=== PATIENT | male | born 1985 | race Two or more races ===

== ENCOUNTER → 2024-12-18 | Outpatient (CLI) | payer MEDICARE, MEDICAID, SELFPAY | END | disposition home or self-care (01) | PROVIDERS: PCP Hospitalist; Referring Provider Hospitalist; Visit Provider Hospitalist | DX: G93.1 Anoxic brain damage, not elsewhere classified (principal); E11.9 Type 2 diabetes mellitus without complications; Z86.718 Personal history of other venous thrombosis and embolism | CPT/HCPCS: 36415; 80185 ==

== ENCOUNTER 2025-01-05 11:12 | Inpatient (IN) | payer MEDICARE, MEDICAID, SELFPAY ==
[2025-01-05] VITALS (58 sets, daily range): BP systolic 68–156; BP diastolic 41–86; PULSE 70–111; RESP 12–34; TEMP 35.6–40.5; O2SAT 89–100; BMI 23.8
--- NOTE | 2025-01-05 11:47 | XR_ITS ---
Examination: AP chest single view Technique one AP portable semiupright chest single view Exam date and time: January 05, 2025 1213 hours INDICATIONS: Fever lethargy today. FINDINGS: Left base retrocardiac pneumonia Normal heart size Tracheostomy tube tip 8.2 cm above dudley IMPRESSION: Left base pneumonia
--- NOTE | 2025-01-05 11:49 | PD.EDADULT ---
ED General RME/HPI General Chief complaint: Fever Stated complaint: LETHARGIC Time Seen by Provider: 01/05/25 14:05 Arrival date/time: 01/05/25 11:12 RME / HPI RME / HPI narrative: Patient is a 39 years old with PMH of anoxic brain injury s/p tracheostomy on MV, PEG tube, suprapubic catheter, right nephrostomy tube due to obstructive uropathy, BUE DVT presented to the ED from SNF due to tachycadia, hypotension and fever. Per SNF symptoms started last night, he was given tylenol for fever but his condition worsened and he was taken to the ED. [employer] Supervisor also reported his urine became dark recently. Patient is non-verbal and cannot provide history. POLST form is present with patient stating he is a full code. Related Data Home Medications ?Medication ?Instructions ?Recorded ?Confirmed Multivitamin And Mineral oral 15 ml G-tube QDAY dietary 01/06/25 01/06/25 liquid supplement acetaminophen 500 mg/15 mL oral 1,000 mg feeding tube Q8H PRN 01/06/25 01/06/25 liquid fever or pain acetylcysteine 200 mg/mL (20 %) 2 ml inhalation Q8H PRN COUGH 01/06/25 01/06/25 solution albuterol sulfate 2.5 mg/3 mL 2.5 mg inhalation Q6H PRN 01/06/25 01/06/25 (0.083 %) solution for nebulization shortness of breath or wheezing amino acids-protein hydrolysate 15 1 ea PO BID For pressure ulcer of 01/06/25 01/06/25 gram-100 kcal/30 mL oral liquid sacral region, stage 4 (Pro-Stat Sugar Free) baclofen 5 mg tablet 5 mg feeding tube TID 01/06/25 01/06/25 bisacodyl 10 mg rectal suppository 10 mg DE QDAY PRN for no BM 01/06/25 01/06/25 (Dulcolax (bisacodyl)) carboxymethylcellulose sodium 0.5 1 drp Both eyes QDAY lubricant for 01/06/25 01/06/25 % eye drops in a dropperette eyes chlorhexidine gluconate 0.12 % 15 ml PO BID 01/06/25 01/06/25 mouthwash diazepam 10 mg/spray (0.1 mL) 10 mg intranasal PRN 01/06/25 01/06/25 nasal spray (Valtoco) enoxaparin 60 mg/0.6 mL 60 mg subcut BID 01/06/25 01/06/25 subcutaneous syringe fludrocortisone 0.1 mg tablet 0.1 mg feeding tube BID adrenal 01/06/25 01/06/25 insufficiency fluocinonide 0.05 % topical 1 applic topical .qshift flaky/dry 01/06/25 01/06/25 solution skin gabapentin 250 mg/5 mL oral 250 mg feeding tube Q8H hiccups 01/06/25 01/06/25 solution guaifenesin 100 mg/5 mL oral liquid 100 mg PO Q6H PRN cough 01/06/25 01/06/25 ipratropium 0.5 mg-albuterol 3 mg 3 ml inhalation QID wheezing 01/06/25 01/06/25 (2.5 mg base)/3 mL nebulization soln levetiracetam 100 mg/mL oral 1,000 mg feeding tube BID 01/06/25 01/14/25 solution lorazepam 0.5 mg tablet 0.5 mg feeding tube Q6H agitation 01/06/25 01/06/25 magnesium hydroxide 400 mg/5 mL 400 mg PO QDAY PRN NO BM 01/06/25 01/06/25 oral suspension (Milk of Magnesia) metoclopramide HCl 5 mg tablet 5 mg feeding tube TID 01/06/25 01/06/25 midodrine 10 mg tablet 10 mg feeding tube TID hypotension 01/06/25 01/06/25 pantoprazole 40 mg granules 40 mg PO QDAY 01/06/25 01/06/25 delayed-release for susp in packet (Protonix) phenytoin 125 mg/5 mL oral 600 mg G-tube BID seizures 01/06/25 01/06/25 suspension sennosides 8.8 mg/5 mL oral syrup 10 ml PO BID 01/06/25 01/06/25 (senna) sodium phosphates 19 gram-7 118 ml DE QDAY PRN NO BM 01/06/25 01/06/25 gram/118 mL enema (Fleet Enema) vitamin B complex-vitamin C-folic 1 tab PO QDAY 01/06/25 01/06/25 acid 0.8 mg tablet (Nephro-Autumn) Previous Rx's ?Medication ?Instructions ?Recorded ertapenem 1 gram solution for 1 g IV QDAY #35 ea 01/12/25 injection Allergies Allergy/AdvReac Type Severity Reaction Status Date / Time No Known Allergies Allergy Verified 01/11/25 11:40 Review of Systems Review of Systems ROS Unobtainable: unobtainable due to medical condition ED Exam Narrative Physical exam: Gen: Well-developed male on MV. HEENT: NCAT, PERRLA, MMM, anicteric conjunctivae. Tracheostomy site appears clean with no discharge. CVS: normal S1 and S2. Regular tachycardia. No M/R/G. Resp: decreased BS B/L. No rhonchi, rales, crackles or wheezing. Abd: soft, non-tender, non-distended. BS+ in all 4 quadrants. PEG tube in place and appears clean. MSK: Good ROM in BUE & BLE. No edema. BLE muscle wasting, skin is dry. 3 large pressure wounds appears stage IV, no pus drainage noted, hyperemia around wounds noted, dressing appears clean. Neuro: limited exam due to medical condition. Course Course Course Narrative: 1319: sepsis alert. 1500: ICU contacted for admission. Quality Measures none Orders Category Date Time Status COVID-19 Screening Questionnaire NOW Care 01/05/25 16:[address] Screening NOW Care 01/05/25 14:09 Active Decision to Admit X1 Care 01/05/25 16:39 Completed Emergency Titration Protocol Stat Care 01/05/25 16:[address] chest abdomen pelvis wo Stat Exams 01/05/25 14:47 Completed CXRP [XR chest 1V portable] Stat Exams 01/05/25 11:47 Completed Blood Culture (Lab) Stat Lab 01/05/25 12:39 Completed CBC Stat Lab 01/05/25 12:39 Completed CMP [Comprehensive Metabolic Panel] Stat Lab 01/05/25 12:39 Completed Lactic Acid [Lactate (Lactic Acid)] Stat Lab 01/05/25 12:39 Completed Lactic Acid, 3 HR Stat Lab 01/05/25 16:24 Completed MRSA Nasal Screen Routine Lab 01/05/25 13:22 Ordered Magnesium Stat Lab 01/05/25 12:39 Completed Procalcitonin Stat Lab 01/05/25 12:39 Completed Urinalysis Stat Lab 01/05/25 12:46 Completed Urine Culture Stat Lab 01/05/25 12:44 Completed Norepinephrine/D5W 8mg/250ml [Levophed in D5W 8mg/250ml Med 01/05/25 16:10 Discontinued ] 8 mg in 250 ml IV 0.05 mcg/kg/min Piper/Tazo 3.375 gm Premix [Zosyn] Med 01/05/25 13:08 Discontinued 3.375 gm in 50 ml IV X1 Sodium Chloride 0.9% 1000 ml [Ns] 1,000 ml Med 01/05/25 11:48 Discontinued IV 999 mls/hr Sodium Chloride 0.9% 1000 ml [Ns] 1,000 ml Med 01/05/25 14:47 Discontinued IV 999 mls/hr Vancomycin Pharmacy to Dose Med 01/05/25 13:15 Discontinued 1 each IV QDAY PRN Vancomycin/Ns 1 gm Ivpb 200 ml Med 01/05/25 13:30 Discontinued IV X1 Vital Signs Vital signs: Vital Signs Temperature 98.1 F 01/05/25 11:16 Pulse Rate 111 H 01/05/25 11:16 Respiratory Rate 22 H 01/05/25 11:16 Blood Pressure 93/62 01/05/25 11:16 Pulse Oximetry (%) 94 L 01/05/25 11:16 Oxygen Delivery Method Mechanical Ventilation 01/05/25 11:16 [facility] Patient data External records reviewed:: [facility] previous records and EMS form 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 Social determinants that could affect healthcare access:: none Patient has the following chronic illnesses:: anoxic brain injury s/p tracheostomy on MV, PEG tube, suprapubic catheter, right nephrostomy tube due to obstructive uropathy, BUE DVT How is presenting disease/condition affected by chronic disease/condition?: exacerbated by Evaluation data The following diagnostics were reviewed and interpreted by me:: lab results, radiology exam(s) and EKG tracing(s) Lab and/or radiology exams considered but not ordered:: CTA Interpretation Summary: Chronic normocytic anemia, ELDON, transaminitis, UTI, bibasilar pneumonia, osteomyelitis right ischium, possible proctitis. Medications Medications considered but not ordered:: na Medication administrations:: Medication Administration History Acetaminophen (Acetaminophen Supp 650 Mg Supp) 650 mg DE Q6HR PRN PRN Reason: Fever > 100.4 or pain 1-3 Stop: 02/14/25 10:31 Last Admin: 01/15/25 20:13 Dose: 650 mg Documented By: Admin: 01/15/25 10:47 Dose: 650 mg Documented By: MGD Albuterol (Albuterol Rt 2.5 Mg/0.5 Ml Nebu) 2.5 mg INH Q6H PRN PRN Reason: shortness of breath or wheezing Stop: 02/06/25 14:58 Baclofen (Baclofen 10 Mg Tablet) 5 mg PO TID KIT Stop: 02/06/25 21:59 Last Admin: 01/16/25 05:13 Dose: 5 mg Documented By: Admin: 01/15/25 22:09 Dose: 5 mg Documented By: Admin: 01/15/25 15:08 Dose: 5 mg Documented By: Admin: 01/15/25 05:35 Dose: 5 mg Documented By: Admin: 01/14/25 21:22 Dose: 5 mg Documented By: Admin: 01/14/25 15:49 Dose: 5 mg Documented By: Admin: 01/14/25 05:47 Dose: 5 mg Documented By: MLÁlvaro Admin: 01/13/25 21:03 Dose: 5 mg Documented By: Admin: 01/13/25 14:51 Dose: 5 mg Documented By: Admin: 01/13/25 05:11 Dose: 5 mg Documented By: MLÁlvaro Admin: 01/12/25 21:35 Dose: 5 mg Documented By: Admin: 01/12/25 17:56 Dose: 5 mg Documented By: Admin: 01/12/25 05:31 Dose: 5 mg Documented By: Admin: 01/11/25 21:05 Dose: 5 mg Documented By: Admin: 01/11/25 14:05 Dose: 5 mg Documented By: Admin: 01/11/25 05:21 Dose: 5 mg Documented By: Admin: 01/10/25 21:10 Dose: 5 mg Documented By: MLÁlvaro Admin: 01/10/25 14:21 Dose: 5 mg Documented By: Admin: 01/10/25 05:30 Dose: 5 mg Documented By: Admin: 01/09/25 21:06 Dose: 5 mg Documented By: Admin: 01/09/25 13:58 Dose: 5 mg Documented By: Admin: 01/09/25 06:02 Dose: 5 mg Documented By: Admin: 01/08/25 21:24 Dose: 5 mg Documented By: Admin: 01/08/25 14:41 Dose: 5 mg Documented By: Admin: 01/08/25 05:11 Dose: 5 mg Documented By: Admin: 01/07/25 21:46 Dose: 5 mg Documented By: MAC Gabapentin 250 Mg/5 (Ml Solution) 0 ea GT Q8HR PRN PRN Reason: HICCUPS Stop: 02/06/25 18:41 Last Admin: 01/16/25 02:29 Dose: 2.5 ml Documented By: Admin: 01/14/25 06:02 Dose: 2.5 ml Documented By: Admin: 01/13/25 19:54 Dose: 2.5 ml Documented By: DAWSON Dextrose (Dextrose 50%-Water Inj 50 Ml Syringe) 25 ml IV Q15MIN PRN PRN Reason: BG 50-70 responsive npo pt Stop: 02/04/25 19:10 Dextrose (Dextrose 50%-Water Inj 50 Ml Syringe) 50 ml IV Q15MIN PRN PRN Reason: BG <50 OR BG <70 & pt unresponsive Stop: 02/04/25 19:10 Enoxaparin Sodium (Enoxaparin Sod Inj 60 Mg/0.6 Ml Syringe) 60 mg SC BID [facility] Stop: 01/21/25 20:59 Last Admin: 01/16/25 09:59 Dose: 60 mg Documented By: Admin: 01/15/25 22:07 Dose: 60 mg Documented By: Admin: 01/15/25 09:20 Dose: 60 mg Documented By: Admin: 01/14/25 21:29 Dose: 60 mg Documented By: Admin: 01/14/25 09:16 Dose: 60 mg Documented By: Admin: 01/13/25 20:50 Dose: 60 mg Documented By: Admin: 01/13/25 08:25 Dose: 60 mg Documented By: Admin: 01/12/25 20:42 Dose: 60 mg Documented By: Admin: 01/12/25 10:02 Dose: 60 mg Documented By: Admin: 01/11/25 20:07 Dose: 60 mg Documented By: Admin: 01/11/25 09:31 Dose: 60 mg Documented By: Admin: 01/10/25 20:45 Dose: 60 mg Documented By: Admin: 01/10/25 09:09 Dose: 60 mg Documented By: Admin: 01/09/25 20:48 Dose: 60 mg Documented By: Admin: 01/09/25 09:33 Dose: 60 mg Documented By: Admin: 01/08/25 21:36 Dose: 60 mg Documented By: Admin: 01/08/25 09:01 Dose: 60 mg Documented By: Admin: 01/07/25 21:46 Dose: 60 mg Documented By: MAC Fludrocortisone Acetate (Fludrocortisone Acetate 0.1 Mg Tablet) 0.1 mg GT BID KIT Stop: 02/06/25 20:59 Last Admin: 01/16/25 09:59 Dose: 0.1 mg Documented By: Admin: 01/15/25 22:09 Dose: 0.1 mg Documented By: Admin: 01/15/25 09:20 Dose: 0.1 mg Documented By: Admin: 01/14/25 21:22 Dose: 0.1 mg Documented By: Admin: 01/14/25 09:16 Dose: 0.1 mg Documented By: Admin: 01/13/25 20:51 Dose: 0.1 mg Documented By: Admin: 01/13/25 08:26 Dose: 0.1 mg Documented By: Admin: 01/12/25 20:43 Dose: 0.1 mg Documented By: Admin: 01/12/25 10:03 Dose: 0.1 mg Documented By: Admin: 01/11/25 20:06 Dose: 0.1 mg Documented By: Admin: 01/11/25 09:32 Dose: 0.1 mg Documented By: Admin: 01/10/25 20:45 Dose: 0.1 mg Documented By: Admin: 01/10/25 09:09 Dose: 0.1 mg Documented By: Admin: 01/09/25 20:48 Dose: 0.1 mg Documented By: Admin: 01/09/25 09:33 Dose: 0.1 mg Documented By: Admin: 01/08/25 21:35 Dose: 0.1 mg Documented By: Admin: 01/08/25 09:01 Dose: 0.1 mg Documented By: Admin: 01/07/25 21:46 Dose: 0.1 mg Documented By: MAC Glucagon (Glucagon Inj 1 Mg Vial) 1 mg IM Q15MIN PRN PRN Reason: BG <70, and no IV access Norepinephrine Bitartrate (Levophed In Ns 16mg/250ml) 16 mg in 250 mls @ 2.868 mls/hr IV .Q24H PRN; Protocol PRN Reason: PER PROTOCOL Stop: 02/15/25 00:01 Last Titration: 01/16/25 06:30 Dose: 0.21 mcg/kg/min, 12.047 mls/hr Documented By: Titration: 01/16/25 06:00 Dose: 0.19 mcg/kg/min, 10.899 mls/hr Documented By: Titration: 01/16/25 05:45 Dose: 0.19 mcg/kg/min, 10.899 mls/hr Documented By: Titration: 01/16/25 05:30 Dose: 0.17 mcg/kg/min, 9.752 mls/hr Documented By: Titration: 01/16/25 05:15 Dose: 0.15 mcg/kg/min, 8.605 mls/hr Documented By: Titration: 01/16/25 05:00 Dose: 0.13 mcg/kg/min, 7.458 mls/hr Documented By: Titration: 01/16/25 04:15 Dose: 0.11 mcg/kg/min, 6.31 mls/hr Documented By: Titration: 01/16/25 04:00 Dose: 0.09 mcg/kg/min, 5.163 mls/hr Documented By: Titration: 01/16/25 03:31 Dose: 0.07 mcg/kg/min, 4.016 mls/hr Documented By: Admin: 01/16/25 03:18 Dose: 0.05 mcg/kg/min, 2.868 mls/hr Documented By: Vasopressin/Sodium Chloride (Vasostrict/Ns Ivpb) 20 unit in 100 mls @ 9 mls/hr IV .Q11H7M PRN; Protocol PRN Reason: PER PROTOCOL Stop: 02/15/25 06:32 Last Admin: 01/16/25 06:38 Dose: 0.03 unit/min, 9 mls/hr Documented By: Meropenem 1,000 mg/ Sodium (Chloride) 50 mls @ 100 mls/hr IV BID KIT Stop: 01/23/25 09:29 Last Admin: 01/16/25 10:03 Dose: 100 mls/hr Documented By: ER Insulin Human Lispro (Insulin Lispro (Admelog) 1 Unit/0.01 Ml Unit) 0 unit SC Q6HR KIT; Protocol Stop: 02/05/25 05:59 Last Admin: 01/16/25 06:18 Dose: 1 unit Documented By: Co-signed By: PRETTY Admin: 01/16/25 00:40 Dose: Not Given Documented By: Non-Admin Reason: Glucose, LOW Admin: 01/15/25 17:39 Dose: Not Given Documented By: MGÁlvaro Non-Admin Reason: Per Protocol Admin: 01/15/25 11:47 Dose: 1 unit Documented By: BILL Co-signed By: MILLA Admin: 01/15/25 05:55 Dose: Not Given Documented By: BOUBACAR Non-Admin Reason: Per Protocol Admin: 01/15/25 00:00 Dose: Not Given Documented By: VR Non-Admin Reason: PER PROTOCOL Admin: 01/14/25 18:20 Dose: Not Given Documented By: BM Non-Admin Reason: Per Protocol Admin: 01/14/25 12:55 Dose: Not Given Documented By: BM Non-Admin Reason: Per Protocol Admin: 01/14/25 05:14 Dose: Not Given Documented By: MLÁlvaro Non-Admin Reason: Per Protocol Admin: 01/14/25 00:09 Dose: Not Given Documented By: MLÁlvaro Non-Admin Reason: Per Protocol Admin: 01/13/25 18:56 Dose: Not Given Documented By: NEYDA Non-Admin Reason: Per Protocol Admin: 01/13/25 11:37 Dose: Not Given Documented By: NEYDA Non-Admin Reason: Per Protocol Admin: 01/13/25 05:07 Dose: 1 unit Documented By: DAWSON Co-signed By: CTF Admin: 01/12/25 23:46 Dose: Not Given Documented By: MLD Non-Admin Reason: Per Protocol Admin: 01/12/25 17:57 Dose: Not Given Documented By: XIONM Non-Admin Reason: Per Protocol Admin: 01/12/25 11:47 Dose: 1 unit Documented By: ROD Co-signed By: ADAL Admin: 01/12/25 05:32 Dose: Not Given Documented By: SA Non-Admin Reason: Per Protocol Admin: 01/12/25 00:00 Dose: Not Given Documented By: SA Non-Admin Reason: Per Protocol Admin: 01/11/25 18:00 Dose: Not Given Documented By: VL Non-Admin Reason: Per Protocol Admin: 01/11/25 13:57 Dose: Not Given Documented By: ROD Non-Admin Reason: Per Protocol Admin: 01/11/25 05:18 Dose: Not Given Documented By: MLD Non-Admin Reason: Per Protocol Admin: 01/10/25 23:25 Dose: Not Given Documented By: MLD Non-Admin Reason: Per Protocol Admin: 01/10/25 17:33 Dose: 1 unit Documented By: CHAY Co-signed By: JUANITA Admin: 01/10/25 11:46 Dose: 1 unit Documented By: CHAY Co-signed By: TOBIN Admin: 01/10/25 05:42 Dose: 1 unit Documented By: DAWSON Co-signed By: JC Admin: 01/10/25 00:00 Dose: Not Given Documented By: MLD Non-Admin Reason: Per Protocol Admin: 01/09/25 18:12 Dose: Not Given Documented By: LW Non-Admin Reason: Per Protocol Admin: 01/09/25 13:00 Dose: Not Given Documented By: LW Non-Admin Reason: Per Protocol Admin: 01/09/25 05:59 Dose: Not Given Documented By: CM Non-Admin Reason: Glucose, LOW Admin: 01/09/25 01:20 Dose: Not Given Documented By: CM Non-Admin Reason: Glucose, LOW Admin: 01/08/25 17:23 Dose: Not Given Documented By: DA Non-Admin Reason: Per Protocol Admin: 01/08/25 12:02 Dose: 1 unit Documented By: JACKELIN Co-signed By: Admin: 01/08/25 05:19 Dose: Not Given Documented By: MAC Non-Admin Reason: Per Protocol Admin: 01/08/25 00:03 Dose: Not Given Documented By: MAC Non-Admin Reason: Per Protocol Admin: 01/07/25 18:41 Dose: 1 unit Documented By: DEEP Co-signed By: Admin: 01/07/25 14:02 Dose: Not Given Documented By: DEEP Non-Admin Reason: Per Protocol Admin: 01/07/25 05:04 Dose: Not Given Documented By: MILLA(2) Non-Admin Reason: Per Protocol Admin: 01/07/25 00:02 Dose: Not Given Documented By: MILLA(2) Non-Admin Reason: Per Protocol Admin: 01/06/25 19:18 Dose: Not Given Documented By: DEEP Non-Admin Reason: Per Protocol Admin: 01/06/25 11:51 Dose: Not Given Documented By: DEEP Non-Admin Reason: Per Protocol Admin: 01/06/25 05:59 Dose: Not Given Documented By: SHELBI Non-Admin Reason: Per Protocol Ipratropium Sells (Ipratropium Rt 0.5 Mg/ 2.5 Ml Nebu) 0.5 mg INH QIDRT KIT Stop: 02/06/25 20:59 Last Admin: 01/16/25 06:18 Dose: 0.5 mg Documented By: Admin: 01/15/25 18:10 Dose: 0.5 mg Documented By: Admin: 01/15/25 16:26 Dose: 0.5 mg Documented By: Admin: 01/15/25 12:46 Dose: 0.5 mg Documented By: Admin: 01/15/25 06:27 Dose: 0.5 mg Documented By: Admin: 01/14/25 18:15 Dose: 0.5 mg Documented By: Admin: 01/14/25 16:47 Dose: 0.5 mg Documented By: Admin: 01/14/25 12:05 Dose: 0.5 mg Documented By: Admin: 01/14/25 06:14 Dose: 0.5 mg Documented By: Admin: 01/13/25 18:35 Dose: 0.5 mg Documented By: Admin: 01/13/25 16:05 Dose: 0.5 mg Documented By: Admin: 01/13/25 10:14 Dose: 0.5 mg Documented By: Admin: 01/13/25 06:17 Dose: 0.5 mg Documented By: Admin: 01/12/25 18:40 Dose: 0.5 mg Documented By: Admin: 01/12/25 15:58 Dose: 0.5 mg Documented By: Admin: 01/12/25 10:31 Dose: 0.5 mg Documented By: Admin: 01/12/25 06:14 Dose: 0.5 mg Documented By: Admin: 01/11/25 21:39 Dose: 0.5 mg Documented By: Admin: 01/11/25 15:29 Dose: 0.5 mg Documented By: Admin: 01/11/25 10:39 Dose: 0.5 mg Documented By: Admin: 01/11/25 06:20 Dose: 0.5 mg Documented By: Admin: 01/10/25 22:28 Dose: 0.5 mg Documented By: Admin: 01/10/25 14:42 Dose: 0.5 mg Documented By: Admin: 01/10/25 10:21 Dose: 0.5 mg Documented By: Admin: 01/10/25 06:38 Dose: 0.5 mg Documented By: Admin: 01/09/25 21:45 Dose: 0.5 mg Documented By: Admin: 01/09/25 15:04 Dose: 0.5 mg Documented By: Admin: 01/09/25 10:55 Dose: 0.5 mg Documented By: Admin: 01/09/25 06:51 Dose: 0.5 mg Documented By: Admin: 01/08/25 22:00 Dose: 0.5 mg Documented By: Admin: 01/08/25 16:18 Dose: 0.5 mg Documented By: Admin: 01/08/25 14:05 Dose: Not Given Documented By: BJ Non-Admin Reason: Not In Room Admin: 01/08/25 07:27 Dose: 0.5 mg Documented By: Admin: 01/07/25 21:57 Dose: 0.5 mg Documented By: IQRA Lactulose (Lactulose Syrup 20 Gm/30 Ml Udc) 20 gm GT TID KIT; Protocol Stop: 02/13/25 21:59 Last Admin: 01/16/25 05:13 Dose: 20 gm Documented By: Admin: 01/15/25 22:08 Dose: 20 gm Documented By: Admin: 01/15/25 15:08 Dose: 20 gm Documented By: Admin: 01/15/25 05:33 Dose: 20 gm Documented By: Admin: 01/14/25 21:23 Dose: 20 gm Documented By: BOUBACAR Lansoprazole (Lansoprazole 30 Mg Tab.Rap.Dr) 30 mg GT QDAY KIT Stop: 02/07/25 08:59 Last Admin: 01/16/25 10:03 Dose: 30 mg Documented By: Admin: 01/15/25 09:19 Dose: 30 mg Documented By: Admin: 01/14/25 09:16 Dose: 30 mg Documented By: Admin: 01/13/25 08:26 Dose: 30 mg Documented By: Admin: 01/12/25 10:03 Dose: 30 mg Documented By: Admin: 01/11/25 09:32 Dose: 30 mg Documented By: Admin: 01/10/25 09:09 Dose: 30 mg Documented By: CHAY Levalbuterol HCl (Levalbuterol Rt 1.25 Mg/0.5 Ml Nebu) 1.25 mg INH QIDRT KIT Stop: 02/06/25 20:59 Last Admin: 01/16/25 06:18 Dose: 1.25 mg Documented By: Admin: 01/15/25 18:10 Dose: 1.25 mg Documented By: Admin: 01/15/25 16:26 Dose: 1.25 mg Documented By: Admin: 01/15/25 12:46 Dose: 1.25 mg Documented By: Admin: 01/15/25 06:27 Dose: 1.25 mg Documented By: Admin: 01/14/25 18:15 Dose: 1.25 mg Documented By: Admin: 01/14/25 16:47 Dose: 1.25 mg Documented By: Admin: 01/14/25 12:05 Dose: 1.25 mg Documented By: Admin: 01/14/25 06:14 Dose: 1.25 mg Documented By: Admin: 01/13/25 18:35 Dose: 1.25 mg Documented By: Admin: 01/13/25 16:05 Dose: 1.25 mg Documented By: Admin: 01/13/25 10:14 Dose: 1.25 mg Documented By: Admin: 01/13/25 06:17 Dose: 1.25 mg Documented By: Admin: 01/12/25 18:40 Dose: 1.25 mg Documented By: Admin: 01/12/25 15:58 Dose: 1.25 mg Documented By: Admin: 01/12/25 10:31 Dose: 1.25 mg Documented By: Admin: 01/12/25 06:14 Dose: 1.25 mg Documented By: Admin: 01/11/25 21:39 Dose: 1.25 mg Documented By: Admin: 01/11/25 15:29 Dose: 1.25 mg Documented By: Admin: 01/11/25 10:39 Dose: 1.25 mg Documented By: Admin: 01/11/25 06:20 Dose: 1.25 mg Documented By: Admin: 01/10/25 22:29 Dose: 1.25 mg Documented By: Admin: 01/10/25 14:42 Dose: 1.25 mg Documented By: Admin: 01/10/25 10:21 Dose: 1.25 mg Documented By: Admin: 01/10/25 06:38 Dose: 1.25 mg Documented By: Admin: 01/09/25 21:45 Dose: 1.25 mg Documented By: Admin: 01/09/25 15:04 Dose: 1.25 mg Documented By: Admin: 01/09/25 10:55 Dose: 1.25 mg Documented By: Admin: 01/09/25 06:51 Dose: 1.25 mg Documented By: Admin: 01/08/25 22:00 Dose: 1.25 mg Documented By: Admin: 01/08/25 16:18 Dose: 1.25 mg Documented By: Admin: 01/08/25 14:05 Dose: Not Given Documented By: BJ Non-Admin Reason: Allergy Admin: 01/08/25 07:27 Dose: 1.25 mg Documented By: Admin: 01/07/25 21:57 Dose: 1.25 mg Documented By: IQRA Levetiracetam (Levetiracetam Liqd 500 Mg/5 Ml Udc) 1,000 mg GT BID KIT Stop: 02/13/25 13:44 Last Admin: 01/16/25 09:59 Dose: 1,000 mg Documented By: Admin: 01/15/25 22:07 Dose: 1,000 mg Documented By: Admin: 01/15/25 09:20 Dose: 500 mg Documented By: Admin: 01/14/25 21:22 Dose: 1,000 mg Documented By: Admin: 01/14/25 15:59 Dose: Not Given Documented By: BM Non-Admin Reason: Cancelled by Provider Comments: Too close to night dose, Dr. Crespo ordered to hold and wait til night dosage to start Midodrine (Midodrine 5 Mg Tablet) 10 mg PO TID KIT Stop: 02/05/25 08:59 Last Admin: 01/15/25 20:22 Dose: 10 mg Documented By: ILIR Comments: ok to administer now per Dr. Buenrostro Admin: 01/15/25 14:23 Dose: Not Given Documented By: MGD Non-Admin Reason: Vital Signs Admin: 01/15/25 05:33 Dose: 10 mg Documented By: Admin: 01/14/25 21:22 Dose: 10 mg Documented By: Admin: 01/14/25 15:49 Dose: 10 mg Documented By: Admin: 01/14/25 05:47 Dose: 10 mg Documented By: Admin: 01/13/25 21:04 Dose: 10 mg Documented By: Admin: 01/13/25 14:51 Dose: 10 mg Documented By: Admin: 01/13/25 05:11 Dose: 10 mg Documented By: Admin: 01/12/25 21:35 Dose: 10 mg Documented By: Admin: 01/12/25 17:56 Dose: 10 mg Documented By: Admin: 01/12/25 05:32 Dose: 10 mg Documented By: Admin: 01/11/25 21:05 Dose: 10 mg Documented By: Admin: 01/11/25 14:05 Dose: 10 mg Documented By: Admin: 01/11/25 05:21 Dose: 10 mg Documented By: Admin: 01/10/25 21:10 Dose: 10 mg Documented By: Admin: 01/10/25 14:21 Dose: 10 mg Documented By: Admin: 01/10/25 05:17 Dose: Not Given Documented By: DAWSON Non-Admin Reason: Vital Signs Admin: 01/09/25 21:06 Dose: Not Given Documented By: DAWSON Non-Admin Reason: Vital Signs Admin: 01/09/25 13:57 Dose: 10 mg Documented By: Admin: 01/09/25 06:02 Dose: 10 mg Documented By: Admin: 01/08/25 21:00 Dose: Not Given Documented By: ARIADNE Non-Admin Reason: Vital Signs Admin: 01/08/25 14:43 Dose: 10 mg Documented By: Admin: 01/08/25 05:11 Dose: 10 mg Documented By: Admin: 01/07/25 21:47 Dose: Not Given Documented By: MAC Non-Admin Reason: Per Protocol Admin: 01/07/25 14:02 Dose: Not Given Documented By: DEEP Non-Admin Reason: Per Protocol Admin: 01/07/25 05:22 Dose: 10 mg Documented By: MILLA(2) Admin: 01/06/25 21:26 Dose: 10 mg Documented By: MILLA(2) Multivitamins/Minerals (Multivitamin 15 Ml Udc) 15 ml PO QDAY KIT Stop: 02/07/25 08:59 Last Admin: 01/16/25 09:59 Dose: 15 ml Documented By: Admin: 01/15/25 09:20 Dose: 15 ml Documented By: [email or web address] Admin: 01/14/25 09:18 Dose: 15 ml Documented By: Admin: 01/13/25 08:26 Dose: 15 ml Documented By: Admin: 01/12/25 10:03 Dose: 15 ml Documented By: Admin: 01/11/25 09:32 Dose: 15 ml Documented By: [email or web address] Admin: 01/10/25 09:08 Dose: 15 ml Documented By: Admin: 01/09/25 09:32 Dose: 15 ml Documented By: Admin: 01/08/25 09:01 Dose: 15 ml Documented By: [email or web address] Ondansetron HCl (Ondansetron Inj 2 Mg/Ml Inj 2 Ml) 4 mg IV Q6H PRN; Protocol PRN Reason: NAUSEA OR VOMITING Stop: 02/04/25 17:08 Pharmacy Consult (Vancomycin Pharmacy To Dose 1 Each Each) 1 each IV QDAY PRN PRN Reason: consult Stop: 02/15/25 08:59 Phenytoin (Phenytoin 100 Mg/4 Ml Udc) 600 mg GT BID KIT Stop: 02/06/25 20:59 Last Admin: 01/15/25 22:09 Dose: 600 mg Documented By: Admin: 01/15/25 09:20 Dose: 600 mg Documented By: MGÁlvaro Admin: 01/14/25 21:23 Dose: 600 mg Documented By: Admin: 01/14/25 09:18 Dose: 600 mg Documented By: Admin: 01/13/25 20:51 Dose: 600 mg Documented By: Admin: 01/13/25 08:26 Dose: 600 mg Documented By: Admin: 01/12/25 20:43 Dose: 600 mg Documented By: Admin: 01/12/25 10:03 Dose: 600 mg Documented By: Admin: 01/11/25 20:06 Dose: 600 mg Documented By: Admin: 01/11/25 10:13 Dose: 600 mg Documented By: ADAL Comments: Provided late by pharmacy; NOW available. Admin: 01/10/25 09:02 Dose: Not Given Documented By: CHAY Non-Admin Reason: Per pharmacy changing to IV Admin: 01/09/25 20:49 Dose: 600 mg Documented By: Admin: 01/09/25 11:32 Dose: 600 mg Documented By: NEYDA Comments: made available now Admin: 01/08/25 21:22 Dose: 600 mg Documented By: Admin: 01/08/25 09:01 Dose: 600 mg Documented By: Admin: 01/07/25 22:48 Dose: 600 mg Documented By: MAC Sodium Chloride (Sodium Chloride Rt Lala 0.9% 3 Ml Nebu) 3 ml INH PRN PRN PRN Reason: SOLN Stop: 02/06/25 17:54 Vitamin B Complex/Vit C/Folic Acid (Vit B12/Vit C/Fa (Nephrovite) Tablet) 1 tab PO QDAY KIT Stop: 02/07/25 08:59 Last Admin: 01/16/25 10:03 Dose: 1 tab Documented By: Admin: 01/15/25 09:20 Dose: 1 tab Documented By: Admin: 01/14/25 09:18 Dose: 1 tab Documented By: Admin: 01/13/25 08:26 Dose: 1 tab Documented By: Admin: 01/12/25 10:03 Dose: 1 tab Documented By: Admin: 01/11/25 09:32 Dose: 1 tab Documented By: Admin: 01/10/25 09:08 Dose: 1 tab Documented By: Admin: 01/09/25 09:33 Dose: 1 tab Documented By: Admin: 01/08/25 09:01 Dose: 1 tab Documented By: JACKELIN Discontinued Medications Albuterol (Albuterol Rt 2.5 Mg/3 Ml Nebu) 2.5 mg INH Q6H PRN PRN Reason: shortness of breath or wheezing Stop: 02/06/25 14:58 Albuterol/Ipratropium (Albuterol/Ipratropium (Duoneb) Rt Lala 3 Ml Nebu) 3 ml INH QID KIT Stop: 02/06/25 16:59 Albuterol/Ipratropium (Albuterol/Ipratropium (Duoneb) Rt Lala 3 Ml Nebu) 3 ml INH QID KIT Stop: 02/06/25 17:59 Albuterol/Ipratropium (Albuterol/Ipratropium (Duoneb) Rt Lala 3 Ml Nebu) 3 ml INH QIDRT KIT Stop: 02/06/25 15:59 Last Admin: 01/07/25 16:06 Dose: 3 ml Documented By: JULIAN Heparin Sodium (Beef Lung) (Heparin Sod Lock Syr 100 Unit/Ml) Confirm Administered Dose 500 unit .ROUTE .STK-MED ONE Stop: 01/12/25 15:01 Last Admin: 01/12/25 15:09 Dose: Not Given Documented By: EC Non-Admin Reason: Duplicate Medication on eMAR Heparin Sodium (Beef Lung) (Heparin Sod Lock Syr 100 Unit/Ml) 500 unit [facility] X1 ONE Stop: 01/12/25 15:09 Last Admin: 01/12/25 15:10 Dose: 500 unit Documented By: EC Heparin Sodium (Beef Lung) (Heparin Sod Lock Syr 100 Unit/Ml) Confirm Administered Dose 500 unit .ROUTE .STK-MED ONE Stop: 01/14/25 14:40 Last Admin: 01/14/25 15:32 Dose: Not Given Documented By: CU Non-Admin Reason: Override Medication Heparin Sodium (Beef Lung) (Heparin Sod Lock Syr 100 Unit/Ml) 500 unit [facility] X1 ONE Stop: 01/14/25 15:02 Last Admin: 01/14/25 15:02 Dose: 500 unit Documented By: ROSELYN Comments: to sterile field Heparin Sodium (Porcine) (Heparin Sod Inj 5000 Unit/Ml Vial) 5,000 unit SC Q8HR KIT Stop: 01/19/25 21:59 Last Admin: 01/07/25 05:23 Dose: 5,000 unit Documented By: MILLA(2) Co-signed By: MARNI Admin: 01/06/25 21:27 Dose: 5,000 unit Documented By: MILLA(2) Co-signed By: PRETTY Admin: 01/06/25 14:20 Dose: 5,000 unit Documented By: DEEP Co-signed By: SACHIN Admin: 01/06/25 06:09 Dose: 5,000 unit Documented By: SHELBI Co-signed By: JAIME Admin: 01/05/25 21:18 Dose: 5,000 unit Documented By: SHELBI Co-signed By: PRETTY Sodium Chloride (Ns) 1,000 mls @ 999 mls/hr IV .Q1H1M ONE Stop: 01/05/25 12:48 Last Infusion: 01/05/25 13:48 Dose: Infused Documented By: Admin: 01/05/25 12:43 Dose: 999 mls/hr Documented By: BD Piperacillin/Tazobactam/Dextrose (Zosyn) 3.375 gm in 50 mls @ 100 mls/hr IV X1 ONE Stop: 01/05/25 13:37 Last Infusion: 01/05/25 14:28 Dose: Infused Documented By: Admin: 01/05/25 13:47 Dose: 100 mls/hr Documented By: BD Vancomycin/Sodium Chloride (Vancomycin/Ns 1 Gm Ivpb) 200 mls @ 120 mls/hr IV X1 ONE Stop: 01/05/25 15:09 Last Infusion: 01/05/25 16:26 Dose: Infused Documented By: Admin: 01/05/25 14:30 Dose: 120 mls/hr Documented By: BD Sodium Chloride (Ns) 1,000 mls @ 999 mls/hr IV .Q1H1M ONE Stop: 01/05/25 15:47 Last Infusion: 01/05/25 16:25 Dose: Infused Documented By: Admin: 01/05/25 15:17 Dose: 999 mls/hr Documented By: BD Norepinephrine/Dextrose (Levophed In D5w 8mg/250ml) 8 mg in 250 mls @ 6.294 mls/hr IV .Q24H PRN; Protocol PRN Reason: PER PROTOCOL Stop: 02/04/25 16:09 Last Titration: 01/06/25 11:08 Dose: 0 mcg/kg/min, 0 mls/hr Documented By: Titration: 01/06/25 10:00 Dose: 0.02 mcg/kg/min, 2.517 mls/hr Documented By: Titration: 01/06/25 09:00 Dose: 0.04 mcg/kg/min, 5.035 mls/hr Documented By: Titration: 01/06/25 08:52 Dose: 0.04 mcg/kg/min, 5.035 mls/hr Documented By: Titration: 01/06/25 08:38 Dose: 0.06 mcg/kg/min, 7.552 mls/hr Documented By: Admin: 01/06/25 08:19 Dose: 0.08 mcg/kg/min, 10.07 mls/hr Documented By: Titration: 01/06/25 08:19 Dose: Infused Documented By: Titration: 01/06/25 08:00 Dose: 0.1 mcg/kg/min, 12.587 mls/hr Documented By: Titration: 01/06/25 07:00 Dose: 0.1 mcg/kg/min, 12.587 mls/hr Documented By: Titration: 01/06/25 06:00 Dose: 0.1 mcg/kg/min, 12.587 mls/hr Documented By: Titration: 01/06/25 05:00 Dose: 0.1 mcg/kg/min, 12.587 mls/hr Documented By: Titration: 01/06/25 04:00 Dose: 0.1 mcg/kg/min, 12.587 mls/hr Documented By: Titration: 01/06/25 03:00 Dose: 0.1 mcg/kg/min, 12.587 mls/hr Documented By: Titration: 01/06/25 02:00 Dose: 0.1 mcg/kg/min, 12.587 mls/hr Documented By: Titration: 01/06/25 02:00 Dose: 0.1 mcg/kg/min, 12.587 mls/hr Documented By: Titration: 01/06/25 01:00 Dose: 0.1 mcg/kg/min, 12.587 mls/hr Documented By: Titration: 01/06/25 00:00 Dose: 0.1 mcg/kg/min, 12.587 mls/hr Documented By: Titration: 01/05/25 23:00 Dose: 0.1 mcg/kg/min, 12.587 mls/hr Documented By: Titration: 01/05/25 22:35 Dose: 0.1 mcg/kg/min, 12.587 mls/hr Documented By: Titration: 01/05/25 22:15 Dose: 0.12 mcg/kg/min, 15.105 mls/hr Documented By: Titration: 01/05/25 22:00 Dose: 0.14 mcg/kg/min, 17.622 mls/hr Documented By: Titration: 01/05/25 21:33 Dose: 0.14 mcg/kg/min, 17.622 mls/hr Documented By: Titration: 01/05/25 21:10 Dose: 0.16 mcg/kg/min, 20.14 mls/hr Documented By: Titration: 01/05/25 21:00 Dose: 0.18 mcg/kg/min, 22.657 mls/hr Documented By: Titration: 01/05/25 20:48 Dose: 0.18 mcg/kg/min, 22.657 mls/hr Documented By: Titration: 01/05/25 20:36 Dose: 0.2 mcg/kg/min, 25.175 mls/hr Documented By: Titration: 01/05/25 20:09 Dose: 0.22 mcg/kg/min, 27.692 mls/hr Documented By: Titration: 01/05/25 19:10 Dose: 0.22 mcg/kg/min, 27.692 mls/hr Documented By: Titration: 01/05/25 19:05 Dose: 0.22 mcg/kg/min, 27.692 mls/hr Documented By: Titration: 01/05/25 19:00 Dose: 0.22 mcg/kg/min, 27.692 mls/hr Documented By: Titration: 01/05/25 18:55 Dose: 0.22 mcg/kg/min, 27.692 mls/hr Documented By: Titration: 01/05/25 18:50 Dose: 0.22 mcg/kg/min, 27.692 mls/hr Documented By: Titration: 01/05/25 18:40 Dose: 0.22 mcg/kg/min, 27.692 mls/hr Documented By: Titration: 01/05/25 18:35 Dose: 0.22 mcg/kg/min, 27.692 mls/hr Documented By: Titration: 01/05/25 18:30 Dose: 0.2 mcg/kg/min, 25.175 mls/hr Documented By: Titration: 01/05/25 18:25 Dose: 0.18 mcg/kg/min, 22.657 mls/hr Documented By: Titration: 01/05/25 18:20 Dose: 0.18 mcg/kg/min, 22.657 mls/hr Documented By: Titration: 01/05/25 18:05 Dose: 0.16 mcg/kg/min, 20.14 mls/hr Documented By: Titration: 01/05/25 18:00 Dose: 0.14 mcg/kg/min, 17.622 mls/hr Documented By: Titration: 01/05/25 17:55 Dose: 0.14 mcg/kg/min, 17.622 mls/hr Documented By: Titration: 01/05/25 16:50 Dose: 0.12 mcg/kg/min, 15.105 mls/hr Documented By: Titration: 01/05/25 16:45 Dose: 0.12 mcg/kg/min, 15.105 mls/hr Documented By: Titration: 01/05/25 16:40 Dose: 0.1 mcg/kg/min, 12.587 mls/hr Documented By: Admin: 01/05/25 16:35 Dose: 0.05 mcg/kg/min, 6.294 mls/hr Documented By: BD Piperacillin/Tazobactam/Dextrose (Zosyn) 3.375 gm in 50 mls @ 12.5 mls/hr IV Q8HR KIT Stop: 01/12/25 21:59 Last Admin: 01/12/25 05:31 Dose: 12.5 mls/hr Documented By: Infusion: 01/12/25 01:05 Dose: Infused Documented By: Admin: 01/11/25 21:05 Dose: 12.5 mls/hr Documented By: Infusion: 01/11/25 18:06 Dose: Infused Documented By: Admin: 01/11/25 14:06 Dose: 12.5 mls/hr Documented By: XIONJose Infusion: 01/11/25 09:21 Dose: Infused Documented By: Admin: 01/11/25 05:21 Dose: 12.5 mls/hr Documented By: Infusion: 01/11/25 01:10 Dose: Infused Documented By: Admin: 01/10/25 21:10 Dose: 12.5 mls/hr Documented By: Infusion: 01/10/25 18:21 Dose: Infused Documented By: Admin: 01/10/25 14:21 Dose: 12.5 mls/hr Documented By: Infusion: 01/10/25 09:29 Dose: Infused Documented By: Admin: 01/10/25 05:29 Dose: 12.5 mls/hr Documented By: Infusion: 01/10/25 01:06 Dose: Infused Documented By: Admin: 01/09/25 21:06 Dose: 12.5 mls/hr Documented By: Infusion: 01/09/25 17:57 Dose: Infused Documented By: Admin: 01/09/25 13:57 Dose: 12.5 mls/hr Documented By: Infusion: 01/09/25 10:03 Dose: Infused Documented By: Admin: 01/09/25 06:03 Dose: 12.5 mls/hr Documented By: Infusion: 01/09/25 01:35 Dose: Infused Documented By: Admin: 01/08/25 21:35 Dose: 12.5 mls/hr Documented By: Infusion: 01/08/25 18:42 Dose: Infused Documented By: Admin: 01/08/25 14:42 Dose: 12.5 mls/hr Documented By: Infusion: 01/08/25 09:11 Dose: Infused Documented By: Admin: 01/08/25 05:11 Dose: 12.5 mls/hr Documented By: Infusion: 01/08/25 04:40 Dose: Infused Documented By: Admin: 01/07/25 21:46 Dose: 12.5 mls/hr Documented By: Infusion: 01/07/25 19:05 Dose: Infused Documented By: Admin: 01/07/25 14:03 Dose: 12.5 mls/hr Documented By: Infusion: 01/07/25 09:23 Dose: Infused Documented By: Admin: 01/07/25 05:23 Dose: 12.5 mls/hr Documented By: MILLA(2) Infusion: 01/07/25 01:27 Dose: Infused Documented By: MILLA(2) Admin: 01/06/25 21:27 Dose: 12.5 mls/hr Documented By: MILLA(2) Infusion: 01/06/25 18:20 Dose: Infused Documented By: MILLA(2) Admin: 01/06/25 14:20 Dose: 12.5 mls/hr Documented By: Infusion: 01/06/25 10:09 Dose: Infused Documented By: Admin: 01/06/25 06:09 Dose: 12.5 mls/hr Documented By: Infusion: 01/06/25 01:18 Dose: Infused Documented By: Admin: 01/05/25 21:18 Dose: 12.5 mls/hr Documented By: SHELBI Lactated Ringer's (Lactated Ringers) 500 mls @ 999 mls/hr IV .Q31M ONE Stop: 01/05/25 18:36 Last Admin: 01/05/25 19:17 Dose: Not Given Documented By: CVL Non-Admin Reason: Cancelled by Provider Lactated Ringer's (Lactated Ringers) 1,000 mls @ 999 mls/hr IV .Q1H1M ONE Stop: 01/05/25 19:06 Last Admin: 01/05/25 19:53 Dose: 999 mls/hr Documented By: CVL Vasopressin/Sodium Chloride (Vasostrict/Ns Ivpb) 20 unit in 100 mls @ 9 mls/hr IV .Q11H7M PRN; Protocol PRN Reason: PER PROTOCOL Stop: 02/04/25 18:49 Potassium Chloride (Kcl Ivpb) 10 meq in 100 mls @ 100 mls/hr IV Q1H KIT Stop: 01/06/25 11:27 Last Admin: 01/06/25 12:35 Dose: 100 mls/hr Documented By: Infusion: 01/06/25 12:24 Dose: Infused Documented By: Admin: 01/06/25 11:24 Dose: 100 mls/hr Documented By: Infusion: 01/06/25 11:05 Dose: Infused Documented By: Admin: 01/06/25 10:05 Dose: 100 mls/hr Documented By: Infusion: 01/06/25 09:52 Dose: Infused Documented By: Admin: 01/06/25 08:52 Dose: 100 mls/hr Documented By: DEEP Vancomycin/Sodium Chloride (Vancomycin/Ns 1 Gm Ivpb) 200 mls @ 120 mls/hr IV Q24H KIT Stop: 01/13/25 09:59 Last Admin: 01/08/25 13:00 Dose: Not Given Documented By: JACKELIN Non-Admin Reason: Discontinued Infusion: 01/07/25 19:05 Dose: Infused Documented By: Admin: 01/07/25 10:14 Dose: 120 mls/hr Documented By: Infusion: 01/06/25 12:46 Dose: Infused Documented By: Admin: 01/06/25 11:05 Dose: 120 mls/hr Documented By: DEEP Vancomycin/Sodium Chloride (Vancomycin/Ns 750 Mg Ivpb) 750 mg in 150 mls @ 120 mls/hr IV DAILY@1000 KIT Stop: 01/17/25 09:59 Last Admin: 01/10/25 09:47 Dose: 120 mls/hr Documented By: CHAY Phenytoin Sodium 500 mg/ (Sodium Chloride) 60 mls @ 120 mls/hr IV BID KIT Stop: 01/10/25 09:44 Last Admin: 01/10/25 09:48 Dose: 120 mls/hr Documented By: CHAY Phenytoin Sodium 500 mg/ (Sodium Chloride) 60 mls @ 120 mls/hr IV BID KIT Stop: 01/10/25 19:29 Last Admin: 01/10/25 20:00 Dose: 120 mls/hr Documented By: MLÁlvaro Ertapenem 1,000 mg/ Sodium (Chloride) 50 mls @ 100 mls/hr IV QDAY KIT; Protocol Stop: 01/19/25 08:59 Last Admin: 01/14/25 09:16 Dose: 100 mls/hr Documented By: Infusion: 01/13/25 08:56 Dose: Infused Documented By: Admin: 01/13/25 08:26 Dose: 100 mls/hr Documented By: Infusion: 01/12/25 11:07 Dose: Infused Documented By: Admin: 01/12/25 10:37 Dose: 100 mls/hr Documented By: XIONJose Piperacillin Sod/Tazobactam (Sod 3.375 gm/ Sodium Chloride) 50 mls @ 12.5 mls/hr IV Q8HR [facility]; Protocol Stop: 01/22/25 06:14 Last Admin: 01/15/25 07:02 Dose: Not Given Documented By: BOUBACAR Non-Admin Reason: changed to pre mixed bag Vancomycin HCl (Vancomycin/Water 1250 Mg Ivpb) 250 mls @ 120 mls/hr IV X1 ONE Stop: 01/15/25 09:04 Last Admin: 01/15/25 08:30 Dose: 120 mls/hr Documented By: MGÁlvaro Piperacillin/Tazobactam/Dextrose (Zosyn) 3.375 gm in 50 mls @ 12.5 mls/hr IV Q8HR KIT Stop: 01/22/25 06:59 Last Admin: 01/15/25 06:54 Dose: 12.5 mls/hr Documented By: BOUBACAR Cefepime HCl 1 gm/ Sodium (Chloride) 50 mls @ 100 mls/hr IV Q12HR [facility] Stop: 01/22/25 10:46 Last Admin: 01/16/25 08:15 Dose: Not Given Documented By: ER Non-Admin Reason: d/c chart clean up Cefepime HCl 2 gm/ Sodium (Chloride) 50 mls @ 100 mls/hr IV Q12HR KIT Stop: 01/22/25 10:59 Last Admin: 01/15/25 22:07 Dose: 100 mls/hr Documented By: Infusion: 01/15/25 17:56 Dose: Infused Documented By: Admin: 01/15/25 17:26 Dose: 100 mls/hr Documented By: BILL Lactated Ringer's (Lactated Ringers) 500 mls @ 999 mls/hr IV .Q31M ONE Stop: 01/15/25 16:21 Last Admin: 01/15/25 17:26 Dose: 999 mls/hr Documented By: BILL Sodium Chloride (Ns) 250 mls @ 999 mls/hr IV .Q16M ONE Stop: 01/15/25 20:28 Last Admin: 01/15/25 20:17 Dose: 999 mls/hr Documented By: ILIR Sodium Chloride (Ns) 500 mls @ 999 mls/hr IV .Q31M ONE Stop: 01/15/25 22:28 Last Admin: 01/15/25 22:11 Dose: 999 mls/hr Documented By: ILIR Sodium Chloride (Ns) 500 mls @ 999 mls/hr IV .Q31M ONE Stop: 01/15/25 22:36 Last Admin: 01/16/25 00:27 Dose: 999 mls/hr Documented By: Vancomycin/Sodium Chloride (Vancomycin/Ns 1 Gm Ivpb) 200 mls @ 120 mls/hr IV X1 KIT Stop: 01/16/25 07:39 Vasopressin/Sodium Chloride (Vasostrict/Ns Ivpb) 20 unit in 100 mls @ 9 mls/hr IV .Q11H7M PRN; Protocol PRN Reason: PER PROTOCOL Stop: 02/15/25 06:33 Piperacillin Sod/Tazobactam (Sod 4.5 gm/ Sodium Chloride) 100 mls @ 200 mls/hr IV Q8HR IKT Stop: 01/23/25 07:14 Insulin Human Lispro (Insulin Lispro (Admelog) 1 Unit/0.01 Ml Unit) 0 unit SC AC KIT; Protocol Stop: 02/05/25 07:29 Lactulose (Lactulose Syrup 20 Gm/30 Ml Udc) 20 gm PO QDAY KIT; Protocol Stop: 02/13/25 05:04 Last Admin: 01/14/25 06:30 Dose: Not Given Documented By: MLD Non-Admin Reason: Wrong Time Lactulose (Lactulose Syrup 20 Gm/30 Ml Udc) 20 gm GT QDAY KIT; Protocol Stop: 02/13/25 05:14 Last Admin: 01/14/25 09:09 Dose: Not Given Documented By: DARLINE Non-Admin Reason: Already received daily dose Admin: 01/14/25 05:47 Dose: 20 gm Documented By: DAWSON Levetiracetam (Levetiracetam Liqd 500 Mg/5 Ml Udc) 100 mg GT BID KIT Stop: 02/06/25 20:59 Last Admin: 01/14/25 10:02 Dose: Not Given Documented By: DARLINE Non-Admin Reason: Duplicate Medication on eMAR Admin: 01/13/25 20:50 Dose: 100 mg Documented By: Admin: 01/13/25 08:26 Dose: 100 mg Documented By: Admin: 01/12/25 20:43 Dose: 100 mg Documented By: Admin: 01/12/25 10:03 Dose: 100 mg Documented By: Admin: 01/11/25 20:06 Dose: 100 mg Documented By: Admin: 01/11/25 09:31 Dose: 100 mg Documented By: Admin: 01/10/25 20:45 Dose: 100 mg Documented By: Admin: 01/10/25 09:06 Dose: 100 mg Documented By: Admin: 01/09/25 20:49 Dose: 100 mg Documented By: Admin: 01/09/25 09:32 Dose: 100 mg Documented By: Admin: 01/08/25 21:22 Dose: 100 mg Documented By: Admin: 01/08/25 09:01 Dose: 100 mg Documented By: Admin: 01/07/25 21:45 Dose: 100 mg Documented By: MAC Levetiracetam (Levetiracetam Liqd 500 Mg/5 Ml Udc) 100 mg GT BID KIT Stop: 02/06/25 20:59 Levetiracetam (Levetiracetam Liqd 500 Mg/5 Ml Udc) 100 mg GT BID KIT Stop: 02/13/25 09:29 Last Admin: 01/14/25 09:21 Dose: 100 mg Documented By: DARLINE Lidocaine HCl (Lidocaine Hcl 1% 20 Ml Vial) Confirm Administered Dose 20 ml .ROUTE .STK-MED ONE Stop: 01/05/25 20:26 Last Admin: 01/06/25 07:48 Dose: Not Given Documented By: DEEP Non-Admin Reason: Override Medication Comments: PREVIOUS SHIFT Lidocaine HCl (Lidocaine Hcl 1% 20 Ml Vial) 10 ml INFL X1 ONE Stop: 01/09/25 19:18 Last Admin: 01/05/25 20:28 Dose: 10 ml Documented By: SHELBI Comments: RETRO ADMINSTRATION. ADMINISTED BY DR ESCALONA FOR STUTURING NEPHROSTOMY TUBE SITE. Lidocaine HCl (Lidocaine Inj Pf 1% 30 Ml Vial) Confirm Administered Dose 30 ml .ROUTE .STK-MED ONE Stop: 01/12/25 15:02 Last Admin: 01/12/25 15:09 Dose: Not Given Documented By: EC Non-Admin Reason: Duplicate Medication on eMAR Lidocaine HCl (Lidocaine Inj Pf 1% 30 Ml Vial) 30 ml INFL X1 ONE Stop: 01/12/25 15:09 Last Admin: 01/12/25 15:10 Dose: 30 ml Documented By: CHUN Comments: placed on sterile field Lidocaine HCl (Lidocaine Inj Pf 1% 30 Ml Vial) Confirm Administered Dose 30 ml .ROUTE .STK-MED ONE Stop: 01/14/25 14:40 Last Admin: 01/14/25 15:32 Dose: Not Given Documented By: ROSELYN Non-Admin Reason: Override Medication Lidocaine HCl (Lidocaine Inj Pf 1% 30 Ml Vial) 1 ml INFL X1 ONE Stop: 01/14/25 15:02 Last Admin: 01/14/25 15:02 Dose: 1 ml Documented By: ROSELYN Comments: to sterile field administered by dr herrmann Midodrine (Midodrine 5 Mg Tablet) 10 mg PO TID [facility] Stop: 02/05/25 08:59 Last Admin: 01/06/25 14:20 Dose: 10 mg Documented By: Admin: 01/06/25 11:05 Dose: 10 mg Documented By: DEEP Home Medication- Please Speak With Patient Caregiver To Have Rx Brought To [facility] 1 each PO BID [facility] Stop: 02/06/25 20:59 Non-Formulary Medication (Midodrine) 10 mg FEED TUBE TID [facility] Stop: 02/06/25 21:59 Non-Formulary Medication (Ertapenem) 1 gram IV DAILY [facility] Stop: 02/16/25 13:41 Pantoprazole Sodium (Pantoprazole Inj 40 Mg Vial) 40 mg IVP QDAY [facility] Stop: 02/04/25 17:14 Last Admin: 01/07/25 10:14 Dose: 40 mg Documented By: Admin: 01/06/25 08:54 Dose: 40 mg Documented By: Admin: 01/05/25 19:49 Dose: 40 mg Documented By: ANGELES Pantoprazole Sodium (Pantoprazole 40 Mg Tablet) 40 mg PO QDAY KIT Stop: 02/07/25 08:59 Pantoprazole Sodium (Pantoprazole Inj 40 Mg Vial) 40 mg IVP QDAY KIT Stop: 02/07/25 08:59 Last Admin: 01/09/25 09:32 Dose: 40 mg Documented By: Admin: 01/08/25 09:00 Dose: 40 mg Documented By: JACKELIN Pharmacy Consult (Vancomycin Pharmacy To Dose 1 Each Each) 1 each IV QDAY PRN PRN Reason: CONSULT Stop: 02/04/25 13:14 Pharmacy Consult (Vancomycin Pharmacy To Dose 1 Each Each) 1 each IV QDAY KIT Stop: 02/14/25 08:59 Pharmacy Consult (Vancomycin Pharmacy To Dose 1 Each Each) 1 each IV QDAY PRN PRN Reason: PROTOCOL Stop: 02/14/25 06:14 Phenytoin (Phenytoin 100 Mg/4 Ml Udc) Confirm Administered Dose 500 mg .ROUTE .STK-MED ONE Stop: 01/07/25 22:00 Last Admin: 01/08/25 00:02 Dose: Not Given Documented By: MAC Non-Admin Reason: Override Medication Phenytoin (Phenytoin 100 Mg/4 Ml Udc) Confirm Administered Dose 100 mg .ROUTE .STK-MED ONE Stop: 01/07/25 22:04 Last Admin: 01/08/25 00:03 Dose: Not Given Documented By: MAC Non-Admin Reason: Override Medication Sodium Chloride (Sodium Chloride Rt 10% 15 Ml Nebu) 5 ml INH X1 ONE Stop: 01/05/25 19:07 Last Admin: 01/06/25 03:21 Dose: Not Given Documented By: SHOBHA Non-Admin Reason: Other, see note Comments: sputum obtain without tx. via trach suction. Sodium Chloride (Sodium Chloride Rt 10% 15 Ml Nebu) 5 ml INH X1 ONE Stop: 01/06/25 08:51 Sodium Chloride (Sodium Chloride Rt 10% 15 Ml Nebu) 5 ml INH X1 ONE Stop: 01/15/25 08:16 Last Admin: 01/16/25 08:15 Dose: Not Given Documented By: ER Non-Admin Reason: d/c chart clean up as above Consultations Consultation(s) initiated? (list below): No Diagnosis Differential Diagnosis ED Complaint MDM: UTI, PNA, cellulitis, pyelonephritis Most likely diagnosis given after review of the tests above:: Septic shock Admission Indicated Admission indicated?: indicated Explain why admission is indicated or not indicated:: Patient is in septic shock with multiple possible sources including pressure ulcers, PNA, UTI, osteomyelitis, proctitis; needs ICU admission and pressor support. Admission Request Was there a request for admission?: Yes Admission Attestation Admission request attestation: Discussed case with [] from Hospitalist service regarding admission. Discussed patients ED course, exam findings, labs, and radiology results. The Hospitalist [[email or web address],declines] to accept the patient for admission. Disposition Plan Disposition Plan: Admit Medical Decision Making MDM Narrative MDM Narrative: The patient is a 39-year-old male with a history of anoxic brain injury, tracheostomy on mechanical ventilation, PEG tube, suprapubic catheter, right nephrostomy tube for obstructive uropathy, and bilateral upper extremity deep vein thrombosis (DVT), presenting from a [facility] ([facility]) with tachycardia, hypotension, and fever. Per the SNF, his symptoms began the previous night, and he was treated with acetaminophen for fever, but his condition worsened, prompting transfer to the emergency department (ED). The shirt hemmer noted dark-colored urine recently. The patient is non-verbal and unable to provide a history. A POLST form indicates the patient is a full code. On physical exam, the patient is well-developed and on mechanical ventilation. Stage IV pressure ulcers on lower back show hyperemia without purulence, and there is notable muscle wasting with dry skin of BLE. Diagnostic findings reveal chronic normocytic anemia, acute kidney injury (ELDON), transaminitis, urinary tract infection (UTI), bibasilar pneumonia, osteomyelitis of the right ischium, and possible proctitis. The patient is in septic shock with multiple potential sources, including pressure ulcers, pneumonia, UTI, osteomyelitis, and proctitis. Emergent ICU admission is required for hemodynamic support with vasopressors, broad-spectrum antibiotics, and further diagnostic and therapeutic interventions. Coordination with multidisciplinary teams, including wound care specialists, will be critical to optimize outcomes. Differential Diagnosis Differential Diagnosis: UTI, PNA, cellulitis, pyelonephritis Lab Data 01/16/25 05:25 01/16/25 05:25 Labs: Lab Results 01/05/25 01/05/25 01/05/25 Range/Units 12:39 12:46 16:24 WBC 32.8 H (3.8-10.6) Thou/mm3 RBC 3.67 L (4.50-5.90) Miln/mm3 Hgb 10.8 L (13.5-16.0) g/dL Hct 34.0 L (41.0-53.0) % MCV 93 (80-100) fL MCH 29.4 (25.0-35.0) pg MCHC 31.8 (31.0-37.0) g/dl RDW Std Deviation 48.1 H (35.1-43.9) fL Plt Count 430 (140-440) Thou/mm3 Neut % (Auto) 90 H (37-80) % Lymph % (Auto) 3 L (10-50) % Pender % (Auto) 6 (0-12) % Eos % (Auto) 0 (0-10) % Baso % (Auto) 0 (0-2.5) % Neut # (Auto) 29.6 H (1.8-7.7) Thou/mm3 Lymph # (Auto) 0.9 L (1.0-4.8) Thou/mm3 Pender # (Auto) 1.8 H (0.0-0.8) Thou/mm3 Eos # (Auto) 0.0 (0.0-0.5) Thou/mm3 Baso # (Auto) 0.1 (0.0-0.2) Thou/mm3 Immature Gran # (Auto) 0.29 H (0.00-0.00) Thou/mm3 Absolute Nucleated RBC 0.00 (0.00-0.00) Thou/mm3 Immature Gran % 1 H (0-0) % Neutrophils % (Manual) 79 H (50-70) % Monocytes % (Manual) 5 (2-9) % Nucleated RBC % 0 (0) /100 WBC Band Neutrophils 14 H (0-6) % Lymphocytes (Manual) 2 L (20-44) % Toxic Vacuolation Slight Sodium 141 (136-145) mMol/L Potassium 4.6 (3.4-5.1) mMol/L Chloride 104 (98-107) mMol/L Carbon Dioxide 20.9 (20.0-31.0) mMol/L Anion Gap 16 (7-16) BUN 95 H (9-23) mg/dL Creatinine 2.9 H (0.6-1.3) mg/dL Estim Creat Clear Calc 30.3 L (>60) mL/min eGFR 27 L (60 - ) See Note BUN/Creatinine Ratio 33 H (12-20) Ratio Glucose 267 H (74-106) mg/dL Estimated Ave Glu mg/dL 97 (80-131) mg/dL Hemoglobin A1c 5.0 (4.8-6.0) % Hgb Calculated Osmolality 319 H (275-295) Lactic Acid 2.7 H 1.5 (0.4-2.0) mMol/L Calcium 8.9 (8.3-10.6) mg/dL Corrected Calcium 9.0 (8.5-10.1) mg/dL Magnesium 3.0 H (1.6-2.6) mg/dL Total Bilirubin 0.6 (0.3-1.2) mg/dL AST 814 H* (0-34) U/L ALT 1105 H* (10-49) U/L Alkaline Phosphatase 413 H (46-116) U/L Total Protein 7.0 (5.7-8.2) gm/dL Albumin 3.9 (3.5-5.0) gm/dL Globulin 3.1 (2.3-3.5) gm/dL Albumin/Globulin Ratio 1.3 (1.2-2.2) Procalcitonin 191.21 H (0.0-0.49) ng/ml Ur Collection Type Catheter Urine Color Yellow (Lt Yel-Yel) Urine Clarity Hazy (Clear/Hazy) Urine pH 8.5 H (5.0-7.0) Ur Specific [place] 1.018 (1.001-1.035) Urine Protein 2+ A (Neg - Trace) Urine Glucose (UA) Negative (Negative) Urine Ketones Negative (Negative) Urine Blood Trace (Negative) Urine Nitrite Negative (Negative) Urine Bilirubin Negative (Negative) Urine Urobilinogen (Auto) 2.0 (0.0-1.0) mg/dL Ur Leukocyte Esterase Positive (Negative) Urine RBC 5 H (0-3) /hpf Urine WBC 52 H (0-5) /hpf Ur Squamous Epith Cells 1 (0-5) /hpf Amorphous Crystals Present A (Absent) Urine Bacteria 2+ A (None) Discharge Plan Plan Patient Disposition: Admit Acute Care w/in Hospital Patient condition on transfer: Stable Problem List Clinical Impression: Septic shock Patient/Caregiver Discharge Instructions Discharge Activity: resume usual activities MD Attestation MD Attestation The patient was seen by the PGY-2. I, the supervising physician also encountered and examined the patient, remaining available for consultation as needed. With the PGY-2, I participated in the analysis and supervised the managment, treatment plan, medical decision making and documentation. I agree with the plan and documentation.
[2025-01-05] MEDS: SODIUM CHLORIDE 0.9% 1000 ML 1,000 ML 999 ML IV ×2 (12:43→15:17)
--- NOTE | 2025-01-05 12:48 | PC.NURSE ---
PT BIB AMBULANCE FROM SNF FOR LETHARGIC, TACHY AND TEMP OF 102.7, PT WAS ACCOMPANIED BY MEDICAL STAFF CORINNE TO BEING ON VENT. PT IS FULL CODE, AND NON VERBAL.
[2025-01-05 12:51] LABS: Lactate (Lactic Acid) 2.7 mMol/L (0.4-2.0)
[2025-01-05 12:55] LABS: Basophils # (Auto) 0.1 Thou/mm3 (0.0-0.2); Basophils % (Auto) 0 % (0-2.5); Eosinophils % (Auto) 0 % (0-10); Hemoglobin 10.8 g/dL (13.5-16.0); Immature Granulocytes % (Auto) 1 % (0-0); Immature Granulocytes Auto 0.29 Thou/mm3 (0.00-0.00); Lymphocytes # (Auto) 0.9 Thou/mm3 (1.0-4.8); Lymphocytes % (Auto) 3 % (10-50); Mean Corpuscular HGB Conc 31.8 g/dl (31.0-37.0); Mean Corpuscular Hemoglobin 29.4 pg (25.0-35.0); Mean Corpuscular Volume 93 fL (80-100); Monocytes # (Auto) 1.8 Thou/mm3 (0.0-0.8); Monocytes % (Auto) 6 % (0-12); Neutrophils # (Auto) 29.6 Thou/mm3 (1.8-7.7); Neutrophils % (Auto) 90 % (37-80); Nucleated Red Blood Cell % 0 /100 WBC (0); Platelet Count 430 Thou/mm3 (140-440); RDW Standard Deviation 48.1 fL (35.1-43.9); Red Blood Count 3.67 Miln/mm3 (4.50-5.90); White Blood Count 32.8 Thou/mm3 (3.8-10.6)
[2025-01-05 13:18] LABS: Collection Type, Urine Catheter
[2025-01-05 13:41] LABS: Amorphous Crystals,Urine Present (Absent); Bacteria,Urine 2+; Bilirubin,Urine Negative (Negative); Blood,Urine Trace (Negative); Color,Urine Yellow (Lt Yel-Yel); Glucose, Urine Negative (Negative); Ketones,Urine Negative (Negative); Leukocyte Esterase,Urine Positive (Negative); Nitrite,Urine Negative (Negative); PH,Urine 8.5 (5.0-7.0); Protein,Urine 2+ (Neg - Trace); RBC,Urine 5 /hpf (0-3); Specific Gravity,Urine 1.018 (1.001-1.035); Squamous Epithelial Cell,Urine 1 /hpf (0-5); WBC,Urine 52 /hpf (0-5)
[2025-01-05 13:42] LABS: Clarity,Urine Hazy (Clear/Hazy)
[2025-01-05] MEDS: PIPER/TAZO 3.375 GM PREMIX 3.375 GM/50 ML BAG IV ×2 (13:47→21:18)
[2025-01-05 14:23] LABS: Albumin, Serum 3.9 gm/dL (3.5-5.0); Albumin/Globulin Ratio 1.3 (1.2-2.2); Alkaline Phosphatase 413 U/L (46-116); Anion Gap 16 (7-16); Aspartate Amino Transferase 814 U/L (0-34); BUN/Creatinine Ratio 33 Ratio (12-20); Bilirubin,Total 0.6 mg/dL (0.3-1.2); Blood Urea Nitrogen 95 mg/dL (9-23); Calcium 8.9 mg/dL (8.3-10.6); Carbon Dioxide 20.9 mMol/L (20.0-31.0); Chloride 104 mMol/L (98-107); Creatinine (Component) 2.9 mg/dL (0.6-1.3); Estimated Creatinine Clearance 30.3 mL/min (>60); Globulin 3.1 gm/dL (2.3-3.5); Glucose 267 mg/dL (74-106); Osmolality,Calculated 319 (275-295); Potassium 4.6 mMol/L (3.4-5.1); Sodium 141 mMol/L (136-145); eGFR 27 See Note
[2025-01-05] MEDS: VANCOMYCIN/NS 1 GM IVPB 200 ML IV (14:30)
[2025-01-05 14:34] LABS: Alanine Aminotransferase 1105 U/L (10-49)
--- NOTE | 2025-01-05 14:47 | XR_ITS ---
Examination: CT chest, without intravenous contrast. CT abdomen, without intravenous contrast. CT pelvis, without intravenous contrast. 2-D sagittal and coronal reconstructions. 3-D reconstructions. Date and time of exam:January 05, 2025 1539 hours INDICATIONS: Sepsis fever shortness of breath lethargy today CTDI vol (mgy) 13.3 DLP (MGycm)1021 Technique: Multiple CT images, 3.0 mm slice thickness, obtained chest, abdomen, pelvis, with the high-resolution 64 slice scanner.. Sagittal and coronal 2-D reconstructions are obtained. 3-D reconstructions Low dose protocols were performed. One or more of the following dose reduction techniques were used; automated exposure control, adjustment of the mA and/or KV according to patient size, use of iterative reconstruction technique. Findings: No thoracic aortic aneurysm dilatation Pulmonary artery segments are not enlarged Mild prominence left ventricle No paratracheal tracheobronchial or bronchopulmonary adenopathy Significant pneumonia both bases, differential would include aspiration pneumonia No visualized liver or splenic lesion Absent gallbladder No pancreatic or adrenal mass Gastrostomy tube satisfactory position Right percutaneous nephrostomy satisfactory position, no hydronephrosis Moderate renal parenchymal scar formation Normal appendix No abdominal or pelvic abscess Soft tissue nodules in the right lower lateral abdominal wall for instance axial image 237, the largest 22 mm Abundant stool throughout the colon especially prominent stool in the rectosigmoid Suprapubic cystostomy tube, prominent thickening of urinary bladder Severe osteopenia, with sclerotic coccygeal segments and soft tissue defect extending from the skin surface to the rectum Also large soft tissue defect right lateral buttock region extending to the right ischium with sclerosis and osteomyelitis involving the right ischium IMPRESSION: Significant bibasilar pneumonia No abdominal or pelvic abscess Recommend ultrasound soft tissue right lower lateral abdominal wall to assess soft tissue nodules in the subcutaneous tissue, the largest 22 mm Soft tissue defects as above Osteomyelitis right ischium Abundant stool throughout the colon large amounts of stool in the rectosigmoid with probable proctitis pattern
[2025-01-05 15:08] LABS: Procalcitonin 191.21 ng/ml (0.0-0.49)
[2025-01-05 15:35] LABS: Band Neutrophils (Manual) 14 % (0-6); Giant Platelets Few; Lymphocytes (Manual) 2 % (20-44); Monocytes (Manual) 5 % (2-9); Neutrophils (Manual) 79 % (50-70); Toxic Vacuolation Slight
[2025-01-05 15:50] LABS: Reflex Lactate? Y
--- NOTE | 2025-01-05 16:10 | PC.NURSE ---
BP 70'S/40'S, PROVIDER NOTIFIED.
[2025-01-05 16:32] LABS: Lactic Acid, 3 HR 1.5 mMol/L (0.4-2.0)
[2025-01-05] MEDS: Norepinephrine/D5W 8mg/250ml 8 MG/250 ML BAG 6.294 MG IV (16:35)
--- NOTE | 2025-01-05 17:28 | PC.NURSE ---
CALLED RT PT O2 AT 88%
--- NOTE | 2025-01-05 18:05 | ESHP_ITS ---
<Statement entered by Leydi Rojas MD - 01/06/25 14:44> TOTAL CC TIME: 45 MIN I saw and evaluated the patient. I reviewed the resident?s note and agree with findings and plan as documented in the resident?s note. Upon my evaluation, this patient had a high probability of imminent or life- threatening deterioration due to septic shock which required my direct attention, intervention, and personal management. This time is exclusive of time spent on procedures, which are documented separately if performed. Most likely due to a urinary source. Nephrostomy tube is draining well and it does not appear that there is an obstruction. We will continue with broad- spectrum antibiotics fluid resuscitation and track the lactic acid. Documentation for date of: 01/05/25 HPI History of Present Illness History of present illness: 39-year-old male with a past medical history of 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, status post tracheostomy, mechanical ventilation, PEG tube, suprapubic catheter, right nephrostomy tube due to obstructive uropathy, and bilateral upper extremity DVT, presented to [facility] from a snf due to tachycardia, hypotension, and fever. Per the staff, the patient was moved to their facility two weeks ago. Over the last 24 hours, the patient has had a fever ranging from 100.2?F to 102.7?F, along with a tachycardic event and low blood pressure. The snf administered Tylenol for the fever, but his condition appeared to worsen, prompting the decision to transfer him to the ED for evaluation. The heater room helper also reported that the patient's urine had become darker in color. The patient is nonverbal and cannot provide a history. The POLST form in the chart indicates that the patient is a full code. On presentation patient found to be hypotensive patient was hypotensive, tachycardic, tachypneic, labs revealed leukocytosis WBC of 32.8, anemia with hemoglobin of 10.8, hematocrit 34.0, BUN is 95, creatinine 2.9, EGFR of 27, glucose 267, magnesium of 3, AST 814, ALT 1105, ALP 415, procalcitonin 191.25. UA revealed UTI Chest x-ray showed left basilar pneumonia CT abdomen revealed significant bibasilar pneumonia, recommend ultrasound soft tissue right lower lateral abdominal wall to assess soft tissue nodules in the subcutaneous tissue, the largest 22 mm, soft tissue defect, osteomyelitis right ischium, proctitis pattern. In ED patient received 30 cc/kg fluids, however blood pressure was remained on the low side, at that point patient started on Levophed. Patient was admitted to ICU for shock most likely septic unspecified source requiring pressor support. Past medical history history of sudden cardiac arrest, pressure ulcer on sacral region, pressure ulcer on right buttock, intellectual disabilities, on MV, CKD with suprapubic catheter, obstructive uropathy nephrostomy tube placed, neuromuscular dysfunction of bladder, type 2 diabetes mellitus, essential hypertension, DVT of upper extremities, Meds phenytoin, Protonix, ipratropium/albuterol, multivitamin, Nephro-Autumn oral tablets, Tylenol, baclofen, metoclopramide, enoxaparin, Keppra, fludrocortisone, midodrine, Ativan, gabapentin, Allergies NKDA Family history unknown Social history lives in snf, point of contact his aunt, phone number [phone] Review of Systems Review of Systems ROS Unobtainable: unobtainable due to mental status Exam Vital Signs Temp Pulse Resp BP Pulse Ox O2 Del Method O2 Flow Rate 97.2 F 78 17 91/52 L 91 L Mechanical Ventilation 40 01/05/25 17:44 01/05/25 17:44 01/05/25 17:44 01/05/25 17:44 01/05/25 17:44 01/05/25 17:44 01/05/25 17:44 FiO2 30 01/05/25 17:44 Narrative Exam Gen: Well-developed male on MV. HEENT: NCAT, PERRLA, MMM, anicteric conjunctivae. Tracheostomy site appears clean with no discharge. CVS: normal S1 and S2. Regular tachycardia. No M/R/G. Resp: decreased BS B/L. No rhonchi, rales, crackles or wheezing. Abd: soft, non-tender, non-distended. BS+ in all 4 quadrants. PEG tube in place and appears clean., Nephrostomy tube on the right side noted, dressing clean, patient had suprapubic catheter, draining yellow urine MSK: No edema. BLE muscle wasting, skin is dry. 3 large pressure wounds appears stage IV, no pus drainage noted, hyperemia around wounds noted, dressing appears clean. Neuro: limited exam due to medical condition. Results: Labs 01/05/25 12:39 01/05/25 12:39 Labs: Short CBC 01/05/25 Range/Units 12:39 WBC 32.8 H (3.8-10.6) Thou/mm3 Hgb 10.8 L (13.5-16.0) g/dL Hct 34.0 L (41.0-53.0) % Plt Count 430 (140-440) Thou/mm3 BMP 01/05/25 12:39 Sodium 141 Potassium 4.6 Chloride 104 Carbon Dioxide 20.9 BUN 95 H Creatinine 2.9 H Glucose 267 H Calcium 8.9 Liver Function 01/05/25 Range/Units 12:39 Total Bilirubin 0.6 (0.3-1.2) mg/dL AST 814 H* (0-34) U/L ALT 1105 H* (10-49) U/L Alkaline Phosphatase 413 H (46-116) U/L Albumin 3.9 (3.5-5.0) gm/dL Urine 01/05/25 Range/Units 12:46 Urine Color Yellow (Lt Yel-Yel) Urine Clarity Hazy (Clear/Hazy) Urine pH 8.5 H (5.0-7.0) Ur Specific [place] 1.018 (1.001-1.035) Urine Protein 2+ A (Neg - Trace) Urine Glucose (UA) Negative (Negative) Quality Measures Quality Measures none Medications Home Medications and Allergies Allergies Allergy/AdvReac Type Severity Reaction Status Date / Time No Known Allergies Allergy Verified 01/05/25 12:48 Visit Medications Heparin Sodium (Porcine) (Heparin Sod Inj 5000 Unit/Ml Vial) 5,000 unit SC Q8HR KIT Stop: 01/19/25 21:59 Norepinephrine/Dextrose (Levophed In D5w 8mg/250ml) 8 mg in 250 mls @ 6.294 mls/hr IV .Q24H PRN; Protocol PRN Reason: PER PROTOCOL Stop: 02/04/25 16:09 Last Titration: 01/05/25 18:00 Dose: 0.14 mcg/kg/min, 17.622 mls/hr Piperacillin/Tazobactam/Dextrose (Zosyn) 3.375 gm in 50 mls @ 12.5 mls/hr IV Q8HR KIT Stop: 01/12/25 21:59 Ondansetron HCl (Ondansetron Inj 2 Mg/Ml Inj 2 Ml) 4 mg IV Q6H PRN; Protocol PRN Reason: NAUSEA OR VOMITING Stop: 02/04/25 17:08 Pantoprazole Sodium (Pantoprazole Inj 40 Mg Vial) 40 mg IVP QDAY [facility] Stop: 02/04/25 17:14 Pharmacy Consult (Vancomycin Pharmacy To Dose 1 Each Each) 1 each IV QDAY PRN PRN Reason: CONSULT Stop: 02/04/25 13:14 Discontinued Medications Sodium Chloride (Ns) 1,000 mls @ 999 mls/hr IV .Q1H1M ONE Stop: 01/05/25 12:48 Last Infusion: 01/05/25 13:48 Dose: Infused Piperacillin/Tazobactam/Dextrose (Zosyn) 3.375 gm in 50 mls @ 100 mls/hr IV X1 ONE Stop: 01/05/25 13:37 Last Infusion: 01/05/25 14:28 Dose: Infused Vancomycin/Sodium Chloride (Vancomycin/Ns 1 Gm Ivpb) 200 mls @ 120 mls/hr IV X1 ONE Stop: 01/05/25 15:09 Last Infusion: 01/05/25 16:26 Dose: Infused Sodium Chloride (Ns) 1,000 mls @ 999 mls/hr IV .Q1H1M ONE Stop: 01/05/25 15:47 Last Infusion: 01/05/25 16:25 Dose: Infused Assessment & Plan Plan 39-year-old male with a past medical history of 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, status post tracheostomy, mechanical ventilation, PEG tube, suprapubic catheter, right nephrostomy tube due to obstructive uropathy, and bilateral upper extremity DVT was admitted for septic shock requiring pressors [employer] Anoxic brain injury due to cardiac arrest, nonverbal CVS #Septic shock requiring pressor support Multifactorial with pneumonia and UA, multiple pressure ulcers, concern for sacral osteomyelitis Chest x-ray revealed left-sided pneumonia, Recommend ultrasound soft tissue right lower lateral abdominal wall to assess soft tissue nodules in the subcutaneous tissue, the largest 22 mm, Soft tissue defects Osteomyelitis right ischium WBC was elevated, lactic acid was 2.7, Pro-Chuck was severely elevated, patient was febrile In ED patient received 30 cc/kg fluids, will give another 5000 of bolus, -Continue vancomycin and Zosyn -Blood culture/urine culture pending -Continue support with Levophed and vasopressin, wean off as tolerates Respiratory #Chronic tracheostomy tube on mechanical ventilation #Left base pneumonia -Will follow-up with blood culture/sputum culture -Continue antibiotics GI #Patient has a PEG tube placed #GERD #Shock liver, severe transaminitis AST 814, ALT 1105, ALP 413, Patient received IVF -Will follow-up with daily CMP -PPI IV for prophylaxis -We will resume feeding once patient is more stable Renal Patient has a nephrostomy tube as well as suprapubic catheter CT abdomen/pelvis :right percutaneous nephrostomy tube in satisfactory position, no hydronephrosis, moderate renal parenchymal scar formation, suprapubic cystostomy tube, prominent thickening of urinary bladder #Obstructive uropathy #ELDON versus ELDON on CKD On presentation creatinine was 2.9, BUN 95, EGFR of 27 Patient received IV fluids -Continue close monitoring -Avoid nephrotoxic agent -Renally dose medication -Monitor MARILU's Endocrine DM type II Home medications insulin Hold PEG tube feeding until patient is more stable -Insulin sliding scale -Hypoglycemic protocols in place -Will follow-up with A1c Hematology #Leukocytosis secondary due to infection #Anemia of chronic disease -Treat underlying infection -Monitor H&H, transfuse if hemoglobin below 7 ID #Sepsis multifactorial #UTI #Pneumonia #Soft tissue nodules in the right lower lateral abdominal wall, largest 22 mm #Osteomyelitis of right ischium -Pending blood culture, urine culture, blood culture, sputum culture, wound culture -Will cover with Zosyn and vancomycin -ID will be consulted Disposition: ICU for septic shock requiring pressor DVT prophylaxis: Heparin GI prophylaxis: PPI Diet: N.p.o., has PEG tube placed, holding feeding Lines: PIV CODE STATUS:Full code Patient care was discussed with attending physician Dr. Bob Owusu MD PGY-2
--- NOTE | 2025-01-05 18:10 | PC.NURSE ---
ADMITTING PROVIDERS AT BEDSIDE FOR CENTRAL LINE PLACEMENT
--- NOTE | 2025-01-05 18:24 | PC.NURSE ---
PROTONIX LATE DUE TO PT HAVING 1 PERIPHERAL LINE AND LEVOPHED RUNNING NON COMPATIBLE. PER PROVIDER HOLD 2ND PERIPHERAL LINE CENTRAL LINE BEING PLACED
--- NOTE | 2025-01-05 18:27 | PC.NURSE ---
PER PROVIDER ORDERS ONLY ADMIN 500 ML OF LR IN 1000ML BAG
--- NOTE | 2025-01-05 18:30 | XR_ITS ---
Examination: AP chest single view TECHNIQUE: AP portable supine chest single view Examination time: January 05, 2025 1844 hours Comparison January 05, 2025 12:13 PM INDICATIONS: Post central line placement FINDINGS: Right internal jugular central line tip SVC satisfactory position Left base pneumonia The film is rotated LPO No pneumothorax Tracheostomy tube tip 7.6 cm above Layne IMPRESSION: Right internal jugular central line tip satisfactory position, no pneumothorax
--- NOTE | 2025-01-05 19:35 | PD.RESPROC ---
Procedures Procedure Date / Time 01/05/251934 Central Line Placement Right IJ: Indication(s): shock and poor, or inadequate peripheral venous access Informed consent obtained: procedure done urgently Time out done, and the following verified: correct patient, side and site, procedure, patient position and implants and/or equipment Patient placed on monitor/pulse ox: Yes Hand Hygiene: scrub Max Sterile Barrier Techniques used: cap, mask, sterile gown, sterile gloves and sterile full body drape Central line prep: Chlorhexidine scrub and sterile drapes applied Local anesthesia used: lidocaine 1% Ultrasound used for placement: Yes Sterile Technique if Ultrasound used, including sterile gel: yes Central line lumen inserted: triple Post procedure: sutured in place, good blood return, all ports aspirated, flushed, capped and sterile dressing applied Post procedure x-ray: tip of catheter in good position and no pneumothorax seen Patient tolerated procedure: well EBL(ml): 3 Complications: none Procedure comment: Procedure done urgently, tolerated by patient. Multiple attempts made to contact family to obtain consent, however unsuccessful. Consent form signed by two physicians.
[2025-01-05] MEDS: PANTOPRAZOLE INJ 40 MG VIAL IVP (19:49)
[2025-01-05 19:51] LABS: Base Excess -1 (-3-3); HCO3 24 mEq/L (20-26); Inspired Oxygen, FIO2 45 %; O2 Saturation 98 % (91-98); PCO2 40 mmHg (32.0-48.0); PO2 93 mmHg (83-108); pH, Arterial 7.39 (7.35-7.45)
[2025-01-05] MEDS: RINGERS LACTATED 500 ML 1,000 ML 999 ML IV (19:53)
[2025-01-05 19:57] LABS: Allen Test Performed/OK; Puncture Site Right Radial
[2025-01-05 20:24] LABS: Glucose Estimated Average 97 mg/dL (80-131)
--- NOTE | 2025-01-05 20:24 | PC.NURSE ---
REPORT GIVEN TO JAMAAL AT ICU.
[2025-01-05] MEDS: LIDOCAINE HCL 1% 20 ML VIAL 10 ML INFL (20:28)
[2025-01-05 21:10] LABS: Lactate (Lactic Acid) 1.4 mMol/L (0.4-2.0)
[2025-01-05] MEDS: HEPARIN SOD INJ 5000 UNIT/ML VIAL SC (21:18)
[2025-01-05 21:27] LABS: Basophils # (Auto) 0.1 Thou/mm3 (0.0-0.2); Basophils % (Auto) 0 % (0-2.5); Eosinophils # (Auto) 0.2 Thou/mm3 (0.0-0.5); Eosinophils % (Auto) 1 % (0-10); Hematocrit 27.2 % (41.0-53.0); Immature Granulocytes % (Auto) 1 % (0-0); Immature Granulocytes Auto 0.14 Thou/mm3 (0.00-0.00); Lymphocytes # (Auto) 1.1 Thou/mm3 (1.0-4.8); Lymphocytes % (Auto) 5 % (10-50); Mean Corpuscular Hemoglobin 29.6 pg (25.0-35.0); Mean Corpuscular Volume 93 fL (80-100); Monocytes # (Auto) 1.5 Thou/mm3 (0.0-0.8); Monocytes % (Auto) 6 % (0-12); Neutrophils # (Auto) 20.8 Thou/mm3 (1.8-7.7); Neutrophils % (Auto) 87 % (37-80); Nucleated Red Blood Cell % 0 /100 WBC (0); Platelet Count 346 Thou/mm3 (140-440); RDW Standard Deviation 47.6 fL (35.1-43.9); Red Blood Count 2.94 Miln/mm3 (4.50-5.90); White Blood Count 23.9 Thou/mm3 (3.8-10.6)
[2025-01-05 21:40] LABS: Hemoglobin 8.7 g/dL (13.5-16.0)
[2025-01-05 22:11] LABS: Alanine Aminotransferase 718 U/L (10-49); Albumin, Serum 3.2 gm/dL (3.5-5.0); Albumin/Globulin Ratio 1.1 (1.2-2.2); Alkaline Phosphatase 298 U/L (46-116); Anion Gap 13 (7-16); Aspartate Amino Transferase 318 U/L (0-34); BUN/Creatinine Ratio 32 Ratio (12-20); Bilirubin,Total 0.5 mg/dL (0.3-1.2); Blood Urea Nitrogen 79 mg/dL (9-23); Calcium 7.3 mg/dL (8.3-10.6); Calcium (Corrected) 7.9 mg/dL (8.5-10.1); Carbon Dioxide 21.4 mMol/L (20.0-31.0); Chloride 111 mMol/L (98-107); Creatinine (Component) 2.5 mg/dL (0.6-1.3); Estimated Creatinine Clearance 35.1 mL/min (>60); Globulin 2.9 gm/dL (2.3-3.5); Glucose 188 mg/dL (74-106); Osmolality,Calculated 317 (275-295); Potassium 3.2 mMol/L (3.4-5.1); Sodium 145 mMol/L (136-145); Total Protein 6.1 gm/dL (5.7-8.2); eGFR 32 See Note
[2025-01-06] VITALS (108 sets, daily range): BP systolic 83–124; BP diastolic 49–87; PULSE 68–103; RESP 8–21; TEMP 35.7–37; O2SAT 86–100; BMI 20.7
--- NOTE | 2025-01-06 03:16 | PC.RT ---
around 2044 RN called spo2 dropping in the 80s, RT needed stat elsewhere, RN increased fio2 to 45% per nurse spo2 improved, at 20:54 RT went to assess pt, spo2 96% on fio2 of 45% no changes made.
--- NOTE | 2025-01-06 03:22 | PC.RT ---
pt tranfered with nurse, RT and Konrad MARY no complications pt tolerated well arrived at 20:09, repost given to RT georges, pt on current settings ACVC 450, RR16, fio2 45%, peep of 5 no changes made pt tolerating settings DR. Konrad akers with settings.
--- NOTE | 2025-01-06 05:00 | XR_ITS ---
Examination: AP chest single view TECHNIQUE: AP portable semiupright chest single view Exam date and time: January 06, 2025, 0530 hours Comparison January 05, 2025 INDICATIONS: Left base pneumonia on chest film January 05, 2025 FINDINGS: Bilateral perihilar left basilar pneumonia Normal heart size. Tracheostomy tube tip 7.5 cm above dudley. Right internal jugular central line tip right atrium IMPRESSION: Bilateral perihilar left basilar pneumonia
[2025-01-06 05:02] LABS: Lactate (Lactic Acid) 0.8 mMol/L (0.4-2.0)
[2025-01-06 05:29] LABS: Basophils # (Auto) 0.1 Thou/mm3 (0.0-0.2); Basophils % (Auto) 0 % (0-2.5); Eosinophils # (Auto) 0.9 Thou/mm3 (0.0-0.5); Eosinophils % (Auto) 4 % (0-10); Hematocrit 28.1 % (41.0-53.0); Hemoglobin 9.1 g/dL (13.5-16.0); Immature Granulocytes % (Auto) 0 % (0-0); Immature Granulocytes Auto 0.08 Thou/mm3 (0.00-0.00); Lymphocytes # (Auto) 1.2 Thou/mm3 (1.0-4.8); Lymphocytes % (Auto) 6 % (10-50); Mean Corpuscular HGB Conc 32.4 g/dl (31.0-37.0); Mean Corpuscular Hemoglobin 29.7 pg (25.0-35.0); Mean Corpuscular Volume 92 fL (80-100); Monocytes # (Auto) 1.2 Thou/mm3 (0.0-0.8); Monocytes % (Auto) 6 % (0-12); Neutrophils # (Auto) 17.6 Thou/mm3 (1.8-7.7); Neutrophils % (Auto) 83 % (37-80); Nucleated Red Blood Cell % 0 /100 WBC (0); Platelet Count 355 Thou/mm3 (140-440); RDW Standard Deviation 46.8 fL (35.1-43.9); Red Blood Count 3.06 Miln/mm3 (4.50-5.90); White Blood Count 21.1 Thou/mm3 (3.8-10.6)
[2025-01-06 05:32] LABS: INR 1.1 (0.9-1.3); Partial Thromboplastin Time 25.9 Seconds (22.0-36.0); Prothrombin Time 11.6 Seconds (9.0-12.2)
[2025-01-06] MEDS: PIPER/TAZO 3.375 GM PREMIX 3.375 GM/50 ML BAG IV ×3 (06:09→21:27)
[2025-01-06] MEDS: HEPARIN SOD INJ 5000 UNIT/ML VIAL SC ×3 (06:09→21:27)
[2025-01-06] MEDS: Norepinephrine/D5W 8mg/250ml 8 MG/250 ML BAG 10.07 MG IV (08:19)
[2025-01-06 08:40] LABS: Alanine Aminotransferase 651 U/L (10-49); Albumin, Serum 3.4 gm/dL (3.5-5.0); Albumin/Globulin Ratio 1.1 (1.2-2.2); Alkaline Phosphatase 287 U/L (46-116); Anion Gap 12 (7-16); Aspartate Amino Transferase 195 U/L (0-34); BUN/Creatinine Ratio 30 Ratio (12-20); Bilirubin,Total 0.3 mg/dL (0.3-1.2); Blood Urea Nitrogen 72 mg/dL (9-23); Calcium 8.1 mg/dL (8.3-10.6); Calcium (Corrected) 8.6 mg/dL (8.5-10.1); Carbon Dioxide 22.4 mMol/L (20.0-31.0); Cardiac Risk Estimate 5.1 RATIO (4.0-6.7); Chloride 115 mMol/L (98-107); Cholesterol 128 mg/dL (132-200); Creatinine (Component) 2.4 mg/dL (0.6-1.3); Estimated Creatinine Clearance 33.5 mL/min (>60); Glucose 114 mg/dL (74-106); HDL Cholesterol 25 mg/dL (40-60); LDL Cholesterol,Calculated 73 mg/dL (0-130); Magnesium 2.7 mg/dL (1.6-2.6); Osmolality,Calculated 318 (275-295); Phosphorous 4.8 mg/dL (2.4-5.1); Potassium 3.4 mMol/L (3.4-5.1); Sodium 149 mMol/L (136-145); Total Protein 6.4 gm/dL (5.7-8.2); Triglycerides 149 mg/dL (30-150); eGFR 34 See Note
--- NOTE | 2025-01-06 08:47 | CHAP ---
Patient had eyes open and blinking, but was not responsive to my voice. I gave some words of comfort and prayer.
[2025-01-06] MEDS: POTASSIUM CHL 10 mEq IVPB 10 MEQ/100 ML BAG 100 MEQ IV ×4 (08:52→12:35)
[2025-01-06] MEDS: PANTOPRAZOLE INJ 40 MG VIAL IVP (08:54)
--- NOTE | 2025-01-06 09:59 | ESPR_ITS ---
<Statement entered by Leydi Rojas MD - 01/07/25 13:53> TOTAL TIME: 45MINUTES ON DIRECT MEDICAL CARE, MANAGEMENT - COORDINATION AND COUNSELING > 50% OF TOTAL TIME I saw and evaluated the patient. I reviewed the resident?s note and agree with findings and plan as documented in the resident?s note. Improving, follow-up final culture results and continue broad-spectrum antibiotics. Remains off pressors with normalized lactic acid. Procalcitonin severely elevated therefore continue close monitoring to confirm progressive improvement will be required. Resume patient's home tube feeds and free water. At this time stable to transfer to telemetry floor Documentation for date of: 01/06/25 Subjective Subjective Interval history: 39-year-old male with a past medical history of 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, status post tracheostomy, mechanical ventilation, PEG tube, suprapubic catheter, right nephrostomy tube due to obstructive uropathy, and bilateral upper extremity DVT, presented to [facility] from a long-term due to tachycardia, hypotension, and fever. Per the staff, the patient was moved to their facility two weeks ago. Over the last 24 hours, the patient has had a fever ranging from 100.2?F to 102.7?F, along with a tachycardic event and low blood pressure. The long-term administered Tylenol for the fever, but his condition appeared to worsen, prompting the decision to transfer him to the ED for evaluation. The resolution manager also reported that the patient's urine had become darker in color. The patient is nonverbal and cannot provide a history. The POLST form in the chart indicates that the patient is a full code. On presentation patient found to be hypotensive patient was hypotensive, tachycardic, tachypneic, labs revealed leukocytosis WBC of 32.8, anemia with hemoglobin of 10.8, hematocrit 34.0, BUN is 95, creatinine 2.9, EGFR of 27, glucose 267, magnesium of 3, AST 814, ALT 1105, ALP 415, procalcitonin 191.25. UA revealed UTI Chest x-ray showed left basilar pneumonia CT abdomen revealed significant bibasilar pneumonia, recommend ultrasound soft tissue right lower lateral abdominal wall to assess soft tissue nodules in the subcutaneous tissue, the largest 22 mm, soft tissue defect, osteomyelitis right ischium, proctitis pattern. In ED patient received 30 cc/kg fluids, however blood pressure was remained on the low side, at that point patient started on Levophed. Patient was admitted to ICU for shock most likely septic unspecified source requiring pressor support 01/06/2025. Patient was seen and examined at bedside. Overnight patient had a temperature of 96.6, bilateral help was placed, and patient had a good urine output, overnight patient was on Levophed which was successfully down trended, patient currently is off of pressors, blood pressure is maintaining, MAP above 65. Patient will be started tube feeding along with free water flushes. Culture still pending, however 10/15 bottle revealed positive GPC. We will follow-up with the culture from trach tube, patient started on midodrine 10 3 times daily intermittent blood culture, will follow-up with hemodynamics. Patient is off of the pressor, maps maintained above 65, patient is stable to be downgraded to floors. Exam Vital Signs Temp Pulse Resp BP Pulse Ox O2 Del Method O2 Flow Rate 98.6 F 92 16 118/66 98 Mechanical Ventilation 40 01/06/25 08:00 01/06/25 08:19 01/06/25 06:30 01/06/25 08:19 01/06/25 08:00 01/06/25 08:00 01/05/25 17:44 FiO2 45 01/06/25 08:00 Narrative Exam Gen: Well-developed male on MV. HEENT: NCAT, PERRLA, MMM, anicteric conjunctivae. Tracheostomy site appears clean with no discharge. CVS: normal S1 and S2. Regular tachycardia. No M/R/G. Resp: decreased BS B/L. No rhonchi, rales, crackles or wheezing. Abd: soft, non-tender, non-distended. BS+ in all 4 quadrants. PEG tube in place and appears clean., Nephrostomy tube on the right side noted, dressing clean, patient had suprapubic catheter, draining yellow urine MSK: No edema. BLE muscle wasting, skin is dry. 3 large pressure wounds appears stage IV, hyperemia around wounds noted, dressing appears clean. Neuro: limited exam due to medical condition. Objective Labs 01/06/25 04:47 01/07/25 04:53 Labs: Laboratory Results - last 24 hr 01/05/25 01/05/25 01/05/25 12:39 12:46 16:24 WBC 32.8 H RBC 3.67 L Hgb 10.8 L Hct 34.0 L MCV 93 MCH 29.4 MCHC 31.8 RDW Std Deviation 48.1 H Plt Count 430 Neut % (Auto) 90 H Lymph % (Auto) 3 L [place] % (Auto) 6 Eos % (Auto) 0 Baso % (Auto) 0 Neut # (Auto) 29.6 H Lymph # (Auto) 0.9 L [place] # (Auto) 1.8 H Eos # (Auto) 0.0 Baso # (Auto) 0.1 Immature Gran # (Auto) 0.29 H Absolute Nucleated RBC 0.00 Immature Gran % 1 H Neutrophils % (Manual) 79 H Monocytes % (Manual) 5 Nucleated RBC % 0 Band Neutrophils 14 H Lymphocytes (Manual) 2 L Toxic Vacuolation Slight PT INR APTT Puncture Site ABG pH ABG pCO2 ABG pO2 ABG HCO3 ABG O2 Saturation ABG Base Excess FiO2 Sodium 141 Potassium 4.6 Chloride 104 Carbon Dioxide 20.9 Anion Gap 16 BUN 95 H Creatinine 2.9 H Estim Creat Clear Calc 30.3 L eGFR 27 L BUN/Creatinine Ratio 33 H Glucose [address] Glu mg/dL 97 Hemoglobin A1c 5.0 Calculated Osmolality 319 H Lactic Acid 2.7 H 1.5 Calcium 8.9 Corrected Calcium 9.0 Phosphorus Magnesium 3.0 H Total Bilirubin 0.6 AST 814 H* ALT 1105 H* Alkaline Phosphatase 413 H Total Protein 7.0 Albumin 3.9 Globulin 3.1 Albumin/Globulin Ratio 1.3 Triglycerides Cholesterol LDL Cholesterol, Calc HDL Cholesterol Cholesterol/HDL Ratio Procalcitonin 191.21 H Ur Collection Type Catheter Urine Color Yellow Urine Clarity Hazy Urine pH 8.5 H Ur Specific [place] 1.018 Urine Protein 2+ A Urine Glucose (UA) Negative Urine Ketones Negative Urine Blood Trace Urine Nitrite Negative Urine Bilirubin Negative Urine Urobilinogen (Auto) 2.0 Ur Leukocyte Esterase Positive Urine RBC 5 H Urine WBC 52 H Ur Squamous Epith Cells 1 Amorphous Crystals Present A Urine Bacteria 2+ A 01/05/25 01/05/25 01/06/25 19:43 20:55 04:47 WBC 23.9 H D 21.1 H RBC 2.94 L 3.06 L Hgb 8.7 L D 9.1 L Hct 27.2 L 28.1 L MCV 93 92 MCH 29.6 29.7 MCHC 32.0 32.4 RDW Std Deviation 47.6 H 46.8 H Plt Count 346 D 355 Neut % (Auto) 87 H 83 H Lymph % (Auto) 5 L 6 L [place] % (Auto) 6 6 Eos % (Auto) 1 4 Baso % (Auto) 0 0 Neut # (Auto) 20.8 H 17.6 H Lymph # (Auto) 1.1 1.2 [place] # (Auto) 1.5 H 1.2 H Eos # (Auto) 0.2 0.9 H Baso # (Auto) 0.1 0.1 Immature Gran # (Auto) 0.14 H 0.08 H Absolute Nucleated RBC 0.00 0.00 Immature Gran % 1 H 0 Neutrophils % (Manual) Monocytes % (Manual) Nucleated RBC % 0 0 Band Neutrophils Lymphocytes (Manual) Toxic Vacuolation PT 11.6 INR 1.1 APTT 25.9 Puncture Site Right Radial ABG pH 7.39 ABG pCO2 40 ABG pO2 93 ABG HCO3 24 ABG O2 Saturation 98 ABG Base Excess -1 FiO2 45 Sodium 145 149 H Potassium 3.2 L D 3.4 Chloride 111 H 115 H Carbon Dioxide 21.4 22.4 Anion Gap 13 12 BUN 79 H 72 H Creatinine 2.5 H 2.4 H Estim Creat Clear Calc 35.1 L 33.5 L eGFR 32 L 34 L BUN/Creatinine Ratio 32 H 30 H Glucose 188 H D [address] Glu mg/dL Hemoglobin A1c Calculated Osmolality 317 H 318 H Lactic Acid 1.4 0.8 Calcium 7.3 L D 8.1 L Corrected Calcium 7.9 L 8.6 Phosphorus 4.8 Magnesium 2.7 H Total Bilirubin 0.5 0.3 AST 318 H 195 H ALT 718 H* 651 H* Alkaline Phosphatase 298 H D 287 H Total Protein 6.1 6.4 Albumin 3.2 L D 3.4 L Globulin 2.9 3.0 Albumin/Globulin Ratio 1.1 L 1.1 L Triglycerides 149 Cholesterol 128 L LDL Cholesterol, Calc 73 HDL Cholesterol 25 L Cholesterol/HDL Ratio 5.1 Procalcitonin Ur Collection Type Urine Color Urine Clarity Urine pH Ur Specific [place] Urine Protein Urine Glucose (UA) Urine Ketones Urine Blood Urine Nitrite Urine Bilirubin Urine Urobilinogen (Auto) Ur Leukocyte Esterase Urine RBC Urine WBC Ur Squamous Epith Cells Amorphous Crystals Urine Bacteria ABG Interpretation ABG results: 01/05/25 19:43 ABG pH 7.39 ABG pCO2 40 ABG pO2 93 ABG HCO3 24 ABG O2 Saturation 98 ABG Base Excess -1 Quality Measures Quality Measures none Assessment & Plan Assessment Current Active Medications: Generic Name Dose Route Start Last Admin Trade Name Freq PRN Reason Stop Dose Admin Dextrose 25 ml 01/05/25 19:11 Dextrose 50%-Water Inj 50 Ml Syringe IV 02/04/25 19:10 Q15MIN PRN BG 50-70 responsive npo pt Dextrose 50 ml 01/05/25 19:11 Dextrose 50%-Water Inj 50 Ml Syringe IV 02/04/25 19:10 Q15MIN PRN BG <50 OR BG <70 & pt unresponsive Glucagon 1 mg 01/05/25 19:11 Glucagon Inj 1 Mg Vial IM Q15MIN PRN BG <70, and no IV access Heparin Sodium (Porcine) 5,000 unit 01/05/25 22:00 01/06/25 06:09 Heparin Sod Inj 5000 Unit/Ml Vial SC 01/19/25 21:59 5,000 unit Q8HR KIT Administration Norepinephrine/Dextrose 8 mg in 250 mls @ 6.294 mls/hr 01/05/25 16:10 01/06/25 08:38 Levophed In D5w 8mg/250ml IV 02/04/25 16:09 0.06 mcg/kg/min .Q24H PRN 7.552 mls/hr PER PROTOCOL Titration Protocol 0.05 MCG/KG/MIN Piperacillin/Tazobactam/Dextrose 3.375 gm in 50 mls @ 12.5 mls/hr 01/05/25 22:00 01/06/25 06:09 Zosyn IV 01/12/25 21:59 12.5 mls/hr Q8HR KIT Administration Vasopressin/Sodium Chloride 20 unit in 100 mls @ 9 mls/hr 01/05/25 18:50 Vasostrict/Ns Ivpb IV 02/04/25 18:49 .Q11H7M PRN PER PROTOCOL Protocol 0.03 UNIT/MIN Potassium Chloride 10 meq in 100 mls @ 100 mls/hr 01/06/25 07:28 01/06/25 08:52 Kcl Ivpb IV 01/06/25 11:27 100 mls/hr Q1H KIT Administration Vancomycin/Sodium Chloride 200 mls @ 120 mls/hr 01/06/25 10:00 Vancomycin/Ns 1 Gm Ivpb IV 01/13/25 09:59 Q24H [facility] Insulin Human Lispro 0 unit 01/06/25 06:00 01/06/25 05:59 Insulin Lispro (Admelog) 1 Unit/0.01 Ml Unit SC 02/05/25 05:59 Not Given Q6HR [facility] Protocol Midodrine 10 mg 01/06/25 09:00 Midodrine 5 Mg Tablet PO 02/05/25 08:59 TID [facility] Ondansetron HCl 4 mg 01/05/25 17:09 Ondansetron Inj 2 Mg/Ml Inj 2 Ml IV 02/04/25 17:08 Q6H PRN NAUSEA OR VOMITING Protocol Pantoprazole Sodium 40 mg 01/05/25 17:15 01/06/25 08:54 Pantoprazole Inj 40 Mg Vial IVP 02/04/25 17:14 40 mg QDAY KIT Administration Pharmacy Consult 1 each 01/05/25 13:15 Vancomycin Pharmacy To Dose 1 Each Each IV 02/04/25 13:14 QDAY PRN CONSULT Plan 39-year-old male with a past medical history of 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, status post tracheostomy, mechanical ventilation, PEG tube, suprapubic catheter, right nephrostomy tube due to obstructive uropathy, and bilateral upper extremity DVT was admitted for septic shock requiring 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 #Seizure #Anoxic brain injury due to cardiac arrest, nonverbal CVS #Septic shock requiring pressor support-resolved Multifactorial with pneumonia and UA, multiple pressure ulcers, sacral osteomyelitis Chest x-ray revealed left-sided pneumonia, Recommend ultrasound soft tissue right lower lateral abdominal wall to assess soft tissue nodules in the subcutaneous tissue, the largest 22 mm, Soft tissue defects Osteomyelitis right ischium WBC was elevated, lactic acid was 2.7, Pro-Chuck was severely elevated, patient was febrile In ED patient received 30 cc/kg fluids, will give another 5000 of bolus, 01/06/2025 leukocytosis downtrending, culture still pending, 10/15 blood culture revealed GPC, patient off of pressors -Continue vancomycin and Zosyn -Blood culture/urine culture final pending -Midodrine 10 3 times daily Respiratory #Chronic tracheostomy tube on mechanical ventilation #Left base pneumonia -Will follow-up with blood culture/sputum culture -Continue antibiotics GI #Patient has a PEG tube placed #GERD #Shock liver, severe transaminitis AST 814, ALT 1105, ALP 413, Patient received IVF 01/06/2025: We will restart PEG tube, patient will be given to 250 bolus for PEG tube, and 50 cc/h free water flushes. Transaminitis improving -Will follow-up with daily CMP -PPI IV for prophylaxis Renal Patient has a nephrostomy tube as well as suprapubic catheter CT abdomen/pelvis :right percutaneous nephrostomy tube in satisfactory position, no hydronephrosis, moderate renal parenchymal scar formation, suprapubic cystostomy tube, prominent thickening of urinary bladder #Obstructive uropathy #ELDON versus ELDON on CKD On presentation creatinine was 2.9, BUN 95, EGFR of 27 Patient received IV fluids 01/06/25 renal function slightly improved, patient is making good urine output. -Continue close monitoring -Avoid nephrotoxic agent -Renally dose medication -Monitor MARILU's Endocrine DM type II Home medications insulin -Insulin sliding scale -Hypoglycemic protocols in place -A1c within normal limit -Restarted home tube feeding Hematology #Leukocytosis secondary due to infection-improving #Anemia of chronic disease -Treat underlying infection -Monitor H&H, transfuse if hemoglobin below 7 ID #Sepsis multifactorial #UTI #Pneumonia #Soft tissue nodules in the right lower lateral abdominal wall, largest 22 mm #Osteomyelitis of right ischium -Pending blood culture, urine culture, blood culture, sputum culture, wound culture -Will cover with Zosyn and vancomycin -ID will be consulted Disposition: ICU for septic shock requiring pressor DVT prophylaxis: Heparin GI prophylaxis: PPI Diet: N.p.o., has PEG tube placed, holding feeding Lines: PIV CODE STATUS:Full code Patient care was discussed with attending physician Dr. Bob Owusu MD PGY-2
--- NOTE | 2025-01-06 10:16 | ESPR_ITS ---
Subjective Subjective Interval history: gnr in urine. bc with gpc in 1/2 bc done 01/05. ID and S pending. may still be a contaminant. imaging findings for du noted.its going to be hard to not treat the pos sputum as nearly all with a trach have a pos sputum. chest imaging not that striking to me. but reports are more striking Exam Vital Signs Temp Pulse Resp BP Pulse Ox O2 Del Method O2 Flow Rate 98.6 F 92 16 118/66 98 Mechanical Ventilation 40 01/06/25 08:00 01/06/25 08:19 01/06/25 06:30 01/06/25 08:19 01/06/25 08:00 01/06/25 08:00 01/05/25 17:44 FiO2 45 01/06/25 08:00 Narrative Exam trach and peg noted. cx pending. rx is empirical. trach will likely be pos, so keep that in mind we do not know his baseline O2 need. Objective - Internal Medicine Labs 01/06/25 04:47 01/06/25 04:47 Labs: Laboratory Results - last 24 hr 01/05/25 01/05/25 01/05/25 12:39 12:46 16:24 WBC 32.8 H RBC 3.67 L Hgb 10.8 L Hct 34.0 L MCV 93 MCH 29.4 MCHC 31.8 RDW Std Deviation 48.1 H Plt Count 430 Neut % (Auto) 90 H Lymph % (Auto) 3 L [place] % (Auto) 6 Eos % (Auto) 0 Baso % (Auto) 0 Neut # (Auto) 29.6 H Lymph # (Auto) 0.9 L [place] # (Auto) 1.8 H Eos # (Auto) 0.0 Baso # (Auto) 0.1 Immature Gran # (Auto) 0.29 H Absolute Nucleated RBC 0.00 Immature Gran % 1 H Neutrophils % (Manual) 79 H Monocytes % (Manual) 5 Nucleated RBC % 0 Band Neutrophils 14 H Lymphocytes (Manual) 2 L Toxic Vacuolation Slight PT INR APTT Puncture Site ABG pH ABG pCO2 ABG pO2 ABG HCO3 ABG O2 Saturation ABG Base Excess FiO2 Sodium 141 Potassium 4.6 Chloride 104 Carbon Dioxide 20.9 Anion Gap 16 BUN 95 H Creatinine 2.9 H Estim Creat Clear Calc 30.3 L eGFR 27 L BUN/Creatinine Ratio 33 H Glucose [address] Glu mg/dL 97 Hemoglobin A1c 5.0 Calculated Osmolality 319 H Lactic Acid 2.7 H 1.5 Calcium 8.9 Corrected Calcium 9.0 Phosphorus Magnesium 3.0 H Total Bilirubin 0.6 AST 814 H* ALT 1105 H* Alkaline Phosphatase 413 H Total Protein 7.0 Albumin 3.9 Globulin 3.1 Albumin/Globulin Ratio 1.3 Triglycerides Cholesterol LDL Cholesterol, Calc HDL Cholesterol Cholesterol/HDL Ratio Procalcitonin 191.21 H Ur Collection Type Catheter Urine Color Yellow Urine Clarity Hazy Urine pH 8.5 H Ur Specific [place] 1.018 Urine Protein 2+ A Urine Glucose (UA) Negative Urine Ketones Negative Urine Blood Trace Urine Nitrite Negative Urine Bilirubin Negative Urine Urobilinogen (Auto) 2.0 Ur Leukocyte Esterase Positive Urine RBC 5 H Urine WBC 52 H Ur Squamous Epith Cells 1 Amorphous Crystals Present A Urine Bacteria 2+ A 01/05/25 01/05/25 01/06/25 19:43 20:55 04:47 WBC 23.9 H D 21.1 H RBC 2.94 L 3.06 L Hgb 8.7 L D 9.1 L Hct 27.2 L 28.1 L MCV 93 92 MCH 29.6 29.7 MCHC 32.0 32.4 RDW Std Deviation 47.6 H 46.8 H Plt Count 346 D 355 Neut % (Auto) 87 H 83 H Lymph % (Auto) 5 L 6 L [place] % (Auto) 6 6 Eos % (Auto) 1 4 Baso % (Auto) 0 0 Neut # (Auto) 20.8 H 17.6 H Lymph # (Auto) 1.1 1.2 [place] # (Auto) 1.5 H 1.2 H Eos # (Auto) 0.2 0.9 H Baso # (Auto) 0.1 0.1 Immature Gran # (Auto) 0.14 H 0.08 H Absolute Nucleated RBC 0.00 0.00 Immature Gran % 1 H 0 Neutrophils % (Manual) Monocytes % (Manual) Nucleated RBC % 0 0 Band Neutrophils Lymphocytes (Manual) Toxic Vacuolation PT 11.6 INR 1.1 APTT 25.9 Puncture Site Right Radial ABG pH 7.39 ABG pCO2 40 ABG pO2 93 ABG HCO3 24 ABG O2 Saturation 98 ABG Base Excess -1 FiO2 45 Sodium 145 149 H Potassium 3.2 L D 3.4 Chloride 111 H 115 H Carbon Dioxide 21.4 22.4 Anion Gap 13 12 BUN 79 H 72 H Creatinine 2.5 H 2.4 H Estim Creat Clear Calc 35.1 L 33.5 L eGFR 32 L 34 L BUN/Creatinine Ratio 32 H 30 H Glucose 188 H D [address] Glu mg/dL Hemoglobin A1c Calculated Osmolality 317 H 318 H Lactic Acid 1.4 0.8 Calcium 7.3 L D 8.1 L Corrected Calcium 7.9 L 8.6 Phosphorus 4.8 Magnesium 2.7 H Total Bilirubin 0.5 0.3 AST 318 H 195 H ALT 718 H* 651 H* Alkaline Phosphatase 298 H D 287 H Total Protein 6.1 6.4 Albumin 3.2 L D 3.4 L Globulin 2.9 3.0 Albumin/Globulin Ratio 1.1 L 1.1 L Triglycerides 149 Cholesterol 128 L LDL Cholesterol, Calc 73 HDL Cholesterol 25 L Cholesterol/HDL Ratio 5.1 Procalcitonin Ur Collection Type Urine Color Urine Clarity Urine pH Ur Specific [place] Urine Protein Urine Glucose (UA) Urine Ketones Urine Blood Urine Nitrite Urine Bilirubin Urine Urobilinogen (Auto) Ur Leukocyte Esterase Urine RBC Urine WBC Ur Squamous Epith Cells Amorphous Crystals Urine Bacteria ABG Interpretation ABG results: 01/05/25 19:43 ABG pH 7.39 ABG pCO2 40 ABG pO2 93 ABG HCO3 24 ABG O2 Saturation 98 ABG Base Excess -1 Assessment & Plan A&P Narrative bacteremia and bacteriuria ua not striking but not normal du with apparent osteo. du's will not improve unless pressure avoidance is imposed. abx only kill germs, they do not heal wounds. anoxic brain injury obstructive uropathy. full code with other health problems at 39 yoa. with anoxic brain injury no objection if he is made hospice empiric abx rx ok for now. will see again saturday likely to have some micro by then to guide rx you can start the pressure avoidance strategies for the du if family makes him hospic. that is ok with me. try to get old records on him if you can. Time Spent With Patient Time: Total time spent is greater than 50% in coordination of care (as documented) at patient's floor/unit and/or counseling patient:
[2025-01-06] MEDS: MIDODRINE 5 MG TABLET 10 MG PO ×3 (11:05→21:26)
[2025-01-06] MEDS: VANCOMYCIN/NS 1 GM IVPB 200 ML IV (11:05)
--- NOTE | 2025-01-06 11:11 | PC.DIETICIAN ---
Nutrition prescription TwoCal HN at 30 ml/hr via PEG tube by pump. Advance 10 ml every 8 hrs to goal rate of 50 ml/hr x 20 hrs. If no IV fluids, water flushes of 50 ml/hr (or per MD). -Hold TF for one hour before and after phenytoin administration-
[2025-01-06] MEDS: Silvasorb Gel 45 ML TUBE TOP (12:04)
--- NOTE | 2025-01-06 12:56 | ESCONSULT_ITS ---
RE: KETTY BATES : 1985 DATE OF CONSULTATION: 01/06/2025 REFERRING PHYSICIAN: Dr. Rojas. icu doc. REASON FOR CONSULTATION: Chronic respiratory failure, acute kidney injury, and positive blood cultures with positive urine culture in a complicated 39-year-old. HISTORY OF PRESENT ILLNESS: The patient is an unfortunate 39-year-old man, according to nursing staff, was hospitalized at [facility] some time ago, has what appears to be chronic respiratory failure and anoxic brain injury from source unknown. He has been made more of a full code for reasons unclear to me by others. His code status would seem to be appropriately limited. He has a sacral osteomyelitis by imaging. I did not try to turn him. He has contractures, it is longstanding. Other than the apparent urostomy for drainage of obstructive uropathy, he has no other devices present. There is no central line, no port, no other lines that are noted. PE: contractures noted. non -interactive. on 45% with no baseline data noted or available. ASSESSMENT: positive blood cultures with what could be a coag-negative staph, we could wait on that and just hold off on the echo for now. In terms of the coag-negative staph, we would probably let it go and not target it. The gram-negative luz maria in the urine may be more important. The sacral osteo is more of a challenge. RECOMMENDATIONS: The main treatment for decubitus ulcerations is avoiding pressure. We can give antibiotics, but they only kill germs, they do not heal wounds. The patient apparently has osteomyelitis by imaging. That will persist unless we can avoid pressure and even then it will take 6-12 months to heal. I have no objection if he is made hospice at the family's discretion, but that is again their call, not ours. I will check on him again Saturday. His overall prognosis is guarded to poor. He is on 45% oxygen at the moment. Nonverbal and non-interactive. His eyes are open, so I assume that is probably why his family wants to continue his treatment program. DT: 11:21:27 TT: 11:47:00 Ref: [id number] - TID: [id number] [facility]
--- NOTE | 2025-01-06 14:19 | PD.RESCONSUL ---
HPI Data of Consult Requesting Physician: Leydi Rojas MD Admitting Provider: Leydi Rojas MD Attending Provider: Leydi Rojas MD Primary Care Provider: Gerri Bentley MD Consult Narrative History of present illness: 39yo mal with PMH of 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, since 2019 who was brought to [facility] from a [facility] due to fever. On arrival to the ED patient was febrile, tachycardic. Pertinent labs: leukocytosis 32,800, UA:bacteria 2+, nitrites, leukocyte esterase +, urine sent for cultures. CT chest abdomen pelvis; osteomyelitis right ischium. Blood cultures taken. cc:: cc: Leydi Rojas MD Exam Vital Signs Temp Pulse Resp BP Pulse Ox O2 Del Method O2 Flow Rate 98.4 F 82 16 96/61 99 Mechanical Ventilation 40 01/06/25 12:00 01/06/25 14:03 01/06/25 06:30 01/06/25 13:15 01/06/25 14:03 01/06/25 12:00 01/05/25 17:44 FiO2 45 01/06/25 14:03 Narrative Exam seen with resident. see other notes for exam Results Labs 01/08/25 05:46 01/08/25 05:46 Labs: Short CBC 01/05/25 01/06/25 Range/Units 20:55 04:47 WBC 23.9 H D 21.1 H (3.8-10.6) Thou/mm3 Hgb 8.7 L D 9.1 L (13.5-16.0) g/dL Hct 27.2 L 28.1 L (41.0-53.0) % Plt Count 346 D 355 (140-440) Thou/mm3 BMP 01/05/25 01/05/25 01/06/25 12:39 20:55 04:47 Sodium 141 145 149 H Potassium 4.6 3.2 L D 3.4 Chloride 104 111 H 115 H Carbon Dioxide 20.9 21.4 22.4 BUN 95 H 79 H 72 H Creatinine 2.9 H 2.5 H 2.4 H Glucose 267 H 188 H D 114 H D Calcium 8.9 7.3 L D 8.1 L Liver Function 01/05/25 01/05/25 01/06/25 Range/Units 12:39 20:55 04:47 Total Bilirubin 0.6 0.5 0.3 (0.3-1.2) mg/dL AST 814 H* 318 H 195 H (0-34) U/L ALT 1105 H* 718 H* 651 H* (10-49) U/L Alkaline Phosphatase 413 H 298 H D 287 H (46-116) U/L Albumin 3.9 3.2 L D 3.4 L (3.5-5.0) gm/dL ABG Interpretation ABG results: 01/05/25 19:43 ABG pH 7.39 ABG pCO2 40 ABG pO2 93 ABG HCO3 24 ABG O2 Saturation 98 ABG Base Excess -1 Impressions Impression: resp failure. uti vs asb acute febrile illness. no info on baseline status noted. remains a full code. he is only 39 yoa. Quality Measures Quality Measures none Medications Home Medications and Allergies Home Medications ?Medication ?Instructions ?Recorded ?Confirmed ?Type Multivitamin And Mineral oral 15 ml G-tube QDAY dietary 01/06/25 01/06/25 History liquid supplement acetaminophen 500 mg/15 mL oral 1,000 mg feeding tube Q8H PRN 01/06/25 01/06/25 History liquid fever or pain acetylcysteine 200 mg/mL (20 %) 2 ml inhalation Q8H PRN COUGH 01/06/25 01/06/25 History solution albuterol sulfate 2.5 mg/3 mL 2.5 mg inhalation Q6H PRN 01/06/25 01/06/25 History (0.083 %) solution for nebulization shortness of breath or wheezing amino acids-protein hydrolysate 15 1 ea PO BID For pressure ulcer of 01/06/25 01/06/25 History gram-100 kcal/30 mL oral liquid sacral region, stage 4 (Pro-Stat Sugar Free) baclofen 5 mg tablet 5 mg feeding tube TID 01/06/25 01/06/25 History bisacodyl 10 mg rectal suppository 10 mg TN QDAY PRN for no BM 01/06/25 01/06/25 History (Dulcolax (bisacodyl)) carboxymethylcellulose sodium 0.5 1 drp Both eyes QDAY lubricant for 01/06/25 01/06/25 History % eye drops in a dropperette eyes chlorhexidine gluconate 0.12 % 15 ml PO BID 01/06/25 01/06/25 History mouthwash diazepam 10 mg/spray (0.1 mL) 10 mg intranasal PRN 01/06/25 01/06/25 History nasal spray (Valtoco) enoxaparin 60 mg/0.6 mL 60 mg subcut BID 01/06/25 01/06/25 History subcutaneous syringe fludrocortisone 0.1 mg tablet 0.1 mg feeding tube BID adrenal 01/06/25 01/06/25 History insufficiency fluocinonide 0.05 % topical 1 applic topical .qshift flaky/dry 01/06/25 01/06/25 History solution skin gabapentin 250 mg/5 mL oral 250 mg feeding tube Q8H hiccups 01/06/25 01/06/25 History solution guaifenesin 100 mg/5 mL oral liquid 100 mg PO Q6H PRN cough 01/06/25 01/06/25 History ipratropium 0.5 mg-albuterol 3 mg 3 ml inhalation QID wheezing 01/06/25 01/06/25 History (2.5 mg base)/3 mL nebulization soln levetiracetam 100 mg/mL oral 100 mg feeding tube BID 01/06/25 01/06/25 History solution lorazepam 0.5 mg tablet 0.5 mg feeding tube Q6H agitation 01/06/25 01/06/25 History magnesium hydroxide 400 mg/5 mL 400 mg PO QDAY PRN NO BM 01/06/25 01/06/25 History oral suspension (Milk of Magnesia) metoclopramide HCl 5 mg tablet 5 mg feeding tube TID 01/06/25 01/06/25 History midodrine 10 mg tablet 10 mg feeding tube TID hypotension 01/06/25 01/06/25 History pantoprazole 40 mg granules 40 mg PO QDAY 01/06/25 01/06/25 History delayed-release for susp in packet (Protonix) phenytoin 125 mg/5 mL oral 600 mg G-tube BID seizures 01/06/25 01/06/25 History suspension sennosides 8.8 mg/5 mL oral syrup 10 ml PO BID 01/06/25 01/06/25 History (senna) sodium phosphates 19 gram-7 118 ml TN QDAY PRN NO BM 01/06/25 01/06/25 History gram/118 mL enema (Fleet Enema) vitamin B complex-vitamin C-folic 1 tab PO QDAY 01/06/25 01/06/25 History acid 0.8 mg tablet (Nephro-Autumn) Allergies Allergy/AdvReac Type Severity Reaction Status Date / Time No Known Allergies Allergy Verified 01/05/25 12:48 Visit Medications Dextrose (Dextrose 50%-Water Inj 50 Ml Syringe) 25 ml IV Q15MIN PRN PRN Reason: BG 50-70 responsive npo pt Stop: 02/04/25 19:10 Dextrose (Dextrose 50%-Water Inj 50 Ml Syringe) 50 ml IV Q15MIN PRN PRN Reason: BG <50 OR BG <70 & pt unresponsive Stop: 02/04/25 19:10 Glucagon (Glucagon Inj 1 Mg Vial) 1 mg IM Q15MIN PRN PRN Reason: BG <70, and no IV access Heparin Sodium (Porcine) (Heparin Sod Inj 5000 Unit/Ml Vial) 5,000 unit SC Q8HR [facility] Stop: 01/19/25 21:59 Last Admin: 01/06/25 06:09 Dose: 5,000 unit Norepinephrine/Dextrose (Levophed In D5w 8mg/250ml) 8 mg in 250 mls @ 6.294 mls/hr IV .Q24H PRN; Protocol PRN Reason: PER PROTOCOL Stop: 02/04/25 16:09 Last Titration: 01/06/25 11:08 Dose: 0 mcg/kg/min, 0 mls/hr Piperacillin/Tazobactam/Dextrose (Zosyn) 3.375 gm in 50 mls @ 12.5 mls/hr IV Q8HR [facility] Stop: 01/12/25 21:59 Last Admin: 01/06/25 06:09 Dose: 12.5 mls/hr Vasopressin/Sodium Chloride (Vasostrict/Ns Ivpb) 20 unit in 100 mls @ 9 mls/hr IV .Q11H7M PRN; Protocol PRN Reason: PER PROTOCOL Stop: 02/04/25 18:49 Vancomycin/Sodium Chloride (Vancomycin/Ns 1 Gm Ivpb) 200 mls @ 120 mls/hr IV Q24H [facility] Stop: 01/13/25 09:59 Last Admin: 01/06/25 11:05 Dose: 120 mls/hr Insulin Human Lispro (Insulin Lispro (Admelog) 1 Unit/0.01 Ml Unit) 0 unit SC Q6HR [facility]; Protocol Stop: 02/05/25 05:59 Last Admin: 01/06/25 11:51 Dose: Not Given Midodrine (Midodrine 5 Mg Tablet) 10 mg PO TID [facility] Stop: 02/05/25 08:59 Last Admin: 01/06/25 11:05 Dose: 10 mg Ondansetron HCl (Ondansetron Inj 2 Mg/Ml Inj 2 Ml) 4 mg IV Q6H PRN; Protocol PRN Reason: NAUSEA OR VOMITING Stop: 02/04/25 17:08 Pantoprazole Sodium (Pantoprazole Inj 40 Mg Vial) 40 mg IVP QDAY [facility] Stop: 02/04/25 17:14 Last Admin: 01/06/25 08:54 Dose: 40 mg Pharmacy Consult (Vancomycin Pharmacy To Dose 1 Each Each) 1 each IV QDAY PRN PRN Reason: CONSULT Stop: 02/04/25 13:14 Discontinued Medications Sodium Chloride (Ns) 1,000 mls @ 999 mls/hr IV .Q1H1M ONE Stop: 01/05/25 12:48 Last Infusion: 01/05/25 13:48 Dose: Infused Piperacillin/Tazobactam/Dextrose (Zosyn) 3.375 gm in 50 mls @ 100 mls/hr IV X1 ONE Stop: 01/05/25 13:37 Last Infusion: 01/05/25 14:28 Dose: Infused Vancomycin/Sodium Chloride (Vancomycin/Ns 1 Gm Ivpb) 200 mls @ 120 mls/hr IV X1 ONE Stop: 01/05/25 15:09 Last Infusion: 01/05/25 16:26 Dose: Infused Sodium Chloride (Ns) 1,000 mls @ 999 mls/hr IV .Q1H1M ONE Stop: 01/05/25 15:47 Last Infusion: 01/05/25 16:25 Dose: Infused Lactated Ringer's (Lactated Ringers) 500 mls @ 999 mls/hr IV .Q31M ONE Stop: 01/05/25 18:36 Last Admin: 01/05/25 19:17 Dose: Not Given Lactated Ringer's (Lactated Ringers) 1,000 mls @ 999 mls/hr IV .Q1H1M ONE Stop: 01/05/25 19:06 Last Admin: 01/05/25 19:53 Dose: 999 mls/hr Potassium Chloride (Kcl Ivpb) 10 meq in 100 mls @ 100 mls/hr IV Q1H KIT Stop: 01/06/25 11:27 Last Admin: 01/06/25 12:35 Dose: 100 mls/hr Insulin Human Lispro (Insulin Lispro (Admelog) 1 Unit/0.01 Ml Unit) 0 unit SC AC KIT; Protocol Stop: 02/05/25 07:29 Sodium Chloride (Sodium Chloride Rt 10% 15 Ml Nebu) 5 ml INH X1 ONE Stop: 01/05/25 19:07 Last Admin: 01/06/25 03:21 Dose: Not Given Sodium Chloride (Sodium Chloride Rt 10% 15 Ml Nebu) 5 ml INH X1 ONE Stop: 01/06/25 08:51 Assessment & Plan Plan 39yo mal with PMH of 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, since 2019 who was brought to [facility] due to fever. On arrival to the ED patient was febrile, hypotensive, tachycardic. Pertinent labs: leukocytosis 32,800, UA:bacteria 2+, nitrites, leukocyte esterase +, urine sent for cultures. CT chest abdomen pelvis: Pneumonia, osteomyelitis right ischium. Blood cultures taken. ID conulted. #Septic shock due to #Urinary tract infection #Osteomyelitis -Currently on 2 pressors -UA preliminary growing gram negative rods, pending speciation -BC growing GPCs -Osteomyelitis in the setting of pressure ulcers, which makes healing complicated -Continue vanc and zosyn for now Patient's care discussed with attending physician, Dr Redd Dickey MD PGY3
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
--- NOTE | 2025-01-06 17:14 | ECHO_ITS ---
Transthoracic Echo Report Ht (in): 66 Wt (lb): 128 Exam Location: Echo Lab Status: Inpatient Cat Driver: DEIDRE Vogt^^^^ Indications: Procedure Performed: BP: 121 / 66 HR: 94 Technical Quality: Very technically difficult study MEASUREMENTS (Male / Female) Normal Values DOPPLER TR Peak Velocity 194.0 cm/s TR Peak Gradient 15.1 mmHg PV Peak Velocity 127.0 cm/s PV Peak Gradient 6.5 mmHg RVOT Peak Velocity 50.2 cm/s FINDINGS Left Ventricle Normal left ventricular size, wall thickness, systolic function with no obvious regional wall motion abnormalities. The left ventricular ejection fraction is normal, estimated at 60-65%. Right Ventricle Normal estimated right ventricular systolic pressure 15 mmHg. Left Atrium Left atrium not well visualized. Right Atrium Right atrium is not well visualized. Atrial Septum The interatrial septum not well visualized. Aorta The aorta is normal by two-dimensional, color flow and Doppler interrogation. Mitral Valve The mitral valve is not well visualized. Aortic Valve The aortic valve is not well visualized. Tricuspid Valve There is mild tricuspid valve regurgitation. Pulmonic Valve Trivial pulmonic valve regurgitation. Vessels The pulmonary artery appears normal. The inferior vena cava pulmonary and hepatic veins appear normal. Pericardium The pericardium is normal by two-dimensional imaging. There is no significant pericardial effusion. CONCLUSIONS indication: Shock Very Difficult echo due to body habitus & breathing LV appears normal with EF 60-65% Mild TR. Jack Ulloa (Electronically Signed) Final Date: 06 January 2025 16:25
--- NOTE | 2025-01-06 18:19 | ESPR_ITS ---
<Statement entered by Mily Buenrostro MD - 01/06/25 20:46> I discussed with and supervised the nutrition intern physician who took care of this patient. I personally saw and examined the patient and discussed the assessment and plan with the entire medicine team, including my attending , I agree with most of the assessment and plan as documented below Mily Buenrostro M.D. PGY-2 <Statement entered by Lizzie Hernandez MD - 01/06/25 18:40> I discussed with and supervised the nutrition intern physician who took care of this patient. I personally saw and examined the patient and discussed the assessment and plan with the entire medicine team, including my attending Dr. Santoro, I agree with the assessment and plan as documented below Patient seen and examined at bedside today. Labs and imaging reviewed. Lizzie Hernandez MD PGY-3 Disclaimer: Despite multiple revisions, due to the dictation software being used, the document bellow may not be free of grammatical errors including phonetic/typographic errors. However, this does not deter from our commitment to providing health care in the patient's best interest in mind. Documentation for date of: 01/06/25 Subjective Subjective Interval history: No overnight events. Patient seen and examined at bedside. Patient nonverbal, flexor posturing to pain, patient baseline. Continue IV antibiotics. Follow-up ID consult regarding PICC line for long-term antibiotics for osteomyelitis. Exam Vital Signs Temp Pulse Resp BP Pulse Ox O2 Del Method O2 Flow Rate 97.7 F 83 16 103/70 100 Mechanical Ventilation 40 01/06/25 16:00 01/06/25 17:15 01/06/25 06:30 01/06/25 17:15 01/06/25 17:15 01/06/25 16:00 01/05/25 17:44 FiO2 45 01/06/25 16:00 Narrative Exam PE: Gen: Chronically ill-appearing. HEENT: NCAT, MMM, anicteric conjunctivae. Tracheostomy to vent. CVS: normal S1 and S2. RRR. No M/R/G. Resp: CTA B/L. No rhonchi, rales, crackles or wheezing. Poor lung sounds due to low respiratory effort. Abd: soft, non-tender, non-distended. PEG tube. Nephrostomy tube. Suprapubic Lal cath. MSK: Bilateral lower extremity contractures. Dry flaky skin bilateral lower extremities. Neuro: Flexor posturing to noxious stimuli. Eyes open but does not track. Nonverbal. Objective Labs 01/06/25 04:47 01/06/25 04:47 Labs: Laboratory Results - last 24 hr 01/05/25 01/05/25 01/05/25 12:39 19:43 20:55 WBC 23.9 H D RBC 2.94 L Hgb 8.7 L D Hct 27.2 L MCV 93 MCH 29.6 MCHC 32.0 RDW Std Deviation 47.6 H Plt Count 346 D Neut % (Auto) 87 H Lymph % (Auto) 5 L [place] % (Auto) 6 Eos % (Auto) 1 Baso % (Auto) 0 Neut # (Auto) 20.8 H Lymph # (Auto) 1.1 [place] # (Auto) 1.5 H Eos # (Auto) 0.2 Baso # (Auto) 0.1 Immature Gran # (Auto) 0.14 H Absolute Nucleated RBC 0.00 Immature Gran % 1 H Nucleated RBC % 0 PT INR APTT Puncture Site Right Radial ABG pH 7.39 ABG pCO2 40 ABG pO2 93 ABG HCO3 24 ABG O2 Saturation 98 ABG Base Excess -1 FiO2 45 Sodium 145 Potassium 3.2 L D Chloride 111 H Carbon Dioxide 21.4 Anion Gap 13 BUN 79 H Creatinine 2.5 H Estim Creat Clear Calc 35.1 L eGFR 32 L BUN/Creatinine Ratio 32 H Glucose [address] Glu mg/dL 97 Hemoglobin A1c 5.0 Calculated Osmolality 317 H Lactic Acid 1.4 Calcium 7.3 L D Corrected Calcium 7.9 L Phosphorus Magnesium Total Bilirubin 0.5 AST 318 H ALT 718 H* Alkaline Phosphatase 298 H D Total Protein 6.1 Albumin 3.2 L D Globulin 2.9 Albumin/Globulin Ratio 1.1 L Triglycerides Cholesterol LDL Cholesterol, Calc HDL Cholesterol Cholesterol/HDL Ratio 01/06/25 04:47 WBC 21.1 H RBC 3.06 L Hgb 9.1 L Hct 28.1 L MCV 92 MCH 29.7 MCHC 32.4 RDW Std Deviation 46.8 H Plt Count 355 Neut % (Auto) 83 H Lymph % (Auto) 6 L [place] % (Auto) 6 Eos % (Auto) 4 Baso % (Auto) 0 Neut # (Auto) 17.6 H Lymph # (Auto) 1.2 [place] # (Auto) 1.2 H Eos # (Auto) 0.9 H Baso # (Auto) 0.1 Immature Gran # (Auto) 0.08 H Absolute Nucleated RBC 0.00 Immature Gran % 0 Nucleated RBC % 0 PT 11.6 INR 1.1 APTT 25.9 Puncture Site ABG pH ABG pCO2 ABG pO2 ABG HCO3 ABG O2 Saturation ABG Base Excess FiO2 Sodium 149 H Potassium 3.4 Chloride 115 H Carbon Dioxide 22.4 Anion Gap 12 BUN 72 H Creatinine 2.4 H Estim Creat Clear Calc 33.5 L eGFR 34 L BUN/Creatinine Ratio 30 H Glucose [address] Glu mg/dL Hemoglobin A1c Calculated Osmolality 318 H Lactic Acid 0.8 Calcium 8.1 L Corrected Calcium 8.6 Phosphorus 4.8 Magnesium 2.7 H Total Bilirubin 0.3 AST 195 H ALT 651 H* Alkaline Phosphatase 287 H Total Protein 6.4 Albumin 3.4 L Globulin 3.0 Albumin/Globulin Ratio 1.1 L Triglycerides 149 Cholesterol 128 L LDL Cholesterol, Calc 73 HDL Cholesterol 25 L Cholesterol/HDL Ratio 5.1 ABG Interpretation ABG results: 01/05/25 19:43 ABG pH 7.39 ABG pCO2 40 ABG pO2 93 ABG HCO3 24 ABG O2 Saturation 98 ABG Base Excess -1 Quality Measures Quality Measures VTE prophylaxis Assessment & Plan Assessment Current Active Medications: Generic Name Dose Route Start Last Admin Trade Name Freq PRN Reason Stop Dose Admin Dextrose 25 ml 01/05/25 19:11 Dextrose 50%-Water Inj 50 Ml Syringe IV 02/04/25 19:10 Q15MIN PRN BG 50-70 responsive npo pt Dextrose 50 ml 01/05/25 19:11 Dextrose 50%-Water Inj 50 Ml Syringe IV 02/04/25 19:10 Q15MIN PRN BG <50 OR BG <70 & pt unresponsive Glucagon 1 mg 01/05/25 19:11 Glucagon Inj 1 Mg Vial IM Q15MIN PRN BG <70, and no IV access Heparin Sodium (Porcine) 5,000 unit 01/05/25 22:00 01/06/25 14:20 Heparin Sod Inj 5000 Unit/Ml Vial SC 01/19/25 21:59 5,000 unit Q8HR KIT Administration Piperacillin/Tazobactam/Dextrose 3.375 gm in 50 mls @ 12.5 mls/hr 01/05/25 22:00 01/06/25 14:20 Zosyn IV 01/12/25 21:59 12.5 mls/hr Q8HR KIT Administration Vancomycin/Sodium Chloride 200 mls @ 120 mls/hr 01/06/25 10:00 01/06/25 11:05 Vancomycin/Ns 1 Gm Ivpb IV 01/13/25 09:59 120 mls/hr Q24H KIT Administration Insulin Human Lispro 0 unit 01/06/25 06:00 01/06/25 11:51 Insulin Lispro (Admelog) 1 Unit/0.01 Ml Unit SC 02/05/25 05:59 Not Given Q6HR KIT Protocol Midodrine 10 mg 01/06/25 09:00 01/06/25 14:20 Midodrine 5 Mg Tablet PO 02/05/25 08:59 10 mg TID KIT Administration Ondansetron HCl 4 mg 01/05/25 17:09 Ondansetron Inj 2 Mg/Ml Inj 2 Ml IV 02/04/25 17:08 Q6H PRN NAUSEA OR VOMITING Protocol Pantoprazole Sodium 40 mg 01/05/25 17:15 01/06/25 08:54 Pantoprazole Inj 40 Mg Vial IVP 02/04/25 17:14 40 mg QDAY KIT Administration Pharmacy Consult 1 each 01/05/25 13:15 Vancomycin Pharmacy To Dose 1 Each Each IV 02/04/25 13:14 QDAY PRN CONSULT Plan 39-year-old male with a past medical history of 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 Successfully weaned off pressors, downgrade to floors for further management. #Septic shock requiring pressor support-resolved #UTI #Pneumonia #Osteomyelitis of right ischium Sepsis is multifactorial with pneumonia and UA indicating UTI, multiple pressure ulcers, sacral osteomyelitis Chest x-ray revealed left-sided pneumonia, CT A/P showed osteomyelitis right ischium. WBC was elevated, lactic acid was 2.7, Pro-Chuck was severely elevated, patient was febrile Patient received significant IV fluids remained in shock, sent to ICU for pressor support. Patient titrated off pressors, blood pressure and stable and was downgraded to floors for further management. Blood cultures growing GPC 1/2 bottles. Urine and blood cultures final result pending. Sputum cultures pending -Continue vancomycin and Zosyn (started 01/05) -Blood culture/urine culture final result pending -Sputum culture pending -Midodrine 10 milligrams 3 times daily -ID consulted, appreciate recommendations #GERD #Shock liver, severe transaminitis, improving AST 814, ALT 1105, ALP 413 on admission. Suspect shock liver in setting of septic shock. Patient received sepsis protocol fluid bolus. Transaminitis improving -Will follow-up with daily CMP -PPI IV for prophylaxis #Obstructive uropathy #ELDON versus ELDON on CKD On presentation creatinine was 2.9, BUN 95, EGFR of 27. Patient received IV fluids, sepsis protocol. No previous labs to compare to. Renal function improving. -Continue close monitoring -Avoid nephrotoxic agent -Renally dose medication -Monitor MARILU's -Resume home tube feeds with water flushes #Seizure #Anoxic brain injury due to cardiac arrest, nonverbal Patient history as stated. Tracheostomy and PEG tube. -Consider resuming home meds phenytoin #DM type II Home medications insulin. A1c 5%. -Insulin sliding scale -Hypoglycemic protocols in place -Restarted home tube feeding DVT prophylaxis: Heparin GI prophylaxis: PPI Diet: PEG tube feeds Lines: PIV, tracheostomy, suprapubic catheter, nephrostomy tube, PEG tube CODE STATUS:Full code Plan of care discussed with senior resident Dr. Buenrostro PGY?[address] Hernandez PGY?3, attending Dr. Santoro. James Crespo MD PGY?1
[2025-01-07] VITALS (54 sets, daily range): BP systolic 79–125; BP diastolic 52–78; PULSE 95–121; RESP 13–29; TEMP 36.6–37.3; O2SAT 89–100
[2025-01-07] MEDS: MIDODRINE 5 MG TABLET 10 MG PO (05:22)
[2025-01-07] MEDS: HEPARIN SOD INJ 5000 UNIT/ML VIAL SC (05:23)
[2025-01-07] MEDS: PIPER/TAZO 3.375 GM PREMIX 3.375 GM/50 ML BAG IV ×3 (05:23→21:46)
[2025-01-07 06:31] LABS: Alanine Aminotransferase 417 U/L (10-49); Albumin, Serum 3.4 gm/dL (3.5-5.0); Albumin/Globulin Ratio 1.1 (1.2-2.2); Alkaline Phosphatase 263 U/L (46-116); Anion Gap 12 (7-16); Aspartate Amino Transferase 51 U/L (0-34); BUN/Creatinine Ratio 30 Ratio (12-20); Bilirubin,Total 0.2 mg/dL (0.3-1.2); Blood Urea Nitrogen 64 mg/dL (9-23); Calcium 9.2 mg/dL (8.3-10.6); Calcium (Corrected) 9.7 mg/dL (8.5-10.1); Carbon Dioxide 23.2 mMol/L (20.0-31.0); Chloride 114 mMol/L (98-107); Creatinine (Component) 2.1 mg/dL (0.6-1.3); Estimated Creatinine Clearance 39.4 mL/min (>60); Globulin 3.2 gm/dL (2.3-3.5); Glucose 137 mg/dL (74-106); Magnesium 2.6 mg/dL (1.6-2.6); Osmolality,Calculated 316 (275-295); Phosphorous 3.3 mg/dL (2.4-5.1); Potassium 3.8 mMol/L (3.4-5.1); Sodium 149 mMol/L (136-145); Total Protein 6.6 gm/dL (5.7-8.2); eGFR 40 See Note
[2025-01-07 07:05] LABS: Hepatitis C Antibody Non Reactive (Non React)
[2025-01-07 08:54] LABS: Basophils # (Auto) 0.1 Thou/mm3 (0.0-0.2); Basophils % (Auto) 1 % (0-2.5); Eosinophils # (Auto) 1.7 Thou/mm3 (0.0-0.5); Eosinophils % (Auto) 14 % (0-10); HIV (1&2) Antibody Rapid Non-Reactive; Hematocrit 29.4 % (41.0-53.0); Hemoglobin 9.3 g/dL (13.5-16.0); Immature Granulocytes % (Auto) 0 % (0-0); Immature Granulocytes Auto 0.02 Thou/mm3 (0.00-0.00); Lymphocytes # (Auto) 1.3 Thou/mm3 (1.0-4.8); Lymphocytes % (Auto) 10 % (10-50); Mean Corpuscular HGB Conc 31.6 g/dl (31.0-37.0); Mean Corpuscular Hemoglobin 29.9 pg (25.0-35.0); Mean Corpuscular Volume 95 fL (80-100); Monocytes # (Auto) 0.7 Thou/mm3 (0.0-0.8); Monocytes % (Auto) 6 % (0-12); Neutrophils # (Auto) 8.4 Thou/mm3 (1.8-7.7); Neutrophils % (Auto) 69 % (37-80); Nucleated Red Blood Cell % 0 /100 WBC (0); Platelet Count 318 Thou/mm3 (140-440); RDW Standard Deviation 48.6 fL (35.1-43.9); Red Blood Count 3.11 Miln/mm3 (4.50-5.90); White Blood Count 12.2 Thou/mm3 (3.8-10.6)
[2025-01-07] MEDS: Silvasorb Gel 45 ML TUBE TOP (10:10)
[2025-01-07] MEDS: VANCOMYCIN/NS 1 GM IVPB 200 ML IV (10:14)
[2025-01-07] MEDS: PANTOPRAZOLE INJ 40 MG VIAL IVP (10:14)
[2025-01-07 10:31] LABS: Sed Rate (ESR) 72 mm/hr (0-15)
[2025-01-07 10:35] LABS: C-Reactive Protein > 10.0 mg/dL (0.0-0.9)
--- NOTE | 2025-01-07 14:28 | ESPR_ITS ---
<Statement entered by Khari Snider MD - 01/08/25 11:26> I have discussed and was present for the essential components of the history, physical examination, diagnosis, and treatment plan with the resident. I agree with the patient's care as documented by the resident and amended herein by me. Khari Snider MD FACP. <Statement entered by Mily Buenrostro MD - 01/07/25 16:20> I discussed with and supervised the hr intern physician who took care of this patient. I personally saw and examined the patient and discussed the assessment and plan with the entire medicine team, including my attending Dr. Snider, I agree with most of the assessment and plan as documented below Mily Buenrostro M.D. PGY-2 Documentation for date of: 01/07/25 Subjective Subjective Interval history: No overnight events. Patient seen and examined at bedside. Patient remains minimally responsive, nonverbal, eyes do not track. Resumed multiple home medications. Continuing IV antibiotics. Exam Vital Signs Temp Pulse Resp BP Pulse Ox O2 Del Method O2 Flow Rate 97.9 F 106 H 16 122/70 89 L Mechanical Ventilation 40 01/07/25 12:00 01/07/25 14:02 01/06/25 06:30 01/07/25 14:02 01/07/25 14:01 01/07/25 12:00 01/05/25 17:44 FiO2 45 01/07/25 12:00 Narrative Exam PE: Gen: Chronically ill-appearing. HEENT: NCAT, MMM, anicteric conjunctivae. Tracheostomy to vent. CVS: normal S1 and S2. RRR. No M/R/G. Resp: CTA B/L. No rhonchi, rales, crackles or wheezing. Poor lung sounds due to low respiratory effort. Abd: soft, non-tender, non-distended. PEG tube. Nephrostomy tube. Suprapubic Lal cath. MSK: Bilateral lower extremity contractures. Dry flaky skin bilateral lower extremities. Neuro: Flexor posturing to noxious stimuli. Eyes open but does not track. Nonverbal. Objective Labs 01/07/25 04:53 01/07/25 04:53 Labs: Laboratory Results - last 24 hr 01/07/25 04:53 WBC 12.2 H D RBC 3.11 L Hgb 9.3 L Hct 29.4 L MCV 95 MCH 29.9 MCHC 31.6 RDW Std Deviation 48.6 H Plt Count 318 D Neut % (Auto) 69 Lymph % (Auto) 10 [place] % (Auto) 6 Eos % (Auto) 14 H Baso % (Auto) 1 Neut # (Auto) 8.4 H Lymph # (Auto) 1.3 [place] # (Auto) 0.7 Eos # (Auto) 1.7 H Baso # (Auto) 0.1 Immature Gran # (Auto) 0.02 H Absolute Nucleated RBC 0.00 Immature Gran % 0 Nucleated RBC % 0 ESR 72 H Sodium 149 H Potassium 3.8 Chloride 114 H Carbon Dioxide 23.2 Anion Gap 12 BUN 64 H Creatinine 2.1 H Estim Creat Clear Calc 39.4 L eGFR 40 L BUN/Creatinine Ratio 30 H Glucose 137 H Calculated Osmolality 316 H Calcium 9.2 Corrected Calcium 9.7 Phosphorus 3.3 Magnesium 2.6 Total Bilirubin 0.2 L AST 51 H ALT 417 H Alkaline Phosphatase 263 H D C-Reactive Prot, Quant > 10.0 H Total Protein 6.6 Albumin 3.4 L Globulin 3.2 Albumin/Globulin Ratio 1.1 L Hepatitis C Antibody Non Reactive HIV 1&2 Antibody Rapid Non-Reactive ABG Interpretation ABG results: 01/05/25 19:43 ABG pH 7.39 ABG pCO2 40 ABG pO2 93 ABG HCO3 24 ABG O2 Saturation 98 ABG Base Excess -1 Quality Measures Quality Measures VTE prophylaxis Assessment & Plan Assessment Current Active Medications: Generic Name Dose Route Start Last Admin Trade Name Freq PRN Reason Stop Dose Admin Dextrose 25 ml 01/05/25 19:11 Dextrose 50%-Water Inj 50 Ml Syringe IV 02/04/25 19:10 Q15MIN PRN BG 50-70 responsive npo pt Dextrose 50 ml 01/05/25 19:11 Dextrose 50%-Water Inj 50 Ml Syringe IV 02/04/25 19:10 Q15MIN PRN BG <50 OR BG <70 & pt unresponsive Glucagon 1 mg 01/05/25 19:11 Glucagon Inj 1 Mg Vial IM Q15MIN PRN BG <70, and no IV access Piperacillin/Tazobactam/Dextrose 3.375 gm in 50 mls @ 12.5 mls/hr 01/05/25 22:00 01/07/25 14:03 Zosyn IV 01/12/25 21:59 12.5 mls/hr Q8HR KIT Administration Vancomycin/Sodium Chloride 200 mls @ 120 mls/hr 01/06/25 10:00 01/07/25 10:14 Vancomycin/Ns 1 Gm Ivpb IV 01/13/25 09:59 120 mls/hr Q24H KIT Administration Insulin Human Lispro 0 unit 01/06/25 06:00 01/07/25 14:02 Insulin Lispro (Admelog) 1 Unit/0.01 Ml Unit SC 02/05/25 05:59 Not Given Q6HR KIT Protocol Midodrine 10 mg 01/06/25 18:38 01/07/25 14:02 Midodrine 5 Mg Tablet PO 02/05/25 08:59 Not Given TID KIT Ondansetron HCl 4 mg 01/05/25 17:09 Ondansetron Inj 2 Mg/Ml Inj 2 Ml IV 02/04/25 17:08 Q6H PRN NAUSEA OR VOMITING Protocol Pantoprazole Sodium 40 mg 01/05/25 17:15 01/07/25 10:14 Pantoprazole Inj 40 Mg Vial IVP 02/04/25 17:14 40 mg QDAY KIT Administration Pharmacy Consult 1 each 01/05/25 13:15 Vancomycin Pharmacy To Dose 1 Each Each IV 02/04/25 13:14 QDAY PRN CONSULT Plan 39-year-old male with a past medical history of 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 Successfully weaned off pressors, downgrade to floors for further management. #Septic shock requiring pressor support-resolved #UTI #Pneumonia #Osteomyelitis of right ischium Sepsis is multifactorial with pneumonia and UA indicating UTI, multiple pressure ulcers, sacral osteomyelitis Chest x-ray revealed left-sided pneumonia, CT A/P showed osteomyelitis right ischium. WBC was elevated, lactic acid was 2.7, Pro-Chuck was severely elevated, patient was febrile Patient received significant IV fluids remained in shock, sent to ICU for pressor support. Patient titrated off pressors, blood pressure and stable and was downgraded to floors for further management. Blood cultures growing GPC 1/2 bottles. Urine and blood cultures final result pending. Sputum cultures pending -Continue vancomycin and Zosyn (started 01/05) -Blood culture/urine culture final result pending -Sputum culture pending -Midodrine 10 mg 3 times daily -ID consulted, appreciate recommendations #GERD #Shock liver, severe transaminitis, improving AST 814, ALT 1105, ALP 413 on admission. Suspect shock liver in setting of septic shock. Patient received sepsis protocol fluid bolus. Transaminitis improving -Will follow-up with daily CMP -PPI IV for prophylaxis #Adrenal insufficiency, suspected Patient takes 0.1 mg fludrocortisone at twice daily at home, suspect due to history of adrenal sufficiency although not clearly documented. Would explain patient's significant hypotension and continued soft blood pressure. -Resume home meds: Fludrocortisone 0.1 mg GT twice daily #Obstructive uropathy #ELDON versus ELDON on CKD On presentation creatinine was 2.9, BUN 95, EGFR of 27. Patient received IV fluids, sepsis protocol. No previous labs to compare to. Renal function improving. -Continue close monitoring -Avoid nephrotoxic agent -Renally dose medication -Monitor MARILU's -Resume home tube feeds with water flushes #Seizure #Anoxic brain injury due to cardiac arrest, nonverbal Patient history as stated. Tracheostomy and PEG tube. -Resume home meds: Baclofen, Keppra, phenytoin #DM type II Home medications insulin. A1c 5%. -Insulin sliding scale -Hypoglycemic protocols in place -Restarted home tube feeding DVT prophylaxis: Heparin GI prophylaxis: PPI Diet: PEG tube feeds Lines: PIV, tracheostomy, suprapubic catheter, nephrostomy tube, PEG tube, CODE STATUS:Full code Plan of care discussed with senior resident Dr. Buenrostro PGY?[address] Snider. James Crespo MD PGY?1
[2025-01-07] MEDS: ALBUTEROL/IPRATROPIUM (Duoneb) RT SOL 3 ML NEBU INH (16:06)
[2025-01-07 16:51] LABS: Phenytoin (Dilantin) 5.2 mcg/mL
--- NOTE | 2025-01-07 17:51 | EKG_ITS ---
[facility] Test Date: 2025-01-07 Pat Name: KETTY BATES [facility] Gender[facility] Chief Controller Center: [facility] : 1985 Requested By: Armando Waite Order Number: [id number] Reading MD: Armando Waite Measurements Intervals [place] Rate: 108 P: 67 OR: 125 QRS: 60 QRSD: 99 T: 27 QT: 325 QTc: 437 Interpretive Statements SINUS TACHYCARDIA INDETERMINATE AXIS LOW QRS VOLTAGE POSSIBLE ANTERIOR MYOCARDIAL INFARCTION , OF INDETERMINATE AGE INFERIOR MYOCARDIAL INFARCTION , PROBABLY OLD No previous ECG available for comparison /[id number]
[2025-01-07] MEDS: INSULIN LISPRO (AdmeLOG) 1 UNIT/0.01 ML UNIT SC (18:41)
--- NOTE | 2025-01-07 19:44 | PC.NURSE ---
AT 1800 Dr. Waite notified of patients HR in 120s, RR at 30s, afebrile and BP
[2025-01-07] MEDS: levETIRAcetam LIQD 500 MG/5 ML UDC 100 MG GT (21:45)
[2025-01-07] MEDS: ENOXAPARIN SOD INJ 60 MG/0.6 ML SYRINGE SC (21:46)
[2025-01-07] MEDS: BACLOFEN 10 MG TABLET 5 MG PO (21:46)
[2025-01-07] MEDS: FLUDROCORTISONE ACETATE 0.1 MG TABLET GT (21:46)
[2025-01-07] MEDS: IPRATROPIUM RT 0.5 MG/ 2.5 ML NEBU INH (21:57)
[2025-01-07] MEDS: LEVALBUTEROL RT 1.25 MG/0.5 ML NEBU INH (21:57)
[2025-01-07] MEDS: PHENYTOIN 100 MG/4 ML UDC 600 MG GT (22:48)
[2025-01-08] VITALS (15 sets, daily range): BP systolic 92–161; BP diastolic 56–74; PULSE 89–112; RESP 12–26; TEMP 36.1–37.2; O2SAT 91–100; BMI 21.2
[2025-01-08] MEDS: PIPER/TAZO 3.375 GM PREMIX 3.375 GM/50 ML BAG IV ×3 (05:11→21:35)
[2025-01-08] MEDS: MIDODRINE 5 MG TABLET 10 MG PO ×2 (05:11→14:43)
[2025-01-08] MEDS: BACLOFEN 10 MG TABLET 5 MG PO ×3 (05:11→21:24)
[2025-01-08 06:35] LABS: Basophils # (Auto) 0.1 Thou/mm3 (0.0-0.2); Basophils % (Auto) 1 % (0-2.5); Eosinophils # (Auto) 1.6 Thou/mm3 (0.0-0.5); Eosinophils % (Auto) 12 % (0-10); Hemoglobin 9.5 g/dL (13.5-16.0); Immature Granulocytes % (Auto) 1 % (0-0); Immature Granulocytes Auto 0.06 Thou/mm3 (0.00-0.00); Lymphocytes # (Auto) 1.9 Thou/mm3 (1.0-4.8); Lymphocytes % (Auto) 15 % (10-50); Mean Corpuscular HGB Conc 31.7 g/dl (31.0-37.0); Mean Corpuscular Hemoglobin 29.8 pg (25.0-35.0); Mean Corpuscular Volume 94 fL (80-100); Monocytes # (Auto) 0.6 Thou/mm3 (0.0-0.8); Monocytes % (Auto) 5 % (0-12); Neutrophils # (Auto) 8.6 Thou/mm3 (1.8-7.7); Neutrophils % (Auto) 67 % (37-80); Nucleated Red Blood Cell % 0 /100 WBC (0); Platelet Count 298 Thou/mm3 (140-440); RDW Standard Deviation 46.7 fL (35.1-43.9); Red Blood Count 3.19 Miln/mm3 (4.50-5.90); White Blood Count 12.8 Thou/mm3 (3.8-10.6)
[2025-01-08 06:51] LABS: Alanine Aminotransferase 261 U/L (10-49); Albumin, Serum 3.6 gm/dL (3.5-5.0); Albumin/Globulin Ratio 1.2 (1.2-2.2); Alkaline Phosphatase 265 U/L (46-116); Anion Gap 13 (7-16); Aspartate Amino Transferase 19 U/L (0-34); BUN/Creatinine Ratio 30 Ratio (12-20); Bilirubin,Total 0.2 mg/dL (0.3-1.2); Blood Urea Nitrogen 59 mg/dL (9-23); Calcium 8.8 mg/dL (8.3-10.6); Calcium (Corrected) 9.1 mg/dL (8.5-10.1); Carbon Dioxide 23.2 mMol/L (20.0-31.0); Chloride 112 mMol/L (98-107); Estimated Creatinine Clearance 41.3 mL/min (>60); Globulin 3.1 gm/dL (2.3-3.5); Glucose 113 mg/dL (74-106); Magnesium 2.5 mg/dL (1.6-2.6); Osmolality,Calculated 311 (275-295); Phosphorous 3.3 mg/dL (2.4-5.1); Sodium 148 mMol/L (136-145); Total Protein 6.7 gm/dL (5.7-8.2); eGFR 42 See Note
[2025-01-08] MEDS: LEVALBUTEROL RT 1.25 MG/0.5 ML NEBU INH ×3 (07:27→22:00)
[2025-01-08] MEDS: IPRATROPIUM RT 0.5 MG/ 2.5 ML NEBU INH ×3 (07:27→22:00)
[2025-01-08] MEDS: PANTOPRAZOLE INJ 40 MG VIAL IVP (09:00)
[2025-01-08] MEDS: levETIRAcetam LIQD 500 MG/5 ML UDC 100 MG GT ×2 (09:01→21:22)
[2025-01-08] MEDS: ENOXAPARIN SOD INJ 60 MG/0.6 ML SYRINGE SC ×2 (09:01→21:36)
[2025-01-08] MEDS: MULTIVITAMIN 15 ML UDC PO (09:01)
[2025-01-08] MEDS: PHENYTOIN 100 MG/4 ML UDC 600 MG GT ×2 (09:01→21:22)
[2025-01-08] MEDS: VIT B12/Vit C/FA (Nephrovite) TABLET 1 TAB PO (09:01)
[2025-01-08] MEDS: FLUDROCORTISONE ACETATE 0.1 MG TABLET GT ×2 (09:01→21:35)
--- NOTE | 2025-01-08 09:22 | PD.IDPROG ---
Subjective Subjective Interval history: wound cx noted. not done in ED. those are discouraged actively, not reliable. please do not do them. sputum with gnr. coag neg in bc. Exam Vital Signs Temp Pulse Resp BP Pulse Ox O2 Del Method O2 Flow Rate 97.6 F 89 18 111/62 100 Mechanical Ventilation 40 01/08/25 08:00 01/08/25 08:00 01/08/25 08:00 01/08/25 08:00 01/08/25 08:00 01/08/25 08:00 01/08/25 08:00 FiO2 45 01/08/25 08:00 Narrative Exam limited visit today. Objective - Internal Medicine Labs 01/08/25 05:46 01/08/25 05:46 Labs: Laboratory Results - last 24 hr 01/07/25 01/07/25 01/08/25 04:53 16:03 05:46 WBC 12.8 H RBC 3.19 L Hgb 9.5 L Hct 30.0 L MCV 94 MCH 29.8 MCHC 31.7 RDW Std Deviation 46.7 H Plt Count 298 Neut % (Auto) 67 Lymph % (Auto) 15 [place] % (Auto) 5 Eos % (Auto) 12 H Baso % (Auto) 1 Neut # (Auto) 8.6 H Lymph # (Auto) 1.9 [place] # (Auto) 0.6 Eos # (Auto) 1.6 H Baso # (Auto) 0.1 Immature Gran # (Auto) 0.06 H Absolute Nucleated RBC 0.00 Immature Gran % 1 H Nucleated RBC % 0 ESR 72 H Sodium 148 H Potassium 4.0 Chloride 112 H Carbon Dioxide 23.2 Anion Gap 13 BUN 59 H Creatinine 2.0 H Estim Creat Clear Calc 41.3 L eGFR 42 L BUN/Creatinine Ratio 30 H Glucose 113 H Calculated Osmolality 311 H Calcium 8.8 Corrected Calcium 9.1 Phosphorus 3.3 Magnesium 2.5 Total Bilirubin 0.2 L AST 19 ALT 261 H Alkaline Phosphatase 265 H C-Reactive Prot, Quant > 10.0 H Total Protein 6.7 Albumin 3.6 Globulin 3.1 Albumin/Globulin Ratio 1.2 Phenytoin 5.2 ABG Interpretation ABG results: 01/05/25 19:43 ABG pH 7.39 ABG pCO2 40 ABG pO2 93 ABG HCO3 24 ABG O2 Saturation 98 ABG Base Excess -1 Assessment & Plan A&P Narrative bacteremia probably a contaminant bacteriuria ID pending. S pending ua not striking but not normal du with apparent osteo. du's will not improve unless pressure avoidance is imposed. abx only kill germs, they do not heal wounds. anoxic brain injury obstructive uropathy. full code with other health problems at 39 yoa. with anoxic brain injury no objection if he is made hospice empiric abx rx ok for now. will see again Saturday likely to have some micro by then to guide rx you can start the pressure avoidance strategies for the du if family makes him hospice. that is ok with me. try to get old records on him if you can. will review again saturday. suspect wound cx and sputum will grow something. those are almost never sterile. Time Spent With Patient Time: Total time spent is greater than 50% in coordination of care (as documented) at patient's floor/unit and/or counseling patient:
--- NOTE | 2025-01-08 10:15 | ESPR_ITS ---
Subjective Subjective Interval history: micro noted. cx not finalized. pt static on empiric rx. no baseline data available. Exam Vital Signs Temp Pulse Resp BP Pulse Ox O2 Del Method O2 Flow Rate 97.6 F 89 18 111/62 100 Mechanical Ventilation 40 01/08/25 08:00 01/08/25 08:00 01/08/25 08:00 01/08/25 08:00 01/08/25 08:00 01/08/25 08:00 01/08/25 08:00 FiO2 45 01/08/25 08:00 Narrative Exam limited eval today Objective - Internal Medicine Labs 01/08/25 05:46 01/08/25 05:46 Labs: Laboratory Results - last 24 hr 01/07/25 01/07/25 01/08/25 04:53 16:03 05:46 WBC 12.8 H RBC 3.19 L Hgb 9.5 L Hct 30.0 L MCV 94 MCH 29.8 MCHC 31.7 RDW Std Deviation 46.7 H Plt Count 298 Neut % (Auto) 67 Lymph % (Auto) 15 [place] % (Auto) 5 Eos % (Auto) 12 H Baso % (Auto) 1 Neut # (Auto) 8.6 H Lymph # (Auto) 1.9 [place] # (Auto) 0.6 Eos # (Auto) 1.6 H Baso # (Auto) 0.1 Immature Gran # (Auto) 0.06 H Absolute Nucleated RBC 0.00 Immature Gran % 1 H Nucleated RBC % 0 ESR 72 H Sodium 148 H Potassium 4.0 Chloride 112 H Carbon Dioxide 23.2 Anion Gap 13 BUN 59 H Creatinine 2.0 H Estim Creat Clear Calc 41.3 L eGFR 42 L BUN/Creatinine Ratio 30 H Glucose 113 H Calculated Osmolality 311 H Calcium 8.8 Corrected Calcium 9.1 Phosphorus 3.3 Magnesium 2.5 Total Bilirubin 0.2 L AST 19 ALT 261 H Alkaline Phosphatase 265 H C-Reactive Prot, Quant > 10.0 H Total Protein 6.7 Albumin 3.6 Globulin 3.1 Albumin/Globulin Ratio 1.2 Phenytoin 5.2 ABG Interpretation ABG results: 01/05/25 19:43 ABG pH 7.39 ABG pCO2 40 ABG pO2 93 ABG HCO3 24 ABG O2 Saturation 98 ABG Base Excess -1 Assessment & Plan A&P Narrative bacteremia probably a contaminant bacteriuria ID pending. S pending ua not striking but not normal du with apparent osteo. du's will not improve unless pressure avoidance is imposed. abx only kill germs, they do not heal wounds. anoxic brain injury obstructive uropathy. full code with other health problems at 39 yoa. with anoxic brain injury no objection if he is made hospice empiric abx rx ok for now. will see again Saturday likely to have some micro by then to guide rx you can start the pressure avoidance strategies for the du if family makes him hospice. that is ok with me. try to get old records on him if you can. will review again saturday. suspect wound cx and sputum will grow something. those are almost never sterile. Time Spent With Patient Time: Total time spent is greater than 50% in coordination of care (as documented) at patient's floor/unit and/or counseling patient:
--- NOTE | 2025-01-08 11:17 | ESPR_ITS ---
<Statement entered by Khari Snider MD - 01/09/25 17:12> I have discussed and was present for the essential components of the history, physical examination, diagnosis, and treatment plan with the resident. I agree with the patient's care as documented by the resident and amended herein by me. Khari Snider MD FACP. <Statement entered by Mily Buenrostro MD - 01/09/25 14:40> I discussed with and supervised the internal auditor physician who took care of this patient. I personally saw and examined the patient and discussed the assessment and plan with the entire medicine team, including my attending Dr. Snider, I agree with most of the assessment and plan as documented below Mily Buenrostro M.D. PGY-2 Documentation for date of: 01/08/25 Subjective Subjective Interval history: No overnight events. Patient seen and examined at bedside. Patient alert, nonverbal, withdraws from pain. Initial blood culture resulted in staph epi, likely contaminant. Continue empiric antibiotics, pending urine and sputum cultures. Exam Vital Signs Temp Pulse Resp BP Pulse Ox O2 Del Method O2 Flow Rate 97.6 F 89 18 111/62 100 Mechanical Ventilation 40 01/08/25 08:00 01/08/25 08:00 01/08/25 08:00 01/08/25 08:00 01/08/25 08:00 01/08/25 08:00 01/08/25 08:00 FiO2 45 01/08/25 08:00 Narrative Exam PE: Gen: Chronically ill-appearing. HEENT: NCAT, MMM, anicteric conjunctivae. Tracheostomy to vent. CVS: normal S1 and S2. RRR. No M/R/G. Resp: CTA B/L. No rhonchi, rales, crackles or wheezing. Poor lung sounds due to low respiratory effort. Abd: soft, non-tender, non-distended. PEG tube. Nephrostomy tube. Suprapubic Lal cath. MSK: Bilateral lower extremity contractures. Dry flaky skin bilateral lower extremities. Neuro: Flexor posturing to noxious stimuli. Eyes open but does not track. Nonverbal. Objective Labs 01/08/25 05:46 01/08/25 05:46 Labs: Laboratory Results - last 24 hr 01/07/25 01/08/25 16:03 05:46 WBC 12.8 H RBC 3.19 L Hgb 9.5 L Hct 30.0 L MCV 94 MCH 29.8 MCHC 31.7 RDW Std Deviation 46.7 H Plt Count 298 Neut % (Auto) 67 Lymph % (Auto) 15 [place] % (Auto) 5 Eos % (Auto) 12 H Baso % (Auto) 1 Neut # (Auto) 8.6 H Lymph # (Auto) 1.9 [place] # (Auto) 0.6 Eos # (Auto) 1.6 H Baso # (Auto) 0.1 Immature Gran # (Auto) 0.06 H Absolute Nucleated RBC 0.00 Immature Gran % 1 H Nucleated RBC % 0 Sodium 148 H Potassium 4.0 Chloride 112 H Carbon Dioxide 23.2 Anion Gap 13 BUN 59 H Creatinine 2.0 H Estim Creat Clear Calc 41.3 L eGFR 42 L BUN/Creatinine Ratio 30 H Glucose 113 H Calculated Osmolality 311 H Calcium 8.8 Corrected Calcium 9.1 Phosphorus 3.3 Magnesium 2.5 Total Bilirubin 0.2 L AST 19 ALT 261 H Alkaline Phosphatase 265 H Total Protein 6.7 Albumin 3.6 Globulin 3.1 Albumin/Globulin Ratio 1.2 Phenytoin 5.2 ABG Interpretation ABG results: 01/05/25 19:43 ABG pH 7.39 ABG pCO2 40 ABG pO2 93 ABG HCO3 24 ABG O2 Saturation 98 ABG Base Excess -1 Quality Measures Quality Measures VTE prophylaxis Assessment & Plan Assessment Current Active Medications: Generic Name Dose Route Start Last Admin Trade Name Freq PRN Reason Stop Dose Admin Albuterol 2.5 mg 01/07/25 15:17 Albuterol Rt 2.5 Mg/0.5 Ml Nebu INH 02/06/25 14:58 Q6H PRN shortness of breath or wheezing Baclofen 5 mg 01/07/25 22:00 01/08/25 05:11 Baclofen 10 Mg Tablet PO 02/06/25 21:59 5 mg TID KIT Administration Gabapentin 250 Mg/5 0 ea 01/07/25 18:42 Ml Solution GT 02/06/25 18:41 Q8HR PRN HICCUPS Dextrose 25 ml 01/05/25 19:11 Dextrose 50%-Water Inj 50 Ml Syringe IV 02/04/25 19:10 Q15MIN PRN BG 50-70 responsive npo pt Dextrose 50 ml 01/05/25 19:11 Dextrose 50%-Water Inj 50 Ml Syringe IV 02/04/25 19:10 Q15MIN PRN BG <50 OR BG <70 & pt unresponsive Enoxaparin Sodium 60 mg 01/07/25 21:00 01/08/25 09:01 Enoxaparin Sod Inj 60 Mg/0.6 Ml Syringe SC 01/21/25 20:59 60 mg BID KIT Administration Fludrocortisone Acetate 0.1 mg 01/07/25 21:00 01/08/25 09:01 Fludrocortisone Acetate 0.1 Mg Tablet GT 02/06/25 20:59 0.1 mg BID KIT Administration Glucagon 1 mg 01/05/25 19:11 Glucagon Inj 1 Mg Vial IM Q15MIN PRN BG <70, and no IV access Piperacillin/Tazobactam/Dextrose 3.375 gm in 50 mls @ 12.5 mls/hr 01/05/25 22:00 01/08/25 05:11 Zosyn IV 01/12/25 21:59 12.5 mls/hr Q8HR KIT Administration Vancomycin/Sodium Chloride 200 mls @ 120 mls/hr 01/06/25 10:00 01/07/25 19:05 Vancomycin/Ns 1 Gm Ivpb IV 01/13/25 09:59 Infused Q24H KIT Infusion Insulin Human Lispro 0 unit 01/06/25 06:00 01/08/25 05:19 Insulin Lispro (Admelog) 1 Unit/0.01 Ml Unit SC 02/05/25 05:59 Not Given Q6HR [facility] Protocol Ipratropium [place] 0.5 mg 01/07/25 21:00 01/08/25 07:27 Ipratropium Rt 0.5 Mg/ 2.5 Ml Nebu INH 02/06/25 20:59 0.5 mg QIDRT KIT Administration Levalbuterol HCl 1.25 mg 01/07/25 21:00 01/08/25 07:27 Levalbuterol Rt 1.25 Mg/0.5 Ml Nebu INH 02/06/25 20:59 1.25 mg QIDRT KIT Administration Levetiracetam 100 mg 01/07/25 21:00 01/08/25 09:01 Levetiracetam Liqd 500 Mg/5 Ml Udc GT 02/06/25 20:59 100 mg BID KIT Administration Midodrine 10 mg 01/06/25 18:38 01/08/25 05:11 Midodrine 5 Mg Tablet PO 02/05/25 08:59 10 mg TID KIT Administration Multivitamins/Minerals 15 ml 01/08/25 09:00 01/08/25 09:01 Multivitamin 15 Ml Udc PO 02/07/25 08:59 15 ml QDAY KIT Administration Ondansetron HCl 4 mg 01/05/25 17:09 Ondansetron Inj 2 Mg/Ml Inj 2 Ml IV 02/04/25 17:08 Q6H PRN NAUSEA OR VOMITING Protocol Pantoprazole Sodium 40 mg 01/08/25 09:00 01/08/25 09:00 Pantoprazole Inj 40 Mg Vial IVP 02/07/25 08:59 40 mg QDAY IKT Administration Pharmacy Consult 1 each 01/05/25 13:15 Vancomycin Pharmacy To Dose 1 Each Each IV 02/04/25 13:14 QDAY PRN CONSULT Phenytoin 600 mg 01/07/25 21:00 01/08/25 09:01 Phenytoin 100 Mg/4 Ml Udc GT 02/06/25 20:59 600 mg BID KIT Administration Sodium Chloride 3 ml 01/07/25 17:55 Sodium Chloride Rt [place] 0.9% 3 Ml Nebu INH 02/06/25 17:54 PRN PRN SOLN Vitamin B Complex/Vit C/Folic Acid 1 tab 01/08/25 09:00 01/08/25 09:01 Vit B12/Vit C/Fa (Nephrovite) Tablet PO 02/07/25 08:59 1 tab QDAY KIT Administration Plan 39-year-old male with a past medical history of 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 Successfully weaned off pressors, downgrade to floors for further management. #Septic shock requiring pressor support-resolved #UTI #Pneumonia #Osteomyelitis of right ischium Sepsis is multifactorial with pneumonia and UA indicating UTI, multiple pressure ulcers, sacral osteomyelitis Chest x-ray revealed left-sided pneumonia, CT A/P showed osteomyelitis right ischium. WBC was elevated, lactic acid was 2.7, Pro-Chuck was severely elevated, patient was febrile Patient received significant IV fluids remained in shock, sent to ICU for pressor support. Patient titrated off pressors, blood pressure and stable and was downgraded to floors for further management. Blood cultures growing staph epi 1/2 bottles, probable contaminant. Urine and blood cultures final result pending. Sputum cultures pending. -Continue vancomycin and Zosyn (started 01/05) -Blood culture/urine culture final result pending -Sputum culture pending -Midodrine 10 mg 3 times daily -ID consulted, appreciate recommendations #GERD #Shock liver, severe transaminitis, improving AST 814, ALT 1105, ALP 413 on admission. Suspect shock liver in setting of septic shock. Patient received sepsis protocol fluid bolus. Transaminitis improving -Will follow-up with daily CMP -PPI IV for prophylaxis #Adrenal insufficiency, suspected Patient takes 0.1 mg fludrocortisone at twice daily at home, suspect due to history of adrenal sufficiency although not clearly documented. Would explain patient's significant hypotension and continued soft blood pressure. -Resume home meds: Fludrocortisone 0.1 mg GT twice daily #Obstructive uropathy #ELDON versus ELDON on CKD On presentation creatinine was 2.9, BUN 95, EGFR of 27. Patient received IV fluids, sepsis protocol. No previous labs to compare to. Renal function improving. -Continue close monitoring -Avoid nephrotoxic agent -Renally dose medication -Monitor MARILU's -Resume home tube feeds with water flushes #Seizure #Anoxic brain injury due to cardiac arrest, nonverbal Patient history as stated. Tracheostomy and PEG tube. -Resume home meds: Baclofen, Keppra, phenytoin #DM type II Home medications insulin. A1c 5%. -Insulin sliding scale -Hypoglycemic protocols in place -Restarted home tube feeding DVT prophylaxis: Heparin GI prophylaxis: PPI Diet: PEG tube feeds Lines: PIV, tracheostomy, suprapubic catheter, nephrostomy tube, PEG tube, CODE STATUS:Full code Plan of care discussed with senior resident Dr. Buenrostro PGY?[address] Snider. James Crespo MD PGY?1
[2025-01-08 11:39] LABS: Vancomycin,Trough 24.5 mcg/mL (5.0-10.0)
--- NOTE | 2025-01-08 12:00 | CHAP ---
Patient was visited by the Spiritual Care Volunteer who prayed for them. (Volunteer was in the hospital from 10:00-12:00)
[2025-01-08] MEDS: INSULIN LISPRO (AdmeLOG) 1 UNIT/0.01 ML UNIT SC (12:02)
[2025-01-08] MEDS: Silvasorb Gel 45 ML TUBE TOP (14:45)
[2025-01-09] VITALS (17 sets, daily range): BP systolic 97–124; BP diastolic 58–86; PULSE 99–131; RESP 12–25; TEMP 36.1–36.7; O2SAT 94–100
[2025-01-09 06:02] LABS: Basophils # (Auto) 0.1 Thou/mm3 (0.0-0.2); Basophils % (Auto) 1 % (0-2.5); Eosinophils # (Auto) 1.6 Thou/mm3 (0.0-0.5); Eosinophils % (Auto) 11 % (0-10); Hemoglobin 9.5 g/dL (13.5-16.0); Immature Granulocytes % (Auto) 1 % (0-0); Immature Granulocytes Auto 0.09 Thou/mm3 (0.00-0.00); Lymphocytes # (Auto) 1.4 Thou/mm3 (1.0-4.8); Lymphocytes % (Auto) 10 % (10-50); Mean Corpuscular HGB Conc 31.7 g/dl (31.0-37.0); Mean Corpuscular Hemoglobin 30.1 pg (25.0-35.0); Mean Corpuscular Volume 95 fL (80-100); Monocytes # (Auto) 0.7 Thou/mm3 (0.0-0.8); Monocytes % (Auto) 5 % (0-12); Neutrophils # (Auto) 10.9 Thou/mm3 (1.8-7.7); Neutrophils % (Auto) 74 % (37-80); Nucleated Red Blood Cell % 0 /100 WBC (0); Platelet Count 339 Thou/mm3 (140-440); RDW Standard Deviation 47.2 fL (35.1-43.9); Red Blood Count 3.16 Miln/mm3 (4.50-5.90); White Blood Count 14.8 Thou/mm3 (3.8-10.6)
[2025-01-09] MEDS: BACLOFEN 10 MG TABLET 5 MG PO ×3 (06:02→21:06)
[2025-01-09] MEDS: MIDODRINE 5 MG TABLET 10 MG PO ×2 (06:02→13:57)
[2025-01-09] MEDS: PIPER/TAZO 3.375 GM PREMIX 3.375 GM/50 ML BAG IV ×3 (06:03→21:06)
[2025-01-09 06:27] LABS: Alanine Aminotransferase 175 U/L (10-49); Albumin, Serum 3.7 gm/dL (3.5-5.0); Albumin/Globulin Ratio 1.2 (1.2-2.2); Alkaline Phosphatase 258 U/L (46-116); Anion Gap 10 (7-16); Aspartate Amino Transferase 14 U/L (0-34); BUN/Creatinine Ratio 35 Ratio (12-20); Bilirubin,Total 0.2 mg/dL (0.3-1.2); Blood Urea Nitrogen 70 mg/dL (9-23); Calcium 9.1 mg/dL (8.3-10.6); Calcium (Corrected) 9.3 mg/dL (8.5-10.1); Carbon Dioxide 25.4 mMol/L (20.0-31.0); Chloride 112 mMol/L (98-107); Estimated Creatinine Clearance 43.5 mL/min (>60); Globulin 3.1 gm/dL (2.3-3.5); Glucose 136 mg/dL (74-106); Osmolality,Calculated 314 (275-295); Potassium 4.1 mMol/L (3.4-5.1); Sodium 147 mMol/L (136-145); Total Protein 6.8 gm/dL (5.7-8.2); eGFR 42 See Note
[2025-01-09] MEDS: IPRATROPIUM RT 0.5 MG/ 2.5 ML NEBU INH ×4 (06:51→21:45)
[2025-01-09] MEDS: LEVALBUTEROL RT 1.25 MG/0.5 ML NEBU INH ×4 (06:51→21:45)
[2025-01-09] MEDS: MULTIVITAMIN 15 ML UDC PO (09:32)
[2025-01-09] MEDS: levETIRAcetam LIQD 500 MG/5 ML UDC 100 MG GT ×2 (09:32→20:49)
[2025-01-09] MEDS: PANTOPRAZOLE INJ 40 MG VIAL IVP (09:32)
[2025-01-09] MEDS: FLUDROCORTISONE ACETATE 0.1 MG TABLET GT ×2 (09:33→20:48)
[2025-01-09] MEDS: VIT B12/Vit C/FA (Nephrovite) TABLET 1 TAB PO (09:33)
[2025-01-09] MEDS: Silvasorb Gel 45 ML TUBE TOP (09:33)
[2025-01-09] MEDS: ENOXAPARIN SOD INJ 60 MG/0.6 ML SYRINGE SC ×2 (09:33→20:48)
--- NOTE | 2025-01-09 10:18 | PC.SS ---
rounding note: Patient is a resident of [facility] AT [place]. Plan is to return to facility. Pending blood cultures
[2025-01-09] MEDS: PHENYTOIN 100 MG/4 ML UDC 600 MG GT ×2 (11:32→20:49)
--- NOTE | 2025-01-09 12:48 | ESPR_ITS ---
<Statement entered by Khari Snider MD - 01/09/25 17:13> I have discussed and was present for the essential components of the history, physical examination, diagnosis, and treatment plan with the resident. I agree with the patient's care as documented by the resident and amended herein by me. Khari Snider MD FACP. Documentation for date of: 01/09/25 Subjective Subjective Interval history: Patient seen and examined this a.m. No events overnight. Patient looks well rested. Labs and imaging reviewed. Pending blood culture to speciate. Exam Vital Signs Temp Pulse Resp BP Pulse Ox O2 Del Method O2 Flow Rate 98.1 F 120 H 25 H 98/67 98 Mechanical Ventilation 40 01/09/25 12:00 01/09/25 12:00 01/09/25 12:00 01/09/25 12:00 01/09/25 12:00 01/09/25 12:00 01/09/25 12:00 FiO2 45 01/09/25 12:00 Narrative Exam PE: Gen: Chronically ill-appearing. HEENT: NCAT, MMM, anicteric conjunctivae. Tracheostomy to vent. CVS: normal S1 and S2. RRR. No M/R/G. Resp: CTA B/L. No rhonchi, rales, crackles or wheezing. Poor lung sounds due to low respiratory effort. Abd: soft, non-tender, non-distended. PEG tube. Nephrostomy tube. Suprapubic Lal cath. MSK: Bilateral lower extremity contractures. Dry flaky skin bilateral lower extremities. Neuro: Flexor posturing to noxious stimuli. Eyes open but does not track. Nonverbal. Objective Labs 01/09/25 05:10 01/09/25 05:10 Labs: Laboratory Results - last 24 hr 01/09/25 05:10 WBC 14.8 H RBC 3.16 L Hgb 9.5 L Hct 30.0 L MCV 95 MCH 30.1 MCHC 31.7 RDW Std Deviation 47.2 H Plt Count 339 D Neut % (Auto) 74 Lymph % (Auto) 10 [place] % (Auto) 5 Eos % (Auto) 11 H Baso % (Auto) 1 Neut # (Auto) 10.9 H Lymph # (Auto) 1.4 [place] # (Auto) 0.7 Eos # (Auto) 1.6 H Baso # (Auto) 0.1 Immature Gran # (Auto) 0.09 H Absolute Nucleated RBC 0.00 Immature Gran % 1 H Nucleated RBC % 0 Sodium 147 H Potassium 4.1 Chloride 112 H Carbon Dioxide 25.4 Anion Gap 10 BUN 70 H Creatinine 2.0 H Estim Creat Clear Calc 43.5 L eGFR 42 L BUN/Creatinine Ratio 35 H Glucose 136 H Calculated Osmolality 314 H Calcium 9.1 Corrected Calcium 9.3 Total Bilirubin 0.2 L AST 14 ALT 175 H Alkaline Phosphatase 258 H Total Protein 6.8 Albumin 3.7 Globulin 3.1 Albumin/Globulin Ratio 1.2 Random Vancomycin 18.0 ABG Interpretation ABG results: 01/05/25 19:43 ABG pH 7.39 ABG pCO2 40 ABG pO2 93 ABG HCO3 24 ABG O2 Saturation 98 ABG Base Excess -1 Quality Measures Quality Measures VTE prophylaxis Assessment & Plan Assessment Current Active Medications: Generic Name Dose Route Start Last Admin Trade Name Freq PRN Reason Stop Dose Admin Albuterol 2.5 mg 01/07/25 15:17 Albuterol Rt 2.5 Mg/0.5 Ml Nebu INH 02/06/25 14:58 Q6H PRN shortness of breath or wheezing Baclofen 5 mg 01/07/25 22:00 01/09/25 06:02 Baclofen 10 Mg Tablet PO 02/06/25 21:59 5 mg TID KIT Administration Gabapentin 250 Mg/5 0 ea 01/07/25 18:42 Ml Solution GT 02/06/25 18:41 Q8HR PRN HICCUPS Dextrose 25 ml 01/05/25 19:11 Dextrose 50%-Water Inj 50 Ml Syringe IV 02/04/25 19:10 Q15MIN PRN BG 50-70 responsive npo pt Dextrose 50 ml 01/05/25 19:11 Dextrose 50%-Water Inj 50 Ml Syringe IV 02/04/25 19:10 Q15MIN PRN BG <50 OR BG <70 & pt unresponsive Enoxaparin Sodium 60 mg 01/07/25 21:00 01/09/25 09:33 Enoxaparin Sod Inj 60 Mg/0.6 Ml Syringe SC 01/21/25 20:59 60 mg BID KIT Administration Fludrocortisone Acetate 0.1 mg 01/07/25 21:00 01/09/25 09:33 Fludrocortisone Acetate 0.1 Mg Tablet GT 02/06/25 20:59 0.1 mg BID KIT Administration Glucagon 1 mg 01/05/25 19:11 Glucagon Inj 1 Mg Vial IM Q15MIN PRN BG <70, and no IV access Piperacillin/Tazobactam/Dextrose 3.375 gm in 50 mls @ 12.5 mls/hr 01/05/25 22:00 01/09/25 06:03 Zosyn IV 01/12/25 21:59 12.5 mls/hr Q8HR KIT Administration Insulin Human Lispro 0 unit 01/06/25 06:00 01/09/25 05:59 Insulin Lispro (Admelog) 1 Unit/0.01 Ml Unit SC 02/05/25 05:59 Not Given Q6HR KIT Protocol Ipratropium [place] 0.5 mg 01/07/25 21:00 01/09/25 10:55 Ipratropium Rt 0.5 Mg/ 2.5 Ml Nebu INH 02/06/25 20:59 0.5 mg QIDRT KIT Administration Levalbuterol HCl 1.25 mg 01/07/25 21:00 01/09/25 10:55 Levalbuterol Rt 1.25 Mg/0.5 Ml Nebu INH 02/06/25 20:59 1.25 mg QIDRT KIT Administration Levetiracetam 100 mg 01/07/25 21:00 01/09/25 09:32 Levetiracetam Liqd 500 Mg/5 Ml Udc GT 02/06/25 20:59 100 mg BID KIT Administration Midodrine 10 mg 01/06/25 18:38 01/09/25 06:02 Midodrine 5 Mg Tablet PO 02/05/25 08:59 10 mg TID KIT Administration Multivitamins/Minerals 15 ml 01/08/25 09:00 01/09/25 09:32 Multivitamin 15 Ml Udc PO 02/07/25 08:59 15 ml QDAY KIT Administration Ondansetron HCl 4 mg 01/05/25 17:09 Ondansetron Inj 2 Mg/Ml Inj 2 Ml IV 02/04/25 17:08 Q6H PRN NAUSEA OR VOMITING Protocol Pantoprazole Sodium 40 mg 01/08/25 09:00 01/09/25 09:32 Pantoprazole Inj 40 Mg Vial IVP 02/07/25 08:59 40 mg QDAY KIT Administration Pharmacy Consult 1 each 01/05/25 13:15 Vancomycin Pharmacy To Dose 1 Each Each IV 02/04/25 13:14 QDAY PRN CONSULT Phenytoin 600 mg 01/07/25 21:00 01/09/25 11:32 Phenytoin 100 Mg/4 Ml Udc GT 02/06/25 20:59 600 mg BID KIT Administration Sodium Chloride 3 ml 01/07/25 17:55 Sodium Chloride Rt Lala 0.9% 3 Ml Nebu INH 02/06/25 17:54 PRN PRN SOLN Vitamin B Complex/Vit C/Folic Acid 1 tab 01/08/25 09:00 01/09/25 09:33 Vit B12/Vit C/Fa (Nephrovite) Tablet PO 02/07/25 08:59 1 tab QDAY KIT Administration Plan 39-year-old male with a past medical history of 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 Successfully weaned off pressors, downgrade to floors for further management. #Septic shock requiring pressor support-resolved #UTI #Pneumonia #Osteomyelitis of right ischium Sepsis is multifactorial with pneumonia and UA indicating UTI, multiple pressure ulcers, sacral osteomyelitis Chest x-ray revealed left-sided pneumonia, CT A/P showed osteomyelitis right ischium. WBC was elevated, lactic acid was 2.7, Pro-Chuck was severely elevated, patient was febrile Patient received significant IV fluids remained in shock, sent to ICU for pressor support. Patient titrated off pressors, blood pressure and stable and was downgraded to floors for further management. Blood cultures growing staph epi 1/2 bottles, probable contaminant. Urine and blood cultures final result pending. Sputum cultures pending. -Continue vancomycin and Zosyn (started 01/05) -Blood culture/urine culture final result pending -Sputum culture pending -Midodrine 10 mg 3 times daily -ID consulted, appreciate recommendations #GERD #Shock liver, severe transaminitis, improving AST 814, ALT 1105, ALP 413 on admission. Suspect shock liver in setting of septic shock. Patient received sepsis protocol fluid bolus. Transaminitis improving -Will follow-up with daily CMP -PPI IV for prophylaxis #Adrenal insufficiency, suspected Patient takes 0.1 mg fludrocortisone at twice daily at home, suspect due to history of adrenal sufficiency although not clearly documented. Would explain patient's significant hypotension and continued soft blood pressure. -Resume home meds: Fludrocortisone 0.1 mg GT twice daily #Obstructive uropathy #ELDON versus ELDON on CKD On presentation creatinine was 2.9, BUN 95, EGFR of 27. Patient received IV fluids, sepsis protocol. No previous labs to compare to. Renal function improving. -Continue close monitoring -Avoid nephrotoxic agent -Renally dose medication -Monitor MARILU's -Resume home tube feeds with water flushes #Seizure #Anoxic brain injury due to cardiac arrest, nonverbal Patient history as stated. Tracheostomy and PEG tube. -Resume home meds: Baclofen, Keppra, phenytoin #DM type II Home medications insulin. A1c 5%. -Insulin sliding scale -Hypoglycemic protocols in place -Restarted home tube feeding DVT prophylaxis: Heparin GI prophylaxis: PPI Diet: PEG tube feeds Lines: PIV, tracheostomy, suprapubic catheter, nephrostomy tube, PEG tube, CODE STATUS:Full code - Patient's care was discussed with my attending physician, Dr. Agatha Pate MD Internal Medicine PGY-3
[2025-01-10] VITALS (18 sets, daily range): BP systolic 104–121; BP diastolic 65–88; PULSE 105–126; RESP 16–27; TEMP 35.9–36.2; O2SAT 94–100
[2025-01-10] MEDS: PIPER/TAZO 3.375 GM PREMIX 3.375 GM/50 ML BAG IV ×3 (05:29→21:10)
[2025-01-10] MEDS: BACLOFEN 10 MG TABLET 5 MG PO ×3 (05:30→21:10)
[2025-01-10] MEDS: INSULIN LISPRO (AdmeLOG) 1 UNIT/0.01 ML UNIT SC ×3 (05:42→17:33)
[2025-01-10 06:11] LABS: Basophils # (Auto) 0.1 Thou/mm3 (0.0-0.2); Basophils % (Auto) 1 % (0-2.5); Eosinophils # (Auto) 1.4 Thou/mm3 (0.0-0.5); Eosinophils % (Auto) 8 % (0-10); Hematocrit 30.3 % (41.0-53.0); Hemoglobin 9.8 g/dL (13.5-16.0); Immature Granulocytes % (Auto) 1 % (0-0); Immature Granulocytes Auto 0.09 Thou/mm3 (0.00-0.00); Lymphocytes # (Auto) 1.3 Thou/mm3 (1.0-4.8); Lymphocytes % (Auto) 7 % (10-50); Mean Corpuscular HGB Conc 32.3 g/dl (31.0-37.0); Mean Corpuscular Hemoglobin 29.9 pg (25.0-35.0); Mean Corpuscular Volume 92 fL (80-100); Monocytes # (Auto) 0.9 Thou/mm3 (0.0-0.8); Monocytes % (Auto) 5 % (0-12); Neutrophils # (Auto) 13.7 Thou/mm3 (1.8-7.7); Neutrophils % (Auto) 79 % (37-80); Nucleated Red Blood Cell % 0 /100 WBC (0); Platelet Count 339 Thou/mm3 (140-440); RDW Standard Deviation 46.6 fL (35.1-43.9); Red Blood Count 3.28 Miln/mm3 (4.50-5.90); White Blood Count 17.4 Thou/mm3 (3.8-10.6)
[2025-01-10 06:17] LABS: Alanine Aminotransferase 129 U/L (10-49); Albumin, Serum 3.8 gm/dL (3.5-5.0); Albumin/Globulin Ratio 1.2 (1.2-2.2); Alkaline Phosphatase 267 U/L (46-116); Anion Gap 9 (7-16); Aspartate Amino Transferase 15 U/L (0-34); BUN/Creatinine Ratio 28 Ratio (12-20); Bilirubin,Total 0.2 mg/dL (0.3-1.2); Blood Urea Nitrogen 58 mg/dL (9-23); Calcium (Corrected) 9.2 mg/dL (8.5-10.1); Carbon Dioxide 24.6 mMol/L (20.0-31.0); Chloride 113 mMol/L (98-107); Creatinine (Component) 2.1 mg/dL (0.6-1.3); Estimated Creatinine Clearance 41.4 mL/min (>60); Globulin 3.3 gm/dL (2.3-3.5); Glucose 178 mg/dL (74-106); Osmolality,Calculated 312 (275-295); Potassium 3.8 mMol/L (3.4-5.1); Sodium 147 mMol/L (136-145); Total Protein 7.1 gm/dL (5.7-8.2); Vancomycin,Random 11.4 mcg/mL; eGFR 40 See Note
[2025-01-10] MEDS: IPRATROPIUM RT 0.5 MG/ 2.5 ML NEBU INH ×4 (06:38→22:28)
[2025-01-10] MEDS: LEVALBUTEROL RT 1.25 MG/0.5 ML NEBU INH ×4 (06:38→22:29)
[2025-01-10] MEDS: levETIRAcetam LIQD 500 MG/5 ML UDC 100 MG GT ×2 (09:06→20:45)
[2025-01-10] MEDS: MULTIVITAMIN 15 ML UDC PO (09:08)
[2025-01-10] MEDS: VIT B12/Vit C/FA (Nephrovite) TABLET 1 TAB PO (09:08)
[2025-01-10] MEDS: ENOXAPARIN SOD INJ 60 MG/0.6 ML SYRINGE SC ×2 (09:09→20:45)
[2025-01-10] MEDS: Silvasorb Gel 45 ML TUBE TOP (09:09)
[2025-01-10] MEDS: FLUDROCORTISONE ACETATE 0.1 MG TABLET GT ×2 (09:09→20:45)
[2025-01-10] MEDS: LANSOPRAZOLE 30 MG TAB.RAP.DR GT (09:09)
[2025-01-10] MEDS: VANCOMYCIN/NS 750 MG IVPB 750 MG/150 ML BAG 120 MG IV (09:47)
[2025-01-10] MEDS: PHENYTOIN IV ×2 (09:48→20:00)
[2025-01-10] MEDS: SODIUM CHLORIDE 0.9% IV ×2 (09:48→20:00)
--- NOTE | 2025-01-10 11:02 | ESPR_ITS ---
<Statement entered by Khari Snider MD - 01/11/25 10:34> I have discussed and was present for the essential components of the history, physical examination, diagnosis, and treatment plan with the resident. I agree with the patient's care as documented by the resident and amended herein by me. Khari Snider MD FACP. Documentation for date of: 01/10/25 Subjective Subjective Interval history: No overnight events. Patient seen examined at bedside. No significant changes, patient responds to tactile stimuli, remains nonverbal. Pending ID consult recommendations for antibiotics. WBCs uptrending, continue to monitor. Exam Vital Signs Temp Pulse Resp BP Pulse Ox O2 Del Method O2 Flow Rate 96.8 F 122 H 20 112/65 100 Mechanical Ventilation 40 01/10/25 08:00 01/10/25 10:21 01/10/25 10:21 01/10/25 08:00 01/10/25 10:21 01/10/25 08:00 01/10/25 08:00 FiO2 40 01/10/25 10:21 Narrative Exam PE: Gen: Chronically ill-appearing. HEENT: NCAT, MMM, anicteric conjunctivae. Tracheostomy to vent. CVS: normal S1 and S2. RRR. No M/R/G. Resp: CTA B/L. No rhonchi, rales, crackles or wheezing. Poor lung sounds due to low respiratory effort. Abd: soft, non-tender, non-distended. PEG tube. Nephrostomy tube. Suprapubic Lal cath. MSK: Bilateral lower extremity contractures. Dry flaky skin bilateral lower extremities. Neuro: Flexor posturing to noxious stimuli. Eyes open but does not track. Nonverbal. Objective Labs 01/10/25 04:54 01/10/25 04:54 Labs: Laboratory Results - last 24 hr 01/10/25 04:54 WBC 17.4 H RBC 3.28 L Hgb 9.8 L Hct 30.3 L MCV 92 MCH 29.9 MCHC 32.3 RDW Std Deviation 46.6 H Plt Count 339 Neut % (Auto) 79 Lymph % (Auto) 7 L [place] % (Auto) 5 Eos % (Auto) 8 Baso % (Auto) 1 Neut # (Auto) 13.7 H Lymph # (Auto) 1.3 [place] # (Auto) 0.9 H Eos # (Auto) 1.4 H Baso # (Auto) 0.1 Immature Gran # (Auto) 0.09 H Absolute Nucleated RBC 0.00 Immature Gran % 1 H Nucleated RBC % 0 Sodium 147 H Potassium 3.8 Chloride 113 H Carbon Dioxide 24.6 Anion Gap 9 BUN 58 H Creatinine 2.1 H Estim Creat Clear Calc 41.4 L eGFR 40 L BUN/Creatinine Ratio 28 H Glucose 178 H Calculated Osmolality 312 H Calcium 9.0 Corrected Calcium 9.2 Total Bilirubin 0.2 L AST 15 ALT 129 H Alkaline Phosphatase 267 H Total Protein 7.1 Albumin 3.8 Globulin 3.3 Albumin/Globulin Ratio 1.2 Random Vancomycin 11.4 ABG Interpretation ABG results: 01/05/25 19:43 ABG pH 7.39 ABG pCO2 40 ABG pO2 93 ABG HCO3 24 ABG O2 Saturation 98 ABG Base Excess -1 Quality Measures Quality Measures VTE prophylaxis Assessment & Plan Assessment Current Active Medications: Generic Name Dose Route Start Last Admin Trade Name Freq PRN Reason Stop Dose Admin Albuterol 2.5 mg 01/07/25 15:17 Albuterol Rt 2.5 Mg/0.5 Ml Nebu INH 02/06/25 14:58 Q6H PRN shortness of breath or wheezing Baclofen 5 mg 01/07/25 22:00 01/10/25 05:30 Baclofen 10 Mg Tablet PO 02/06/25 21:59 5 mg TID KIT Administration Gabapentin 250 Mg/5 0 ea 01/07/25 18:42 Ml Solution GT 02/06/25 18:41 Q8HR PRN HICCUPS Dextrose 25 ml 01/05/25 19:11 Dextrose 50%-Water Inj 50 Ml Syringe IV 02/04/25 19:10 Q15MIN PRN BG 50-70 responsive npo pt Dextrose 50 ml 01/05/25 19:11 Dextrose 50%-Water Inj 50 Ml Syringe IV 02/04/25 19:10 Q15MIN PRN BG <50 OR BG <70 & pt unresponsive Enoxaparin Sodium 60 mg 01/07/25 21:00 01/10/25 09:09 Enoxaparin Sod Inj 60 Mg/0.6 Ml Syringe SC 01/21/25 20:59 60 mg BID KIT Administration Fludrocortisone Acetate 0.1 mg 01/07/25 21:00 01/10/25 09:09 Fludrocortisone Acetate 0.1 Mg Tablet GT 02/06/25 20:59 0.1 mg BID KIT Administration Glucagon 1 mg 01/05/25 19:11 Glucagon Inj 1 Mg Vial IM Q15MIN PRN BG <70, and no IV access Piperacillin/Tazobactam/Dextrose 3.375 gm in 50 mls @ 12.5 mls/hr 01/05/25 22:00 01/10/25 05:29 Zosyn IV 01/12/25 21:59 12.5 mls/hr Q8HR KIT Administration Vancomycin/Sodium Chloride 750 mg in 150 mls @ 120 mls/hr 01/10/25 10:00 01/10/25 09:47 Vancomycin/Ns 750 Mg Ivpb IV 01/17/25 09:59 120 mls/hr DAILY@1000 KIT Administration Phenytoin Sodium 500 mg/ 60 mls @ 120 mls/hr 01/10/25 19:00 Sodium Chloride IV 01/10/25 19:29 BID KIT Insulin Human Lispro 0 unit 01/06/25 06:00 01/10/25 05:42 Insulin Lispro (Admelog) 1 Unit/0.01 Ml Unit SC 02/05/25 05:59 1 unit Q6HR KIT Administration Protocol Ipratropium [place] 0.5 mg 01/07/25 21:00 01/10/25 10:21 Ipratropium Rt 0.5 Mg/ 2.5 Ml Nebu INH 02/06/25 20:59 0.5 mg QIDRT KIT Administration Lansoprazole 30 mg 01/10/25 09:00 01/10/25 09:09 Lansoprazole 30 Mg Tab.Rap. GT 02/07/25 08:59 30 mg QDAY KIT Administration Levalbuterol HCl 1.25 mg 01/07/25 21:00 01/10/25 10:21 Levalbuterol Rt 1.25 Mg/0.5 Ml Nebu INH 02/06/25 20:59 1.25 mg QIDRT KIT Administration Levetiracetam 100 mg 01/07/25 21:00 01/10/25 09:06 Levetiracetam Liqd 500 Mg/5 Ml Udc GT 02/06/25 20:59 100 mg BID KIT Administration Midodrine 10 mg 01/06/25 18:38 01/10/25 05:17 Midodrine 5 Mg Tablet PO 02/05/25 08:59 Not Given TID KIT Multivitamins/Minerals 15 ml 01/08/25 09:00 01/10/25 09:08 Multivitamin 15 Ml Udc PO 02/07/25 08:59 15 ml QDAY KIT Administration Ondansetron HCl 4 mg 01/05/25 17:09 Ondansetron Inj 2 Mg/Ml Inj 2 Ml IV 02/04/25 17:08 Q6H PRN NAUSEA OR VOMITING Protocol Pharmacy Consult 1 each 01/05/25 13:15 Vancomycin Pharmacy To Dose 1 Each Each IV 02/04/25 13:14 QDAY PRN CONSULT Phenytoin 600 mg 01/07/25 21:00 01/10/25 09:02 Phenytoin 100 Mg/4 Ml Udc GT 02/06/25 20:59 Not Given BID KIT Sodium Chloride 3 ml 01/07/25 17:55 Sodium Chloride Rt Lala 0.9% 3 Ml Nebu INH 02/06/25 17:54 PRN PRN SOLN Vitamin B Complex/Vit C/Folic Acid 1 tab 01/08/25 09:00 01/10/25 09:08 Vit B12/Vit C/Fa (Nephrovite) Tablet PO 02/07/25 08:59 1 tab QDAY KIT Administration Plan 39-year-old male with a past medical history of 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 Successfully weaned off pressors, downgrade to floors for further management. #Septic shock requiring pressor support-resolved #UTI #Pneumonia #Osteomyelitis of right ischium Sepsis is multifactorial with pneumonia and UA indicating UTI, multiple pressure ulcers, sacral osteomyelitis Chest x-ray revealed left-sided pneumonia, CT A/P showed osteomyelitis right ischium. WBC was elevated, lactic acid was 2.7, Pro-Chuck was severely elevated, patient was febrile Patient received significant IV fluids remained in shock, sent to ICU for pressor support. Patient titrated off pressors, blood pressure and stable and was downgraded to floors for further management. Blood cultures growing staph epi 1/2 bottles, probable contaminant. Urine and blood cultures final result pending. Sputum cultures pending. Repeat blood cultures negative. Urine culture positive for ESBL Proteus, sensitive to Zosyn. Sputum culture grew Klebsiella and Proteus. -Continue vancomycin and Zosyn (started 01/05) -Midodrine 10 mg 3 times daily -ID consulted, appreciate recommendations #GERD #Shock liver, severe transaminitis, improving AST 814, ALT 1105, ALP 413 on admission. Suspect shock liver in setting of septic shock. Patient received sepsis protocol fluid bolus. Transaminitis improving -Will follow-up with daily CMP -PPI IV for prophylaxis #Adrenal insufficiency, suspected Patient takes 0.1 mg fludrocortisone at twice daily at home, suspect due to history of adrenal sufficiency although not clearly documented. Would explain patient's significant hypotension and continued soft blood pressure. -Resume home meds: Fludrocortisone 0.1 mg GT twice daily #Obstructive uropathy #ELDON versus ELDON on CKD On presentation creatinine was 2.9, BUN 95, EGFR of 27. Patient received IV fluids, sepsis protocol. No previous labs to compare to. Renal function improving. -Continue close monitoring -Avoid nephrotoxic agent -Renally dose medication -Monitor MARILU's -Resume home tube feeds with water flushes #Seizure #Anoxic brain injury due to cardiac arrest, nonverbal Patient history as stated. Tracheostomy and PEG tube. -Resume home meds: Baclofen, Keppra, phenytoin #DM type II Home medications insulin. A1c 5%. -Insulin sliding scale -Hypoglycemic protocols in place -Restarted home tube feeding DVT prophylaxis: Heparin GI prophylaxis: PPI Diet: PEG tube feeds Lines: PIV, tracheostomy, suprapubic catheter, nephrostomy tube, PEG tube, CODE STATUS:Full code Plan of care discussed with attending Dr. Snider. James Crespo MD PGY?1
--- NOTE | 2025-01-10 11:15 | CHAP ---
Patient was visited by the Spiritual Care Volunteer who prayed for them. (Volunteer was in the hospital from 10:15-11:15)
[2025-01-10] MEDS: MIDODRINE 5 MG TABLET 10 MG PO ×2 (14:21→21:10)
[2025-01-11] VITALS (21 sets, daily range): BP systolic 100–110; BP diastolic 51–88; PULSE 79–108; RESP 10–26; TEMP 35.9–36.4; O2SAT 90–100; BMI 21.7
[2025-01-11] MEDS: MIDODRINE 5 MG TABLET 10 MG PO ×3 (05:21→21:05)
[2025-01-11] MEDS: BACLOFEN 10 MG TABLET 5 MG PO ×3 (05:21→21:05)
[2025-01-11] MEDS: PIPER/TAZO 3.375 GM PREMIX 3.375 GM/50 ML BAG IV ×3 (05:21→21:05)
[2025-01-11] MEDS: IPRATROPIUM RT 0.5 MG/ 2.5 ML NEBU INH ×4 (06:20→21:39)
[2025-01-11] MEDS: LEVALBUTEROL RT 1.25 MG/0.5 ML NEBU INH ×4 (06:20→21:39)
[2025-01-11 06:25] LABS: Basophils # (Auto) 0.1 Thou/mm3 (0.0-0.2); Basophils % (Auto) 1 % (0-2.5); Eosinophils # (Auto) 2.5 Thou/mm3 (0.0-0.5); Eosinophils % (Auto) 14 % (0-10); Hematocrit 31.1 % (41.0-53.0); Hemoglobin 9.7 g/dL (13.5-16.0); Immature Granulocytes % (Auto) 1 % (0-0); Immature Granulocytes Auto 0.19 Thou/mm3 (0.00-0.00); Lymphocytes # (Auto) 2.7 Thou/mm3 (1.0-4.8); Lymphocytes % (Auto) 15 % (10-50); Mean Corpuscular HGB Conc 31.2 g/dl (31.0-37.0); Mean Corpuscular Hemoglobin 29.9 pg (25.0-35.0); Mean Corpuscular Volume 96 fL (80-100); Monocytes % (Auto) 5 % (0-12); Neutrophils # (Auto) 11.3 Thou/mm3 (1.8-7.7); Neutrophils % (Auto) 64 % (37-80); Nucleated Red Blood Cell % 0 /100 WBC (0); Platelet Count 379 Thou/mm3 (140-440); RDW Standard Deviation 48.6 fL (35.1-43.9); Red Blood Count 3.24 Miln/mm3 (4.50-5.90); White Blood Count 17.8 Thou/mm3 (3.8-10.6)
[2025-01-11 07:01] LABS: Alanine Aminotransferase 86 U/L (10-49); Albumin, Serum 3.8 gm/dL (3.5-5.0); Albumin/Globulin Ratio 1.2 (1.2-2.2); Alkaline Phosphatase 251 U/L (46-116); Anion Gap 12 (7-16); Aspartate Amino Transferase 12 U/L (0-34); BUN/Creatinine Ratio 29 Ratio (12-20); Bilirubin,Total 0.2 mg/dL (0.3-1.2); Blood Urea Nitrogen 61 mg/dL (9-23); Calcium 9.2 mg/dL (8.3-10.6); Calcium (Corrected) 9.4 mg/dL (8.5-10.1); Carbon Dioxide 24.4 mMol/L (20.0-31.0); Chloride 111 mMol/L (98-107); Creatinine (Component) 2.1 mg/dL (0.6-1.3); Estimated Creatinine Clearance 40.1 mL/min (>60); Globulin 3.3 gm/dL (2.3-3.5); Glucose 175 mg/dL (74-106); Osmolality,Calculated 313 (275-295); Potassium 3.5 mMol/L (3.4-5.1); Sodium 147 mMol/L (136-145); Total Protein 7.1 gm/dL (5.7-8.2); eGFR 40 See Note
--- NOTE | 2025-01-11 08:54 | PC.SS ---
Rounding: Pending ID reccs for possible PICCLINE for IV ABX Course
--- NOTE | 2025-01-11 09:13 | ESPR_ITS ---
Subjective Subjective Interval history: we do not have good micro on the du. urine may be contaminated given chronic catheter use. Exam Vital Signs Temp Pulse Resp BP Pulse Ox O2 Del Method O2 Flow Rate 97.2 F 108 H 17 110/72 90 L Mechanical Ventilation 40 01/11/25 08:00 01/11/25 08:00 01/11/25 08:00 01/11/25 08:00 01/11/25 08:00 01/11/25 08:00 01/11/25 08:00 FiO2 40 01/11/25 08:00 Narrative Exam limite eval. note that wound cx with neg gram stain Objective - Internal Medicine Labs 01/11/25 05:37 01/11/25 05:37 Labs: Laboratory Results - last 24 hr 01/11/25 05:37 WBC 17.8 H RBC 3.24 L Hgb 9.7 L Hct 31.1 L MCV 96 MCH 29.9 MCHC 31.2 RDW Std Deviation 48.6 H Plt Count 379 D Neut % (Auto) 64 Lymph % (Auto) 15 [place] % (Auto) 5 Eos % (Auto) 14 H Baso % (Auto) 1 Neut # (Auto) 11.3 H Lymph # (Auto) 2.7 [place] # (Auto) 1.0 H Eos # (Auto) 2.5 H Baso # (Auto) 0.1 Immature Gran # (Auto) 0.19 H Absolute Nucleated RBC 0.00 Immature Gran % 1 H Nucleated RBC % 0 Sodium 147 H Potassium 3.5 Chloride 111 H Carbon Dioxide 24.4 Anion Gap 12 BUN 61 H Creatinine 2.1 H Estim Creat Clear Calc 40.1 L eGFR 40 L BUN/Creatinine Ratio 29 H Glucose 175 H Calculated Osmolality 313 H Calcium 9.2 Corrected Calcium 9.4 Total Bilirubin 0.2 L AST 12 ALT 86 H Alkaline Phosphatase 251 H Total Protein 7.1 Albumin 3.8 Globulin 3.3 Albumin/Globulin Ratio 1.2 ABG Interpretation ABG results: 01/05/25 19:43 ABG pH 7.39 ABG pCO2 40 ABG pO2 93 ABG HCO3 24 ABG O2 Saturation 98 ABG Base Excess -1 Assessment & Plan A&P Narrative bacteremia probably a contaminant bacteriuria ua not striking but not normal du with apparent osteo. du's will not improve unless pressure avoidance is imposed. abx only kill germs, they do not heal wounds. anoxic brain injury obstructive uropathy. full code with other health problems at 39 yoa. with anoxic brain injury no objection if he is made hospice empiric abx rx ok for now. will see again Saturday you can start the pressure avoidance strategies for the du if family makes him hospice. that is ok with me. try to get old records on him if you can. will review again Saturday. since all we have is the esbl from wound, and no staph, ok to stop vanco and if you want to give ertapenem 1 gm iv daily for remainder of 6 weeks, that is ok but note that abx only kill germs, so if pressure avoidance not imposed, this will not improve. based on micro, zosyn will also work but requires more daily doses. Time Spent With Patient Time: Total time spent is greater than 50% in coordination of care (as documented) at patient's floor/unit and/or counseling patient:
--- NOTE | 2025-01-11 09:17 | PD.ADDPROG ---
Addendum Progress Note Addendum Date of report being addended: 01/11/25 Narrative: he does not appear to have pneumonia and has finished 7d of empiric zosyn for the pseudomonas in sputum anyway
[2025-01-11] MEDS: ENOXAPARIN SOD INJ 60 MG/0.6 ML SYRINGE SC ×2 (09:31→20:07)
[2025-01-11] MEDS: levETIRAcetam LIQD 500 MG/5 ML UDC 100 MG GT ×2 (09:31→20:06)
[2025-01-11] MEDS: Silvasorb Gel 45 ML TUBE TOP (09:32)
[2025-01-11] MEDS: MULTIVITAMIN 15 ML UDC PO (09:32)
[2025-01-11] MEDS: FLUDROCORTISONE ACETATE 0.1 MG TABLET GT ×2 (09:32→20:06)
[2025-01-11] MEDS: VIT B12/Vit C/FA (Nephrovite) TABLET 1 TAB PO (09:32)
[2025-01-11] MEDS: LANSOPRAZOLE 30 MG TAB.RAP.DR GT (09:32)
[2025-01-11] MEDS: PHENYTOIN 100 MG/4 ML UDC 600 MG GT ×2 (10:13→20:06)
--- NOTE | 2025-01-11 12:12 | PC.SS ---
SS spoke to Ellen at [facility] at the [facility] [phone] in regards to poss DC today. Pt is pending a PICCLINE for 6 week course of IV ABX Ertapenem 1g Qday. Per Ellen send updated clinicals to #[phone] and she will update ELIZABETH Srivastava.
--- NOTE | 2025-01-11 13:35 | ESPR_ITS ---
<Statement entered by Mily Buenrostro MD - 01/11/25 18:03> Patient seen and examined at bedside. No acute overnight events reported. ID recommended to start patient on ertapenem for osteomyelitis treatment for total of 6 weeks. Will plan to obtain consent from patient's and for PICC line procedure, and anticipate discharge within 24 to 48 hours. Patient received a total of 7 days of IV Zosyn. I discussed with and supervised the internal medicine specialist physician who took care of this patient. I personally saw and examined the patient and discussed the assessment and plan with the entire medicine team, including my attending Dr. Moore, I agree with most of the assessment and plan as documented below Mily Buenrostro M.D. PGY-2 Documentation for date of: 01/11/25 Subjective Subjective Interval history: No overnight events. Patient seen examined at bedside, resting comfortably. No significant changes. Plan to place PICC line, start ertapenem for full course of osteomyelitis treatment. Exam Vital Signs Temp Pulse Resp BP Pulse Ox O2 Del Method O2 Flow Rate 97.1 F 100 16 101/73 96 Mechanical Ventilation 40 01/11/25 12:00 01/11/25 13:29 01/11/25 12:00 01/11/25 12:00 01/11/25 13:29 01/11/25 12:00 01/11/25 12:00 FiO2 40 01/11/25 13:29 Narrative Exam PE: Gen: Chronically ill-appearing. HEENT: NCAT, MMM, anicteric conjunctivae. Tracheostomy to vent. CVS: normal S1 and S2. RRR. No M/R/G. Resp: CTA B/L. No rhonchi, rales, crackles or wheezing. Poor lung sounds due to low respiratory effort. Abd: soft, non-tender, non-distended. PEG tube. Nephrostomy tube. Suprapubic Lal cath. MSK: Bilateral lower extremity contractures. Dry flaky skin bilateral lower extremities. Neuro: Flexor posturing to noxious stimuli. Eyes open but does not track. Nonverbal. Objective Labs 01/11/25 05:37 01/11/25 05:37 Labs: Laboratory Results - last 24 hr 01/11/25 05:37 WBC 17.8 H RBC 3.24 L Hgb 9.7 L Hct 31.1 L MCV 96 MCH 29.9 MCHC 31.2 RDW Std Deviation 48.6 H Plt Count 379 D Neut % (Auto) 64 Lymph % (Auto) 15 [place] % (Auto) 5 Eos % (Auto) 14 H Baso % (Auto) 1 Neut # (Auto) 11.3 H Lymph # (Auto) 2.7 [place] # (Auto) 1.0 H Eos # (Auto) 2.5 H Baso # (Auto) 0.1 Immature Gran # (Auto) 0.19 H Absolute Nucleated RBC 0.00 Immature Gran % 1 H Nucleated RBC % 0 Sodium 147 H Potassium 3.5 Chloride 111 H Carbon Dioxide 24.4 Anion Gap 12 BUN 61 H Creatinine 2.1 H Estim Creat Clear Calc 40.1 L eGFR 40 L BUN/Creatinine Ratio 29 H Glucose 175 H Calculated Osmolality 313 H Calcium 9.2 Corrected Calcium 9.4 Total Bilirubin 0.2 L AST 12 ALT 86 H Alkaline Phosphatase 251 H Total Protein 7.1 Albumin 3.8 Globulin 3.3 Albumin/Globulin Ratio 1.2 ABG Interpretation ABG results: 01/05/25 19:43 ABG pH 7.39 ABG pCO2 40 ABG pO2 93 ABG HCO3 24 ABG O2 Saturation 98 ABG Base Excess -1 Quality Measures Quality Measures VTE prophylaxis Assessment & Plan Assessment Current Active Medications: Generic Name Dose Route Start Last Admin Trade Name Freq PRN Reason Stop Dose Admin Albuterol 2.5 mg 01/07/25 15:17 Albuterol Rt 2.5 Mg/0.5 Ml Nebu INH 02/06/25 14:58 Q6H PRN shortness of breath or wheezing Baclofen 5 mg 01/07/25 22:00 01/11/25 05:21 Baclofen 10 Mg Tablet PO 02/06/25 21:59 5 mg TID KIT Administration Gabapentin 250 Mg/5 0 ea 01/07/25 18:42 Ml Solution GT 02/06/25 18:41 Q8HR PRN HICCUPS Dextrose 25 ml 01/05/25 19:11 Dextrose 50%-Water Inj 50 Ml Syringe IV 02/04/25 19:10 Q15MIN PRN BG 50-70 responsive npo pt Dextrose 50 ml 01/05/25 19:11 Dextrose 50%-Water Inj 50 Ml Syringe IV 02/04/25 19:10 Q15MIN PRN BG <50 OR BG <70 & pt unresponsive Enoxaparin Sodium 60 mg 01/07/25 21:00 01/11/25 09:31 Enoxaparin Sod Inj 60 Mg/0.6 Ml Syringe SC 01/21/25 20:59 60 mg BID KIT Administration Fludrocortisone Acetate 0.1 mg 01/07/25 21:00 01/11/25 09:32 Fludrocortisone Acetate 0.1 Mg Tablet GT 02/06/25 20:59 0.1 mg BID KIT Administration Glucagon 1 mg 01/05/25 19:11 Glucagon Inj 1 Mg Vial IM Q15MIN PRN BG <70, and no IV access Piperacillin/Tazobactam/Dextrose 3.375 gm in 50 mls @ 12.5 mls/hr 01/05/25 22:00 01/11/25 05:21 Zosyn IV 01/12/25 21:59 12.5 mls/hr Q8HR KIT Administration Insulin Human Lispro 0 unit 01/06/25 06:00 01/11/25 05:18 Insulin Lispro (Admelog) 1 Unit/0.01 Ml Unit SC 02/05/25 05:59 Not Given Q6HR [facility] Protocol Ipratropium [place] 0.5 mg 01/07/25 21:00 01/11/25 10:39 Ipratropium Rt 0.5 Mg/ 2.5 Ml Nebu INH 02/06/25 20:59 0.5 mg QIDRT KIT Administration Lansoprazole 30 mg 01/10/25 09:00 01/11/25 09:32 Lansoprazole 30 Mg Tab.Rap. GT 02/07/25 08:59 30 mg QDAY KIT Administration Levalbuterol HCl 1.25 mg 01/07/25 21:00 01/11/25 10:39 Levalbuterol Rt 1.25 Mg/0.5 Ml Nebu INH 02/06/25 20:59 1.25 mg QIDRT KIT Administration Levetiracetam 100 mg 01/07/25 21:00 01/11/25 09:31 Levetiracetam Liqd 500 Mg/5 Ml Udc GT 02/06/25 20:59 100 mg BID KIT Administration Midodrine 10 mg 01/06/25 18:38 01/11/25 05:21 Midodrine 5 Mg Tablet PO 02/05/25 08:59 10 mg TID KIT Administration Multivitamins/Minerals 15 ml 01/08/25 09:00 01/11/25 09:32 Multivitamin 15 Ml Udc PO 02/07/25 08:59 15 ml QDAY KIT Administration Ondansetron HCl 4 mg 01/05/25 17:09 Ondansetron Inj 2 Mg/Ml Inj 2 Ml IV 02/04/25 17:08 Q6H PRN NAUSEA OR VOMITING Protocol Phenytoin 600 mg 01/07/25 21:00 01/11/25 10:13 Phenytoin 100 Mg/4 Ml Udc GT 02/06/25 20:59 600 mg BID KIT Administration Sodium Chloride 3 ml 01/07/25 17:55 Sodium Chloride Rt [place] 0.9% 3 Ml Nebu INH 02/06/25 17:54 PRN PRN SOLN Vitamin B Complex/Vit C/Folic Acid 1 tab 01/08/25 09:00 01/11/25 09:32 Vit B12/Vit C/Fa (Nephrovite) Tablet PO 02/07/25 08:59 1 tab QDAY KIT Administration Plan 39-year-old male with a past medical history of 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 Successfully weaned off pressors, downgrade to floors for further management. #Septic shock requiring pressor support-resolved #UTI #Pneumonia #Osteomyelitis of right ischium Sepsis is multifactorial with pneumonia and UA indicating UTI, multiple pressure ulcers, sacral osteomyelitis Chest x-ray revealed left-sided pneumonia, CT A/P showed osteomyelitis right ischium. WBC was elevated, lactic acid was 2.7, Pro-Chuck was severely elevated, patient was febrile Patient received significant IV fluids remained in shock, sent to ICU for pressor support. Patient titrated off pressors, blood pressure and stable and was downgraded to floors for further management. Blood cultures growing staph epi 1/2 bottles, probable contaminant. Urine and blood cultures final result pending. Sputum cultures pending. Repeat blood cultures negative. Urine culture positive for ESBL Proteus, sensitive to Zosyn. Sputum culture grew Klebsiella and Proteus. Vancomycin and Zosyn (started 01/05). Changed to ertapenem for full 6-week course of osteomyelitis treatment per ID recs. -Ertapenem 1 g IV daily (until 02/16/2025) -Midodrine 10 mg 3 times daily -ID consulted, appreciate recommendations -PICC line placement pending #GERD #Shock liver, severe transaminitis, improving AST 814, ALT 1105, ALP 413 on admission. Suspect shock liver in setting of septic shock. Patient received sepsis protocol fluid bolus. Transaminitis improving -Will follow-up with daily CMP -PPI IV for prophylaxis #Adrenal insufficiency, suspected Patient takes 0.1 mg fludrocortisone at twice daily at home, suspect due to history of adrenal sufficiency although not clearly documented. Would explain patient's significant hypotension and continued soft blood pressure. -Resume home meds: Fludrocortisone 0.1 mg GT twice daily #Obstructive uropathy #ELDON versus ELDON on CKD On presentation creatinine was 2.9, BUN 95, EGFR of 27. Patient received IV fluids, sepsis protocol. No previous labs to compare to. Renal function improving. -Continue close monitoring -Avoid nephrotoxic agent -Renally dose medication -Monitor MARILU's -Resume home tube feeds with water flushes #Seizure #Anoxic brain injury due to cardiac arrest, nonverbal Patient history as stated. Tracheostomy and PEG tube. -Resume home meds: Baclofen, Keppra, phenytoin #DM type II Home medications insulin. A1c 5%. -Insulin sliding scale -Hypoglycemic protocols in place -Restarted home tube feeding DVT prophylaxis: Heparin GI prophylaxis: PPI Diet: PEG tube feeds Lines: PIV, tracheostomy, suprapubic catheter, nephrostomy tube, PEG tube, CODE STATUS:Full code Plan of care discussed with senior resident Dr. Buenrostro PGY?[address] Moore. James Crespo MD PGY?1 Attending Provider Attestation/Addendum I have discussed and was present for the essential components of the history, physical examination, diagnosis, and treatment plan with the resident. I agree with the patient's care as documented by the resident and amended herein by me. Dante Moore DO. Patient seen and evaluated this AM. Vital signs stable, patient afebrile, no acute events overnight. PICC line has been ordered, patient will complete a total 6-week course of ertapenem 1 g daily per infectious disease recommendations. Likely discharge tomorrow 01/12 pending establishment of home health and the patient received a PICC line. Although this document has been carefully reviewed, there may still be some phonetic and other typographical errors. These errors are purely grammatical due to imperfections in the software program and should not be construed in any way to compromise the substance of the patient's medical care during this visit.
--- NOTE | 2025-01-11 14:31 | PC.NURSE ---
patient scheduled for picc line insertion, unable to obtain consent. aunt Dee Smith [phone] called, no answer. Also tried calling mother with no answer. picc line postponed at this time
[2025-01-12] VITALS (26 sets, daily range): BP systolic 98–110; BP diastolic 60–82; PULSE 81–120; RESP 11–28; TEMP 36.1–36.4; O2SAT 91–100; BMI 21.7
[2025-01-12] MEDS: PIPER/TAZO 3.375 GM PREMIX 3.375 GM/50 ML BAG IV (05:31)
[2025-01-12] MEDS: BACLOFEN 10 MG TABLET 5 MG PO ×3 (05:31→21:35)
[2025-01-12] MEDS: MIDODRINE 5 MG TABLET 10 MG PO ×3 (05:32→21:35)
[2025-01-12] MEDS: IPRATROPIUM RT 0.5 MG/ 2.5 ML NEBU INH ×4 (06:14→18:40)
[2025-01-12] MEDS: LEVALBUTEROL RT 1.25 MG/0.5 ML NEBU INH ×4 (06:14→18:40)
[2025-01-12 06:15] LABS: Basophils # (Auto) 0.1 Thou/mm3 (0.0-0.2); Basophils % (Auto) 1 % (0-2.5); Eosinophils # (Auto) 2.5 Thou/mm3 (0.0-0.5); Eosinophils % (Auto) 17 % (0-10); Hematocrit 31.2 % (41.0-53.0); Hemoglobin 9.8 g/dL (13.5-16.0); Immature Granulocytes % (Auto) 1 % (0-0); Immature Granulocytes Auto 0.16 Thou/mm3 (0.00-0.00); Lymphocytes # (Auto) 2.5 Thou/mm3 (1.0-4.8); Lymphocytes % (Auto) 17 % (10-50); Mean Corpuscular HGB Conc 31.4 g/dl (31.0-37.0); Mean Corpuscular Hemoglobin 29.8 pg (25.0-35.0); Mean Corpuscular Volume 95 fL (80-100); Monocytes # (Auto) 0.7 Thou/mm3 (0.0-0.8); Monocytes % (Auto) 5 % (0-12); Neutrophils # (Auto) 9.1 Thou/mm3 (1.8-7.7); Neutrophils % (Auto) 60 % (37-80); Nucleated Red Blood Cell % 0 /100 WBC (0); Platelet Count 400 Thou/mm3 (140-440); RDW Standard Deviation 49.1 fL (35.1-43.9); Red Blood Count 3.29 Miln/mm3 (4.50-5.90); White Blood Count 15.1 Thou/mm3 (3.8-10.6)
[2025-01-12 06:42] LABS: Alanine Aminotransferase 63 U/L (10-49); Albumin, Serum 3.9 gm/dL (3.5-5.0); Albumin/Globulin Ratio 1.2 (1.2-2.2); Alkaline Phosphatase 216 U/L (46-116); Anion Gap 9 (7-16); Aspartate Amino Transferase 11 U/L (0-34); BUN/Creatinine Ratio 28 Ratio (12-20); Bilirubin,Total < 0.2 mg/dL (0.3-1.2); Blood Urea Nitrogen 53 mg/dL (9-23); Calcium 9.2 mg/dL (8.3-10.6); Calcium (Corrected) 9.3 mg/dL (8.5-10.1); Carbon Dioxide 25.6 mMol/L (20.0-31.0); Chloride 111 mMol/L (98-107); Creatinine (Component) 1.9 mg/dL (0.6-1.3); Estimated Creatinine Clearance 44.3 mL/min (>60); Globulin 3.2 gm/dL (2.3-3.5); Glucose 113 mg/dL (74-106); Magnesium 2.5 mg/dL (1.6-2.6); Osmolality,Calculated 305 (275-295); Phosphorous 4.2 mg/dL (2.4-5.1); Potassium 3.8 mMol/L (3.4-5.1); Sodium 146 mMol/L (136-145); Total Protein 7.1 gm/dL (5.7-8.2); eGFR 45 See Note
[2025-01-12] MEDS: ENOXAPARIN SOD INJ 60 MG/0.6 ML SYRINGE SC ×2 (10:02→20:42)
[2025-01-12] MEDS: MULTIVITAMIN 15 ML UDC PO (10:03)
[2025-01-12] MEDS: LANSOPRAZOLE 30 MG TAB.RAP.DR GT (10:03)
[2025-01-12] MEDS: levETIRAcetam LIQD 500 MG/5 ML UDC 100 MG GT ×2 (10:03→20:43)
[2025-01-12] MEDS: VIT B12/Vit C/FA (Nephrovite) TABLET 1 TAB PO (10:03)
[2025-01-12] MEDS: PHENYTOIN 100 MG/4 ML UDC 600 MG GT ×2 (10:03→20:43)
[2025-01-12] MEDS: FLUDROCORTISONE ACETATE 0.1 MG TABLET GT ×2 (10:03→20:43)
[2025-01-12] MEDS: ERTAPENEM INJ 1,000 MG in SODIUM CHLORIDE 0.9% (Popper) 50 ML 100 MG IV (10:37)
--- NOTE | 2025-01-12 10:53 | PC.SS ---
Addendum entered by Courtney Claire 01/12/25 12:25: Physician team states patient is down getting picc line but SS contacted nursing and patient has not left yet for picc. SS had prearranged gurney transport for 4p.m. However, this may need to be cancelled. SS is also coordinating with [facility] and they may not have staffing for a later evening d/c. SS will follow up with floor nurse who has been updated. Original Note: Follow up note: SS clarified with physician team that patient still does not have picc line placed. If patient gets this placed in time, he can be discharged back to [facility]. SS confirmed with staff at facility they are aware.
[2025-01-12] MEDS: INSULIN LISPRO (AdmeLOG) 1 UNIT/0.01 ML UNIT SC (11:47)
[2025-01-12] MEDS: LIDOCAINE INJ PF 1% 30 ML VIAL INFL (15:10)
[2025-01-12] MEDS: HEPARIN SOD LOCK SYR 100 UNIT/ML 500 UNIT STFIELD (15:10)
--- NOTE | 2025-01-12 15:28 | XR_ITS ---
Examination: Venous duplex lower extremity sonogram, bilateral. Date and time of exam: January 12, 2025 1605 hours INDICATIONS: Assess vein patency 4 PICC line Technique: Multiple sonographic images of the deep venous system have been obtained. B-mode/2-D grayscale imaging of vascular structures and Doppler spectral analysis (waveforms) and color performed Both legs are examined. Findings: Positive for thrombus involving the right cephalic right brachial veins Radial and ulnar veins are open Left upper extremity venous system appears open IMPRESSION: Positive for thrombus involving the right cephalic and right brachial veins
[2025-01-12] MEDS: Silvasorb Gel 45 ML TUBE TOP (17:57)
--- NOTE | 2025-01-12 18:27 | ESPR_ITS ---
Documentation for date of: 01/12/25 Senior resident attestation: Patient is a 39-year-old male, past medical history of anoxic brain injury, chronically trached and pegged, suprapubic catheter and nephrostomy due to obstructive uropathy with bilateral upper extremity DVT, admitted for septic shock secondary to UTI and pneumonia. Problems: #Right upper extremity DVT?venous Doppler showed positive thrombus involving the right cephalic and right brachial veins, left upper extremity venous system appears open. The patient had history of bilateral upper extremity DVT diagnosed on 12/10/2024 at [facility], currently on treatment with Lovenox twice daily. Attempted to place a PICC line for continued antibiotic treatment was unsuccessful. Will continue with anticoagulation. #UTI?secondary to ESBL Proteus, was sensitive to Zosyn and ertapenem. #Healthcare associated pneumonia?sputum cultures grew Pseudomonas, Proteus and Klebsiella, completed 7 days of IV antibiotics Zosyn. #Osteomyelitis of right ischium?infectious disease on board, recommended continuing ertapenem 1 g daily through 02/16/2025, urine culture positive for ESBL Proteus also sensitive to ertapenem. Unable to place a PICC line due to poor venous access, will reach out to ID for alternate antibiotics, as microbiology of pathogen sensitive to Augmentin which can be given via G-tube. Also concern for decubitus pressure induced ulcer, with superimposed osteomyelitis. #Shock liver?improving #Obstructive uropathy?improving BUN and creatinine, BUN still persistently high in the 50s, likely secondary to dehydration, also hyperosmolar and mild hypernatremia. Patient evaluated and examined at the bedside, plan of care discussed with rest of the team including my attending physician, except as noted. Qubipin PGY2 Subjective Subjective Interval history: No overnight events. Patient seen examined at bedside, no changes. Patient does not appear to be in any distress. PICC line unable to be placed due to bilateral upper extremity DVTs. Will reassess possible interventions tomorrow. Exam Vital Signs Temp Pulse Resp BP Pulse Ox O2 Del Method O2 Flow Rate 97.4 F 112 H 16 110/68 100 Mechanical Ventilation 50 01/12/25 11:35 01/12/25 17:56 01/12/25 15:58 01/12/25 17:56 01/12/25 15:58 01/12/25 15:30 01/12/25 15:30 FiO2 40 01/12/25 16:00 Narrative Exam PE: Gen: Chronically ill-appearing. HEENT: NCAT, MMM, anicteric conjunctivae. Tracheostomy to vent. CVS: normal S1 and S2. RRR. No M/R/G. Resp: CTA B/L. No rhonchi, rales, crackles or wheezing. Poor lung sounds due to low respiratory effort. Abd: soft, non-tender, non-distended. PEG tube. Nephrostomy tube. Suprapubic Lal cath. MSK: Bilateral lower extremity contractures. Dry flaky skin bilateral lower extremities. Neuro: Flexor posturing to noxious stimuli. Eyes open but does not track. Nonverbal. Objective Labs 01/13/25 04:55 01/13/25 04:55 Labs: Laboratory Results - last 24 hr 01/12/25 05:17 WBC 15.1 H RBC 3.29 L Hgb 9.8 L Hct 31.2 L MCV 95 MCH 29.8 MCHC 31.4 RDW Std Deviation 49.1 H Plt Count 400 Neut % (Auto) 60 Lymph % (Auto) 17 [place] % (Auto) 5 Eos % (Auto) 17 H Baso % (Auto) 1 Neut # (Auto) 9.1 H Lymph # (Auto) 2.5 [place] # (Auto) 0.7 Eos # (Auto) 2.5 H Baso # (Auto) 0.1 Immature Gran # (Auto) 0.16 H Absolute Nucleated RBC 0.00 Immature Gran % 1 H Nucleated RBC % 0 Sodium 146 H Potassium 3.8 Chloride 111 H Carbon Dioxide 25.6 Anion Gap 9 BUN 53 H Creatinine 1.9 H Estim Creat Clear Calc 44.3 L eGFR 45 L BUN/Creatinine Ratio 28 H Glucose 113 H D Calculated Osmolality 305 H Calcium 9.2 Corrected Calcium 9.3 Phosphorus 4.2 Magnesium 2.5 Total Bilirubin < 0.2 L AST 11 ALT 63 H Alkaline Phosphatase 216 H D Total Protein 7.1 Albumin 3.9 Globulin 3.2 Albumin/Globulin Ratio 1.2 ABG Interpretation ABG results: 01/05/25 19:43 ABG pH 7.39 ABG pCO2 40 ABG pO2 93 ABG HCO3 24 ABG O2 Saturation 98 ABG Base Excess -1 Quality Measures Quality Measures VTE prophylaxis Assessment & Plan Assessment Current Active Medications: Generic Name Dose Route Start Last Admin Trade Name Freq PRN Reason Stop Dose Admin Albuterol 2.5 mg 01/07/25 15:17 Albuterol Rt 2.5 Mg/0.5 Ml Nebu INH 02/06/25 14:58 Q6H PRN shortness of breath or wheezing Baclofen 5 mg 01/07/25 22:00 01/12/25 17:56 Baclofen 10 Mg Tablet PO 02/06/25 21:59 5 mg TID KIT Administration Gabapentin 250 Mg/5 0 ea 01/07/25 18:42 Ml Solution GT 02/06/25 18:41 Q8HR PRN HICCUPS Dextrose 25 ml 01/05/25 19:11 Dextrose 50%-Water Inj 50 Ml Syringe IV 02/04/25 19:10 Q15MIN PRN BG 50-70 responsive npo pt Dextrose 50 ml 01/05/25 19:11 Dextrose 50%-Water Inj 50 Ml Syringe IV 02/04/25 19:10 Q15MIN PRN BG <50 OR BG <70 & pt unresponsive Enoxaparin Sodium 60 mg 01/07/25 21:00 01/12/25 10:02 Enoxaparin Sod Inj 60 Mg/0.6 Ml Syringe SC 01/21/25 20:59 60 mg BID KIT Administration Fludrocortisone Acetate 0.1 mg 01/07/25 21:00 01/12/25 10:03 Fludrocortisone Acetate 0.1 Mg Tablet GT 02/06/25 20:59 0.1 mg BID KIT Administration Glucagon 1 mg 01/05/25 19:11 Glucagon Inj 1 Mg Vial IM Q15MIN PRN BG <70, and no IV access Ertapenem 1,000 mg/ Sodium 50 mls @ 100 mls/hr 01/12/25 09:00 01/12/25 10:37 Chloride IV 01/19/25 08:59 100 mls/hr QDAY KIT Administration Protocol Insulin Human Lispro 0 unit 01/06/25 06:00 01/12/25 17:57 Insulin Lispro (Admelog) 1 Unit/0.01 Ml Unit SC 02/05/25 05:59 Not Given Q6HR [facility] Protocol Ipratropium [place] 0.5 mg 01/07/25 21:00 01/12/25 15:58 Ipratropium Rt 0.5 Mg/ 2.5 Ml Nebu INH 02/06/25 20:59 0.5 mg QIDRT KIT Administration Lansoprazole 30 mg 01/10/25 09:00 01/12/25 10:03 Lansoprazole 30 Mg Tab. GT 02/07/25 08:59 30 mg QDAY KIT Administration Levalbuterol HCl 1.25 mg 01/07/25 21:00 01/12/25 15:58 Levalbuterol Rt 1.25 Mg/0.5 Ml Nebu INH 02/06/25 20:59 1.25 mg QIDRT KIT Administration Levetiracetam 100 mg 01/07/25 21:00 01/12/25 10:03 Levetiracetam Liqd 500 Mg/5 Ml Ud GT 02/06/25 20:59 100 mg BID KIT Administration Midodrine 10 mg 01/06/25 18:38 01/12/25 17:56 Midodrine 5 Mg Tablet PO 02/05/25 08:59 10 mg TID KIT Administration Multivitamins/Minerals 15 ml 01/08/25 09:00 01/12/25 10:03 Multivitamin 15 Ml Udc PO 02/07/25 08:59 15 ml QDAY KIT Administration Ondansetron HCl 4 mg 01/05/25 17:09 Ondansetron Inj 2 Mg/Ml Inj 2 Ml IV 02/04/25 17:08 Q6H PRN NAUSEA OR VOMITING Protocol Phenytoin 600 mg 01/07/25 21:00 01/12/25 10:03 Phenytoin 100 Mg/4 Ml [facility] [place] 02/06/25 20:59 600 mg BID KIT Administration Sodium Chloride 3 ml 01/07/25 17:55 Sodium Chloride Rt [place] 0.9% 3 Ml Nebu INH 02/06/25 17:54 PRN PRN SOLN Vitamin B Complex/Vit C/Folic Acid 1 tab 01/08/25 09:00 01/12/25 10:03 Vit B12/Vit C/Fa (Nephrovite) Tablet PO 02/07/25 08:59 1 tab QDAY KIT Administration Plan 39-year-old male with a past medical history of 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 Successfully weaned off pressors, downgrade to floors for further management. #Septic shock requiring pressor support-resolved #UTI #Pneumonia #Osteomyelitis of right ischium Sepsis is multifactorial with pneumonia and UA indicating UTI, multiple pressure ulcers, sacral osteomyelitis Chest x-ray revealed left-sided pneumonia, CT A/P showed osteomyelitis right ischium. WBC was elevated, lactic acid was 2.7, Pro-Chuck was severely elevated, patient was febrile Patient received significant IV fluids remained in shock, sent to ICU for pressor support. Patient titrated off pressors, blood pressure and stable and was downgraded to floors for further management. Blood cultures growing staph epi 1/2 bottles, probable contaminant. Urine and blood cultures final result pending. Sputum cultures pending. Repeat blood cultures negative. Urine culture positive for ESBL Proteus, sensitive to Zosyn. Sputum culture grew Klebsiella and Proteus. Vancomycin and Zosyn (started 01/05). Changed to ertapenem for full 6-week course of osteomyelitis treatment per ID recs. Patient was unable to have PICC line placed due to bilateral upper extremity DVTs, currently undergoing treatment. Will reassess options for treatment tomorrow. -Ertapenem 1 g IV daily (until 02/16/2025) -Midodrine 10 mg 3 times daily -ID consulted, appreciate recommendations -Reassess possible PIV antibiotic treatment at SNF versus p.o. antibiotic #GERD #Shock liver, severe transaminitis, improving AST 814, ALT 1105, ALP 413 on admission. Suspect shock liver in setting of septic shock. Patient received sepsis protocol fluid bolus. Transaminitis improving -Will follow-up with daily CMP -PPI IV for prophylaxis #Adrenal insufficiency, suspected Patient takes 0.1 mg fludrocortisone at twice daily at home, suspect due to history of adrenal sufficiency although not clearly documented. Would explain patient's significant hypotension and continued soft blood pressure. -Resume home meds: Fludrocortisone 0.1 mg GT twice daily #Obstructive uropathy #ELDON versus ELDON on CKD On presentation creatinine was 2.9, BUN 95, EGFR of 27. Patient received IV fluids, sepsis protocol. No previous labs to compare to. Renal function improving. -Continue close monitoring -Avoid nephrotoxic agent -Renally dose medication -Monitor MARILU's -Resume home tube feeds with water flushes #Bilateral upper extremity DVT Patient was diagnosed with bilateral upper extremity DVTs on 12/10/2024, current undergoing active treatment with Lovenox -Resume home meds: Lovenox 60 mg twice daily #Seizure #Anoxic brain injury due to cardiac arrest, nonverbal Patient history as stated. Tracheostomy and PEG tube. -Resume home meds: Baclofen, Keppra, phenytoin #DM type II Home medications insulin. A1c 5%. -Insulin sliding scale -Hypoglycemic protocols in place -Restarted home tube feeding DVT prophylaxis: Lovenox GI prophylaxis: PPI Diet: PEG tube feeds Lines: PIV, tracheostomy, suprapubic catheter, nephrostomy tube, PEG tube, CODE STATUS:Full code Plan of care discussed with senior resident Dr. Pearson PGY?[address] Moore. James Crespo MD PGY?1 Attending Provider Attestation/Addendum I have discussed and was present for the essential components of the history, physical examination, diagnosis, and treatment plan with the resident. I agree with the patient's care as documented by the resident and amended herein by me. Dante Moore, DO. Although this document has been carefully reviewed, there may still be some phonetic and other typographical errors. These errors are purely grammatical due to imperfections in the software program and should not be construed in any way to compromise the substance of the patient's medical care during this visit.
[2025-01-13] VITALS (20 sets, daily range): BP systolic 96–112; BP diastolic 56–72; PULSE 66–111; RESP 16–21; TEMP 35.9–36.6; O2SAT 90–100; BMI 21.4
--- NOTE | 2025-01-13 03:51 | PC.NURSE ---
[facility] downtime occurred on 01/13/25 from 0200 to 0350.
[2025-01-13] MEDS: INSULIN LISPRO (AdmeLOG) 1 UNIT/0.01 ML UNIT SC (05:07)
[2025-01-13] MEDS: MIDODRINE 5 MG TABLET 10 MG PO ×3 (05:11→21:04)
[2025-01-13] MEDS: BACLOFEN 10 MG TABLET 5 MG PO ×3 (05:11→21:03)
[2025-01-13 05:26] LABS: Basophils # (Auto) 0.1 Thou/mm3 (0.0-0.2); Basophils % (Auto) 1 % (0-2.5); Eosinophils # (Auto) 2.2 Thou/mm3 (0.0-0.5); Eosinophils % (Auto) 18 % (0-10); Hematocrit 30.9 % (41.0-53.0); Hemoglobin 9.9 g/dL (13.5-16.0); Immature Granulocytes % (Auto) 1 % (0-0); Immature Granulocytes Auto 0.13 Thou/mm3 (0.00-0.00); Lymphocytes # (Auto) 2.1 Thou/mm3 (1.0-4.8); Lymphocytes % (Auto) 17 % (10-50); Mean Corpuscular Hemoglobin 29.7 pg (25.0-35.0); Mean Corpuscular Volume 93 fL (80-100); Monocytes # (Auto) 0.6 Thou/mm3 (0.0-0.8); Monocytes % (Auto) 5 % (0-12); Neutrophils # (Auto) 6.8 Thou/mm3 (1.8-7.7); Neutrophils % (Auto) 57 % (37-80); Nucleated Red Blood Cell % 0 /100 WBC (0); Platelet Count 422 Thou/mm3 (140-440); RDW Standard Deviation 47.7 fL (35.1-43.9); Red Blood Count 3.33 Miln/mm3 (4.50-5.90); White Blood Count 11.9 Thou/mm3 (3.8-10.6)
[2025-01-13] MEDS: IPRATROPIUM RT 0.5 MG/ 2.5 ML NEBU INH ×4 (06:17→18:35)
[2025-01-13] MEDS: LEVALBUTEROL RT 1.25 MG/0.5 ML NEBU INH ×4 (06:17→18:35)
[2025-01-13 07:26] LABS: Alanine Aminotransferase 52 U/L (10-49); Albumin, Serum 3.9 gm/dL (3.5-5.0); Albumin/Globulin Ratio 1.3 (1.2-2.2); Alkaline Phosphatase 209 U/L (46-116); Anion Gap 11 (7-16); Aspartate Amino Transferase 13 U/L (0-34); BUN/Creatinine Ratio 26 Ratio (12-20); Bilirubin,Total < 0.2 mg/dL (0.3-1.2); Blood Urea Nitrogen 50 mg/dL (9-23); Calcium 9.3 mg/dL (8.3-10.6); Calcium (Corrected) 9.4 mg/dL (8.5-10.1); Carbon Dioxide 25.1 mMol/L (20.0-31.0); Chloride 109 mMol/L (98-107); Creatinine (Component) 1.9 mg/dL (0.6-1.3); Estimated Creatinine Clearance 43.7 mL/min (>60); Globulin 3.1 gm/dL (2.3-3.5); Glucose 150 mg/dL (74-106); Magnesium 2.5 mg/dL (1.6-2.6); Osmolality,Calculated 305 (275-295); Phosphorous 4.5 mg/dL (2.4-5.1); Potassium 3.7 mMol/L (3.4-5.1); Sodium 145 mMol/L (136-145); eGFR 45 See Note
[2025-01-13] MEDS: ENOXAPARIN SOD INJ 60 MG/0.6 ML SYRINGE SC ×2 (08:25→20:50)
[2025-01-13] MEDS: Silvasorb Gel 45 ML TUBE TOP (08:25)
[2025-01-13] MEDS: MULTIVITAMIN 15 ML UDC PO (08:26)
[2025-01-13] MEDS: ERTAPENEM INJ 1,000 MG in SODIUM CHLORIDE 0.9% (Popper) 50 ML 100 MG IV (08:26)
[2025-01-13] MEDS: LANSOPRAZOLE 30 MG TAB.RAP.DR GT (08:26)
[2025-01-13] MEDS: PHENYTOIN 100 MG/4 ML UDC 600 MG GT ×2 (08:26→20:51)
[2025-01-13] MEDS: VIT B12/Vit C/FA (Nephrovite) TABLET 1 TAB PO (08:26)
[2025-01-13] MEDS: FLUDROCORTISONE ACETATE 0.1 MG TABLET GT ×2 (08:26→20:51)
[2025-01-13] MEDS: levETIRAcetam LIQD 500 MG/5 ML UDC 100 MG GT ×2 (08:26→20:50)
--- NOTE | 2025-01-13 10:53 | CHAP ---
Patient sleeping. Prayed at bedside. Patient unable to verbalize.
--- NOTE | 2025-01-13 10:54 | PC.SS ---
Follow up note: Patient's d/c was held late yesterday due to IR not able to place picc line. SS spoke to phsyician team and they will attempt again today. If picc line placed, patient will d/c to facility.
--- NOTE | 2025-01-13 14:25 | PD.IDPROG ---
Subjective Subjective Interval history: see that du culture with esbl so pt is on ertapenem iv. we usually discourage performance of these cultures as they often drive potentially inappropriate rx. Exam Vital Signs Temp Pulse Resp BP Pulse Ox O2 Del Method O2 Flow Rate 97.3 F 91 19 101/72 90 L Mechanical Ventilation 50 01/13/25 11:00 01/13/25 11:00 01/13/25 11:00 01/13/25 11:00 01/13/25 11:00 01/13/25 11:00 01/13/25 11:00 FiO2 40 01/13/25 11:00 Narrative Exam limited visit Objective - Internal Medicine Labs 01/13/25 04:55 01/13/25 04:55 Labs: Laboratory Results - last 24 hr 01/13/25 04:55 WBC 11.9 H RBC 3.33 L Hgb 9.9 L Hct 30.9 L MCV 93 MCH 29.7 MCHC 32.0 RDW Std Deviation 47.7 H Plt Count 422 Neut % (Auto) 57 Lymph % (Auto) 17 [place] % (Auto) 5 Eos % (Auto) 18 H Baso % (Auto) 1 Neut # (Auto) 6.8 Lymph # (Auto) 2.1 [place] # (Auto) 0.6 Eos # (Auto) 2.2 H Baso # (Auto) 0.1 Immature Gran # (Auto) 0.13 H Absolute Nucleated RBC 0.00 Immature Gran % 1 H Nucleated RBC % 0 Sodium 145 Potassium 3.7 Chloride 109 H Carbon Dioxide 25.1 Anion Gap 11 BUN 50 H Creatinine 1.9 H Estim Creat Clear Calc 43.7 L eGFR 45 L BUN/Creatinine Ratio 26 H Glucose 150 H Calculated Osmolality 305 H Calcium 9.3 Corrected Calcium 9.4 Phosphorus 4.5 Magnesium 2.5 Total Bilirubin < 0.2 L AST 13 ALT 52 H Alkaline Phosphatase 209 H Total Protein 7.0 Albumin 3.9 Globulin 3.1 Albumin/Globulin Ratio 1.3 ABG Interpretation ABG results: 01/05/25 19:43 ABG pH 7.39 ABG pCO2 40 ABG pO2 93 ABG HCO3 24 ABG O2 Saturation 98 ABG Base Excess -1 Assessment & Plan A&P Narrative bacteremia probably a contaminant bacteriuria ua not striking but not normal du with apparent osteo. du's will not improve unless pressure avoidance is imposed. abx only kill germs, they do not heal wounds. anoxic brain injury obstructive uropathy. full code with other health problems at 39 yoa. with anoxic brain injury no objection if he is made hospice ertapenem appears to be based on swab of du. it will likely work but is costly and possibly overly broad this is why we do not favor the perfomance of swab cx of wounds please encourage pressure avoidance strategies for the du if family makes him hospice. that is ok with me. try to get old records on him if you can. since all we have is the esbl from wound, and no staph, ok to stop vanco and if you want to give ertapenem 1 gm iv daily for remainder of 6 weeks, that is ok but note that abx only kill germs, so if pressure avoidance not imposed, without pressure avoidance this will not improve. based on micro, zosyn will also work but requires more daily doses. will see again if formally requested. Time Spent With Patient Time: Total time spent is greater than 50% in coordination of care (as documented) at patient's floor/unit and/or counseling patient:
--- NOTE | 2025-01-13 14:34 | PC.SS ---
SS spoke to Julianne JONES to inquire if [facility] can accommodate a peripheral line. She will discuss this with their DON and call me back.
--- NOTE | 2025-01-13 15:19 | ESPR_ITS ---
Documentation for date of: 01/13/25 Senior resident attestation: Patient is a 39-year-old male, past medical history of anoxic brain injury, chronically trached and pegged, suprapubic catheter and nephrostomy due to obstructive uropathy with bilateral upper extremity DVT, admitted for septic shock secondary to UTI and pneumonia. Problems: #Right upper extremity DVT?venous Doppler showed positive thrombus involving the right cephalic and right brachial veins, left upper extremity venous system appears open. The patient had history of bilateral upper extremity DVT diagnosed on 12/10/2024 at [facility], currently on treatment with Lovenox twice daily. Attempted to place a PICC line for continued antibiotic treatment was unsuccessful. Will continue with anticoagulation. Reordered IR guided PICC line placement on the left upper arm. #UTI?secondary to ESBL Proteus, was sensitive to Zosyn and ertapenem. #Healthcare associated pneumonia?sputum cultures grew Pseudomonas, Proteus and Klebsiella, completed 7 days of IV antibiotics Zosyn. #Osteomyelitis of right ischium?infectious disease on board, recommended continuing ertapenem 1 g daily through 02/16/2025, urine culture positive for ESBL Proteus also sensitive to ertapenem. Unable to place a PICC line due to poor venous access, will reach out to ID for alternate antibiotics, as microbiology of pathogen sensitive to Augmentin which can be given via G-tube. Also concern for decubitus pressure induced ulcer, with superimposed osteomyelitis. Per ID, first line rx remains iv antibiotics will order PICC line placement for left upper arm and continue with ertapenem. #Shock liver?improving #Obstructive uropathy?improving BUN and creatinine, BUN still persistently high in the 50s, likely secondary to dehydration, also hyperosmolar and mild hypernatremia. Patient evaluated and examined at the bedside, plan of care discussed with rest of the team including my attending physician, except as noted. Quresh PGY2 Subjective Subjective Interval history: No overnight events. Patient seen examined at bedside, no significant changes from yesterday. Patient does not appear to be in distress. Will attempt to place PICC line in left arm today, duplex read no DVTs in that venous system. Will also inquire as to possibility of peripheral IV antibiotic use at care facility. Exam Vital Signs Temp Pulse Resp BP Pulse Ox O2 Del Method O2 Flow Rate 97.3 F 82 19 101/72 99 Mechanical Ventilation 50 01/13/25 11:00 01/13/25 14:51 01/13/25 11:00 01/13/25 14:51 01/13/25 12:55 01/13/25 11:00 01/13/25 11:00 FiO2 40 01/13/25 12:55 Narrative Exam PE: Gen: Chronically ill-appearing. HEENT: NCAT, MMM, anicteric conjunctivae. Tracheostomy to vent. CVS: normal S1 and S2. RRR. No M/R/G. Resp: CTA B/L. No rhonchi, rales, crackles or wheezing. Poor lung sounds due to low respiratory effort. Abd: soft, non-tender, non-distended. PEG tube. Nephrostomy tube. Suprapubic Lal cath. MSK: Bilateral lower extremity contractures. Dry flaky skin bilateral lower extremities. Neuro: Flexor posturing to noxious stimuli. Eyes open but does not track. Nonverbal. Objective Labs 01/14/25 04:45 01/13/25 04:55 Labs: Laboratory Results - last 24 hr 01/13/25 04:55 WBC 11.9 H RBC 3.33 L Hgb 9.9 L Hct 30.9 L MCV 93 MCH 29.7 MCHC 32.0 RDW Std Deviation 47.7 H Plt Count 422 Neut % (Auto) 57 Lymph % (Auto) 17 [place] % (Auto) 5 Eos % (Auto) 18 H Baso % (Auto) 1 Neut # (Auto) 6.8 Lymph # (Auto) 2.1 [place] # (Auto) 0.6 Eos # (Auto) 2.2 H Baso # (Auto) 0.1 Immature Gran # (Auto) 0.13 H Absolute Nucleated RBC 0.00 Immature Gran % 1 H Nucleated RBC % 0 Sodium 145 Potassium 3.7 Chloride 109 H Carbon Dioxide 25.1 Anion Gap 11 BUN 50 H Creatinine 1.9 H Estim Creat Clear Calc 43.7 L eGFR 45 L BUN/Creatinine Ratio 26 H Glucose 150 H Calculated Osmolality 305 H Calcium 9.3 Corrected Calcium 9.4 Phosphorus 4.5 Magnesium 2.5 Total Bilirubin < 0.2 L AST 13 ALT 52 H Alkaline Phosphatase 209 H Total Protein 7.0 Albumin 3.9 Globulin 3.1 Albumin/Globulin Ratio 1.3 ABG Interpretation ABG results: 01/05/25 19:43 ABG pH 7.39 ABG pCO2 40 ABG pO2 93 ABG HCO3 24 ABG O2 Saturation 98 ABG Base Excess -1 Quality Measures Quality Measures VTE prophylaxis Assessment & Plan Assessment Current Active Medications: Generic Name Dose Route Start Last Admin Trade Name Devanteq PRN Reason Stop Dose Admin Albuterol 2.5 mg 01/07/25 15:17 Albuterol Rt 2.5 Mg/0.5 Ml Nebu INH 02/06/25 14:58 Q6H PRN shortness of breath or wheezing Baclofen 5 mg 01/07/25 22:00 01/13/25 14:51 Baclofen 10 Mg Tablet PO 02/06/25 21:59 5 mg TID KTI Administration Gabapentin 250 Mg/5 0 ea 01/07/25 18:42 Ml Solution GT 02/06/25 18:41 Q8HR PRN HICCUPS Dextrose 25 ml 01/05/25 19:11 Dextrose 50%-Water Inj 50 Ml Syringe IV 02/04/25 19:10 Q15MIN PRN BG 50-70 responsive npo pt Dextrose 50 ml 01/05/25 19:11 Dextrose 50%-Water Inj 50 Ml Syringe IV 02/04/25 19:10 Q15MIN PRN BG <50 OR BG <70 & pt unresponsive Enoxaparin Sodium 60 mg 01/07/25 21:00 01/13/25 08:25 Enoxaparin Sod Inj 60 Mg/0.6 Ml Syringe SC 01/21/25 20:59 60 mg BID KIT Administration Fludrocortisone Acetate 0.1 mg 01/07/25 21:00 01/13/25 08:26 Fludrocortisone Acetate 0.1 Mg Tablet GT 02/06/25 20:59 0.1 mg BID KIT Administration Glucagon 1 mg 01/05/25 19:11 Glucagon Inj 1 Mg Vial IM Q15MIN PRN BG <70, and no IV access Ertapenem 1,000 mg/ Sodium 50 mls @ 100 mls/hr 01/12/25 09:00 01/13/25 08:26 Chloride IV 01/19/25 08:59 100 mls/hr QDAY KIT Administration Protocol Insulin Human Lispro 0 unit 01/06/25 06:00 01/13/25 11:37 Insulin Lispro (Admelog) 1 Unit/0.01 Ml Unit SC 02/05/25 05:59 Not Given Q6HR COUNTS INCLUDE 234 BEDS AT THE [facility] Protocol Ipratropium [place] 0.5 mg 01/07/25 21:00 01/13/25 10:14 Ipratropium Rt 0.5 Mg/ 2.5 Ml Nebu INH 02/06/25 20:59 0.5 mg QIDRT KIT Administration Lansoprazole 30 mg 01/10/25 09:00 01/13/25 08:26 Lansoprazole 30 Mg Tab.Rap. GT 02/07/25 08:59 30 mg QDAY KIT Administration Levalbuterol HCl 1.25 mg 01/07/25 21:00 01/13/25 10:14 Levalbuterol Rt 1.25 Mg/0.5 Ml Nebu INH 02/06/25 20:59 1.25 mg QIDRT KIT Administration Levetiracetam 100 mg 01/07/25 21:00 01/13/25 08:26 Levetiracetam Liqd 500 Mg/5 Ml Ud GT 02/06/25 20:59 100 mg BID KIT Administration Midodrine 10 mg 01/06/25 18:38 01/13/25 14:51 Midodrine 5 Mg Tablet PO 02/05/25 08:59 10 mg TID KIT Administration Multivitamins/Minerals 15 ml 01/08/25 09:00 01/13/25 08:26 Multivitamin 15 Ml Udc PO 02/07/25 08:59 15 ml QDAY KIT Administration Ondansetron HCl 4 mg 01/05/25 17:09 Ondansetron Inj 2 Mg/Ml Inj 2 Ml IV 02/04/25 17:08 Q6H PRN NAUSEA OR VOMITING Protocol Phenytoin 600 mg 01/07/25 21:00 01/13/25 08:26 Phenytoin 100 Mg/4 Ml Udc GT 02/06/25 20:59 600 mg BID KIT Administration Sodium Chloride 3 ml 01/07/25 17:55 Sodium Chloride Rt [place] 0.9% 3 Ml Nebu INH 02/06/25 17:54 PRN PRN SOLN Vitamin B Complex/Vit C/Folic Acid 1 tab 01/08/25 09:00 01/13/25 08:26 Vit B12/Vit C/Fa (Nephrovite) Tablet PO 02/07/25 08:59 1 tab QDAY KIT Administration Plan 39-year-old male with a past medical history of 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 Successfully weaned off pressors, downgrade to floors for further management. #Septic shock requiring pressor support-resolved #UTI #Pneumonia #Osteomyelitis of right ischium Sepsis is multifactorial with pneumonia and UA indicating UTI, multiple pressure ulcers, sacral osteomyelitis Chest x-ray revealed left-sided pneumonia, CT A/P showed osteomyelitis right ischium. WBC was elevated, lactic acid was 2.7, Pro-Chuck was severely elevated, patient was febrile Patient received significant IV fluids remained in shock, sent to ICU for pressor support. Patient titrated off pressors, blood pressure and stable and was downgraded to floors for further management. Blood cultures growing staph epi 1/2 bottles, probable contaminant. Urine and blood cultures final result pending. Sputum cultures pending. Repeat blood cultures negative. Urine culture positive for ESBL Proteus, sensitive to Zosyn. Sputum culture grew Klebsiella and Proteus. Vancomycin and Zosyn (started 01/05). Changed to ertapenem for full 6-week course of osteomyelitis treatment per ID recs. Patient was unable to have PICC line placed due to bilateral upper extremity DVTs, currently undergoing treatment. Will reassess options for treatment tomorrow. Duplex showed open venous system in left upper extremity, will attempt PICC line placement. Failing that, will inquire into possibility of peripheral IV antibiotics at [facility]. Failing that, will discharge on p.o. antibiotics via G- tube. -Ertapenem 1 g IV daily (until 02/16/2025) -Midodrine 10 mg 3 times daily -ID consulted, appreciate recommendations -Reassess antibiotic options as above. #GERD #Shock liver, severe transaminitis, improving AST 814, ALT 1105, ALP 413 on admission. Suspect shock liver in setting of septic shock. Patient received sepsis protocol fluid bolus. Transaminitis improving -Will follow-up with daily CMP -PPI IV for prophylaxis #Adrenal insufficiency, suspected Patient takes 0.1 mg fludrocortisone at twice daily at home, suspect due to history of adrenal sufficiency although not clearly documented. Would explain patient's significant hypotension and continued soft blood pressure. -Resume home meds: Fludrocortisone 0.1 mg GT twice daily #Obstructive uropathy #ELDON versus ELDON on CKD On presentation creatinine was 2.9, BUN 95, EGFR of 27. Patient received IV fluids, sepsis protocol. No previous labs to compare to. Renal function improving. -Continue close monitoring -Avoid nephrotoxic agent -Renally dose medication -Monitor MARILU's -Resume home tube feeds with water flushes #Bilateral upper extremity DVT Patient was diagnosed with bilateral upper extremity DVTs on 12/10/2024, current undergoing active treatment with Lovenox -Resume home meds: Lovenox 60 mg twice daily #Seizure #Anoxic brain injury due to cardiac arrest, nonverbal Patient history as stated. Tracheostomy and PEG tube. -Resume home meds: Baclofen, Keppra, phenytoin #DM type II Home medications insulin. A1c 5%. -Insulin sliding scale -Hypoglycemic protocols in place -Restarted home tube feeding DVT prophylaxis: Lovenox GI prophylaxis: PPI Diet: PEG tube feeds Lines: PIV, tracheostomy, suprapubic catheter, nephrostomy tube, PEG tube, CODE STATUS:Full code Plan of care discussed with senior resident Dr. Pearson PGY?[address] Moore. James Crespo MD PGY?1 Attending Provider Attestation/Addendum I have discussed and was present for the essential components of the history, physical examination, diagnosis, and treatment plan with the resident. I agree with the patient's care as documented by the resident and amended herein by me. Dante Moore DO. Although this document has been carefully reviewed, there may still be some phonetic and other typographical errors. These errors are purely grammatical due to imperfections in the software program and should not be construed in any way to compromise the substance of the patient's medical care during this visit.
--- NOTE | 2025-01-13 16:33 | PD.ADDPROG ---
Addendum Progress Note Addendum Date of report being addended: 01/13/25 Narrative: do not inherently object ot invanz use, but note that it does not cover pseudomonas at all. so if you want to cover that, you may need a broader agent. I will be away saturday and possibly saturday too.
[2025-01-13] MEDS: GABAPENTIN 250 MG/5 ML GT (19:54)
[2025-01-14] VITALS (26 sets, daily range): BP systolic 89–111; BP diastolic 53–78; PULSE 81–126; RESP 15–26; TEMP 36–37; O2SAT 95–100; BMI 21.4
--- NOTE | 2025-01-14 | XR_ITS ---
Examination: Ultrasound-guided needle placement left basilic vein. 1 successful PICC line placement Fluoroscopy AP chest, portable, single view Exam date and time:January 14, 2025 1402 hours INDICATION: Need for long-term intravenous medication A timeout was completed verifying correct patient, procedure, site, positioning Informed consent provided Technique: The patient's site was prepped and draped in sterile fashion. Maximum Sterile Barrier Technique used including cap, mask, sterile gown, sterile gloves, and sterile full body drape. If ultrasound technique used: sterile gel and sterile probe covers. Hand Hygiene performed using proper scrub, soap and water, or alcohol-based hand rub. Site right portable apparatus utilized to confirm patency of the left basilic vein Utilizing ultrasonographic guidance successful 21-gauge needle puncture into the left basilic vein However, the wire guide could not be advanced beyond occlusion in the brachial vein under fluoroscopic guidance Ultrasound images recorded and stored. Impression: Successful ultrasound-guided needle placement left basilic vein However occlusions of the brachial vein precludes placement of a central venous catheter Fluoroscopy 0.4 minute radiation dose 0.77 milligray. 1 spot fluoroscopic chest film
[2025-01-14 05:39] LABS: Basophils # (Auto) 0.1 Thou/mm3 (0.0-0.2); Basophils % (Auto) 1 % (0-2.5); Eosinophils # (Auto) 2.1 Thou/mm3 (0.0-0.5); Eosinophils % (Auto) 16 % (0-10); Hematocrit 30.6 % (41.0-53.0); Hemoglobin 9.5 g/dL (13.5-16.0); Immature Granulocytes % (Auto) 1 % (0-0); Immature Granulocytes Auto 0.19 Thou/mm3 (0.00-0.00); Lymphocytes % (Auto) 14 % (10-50); Mean Corpuscular Hemoglobin 29.6 pg (25.0-35.0); Mean Corpuscular Volume 95 fL (80-100); Monocytes # (Auto) 0.8 Thou/mm3 (0.0-0.8); Monocytes % (Auto) 6 % (0-12); Neutrophils # (Auto) 8.5 Thou/mm3 (1.8-7.7); Neutrophils % (Auto) 62 % (37-80); Nucleated Red Blood Cell % 0 /100 WBC (0); Platelet Count 425 Thou/mm3 (140-440); RDW Standard Deviation 49.3 fL (35.1-43.9); Red Blood Count 3.21 Miln/mm3 (4.50-5.90); White Blood Count 13.7 Thou/mm3 (3.8-10.6)
[2025-01-14] MEDS: LACTULOSE SYRUP 20 GM/30 ML UDC GT ×2 (05:47→21:23)
[2025-01-14] MEDS: BACLOFEN 10 MG TABLET 5 MG PO ×3 (05:47→21:22)
[2025-01-14] MEDS: MIDODRINE 5 MG TABLET 10 MG PO ×3 (05:47→21:22)
[2025-01-14] MEDS: GABAPENTIN 250 MG/5 ML GT (06:02)
[2025-01-14] MEDS: LEVALBUTEROL RT 1.25 MG/0.5 ML NEBU INH ×4 (06:14→18:15)
[2025-01-14] MEDS: IPRATROPIUM RT 0.5 MG/ 2.5 ML NEBU INH ×4 (06:14→18:15)
[2025-01-14 06:24] LABS: Alanine Aminotransferase 54 U/L (10-49); Albumin, Serum 3.9 gm/dL (3.5-5.0); Albumin/Globulin Ratio 1.3 (1.2-2.2); Alkaline Phosphatase 236 U/L (46-116); Anion Gap 11 (7-16); Aspartate Amino Transferase 18 U/L (0-34); BUN/Creatinine Ratio 28 Ratio (12-20); Bilirubin,Total < 0.2 mg/dL (0.3-1.2); Blood Urea Nitrogen 51 mg/dL (9-23); Calcium 9.2 mg/dL (8.3-10.6); Calcium (Corrected) 9.3 mg/dL (8.5-10.1); Carbon Dioxide 25.5 mMol/L (20.0-31.0); Chloride 108 mMol/L (98-107); Creatinine (Component) 1.8 mg/dL (0.6-1.3); Estimated Creatinine Clearance 46.1 mL/min (>60); Globulin 3.1 gm/dL (2.3-3.5); Glucose 125 mg/dL (74-106); Magnesium 2.4 mg/dL (1.6-2.6); Osmolality,Calculated 301 (275-295); Phosphorous 3.6 mg/dL (2.4-5.1); Potassium 3.6 mMol/L (3.4-5.1); Sodium 144 mMol/L (136-145); eGFR 48 See Note
--- NOTE | 2025-01-14 08:30 | PC.SS ---
Addendum entered by Courtney Claire 01/14/25 08:47: SS clarified with attending and patient will not d/c with peripheral. They will attempt a picc line today. Poss d/c if this happens before noon. Original Note: Follow up note: SS spoke to physician team to inquire if patient is being discharged today. Patient was not able to get the picc line again yesterday. Updated patient can d/c with peripheral line. However, patient needs to d/c before noon today. If not, he cannot d/c to facility until tomorrow.
[2025-01-14] MEDS: ENOXAPARIN SOD INJ 60 MG/0.6 ML SYRINGE SC ×2 (09:16→21:29)
[2025-01-14] MEDS: LANSOPRAZOLE 30 MG TAB.RAP.DR GT (09:16)
[2025-01-14] MEDS: FLUDROCORTISONE ACETATE 0.1 MG TABLET GT ×2 (09:16→21:22)
[2025-01-14] MEDS: ERTAPENEM INJ 1,000 MG in SODIUM CHLORIDE 0.9% (Popper) 50 ML 100 MG IV (09:16)
[2025-01-14] MEDS: MULTIVITAMIN 15 ML UDC PO (09:18)
[2025-01-14] MEDS: VIT B12/Vit C/FA (Nephrovite) TABLET 1 TAB PO (09:18)
[2025-01-14] MEDS: PHENYTOIN 100 MG/4 ML UDC 600 MG GT ×2 (09:18→21:23)
[2025-01-14] MEDS: levETIRAcetam LIQD 500 MG/5 ML UDC 100 MG GT (09:21)
[2025-01-14] MEDS: HEPARIN SOD LOCK SYR 100 UNIT/ML 500 UNIT STFIELD (15:02)
[2025-01-14] MEDS: LIDOCAINE INJ PF 1% 30 ML VIAL INFL (15:02)
--- NOTE | 2025-01-14 15:29 | PC.SS ---
Rounding Note: Plan is to insert PICC line today. Patient is from [facility] at [facility].
--- NOTE | 2025-01-14 15:44 | PC.NURSE ---
1511 patient went to IR for picc line insertion to left arm, unable to insert picc line. report given to Ronaldo FOUNTAIN, patient transferred back to tele room [id number] accompanied by RT.
--- NOTE | 2025-01-14 15:54 | PC.NURSE ---
Drainage line removal successful. Patient tolerated procedure well, A&O x4. Patient taken to [facility] via gurney. Dressing clean, dry, and intact. No signs of bleeding. Bedside report given to АЛЕКСАНДР Young.
--- NOTE | 2025-01-14 16:20 | ESPR_ITS ---
Documentation for date of: 01/14/25 Senior resident attestation: Patient is a 39-year-old male, past medical history of anoxic brain injury, chronically trached and pegged, suprapubic catheter and nephrostomy due to obstructive uropathy with bilateral upper extremity DVT, admitted for septic shock secondary to UTI and pneumonia. Problems: #Right upper extremity DVT?venous Doppler showed positive thrombus involving the right cephalic and right brachial veins, left upper extremity venous system appears open. The patient had history of bilateral upper extremity DVT diagnosed on 12/10/2024 at [facility], currently on treatment with Lovenox twice daily. Attempted to place a PICC line for continued antibiotic treatment was unsuccessful. 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 Patient started having #UTI?secondary to ESBL Proteus, was sensitive to Zosyn and ertapenem. #Healthcare associated pneumonia?sputum cultures grew Pseudomonas, Proteus and Klebsiella, completed 7 days of IV antibiotics Zosyn. #Osteomyelitis of right ischium?infectious disease on board, recommended continuing ertapenem 1 g daily through 02/16/2025, urine culture positive for ESBL Proteus also sensitive to ertapenem. Unable to place a PICC line due to poor venous access, will reach out to ID for alternate antibiotics, as microbiology of pathogen sensitive to Augmentin which can be given via G-tube. Also concern for decubitus pressure induced ulcer, with superimposed osteomyelitis. Per ID, first line rx remains iv antibiotics will order PICC line placement for left upper arm and continue with ertapenem. #Shock liver?improving #Obstructive uropathy?improving BUN and creatinine, BUN still persistently high in the 50s, likely secondary to dehydration, also hyperosmolar and mild hypernatremia. Patient evaluated and examined at the bedside, plan of care discussed with rest of the team including my attending physician, except as noted. Quresh PGY2 Subjective Subjective Interval history: No overnight events. Patient seen examined at bedside, no significant changes from yesterday. Patient does not appear to be in distress. Patient home facility unable to use peripheral line for IV antibiotics. PICC line was unable to be placed on either arm today. Will discharge patient tomorrow with oral antibiotics via G-tube. Exam Vital Signs Temp Pulse Resp BP Pulse Ox O2 Del Method O2 Flow Rate 96.8 F 109 H 16 108/64 100 Mechanical Ventilation 50 01/14/25 12:00 01/14/25 15:49 01/14/25 15:10 01/14/25 15:49 01/14/25 15:10 01/14/25 15:10 01/13/25 15:00 FiO2 50 01/14/25 15:10 Narrative Exam PE: Gen: Chronically ill-appearing. HEENT: NCAT, MMM, anicteric conjunctivae. Tracheostomy to vent. CVS: normal S1 and S2. RRR. No M/R/G. Resp: CTA B/L. No rhonchi, rales, crackles or wheezing. Poor lung sounds due to low respiratory effort. Abd: soft, non-tender, non-distended. PEG tube. Nephrostomy tube. Suprapubic Lal cath. MSK: Bilateral lower extremity contractures. Dry flaky skin bilateral lower extremities. Neuro: Flexor posturing to noxious stimuli. Eyes open but does not track. Nonverbal. Objective Labs 01/15/25 05:21 01/15/25 05:21 Labs: Laboratory Results - last 24 hr 01/14/25 04:45 WBC 13.7 H RBC 3.21 L Hgb 9.5 L Hct 30.6 L MCV 95 MCH 29.6 MCHC 31.0 RDW Std Deviation 49.3 H Plt Count 425 Neut % (Auto) 62 Lymph % (Auto) 14 [place] % (Auto) 6 Eos % (Auto) 16 H Baso % (Auto) 1 Neut # (Auto) 8.5 H Lymph # (Auto) 2.0 [place] # (Auto) 0.8 Eos # (Auto) 2.1 H Baso # (Auto) 0.1 Immature Gran # (Auto) 0.19 H Absolute Nucleated RBC 0.00 Immature Gran % 1 H Nucleated RBC % 0 Sodium 144 Potassium 3.6 Chloride 108 H Carbon Dioxide 25.5 Anion Gap 11 BUN 51 H Creatinine 1.8 H Estim Creat Clear Calc 46.1 L eGFR 48 L BUN/Creatinine Ratio 28 H Glucose 125 H Calculated Osmolality 301 H Calcium 9.2 Corrected Calcium 9.3 Phosphorus 3.6 Magnesium 2.4 Total Bilirubin < 0.2 L AST 18 ALT 54 H Alkaline Phosphatase 236 H D Total Protein 7.0 Albumin 3.9 Globulin 3.1 Albumin/Globulin Ratio 1.3 ABG Interpretation ABG results: 01/05/25 19:43 ABG pH 7.39 ABG pCO2 40 ABG pO2 93 ABG HCO3 24 ABG O2 Saturation 98 ABG Base Excess -1 Quality Measures Quality Measures VTE prophylaxis Assessment & Plan Assessment Current Active Medications: Generic Name Dose Route Start Last Admin Trade Name Freq PRN Reason Stop Dose Admin Albuterol 2.5 mg 01/07/25 15:17 Albuterol Rt 2.5 Mg/0.5 Ml Nebu INH 02/06/25 14:58 Q6H PRN shortness of breath or wheezing Baclofen 5 mg 01/07/25 22:00 01/14/25 15:49 Baclofen 10 Mg Tablet PO 02/06/25 21:59 5 mg TID KIT Administration Gabapentin 250 Mg/5 0 ea 01/07/25 18:42 01/14/25 06:02 Ml Solution GT 02/06/25 18:41 2.5 ml Q8HR PRN Administration HICCUPS Dextrose 25 ml 01/05/25 19:11 Dextrose 50%-Water Inj 50 Ml Syringe IV 02/04/25 19:10 Q15MIN PRN BG 50-70 responsive npo pt Dextrose 50 ml 01/05/25 19:11 Dextrose 50%-Water Inj 50 Ml Syringe IV 02/04/25 19:10 Q15MIN PRN BG <50 OR BG <70 & pt unresponsive Enoxaparin Sodium 60 mg 01/07/25 21:00 01/14/25 09:16 Enoxaparin Sod Inj 60 Mg/0.6 Ml Syringe SC 01/21/25 20:59 60 mg BID KIT Administration Fludrocortisone Acetate 0.1 mg 01/07/25 21:00 01/14/25 09:16 Fludrocortisone Acetate 0.1 Mg Tablet GT 02/06/25 20:59 0.1 mg BID KIT Administration Glucagon 1 mg 01/05/25 19:11 Glucagon Inj 1 Mg Vial IM Q15MIN PRN BG <70, and no IV access Ertapenem 1,000 mg/ Sodium 50 mls @ 100 mls/hr 01/12/25 09:00 01/14/25 09:16 Chloride IV 01/19/25 08:59 100 mls/hr QDAY KIT Administration Protocol Insulin Human Lispro 0 unit 01/06/25 06:00 01/14/25 12:55 Insulin Lispro (Admelog) 1 Unit/0.01 Ml Unit SC 02/05/25 05:59 Not Given Q6HR KIT Protocol Ipratropium Fallentimber 0.5 mg 01/07/25 21:00 01/14/25 12:05 Ipratropium Rt 0.5 Mg/ 2.5 Ml Nebu INH 02/06/25 20:59 0.5 mg QIDRT KIT Administration Lactulose 20 gm 01/14/25 05:15 01/14/25 09:09 Lactulose Syrup 20 Gm/30 Ml Udc GT 02/13/25 05:14 Not Given QDAY KIT Protocol Lansoprazole 30 mg 01/10/25 09:00 01/14/25 09:16 Lansoprazole 30 Mg Tab.Rap. GT 02/07/25 08:59 30 mg QDAY KIT Administration Levalbuterol HCl 1.25 mg 01/07/25 21:00 01/14/25 12:05 Levalbuterol Rt 1.25 Mg/0.5 Ml Nebu INH 02/06/25 20:59 1.25 mg QIDRT KIT Administration Levetiracetam 1,000 mg 01/14/25 13:45 01/14/25 15:59 Levetiracetam Liqd 500 Mg/5 Ml [facility] GT 02/13/25 13:44 Not Given BID KIT Midodrine 10 mg 01/06/25 18:38 01/14/25 15:49 Midodrine 5 Mg Tablet PO 02/05/25 08:59 10 mg TID KIT Administration Multivitamins/Minerals 15 ml 01/08/25 09:00 01/14/25 09:18 Multivitamin 15 Ml Udc PO 02/07/25 08:59 15 ml QDAY KIT Administration Ondansetron HCl 4 mg 01/05/25 17:09 Ondansetron Inj 2 Mg/Ml Inj 2 Ml IV 02/04/25 17:08 Q6H PRN NAUSEA OR VOMITING Protocol Phenytoin 600 mg 01/07/25 21:00 01/14/25 09:18 Phenytoin 100 Mg/4 Ml Udc GT 02/06/25 20:59 600 mg BID KIT Administration Sodium Chloride 3 ml 01/07/25 17:55 Sodium Chloride Rt Lala 0.9% 3 Ml Nebu INH 02/06/25 17:54 PRN PRN SOLN Vitamin B Complex/Vit C/Folic Acid 1 tab 01/08/25 09:00 01/14/25 09:18 Vit B12/Vit C/Fa (Nephrovite) Tablet PO 02/07/25 08:59 1 tab QDAY KIT Administration Plan 39-year-old male with a past medical history of 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 Successfully weaned off pressors, downgrade to floors for further management. #Septic shock requiring pressor support-resolved #UTI #Pneumonia #Osteomyelitis of right ischium Sepsis is multifactorial with pneumonia and UA indicating UTI, multiple pressure ulcers, sacral osteomyelitis Chest x-ray revealed left-sided pneumonia, CT A/P showed osteomyelitis right ischium. WBC was elevated, lactic acid was 2.7, Pro-Chuck was severely elevated, patient was febrile Patient received significant IV fluids remained in shock, sent to ICU for pressor support. Patient titrated off pressors, blood pressure and stable and was downgraded to floors for further management. Blood cultures growing staph epi 1/2 bottles, probable contaminant. Urine and blood cultures final result pending. Sputum cultures pending. Repeat blood cultures negative. Urine culture positive for ESBL Proteus, sensitive to Zosyn. Sputum culture grew Klebsiella and Proteus. Vancomycin and Zosyn (started 01/05). Changed to ertapenem for full 6-week course of osteomyelitis treatment per ID recs. Patient was unable to have PICC line placed due to bilateral upper extremity DVTs, currently undergoing treatment. Will discharge patient with Augmentin for complete course of treatment for osteomyelitis. -Ertapenem 1 g IV daily (until 02/16/2025) -Transition to p.o. antibiotics (Augmentin) upon discharge -Midodrine 10 mg 3 times daily -ID consulted, appreciate recommendations #GERD #Shock liver, severe transaminitis, improving AST 814, ALT 1105, ALP 413 on admission. Suspect shock liver in setting of septic shock. Patient received sepsis protocol fluid bolus. Transaminitis improving -Will follow-up with daily CMP -PPI IV for prophylaxis #Adrenal insufficiency, suspected Patient takes 0.1 mg fludrocortisone at twice daily at home, suspect due to history of adrenal sufficiency although not clearly documented. Would explain patient's significant hypotension and continued soft blood pressure. -Resume home meds: Fludrocortisone 0.1 mg GT twice daily #Obstructive uropathy #ELDON versus ELDON on CKD On presentation creatinine was 2.9, BUN 95, EGFR of 27. Patient received IV fluids, sepsis protocol. No previous labs to compare to. Renal function improving. -Continue close monitoring -Avoid nephrotoxic agent -Renally dose medication -Monitor MARILU's -Resume home tube feeds with water flushes #Bilateral upper extremity DVT Patient was diagnosed with bilateral upper extremity DVTs on 12/10/2024, current undergoing active treatment with Lovenox -Resume home meds: Lovenox 60 mg twice daily #Seizure #Anoxic brain injury due to cardiac arrest, nonverbal Patient history as stated. Tracheostomy and PEG tube. -Resume home meds: Baclofen, Keppra, phenytoin #DM type II Home medications insulin. A1c 5%. -Insulin sliding scale -Hypoglycemic protocols in place -Restarted home tube feeding DVT prophylaxis: Lovenox GI prophylaxis: PPI Diet: PEG tube feeds Lines: PIV, tracheostomy, suprapubic catheter, nephrostomy tube, PEG tube, CODE STATUS:Full code Plan of care discussed with senior resident Dr. Pearson PGY?[address] Moore. James Crespo MD PGY?1 Attending Provider Attestation/Addendum I have discussed and was present for the essential components of the history, physical examination, diagnosis, and treatment plan with the resident. I agree with the patient's care as documented by the resident and amended herein by me. Dante Moore, . Patient seen and evaluated this AM. No acute events overnight, blood pressure soft this morning 97/64 however did improve. WBC has been labile, 13.9 today, hemoglobin stable 9.4, creatinine downtrending to 1.8 today. Unfortunately, PICC line in his left arm despite the venous system showing patent on DVT ultrasound yesterday, could not be placed. Patient cannot be sent with a peripheral IV due to the fact they need to be replaced every 3 to 4 days hence we will have to send with an oral option, Augmentin which may be suboptimal. We did discuss with infectious disease and hence will be discharged tomorrow on Augmentin 875 mg every 12 hours. Likely discharge tomorrow/4. Although this document has been carefully reviewed, there may still be some phonetic and other typographical errors. These errors are purely grammatical due to imperfections in the software program and should not be construed in any way to compromise the substance of the patient's medical care during this visit.
[2025-01-14] MEDS: Silvasorb Gel 45 ML TUBE TOP (18:16)
--- NOTE | 2025-01-14 19:27 | PC.NURSE ---
DR. PEREZ MADE AWARE THAT PT STILL HAS NOT HAD BM TODAY AFTER STARTING LACTULOSE. STATES SHE WILL INCREASE FREQUENCY IN LACTULOSE AND IF PT HAS BM, MAY BE ABLE TO DECREASE DOSE. TO PLACE ORDER.
[2025-01-14] MEDS: levETIRAcetam LIQD 500 MG/5 ML UDC 1000 MG GT (21:22)
[2025-01-15] VITALS (26 sets, daily range): BP systolic 81–125; BP diastolic 46–88; PULSE 15–142; RESP 17–29; TEMP 36.1–38.9; O2SAT 92–100; BMI 20.6; BMI 21.7
[2025-01-15] MEDS: LACTULOSE SYRUP 20 GM/30 ML UDC GT ×3 (05:33→22:08)
[2025-01-15] MEDS: MIDODRINE 5 MG TABLET 10 MG PO ×2 (05:33→20:22)
[2025-01-15] MEDS: BACLOFEN 10 MG TABLET 5 MG PO ×3 (05:35→22:09)
[2025-01-15 05:40] LABS: Basophils # (Auto) 0.1 Thou/mm3 (0.0-0.2); Basophils % (Auto) 1 % (0-2.5); Eosinophils # (Auto) 1.9 Thou/mm3 (0.0-0.5); Eosinophils % (Auto) 9 % (0-10); Hematocrit 33.1 % (41.0-53.0); Hemoglobin 10.4 g/dL (13.5-16.0); Immature Granulocytes % (Auto) 1 % (0-0); Immature Granulocytes Auto 0.28 Thou/mm3 (0.00-0.00); Lymphocytes # (Auto) 1.7 Thou/mm3 (1.0-4.8); Lymphocytes % (Auto) 8 % (10-50); Mean Corpuscular HGB Conc 31.4 g/dl (31.0-37.0); Mean Corpuscular Hemoglobin 30.1 pg (25.0-35.0); Mean Corpuscular Volume 96 fL (80-100); Monocytes # (Auto) 0.7 Thou/mm3 (0.0-0.8); Monocytes % (Auto) 3 % (0-12); Neutrophils # (Auto) 16.6 Thou/mm3 (1.8-7.7); Neutrophils % (Auto) 78 % (37-80); Nucleated Red Blood Cell % 0 /100 WBC (0); Platelet Count 471 Thou/mm3 (140-440); RDW Standard Deviation 49.9 fL (35.1-43.9); Red Blood Count 3.46 Miln/mm3 (4.50-5.90); White Blood Count 21.3 Thou/mm3 (3.8-10.6)
--- NOTE | 2025-01-15 06:06 | PC.NURSE ---
DR. WONG MADE AWARE OF HR ELEVATED IN 130'S AND SUSTAININGHira RUSSELL MD AWARE OF ELEVATED WBC. NEW ORDERS PLACED FOR MD RICHARD HOLGUIN WITH BC MADE FROM CENTRAL LINE D/T DVT'S IN [facility].
[2025-01-15 06:26] LABS: Alanine Aminotransferase 53 U/L (10-49); Albumin/Globulin Ratio 1.1 (1.2-2.2); Alkaline Phosphatase 256 U/L (46-116); Anion Gap 11 (7-16); Aspartate Amino Transferase 25 U/L (0-34); BUN/Creatinine Ratio 36 Ratio (12-20); Bilirubin,Total < 0.2 mg/dL (0.3-1.2); Blood Urea Nitrogen 72 mg/dL (9-23); Calcium 9.5 mg/dL (8.3-10.6); Calcium (Corrected) 9.5 mg/dL (8.5-10.1); Carbon Dioxide 24.9 mMol/L (20.0-31.0); Chloride 108 mMol/L (98-107); Estimated Creatinine Clearance 40.1 mL/min (>60); Globulin 3.5 gm/dL (2.3-3.5); Glucose 116 mg/dL (74-106); Magnesium 2.5 mg/dL (1.6-2.6); Osmolality,Calculated 309 (275-295); Phosphorous 3.2 mg/dL (2.4-5.1); Potassium 4.2 mMol/L (3.4-5.1); Sodium 144 mMol/L (136-145); Total Protein 7.5 gm/dL (5.7-8.2); eGFR 42 See Note
[2025-01-15] MEDS: LEVALBUTEROL RT 1.25 MG/0.5 ML NEBU INH ×4 (06:27→18:10)
[2025-01-15] MEDS: IPRATROPIUM RT 0.5 MG/ 2.5 ML NEBU INH ×4 (06:27→18:10)
[2025-01-15] MEDS: PIPER/TAZO 3.375 GM PREMIX 3.375 GM/50 ML BAG IV (06:54)
--- NOTE | 2025-01-15 08:10 | XR_ITS ---
Examination: AP chest single view Technique one AP portable semiupright chest single view Exam date and time: January 15, 2025 0823 hours COMPARISON: January 06, 2025 INDICATIONS: Worsening shortness of breath today FINDINGS: Normal heart size Significant bibasilar pneumonia Tracheostomy tube tip 8.6 cm above dudley Right internal jugular central line tip SVC IMPRESSION: Significant bibasilar pneumonia
--- NOTE | 2025-01-15 08:26 | CHAP ---
Responded to Rapid Response (08:26). Prayed silently in Hallway
[2025-01-15] MEDS: VANCOMYCIN/WATER 1250 MG IVPB 250 ML 120 MG IV (08:30)
[2025-01-15 08:34] LABS: Lactate (Lactic Acid) 1.8 mMol/L (0.4-2.0)
[2025-01-15 08:48] LABS: Partial Thromboplastin Time 32.8 Seconds (22.0-36.0); Prothrombin Time 11.3 Seconds (9.0-12.2)
[2025-01-15 09:09] LABS: Troponin I < 0.002 ng/mL (0.0-0.045)
[2025-01-15] MEDS: LANSOPRAZOLE 30 MG TAB.RAP.DR GT (09:19)
[2025-01-15] MEDS: FLUDROCORTISONE ACETATE 0.1 MG TABLET GT ×2 (09:20→22:09)
[2025-01-15] MEDS: ENOXAPARIN SOD INJ 60 MG/0.6 ML SYRINGE SC ×2 (09:20→22:07)
[2025-01-15] MEDS: VIT B12/Vit C/FA (Nephrovite) TABLET 1 TAB PO (09:20)
[2025-01-15] MEDS: MULTIVITAMIN 15 ML UDC PO (09:20)
[2025-01-15] MEDS: levETIRAcetam LIQD 500 MG/5 ML UDC 1000 MG GT ×2 (09:20→22:07)
[2025-01-15] MEDS: PHENYTOIN 100 MG/4 ML UDC 600 MG GT ×2 (09:20→22:09)
[2025-01-15] MEDS: Silvasorb Gel 45 ML TUBE TOP (09:24)
[2025-01-15] MEDS: ACETAMINOPHEN SUPP 650 MG SUPP PR ×2 (10:47→20:13)
--- NOTE | 2025-01-15 11:24 | CHAP ---
Patient was visited by the Spiritual Care Volunteer who prayed for them. (Volunteer was in the hospital from 10:27-11:24).
[2025-01-15] MEDS: INSULIN LISPRO (AdmeLOG) 1 UNIT/0.01 ML UNIT SC (11:47)
--- NOTE | 2025-01-15 12:47 | PC.SS ---
Follow up note: Patient had rapid this morning. Unable to place picc line. Spoke to physician and patient may need an alternate i.v. medication for over a month. LTAC was discussed as alternate option. SS will send inquiry on [employer] and contact patient's aunt.
--- NOTE | 2025-01-15 14:29 | ESPR_ITS ---
Documentation for date of: 01/15/25 Senior resident attestation: Patient is a 39-year-old male, past medical history of anoxic brain injury, chronically trached and pegged, suprapubic catheter and nephrostomy due to obstructive uropathy with bilateral upper extremity DVT, admitted for septic shock secondary to UTI and pneumonia. Rapid response called in a.m. due to hypoxia and increased work of breathing and tach already. Sepsis alert was initiated. Antibiotics regimen switched from ertapenem to vancomycin and Zosyn, pending updated infectious disease recommendations. Problems: #Acute hypoxic respiratory failure?mucous plugging?patient desaturated down to 80s, tachypnea increased work of breathing, RT replaced patient's tracheostomy tube, which was plugged up, leading to improvement in patient's O2 sats. Significant bibasilar pneumonia on x-ray. #Right upper extremity DVT?venous Doppler showed positive thrombus involving the right cephalic and right brachial veins, left upper extremity venous system appears open. The patient had history of bilateral upper extremity DVT diagnosed on 12/10/2024 at [facility], currently on treatment with Lovenox twice daily. Attempted to place a PICC line for continued antibiotic treatment was unsuccessful. 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 #UTI?secondary to ESBL Proteus, was sensitive to Zosyn and ertapenem. #Healthcare associated pneumonia?sputum cultures grew Pseudomonas, Proteus and Klebsiella, completed 7 days of IV antibiotics Zosyn. Rapid response called in a.m. due to hypoxia and increased work of breathing and tach already. Sepsis alert was initiated. Antibiotics regimen switched from ertapenem to vancomycin and Zosyn, pending updated infectious disease recommendations. #Osteomyelitis of right ischium?infectious disease on board, recommended continuing ertapenem 1 g daily through 02/16/2025, urine culture positive for ESBL Proteus also sensitive to ertapenem. Unable to place a PICC line due to poor venous access, will reach out to ID for alternate antibiotics, as microbiology of pathogen sensitive to Augmentin which can be given via G-tube. Also concern for decubitus pressure induced ulcer, with superimposed osteomyelitis. Per ID, first line rx remains iv antibiotics will order PICC line placement for left upper arm and continue with ertapenem. #Shock liver?improving #Obstructive uropathy?improving BUN and creatinine, BUN still persistently high in the 50s, likely secondary to dehydration, also hyperosmolar and mild hypernatremia. Patient evaluated and examined at the bedside, plan of care discussed with rest of the team including my attending physician, except as noted. Lili PGY2 Subjective Subjective Interval history: Overnight: Patient had increased leukocytosis and tachycardia. Repeat blood cultures drawn, antibiotics changed to vancomycin and cefepime. Patient seen and examined at bedside. Patient had a rapid response during which she was agitated, after deep suctioning and tracheostomy tube placement patient became calm, minimally responsive. Change antibiotics for Pseudomonas coverage. PICC line was unable to be placed, will attempt to transfer to LTAC for long-term management of peripheral IV antibiotics and ventilator. Exam Vital Signs Temp Pulse Resp BP Pulse Ox O2 Del Method O2 Flow Rate 101.8 F H 133 H 22 H 125/88 H 100 Mechanical Ventilation 50 01/15/25 10:47 01/15/25 14:23 01/15/25 12:46 01/15/25 14:23 01/15/25 12:46 01/15/25 10:00 01/15/25 10:00 FiO2 40 01/15/25 12:46 Narrative Exam PE: Gen: Chronically ill-appearing. HEENT: NCAT, MMM, anicteric conjunctivae. Tracheostomy to vent. CVS: normal S1 and S2. RRR. No M/R/G. Resp: CTA B/L. No rhonchi, rales, crackles or wheezing. Poor lung sounds due to low respiratory effort. Abd: soft, non-tender, non-distended. PEG tube. Nephrostomy tube. Suprapubic Lal cath. MSK: Bilateral lower extremity contractures. Dry flaky skin bilateral lower extremities. Neuro: Flexor posturing to noxious stimuli. Eyes open but does not track. Nonverbal. Objective Labs 01/15/25 05:21 01/15/25 05:21 Labs: Laboratory Results - last 24 hr 01/15/25 01/15/25 05:21 08:26 WBC 21.3 H D RBC 3.46 L Hgb 10.4 L Hct 33.1 L MCV 96 MCH 30.1 MCHC 31.4 RDW Std Deviation 49.9 H Plt Count 471 H D Neut % (Auto) 78 Lymph % (Auto) 8 L [place] % (Auto) 3 Eos % (Auto) 9 Baso % (Auto) 1 Neut # (Auto) 16.6 H Lymph # (Auto) 1.7 [place] # (Auto) 0.7 Eos # (Auto) 1.9 H Baso # (Auto) 0.1 Immature Gran # (Auto) 0.28 H Absolute Nucleated RBC 0.00 Immature Gran % 1 H Nucleated RBC % 0 PT 11.3 INR 1.0 APTT 32.8 Sodium 144 Potassium 4.2 D Chloride 108 H Carbon Dioxide 24.9 Anion Gap 11 BUN 72 H Creatinine 2.0 H Estim Creat Clear Calc 40.1 L eGFR 42 L BUN/Creatinine Ratio 36 H Glucose 116 H Calculated Osmolality 309 H Lactic Acid 1.8 Calcium 9.5 Corrected Calcium 9.5 Phosphorus 3.2 Magnesium 2.5 Total Bilirubin < 0.2 L AST 25 ALT 53 H Alkaline Phosphatase 256 H D Troponin I < 0.002 Total Protein 7.5 Albumin 4.0 Globulin 3.5 Albumin/Globulin Ratio 1.1 L Procalcitonin 1.20 H ABG Interpretation ABG results: 01/05/25 19:43 ABG pH 7.39 ABG pCO2 40 ABG pO2 93 ABG HCO3 24 ABG O2 Saturation 98 ABG Base Excess -1 Quality Measures Quality Measures VTE prophylaxis Assessment & Plan Assessment Current Active Medications: Generic Name Dose Route Start Last Admin Trade Name Freq PRN Reason Stop Dose Admin Acetaminophen 650 mg 01/15/25 10:32 01/15/25 10:47 Acetaminophen Supp 650 Mg Supp AL 02/14/25 10:31 650 mg Q6HR PRN Administration Fever > 100.4 or pain 1-3 Albuterol 2.5 mg 01/07/25 15:17 Albuterol Rt 2.5 Mg/0.5 Ml Nebu INH 02/06/25 14:58 Q6H PRN shortness of breath or wheezing Baclofen 5 mg 01/07/25 22:00 01/15/25 05:35 Baclofen 10 Mg Tablet PO 02/06/25 21:59 5 mg TID KIT Administration Gabapentin 250 Mg/5 0 ea 01/07/25 18:42 01/14/25 06:02 Ml Solution GT 02/06/25 18:41 2.5 ml Q8HR PRN Administration HICCUPS Dextrose 25 ml 01/05/25 19:11 Dextrose 50%-Water Inj 50 Ml Syringe IV 02/04/25 19:10 Q15MIN PRN BG 50-70 responsive npo pt Dextrose 50 ml 01/05/25 19:11 Dextrose 50%-Water Inj 50 Ml Syringe IV 02/04/25 19:10 Q15MIN PRN BG <50 OR BG <70 & pt unresponsive Enoxaparin Sodium 60 mg 01/07/25 21:00 01/15/25 09:20 Enoxaparin Sod Inj 60 Mg/0.6 Ml Syringe SC 01/21/25 20:59 60 mg BID KIT Administration Fludrocortisone Acetate 0.1 mg 01/07/25 21:00 01/15/25 09:20 Fludrocortisone Acetate 0.1 Mg Tablet GT 02/06/25 20:59 0.1 mg BID KIT Administration Glucagon 1 mg 01/05/25 19:11 Glucagon Inj 1 Mg Vial IM Q15MIN PRN BG <70, and no IV access Cefepime HCl 2 gm/ Sodium 50 mls @ 100 mls/hr 01/15/25 11:00 Chloride IV 01/22/25 10:59 Q12HR [facility] Insulin Human Lispro 0 unit 01/06/25 06:00 01/15/25 11:47 Insulin Lispro (Admelog) 1 Unit/0.01 Ml Unit SC 02/05/25 05:59 1 unit Q6HR KIT Administration Protocol Ipratropium [place] 0.5 mg 01/07/25 21:00 01/15/25 12:46 Ipratropium Rt 0.5 Mg/ 2.5 Ml Nebu INH 02/06/25 20:59 0.5 mg QIDRT KIT Administration Lactulose 20 gm 01/14/25 22:00 01/15/25 05:33 Lactulose Syrup 20 Gm/30 Ml Udc GT 02/13/25 21:59 20 gm TID KIT Administration Protocol Lansoprazole 30 mg 01/10/25 09:00 01/15/25 09:19 Lansoprazole 30 Mg Tab.Nancy. GT 02/07/25 08:59 30 mg QDAY KIT Administration Levalbuterol HCl 1.25 mg 01/07/25 21:00 01/15/25 12:46 Levalbuterol Rt 1.25 Mg/0.5 Ml Nebu INH 02/06/25 20:59 1.25 mg QIDRT KIT Administration Levetiracetam 1,000 mg 01/14/25 13:45 01/15/25 09:20 Levetiracetam Liqd 500 Mg/5 Ml Udc GT 02/13/25 13:44 500 mg BID KIT Administration Midodrine 10 mg 01/06/25 18:38 01/15/25 14:23 Midodrine 5 Mg Tablet PO 02/05/25 08:59 Not Given TID KIT Multivitamins/Minerals 15 ml 01/08/25 09:00 01/15/25 09:20 Multivitamin 15 Ml Udc PO 02/07/25 08:59 15 ml QDAY KIT Administration Ondansetron HCl 4 mg 01/05/25 17:09 Ondansetron Inj 2 Mg/Ml Inj 2 Ml IV 02/04/25 17:08 Q6H PRN NAUSEA OR VOMITING Protocol Phenytoin 600 mg 01/07/25 21:00 01/15/25 09:20 Phenytoin 100 Mg/4 Ml Udc GT 02/06/25 20:59 600 mg BID KIT Administration Sodium Chloride 3 ml 01/07/25 17:55 Sodium Chloride Rt Lala 0.9% 3 Ml Nebu INH 02/06/25 17:54 PRN PRN SOLN Vitamin B Complex/Vit C/Folic Acid 1 tab 01/08/25 09:00 01/15/25 09:20 Vit B12/Vit C/Fa (Nephrovite) Tablet PO 02/07/25 08:59 1 tab QDAY KIT Administration Plan 39-year-old male with a past medical history of 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 Successfully weaned off pressors, downgrade to floors for further management. #Septic shock requiring pressor support-resolved #UTI #Pneumonia #Osteomyelitis of right ischium Sepsis is multifactorial with pneumonia and UA indicating UTI, multiple pressure ulcers, sacral osteomyelitis Chest x-ray revealed left-sided pneumonia, CT A/P showed osteomyelitis right ischium. WBC was elevated, lactic acid was 2.7, Pro-Chuck was severely elevated, patient was febrile Patient received significant IV fluids remained in shock, sent to ICU for pressor support. Patient titrated off pressors, blood pressure and stable and was downgraded to floors for further management. Blood cultures growing staph epi 1/2 bottles, probable contaminant. Urine and blood cultures final result pending. Sputum cultures pending. Repeat blood cultures negative. Urine culture positive for ESBL Proteus, sensitive to Zosyn. Sputum culture grew Klebsiella and Proteus. Vancomycin and Zosyn (started 01/05). Changed to ertapenem for full 6-week course of osteomyelitis treatment per ID recs. Patient was unable to have PICC line placed due to bilateral upper extremity DVTs, currently undergoing treatment. Patient developed increasing leukocytosis, tachycardia. Patient also had episode desaturation prompting rapid response, which improved with deep suctioning and tracheostomy change. Chest x-ray showed right lower lobe consolidations. Antibiotic management changed for better pseudomonal coverage. Planning to reach out for LTAC placement for management of peripheral IV antibiotics and ventilator. -Zosyn 4.5 g IV every 6 hours (until 02/16/2025) -Cefepime 2 g IV every 12 hours (01/15/2025?01/22/2025) -Midodrine 10 mg 3 times daily -ID consulted, appreciate recommendations #Constipation Patient not have bowel movement for 5 days despite treatment with lactulose. Lactulose dose increased. -Lactulose 20 g G-tube 3 times daily #GERD #Shock liver, severe transaminitis, improving AST 814, ALT 1105, ALP 413 on admission. Suspect shock liver in setting of septic shock. Patient received sepsis protocol fluid bolus. Transaminitis improving -Will follow-up with daily CMP -PPI IV for prophylaxis #Adrenal insufficiency, suspected Patient takes 0.1 mg fludrocortisone at twice daily at home, suspect due to history of adrenal sufficiency although not clearly documented. Would explain patient's significant hypotension and continued soft blood pressure. -Resume home meds: Fludrocortisone 0.1 mg GT twice daily #Obstructive uropathy #ELDON versus ELDON on CKD On presentation creatinine was 2.9, BUN 95, EGFR of 27. Patient received IV fluids, sepsis protocol. No previous labs to compare to. Renal function improving. Possibly baseline for patient. -Continue close monitoring -Avoid nephrotoxic agent -Renally dose medication -Monitor MARILU's -Resume home tube feeds with water flushes #Bilateral upper extremity DVT Patient was diagnosed with bilateral upper extremity DVTs on 12/10/2024, current undergoing active treatment with Lovenox -Resume home meds: Lovenox 60 mg twice daily #Seizure #Anoxic brain injury due to cardiac arrest, nonverbal Patient history as stated. Tracheostomy and PEG tube. -Resume home meds: Baclofen, Keppra, phenytoin #DM type II Home medications insulin. A1c 5%. -Insulin sliding scale -Hypoglycemic protocols in place -Restarted home tube feeding DVT prophylaxis: Lovenox GI prophylaxis: PPI Diet: PEG tube feeds Lines: PIV, tracheostomy, suprapubic catheter, nephrostomy tube, PEG tube, CODE STATUS:Full code Plan of care discussed with senior resident Dr. Pearson PGY?[address] Moore. James Crespo MD PGY?1 Attending Provider Attestation/Addendum I have discussed and was present for the essential components of the history, physical examination, diagnosis, and treatment plan with the resident. I agree with the patient's care as documented by the resident and amended herein by me. Dante Moore, DO. Patient seen and evaluated this AM. No acute events overnight however rapid response called this morning for respiratory distress. Patient appeared to have a clogged trach tube which was replaced, patient readily improved, peak pressures as well as plateau pressure also decreased. Tmax overnight 100.2 however 101.8 this morning. Ertapenem stopped, patient restarted on Zosyn and cefepime for double pseudomonal coverage. Repeat blood cultures were ordered, infectious disease consulted, appreciate recommendations. Of note, no PICC line could be placed for the patient for long-term IV antibiotics, we are considering DC to LTAC when the time comes and hence, may be a standard central line can be accommodated or if peripheral line with regular changes could be accommodated however he is a difficult stick per nursing staff. Will continue to monitor closely. Although this document has been carefully reviewed, there may still be some phonetic and other typographical errors. These errors are purely grammatical due to imperfections in the software program and should not be construed in any way to compromise the substance of the patient's medical care during this visit.
--- NOTE | 2025-01-15 14:48 | EVENTNT_ITS ---
Documentation for date of: 01/15/25 Event Note Event Note: Rapid response was called at 0807 due to tachycardia, desaturation, and increased distress. Patient was found to have O2 saturation as low as 78%, heart rate up to 140s, patient was clearly agitated. Patient received deep suct ioning by RT and had tracheostomy tube replaced. Catheter showed right lower lobe consolidation. Lactic acid unremarkable, troponin unremarkable, Pro-Chuck significantly decreased from previous levels. Following deep suctioning and tracheostomy tube placement, saturations increased over 90%, patient became less distressed and more calm. Response ended at 0820. Plan of care discussed with senior resident Dr. Pearson PGY?[address] Moore. James Crespo MD PGY?1
[2025-01-15] MEDS: CEFEPIME INJ 2 GM in SODIUM CHLORIDE 0.9% (Popper) 50 ML IV ×2 (17:26→22:07)
[2025-01-15] MEDS: RINGERS LACTATED 1000 ML 500 ML 999 ML IV (17:26)
--- NOTE | 2025-01-15 19:13 | PC.NURSE ---
0808- S[employer]SPORTATION DIRECTOR was called for low sats, tachypnea, tachycardia, cxr, labs done.
[2025-01-15] MEDS: SODIUM CHLORIDE 0.9% 250 ML 250 ML 999 ML IV (20:17)
[2025-01-15] MEDS: SODIUM CHLORIDE 0.9% 500 ML 500 ML 999 ML IV (22:11)
[2025-01-15 22:12] LABS: Lactate (Lactic Acid) 1.4 mMol/L (0.4-2.0)
--- NOTE | 2025-01-15 22:42 | PC.NURSE ---
GROCERY SPECIALIST called for pt due to hypotension. MD ordered lactic and 1L NS bolus.
--- NOTE | 2025-01-15 22:59 | PC.NURSE ---
verified with MD Buenrostro on L extremity limb alert. verified that it is not required due to follow up US being clear
--- NOTE | 2025-01-15 23:36 | PD.HHCONS ---
HPI Consultation - Hospitalist Data of Consult Requesting Physician: Johan Moore DO Primary Care Provider: Gerri Bentley MD Consult Narrative History of present illness: Patient is a 39 years old male with past medical history of anoxic brain injury secondary to cardiac arrest, status post tracheostomy/mechanical ventilation and PEG tube placement, suprapubic catheter, right nephrostomy tube secondary to obstructive uropathy and bilateral upper extremity DVT who was admitted on 01/05/2025 to ICU for management of septic shock secondary to UTI, pneumonia and osteomyelitis of right ischium. Patient received Levophed, IV antibiotics, fluid, next day his blood pressure improved and was able to get off vasopressors and was transferred to telemetry. Patient then started showing improvement, was found to have Pseudomonas, Klebsiella and Proteus on sputum culture. Infectious disease was also following. Patient was initially on vancomycin and Zosyn, was changed to ertapenem and was plan to discharge with 6-week course of antibiotics. Patient continued to be on midodrine 10 mg 3 times daily throughout the course. PICC line was ordered but patient had bilateral upper extremity DVT, the line was unsuccessful, and the plan was to discharge today with a central line and IV antibiotics. But this morning, patient had leukocytosis and tachycardia. Repeat blood cultures were drawn, antibiotics switched to vancomycin and cefepime. Patient also had a rapid response this morning, he was agitated, underwent deep suctioning of tracheostomy tube. He also received 500 cc IV fluid bolus as his blood pressure was becoming soft. Patient again have rapid response this evening due to low blood pressure. Patient had MAP around 58 at bedside. Is also noted to have fever this morning as well as this time of 202.1 ?F. Lactate level was obtained, 1.4. Patient received another 1250 cc of IV normal saline bolus. Despite the boluses, patient continued to have MAP below 60. We will transfer him to ICU for management of septic shock and start him on vasopressors. cc:: cc: Johan Moore DO Review of Systems Review of Systems ROS Unobtainable: unobtainable due to mental status Meds Home Medications and Allergies Home Medications ?Medication ?Instructions ?Recorded ?Confirmed ?Type Multivitamin And Mineral oral 15 ml G-tube QDAY dietary 01/06/25 01/06/25 History liquid supplement acetaminophen 500 mg/15 mL oral 1,000 mg feeding tube Q8H PRN 01/06/25 01/06/25 History liquid fever or pain acetylcysteine 200 mg/mL (20 %) 2 ml inhalation Q8H PRN COUGH 01/06/25 01/06/25 History solution albuterol sulfate 2.5 mg/3 mL 2.5 mg inhalation Q6H PRN 01/06/25 01/06/25 History (0.083 %) solution for nebulization shortness of breath or wheezing amino acids-protein hydrolysate 15 1 ea PO BID For pressure ulcer of 01/06/25 01/06/25 History gram-100 kcal/30 mL oral liquid sacral region, stage 4 (Pro-Stat Sugar Free) baclofen 5 mg tablet 5 mg feeding tube TID 01/06/25 01/06/25 History bisacodyl 10 mg rectal suppository 10 mg LA QDAY PRN for no BM 01/06/25 01/06/25 History (Dulcolax (bisacodyl)) carboxymethylcellulose sodium 0.5 1 drp Both eyes QDAY lubricant for 01/06/25 01/06/25 History % eye drops in a dropperette eyes chlorhexidine gluconate 0.12 % 15 ml PO BID 01/06/25 01/06/25 History mouthwash diazepam 10 mg/spray (0.1 mL) 10 mg intranasal PRN 01/06/25 01/06/25 History nasal spray (Valtoco) enoxaparin 60 mg/0.6 mL 60 mg subcut BID 01/06/25 01/06/25 History subcutaneous syringe fludrocortisone 0.1 mg tablet 0.1 mg feeding tube BID adrenal 01/06/25 01/06/25 History insufficiency fluocinonide 0.05 % topical 1 applic topical .qshift flaky/dry 01/06/25 01/06/25 History solution skin gabapentin 250 mg/5 mL oral 250 mg feeding tube Q8H hiccups 01/06/25 01/06/25 History solution guaifenesin 100 mg/5 mL oral liquid 100 mg PO Q6H PRN cough 01/06/25 01/06/25 History ipratropium 0.5 mg-albuterol 3 mg 3 ml inhalation QID wheezing 01/06/25 01/06/25 History (2.5 mg base)/3 mL nebulization soln levetiracetam 100 mg/mL oral 1,000 mg feeding tube BID 01/06/25 01/14/25 History solution lorazepam 0.5 mg tablet 0.5 mg feeding tube Q6H agitation 01/06/25 01/06/25 History magnesium hydroxide 400 mg/5 mL 400 mg PO QDAY PRN NO BM 01/06/25 01/06/25 History oral suspension (Milk of Magnesia) metoclopramide HCl 5 mg tablet 5 mg feeding tube TID 01/06/25 01/06/25 History midodrine 10 mg tablet 10 mg feeding tube TID hypotension 01/06/25 01/06/25 History pantoprazole 40 mg granules 40 mg PO QDAY 01/06/25 01/06/25 History delayed-release for susp in packet (Protonix) phenytoin 125 mg/5 mL oral 600 mg G-tube BID seizures 01/06/25 01/06/25 History suspension sennosides 8.8 mg/5 mL oral syrup 10 ml PO BID 01/06/25 01/06/25 History (senna) sodium phosphates 19 gram-7 118 ml LA QDAY PRN NO BM 01/06/25 01/06/25 History gram/118 mL enema (Fleet Enema) vitamin B complex-vitamin C-folic 1 tab PO QDAY 01/06/25 01/06/25 History acid 0.8 mg tablet (Nephro-Autumn) Allergies Allergy/AdvReac Type Severity Reaction Status Date / Time No Known Allergies Allergy Verified 01/11/25 11:40 Exam Vital Signs Temp Pulse Resp BP Pulse Ox O2 Del Method O2 Flow Rate 101.0 F H 132 H 26 H 84/67 L 92 L Mechanical Ventilation 50 01/15/25 22:22 01/15/25 21:52 01/15/25 21:52 01/15/25 21:52 01/15/25 21:52 01/15/25 18:00 01/15/25 18:00 FiO2 40 01/15/25 21:52 Narrative Gen: Chronically ill-appearing, does not appear to be in distress HEENT: NCAT, MMM, anicteric conjunctivae, tracheostomy to mechanical ventilation, noted to have secretions around tracheostomy tube CVS: S1 and S2 heard without murmur. RRR. Resp: Decreased air entry bilaterally, no crackles or wheezing Abd: Soft, non-distended. Noted PEG tube, nephrostomy tube, suprapubic Lal catheter MSK: Bilateral lower extremity contractures. Dry flaky skin bilateral lower extremities. Neuro: Patient is nonverbal, flexor posturing to noxious stimuli. Eyes open but does not track. Results - Hospitalist Labs Diagrams: 01/15/25 05:21 01/15/25 05:21 Labs: Short CBC 01/15/25 Range/Units 05:21 WBC 21.3 H D (3.8-10.6) Thou/mm3 Hgb 10.4 L (13.5-16.0) g/dL Hct 33.1 L (41.0-53.0) % Plt Count 471 H D (140-440) Thou/mm3 BMP 01/15/25 05:21 Sodium 144 Potassium 4.2 D Chloride 108 H Carbon Dioxide 24.9 BUN 72 H Creatinine 2.0 H Glucose 116 H Calcium 9.5 Cardiac Enzymes 01/15/25 Range/Units 08:26 Troponin I < 0.002 (0.0-0.045) ng/mL Liver Function 01/15/25 Range/Units 05:21 Total Bilirubin < 0.2 L (0.3-1.2) mg/dL AST 25 (0-34) U/L ALT 53 H (10-49) U/L Alkaline Phosphatase 256 H D (46-116) U/L Albumin 4.0 (3.5-5.0) gm/dL ABG Interpretation ABG results: 01/05/25 19:43 ABG pH 7.39 ABG pCO2 40 ABG pO2 93 ABG HCO3 24 ABG O2 Saturation 98 ABG Base Excess -1 Assessment & Plan -Hospitalist Additional Plan Additional Plan: Patient is a 39 years old male with past medical history of anoxic brain injury secondary to cardiac arrest, status post tracheostomy/mechanical ventilation and PEG tube placement, suprapubic catheter, right nephrostomy tube secondary to obstructive uropathy and bilateral upper extremity DVT being managed for pneumonia, UTI, osteomyelitis. Started having fever, tachycardia and leukocytosis along with hypotension not responding to IV fluid boluses. Transferred to ICU for management of septic shock. 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 Blood cultures from 01/07/2025 were negative. Sputum Gram stain from this morning shows 4+ mixed sotero, blood culture, urine culture and sputum culture from this morning are pending. CT chest/abdomen/pelvis from 01/05/2025 showed osteomyelitis of right ischium and soft tissue to Chest x-ray revealed left-sided pneumonia, Recommend ultrasound soft tissue right lower lateral abdominal wall to assess soft tissue nodules in the subcutaneous tissue, the largest 22 mm, Soft tissue defects Patient was started on Zosyn and cefepime this morning for double pseudomonal coverage Given patient's clinical worsening, we will add vancomycin to cover for MRSA as well Started on Levophed gtt. Respiratory #Chronic tracheostomy tube on mechanical ventilation # Bibasilar pneumonia Patient on broad-spectrum IV antibiotics GI #Patient has a PEG tube placed #GERD We will continue with lansoprazole Continue tube feeding, registered dietitian following Renal #Obstructive uropathy # CKD Patient has a nephrostomy tube as well as suprapubic catheter Kidney function appears to be stable with BUN/creatinine of 72/2.0 We will continue to monitor closely, we will avoid nephrotoxins as possible Endocrine #Diabetes mellitus type 2 Home medications insulin Currently on insulin sliding scale, hypoglycemia protocol in place Hematology #Leukocytosis #Anemia of chronic disease WBC count worsened from 13.7 yesterday to 21.3 this morning. Hemoglobin stable at 10.4 Will continue to monitor closely with daily CBCs ID # septic shock #Pneumonia #Osteomyelitis of right ischium New set of cultures obtained Patient on broad-spectrum IV antibiotics Infectious disease following DVT prophylaxis: Heparin SC GI prophylaxis: Lansoprazole Diet: PEG tube feeding CODE STATUS:Full code Disposition: ICU for septic shock requiring pressor Carin Olivo MD Quality Measures Quality Measures VTE prophylaxis
[2025-01-16] VITALS (96 sets, daily range): BP systolic 79–120; BP diastolic 45–75; PULSE 97–127; RESP 14–40; TEMP 36.2–38.2; O2SAT 87–99; BMI 22.5
[2025-01-16] MEDS: SODIUM CHLORIDE 0.9% 500 ML 500 ML 999 ML IV (00:27)
[2025-01-16] MEDS: GABAPENTIN 250 MG/5 ML GT (02:29)
[2025-01-16] MEDS: Norepinephrine/NS 16mg/250ml 16 MG/250 ML BAG 2.868 MG IV (03:18)
[2025-01-16] MEDS: LACTULOSE SYRUP 20 GM/30 ML UDC GT ×3 (05:13→21:16)
[2025-01-16] MEDS: BACLOFEN 10 MG TABLET 5 MG PO ×3 (05:13→21:16)
[2025-01-16] MEDS: LEVALBUTEROL RT 1.25 MG/0.5 ML NEBU INH ×4 (06:18→21:49)
[2025-01-16] MEDS: IPRATROPIUM RT 0.5 MG/ 2.5 ML NEBU INH ×4 (06:18→21:49)
[2025-01-16] MEDS: INSULIN LISPRO (AdmeLOG) 1 UNIT/0.01 ML UNIT SC (06:18)
[2025-01-16 06:31] LABS: Basophils # (Auto) 0.2 Thou/mm3 (0.0-0.2); Basophils % (Auto) 1 % (0-2.5); Eosinophils # (Auto) 0.6 Thou/mm3 (0.0-0.5); Eosinophils % (Auto) 2 % (0-10); Immature Granulocytes % (Auto) 1 % (0-0); Immature Granulocytes Auto 0.32 Thou/mm3 (0.00-0.00); Lymphocytes # (Auto) 2.2 Thou/mm3 (1.0-4.8); Lymphocytes % (Auto) 6 % (10-50); Mean Corpuscular HGB Conc 30.7 g/dl (31.0-37.0); Mean Corpuscular Hemoglobin 29.2 pg (25.0-35.0); Mean Corpuscular Volume 95 fL (80-100); Monocytes % (Auto) 3 % (0-12); Neutrophils # (Auto) 29.6 Thou/mm3 (1.8-7.7); Neutrophils % (Auto) 88 % (37-80); Nucleated Red Blood Cell % 0 /100 WBC (0); Platelet Count 408 Thou/mm3 (140-440); RDW Standard Deviation 49.9 fL (35.1-43.9); Red Blood Count 2.84 Miln/mm3 (4.50-5.90); White Blood Count 33.7 Thou/mm3 (3.8-10.6)
[2025-01-16 06:37] LABS: Hemoglobin 8.3 g/dL (13.5-16.0)
[2025-01-16] MEDS: VASOPRESSIN IN NS IVPB 20 UNIT/100 ML BAG 9 UNIT IV ×2 (06:38→17:00)
[2025-01-16 06:48] LABS: Alanine Aminotransferase 151 U/L (10-49); Albumin, Serum 3.4 gm/dL (3.5-5.0); Albumin/Globulin Ratio 1.2 (1.2-2.2); Alkaline Phosphatase 257 U/L (46-116); Anion Gap 11 (7-16); Aspartate Amino Transferase 69 U/L (0-34); BUN/Creatinine Ratio 38 Ratio (12-20); Bilirubin,Total 0.2 mg/dL (0.3-1.2); Blood Urea Nitrogen 96 mg/dL (9-23); Calcium 8.7 mg/dL (8.3-10.6); Calcium (Corrected) 9.2 mg/dL (8.5-10.1); Carbon Dioxide 22.1 mMol/L (20.0-31.0); Chloride 110 mMol/L (98-107); Creatinine (Component) 2.5 mg/dL (0.6-1.3); Globulin 2.9 gm/dL (2.3-3.5); Glucose 155 mg/dL (74-106); Magnesium 2.6 mg/dL (1.6-2.6); Osmolality,Calculated 317 (275-295); Phosphorous 2.5 mg/dL (2.4-5.1); Potassium 3.5 mMol/L (3.4-5.1); Sodium 143 mMol/L (136-145); Total Protein 6.3 gm/dL (5.7-8.2); Vancomycin,Random 26.1 mcg/mL; eGFR 32 See Note
--- NOTE | 2025-01-16 06:59 | XR_ITS ---
Examination: AP chest single view TECHNIQUE: AP portable semiupright chest single view Presented time: January 16, 2025 0713 hours Comparison January 15, 2025 INDICATIONS: Difficulty breathing this week, pneumonia on earlier chest imaging FINDINGS: Significant bibasilar pneumonia Tracheostomy tube tip 8.9 cm above dudley. Right internal jugular central line tip satisfactory position. Normal heart size IMPRESSION: Significant bibasilar pneumonia remains
[2025-01-16] MEDS: PHENYTOIN 100 MG/4 ML UDC 600 MG GT ×2 (09:30→20:12)
[2025-01-16] MEDS: Silvasorb Gel 45 ML TUBE TOP (09:30)
[2025-01-16] MEDS: levETIRAcetam LIQD 500 MG/5 ML UDC 1000 MG GT ×2 (09:59→20:06)
[2025-01-16] MEDS: FLUDROCORTISONE ACETATE 0.1 MG TABLET GT ×2 (09:59→20:12)
[2025-01-16] MEDS: MULTIVITAMIN 15 ML UDC PO (09:59)
[2025-01-16] MEDS: ENOXAPARIN SOD INJ 60 MG/0.6 ML SYRINGE SC ×2 (09:59→20:05)
[2025-01-16] MEDS: LANSOPRAZOLE 30 MG TAB.RAP.DR GT (10:03)
[2025-01-16] MEDS: VIT B12/Vit C/FA (Nephrovite) TABLET 1 TAB PO (10:03)
[2025-01-16] MEDS: MEROPENEM INJ 1,000 MG in SODIUM CHLORIDE 0.9% (Popper) 50 ML 100 MG IV ×2 (10:03→20:05)
--- NOTE | 2025-01-16 12:44 | XR_ITS ---
Examination: AP chest single view Technique: AP portable semiupright chest single view Exam date and time: January 16, 2025 1302 hrs. Comparison January 16, 2025 0713 hrs. Indications: Post central line placement Findings: Left internal jugular central line tip SVC satisfactory position Right internal jugular central line satisfactory position No pneumothorax Significant bibasilar pneumonia Tracheostomy tube stable position Impression: Interval left internal jugular central line tip SVC satisfactory position
--- NOTE | 2025-01-16 12:45 | PD.RESPROC ---
Procedures Procedure Date / Time 01/16/25 11:35 Procedural Time Out Time out performed: yes Procedure Narrative Procedure Narrative: Attending Attestation: I was present for entire procedure. No immediate complications. Patient tolerated procedure well. Minimal blood loss. Post procedure chest film excluded PTX and confirmed adequate position of the catheter. Central Line Placement L Supraclavicular : Indication(s): shock Informed consent obtained: obtained from surrogate decision maker Time out done, and the following verified: correct patient, side and site, procedure, patient position and implants and/or equipment Patient placed on monitor/pulse ox: Yes Hand Hygiene: alcohol-based hand rub Max Sterile Barrier Techniques used: cap, mask, sterile gown, sterile gloves and sterile full body drape Central line prep: Chlorhexidine scrub Local anesthesia used: lidocaine 1% Amount of anesthesia used (mL): 10 Ultrasound used for placement: Yes Sterile Technique if Ultrasound used, including sterile gel: yes Central line lumen inserted: triple Post procedure: sutured in place, good blood return, all ports aspirated, flushed, capped and sterile dressing applied Post procedure x-ray: tip of catheter in good position and no pneumothorax seen Patient tolerated procedure: well EBL(ml): 5 Complications: none
--- NOTE | 2025-01-16 12:45 | PD.RESPRO ---
Documentation for date of: 01/16/25 Subjective Subjective Interval history: Patient is a 39 years old male with past medical history of anoxic brain injury secondary to cardiac arrest, status post tracheostomy/mechanical ventilation and PEG tube placement, suprapubic catheter, right nephrostomy tube secondary to obstructive uropathy and bilateral upper extremity DVT who was admitted on 01/05/2025 to ICU for management of septic shock secondary to UTI, pneumonia and osteomyelitis of right ischium. Patient received Levophed, IV antibiotics, fluid, next day his blood pressure improved and was able to get off vasopressors and was transferred to telemetry. Patient then started showing improvement, was found to have Pseudomonas, Klebsiella and Proteus on sputum culture. Infectious disease was also following. Patient was initially on vancomycin and Zosyn, was changed to ertapenem and was plan to discharge with 6-week course of antibiotics. Patient continued to be on midodrine 10 mg 3 times daily throughout the course. PICC line was ordered but patient had bilateral upper extremity DVT, the line was unsuccessful, and the plan was to discharge today with a central line and IV antibiotics. But this morning, patient had leukocytosis and tachycardia. Repeat blood cultures were drawn, antibiotics switched to vancomycin and cefepime. Patient also had a rapid response this morning, he was agitated, underwent deep suctioning of tracheostomy tube. He also received 500 cc IV fluid bolus as his blood pressure was becoming soft. Patient again have rapid response this evening due to low blood pressure. Patient had MAP around 58 at bedside. Is also noted to have fever this morning as well as this time of 202.1 ?F. Lactate level was obtained, 1.4. Patient received another 1250 cc of IV normal saline bolus. Despite the boluses, patient continued to have MAP below 60. We will transfer him to ICU for management of septic shock and start him on vasopressors. 01/16/2025: Patient was seen and examined at bedside this morning. Patient nonverbal at baseline. Upon chart review patient has multiple drugs growing up multiple cultures including trachea, sputum, blood, and urine. Patient was receiving cefepime and vancomycin, will continue with the vancomycin, but will switch to meropenem today. Will also change patient's right central line as well as his suprapubic catheter in the setting of possible bacterial seeding. Spoke with patient's son who is medical decision-maker via the phone to which she consented to place patient's left central line. Patient tolerated procedure well. Also gave a 500 mL bolus of LR patient is seizing volume depleted. Patient still on Levophed, but will continue to wean off. Exam Vital Signs Temp Pulse Resp BP Pulse Ox O2 Del Method O2 Flow Rate 99.3 F 108 H 30 H 93/61 97 Mechanical Ventilation 50 01/16/25 04:00 01/16/25 12:22 01/16/25 11:00 01/16/25 11:00 01/16/25 12:22 01/16/25 04:00 01/15/25 18:00 FiO2 60 01/16/25 12:22 Narrative Exam General: Nonverbal, but moving all extremities. Ill-appearing thin male. Eyes: Pupils sluggish, extraocular muscles appear intact, but patient unable to follow commands therefore cannot trace. Ears: No visible ear discharge Nose: No visible nasal discharge. Mouth/Throat: Moist mucous membranes, no redness, no lesions. Neck: Neck supple, no cervical lymphadenopathy. Right IJ, tracheostomy in place Lungs: Bronchial breath sounds bilaterally, No accessory muscle use. Cardio: Normal S1/S2, regular rhythm, no murmurs, no JVD or carotid bruits. Abdomen: Soft, non-tender, no palpable masses, peristalsis present, no guarding or rebound. PEG tube in place with no discharge, suprapubic Lal in place with no discharge, nephrostomy tube in place. Extremities: Bilateral lower extremity contractures, able to move all extremities Skin: Clean wound on the left ear as patient mostly on his left side Neuro: Patient is nonverbal, not able to track, unable to follow commands, able to move all extremities. Objective Labs 01/29/25 05:30 01/29/25 05:30 Labs: Laboratory Results - last 24 hr 01/15/25 01/16/25 01/16/25 22:05 05:25 08:54 WBC 33.7 H D RBC 2.84 L Hgb 8.3 L D Hct 27.0 L MCV 95 MCH 29.2 MCHC 30.7 L RDW Std Deviation 49.9 H Plt Count 408 D Neut % (Auto) 88 H Lymph % (Auto) 6 L [place] % (Auto) 3 Eos % (Auto) 2 Baso % (Auto) 1 Neut # (Auto) 29.6 H Lymph # (Auto) 2.2 Den[place] # (Auto) 1.0 H Eos # (Auto) 0.6 H Baso # (Auto) 0.2 Immature Gran # (Auto) 0.32 H Absolute Nucleated RBC 0.00 Immature Gran % 1 H Nucleated RBC % 0 Sodium 143 Potassium 3.5 D Chloride 110 H Carbon Dioxide 22.1 Anion Gap 11 BUN 96 H Creatinine 2.5 H D Estim Creat Clear Calc 35.0 L eGFR 32 L BUN/Creatinine Ratio 38 H Glucose 155 H Calculated Osmolality 317 H Lactic Acid 1.4 2.0 Calcium 8.7 Corrected Calcium 9.2 Phosphorus 2.5 Magnesium 2.6 Total Bilirubin 0.2 L AST 69 H ALT 151 H Alkaline Phosphatase 257 H Total Protein 6.3 Albumin 3.4 L D Globulin 2.9 Albumin/Globulin Ratio 1.2 Random Vancomycin 26.1 ABG Interpretation ABG results: 01/05/25 19:43 ABG pH 7.39 ABG pCO2 40 ABG pO2 93 ABG HCO3 24 ABG O2 Saturation 98 ABG Base Excess -1 Quality Measures Quality Measures VTE prophylaxis Assessment & Plan Assessment Current Active Medications: Generic Name Dose Route Start Last Admin Trade Name Freq PRN Reason Stop Dose Admin Acetaminophen 650 mg 01/15/25 10:32 01/15/25 20:13 Acetaminophen Supp 650 Mg Supp NE 02/14/25 10:31 650 mg Q6HR PRN Administration Fever > 100.4 or pain 1-3 Albuterol 2.5 mg 01/07/25 15:17 Albuterol Rt 2.5 Mg/0.5 Ml Nebu INH 02/06/25 14:58 Q6H PRN shortness of breath or wheezing Baclofen 5 mg 01/07/25 22:00 01/16/25 05:13 Baclofen 10 Mg Tablet PO 02/06/25 21:59 5 mg TID KIT Administration Gabapentin 250 Mg/5 0 ea 01/07/25 18:42 01/16/25 02:29 Ml Solution GT 02/06/25 18:41 2.5 ml Q8HR PRN Administration HICCUPS Dextrose 25 ml 01/05/25 19:11 Dextrose 50%-Water Inj 50 Ml Syringe IV 02/04/25 19:10 Q15MIN PRN BG 50-70 responsive npo pt Dextrose 50 ml 01/05/25 19:11 Dextrose 50%-Water Inj 50 Ml Syringe IV 02/04/25 19:10 Q15MIN PRN BG <50 OR BG <70 & pt unresponsive Enoxaparin Sodium 60 mg 01/07/25 21:00 01/16/25 09:59 Enoxaparin Sod Inj 60 Mg/0.6 Ml Syringe SC 01/21/25 20:59 60 mg BID KIT Administration Fludrocortisone Acetate 0.1 mg 01/07/25 21:00 01/16/25 09:59 Fludrocortisone Acetate 0.1 Mg Tablet GT 02/06/25 20:59 0.1 mg BID KIT Administration Glucagon 1 mg 01/05/25 19:11 Glucagon Inj 1 Mg Vial IM Q15MIN PRN BG <70, and no IV access Norepinephrine Bitartrate 16 mg in 250 mls @ 2.868 mls/hr 01/16/25 00:02 01/16/25 07:15 Levophed In Ns 16mg/250ml IV 02/15/25 00:01 0.17 mcg/kg/min .Q24H PRN 9.752 mls/hr PER PROTOCOL Titration Protocol 0.05 MCG/KG/MIN Vasopressin/Sodium Chloride 20 unit in 100 mls @ 9 mls/hr 01/16/25 06:33 01/16/25 06:38 Vasostrict/Ns Ivpb IV 02/15/25 06:32 0.03 unit/min .Q11H7M PRN 9 mls/hr PER PROTOCOL Administration Protocol 0.03 UNIT/MIN Meropenem 1,000 mg/ Sodium 50 mls @ 100 mls/hr 01/16/25 09:30 01/16/25 10:03 Chloride IV 01/23/25 09:29 100 mls/hr BID KIT Administration Insulin Human Lispro 0 unit 01/06/25 06:00 01/16/25 06:18 Insulin Lispro (Admelog) 1 Unit/0.01 Ml Unit SC 02/05/25 05:59 1 unit Q6HR KIT Administration Protocol Ipratropium [place] 0.5 mg 01/07/25 21:00 01/16/25 06:18 Ipratropium Rt 0.5 Mg/ 2.5 Ml Nebu INH 02/06/25 20:59 0.5 mg QIDRT KIT Administration Lactulose 20 gm 01/14/25 22:00 01/16/25 05:13 Lactulose Syrup 20 Gm/30 Ml Udc GT 02/13/25 21:59 20 gm TID KIT Administration Protocol Lansoprazole 30 mg 01/10/25 09:00 01/16/25 10:03 Lansoprazole 30 Mg Tab. GT 02/07/25 08:59 30 mg QDAY KIT Administration Levalbuterol HCl 1.25 mg 01/07/25 21:00 01/16/25 06:18 Levalbuterol Rt 1.25 Mg/0.5 Ml Nebu INH 02/06/25 20:59 1.25 mg QIDRT KIT Administration Levetiracetam 1,000 mg 01/14/25 13:45 01/16/25 09:59 Levetiracetam Liqd 500 Mg/5 Ml [facility] GT 02/13/25 13:44 1,000 mg BID KIT Administration Midodrine 10 mg 01/06/25 18:38 01/15/25 20:22 Midodrine 5 Mg Tablet PO 02/05/25 08:59 10 mg TID KIT Administration Multivitamins/Minerals 15 ml 01/08/25 09:00 01/16/25 09:59 Multivitamin 15 Ml Udc PO 02/07/25 08:59 15 ml QDAY KIT Administration Ondansetron HCl 4 mg 01/05/25 17:09 Ondansetron Inj 2 Mg/Ml Inj 2 Ml IV 02/04/25 17:08 Q6H PRN NAUSEA OR VOMITING Protocol Pharmacy Consult 1 each 01/16/25 09:00 Vancomycin Pharmacy To Dose 1 Each Each IV 02/15/25 08:59 QDAY PRN consult Phenytoin 600 mg 01/07/25 21:00 01/15/25 22:09 Phenytoin 100 Mg/4 Ml Ud GT 02/06/25 20:59 600 mg BID KIT Administration Sodium Chloride 3 ml 01/07/25 17:55 Sodium Chloride Rt Lala 0.9% 3 Ml Nebu INH 02/06/25 17:54 PRN PRN SOLN Vitamin B Complex/Vit C/Folic Acid 1 tab 01/08/25 09:00 01/16/25 10:03 Vit B12/Vit C/Fa (Nephrovite) Tablet PO 02/07/25 08:59 1 tab QDAY KIT Administration Plan 39-year-old male with past medical history of 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 Patient had rapid response called yesterday for sepsis alert was called Chest x-ray on 01/15/2025 continue to show significant bibasilar pneumonia CT chest/abdomen/pelvis from 01/05/2025 showed osteomyelitis of right ischium and recommend ultrasound soft tissue right lower lateral abdominal wall to assess soft tissue nodules in the subcutaneous tissue, the largest 22 mm Patient was on ertapenem previously, but was switched to cefepime and Zosyn yesterday. Leukocytes continue to uptrend Will take outpatient as right IJ central line and will place left IJ central line Discontinued patient's cefepime and Zosyn and place patient on meropenem today [01/16/2025?] Will continue with vancomycin for now Will continue vasopressors and will continue to wean as blood pressure allows Respiratory #Chronic tracheostomy tube on mechanical ventilation # Bibasilar pneumonia Chest x-ray on 01/15/2025 show bibasilar pneumonia Continue meropenem and vancomycin for now GI #Patient has a PEG tube placed #GERD We will continue with lansoprazole Stop tube feeds for now #Transaminitis, improving Patient came in initially with AST 814, ALT 1105, ALP 413 Could be due to shock liver in the setting of shock Will continue to monitor for now Renal #Obstructive uropathy # ELDON on CKD Patient has a nephrostomy tube as well as suprapubic catheter Will change patient's suprapubic catheter Kidney function continues to worsen with creatinine of 2.5 today from his baseline of around 1.8 to 2 IV fluids Renally dose medications Avoid nephrotoxic agents Endocrine #Diabetes mellitus type 2 Home medications insulin Currently on insulin sliding scale, hypoglycemia protocol in place Hematology #Anemia of chronic disease Patient's hemoglobin was 8.3 today from 10.4 yesterday This most likely hemodilution in the setting of aggressive IV fluids resuscitation ID #septic shock #Pneumonia #Osteomyelitis of right ischium Latest blood cultures drawn on 01/15/2025 but negative for the past 24 hours Will continue with meropenem and vancomycin Sputum and urine cultures also sent which is still pending Infectious disease jury consultant MSk #Right upper extremity DVT Venous Doppler study of right upper extremity showed thrombus involving the right cephalic and right brachial veins We will continue with warm compress and refrain from any IV lines on the right upper extremity Will continue lovenox 60 mg BID Hospital Maintenance: Diet: NPO FEN: PEG tube DVT ppx: lovenox GI ppx: Lansoprazole 40 mg BID IV lines: CIV ([facility]) Lal: suprapubic Code status: Full Dispo: ICU for septic shock Case disclosed with Attending Dr. Amada Etienne PGY1 Attending Provider Attestation/Addendum Patient seen and examined with the above resident, Ted Etienne MD. I agree with the findings, assessment, and plan of care as documented. Remains on levophed at low dose. Potential sources remain long standing RIJ CVC and suprapubic/ nephrostomy drains. With adequate drainage form nephrostomy this is less likely but will ensure with IR. Suprapubic to be changed by RN at bedside. Also we did discontinue RIJ after placement of new left subclavian central line. Will remove this once liberated form pressors in coming days. Though tempting to place on midodrine, would exclude hypotension as sign of hypoperfusion state before initiation of PO pressor equivalent. Antibiotics adjusted to ensure adequate coverage for known ESBL organisms. 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 For now he is on meropenem and improving slowly. Total critical care time: I personally spent 40 minutes for review of physiologic parameters and directing plan of care throughout the day. This is exclusive of time spent teaching housestaff or performing any separate billable procedures. Patient remains at significant risk of further morbidity and mortality warranting close monitoring in the ICU. Critical care services for ventilator associated/ healthcare associate dpneuonia and septic shock.
[2025-01-16] MEDS: RINGERS LACTATED 500 ML 500 ML 999 ML IV (15:50)
[2025-01-16] MEDS: ACETAMINOPHEN SUPP 650 MG SUPP PR (20:18)
[2025-01-16] MEDS: Norepinephrine/NS 16mg/250ml 16 MG/250 ML BAG 12.047 MG IV (23:28)
[2025-01-17] VITALS (114 sets, daily range): BP systolic 73–119; BP diastolic 44–73; PULSE 85–124; RESP 13–30; TEMP 36.6–37.6; O2SAT 91–100; BMI 22.1
[2025-01-17] MEDS: INSULIN LISPRO (AdmeLOG) 1 UNIT/0.01 ML UNIT SC ×2 (00:01→06:25)
[2025-01-17] MEDS: VASOPRESSIN IN NS IVPB 20 UNIT/100 ML BAG 9 UNIT IV (02:19)
[2025-01-17] MEDS: BACLOFEN 10 MG TABLET 5 MG PO ×3 (05:06→21:17)
[2025-01-17] MEDS: LACTULOSE SYRUP 20 GM/30 ML UDC GT ×3 (05:06→21:17)
[2025-01-17 06:12] LABS: Basophils # (Auto) 0.1 Thou/mm3 (0.0-0.2); Basophils % (Auto) 0 % (0-2.5); Eosinophils # (Auto) 0.8 Thou/mm3 (0.0-0.5); Eosinophils % (Auto) 3 % (0-10); Hematocrit 26.4 % (41.0-53.0); Immature Granulocytes % (Auto) 1 % (0-0); Immature Granulocytes Auto 0.25 Thou/mm3 (0.00-0.00); Lymphocytes # (Auto) 1.5 Thou/mm3 (1.0-4.8); Lymphocytes % (Auto) 5 % (10-50); Mean Corpuscular HGB Conc 31.1 g/dl (31.0-37.0); Mean Corpuscular Hemoglobin 29.3 pg (25.0-35.0); Mean Corpuscular Volume 94 fL (80-100); Monocytes # (Auto) 1.2 Thou/mm3 (0.0-0.8); Monocytes % (Auto) 4 % (0-12); Neutrophils # (Auto) 24.5 Thou/mm3 (1.8-7.7); Neutrophils % (Auto) 86 % (37-80); Nucleated Red Blood Cell % 0 /100 WBC (0); Platelet Count 344 Thou/mm3 (140-440); White Blood Count 28.4 Thou/mm3 (3.8-10.6)
[2025-01-17] MEDS: IPRATROPIUM RT 0.5 MG/ 2.5 ML NEBU INH ×4 (06:18→21:10)
[2025-01-17] MEDS: LEVALBUTEROL RT 1.25 MG/0.5 ML NEBU INH ×4 (06:18→21:10)
[2025-01-17 06:28] LABS: Hemoglobin 8.2 g/dL (13.5-16.0)
[2025-01-17 06:36] LABS: Alanine Aminotransferase 112 U/L (10-49); Albumin, Serum 3.6 gm/dL (3.5-5.0); Albumin/Globulin Ratio 1.2 (1.2-2.2); Alkaline Phosphatase 239 U/L (46-116); Anion Gap 14 (7-16); Aspartate Amino Transferase 35 U/L (0-34); BUN/Creatinine Ratio 34 Ratio (12-20); Bilirubin,Total 0.2 mg/dL (0.3-1.2); Blood Urea Nitrogen 75 mg/dL (9-23); Calcium (Corrected) 9.3 mg/dL (8.5-10.1); Carbon Dioxide 21.5 mMol/L (20.0-31.0); Chloride 113 mMol/L (98-107); Creatinine (Component) 2.2 mg/dL (0.6-1.3); Estimated Creatinine Clearance 39.1 mL/min (>60); Globulin 3.1 gm/dL (2.3-3.5); Glucose 146 mg/dL (74-106); Magnesium 2.6 mg/dL (1.6-2.6); Osmolality,Calculated 319 (275-295); Phosphorous 3.5 mg/dL (2.4-5.1); Potassium 3.1 mMol/L (3.4-5.1); Sodium 148 mMol/L (136-145); Total Protein 6.7 gm/dL (5.7-8.2); Vancomycin,Random 14.9 mcg/mL; eGFR 38 See Note
--- NOTE | 2025-01-17 06:45 | XR_ITS ---
Examination: AP chest single view TECHNIQUE: AP portable semiupright chest single view Exam date and time: January 17, 2025 0707 hours Comparison January 16, 2025 INDICATIONS: Difficulty breathing this week, history bibasilar pneumonia FINDINGS: The patient's right internal jugular central line has been removed A left internal jugular central line tip right atrium Normal heart size Significant perihilar bibasilar pneumonia IMPRESSION: Significant perihilar bibasilar pneumonia remains
[2025-01-17] MEDS: POTASSIUM CHLORIDE 10% 20 MEQ/15 ML UDC 40 MEQ GT (08:10)
[2025-01-17] MEDS: ENOXAPARIN SOD INJ 60 MG/0.6 ML SYRINGE SC ×2 (08:10→20:15)
[2025-01-17] MEDS: FLUDROCORTISONE ACETATE 0.1 MG TABLET GT ×2 (08:10→20:16)
[2025-01-17] MEDS: LANSOPRAZOLE 30 MG TAB.RAP.DR GT (08:10)
[2025-01-17] MEDS: RINGERS LACTATED 1000 ML 1,000 ML 999 ML IV (08:10)
[2025-01-17] MEDS: MEROPENEM INJ 1,000 MG in SODIUM CHLORIDE 0.9% (Popper) 50 ML 100 MG IV ×2 (08:11→20:16)
[2025-01-17] MEDS: levETIRAcetam LIQD 500 MG/5 ML UDC 1000 MG GT ×2 (08:11→20:15)
[2025-01-17] MEDS: MULTIVITAMIN 15 ML UDC PO (08:11)
[2025-01-17] MEDS: VIT B12/Vit C/FA (Nephrovite) TABLET 1 TAB PO (08:11)
[2025-01-17] MEDS: Silvasorb Gel 45 ML TUBE TOP (08:12)
[2025-01-17] MEDS: PHENYTOIN 100 MG/4 ML UDC 600 MG GT ×2 (08:25→20:16)
[2025-01-17 08:58] LABS: Lactate (Lactic Acid) 1.2 mMol/L (0.4-2.0)
--- NOTE | 2025-01-17 09:47 | ESPR_ITS ---
Documentation for date of: 01/17/25 Subjective Subjective Interval history: Patient is a 39 years old male with past medical history of anoxic brain injury secondary to cardiac arrest, status post tracheostomy/mechanical ventilation and PEG tube placement, suprapubic catheter, right nephrostomy tube secondary to obstructive uropathy and bilateral upper extremity DVT who was admitted on 01/05/2025 to ICU for management of septic shock secondary to UTI, pneumonia and osteomyelitis of right ischium. Patient received Levophed, IV antibiotics, fluid, next day his blood pressure improved and was able to get off vasopressors and was transferred to telemetry. Patient then started showing improvement, was found to have Pseudomonas, Klebsiella and Proteus on sputum culture. Infectious disease was also following. Patient was initially on vancomycin and Zosyn, was changed to ertapenem and was plan to discharge with 6-week course of antibiotics. Patient continued to be on midodrine 10 mg 3 times daily throughout the course. PICC line was ordered but patient had bilateral upper extremity DVT, the line was unsuccessful, and the plan was to discharge today with a central line and IV antibiotics. But this morning, patient had leukocytosis and tachycardia. Repeat blood cultures were drawn, antibiotics switched to vancomycin and cefepime. Patient also had a rapid response this morning, he was agitated, underwent deep suctioning of tracheostomy tube. He also received 500 cc IV fluid bolus as his blood pressure was becoming soft. Patient again have rapid response this evening due to low blood pressure. Patient had MAP around 58 at bedside. Is also noted to have fever this morning as well as this time of 202.1 ?F. Lactate level was obtained, 1.4. Patient received another 1250 cc of IV normal saline bolus. Despite the boluses, patient continued to have MAP below 60. We will transfer him to ICU for management of septic shock and start him on vasopressors. 01/16/2025: Patient was seen and examined at bedside this morning. Patient nonverbal at baseline. Upon chart review patient has multiple drugs growing up multiple cultures including trachea, sputum, blood, and urine. Patient was receiving cefepime and vancomycin, will continue with the vancomycin, but will switch to meropenem today. Will also change patient's right central line as well as his suprapubic catheter in the setting of possible bacterial seeding. Spoke with patient's son who is medical decision-maker via the phone to which she consented to place patient's left central line. Patient tolerated procedure well. Also gave a 500 mL bolus of LR patient is seizing volume depleted. Patient still on Levophed, but will continue to wean off. 01/17/2025: Patient was seen and examined at bedside this morning. Overnight patient required increased doses of Levophed due to hypotension. Patient's last fever was yesterday evening around 8 PM. Patient was still tachycardic this morning and seemed a little bit diaphoretic therefore send patient is IVC with bedside echo and was collapsible therefore gave patient 1 L bolus of IV fluids and will give patient maintaining fluids at 100 cc/h. Patient also became hypernatremic therefore we will start patient on 75 cc/h. Patient's nephrostomy tube was changed in December or November as per the patient is not. WBCs are downtrending. Blood cultures have been negative in the past 48 hours. Will continue with meropenem and vancomycin for now. Exam Vital Signs Temp Pulse Resp BP Pulse Ox O2 Del Method O2 Flow Rate 99.7 F 105 H 25 H 93/59 L 99 Mechanical Ventilation 50 01/17/25 08:00 01/17/25 08:45 01/17/25 08:45 01/17/25 08:45 01/17/25 08:45 01/17/25 08:00 01/15/25 18:00 FiO2 50 01/17/25 08:00 Narrative Exam General: Nonverbal, but moving all extremities. Diaphoretic, Ill-appearing thin male. Eyes: Pupils sluggish, extraocular muscles appear intact, but patient unable to follow commands therefore cannot trace. Ears: No visible ear discharge Nose: No visible nasal discharge. Mouth/Throat: Moist mucous membranes, no redness, no lesions. Neck: Neck supple, no cervical lymphadenopathy. Right IJ, tracheostomy in place Lungs: Clear breath sounds Upper lobes Nga and coarse in R lower lobe, No accessory muscle use. Cardio: Normal S1/S2, regular rhythm, no murmurs, no JVD or carotid bruits. Abdomen: Soft, non-tender, no palpable masses, peristalsis present, no guarding or rebound. PEG tube in place with no discharge, suprapubic Lal in place with no discharge, nephrostomy tube in place. Extremities: Bilateral lower extremity contractures, able to move all extremities, R UE mildly swollen. Skin: Clean wound on the left ear as patient mostly on his left side, clean dressing over buttock ulcer Neuro: Patient is nonverbal, not able to track, unable to follow commands, able to move all extremities Objective Labs 01/29/25 05:30 01/29/25 05:30 Labs: Laboratory Results - last 24 hr 01/17/25 01/17/25 05:14 08:21 WBC 28.4 H D RBC 2.80 L Hgb 8.2 L Hct 26.4 L MCV 94 MCH 29.3 MCHC 31.1 RDW Std Deviation 49.0 H Plt Count 344 D Neut % (Auto) 86 H Lymph % (Auto) 5 L Saunders % (Auto) 4 Eos % (Auto) 3 Baso % (Auto) 0 Neut # (Auto) 24.5 H Lymph # (Auto) 1.5 Saunders # (Auto) 1.2 H Eos # (Auto) 0.8 H Baso # (Auto) 0.1 Immature Gran # (Auto) 0.25 H Absolute Nucleated RBC 0.00 Immature Gran % 1 H Nucleated RBC % 0 Sodium 148 H Potassium 3.1 L Chloride 113 H Carbon Dioxide 21.5 Anion Gap 14 BUN 75 H Creatinine 2.2 H Estim Creat Clear Calc 39.1 L eGFR 38 L BUN/Creatinine Ratio 34 H Glucose 146 H Calculated Osmolality 319 H Lactic Acid 1.2 Calcium 9.0 Corrected Calcium 9.3 Phosphorus 3.5 Magnesium 2.6 Total Bilirubin 0.2 L AST 35 H ALT 112 H Alkaline Phosphatase 239 H Total Protein 6.7 Albumin 3.6 Globulin 3.1 Albumin/Globulin Ratio 1.2 Random Vancomycin 14.9 ABG Interpretation ABG results: 01/05/25 19:43 ABG pH 7.39 ABG pCO2 40 ABG pO2 93 ABG HCO3 24 ABG O2 Saturation 98 ABG Base Excess -1 Quality Measures Quality Measures VTE prophylaxis Assessment & Plan Assessment Current Active Medications: Generic Name Dose Route Start Last Admin Trade Name Freq PRN Reason Stop Dose Admin Acetaminophen 650 mg 01/15/25 10:32 01/16/25 20:18 Acetaminophen Supp 650 Mg Supp WA 02/14/25 10:31 650 mg Q6HR PRN Administration Fever > 100.4 or pain 1-3 Albuterol 2.5 mg 01/07/25 15:17 Albuterol Rt 2.5 Mg/0.5 Ml Nebu INH 02/06/25 14:58 Q6H PRN shortness of breath or wheezing Baclofen 5 mg 01/07/25 22:00 01/17/25 05:06 Baclofen 10 Mg Tablet PO 02/06/25 21:59 5 mg TID KIT Administration Gabapentin 250 Mg/5 0 ea 01/07/25 18:42 01/16/25 02:29 Ml Solution GT 02/06/25 18:41 2.5 ml Q8HR PRN Administration HICCUPS Dextrose 25 ml 01/05/25 19:11 Dextrose 50%-Water Inj 50 Ml Syringe IV 02/04/25 19:10 Q15MIN PRN BG 50-70 responsive npo pt Dextrose 50 ml 01/05/25 19:11 Dextrose 50%-Water Inj 50 Ml Syringe IV 02/04/25 19:10 Q15MIN PRN BG <50 OR BG <70 & pt unresponsive Enoxaparin Sodium 60 mg 01/07/25 21:00 01/17/25 08:10 Enoxaparin Sod Inj 60 Mg/0.6 Ml Syringe SC 01/21/25 20:59 60 mg BID KIT Administration Fludrocortisone Acetate 0.1 mg 01/07/25 21:00 01/17/25 08:10 Fludrocortisone Acetate 0.1 Mg Tablet GT 02/06/25 20:59 0.1 mg BID KIT Administration Glucagon 1 mg 01/05/25 19:11 Glucagon Inj 1 Mg Vial IM Q15MIN PRN BG <70, and no IV access Norepinephrine Bitartrate 16 mg in 250 mls @ 2.868 mls/hr 01/16/25 00:02 01/17/25 08:46 Levophed In Ns 16mg/250ml IV 02/15/25 00:01 0.13 mcg/kg/min .Q24H PRN 7.458 mls/hr PER PROTOCOL Titration Protocol 0.05 MCG/KG/MIN Vasopressin/Sodium Chloride 20 unit in 100 mls @ 9 mls/hr 01/16/25 06:33 01/17/25 02:19 Vasostrict/Ns Ivpb IV 02/15/25 06:32 0.03 unit/min .Q11H7M PRN 9 mls/hr PER PROTOCOL Administration Protocol 0.03 UNIT/MIN Meropenem 1,000 mg/ Sodium 50 mls @ 100 mls/hr 01/16/25 09:30 01/17/25 08:11 Chloride IV 01/23/25 09:29 100 mls/hr BID KIT Administration Vancomycin/Sodium Chloride 200 mls @ 120 mls/hr 01/17/25 10:00 Vancomycin/Ns 1 Gm Ivpb IV 01/24/25 09:59 QDAY@1000 KIT Insulin Human Lispro 0 unit 01/06/25 06:00 01/17/25 06:25 Insulin Lispro (Admelog) 1 Unit/0.01 Ml Unit SC 02/05/25 05:59 1 unit Q6HR KIT Administration Protocol Ipratropium [place] 0.5 mg 01/07/25 21:00 01/17/25 06:18 Ipratropium Rt 0.5 Mg/ 2.5 Ml Nebu INH 02/06/25 20:59 0.5 mg QIDRT KIT Administration Lactulose 20 gm 01/14/25 22:00 01/17/25 05:06 Lactulose Syrup 20 Gm/30 Ml Udc GT 02/13/25 21:59 20 gm TID KIT Administration Protocol Lansoprazole 30 mg 01/10/25 09:00 01/17/25 08:10 Lansoprazole 30 Mg Tab.Rap. GT 02/07/25 08:59 30 mg QDAY KIT Administration Levalbuterol HCl 1.25 mg 01/07/25 21:00 01/17/25 06:18 Levalbuterol Rt 1.25 Mg/0.5 Ml Nebu INH 02/06/25 20:59 1.25 mg QIDRT KIT Administration Levetiracetam 1,000 mg 01/14/25 13:45 01/17/25 08:11 Levetiracetam Liqd 500 Mg/5 Ml Udc GT 02/13/25 13:44 1,000 mg BID KIT Administration Midodrine 10 mg 01/06/25 18:38 01/15/25 20:22 Midodrine 5 Mg Tablet PO 02/05/25 08:59 10 mg TID KIT Administration Multivitamins/Minerals 15 ml 01/08/25 09:00 01/17/25 08:11 Multivitamin 15 Ml Udc PO 02/07/25 08:59 15 ml QDAY KIT Administration Ondansetron HCl 4 mg 01/05/25 17:09 Ondansetron Inj 2 Mg/Ml Inj 2 Ml IV 02/04/25 17:08 Q6H PRN NAUSEA OR VOMITING Protocol Pharmacy Consult 1 each 01/16/25 09:00 Vancomycin Pharmacy To Dose 1 Each Each IV 02/15/25 08:59 QDAY PRN consult Phenytoin 600 mg 01/07/25 21:00 01/17/25 08:25 Phenytoin 100 Mg/4 Ml Udc GT 02/06/25 20:59 600 mg BID KIT Administration Sodium Chloride 3 ml 01/07/25 17:55 Sodium Chloride Rt Lala 0.9% 3 Ml Nebu INH 02/06/25 17:54 PRN PRN SOLN Vitamin B Complex/Vit C/Folic Acid 1 tab 01/08/25 09:00 01/17/25 08:11 Vit B12/Vit C/Fa (Nephrovite) Tablet PO 02/07/25 08:59 1 tab QDAY KIT Administration Plan 39-year-old male with past medical history of 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 Patient had rapid response called yesterday for sepsis alert was called Chest x-ray on 01/15/2025 continue to show significant bibasilar pneumonia CT chest/abdomen/pelvis from 01/05/2025 showed osteomyelitis of right ischium and recommend ultrasound soft tissue right lower lateral abdominal wall to assess soft tissue nodules in the subcutaneous tissue, the largest 22 mm Leukocytes downtrending Central line on left IJ placed on 01/16/2025 meropenem today [01/16/2025?] Will continue with vancomycin and meropenem for now Will continue vasopressors and will continue to wean as blood pressure allows Respiratory #Chronic tracheostomy tube on mechanical ventilation # Bibasilar pneumonia Chest x-ray on 01/15/2025 show bibasilar pneumonia Continue meropenem and vancomycin for now GI #Patient has a PEG tube placed #GERD We will continue with lansoprazole Will resume tube feeds #Transaminitis, improving Patient came in initially with AST 814, ALT 1105, ALP 413 Could be due to shock liver in the setting of shock Will continue to monitor for now Renal #Obstructive uropathy # ELDON on CKD, improving Patient has a nephrostomy tube (placed at [facility]) as well as suprapubic catheter Will change patient's suprapubic catheter Kidney function continues to worsen with creatinine of 2.2 today from his baseline of around 1.8 to 2 IV fluids Renally dose medications Avoid nephrotoxic agents #Hypernatremia Patient sodium went up to 148 today Most likely hemoconcentration Started free water flushes 75 cc/h IV fluids Endocrine #Diabetes mellitus type 2 Currently on insulin sliding scale, hypoglycemia protocol in place Hematology #Anemia of chronic disease Patient's hemoglobin was 8.2 today This most likely hemodilution in the setting of aggressive IV fluids resuscitation ID #septic shock #Pneumonia #Osteomyelitis of right ischium Latest blood cultures drawn on 01/15/2025 but negative for the past 48 hours Will continue with meropenem and vancomycin Sputum and urine cultures also sent which is still pending Infectious disease banking consultant MSK #Right upper extremity DVT Venous Doppler study of right upper extremity showed thrombus involving the right cephalic and right brachial veins We will continue with warm compress and refrain from any IV lines on the right upper extremity Will continue lovenox 60 mg BID Hospital Maintenance: Diet: Tube feeds FEN: PEG tube DVT ppx: lovenox GI ppx: Lansoprazole 40 mg BID IV lines: CIV ([facility]) Lal: suprapubic Code status: Full Dispo: ICU for septic shock Case disclosed with Attending Dr. Amada Etienne PGY1 Attending Provider Attestation/Addendum Patient seen and examined with the above resident, Ted Etienne MD. I agree with the findings, assessment, and plan of care as documented. Additional fluids to help wean off of vasopressors. Patient on appropriate antibiotic regimen. Stable on current vent settings. Family aware of likelihood of drug resistance at some point, one of the reasons family brought him close to home given recurrent admission. Follow lactic acid levels, thus far reassuring along with good UOP. Start on TF via PEG tube given low pressor requirements now. Total critical care time: I personally spent 35 minutes for review of physiologic parameters, directing plan of care, and counseling patent at bedside. This is exclusive of time spent teaching housestaff or performing any separate billable procedures. Patient remains at significant risk of further morbidity and mortality warranting close monitoring and care in the ICU. Critical care sevirces for VAP and septic shock.
[2025-01-17] MEDS: VANCOMYCIN/NS 1 GM IVPB 200 ML IV (10:05)
[2025-01-17 11:02] LABS: Sed Rate (ESR) 57 mm/hr (0-15)
[2025-01-17 11:28] LABS: C-Reactive Protein 32.5 mg/dL (0.0-0.9)
--- NOTE | 2025-01-17 11:48 | CHAP ---
Patient was visited by the Spiritual Care Volunteer who prayed for them. (Volunteer was in the hospital from 11:05-11:48).
[2025-01-17] MEDS: RINGERS LACTATED 1000 ML 1,000 ML 100 ML IV ×2 (11:53→19:17)
[2025-01-17] MEDS: ACETAMINOPHEN 325 MG TABLET 650 MG PO (17:12)
[2025-01-17] MEDS: CHLORPROMAZINE IV (17:32)
[2025-01-17] MEDS: SODIUM CHLORIDE 0.9% IV (17:32)
[2025-01-17] MEDS: MICAFUNGIN SODIUM INJ 100 MG in SODIUM CHLORIDE 0.9% 100 ML IV (19:15)
[2025-01-17] MEDS: GABAPENTIN 250 MG/5 ML GT (19:16)
[2025-01-18] VITALS (111 sets, daily range): BP systolic 82–119; BP diastolic 52–71; PULSE 82–111; RESP 14–53; TEMP 36.6–37.2; O2SAT 86–100; BMI 22.1
[2025-01-18] MEDS: RINGERS LACTATED 1000 ML 1,000 ML 100 ML IV ×2 (04:43→17:27)
--- NOTE | 2025-01-18 04:45 | PD.EVENT ---
Documentation for date of: 01/18/25 Event Note Event Note: CT imaging ordered to establish placement of right nephrostomy tube, RN reported tube is not anchored properly. No bleeding, clear output draining from right nephrostomy tube.
[2025-01-18] MEDS: BACLOFEN 10 MG TABLET 5 MG PO ×2 (05:39→21:18)
[2025-01-18] MEDS: INSULIN LISPRO (AdmeLOG) 1 UNIT/0.01 ML UNIT SC ×2 (05:45→13:44)
[2025-01-18 06:13] LABS: Basophils # (Auto) 0.1 Thou/mm3 (0.0-0.2); Basophils % (Auto) 0 % (0-2.5); Eosinophils # (Auto) 1.6 Thou/mm3 (0.0-0.5); Eosinophils % (Auto) 11 % (0-10); Hematocrit 22.9 % (41.0-53.0); Immature Granulocytes % (Auto) 1 % (0-0); Immature Granulocytes Auto 0.08 Thou/mm3 (0.00-0.00); Lymphocytes # (Auto) 1.2 Thou/mm3 (1.0-4.8); Lymphocytes % (Auto) 8 % (10-50); Mean Corpuscular Hemoglobin 29.3 pg (25.0-35.0); Mean Corpuscular Volume 95 fL (80-100); Monocytes # (Auto) 0.8 Thou/mm3 (0.0-0.8); Monocytes % (Auto) 5 % (0-12); Neutrophils # (Auto) 11.1 Thou/mm3 (1.8-7.7); Neutrophils % (Auto) 76 % (37-80); Nucleated Red Blood Cell % 0 /100 WBC (0); Platelet Count 273 Thou/mm3 (140-440); RDW Standard Deviation 49.2 fL (35.1-43.9); Red Blood Count 2.42 Miln/mm3 (4.50-5.90); White Blood Count 14.7 Thou/mm3 (3.8-10.6)
[2025-01-18] MEDS: LEVALBUTEROL RT 1.25 MG/0.5 ML NEBU INH ×4 (06:18→21:47)
[2025-01-18] MEDS: IPRATROPIUM RT 0.5 MG/ 2.5 ML NEBU INH ×3 (06:18→16:32)
[2025-01-18 06:23] LABS: Hemoglobin 7.1 g/dL (13.5-16.0)
[2025-01-18 06:27] LABS: Alanine Aminotransferase 86 U/L (10-49); Albumin/Globulin Ratio 1.1 (1.2-2.2); Alkaline Phosphatase 200 U/L (46-116); Anion Gap 11 (7-16); Aspartate Amino Transferase 38 U/L (0-34); BUN/Creatinine Ratio 30 Ratio (12-20); Bilirubin,Total < 0.2 mg/dL (0.3-1.2); Blood Urea Nitrogen 54 mg/dL (9-23); Calcium 8.3 mg/dL (8.3-10.6); Calcium (Corrected) 9.1 mg/dL (8.5-10.1); Carbon Dioxide 21.2 mMol/L (20.0-31.0); Chloride 115 mMol/L (98-107); Creatinine (Component) 1.8 mg/dL (0.6-1.3); Estimated Creatinine Clearance 47.8 mL/min (>60); Globulin 2.8 gm/dL (2.3-3.5); Glucose 163 mg/dL (74-106); Osmolality,Calculated 311 (275-295); Potassium 3.3 mMol/L (3.4-5.1); Sodium 147 mMol/L (136-145); Total Protein 5.8 gm/dL (5.7-8.2); Vancomycin,Random 21.4 mcg/mL; eGFR 48 See Note
--- NOTE | 2025-01-18 06:43 | XR_ITS ---
Examination: AP chest single view Technique one AP portable semiupright chest single view Exam date and time: January 18, 2025 0716 hours Comparison January 17, 2025 INDICATIONS: Respiratory distress, difficulty breathing this week, significant bilateral pneumonia on earlier chest imaging FINDINGS: Diffuse left lung and significant right base pneumonia Left internal jugular central line tip right atrium Tracheostomy tube tip 6.9 cm above [place] Moderate osteopenia IMPRESSION: Diffuse left lung pneumonia, significant right base pneumonia
--- NOTE | 2025-01-18 08:12 | XR_ITS ---
Examination: Abdomen AP single view Technique: AP portable supine abdomen, single view Exam date and time: January 18, 2025 0835 hours INDICATIONS: History nephrostomy tube placement FINDINGS: Right nephrostomy tube noted Surgical clips upper right abdomen. Moderate air stool throughout the colon No obstruction Bibasilar pneumonia IMPRESSION: Nephrostomy tube overlies the right abdomen
[2025-01-18] MEDS: MEROPENEM INJ 1,000 MG in SODIUM CHLORIDE 0.9% (Popper) 50 ML 100 MG IV ×2 (08:27→21:19)
[2025-01-18] MEDS: ENOXAPARIN SOD INJ 60 MG/0.6 ML SYRINGE SC ×2 (08:27→21:19)
[2025-01-18] MEDS: levETIRAcetam LIQD 500 MG/5 ML UDC 1000 MG GT ×2 (08:28→21:20)
[2025-01-18] MEDS: FLUDROCORTISONE ACETATE 0.1 MG TABLET GT ×2 (08:29→21:18)
[2025-01-18] MEDS: LANSOPRAZOLE 30 MG TAB.RAP.DR GT (08:29)
[2025-01-18] MEDS: SODIUM CHLORIDE 0.9% IV (08:29)
[2025-01-18] MEDS: VIT B12/Vit C/FA (Nephrovite) TABLET 1 TAB PO (08:29)
[2025-01-18] MEDS: CHLORPROMAZINE IV (08:29)
[2025-01-18] MEDS: POTASSIUM CHLORIDE 20 mEq TABCR 40 MEQ PO (08:29)
[2025-01-18] MEDS: MULTIVITAMIN 15 ML UDC PO (08:29)
[2025-01-18] MEDS: GABAPENTIN 250 MG/5 ML GT (08:30)
[2025-01-18] MEDS: Silvasorb Gel 45 ML TUBE TOP (08:31)
[2025-01-18] MEDS: MICAFUNGIN SODIUM INJ 100 MG in SODIUM CHLORIDE 0.9% 100 ML IV (08:31)
[2025-01-18] MEDS: PHENYTOIN 100 MG/4 ML UDC 600 MG GT ×2 (09:07→21:20)
--- NOTE | 2025-01-18 10:42 | PC.SS ---
Rounding note: Patient was transferred to ICU from med/surg over weekend. Patient had a rapid for sepsis over weekend. Patient is a resident of [facility]. GI consult placed for patient peg tube. Patient on levophed. Patient was not able to get the picc line. Patient on i.v. meropenem.
--- NOTE | 2025-01-18 10:52 | ESPR_ITS ---
Documentation for date of: 01/18/25 Subjective Subjective Interval history: Patient is a 39 years old male with past medical history of anoxic brain injury secondary to cardiac arrest, status post tracheostomy/mechanical ventilation and PEG tube placement, suprapubic catheter, right nephrostomy tube secondary to obstructive uropathy and bilateral upper extremity DVT who was admitted on 01/05/2025 to ICU for management of septic shock secondary to UTI, pneumonia and osteomyelitis of right ischium. Patient received Levophed, IV antibiotics, fluid, next day his blood pressure improved and was able to get off vasopressors and was transferred to telemetry. Patient then started showing improvement, was found to have Pseudomonas, Klebsiella and Proteus on sputum culture. Infectious disease was also following. Patient was initially on vancomycin and Zosyn, was changed to ertapenem and was plan to discharge with 6-week course of antibiotics. Patient continued to be on midodrine 10 mg 3 times daily throughout the course. PICC line was ordered but patient had bilateral upper extremity DVT, the line was unsuccessful, and the plan was to discharge today with a central line and IV antibiotics. But this morning, patient had leukocytosis and tachycardia. Repeat blood cultures were drawn, antibiotics switched to vancomycin and cefepime. Patient also had a rapid response this morning, he was agitated, underwent deep suctioning of tracheostomy tube. He also received 500 cc IV fluid bolus as his blood pressure was becoming soft. Patient again have rapid response this evening due to low blood pressure. Patient had MAP around 58 at bedside. Is also noted to have fever this morning as well as this time of 202.1 ?F. Lactate level was obtained, 1.4. Patient received another 1250 cc of IV normal saline bolus. Despite the boluses, patient continued to have MAP below 60. We will transfer him to ICU for management of septic shock and start him on vasopressors. 01/16/2025: Patient was seen and examined at bedside this morning. Patient nonverbal at baseline. Upon chart review patient has multiple drugs growing up multiple cultures including trachea, sputum, blood, and urine. Patient was receiving cefepime and vancomycin, will continue with the vancomycin, but will switch to meropenem today. Will also change patient's right central line as well as his suprapubic catheter in the setting of possible bacterial seeding. Spoke with patient's son who is medical decision-maker via the phone to which she consented to place patient's left central line. Patient tolerated procedure well. Also gave a 500 mL bolus of LR patient is seizing volume depleted. Patient still on Levophed, but will continue to wean off. 01/17/2025: Patient was seen and examined at bedside this morning. Overnight patient required increased doses of Levophed due to hypotension. Patient's last fever was yesterday evening around 8 PM. Patient was still tachycardic this morning and seemed a little bit diaphoretic therefore send patient is IVC with bedside echo and was collapsible therefore gave patient 1 L bolus of IV fluids and will give patient maintaining fluids at 100 cc/h. Patient also became hypernatremic therefore we will start patient on 75 cc/h. Patient's nephrostomy tube was changed in December or November as per the patient is not. WBCs are downtrending. Blood cultures have been negative in the past 48 hours. Will continue with meropenem and vancomycin for now. 01/18/2025: Patient was seen examined at bedside this morning. No acute overnight events. Patient yesterday evening did spike a fever and his urine culture did come back with cheese therefore started patient on micafungin. He received 2 days of micafungin, but will discontinue today given that blood cultures are negative. Patient's tachycardia has resolved this morning he looks a little less diaphoretic. Patient yesterday was placed back on Levophed and is currently on Levophed 0.09. There was some question about his nephrostomy tube which could have been out of place as it was not suture, but patient's nephrostomy tube is still draining well and on abdominal x-ray at this appeared to be on the same location as previously. Today while turning the patient to clean his PEG tube dislodged therefore we will have GI place PEG tube back in place. Placed Lal catheter with a technique sterile into the PEG tube orifice to keep it patent. Consulted surgery for possible debridement of patient's sacral ulcer to see if this could be a source of infection. Will continue with meropenem for now and vancomycin. If debridement is not an option at this time patient will most likely need a bronchoscopy. Exam Vital Signs Temp Pulse Resp BP Pulse Ox O2 Del Method O2 Flow Rate 97.9 F 85 22 H 100/57 L 98 Mechanical Ventilation 50 01/18/25 00:00 01/18/25 06:16 01/18/25 06:16 01/18/25 06:00 01/18/25 06:16 01/18/25 00:00 01/15/25 18:00 FiO2 45 01/18/25 06:16 Narrative Exam General: Nonverbal, but moving all extremities. Ill-appearing thin male. Eyes: Pupils sluggish, extraocular muscles appear intact, but patient unable to follow commands therefore cannot trace. Ears: No visible ear discharge Nose: No visible nasal discharge. Mouth/Throat: Moist mucous membranes, no redness, no lesions. Neck: Neck supple, no cervical lymphadenopathy. Right IJ, tracheostomy in place Lungs: Clear breath sounds Upper lobes Nga and coarse in R lower lobe, No accessory muscle use. Cardio: Normal S1/S2, regular rhythm, no murmurs, no JVD or carotid bruits. Abdomen: Soft, non-tender, no palpable masses, peristalsis present, no guarding or rebound. PEG tube in place with no discharge, suprapubic Lal in place with no discharge, nephrostomy tube in place. Extremities: Bilateral lower extremity contractures, able to move all extremities, R UE mildly swollen improving. Skin: Clean wound on the left ear as patient mostly on his left side, Sacral an buttock ulcer with good granulation. Neuro: Patient is nonverbal, not able to track, unable to follow commands, able to move all extremities Objective Labs 01/21/25 04:25 01/21/25 04:25 Labs: Laboratory Results - last 24 hr 01/17/25 01/18/25 05:14 05:21 WBC 14.7 H D RBC 2.42 L Hgb 7.1 L Hct 22.9 L MCV 95 MCH 29.3 MCHC 31.0 RDW Std Deviation 49.2 H Plt Count 273 D Neut % (Auto) 76 Lymph % (Auto) [address] [place] % (Auto) 5 Eos % (Auto) 11 H Baso % (Auto) 0 Neut # (Auto) 11.1 H Lymph # (Auto) 1.2 [place] # (Auto) 0.8 Eos # (Auto) 1.6 H Baso # (Auto) 0.1 Immature Gran # (Auto) 0.08 H Absolute Nucleated RBC 0.00 Immature Gran % 1 H Nucleated RBC % 0 ESR 57 H Sodium 147 H Potassium 3.3 L Chloride 115 H Carbon Dioxide 21.2 Anion Gap 11 BUN 54 H Creatinine 1.8 H Estim Creat Clear Calc 47.8 L eGFR 48 L BUN/Creatinine Ratio 30 H Glucose 163 H Calculated Osmolality 311 H Calcium 8.3 Corrected Calcium 9.1 Total Bilirubin < 0.2 L AST 38 H ALT 86 H Alkaline Phosphatase 200 H D C-Reactive Prot, Quant 32.5 H Total Protein 5.8 Albumin 3.0 L D Globulin 2.8 Albumin/Globulin Ratio 1.1 L Random Vancomycin 21.4 ABG Interpretation ABG results: 01/05/25 19:43 ABG pH 7.39 ABG pCO2 40 ABG pO2 93 ABG HCO3 24 ABG O2 Saturation 98 ABG Base Excess -1 Quality Measures Quality Measures VTE prophylaxis Assessment & Plan Assessment Current Active Medications: Generic Name Dose Route Start Last Admin Trade Name Freq PRN Reason Stop Dose Admin Acetaminophen 650 mg 01/17/25 16:26 01/17/25 17:12 Acetaminophen 325 Mg Tablet PO 02/16/25 16:25 650 mg Q6HR PRN Administration pain and Fever >100.4 Albuterol 2.5 mg 01/07/25 15:17 Albuterol Rt 2.5 Mg/0.5 Ml Nebu INH 02/06/25 14:58 Q6H PRN shortness of breath or wheezing Baclofen 5 mg 01/07/25 22:00 01/18/25 05:39 Baclofen 10 Mg Tablet PO 02/06/25 21:59 5 mg TID KIT Administration Gabapentin 250 Mg/5 0 ea 01/07/25 18:42 01/18/25 08:30 Ml Solution GT 02/06/25 18:41 5 ml Q8HR PRN Administration HICCUPS Dextrose 25 ml 01/05/25 19:11 Dextrose 50%-Water Inj 50 Ml Syringe IV 02/04/25 19:10 Q15MIN PRN BG 50-70 responsive npo pt Dextrose 50 ml 01/05/25 19:11 Dextrose 50%-Water Inj 50 Ml Syringe IV 02/04/25 19:10 Q15MIN PRN BG <50 OR BG <70 & pt unresponsive Enoxaparin Sodium 60 mg 01/07/25 21:00 01/18/25 08:27 Enoxaparin Sod Inj 60 Mg/0.6 Ml Syringe SC 01/21/25 20:59 60 mg BID KIT Administration Fludrocortisone Acetate 0.1 mg 01/07/25 21:00 01/18/25 08:29 Fludrocortisone Acetate 0.1 Mg Tablet GT 02/06/25 20:59 0.1 mg BID KIT Administration Glucagon 1 mg 01/05/25 19:11 Glucagon Inj 1 Mg Vial IM Q15MIN PRN BG <70, and no IV access Norepinephrine Bitartrate 16 mg in 250 mls @ 2.868 mls/hr 01/16/25 00:02 01/18/25 06:00 Levophed In Ns 16mg/250ml IV 02/15/25 00:01 0.09 mcg/kg/min .Q24H PRN 5.163 mls/hr PER PROTOCOL Titration Protocol 0.05 MCG/KG/MIN Vasopressin/Sodium Chloride 20 unit in 100 mls @ 9 mls/hr 01/16/25 06:33 01/17/25 15:00 Vasostrict/Ns Ivpb IV 02/15/25 06:32 0 unit/min .Q11H7M PRN 0 mls/hr PER PROTOCOL Titration Protocol 0.03 UNIT/MIN Meropenem 1,000 mg/ Sodium 50 mls @ 100 mls/hr 01/16/25 09:30 01/18/25 08:27 Chloride IV 01/23/25 09:29 100 mls/hr BID KIT Administration Lactated Ringer's 1,000 mls @ 100 mls/hr 01/17/25 10:11 01/18/25 06:00 Lactated Ringers IV 02/16/25 10:10 100 mls/hr .Q10H KIT Infusion Chlorpromazine HCl 25 mg/ 51 mls @ 102 mls/hr 01/17/25 16:13 01/18/25 08:29 Sodium Chloride IV 02/16/25 16:12 102 mls/hr Q6HR PRN Administration HICCUPS Insulin Human Lispro 0 unit 01/06/25 06:00 01/18/25 05:45 Insulin Lispro (Admelog) 1 Unit/0.01 Ml Unit SC 02/05/25 05:59 1 unit Q6HR KIT Administration Protocol Ipratropium [place] 0.5 mg 01/07/25 21:00 01/18/25 06:18 Ipratropium Rt 0.5 Mg/ 2.5 Ml Nebu INH 02/06/25 20:59 0.5 mg QIDRT KIT Administration Lactulose 20 gm 01/14/25 22:00 01/18/25 05:14 Lactulose Syrup 20 Gm/30 Ml [facility] GT 02/13/25 21:59 Not Given TID KIT Protocol Lansoprazole 30 mg 01/10/25 09:00 01/18/25 08:29 Lansoprazole 30 Mg Tab. GT 02/07/25 08:59 30 mg QDAY KIT Administration Levalbuterol HCl 1.25 mg 01/07/25 21:00 01/18/25 06:18 Levalbuterol Rt 1.25 Mg/0.5 Ml Nebu INH 02/06/25 20:59 1.25 mg QIDRT KIT Administration Levetiracetam 1,000 mg 01/14/25 13:45 01/18/25 08:28 Levetiracetam Liqd 500 Mg/5 Ml [facility] GT 02/13/25 13:44 1,000 mg BID KIT Administration Midodrine 10 mg 01/06/25 18:38 01/15/25 20:22 Midodrine 5 Mg Tablet PO 02/05/25 08:59 10 mg TID KIT Administration Multivitamins/Minerals 15 ml 01/08/25 09:00 01/18/25 08:29 Multivitamin 15 Ml Udc PO 02/07/25 08:59 15 ml QDAY KIT Administration Ondansetron HCl 4 mg 01/05/25 17:09 Ondansetron Inj 2 Mg/Ml Inj 2 Ml IV 02/04/25 17:08 Q6H PRN NAUSEA OR VOMITING Protocol Pharmacy Consult 1 each 01/16/25 09:00 Vancomycin Pharmacy To Dose 1 Each Each IV 02/15/25 08:59 QDAY PRN consult Phenytoin 600 mg 01/07/25 21:00 01/18/25 09:07 Phenytoin 100 Mg/4 Ml [facility] GT 02/06/25 20:59 600 mg BID KIT Administration Sodium Chloride 3 ml 01/07/25 17:55 Sodium Chloride Rt Lala 0.9% 3 Ml Nebu INH 02/06/25 17:54 PRN PRN SOLN Vitamin B Complex/Vit C/Folic Acid 1 tab 01/08/25 09:00 01/18/25 08:29 Vit B12/Vit C/Fa (Nephrovite) Tablet PO 02/07/25 08:59 1 tab QDAY KIT Administration Plan 39-year-old male with past medical history of 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 Patient had rapid response called yesterday for sepsis alert was called Chest x-ray on 01/15/2025 continue to show significant bibasilar pneumonia CT chest/abdomen/pelvis from 01/05/2025 showed osteomyelitis of right ischium and recommend ultrasound soft tissue right lower lateral abdominal wall to assess soft tissue nodules in the subcutaneous tissue, the largest 22 mm Leukocytes downtrending Central line on left IJ placed on 01/16/2025 meropenem today [01/16/2025?] Will continue with vancomycin and meropenem for now Will continue vasopressors and will continue to wean as blood pressure allows Respiratory #Chronic tracheostomy tube on mechanical ventilation # Bibasilar pneumonia Chest x-ray on 01/15/2025 show bibasilar pneumonia Continue meropenem and vancomycin for now GI #Patient has a PEG tube placed #GERD PEG tube dislodged today GI consulted for PEG tube placement again We will continue with lansoprazole Will resume tube feeds #Transaminitis, improving Patient came in initially with AST 814, ALT 1105, ALP 413 Could be due to shock liver in the setting of shock Will continue to monitor for now Renal #Obstructive uropathy # ELDON on CKD, improving Patient has a nephrostomy tube (placed at [facility]) as well as suprapubic catheter Will change patient's suprapubic catheter Kidney function continues to worsen with creatinine of 1.8 today from his baseline of around 1.8 to 2 IV fluids Renally dose medications Avoid nephrotoxic agents #Hypernatremia Patient sodium went up to 148 today Most likely hemoconcentration Increase free water flushes 200 cc/h Endocrine #Diabetes mellitus type 2 Currently on insulin sliding scale, hypoglycemia protocol in place Hematology #Anemia of chronic disease Patient's hemoglobin was 7.1 This most likely hemodilution in the setting of aggressive IV fluids resuscitation yesterday No signs of active bleeding ID #septic shock #Pneumonia #Osteomyelitis of right ischium #Pressure ulcer Latest blood cultures drawn on 01/15/2025 but negative Urine culture from 01/15/2025 Received 2 days of micafungin Will continue with meropenem and vancomycin Consulted general surgery for possible debridement MSK #Right upper extremity DVT Venous Doppler study of right upper extremity showed thrombus involving the right cephalic and right brachial veins We will continue with warm compress and refrain from any IV lines on the right upper extremity Will continue lovenox 60 mg BID Hospital Maintenance: Diet: NPO DVT ppx: lovenox GI ppx: Lansoprazole 40 mg BID IV lines: CIV ([facility]) Lal: suprapubic Code status: Full Dispo: ICU for septic shock Case disclosed with Attending Dr. Amada Etienne PGY1 Attending Provider Attestation/Addendum Patient seen and examined with above resident, Ted Etienne MD. I agree with the findings, assessment, and plan of care as document except for any differences below. Patient with continued slow improvement. Will continue on empiric antibiotics with appropriate coverage for healthcare associated infection. I do not suspect a superimposed fungal infection discontinue micafungin. We did also discuss with general surgery and wound nurse possibility of pressure ulcer that is now infected the seems to be unlikely. Known history of osteomyelitis. However complete course appropriately for 7 to 10 days. Nephrostomy drain continues to be appropriately draining without evidence of pyuria grossly. Urine output remains stable. However, he continues to have labile blood pressure and heart rate. Intermittent fevers and appropriately dressed with antibiotic regimen difficult to discern if he does have septic shock or autonomic dysfunction complicating ability to wean from vasopressor support. Patient remains on appropriate DVT treatment for upper extremity venous Doppler being positive, treatment mixed PE less likely as an etiology for her constellation of symptoms no fever can be associated with clot burden. Total critical care time: I personally spent 35 minutes for review of physiologic parameters, directing plan of care throughout the day, coordination of care with other specialists, and counseling patient's family. This is exclusive of time spent teaching housestaff or performing any separate billable procedures. Patient remains at high risk for further morbidity and mortality warranting close monitoring and care only available in the intensive care unit. Critical care services required for septic shock and chronic hypoxic respiratory failure secondary to healthcare associated pneumonia.
[2025-01-18] MEDS: ACETAMINOPHEN 325 MG TABLET 650 MG PO (18:24)
--- NOTE | 2025-01-18 18:40 | PD.IMCONS ---
HPI Data of Consult Requesting Physician: Joshua Ybarra MD Primary Care Provider: Gerri Bentley MD Consult Narrative Reason for consult: PEG tube evaluation History of present illness: 39 years old male evaluated at the request of the internal medicine team as the PEG tube had fallen out I requested Lal catheter be placed in quickly to preserve the stoma which was done And have been consulted for placement of a new gastrostomy tube Patient does have a history of 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 tracheostomy mechanically ventilated PEG tube placement suprapubic catheter right nephrostomy and bilateral upper extremity DVT Patient was admitted on 01/05/2025 with hypotension tachycardia and fever cc:: cc: Joshua Ybarra MD Review of Systems Review of Systems ROS Unobtainable: unobtainable due to medical condition Past Medical History Surgical History OTHER SURGICAL HX: As in the history of present illness Meds Home Medications and Allergies Home Medications ?Medication ?Instructions ?Recorded ?Confirmed ?Type Multivitamin And Mineral oral 15 ml G-tube QDAY dietary 01/06/25 01/06/25 History liquid supplement acetaminophen 500 mg/15 mL oral 1,000 mg feeding tube Q8H PRN 01/06/25 01/06/25 History liquid fever or pain acetylcysteine 200 mg/mL (20 %) 2 ml inhalation Q8H PRN COUGH 01/06/25 01/06/25 History solution albuterol sulfate 2.5 mg/3 mL 2.5 mg inhalation Q6H PRN 01/06/25 01/06/25 History (0.083 %) solution for nebulization shortness of breath or wheezing amino acids-protein hydrolysate 15 1 ea PO BID For pressure ulcer of 01/06/25 01/06/25 History gram-100 kcal/30 mL oral liquid sacral region, stage 4 (Pro-Stat Sugar Free) baclofen 5 mg tablet 5 mg feeding tube TID 01/06/25 01/06/25 History bisacodyl 10 mg rectal suppository 10 mg AK QDAY PRN for no BM 01/06/25 01/06/25 History (Dulcolax (bisacodyl)) carboxymethylcellulose sodium 0.5 1 drp Both eyes QDAY lubricant for 01/06/25 01/06/25 History % eye drops in a dropperette eyes chlorhexidine gluconate 0.12 % 15 ml PO BID 01/06/25 01/06/25 History mouthwash diazepam 10 mg/spray (0.1 mL) 10 mg intranasal PRN 01/06/25 01/06/25 History nasal spray (Valtoco) enoxaparin 60 mg/0.6 mL 60 mg subcut BID 01/06/25 01/06/25 History subcutaneous syringe fludrocortisone 0.1 mg tablet 0.1 mg feeding tube BID adrenal 01/06/25 01/06/25 History insufficiency fluocinonide 0.05 % topical 1 applic topical .qshift flaky/dry 01/06/25 01/06/25 History solution skin gabapentin 250 mg/5 mL oral 250 mg feeding tube Q8H hiccups 01/06/25 01/06/25 History solution guaifenesin 100 mg/5 mL oral liquid 100 mg PO Q6H PRN cough 01/06/25 01/06/25 History ipratropium 0.5 mg-albuterol 3 mg 3 ml inhalation QID wheezing 01/06/25 01/06/25 History (2.5 mg base)/3 mL nebulization soln levetiracetam 100 mg/mL oral 1,000 mg feeding tube BID 01/06/25 01/14/25 History solution lorazepam 0.5 mg tablet 0.5 mg feeding tube Q6H agitation 01/06/25 01/06/25 History magnesium hydroxide 400 mg/5 mL 400 mg PO QDAY PRN NO BM 01/06/25 01/06/25 History oral suspension (Milk of Magnesia) metoclopramide HCl 5 mg tablet 5 mg feeding tube TID 01/06/25 01/06/25 History midodrine 10 mg tablet 10 mg feeding tube TID hypotension 01/06/25 01/06/25 History pantoprazole 40 mg granules 40 mg PO QDAY 01/06/25 01/06/25 History delayed-release for susp in packet (Protonix) phenytoin 125 mg/5 mL oral 600 mg G-tube BID seizures 01/06/25 01/06/25 History suspension sennosides 8.8 mg/5 mL oral syrup 10 ml PO BID 01/06/25 01/06/25 History (senna) sodium phosphates 19 gram-7 118 ml [place] QDAY PRN NO BM 01/06/25 01/06/25 History gram/118 mL enema (Fleet Enema) vitamin B complex-vitamin C-folic 1 tab PO QDAY 01/06/25 01/06/25 History acid 0.8 mg tablet (Nephro-Autumn) Allergies Allergy/AdvReac Type Severity Reaction Status Date / Time No Known Allergies Allergy Verified 01/11/25 11:40 Exam Vital Signs Temp Pulse Resp BP Pulse Ox O2 Del Method O2 Flow Rate 98.3 F 102 H 16 93/61 99 Mechanical Ventilation 50 01/18/25 18:24 01/18/25 18:26 01/18/25 17:45 01/18/25 17:45 01/18/25 18:26 01/18/25 00:00 01/15/25 18:00 FiO2 45 01/18/25 18:26 Constitutional Comments: Chronically ill Routine Respiratory Exam Comments: Ventilated Routine Abdominal Exam Comments: Lal catheter in place of gastrostomy tube Results Labs 01/18/25 05:21 01/18/25 05:21 Labs: Short CBC 01/18/25 Range/Units 05:21 WBC 14.7 H D (3.8-10.6) Thou/mm3 Hgb 7.1 L (13.5-16.0) g/dL Hct 22.9 L (41.0-53.0) % Plt Count 273 D (140-440) Thou/mm3 BMP 01/18/25 05:21 Sodium 147 H Potassium 3.3 L Chloride 115 H Carbon Dioxide 21.2 BUN 54 H Creatinine 1.8 H Glucose 163 H Calcium 8.3 Liver Function 01/18/25 Range/Units 05:21 Total Bilirubin < 0.2 L (0.3-1.2) mg/dL AST 38 H (0-34) U/L ALT 86 H (10-49) U/L Alkaline Phosphatase 200 H D (46-116) U/L Albumin 3.0 L D (3.5-5.0) gm/dL ABG Interpretation ABG results: 01/05/25 19:43 ABG pH 7.39 ABG pCO2 40 ABG pO2 93 ABG HCO3 24 ABG O2 Saturation 98 ABG Base Excess -1 Assessment and Plan Additional Assessment & Plan Additional Plan: # PEG tube evaluation plan Consent obtained for removal of the existing Lal catheter with placement of a new [place] 20 CONNOR tube at the bedside we will proceed with the procedure Thank you for the opportunity participate in care of this patient other medical problems include # Anoxic encephalopathy secondary to cardiac arrest requiring tracheostomy and ventilator dependent # Obstructive uropathy requiring nephrostomy tube # Admitted with sepsis hypotension and tachycardia Thank you very much for the opportunity to participate in care of this patient
--- NOTE | 2025-01-18 18:44 | PD.IMOPNOTE ---
Date of Procedure 01/18/25 Pre Op Diagnosis Malfunctioning PEG tube Post Op Diagnosis Removal and placement of the existing PEG tube Procedure Removal of the existing Lal catheter Placement of a new CONNOR 20 [place] PEG tube Findings Patient was at the bedside in the ICU balloon of the existing Lal catheter was deflated The Lal catheter was pulled out In its place [place] 20 CONNOR gastrostomy tube was placed in position and the balloon was inflated with 10 cc of sterile water and tube was secured in position Procedure Description As above Pathology / specimen None Pathology comment: No pathology specimen Estimated Blood Loss 0 Surgeon Pradip Salazar MD Diagnosis Problem List Completed Was Problem List Reviewed/Reconciled?: Yes
[2025-01-18] MEDS: LACTULOSE SYRUP 20 GM/30 ML UDC GT (21:21)
[2025-01-18] MEDS: Norepinephrine/NS 16mg/250ml 16 MG/250 ML BAG 5.163 MG IV (23:07)
[2025-01-19] VITALS (87 sets, daily range): BP systolic 73–119; BP diastolic 43–76; PULSE 84–108; RESP 16–41; TEMP 36.1–37.3; O2SAT 95–100; BMI 21.7
[2025-01-19] MEDS: RINGERS LACTATED 1000 ML 1,000 ML 100 ML IV ×3 (03:39→22:13)
[2025-01-19 05:40] LABS: Basophils # (Auto) 0.1 Thou/mm3 (0.0-0.2); Basophils % (Auto) 1 % (0-2.5); Eosinophils # (Auto) 1.8 Thou/mm3 (0.0-0.5); Eosinophils % (Auto) 13 % (0-10); Hematocrit 25.1 % (41.0-53.0); Immature Granulocytes % (Auto) 1 % (0-0); Immature Granulocytes Auto 0.09 Thou/mm3 (0.00-0.00); Lymphocytes # (Auto) 1.8 Thou/mm3 (1.0-4.8); Lymphocytes % (Auto) 13 % (10-50); Mean Corpuscular HGB Conc 30.7 g/dl (31.0-37.0); Mean Corpuscular Hemoglobin 29.2 pg (25.0-35.0); Mean Corpuscular Volume 95 fL (80-100); Monocytes # (Auto) 0.9 Thou/mm3 (0.0-0.8); Monocytes % (Auto) 7 % (0-12); Neutrophils # (Auto) 8.8 Thou/mm3 (1.8-7.7); Neutrophils % (Auto) 65 % (37-80); Nucleated Red Blood Cell % 0 /100 WBC (0); Platelet Count 329 Thou/mm3 (140-440); Red Blood Count 2.64 Miln/mm3 (4.50-5.90); White Blood Count 13.4 Thou/mm3 (3.8-10.6)
[2025-01-19 05:56] LABS: Alanine Aminotransferase 62 U/L (10-49); Albumin, Serum 3.2 gm/dL (3.5-5.0); Albumin/Globulin Ratio 1.1 (1.2-2.2); Alkaline Phosphatase 201 U/L (46-116); Anion Gap 9 (7-16); Aspartate Amino Transferase 17 U/L (0-34); BUN/Creatinine Ratio 24 Ratio (12-20); Bilirubin,Total 0.2 mg/dL (0.3-1.2); Blood Urea Nitrogen 45 mg/dL (9-23); Calcium 8.8 mg/dL (8.3-10.6); Calcium (Corrected) 9.4 mg/dL (8.5-10.1); Carbon Dioxide 25.2 mMol/L (20.0-31.0); Chloride 115 mMol/L (98-107); Creatinine (Component) 1.9 mg/dL (0.6-1.3); Estimated Creatinine Clearance 45.3 mL/min (>60); Globulin 2.9 gm/dL (2.3-3.5); Glucose 145 mg/dL (74-106); Osmolality,Calculated 310 (275-295); Potassium 3.8 mMol/L (3.4-5.1); Sodium 149 mMol/L (136-145); Total Protein 6.1 gm/dL (5.7-8.2); Vancomycin,Random 15.2 mcg/mL; eGFR 45 See Note
[2025-01-19] MEDS: LACTULOSE SYRUP 20 GM/30 ML UDC GT ×3 (05:59→21:51)
[2025-01-19] MEDS: BACLOFEN 10 MG TABLET 5 MG PO ×3 (05:59→21:51)
[2025-01-19 06:10] LABS: Hemoglobin 7.7 g/dL (13.5-16.0)
[2025-01-19] MEDS: IPRATROPIUM RT 0.5 MG/ 2.5 ML NEBU INH ×3 (06:22→22:00)
[2025-01-19] MEDS: LEVALBUTEROL RT 1.25 MG/0.5 ML NEBU INH ×3 (06:22→22:00)
--- NOTE | 2025-01-19 06:50 | XR_ITS ---
Examination: AP chest single view Technique one AP portable upright chest single view Exam date and time: January 19, 2025 0718 hrs. Comparison January 18, 2025 Indications: Hypoxic respiratory failure, pneumonia on chest film January 18, 2025 Findings: Significant left lung and significant right base pneumonia Left internal jugular central line tip right atrium Tracheostomy tube tip 6.8 cm above dudley Stable cardiac contour Impression: Significant bilateral pneumonia remains
--- NOTE | 2025-01-19 08:54 | PC.SS ---
Update: SCRUM COACH confirmed with ICU medical team that patient will not require IV medication for duration of 1 month. IV medication will be needed for approximately 1 week. Once medically stable patient to transition back to [facility] Care at the [facility].
[2025-01-19] MEDS: LANSOPRAZOLE 30 MG TAB.RAP.DR GT (09:32)
[2025-01-19] MEDS: MULTIVITAMIN 15 ML UDC PO (09:32)
[2025-01-19] MEDS: levETIRAcetam LIQD 500 MG/5 ML UDC 1000 MG GT ×2 (09:32→21:55)
[2025-01-19] MEDS: ENOXAPARIN SOD INJ 60 MG/0.6 ML SYRINGE SC ×2 (09:32→21:51)
[2025-01-19] MEDS: MEROPENEM INJ 1,000 MG in SODIUM CHLORIDE 0.9% (Popper) 50 ML 100 MG IV ×2 (09:33→21:52)
[2025-01-19] MEDS: FLUDROCORTISONE ACETATE 0.1 MG TABLET GT ×2 (09:33→21:51)
[2025-01-19] MEDS: VIT B12/Vit C/FA (Nephrovite) TABLET 1 TAB PO (09:33)
[2025-01-19] MEDS: Silvasorb Gel 45 ML TUBE TOP (09:33)
[2025-01-19] MEDS: PHENYTOIN 100 MG/4 ML UDC 600 MG GT ×2 (10:04→21:51)
[2025-01-19] MEDS: VANCOMYCIN/NS 500 MG IVPB 100 ML 120 MG IV (10:05)
--- NOTE | 2025-01-19 10:14 | CHAP ---
Patient was visited by a Spiritual Care Volunteer on 01/19/2025 between 0900 and 1015 and received comfort, encouragement and/or prayer.
--- NOTE | 2025-01-19 11:43 | PC.SS ---
Update: Patient is Trach/PEG. Off of sedation. In possession of multiple wounds, wound care nurse is following. In possession of nephrostomy tube. Patient no longer receiving pressor support.
[2025-01-19] MEDS: INSULIN LISPRO (AdmeLOG) 1 UNIT/0.01 ML UNIT SC (11:53)
[2025-01-19 13:02] LABS: Lactate (Lactic Acid) 1.6 mMol/L (0.4-2.0)
--- NOTE | 2025-01-19 13:58 | PD.RESPRO ---
Documentation for date of: 01/19/25 Subjective Subjective Interval history: Patient is a 39 years old male with past medical history of anoxic brain injury secondary to cardiac arrest, status post tracheostomy/mechanical ventilation and PEG tube placement, suprapubic catheter, right nephrostomy tube secondary to obstructive uropathy and bilateral upper extremity DVT who was admitted on 01/05/2025 to ICU for management of septic shock secondary to UTI, pneumonia and osteomyelitis of right ischium. Patient received Levophed, IV antibiotics, fluid, next day his blood pressure improved and was able to get off vasopressors and was transferred to telemetry. Patient then started showing improvement, was found to have Pseudomonas, Klebsiella and Proteus on sputum culture. Infectious disease was also following. Patient was initially on vancomycin and Zosyn, was changed to ertapenem and was plan to discharge with 6-week course of antibiotics. Patient continued to be on midodrine 10 mg 3 times daily throughout the course. PICC line was ordered but patient had bilateral upper extremity DVT, the line was unsuccessful, and the plan was to discharge today with a central line and IV antibiotics. But this morning, patient had leukocytosis and tachycardia. Repeat blood cultures were drawn, antibiotics switched to vancomycin and cefepime. Patient also had a rapid response this morning, he was agitated, underwent deep suctioning of tracheostomy tube. He also received 500 cc IV fluid bolus as his blood pressure was becoming soft. Patient again have rapid response this evening due to low blood pressure. Patient had MAP around 58 at bedside. Is also noted to have fever this morning as well as this time of 202.1 ?F. Lactate level was obtained, 1.4. Patient received another 1250 cc of IV normal saline bolus. Despite the boluses, patient continued to have MAP below 60. We will transfer him to ICU for management of septic shock and start him on vasopressors. 01/16/2025: Patient was seen and examined at bedside this morning. Patient nonverbal at baseline. Upon chart review patient has multiple drugs growing up multiple cultures including trachea, sputum, blood, and urine. Patient was receiving cefepime and vancomycin, will continue with the vancomycin, but will switch to meropenem today. Will also change patient's right central line as well as his suprapubic catheter in the setting of possible bacterial seeding. Spoke with patient's son who is medical decision-maker via the phone to which she consented to place patient's left central line. Patient tolerated procedure well. Also gave a 500 mL bolus of LR patient is seizing volume depleted. Patient still on Levophed, but will continue to wean off. 01/17/2025: Patient was seen and examined at bedside this morning. Overnight patient required increased doses of Levophed due to hypotension. Patient's last fever was yesterday evening around 8 PM. Patient was still tachycardic this morning and seemed a little bit diaphoretic therefore send patient is IVC with bedside echo and was collapsible therefore gave patient 1 L bolus of IV fluids and will give patient maintaining fluids at 100 cc/h. Patient also became hypernatremic therefore we will start patient on 75 cc/h. Patient's nephrostomy tube was changed in December or November as per the patient is not. WBCs are downtrending. Blood cultures have been negative in the past 48 hours. Will continue with meropenem and vancomycin for now. 01/18/2025: Patient was seen examined at bedside this morning. No acute overnight events. Patient yesterday evening did spike a fever and his urine culture did come back with cheese therefore started patient on micafungin. He received 2 days of micafungin, but will discontinue today given that blood cultures are negative. Patient's tachycardia has resolved this morning he looks a little less diaphoretic. Patient yesterday was placed back on Levophed and is currently on Levophed 0.09. There was some question about his nephrostomy tube which could have been out of place as it was not suture, but patient's nephrostomy tube is still draining well and on abdominal x-ray at this appeared to be on the same location as previously. Today while turning the patient to clean his PEG tube dislodged therefore we will have GI place PEG tube back in place. Placed Lal catheter with a technique sterile into the PEG tube orifice to keep it patent. Consulted surgery for possible debridement of patient's sacral ulcer to see if this could be a source of infection. Will continue with meropenem for now and vancomycin. If debridement is not an option at this time patient will most likely need a bronchoscopy. 01/19/2025: Patient was seen and examined at bedside this morning. No acute overnight events. Patient did not have any fevers overnight and his WBCs are downtrending. Took the patient off Levophed today and ordered a lactic acid which demonstrated the patient was perfusing well as well as he was producing urine. Will keep patient on meropenem until 01/26/2025. Exam Vital Signs Temp Pulse Resp BP Pulse Ox O2 Del Method O2 Flow Rate 97.8 F 100 20 85/55 L 100 Trach Collar 50 01/19/25 12:00 01/19/25 12:30 01/19/25 12:17 01/19/25 12:30 01/19/25 12:30 01/19/25 12:00 01/15/25 18:00 FiO2 45 01/19/25 12:00 Narrative Exam General: Nonverbal, but moving all extremities. Ill-appearing thin male. Eyes: Pupils sluggish, extraocular muscles appear intact, but patient unable to follow commands therefore cannot trace. Ears: No visible ear discharge Nose: No visible nasal discharge. Mouth/Throat: Moist mucous membranes, no redness, no lesions. Neck: Neck supple, no cervical lymphadenopathy. Right IJ, tracheostomy in place Lungs: Clear breath sounds Upper lobes WILLIAN and still coarse in R lower lobe, No accessory muscle use. Cardio: Normal S1/S2, regular rhythm, no murmurs, no JVD Abdomen: Soft, non-tender, no palpable masses, peristalsis present, no guarding or rebound. PEG tube in place with no discharge, suprapubic Lal in place with no discharge, nephrostomy tube in place and draining. Extremities: Bilateral lower extremity contractures, able to move all extremities. Skin: Clean wound on the left ear as patient mostly on his left side, Sacral an buttock ulcer with good granulation. Neuro: Patient is nonverbal, not able to track, unable to follow commands, able to move all extremities Objective Labs 01/21/25 04:25 01/21/25 04:25 Labs: Laboratory Results - last 24 hr 01/19/25 01/19/25 04:56 12:22 WBC 13.4 H RBC 2.64 L Hgb 7.7 L Hct 25.1 L MCV 95 MCH 29.2 MCHC 30.7 L RDW Std Deviation 49.0 H Plt Count 329 D Neut % (Auto) 65 Lymph % (Auto) 13 [place] % (Auto) 7 Eos % (Auto) 13 H Baso % (Auto) 1 Neut # (Auto) 8.8 H Lymph # (Auto) 1.8 [place] # (Auto) 0.9 H Eos # (Auto) 1.8 H Baso # (Auto) 0.1 Immature Gran # (Auto) 0.09 H Absolute Nucleated RBC 0.00 Immature Gran % 1 H Nucleated RBC % 0 Sodium 149 H Potassium 3.8 D Chloride 115 H Carbon Dioxide 25.2 Anion Gap 9 BUN 45 H Creatinine 1.9 H Estim Creat Clear Calc 45.3 L eGFR 45 L BUN/Creatinine Ratio 24 H Glucose 145 H Calculated Osmolality 310 H Lactic Acid 1.6 Calcium 8.8 Corrected Calcium 9.4 Total Bilirubin 0.2 L AST 17 ALT 62 H Alkaline Phosphatase 201 H Total Protein 6.1 Albumin 3.2 L Globulin 2.9 Albumin/Globulin Ratio 1.1 L Random Vancomycin 15.2 ABG Interpretation ABG results: 01/05/25 19:43 ABG pH 7.39 ABG pCO2 40 ABG pO2 93 ABG HCO3 24 ABG O2 Saturation 98 ABG Base Excess -1 Quality Measures Quality Measures VTE prophylaxis Assessment & Plan Assessment Current Active Medications: Generic Name Dose Route Start Last Admin Trade Name Freq PRN Reason Stop Dose Admin Acetaminophen 650 mg 01/17/25 16:26 01/18/25 18:24 Acetaminophen 325 Mg Tablet PO 02/16/25 16:25 650 mg Q6HR PRN Administration pain and Fever >100.4 Albuterol 2.5 mg 01/07/25 15:17 Albuterol Rt 2.5 Mg/0.5 Ml Nebu INH 02/06/25 14:58 Q6H PRN shortness of breath or wheezing Baclofen 5 mg 01/07/25 22:00 01/19/25 05:59 Baclofen 10 Mg Tablet PO 02/06/25 21:59 5 mg TID KIT Administration Gabapentin 250 Mg/5 0 ea 01/07/25 18:42 01/18/25 08:30 Ml Solution GT 02/06/25 18:41 5 ml Q8HR PRN Administration HICCUPS Dextrose 25 ml 01/05/25 19:11 Dextrose 50%-Water Inj 50 Ml Syringe IV 02/04/25 19:10 Q15MIN PRN BG 50-70 responsive npo pt Dextrose 50 ml 01/05/25 19:11 Dextrose 50%-Water Inj 50 Ml Syringe IV 02/04/25 19:10 Q15MIN PRN BG <50 OR BG <70 & pt unresponsive Enoxaparin Sodium 60 mg 01/07/25 21:00 01/19/25 09:32 Enoxaparin Sod Inj 60 Mg/0.6 Ml Syringe SC 01/21/25 20:59 60 mg BID KIT Administration Fludrocortisone Acetate 0.1 mg 01/07/25 21:00 01/19/25 09:33 Fludrocortisone Acetate 0.1 Mg Tablet GT 02/06/25 20:59 0.1 mg BID KIT Administration Glucagon 1 mg 01/05/25 19:11 Glucagon Inj 1 Mg Vial IM Q15MIN PRN BG <70, and no IV access Norepinephrine Bitartrate 16 mg in 250 mls @ 2.868 mls/hr 01/16/25 00:02 01/19/25 10:44 Levophed In Ns 16mg/250ml IV 02/15/25 00:01 0 mcg/kg/min .Q24H PRN 0 mls/hr PER PROTOCOL Titration Protocol 0.05 MCG/KG/MIN Vasopressin/Sodium Chloride 20 unit in 100 mls @ 9 mls/hr 01/16/25 06:33 01/17/25 15:00 Vasostrict/Ns Ivpb IV 02/15/25 06:32 0 unit/min .Q11H7M PRN 0 mls/hr PER PROTOCOL Titration Protocol 0.03 UNIT/MIN Meropenem 1,000 mg/ Sodium 50 mls @ 100 mls/hr 01/16/25 09:30 01/19/25 09:33 Chloride IV 01/26/25 09:00 100 mls/hr BID KIT Administration Lactated Ringer's 1,000 mls @ 100 mls/hr 01/17/25 10:11 01/19/25 11:52 Lactated Ringers IV 02/16/25 10:10 100 mls/hr .Q10H KIT Administration Chlorpromazine HCl 25 mg/ 51 mls @ 102 mls/hr 01/17/25 16:13 01/18/25 08:29 Sodium Chloride IV 02/16/25 16:12 102 mls/hr Q6HR PRN Administration HICCUPS Insulin Human Lispro 0 unit 01/06/25 06:00 01/19/25 11:53 Insulin Lispro (Admelog) 1 Unit/0.01 Ml Unit SC 02/05/25 05:59 1 unit Q6HR KIT Administration Protocol Ipratropium [place] 0.5 mg 01/07/25 21:00 01/19/25 12:15 Ipratropium Rt 0.5 Mg/ 2.5 Ml Nebu INH 02/06/25 20:59 0.5 mg QIDRT KIT Administration Lactulose 20 gm 01/14/25 22:00 01/19/25 05:59 Lactulose Syrup 20 Gm/30 Ml Udc GT 02/13/25 21:59 20 gm TID KIT Administration Protocol Lansoprazole 30 mg 01/10/25 09:00 01/19/25 09:32 Lansoprazole 30 Mg Tab.Rap.Dr GT 02/07/25 08:59 30 mg QDAY KIT Administration Levalbuterol HCl 1.25 mg 01/07/25 21:00 01/19/25 12:15 Levalbuterol Rt 1.25 Mg/0.5 Ml Nebu INH 02/06/25 20:59 1.25 mg QIDRT KIT Administration Levetiracetam 1,000 mg 01/14/25 13:45 01/19/25 09:32 Levetiracetam Liqd 500 Mg/5 Ml [facility] 02/13/25 13:44 1,000 mg BID KIT Administration Midodrine 10 mg 01/06/25 18:38 01/15/25 20:22 Midodrine 5 Mg Tablet PO 02/05/25 08:59 10 mg TID KIT Administration Multivitamins/Minerals 15 ml 01/08/25 09:00 01/19/25 09:32 Multivitamin 15 Ml Udc PO 02/07/25 08:59 15 ml QDAY KIT Administration Ondansetron HCl 4 mg 01/05/25 17:09 Ondansetron Inj 2 Mg/Ml Inj 2 Ml IV 02/04/25 17:08 Q6H PRN NAUSEA OR VOMITING Protocol Pharmacy Consult 1 each 01/16/25 09:00 Vancomycin Pharmacy To Dose 1 Each Each IV 02/15/25 08:59 QDAY PRN consult Phenytoin 600 mg 01/07/25 21:00 01/19/25 10:04 Phenytoin 100 Mg/4 Ml Udc GT 02/06/25 20:59 600 mg BID KIT Administration Sodium Chloride 3 ml 01/07/25 17:55 Sodium Chloride Rt Lala 0.9% 3 Ml Nebu INH 02/06/25 17:54 PRN PRN SOLN Vitamin B Complex/Vit C/Folic Acid 1 tab 01/08/25 09:00 01/19/25 09:33 Vit B12/Vit C/Fa (Nephrovite) Tablet PO 02/07/25 08:59 1 tab QDAY KIT Administration Plan 39-year-old male with past medical history of 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 Patient had rapid response called yesterday for sepsis alert was called Chest x-ray on 01/15/2025 continue to show significant bibasilar pneumonia CT chest/abdomen/pelvis from 01/05/2025 showed osteomyelitis of right ischium and recommend ultrasound soft tissue right lower lateral abdominal wall to assess soft tissue nodules in the subcutaneous tissue, the largest 22 mm Leukocytes downtrending Central line on left IJ placed on 01/16/2025 meropenem today [01/16/2025?] Will continue with vancomycin and meropenem for now Off vasopressors, perfusing well. Lactic normal. Respiratory #Chronic tracheostomy tube on mechanical ventilation # Bibasilar pneumonia Chest x-ray on 01/15/2025 show bibasilar pneumonia Continue meropenem until 01/26/2025 and vancomycin for now GI #Patient has a PEG tube placed #GERD PEG tube dislodged today GI consulted for PEG tube placement again We will continue with lansoprazole Will resume tube feeds #Transaminitis, improving Patient came in initially with AST 814, ALT 1105, ALP 413 Could be due to shock liver in the setting of shock Will continue to monitor for now Renal #Obstructive uropathy # ELDON on CKD, improving Patient has a nephrostomy tube (placed at [facility]) as well as suprapubic catheter Will change patient's suprapubic catheter Creatinine of 1.9 today from his baseline of around 1.8 to 2 IV fluids Renally dose medications Avoid nephrotoxic agents #Hypernatremia Patient sodium went up to 148 today Most likely hemoconcentration Increase free water flushes 100 cc/h Endocrine #Diabetes mellitus type 2 Currently on insulin sliding scale, hypoglycemia protocol in place Hematology #Anemia of chronic disease Patient's hemoglobin was 7.7 today This most likely hemodilution in the setting of aggressive IV fluids resuscitation yesterday No signs of active bleeding ID #septic shock #Pneumonia #Osteomyelitis of right ischium #Pressure ulcer Latest blood cultures drawn on 01/15/2025 but negative Urine culture from 01/15/2025 Received 2 days of micafungin Will continue with meropenem until 01/26/2025 and vancomycin Consulted general surgery for possible debridement MSK #Right upper extremity DVT Venous Doppler study of right upper extremity showed thrombus involving the right cephalic and right brachial veins We will continue with warm compress and refrain from any IV lines on the right upper extremity Will continue lovenox 60 mg BID Hospital Maintenance: Diet: Tube feeds DVT ppx: lovenox GI ppx: Lansoprazole 40 mg BID IV lines: CIV ([facility]) Lal: suprapubic Code status: Full Dispo: ICU for septic shock Case disclosed with Attending Dr. Amada Etienne PGY1 Attending Provider Attestation/Addendum Patient seen and examined with above resident, Ted Etienne MD. I agree with the findings, assessment, and plan of care as documented except for any differences below. Patient with continued slow improvement from my perspective. However hypotension continues to persist especially overnight with reinitiation of vasopressors. Will challenge once again off of vasopressors with need to exclude presence of hypoperfusion by monitoring urine output and will send lactic acid as surrogate marker. Patient not visited by family today. Will continue to update them by telephone. Patient with unchanged lung protective mechanical ventilation. He is on appropriate prophylaxis and is tolerating tube feeds at this point. Free water being adjusted as needed to maintain normal sodium. Patient's suprapubic catheter has been exchanged and nephrostomy drain remains in place with adequate output. His central line was appropriately removed as a potential alternative etiology for infection with new left subclavian in place, this will likely be discontinued as well given the previous history of superficial venous thrombosis. Continue on Lovenox twice daily for full anticoagulation. No antifungal coverage. Complete course of meropenem and vancomycin. Total critical care time: I personally spent 35 minutes for review of physiologic parameters, directing plan of care throughout the day, and coordination of care with other specialties this is exclusive of time spent teaching housestaff or performing any separate billable procedures. Patient continues require critical care services for ventilator associated pneumonia and acute on chronic hypoxic respiratory failure and septic shock. Remains at significant risk for further morbidity and mortality warranting close monitoring and care only available in the intensive care unit.
--- NOTE | 2025-01-19 20:33 | PD.IMPROG ---
Documentation for date of: 01/19/25 Subjective Subjective Interval history: Patient evaluated the newly placed PEG tube is working well Exam Vital Signs Temp Pulse Resp BP Pulse Ox O2 Del Method O2 Flow Rate 97.0 F 100 20 104/69 100 Trach Collar 50 01/19/25 16:00 01/19/25 19:30 01/19/25 12:17 01/19/25 19:30 01/19/25 19:30 01/19/25 16:00 01/15/25 18:00 FiO2 45 01/19/25 19:00 Objective Labs 01/19/25 04:56 01/19/25 04:56 Labs: Laboratory Results - last 24 hr 01/19/25 01/19/25 04:56 12:22 WBC 13.4 H RBC 2.64 L Hgb 7.7 L Hct 25.1 L MCV 95 MCH 29.2 MCHC 30.7 L RDW Std Deviation 49.0 H Plt Count 329 D Neut % (Auto) 65 Lymph % (Auto) 13 [place] % (Auto) 7 Eos % (Auto) 13 H Baso % (Auto) 1 Neut # (Auto) 8.8 H Lymph # (Auto) 1.8 [place] # (Auto) 0.9 H Eos # (Auto) 1.8 H Baso # (Auto) 0.1 Immature Gran # (Auto) 0.09 H Absolute Nucleated RBC 0.00 Immature Gran % 1 H Nucleated RBC % 0 Sodium 149 H Potassium 3.8 D Chloride 115 H Carbon Dioxide 25.2 Anion Gap 9 BUN 45 H Creatinine 1.9 H Estim Creat Clear Calc 45.3 L eGFR 45 L BUN/Creatinine Ratio 24 H Glucose 145 H Calculated Osmolality 310 H Lactic Acid 1.6 Calcium 8.8 Corrected Calcium 9.4 Total Bilirubin 0.2 L AST 17 ALT 62 H Alkaline Phosphatase 201 H Total Protein 6.1 Albumin 3.2 L Globulin 2.9 Albumin/Globulin Ratio 1.1 L Random Vancomycin 15.2 Impressions Impression: PEG tube placement working very well anoxic encephalopathy patient status post tracheostomy and ventilator dependent continue current management ABG Interpretation ABG results: 01/05/25 19:43 ABG pH 7.39 ABG pCO2 40 ABG pO2 93 ABG HCO3 24 ABG O2 Saturation 98 ABG Base Excess -1 Assessment & Plan A&P Narrative # PEG tube evaluation plan Consent obtained for removal of the existing Lal catheter with placement of a new [place] 20 [place] tube at the bedside we will proceed with the procedure Thank you for the opportunity participate in care of this patient other medical problems include # 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
[2025-01-20] VITALS (35 sets, daily range): BP systolic 81–119; BP diastolic 47–73; PULSE 88–109; RESP 16–33; TEMP 35.9–37.4; O2SAT 91–100; BMI 21.7
[2025-01-20 05:58] LABS: Basophils % (Auto) 0 % (0-2.5); Eosinophils # (Auto) 1.3 Thou/mm3 (0.0-0.5); Eosinophils % (Auto) 13 % (0-10); Hematocrit 21.4 % (41.0-53.0); Immature Granulocytes % (Auto) 1 % (0-0); Immature Granulocytes Auto 0.06 Thou/mm3 (0.00-0.00); Lymphocytes # (Auto) 1.5 Thou/mm3 (1.0-4.8); Lymphocytes % (Auto) 15 % (10-50); Mean Corpuscular HGB Conc 31.8 g/dl (31.0-37.0); Mean Corpuscular Hemoglobin 29.4 pg (25.0-35.0); Mean Corpuscular Volume 93 fL (80-100); Monocytes # (Auto) 0.7 Thou/mm3 (0.0-0.8); Monocytes % (Auto) 7 % (0-12); Neutrophils # (Auto) 6.3 Thou/mm3 (1.8-7.7); Neutrophils % (Auto) 64 % (37-80); Nucleated Red Blood Cell % 0 /100 WBC (0); Platelet Count 257 Thou/mm3 (140-440); RDW Standard Deviation 47.2 fL (35.1-43.9); Red Blood Count 2.31 Miln/mm3 (4.50-5.90); White Blood Count 9.8 Thou/mm3 (3.8-10.6)
[2025-01-20 06:02] LABS: Hemoglobin 6.8 g/dL (13.5-16.0)
[2025-01-20] MEDS: LACTULOSE SYRUP 20 GM/30 ML UDC GT (06:07)
[2025-01-20] MEDS: BACLOFEN 10 MG TABLET 5 MG PO ×3 (06:07→21:25)
[2025-01-20 06:27] LABS: Alanine Aminotransferase 45 U/L (10-49); Albumin, Serum 2.9 gm/dL (3.5-5.0); Albumin/Globulin Ratio 1.1 (1.2-2.2); Alkaline Phosphatase 183 U/L (46-116); Anion Gap 9 (7-16); Aspartate Amino Transferase 21 U/L (0-34); BUN/Creatinine Ratio 21 Ratio (12-20); Bilirubin,Total < 0.2 mg/dL (0.3-1.2); Blood Urea Nitrogen 33 mg/dL (9-23); Calcium 8.3 mg/dL (8.3-10.6); Calcium (Corrected) 9.2 mg/dL (8.5-10.1); Chloride 113 mMol/L (98-107); Creatinine (Component) 1.6 mg/dL (0.6-1.3); Estimated Creatinine Clearance 52.6 mL/min (>60); Globulin 2.7 gm/dL (2.3-3.5); Glucose 82 mg/dL (74-106); Osmolality,Calculated 300 (275-295); Potassium 3.2 mMol/L (3.4-5.1); Sodium 148 mMol/L (136-145); Total Protein 5.6 gm/dL (5.7-8.2); Vancomycin,Random 16.2 mcg/mL; eGFR 55 See Note
[2025-01-20 06:36] LABS: Hematocrit 21.9 % (41.0-53.0)
[2025-01-20 06:48] LABS: Hemoglobin 6.8 g/dL (13.5-16.0)
--- NOTE | 2025-01-20 06:50 | XR_ITS ---
Examination: AP chest single view Technique one AP portable semiupright chest single view Exam date and time: January 20, 2025 0720 hrs. Comparison January 19, 2025 Indications: Pneumonia, hypoxic respiratory failure this week. Findings: Again noted significant pneumonia ARDS pattern, perihilar and both lung bases Left internal jugular central line tip SVC, no pneumothorax Tracheostomy tube tip 6.8 cm above dudley Mild enlargement left ventricle Impression: Significant pneumonia/ARDS pattern remains
[2025-01-20] MEDS: LEVALBUTEROL RT 1.25 MG/0.5 ML NEBU INH ×4 (06:54→22:05)
[2025-01-20] MEDS: IPRATROPIUM RT 0.5 MG/ 2.5 ML NEBU INH ×4 (06:55→22:05)
[2025-01-20] MEDS: POTASSIUM CHLORIDE 10% 20 MEQ/15 ML UDC 40 MEQ GT (07:21)
[2025-01-20] MEDS: levETIRAcetam LIQD 500 MG/5 ML UDC 1000 MG GT ×2 (09:27→21:24)
[2025-01-20] MEDS: VIT B12/Vit C/FA (Nephrovite) TABLET 1 TAB PO (09:27)
[2025-01-20] MEDS: MEROPENEM INJ 1,000 MG in SODIUM CHLORIDE 0.9% (Popper) 50 ML 100 MG IV ×2 (09:27→21:24)
[2025-01-20] MEDS: LANSOPRAZOLE 30 MG TAB.RAP.DR GT (09:27)
[2025-01-20] MEDS: Silvasorb Gel 45 ML TUBE TOP (09:27)
[2025-01-20] MEDS: PHENYTOIN 100 MG/4 ML UDC 600 MG GT ×2 (09:27→21:26)
[2025-01-20] MEDS: MULTIVITAMIN 15 ML UDC PO (09:28)
[2025-01-20] MEDS: FLUDROCORTISONE ACETATE 0.1 MG TABLET GT ×2 (09:28→21:25)
[2025-01-20] MEDS: VANCOMYCIN/NS 500 MG IVPB 100 ML 120 MG IV (10:19)
--- NOTE | 2025-01-20 12:56 | PD.RESPRO ---
Documentation for date of: 01/20/25 Subjective Subjective Interval history: Patient is a 39 years old male with past medical history of anoxic brain injury secondary to cardiac arrest, status post tracheostomy/mechanical ventilation and PEG tube placement, suprapubic catheter, right nephrostomy tube secondary to obstructive uropathy and bilateral upper extremity DVT who was admitted on 01/05/2025 to ICU for management of septic shock secondary to UTI, pneumonia and osteomyelitis of right ischium. Patient received Levophed, IV antibiotics, fluid, next day his blood pressure improved and was able to get off vasopressors and was transferred to telemetry. Patient then started showing improvement, was found to have Pseudomonas, Klebsiella and Proteus on sputum culture. Infectious disease was also following. Patient was initially on vancomycin and Zosyn, was changed to ertapenem and was plan to discharge with 6-week course of antibiotics. Patient continued to be on midodrine 10 mg 3 times daily throughout the course. PICC line was ordered but patient had bilateral upper extremity DVT, the line was unsuccessful, and the plan was to discharge today with a central line and IV antibiotics. But this morning, patient had leukocytosis and tachycardia. Repeat blood cultures were drawn, antibiotics switched to vancomycin and cefepime. Patient also had a rapid response this morning, he was agitated, underwent deep suctioning of tracheostomy tube. He also received 500 cc IV fluid bolus as his blood pressure was becoming soft. Patient again have rapid response this evening due to low blood pressure. Patient had MAP around 58 at bedside. Is also noted to have fever this morning as well as this time of 202.1 ?F. Lactate level was obtained, 1.4. Patient received another 1250 cc of IV normal saline bolus. Despite the boluses, patient continued to have MAP below 60. We will transfer him to ICU for management of septic shock and start him on vasopressors. 01/16/2025: Patient was seen and examined at bedside this morning. Patient nonverbal at baseline. Upon chart review patient has multiple drugs growing up multiple cultures including trachea, sputum, blood, and urine. Patient was receiving cefepime and vancomycin, will continue with the vancomycin, but will switch to meropenem today. Will also change patient's right central line as well as his suprapubic catheter in the setting of possible bacterial seeding. Spoke with patient's son who is medical decision-maker via the phone to which she consented to place patient's left central line. Patient tolerated procedure well. Also gave a 500 mL bolus of LR patient is seizing volume depleted. Patient still on Levophed, but will continue to wean off. 01/17/2025: Patient was seen and examined at bedside this morning. Overnight patient required increased doses of Levophed due to hypotension. Patient's last fever was yesterday evening around 8 PM. Patient was still tachycardic this morning and seemed a little bit diaphoretic therefore send patient is IVC with bedside echo and was collapsible therefore gave patient 1 L bolus of IV fluids and will give patient maintaining fluids at 100 cc/h. Patient also became hypernatremic therefore we will start patient on 75 cc/h. Patient's nephrostomy tube was changed in December or November as per the patient is not. WBCs are downtrending. Blood cultures have been negative in the past 48 hours. Will continue with meropenem and vancomycin for now. 01/18/2025: Patient was seen examined at bedside this morning. No acute overnight events. Patient yesterday evening did spike a fever and his urine culture did come back with cheese therefore started patient on micafungin. He received 2 days of micafungin, but will discontinue today given that blood cultures are negative. Patient's tachycardia has resolved this morning he looks a little less diaphoretic. Patient yesterday was placed back on Levophed and is currently on Levophed 0.09. There was some question about his nephrostomy tube which could have been out of place as it was not suture, but patient's nephrostomy tube is still draining well and on abdominal x-ray at this appeared to be on the same location as previously. Today while turning the patient to clean his PEG tube dislodged therefore we will have GI place PEG tube back in place. Placed Lal catheter with a technique sterile into the PEG tube orifice to keep it patent. Consulted surgery for possible debridement of patient's sacral ulcer to see if this could be a source of infection. Will continue with meropenem for now and vancomycin. If debridement is not an option at this time patient will most likely need a bronchoscopy. 01/19/2025: Patient was seen and examined at bedside this morning. No acute overnight events. Patient did not have any fevers overnight and his WBCs are downtrending. Took the patient off Levophed today and ordered a lactic acid which demonstrated the patient was perfusing well as well as he was producing urine. Will keep patient on meropenem until 01/26/2025. 01/20/2025: Patient seen examined at bedside this morning. No acute overnight events. Patient did not spike any fevers and WBCs continue to downtrend. Patient's blood pressure has been stable off pressors. Patient's hemoglobin did drop to 6.8 this morning and on repeat was still at 6.8 therefore we will transfuse 1 PRBC and ordered fecal occult blood. Patient's central line will need to be taken out tomorrow after he receives his antibiotics and he has his PICC line inserted. Consent was given for blood transfusion as well as PICC line insertion by patient's aunt and confirmed by patient's nurse today. At this time patient stable enough to be downgraded to the medical floors. Exam Vital Signs Temp Pulse Resp BP Pulse Ox O2 Del Method O2 Flow Rate 99.4 F 90 21 H 97/65 99 Mechanical Ventilation 50 01/20/25 08:00 01/20/25 10:31 01/20/25 10:31 01/20/25 10:00 01/20/25 10:31 01/20/25 08:00 01/15/25 18:00 FiO2 45 01/20/25 10:31 Narrative Exam General: Nonverbal, but moving all extremities. Ill-appearing thin male. Eyes: Pupils sluggish, extraocular muscles appear intact, but patient unable to follow commands therefore cannot trace. Ears: No visible ear discharge Nose: No visible nasal discharge. Mouth/Throat: Moist mucous membranes, no redness, no lesions. Neck: Neck supple, no cervical lymphadenopathy. Right IJ, tracheostomy in place Lungs: Clear breath sounds Upper lobes WILLIAN and still coarse in R lower lobe, No accessory muscle use. Cardio: Normal S1/S2, regular rhythm, no murmurs, no JVD Abdomen: Soft, non-tender, no palpable masses, peristalsis present, no guarding or rebound. PEG tube in place with no discharge, suprapubic Lal in place with no discharge, nephrostomy tube in place and draining. Extremities: Bilateral lower extremity contractures, able to move all extremities. Skin: Clean wound on the left ear as patient mostly on his left side, Sacral an buttock ulcer with good granulation. Neuro: Patient is nonverbal, not able to track, unable to follow commands, able to move all extremities Objective Labs 01/21/25 04:25 01/21/25 04:25 Labs: Laboratory Results - last 24 hr 01/19/25 01/20/25 01/20/25 12:22 04:35 06:15 WBC 9.8 RBC 2.31 L Hgb 6.8 L* 6.8 L* Hct 21.4 L* 21.9 L* MCV 93 MCH 29.4 MCHC 31.8 RDW Std Deviation 47.2 H Plt Count 257 D Neut % (Auto) 64 Lymph % (Auto) 15 [place] % (Auto) 7 Eos % (Auto) 13 H Baso % (Auto) 0 Neut # (Auto) 6.3 Lymph # (Auto) 1.5 [place] # (Auto) 0.7 Eos # (Auto) 1.3 H Baso # (Auto) 0.0 Immature Gran # (Auto) 0.06 H Absolute Nucleated RBC 0.00 Immature Gran % 1 H Nucleated RBC % 0 Sodium 148 H Potassium 3.2 L D Chloride 113 H Carbon Dioxide 26.0 Anion Gap 9 BUN 33 H Creatinine 1.6 H Estim Creat Clear Calc 52.6 L eGFR 55 L BUN/Creatinine Ratio 21 H Glucose 82 D Calculated Osmolality 300 H Lactic Acid 1.6 Calcium 8.3 Corrected Calcium 9.2 Total Bilirubin < 0.2 L AST 21 ALT 45 Alkaline Phosphatase 183 H Total Protein 5.6 L Albumin 2.9 L Globulin 2.7 Albumin/Globulin Ratio 1.1 L Random Vancomycin 16.2 Blood Type Antibody Screen Crossmatch Blood Bank Wristband ID 01/20/25 07:15 WBC RBC Hgb Hct MCV MCH MCHC RDW Std Deviation Plt Count Neut % (Auto) Lymph % (Auto) [place] % (Auto) Eos % (Auto) Baso % (Auto) Neut # (Auto) Lymph # (Auto) [place] # (Auto) Eos # (Auto) Baso # (Auto) Immature Gran # (Auto) Absolute Nucleated RBC Immature Gran % Nucleated RBC % Sodium Potassium Chloride Carbon Dioxide Anion Gap BUN Creatinine Estim Creat Clear Calc eGFR BUN/Creatinine Ratio Glucose Calculated Osmolality Lactic Acid Calcium Corrected Calcium Total Bilirubin AST ALT Alkaline Phosphatase Total Protein Albumin Globulin Albumin/Globulin Ratio Random Vancomycin Blood Type O Positive Antibody Screen NEGATIVE Crossmatch See Detail Blood Bank Wristband ID Yes ABG Interpretation ABG results: 01/05/25 19:43 ABG pH 7.39 ABG pCO2 40 ABG pO2 93 ABG HCO3 24 ABG O2 Saturation 98 ABG Base Excess -1 Quality Measures Quality Measures VTE prophylaxis Assessment & Plan Assessment Current Active Medications: Generic Name Dose Route Start Last Admin Trade Name Kamala PRN Reason Stop Dose Admin Acetaminophen 650 mg 01/17/25 16:26 01/18/25 18:24 Acetaminophen 325 Mg Tablet PO 02/16/25 16:25 650 mg Q6HR PRN Administration pain and Fever >100.4 Albuterol 2.5 mg 01/07/25 15:17 Albuterol Rt 2.5 Mg/0.5 Ml Nebu INH 02/06/25 14:58 Q6H PRN shortness of breath or wheezing Baclofen 5 mg 01/07/25 22:00 01/20/25 06:07 Baclofen 10 Mg Tablet PO 02/06/25 21:59 5 mg TID KIT Administration Gabapentin 250 Mg/5 0 ea 01/07/25 18:42 01/18/25 08:30 Ml Solution GT 02/06/25 18:41 5 ml Q8HR PRN Administration HICCUPS Dextrose 25 ml 01/05/25 19:11 Dextrose 50%-Water Inj 50 Ml Syringe IV 02/04/25 19:10 Q15MIN PRN BG 50-70 responsive npo pt Dextrose 50 ml 01/05/25 19:11 Dextrose 50%-Water Inj 50 Ml Syringe IV 02/04/25 19:10 Q15MIN PRN BG <50 OR BG <70 & pt unresponsive Enoxaparin Sodium 60 mg 01/07/25 21:00 01/20/25 09:28 Enoxaparin Sod Inj 60 Mg/0.6 Ml Syringe SC 01/21/25 20:59 Not Given BID KIT Fludrocortisone Acetate 0.1 mg 01/07/25 21:00 01/20/25 09:28 Fludrocortisone Acetate 0.1 Mg Tablet GT 02/06/25 20:59 0.1 mg BID KIT Administration Glucagon 1 mg 01/05/25 19:11 Glucagon Inj 1 Mg Vial IM Q15MIN PRN BG <70, and no IV access Meropenem 1,000 mg/ Sodium 50 mls @ 100 mls/hr 01/16/25 09:30 01/20/25 09:27 Chloride IV 01/26/25 09:00 100 mls/hr BID KIT Administration Lactated Ringer's 1,000 mls @ 100 mls/hr 01/17/25 10:11 01/20/25 10:27 Lactated Ringers IV 02/16/25 10:10 Not Given .Q10H KIT Chlorpromazine HCl 25 mg/ 51 mls @ 102 mls/hr 01/17/25 16:13 01/18/25 08:29 Sodium Chloride IV 02/16/25 16:12 102 mls/hr Q6HR PRN Administration HICCUPS Insulin Human Lispro 0 unit 01/06/25 06:00 01/20/25 11:48 Insulin Lispro (Admelog) 1 Unit/0.01 Ml Unit SC 02/05/25 05:59 Not Given Q6HR [facility] Protocol Ipratropium [place] 0.5 mg 01/07/25 21:00 01/20/25 10:30 Ipratropium Rt 0.5 Mg/ 2.5 Ml Nebu INH 02/06/25 20:59 0.5 mg QIDRT KIT Administration Lansoprazole 30 mg 01/10/25 09:00 01/20/25 09:27 Lansoprazole 30 Mg Tab.Rap. GT 02/07/25 08:59 30 mg QDAY KIT Administration Levalbuterol HCl 1.25 mg 01/07/25 21:00 01/20/25 10:30 Levalbuterol Rt 1.25 Mg/0.5 Ml Nebu INH 02/06/25 20:59 1.25 mg QIDRT KIT Administration Levetiracetam 1,000 mg 01/14/25 13:45 01/20/25 09:27 Levetiracetam Liqd 500 Mg/5 Ml Udc GT 02/13/25 13:44 1,000 mg BID KIT Administration Multivitamins/Minerals 15 ml 01/08/25 09:00 01/20/25 09:28 Multivitamin 15 Ml Udc PO 02/07/25 08:59 15 ml QDAY KIT Administration Ondansetron HCl 4 mg 01/05/25 17:09 Ondansetron Inj 2 Mg/Ml Inj 2 Ml IV 02/04/25 17:08 Q6H PRN NAUSEA OR VOMITING Protocol Pharmacy Consult 1 each 01/16/25 09:00 Vancomycin Pharmacy To Dose 1 Each Each IV 02/15/25 08:59 QDAY PRN consult Phenytoin 600 mg 01/07/25 21:00 01/20/25 09:27 Phenytoin 100 Mg/4 Ml Udc GT 02/06/25 20:59 600 mg BID KIT Administration Sodium Chloride 3 ml 01/07/25 17:55 Sodium Chloride Rt Lala 0.9% 3 Ml Nebu INH 02/06/25 17:54 PRN PRN SOLN Vitamin B Complex/Vit C/Folic Acid 1 tab 01/08/25 09:00 01/20/25 09:27 Vit B12/Vit C/Fa (Nephrovite) Tablet PO 02/07/25 08:59 1 tab QDAY KIT Administration Plan 39-year-old male with past medical history of 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 [employer] #Seizure #Anoxic brain injury due to cardiac arrest Patient is nonverbal at baseline Continues with baclofen, Keppra and phenytoin [facility] #Septic shock Likely multifactorial as patient has multiple bacteria's growing on multiple cultures including Proteus Mirabilis's on sputum and urine, Pseudomonas on trachea, and Klebsiella pneumonia on sputum. Patient had rapid response called yesterday for sepsis alert was called Chest x-ray on 01/15/2025 continue to show significant bibasilar pneumonia CT chest/abdomen/pelvis from 01/05/2025 showed osteomyelitis of right ischium and recommend ultrasound soft tissue right lower lateral abdominal wall to assess soft tissue nodules in the subcutaneous tissue, the largest 22 mm Central line on left IJ placed on 01/16/2025 and should be taken out on 01/21/2025 after patient receives IV antibiotics and has a PICC line inserted. Continue with vancomycin and meropenem 01/26/2025 Respiratory #Chronic tracheostomy tube on mechanical ventilation #Bibasilar pneumonia Chest x-ray on 01/15/2025 show bibasilar pneumonia Continue meropenem and vancomycin until 01/26/2025 GI #Patient has a PEG tube placed #GERD PEG tube dislodged and placed again GI consulted for PEG tube placement again We will continue with lansoprazole #Transaminitis, improving Patient came in initially with AST 814, ALT 1105, ALP 413 Could be due to shock liver in the setting of shock Will continue to monitor for now Renal #Obstructive uropathy # ELDON on CKD, improving Patient has a nephrostomy tube (placed at [facility]) as well as suprapubic catheter Will change patient's suprapubic catheter Creatinine of 1.6 today Renally dose medications Avoid nephrotoxic agents #Hypernatremia Patient sodium went up to 148 today Most likely hemoconcentration Continue free water flushes 100 cc/h Endocrine #Diabetes mellitus type 2 Currently on insulin sliding scale, hypoglycemia protocol in place Hematology #Anemia of chronic disease Patient's hemoglobin was 6.8 will transfuse 1 PRBC No signs of active bleeding ID #septic shock #Pneumonia #Osteomyelitis of right ischium #Pressure ulcer Latest blood cultures drawn on 01/15/2025 but negative Urine culture from 01/15/2025 Received 2 days of micafungin Patient will need PICC line insertion by IR, ordered Will continue with meropenem and vancomycin until 01/26/2025 Consulted general surgery for possible debridement MSK #Right upper extremity DVT Venous Doppler study of right upper extremity showed thrombus involving the right cephalic and right brachial veins We will continue with warm compress and refrain from any IV lines on the right upper extremity Will continue lovenox 60 mg BID Hospital Maintenance: Diet: Tube feeds DVT ppx: lovenox (held due to low Hgb) GI ppx: Lansoprazole IV lines: PIV Lal: suprapubic Code status: Full Dispo: Downgrade to medical floors Case disclosed with Attending Dr. Amada Etienne PGY1 Attending Provider Attestation/Addendum Patient seen and examined with above resident, Ted Etienne MD. I agree with the findings, assessment, and plan of care as documented except for any differences below. Patient continues to be hemodynamically stable with no need for vasopressors. Challenge yesterday off of vasopressors confirmed adequate perfusion with unchanged urine output and lactic acid that showed continued clearance. Patient watched overnight and remains unstable on mechanical ventilation on current antibiotic regimen. Will plan for transfer to medicine parker for ongoing management prior to discharge in the coming days. Family was not at bedside at the time of rounding for me to update them, bedside staff will contact and let them know about the patient's transfer to the medical parker. Overall, the patient continues to have significant risk for further recurrent infections with ventilator associated pneumonia given underlying organisms and now they are multidrug resistance. I did speak to the patient's family previously and they are aware that at some point a organism will arise and will not be amenable to antibiotic treatment and likely due to the patient's demise in setting of sepsis/septic shock. They are appreciative of all care and are aware that he is headed towards this and this was one of the reasons that prompted them to bring the patient back from [place] to our local area in [place] for long-term care. Total critical care time: I personally spent 30 minutes for review of physiologic parameters, directing plan of care throughout the day, coordination of care with other specialties. Patient remains at significant risk for further morbidity and mortality warranting close monitoring and care only available in the intensive care unit. This is exclusive of time spent teaching housestaff performing any separate billable procedures. Patient required critical care services for acute on chronic hypoxic respiratory failure and ventilator associated pneumonia
--- NOTE | 2025-01-20 13:46 | PC.SS ---
Update: Patient Trach/PEG. Patient not receiving pressor support. Vitals are stable. Plan is for patient to obtain PICC line tomorrow. Following IV antibiotics to be ordered until 01-26-25: Vancomycin and Meropenem. Vancomycin can be transitioned to P.O. if needed. Contact precautions in place.
--- NOTE | 2025-01-20 14:52 | PC.SS ---
Patient has been downgraded from ICU.
--- NOTE | 2025-01-20 15:09 | PC.SS ---
BALANCER confirmed with [facility] staff, Carola; that facility can accept patient's return with IV antibiotics 1x a day. Patient must be in possession of PICC line facility cannot facilitate central line. BALANCER updated ICU team.
--- NOTE | 2025-01-20 16:06 | PD.RESPRO ---
Documentation for date of: 01/20/25 Subjective Subjective Interval history: No overnight events. Patient seen examined at bedside, resting comfortably. Patient remains trached and pegged. Unable to provide review of systems. Patient downgraded from ICU to telemetry for further management. Continuing IV antibiotics. Exam Vital Signs Temp Pulse Resp BP Pulse Ox O2 Del Method O2 Flow Rate 96.9 F 94 18 114/66 100 Mechanical Ventilation 45 01/20/25 14:07 01/20/25 15:16 01/20/25 15:16 01/20/25 14:07 01/20/25 15:16 01/20/25 12:00 01/20/25 14:07 FiO2 45 01/20/25 15:16 Narrative Exam PE: Gen: Chronically ill-appearing. HEENT: NCAT, MMM, anicteric conjunctivae. Tracheostomy to vent. CVS: normal S1 and S2. RRR. No M/R/G. Left-sided central line. Resp: CTA B/L. No rhonchi, rales, crackles or wheezing. Poor lung sounds due to low respiratory effort. Abd: soft, non-tender, non-distended. PEG tube. Nephrostomy tube. Suprapubic Lal cath. MSK: Bilateral lower extremity contractures. Dry flaky skin bilateral lower extremities. Neuro: Flexor posturing to noxious stimuli. Eyes open but does not track. Nonverbal. Objective Labs 01/25/25 04:26 01/25/25 05:47 Labs: Laboratory Results - last 24 hr 01/20/25 01/20/25 01/20/25 04:35 06:15 07:15 WBC 9.8 RBC 2.31 L Hgb 6.8 L* 6.8 L* Hct 21.4 L* 21.9 L* MCV 93 MCH 29.4 MCHC 31.8 RDW Std Deviation 47.2 H Plt Count 257 D Neut % (Auto) 64 Lymph % (Auto) 15 [place] % (Auto) 7 Eos % (Auto) 13 H Baso % (Auto) 0 Neut # (Auto) 6.3 Lymph # (Auto) 1.5 [place] # (Auto) 0.7 Eos # (Auto) 1.3 H Baso # (Auto) 0.0 Immature Gran # (Auto) 0.06 H Absolute Nucleated RBC 0.00 Immature Gran % 1 H Nucleated RBC % 0 Sodium 148 H Potassium 3.2 L D Chloride 113 H Carbon Dioxide 26.0 Anion Gap 9 BUN 33 H Creatinine 1.6 H Estim Creat Clear Calc 52.6 L eGFR 55 L BUN/Creatinine Ratio 21 H Glucose 82 D Calculated Osmolality 300 H Calcium 8.3 Corrected Calcium 9.2 Total Bilirubin < 0.2 L AST 21 ALT 45 Alkaline Phosphatase 183 H Total Protein 5.6 L Albumin 2.9 L Globulin 2.7 Albumin/Globulin Ratio 1.1 L Random Vancomycin 16.2 Blood Type O Positive Antibody Screen NEGATIVE Crossmatch See Detail Blood Bank Wristband ID Yes ABG Interpretation ABG results: 01/05/25 19:43 ABG pH 7.39 ABG pCO2 40 ABG pO2 93 ABG HCO3 24 ABG O2 Saturation 98 ABG Base Excess -1 Quality Measures Quality Measures VTE prophylaxis Assessment & Plan Assessment Current Active Medications: Generic Name Dose Route Start Last Admin Trade Name Freq PRN Reason Stop Dose Admin Acetaminophen 650 mg 01/17/25 16:26 01/18/25 18:24 Acetaminophen 325 Mg Tablet PO 02/16/25 16:25 650 mg Q6HR PRN Administration pain and Fever >100.4 Albuterol 2.5 mg 01/07/25 15:17 Albuterol Rt 2.5 Mg/0.5 Ml Nebu INH 02/06/25 14:58 Q6H PRN shortness of breath or wheezing Baclofen 5 mg 01/07/25 22:00 01/20/25 14:01 Baclofen 10 Mg Tablet PO 02/06/25 21:59 5 mg TID KIT Administration Gabapentin 250 Mg/5 0 ea 01/07/25 18:42 01/18/25 08:30 Ml Solution GT 02/06/25 18:41 5 ml Q8HR PRN Administration HICCUPS Dextrose 25 ml 01/05/25 19:11 Dextrose 50%-Water Inj 50 Ml Syringe IV 02/04/25 19:10 Q15MIN PRN BG 50-70 responsive npo pt Dextrose 50 ml 01/05/25 19:11 Dextrose 50%-Water Inj 50 Ml Syringe IV 02/04/25 19:10 Q15MIN PRN BG <50 OR BG <70 & pt unresponsive Enoxaparin Sodium 60 mg 01/07/25 21:00 01/20/25 09:28 Enoxaparin Sod Inj 60 Mg/0.6 Ml Syringe SC 01/21/25 20:59 Not Given BID KIT Fludrocortisone Acetate 0.1 mg 01/07/25 21:00 01/20/25 09:28 Fludrocortisone Acetate 0.1 Mg Tablet GT 02/06/25 20:59 0.1 mg BID KIT Administration Glucagon 1 mg 01/05/25 19:11 Glucagon Inj 1 Mg Vial IM Q15MIN PRN BG <70, and no IV access Meropenem 1,000 mg/ Sodium 50 mls @ 100 mls/hr 01/16/25 09:30 01/20/25 09:27 Chloride IV 01/26/25 09:00 100 mls/hr BID KIT Administration Lactated Ringer's 1,000 mls @ 100 mls/hr 01/17/25 10:11 01/20/25 10:27 Lactated Ringers IV 02/16/25 10:10 Not Given .Q10H KIT Chlorpromazine HCl 25 mg/ 51 mls @ 102 mls/hr 01/17/25 16:13 01/18/25 08:29 Sodium Chloride IV 02/16/25 16:12 102 mls/hr Q6HR PRN Administration HICCUPS Insulin Human Lispro 0 unit 01/06/25 06:00 01/20/25 11:48 Insulin Lispro (Admelog) 1 Unit/0.01 Ml Unit SC 02/05/25 05:59 Not Given Q6HR [facility] Protocol Ipratropium [place] 0.5 mg 01/07/25 21:00 01/20/25 15:12 Ipratropium Rt 0.5 Mg/ 2.5 Ml Nebu INH 02/06/25 20:59 0.5 mg QIDRT KIT Administration Lansoprazole 30 mg 01/10/25 09:00 01/20/25 09:27 Lansoprazole 30 Mg Tab.Rap. GT 02/07/25 08:59 30 mg QDAY KIT Administration Levalbuterol HCl 1.25 mg 01/07/25 21:00 01/20/25 15:12 Levalbuterol Rt 1.25 Mg/0.5 Ml Nebu INH 02/06/25 20:59 1.25 mg QIDRT KIT Administration Levetiracetam 1,000 mg 01/14/25 13:45 01/20/25 09:27 Levetiracetam Liqd 500 Mg/5 Ml Udc GT 02/13/25 13:44 1,000 mg BID KIT Administration Multivitamins/Minerals 15 ml 01/08/25 09:00 01/20/25 09:28 Multivitamin 15 Ml Udc PO 02/07/25 08:59 15 ml QDAY KIT Administration Ondansetron HCl 4 mg 01/05/25 17:09 Ondansetron Inj 2 Mg/Ml Inj 2 Ml IV 02/04/25 17:08 Q6H PRN NAUSEA OR VOMITING Protocol Pharmacy Consult 1 each 01/16/25 09:00 Vancomycin Pharmacy To Dose 1 Each Each IV 02/15/25 08:59 QDAY PRN consult Phenytoin 600 mg 01/07/25 21:00 01/20/25 09:27 Phenytoin 100 Mg/4 Ml Udc GT 02/06/25 20:59 600 mg BID KIT Administration Sodium Chloride 3 ml 01/07/25 17:55 Sodium Chloride Rt [place] 0.9% 3 Ml Nebu INH 02/06/25 17:54 PRN PRN SOLN Vitamin B Complex/Vit C/Folic Acid 1 tab 01/08/25 09:00 01/20/25 09:27 Vit B12/Vit C/Fa (Nephrovite) Tablet PO 02/07/25 08:59 1 tab QDAY KIT Administration Plan 39-year-old male with past medical history of 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 #Septic shock #Chronic tracheostomy tube on mechanical ventilation #Bibasilar pneumonia Likely multifactorial as patient has multiple bacteria's growing on multiple cultures including Proteus Mirabilis's on sputum and urine, Pseudomonas on trachea, and Klebsiella pneumonia on sputum. Patient had rapid response called for sepsis alert, patient upgraded to ICU for septic shock requiring pressors. Chest x-ray on 01/15/2025 continue to show significant bibasilar pneumonia. CT chest/abdomen/pelvis from 01/05/2025 showed osteomyelitis of right ischium and recommend ultrasound soft tissue right lower lateral abdominal wall to assess soft tissue nodules in the subcutaneous tissue, the largest 22 mm. Blood cultures 01/15/2025 negative. Sputum culture 01/15/25 showed Klebsiella and other GNR. General surgery consulted for potential debridement of sacral ulcer. -Continue with vancomycin and meropenem until 01/26/2025 -Monitor daily labs -Follow-up surgery recommendations -Follow-up final speciation for sputum culture -Inhaled albuterol every 6 hours as needed for increased respiratory effort or wheezing #Anemia of chronic disease #Acute anemia Patient's hemoglobin was 6.8. Receiving transfusion 1 PRBC . No signs of active bleeding -Continue to monitor -Posttransfusion H&H #Adrenal insufficiency, suspected Patient takes 0.1 mg fludrocortisone at twice daily at home, suspect due to history of adrenal sufficiency although not clearly documented. Would explain patient's significant hypotension and continued soft blood pressure. -Resume home meds: Fludrocortisone 0.1 mg GT twice daily #Obstructive uropathy #ELDON on CKD, improving Patient has a nephrostomy tube (placed at [facility]) as well as suprapubic catheter Patient had elevated creatinine above baseline, improving with free water flushes. -Renally dose medications -Avoid nephrotoxic agents #Transaminitis, improving Patient came in initially with AST 814, ALT 1105, ALP 413 Could be due to shock liver in the setting of shock -Continue to monitor #Diabetes mellitus type 2 -Currently on insulin sliding scale, hypoglycemia protocol in place #Right upper extremity DVT Venous Doppler study of right upper extremity showed thrombus involving the right cephalic and right brachial veins. We will continue with warm compress and refrain from any IV lines on the right upper extremity. -Lovenox 60 mg BID, currently held #Seizure, patient history #Anoxic brain injury due to cardiac arrest Patient history as stated. Patient is nonverbal at baseline. -Continue with baclofen, Keppra and phenytoin Diet: Tube feeds DVT ppx: lovenox (held due to low Hgb) GI ppx: Lansoprazole Lines: PIV, left-sided central line, suprapubic catheter, right-sided nephrostomy tube, trach Code status: Full Plan of care discussed with senior resident Dr. Owusu PGY?[address] Dale. James Crespo MD PGY?1 Attending Provider Attestation/Addendum 39-year-old male with multiple comorbidities including cardiac arrest with subsequent anoxic brain injury who is dependent on mechanical ventilation via tracheostomy PEG tube placement and obstructive uropathy status post suprapubic catheter and right colostomy and bilateral DVTs who initially presented to the ER on 01/06/2020 for hypotension found to have septic shock secondary to ventilator associated pneumonia and For sacral osteomyelitis subsequently downgraded to [facility] on 01/20/2025. During course of hospitalization, patient received aggressive antibiotic therapy for Klebsiella pneumonia and sacral osteomyelitis. As of now, patient continues to be on ertapenem and vancomycin. In addition, patient also have extensive right upper extremity DVT and currently on Lovenox 60 mg twice daily. Overall plan, awaiting infectious disease input regarding need for IV antibiotic therapy versus oral therapy. Continue close monitoring patient is back on baseline vent setting with FiO2 of 40%.I reviewed above note and agree with findings and plans. I have also personally examined the patient with medicine team and went over assessment and plan with medical team including manager of internal and resident physician.
--- NOTE | 2025-01-20 16:38 | PC.NURSE ---
Hand off report given to Samir FOUNTAIN form Telemetry
[2025-01-20 17:36] LABS: Hematocrit 28.1 % (41.0-53.0); Hemoglobin 8.9 g/dL (13.5-16.0)
[2025-01-20] MEDS: ENOXAPARIN SOD INJ 60 MG/0.6 ML SYRINGE SC (21:24)
--- NOTE | 2025-01-20 22:13 | PD.IMPROG ---
Documentation for date of: 01/20/25 Subjective Subjective Interval history: Newly placed PEG tube checked working quite well Exam Vital Signs Temp Pulse Resp BP Pulse Ox O2 Del Method O2 Flow Rate 97.0 F 96 20 99/57 L 100 Mechanical Ventilation 45 01/20/25 20:00 01/20/25 20:00 01/20/25 20:00 01/20/25 20:00 01/20/25 20:00 01/20/25 20:00 01/20/25 20:00 FiO2 45 01/20/25 20:00 Objective Labs 01/20/25 17:19 01/20/25 04:35 Labs: Laboratory Results - last 24 hr 01/20/25 01/20/25 01/20/25 04:35 06:15 07:15 WBC 9.8 RBC 2.31 L Hgb 6.8 L* 6.8 L* Hct 21.4 L* 21.9 L* MCV 93 MCH 29.4 MCHC 31.8 RDW Std Deviation 47.2 H Plt Count 257 D Neut % (Auto) 64 Lymph % (Auto) 15 [place] % (Auto) 7 Eos % (Auto) 13 H Baso % (Auto) 0 Neut # (Auto) 6.3 Lymph # (Auto) 1.5 [place] # (Auto) 0.7 Eos # (Auto) 1.3 H Baso # (Auto) 0.0 Immature Gran # (Auto) 0.06 H Absolute Nucleated RBC 0.00 Immature Gran % 1 H Nucleated RBC % 0 Sodium 148 H Potassium 3.2 L D Chloride 113 H Carbon Dioxide 26.0 Anion Gap 9 BUN 33 H Creatinine 1.6 H Estim Creat Clear Calc 52.6 L eGFR 55 L BUN/Creatinine Ratio 21 H Glucose 82 D Calculated Osmolality 300 H Calcium 8.3 Corrected Calcium 9.2 Total Bilirubin < 0.2 L AST 21 ALT 45 Alkaline Phosphatase 183 H Total Protein 5.6 L Albumin 2.9 L Globulin 2.7 Albumin/Globulin Ratio 1.1 L Random Vancomycin 16.2 Blood Type O Positive Antibody Screen NEGATIVE Crossmatch See Detail Blood Bank Wristband ID Yes 01/20/25 17:19 WBC RBC Hgb 8.9 L D Hct 28.1 L MCV MCH MCHC RDW Std Deviation Plt Count Neut % (Auto) Lymph % (Auto) [place] % (Auto) Eos % (Auto) Baso % (Auto) Neut # (Auto) Lymph # (Auto) [place] # (Auto) Eos # (Auto) Baso # (Auto) Immature Gran # (Auto) Absolute Nucleated RBC Immature Gran % Nucleated RBC % Sodium Potassium Chloride Carbon Dioxide Anion Gap BUN Creatinine Estim Creat Clear Calc eGFR BUN/Creatinine Ratio Glucose Calculated Osmolality Calcium Corrected Calcium Total Bilirubin AST ALT Alkaline Phosphatase Total Protein Albumin Globulin Albumin/Globulin Ratio Random Vancomycin Blood Type Antibody Screen Crossmatch Blood Bank Wristband ID Impressions Impression: PEG tube evaluation regarding placement of a new PEG tube Continue enteral hyperalimentation ABG Interpretation ABG results: 01/05/25 19:43 ABG pH 7.39 ABG pCO2 40 ABG pO2 93 ABG HCO3 24 ABG O2 Saturation 98 ABG Base Excess -1 Assessment & Plan A&P Narrative # PEG tube evaluation plan Consent obtained for removal of the existing Lal catheter with placement of a new [place] 20 [place] tube at the bedside we will proceed with the procedure Thank you for the opportunity participate in care of this patient other medical problems include # 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
[2025-01-21] VITALS (15 sets, daily range): BP systolic 87–124; BP diastolic 57–72; PULSE 91–106; RESP 16–28; TEMP 36.1–36.6; O2SAT 96–100
[2025-01-21] MEDS: BACLOFEN 10 MG TABLET 5 MG PO ×3 (05:34→21:32)
[2025-01-21 05:46] LABS: Basophils # (Auto) 0.1 Thou/mm3 (0.0-0.2); Basophils % (Auto) 1 % (0-2.5); Eosinophils # (Auto) 1.5 Thou/mm3 (0.0-0.5); Eosinophils % (Auto) 14 % (0-10); Hematocrit 27.3 % (41.0-53.0); Immature Granulocytes % (Auto) 2 % (0-0); Immature Granulocytes Auto 0.16 Thou/mm3 (0.00-0.00); Lymphocytes # (Auto) 1.7 Thou/mm3 (1.0-4.8); Lymphocytes % (Auto) 16 % (10-50); Mean Corpuscular HGB Conc 31.9 g/dl (31.0-37.0); Mean Corpuscular Hemoglobin 29.7 pg (25.0-35.0); Mean Corpuscular Volume 93 fL (80-100); Monocytes # (Auto) 0.7 Thou/mm3 (0.0-0.8); Monocytes % (Auto) 6 % (0-12); Neutrophils # (Auto) 6.5 Thou/mm3 (1.8-7.7); Neutrophils % (Auto) 61 % (37-80); Nucleated Red Blood Cell % 0 /100 WBC (0); Platelet Count 272 Thou/mm3 (140-440); RDW Standard Deviation 47.9 fL (35.1-43.9); Red Blood Count 2.93 Miln/mm3 (4.50-5.90); White Blood Count 10.6 Thou/mm3 (3.8-10.6)
[2025-01-21 05:49] LABS: Hemoglobin 8.7 g/dL (13.5-16.0)
[2025-01-21 06:16] LABS: Alanine Aminotransferase 39 U/L (10-49); Albumin, Serum 3.1 gm/dL (3.5-5.0); Albumin/Globulin Ratio 1.1 (1.2-2.2); Alkaline Phosphatase 193 U/L (46-116); Anion Gap 7 (7-16); Aspartate Amino Transferase 18 U/L (0-34); BUN/Creatinine Ratio 19 Ratio (12-20); Bilirubin,Total < 0.2 mg/dL (0.3-1.2); Blood Urea Nitrogen 28 mg/dL (9-23); Calcium 8.5 mg/dL (8.3-10.6); Calcium (Corrected) 9.2 mg/dL (8.5-10.1); Carbon Dioxide 26.7 mMol/L (20.0-31.0); Chloride 110 mMol/L (98-107); Creatinine (Component) 1.5 mg/dL (0.6-1.3); Estimated Creatinine Clearance 87.6 mL/min (>60); Globulin 2.8 gm/dL (2.3-3.5); Glucose 121 mg/dL (74-106); Osmolality,Calculated 293 (275-295); Potassium 3.6 mMol/L (3.4-5.1); Sodium 144 mMol/L (136-145); Total Protein 5.9 gm/dL (5.7-8.2); Vancomycin,Random 16.9 mcg/mL; eGFR 60 See Note
[2025-01-21] MEDS: LEVALBUTEROL RT 1.25 MG/0.5 ML NEBU INH (06:29)
[2025-01-21] MEDS: IPRATROPIUM RT 0.5 MG/ 2.5 ML NEBU INH (06:29)
[2025-01-21] MEDS: Silvasorb Gel 45 ML TUBE TOP (09:00)
[2025-01-21] MEDS: MULTIVITAMIN 15 ML UDC PO (10:14)
[2025-01-21] MEDS: PHENYTOIN 100 MG/4 ML UDC 600 MG GT ×2 (10:14→21:31)
--- NOTE | 2025-01-21 10:14 | PC.DIETICIAN ---
Nutrition prescription (updated, new formula) Jevity 1.5 at 65 ml/hr x 20 hrs via PEG tube by pump (goal). If no IV fluids, water flushes of 50 ml/hr x 20 hrs (or per MD). -Hold TF for one hour before and after phenytoin BID administration-
[2025-01-21] MEDS: levETIRAcetam LIQD 500 MG/5 ML UDC 1000 MG GT ×2 (10:15→21:31)
[2025-01-21] MEDS: LANSOPRAZOLE 30 MG TAB.RAP.DR GT (10:15)
[2025-01-21] MEDS: MEROPENEM INJ 1,000 MG in SODIUM CHLORIDE 0.9% (Popper) 50 ML 100 MG IV ×2 (10:15→21:32)
[2025-01-21] MEDS: ENOXAPARIN SOD INJ 60 MG/0.6 ML SYRINGE SC (10:15)
[2025-01-21] MEDS: VIT B12/Vit C/FA (Nephrovite) TABLET 1 TAB PO (10:15)
[2025-01-21] MEDS: FLUDROCORTISONE ACETATE 0.1 MG TABLET GT ×2 (10:16→21:32)
[2025-01-21] MEDS: VANCOMYCIN/NS 750 MG IVPB 750 MG/150 ML BAG 120 MG IV (10:47)
--- NOTE | 2025-01-21 13:23 | ESPR_ITS ---
<Statement entered by Bushra Owusu MD - 01/21/25 14:00> 39-year-old male with past medical history of anoxic brain injury secondary to cardiac arrest, status post tracheostomy/mechanical ventilation, PEG tube placement, suprapubic catheter placement, right nephrostomy tube secondary to obstructive uropathy and right upper extremity DVT with admitted to hospital with septic shock secondary due to multiple infectios sources contributing to this clinical picture. Patient downgraded to telemetry yesterday, currently hemodynamically stable, with MAP is acceptable at 55, patient is on meropenem and vancomycin until 01/26/2025, plan was to place PICC line today, however PICC line placement was unsuccessful due to UE DVTs. Patient currently does have L IJ , will follow-up with infectious disease doctor as patient will need to complete the antibiotic course, we will discuss possibility of discharging patient to LTAC. Pending final recs from ID. I discussed with and supervised the technical support internship physician who took care of this patient. I personally saw and examined the patient and discussed the assessment and plan with the entire medicine team, including my attending , I agree with the assessment and plan as documented below Bushra Owusu M.D. PGY-2 Disclaimer: Despite multiple revisions, due to the dictation software being used, the document bellow may not be free of grammatical errors including phonetic/typographic errors. However, this does not deter from our commitment to providing health care in the patient's best interest in mind. Documentation for date of: 01/21/25 Subjective Subjective Interval history: No overnight events. Patient seen examined at bedside, resting comfortably. Patient remains poorly responsive at baseline. Continue IV Fink and meropenem, pending ID consult. Resumed Lovenox, monitor closely for decrease in hemoglobin. Exam Vital Signs Temp Pulse Resp BP Pulse Ox O2 Del Method O2 Flow Rate 97.4 F 99 16 113/72 99 Mechanical Ventilation 45 01/21/25 12:00 01/21/25 12:00 01/21/25 12:00 01/21/25 12:00 01/21/25 12:00 01/21/25 12:00 01/21/25 12:00 FiO2 45 01/21/25 12:00 Narrative Exam PE: Gen: Chronically ill-appearing. HEENT: NCAT, MMM, anicteric conjunctivae. Tracheostomy to vent. CVS: normal S1 and S2. RRR. No M/R/G. Left-sided central line. Resp: CTA B/L. No rhonchi, rales, crackles or wheezing. Poor lung sounds due to low respiratory effort. Abd: soft, non-tender, non-distended. PEG tube. Nephrostomy tube. Suprapubic Lal cath. MSK: Bilateral lower extremity contractures. Dry flaky skin bilateral lower extremities. Neuro: Flexor posturing to noxious stimuli. Eyes open but does not track. Nonverbal. Objective Labs 01/25/25 04:26 01/25/25 05:47 Labs: Laboratory Results - last 24 hr 01/20/25 01/20/25 01/21/25 07:15 17:19 04:25 WBC 10.6 RBC 2.93 L Hgb 8.9 L D 8.7 L Hct 28.1 L 27.3 L MCV 93 MCH 29.7 MCHC 31.9 RDW Std Deviation 47.9 H Plt Count 272 Neut % (Auto) 61 Lymph % (Auto) 16 [place] % (Auto) 6 Eos % (Auto) 14 H Baso % (Auto) 1 Neut # (Auto) 6.5 Lymph # (Auto) 1.7 [place] # (Auto) 0.7 Eos # (Auto) 1.5 H Baso # (Auto) 0.1 Immature Gran # (Auto) 0.16 H Absolute Nucleated RBC 0.00 Immature Gran % 2 H Nucleated RBC % 0 Sodium 144 Potassium 3.6 Chloride 110 H Carbon Dioxide 26.7 Anion Gap 7 BUN 28 H Creatinine 1.5 H Estim Creat Clear Calc 87.6 eGFR 60 BUN/Creatinine Ratio 19 Glucose 121 H Calculated Osmolality 293 Calcium 8.5 Corrected Calcium 9.2 Total Bilirubin < 0.2 L AST 18 ALT 39 Alkaline Phosphatase 193 H Total Protein 5.9 Albumin 3.1 L Globulin 2.8 Albumin/Globulin Ratio 1.1 L Random Vancomycin 16.9 Blood Type O Positive Antibody Screen NEGATIVE Crossmatch See Detail Blood Bank Wristband ID Yes ABG Interpretation ABG results: 01/05/25 19:43 ABG pH 7.39 ABG pCO2 40 ABG pO2 93 ABG HCO3 24 ABG O2 Saturation 98 ABG Base Excess -1 Quality Measures Quality Measures VTE prophylaxis Assessment & Plan Assessment Current Active Medications: Generic Name Dose Route Start Last Admin Trade Name eDvanteq PRN Reason Stop Dose Admin Acetaminophen 650 mg 01/17/25 16:26 01/18/25 18:24 Acetaminophen 325 Mg Tablet PO 02/16/25 16:25 650 mg Q6HR PRN Administration pain and Fever >100.4 Albuterol 2.5 mg 01/07/25 15:17 Albuterol Rt 2.5 Mg/0.5 Ml Nebu INH 02/06/25 14:58 Q6H PRN shortness of breath or wheezing Baclofen 5 mg 01/07/25 22:00 01/21/25 05:34 Baclofen 10 Mg Tablet PO 02/06/25 21:59 5 mg TID KIT Administration Gabapentin 250 Mg/5 0 ea 01/07/25 18:42 01/18/25 08:30 Ml Solution GT 02/06/25 18:41 5 ml Q8HR PRN Administration HICCUPS Dextrose 25 ml 01/05/25 19:11 Dextrose 50%-Water Inj 50 Ml Syringe IV 02/04/25 19:10 Q15MIN PRN BG 50-70 responsive npo pt Dextrose 50 ml 01/05/25 19:11 Dextrose 50%-Water Inj 50 Ml Syringe IV 02/04/25 19:10 Q15MIN PRN BG <50 OR BG <70 & pt unresponsive Enoxaparin Sodium 60 mg 01/07/25 21:00 01/21/25 10:15 Enoxaparin Sod Inj 60 Mg/0.6 Ml Syringe SC 01/21/25 20:59 60 mg BID KIT Administration Fludrocortisone Acetate 0.1 mg 01/07/25 21:00 01/21/25 10:16 Fludrocortisone Acetate 0.1 Mg Tablet GT 02/06/25 20:59 0.1 mg BID KIT Administration Glucagon 1 mg 01/05/25 19:11 Glucagon Inj 1 Mg Vial IM Q15MIN PRN BG <70, and no IV access Meropenem 1,000 mg/ Sodium 50 mls @ 100 mls/hr 01/16/25 09:30 01/21/25 10:15 Chloride IV 01/26/25 09:00 100 mls/hr BID KIT Administration Chlorpromazine HCl 25 mg/ 51 mls @ 102 mls/hr 01/17/25 16:13 01/18/25 08:29 Sodium Chloride IV 02/16/25 16:12 102 mls/hr Q6HR PRN Administration HICCUPS Insulin Human Lispro 0 unit 01/06/25 06:00 01/21/25 05:35 Insulin Lispro (Admelog) 1 Unit/0.01 Ml Unit SC 02/05/25 05:59 Not Given Q6HR KIT Protocol Ipratropium [place] 0.5 mg 01/07/25 21:00 01/21/25 06:29 Ipratropium Rt 0.5 Mg/ 2.5 Ml Nebu INH 02/06/25 20:59 0.5 mg QIDRT KIT Administration Lansoprazole 30 mg 01/10/25 09:00 01/21/25 10:15 Lansoprazole 30 Mg Tab.Rap.Dr GT 02/07/25 08:59 30 mg QDAY KIT Administration Levalbuterol HCl 1.25 mg 01/07/25 21:00 01/21/25 06:29 Levalbuterol Rt 1.25 Mg/0.5 Ml Nebu INH 02/06/25 20:59 1.25 mg QIDRT KIT Administration Levetiracetam 1,000 mg 01/14/25 13:45 01/21/25 10:15 Levetiracetam Liqd 500 Mg/5 Ml Udc GT 02/13/25 13:44 1,000 mg BID KIT Administration Midodrine 10 mg 01/21/25 14:00 Midodrine 5 Mg Tablet PO 02/20/25 13:59 TID KIT Multivitamins/Minerals 15 ml 01/08/25 09:00 01/21/25 10:14 Multivitamin 15 Ml Udc PO 02/07/25 08:59 15 ml QDAY KIT Administration Ondansetron HCl 4 mg 01/05/25 17:09 Ondansetron Inj 2 Mg/Ml Inj 2 Ml IV 02/04/25 17:08 Q6H PRN NAUSEA OR VOMITING Protocol Pharmacy Consult 1 each 01/16/25 09:00 Vancomycin Pharmacy To Dose 1 Each Each IV 02/15/25 08:59 QDAY PRN consult Phenytoin 600 mg 01/07/25 21:00 01/21/25 10:14 Phenytoin 100 Mg/4 Ml Udc GT 02/06/25 20:59 600 mg BID KIT Administration Sodium Chloride 3 ml 01/07/25 17:55 Sodium Chloride Rt Lala 0.9% 3 Ml Nebu INH 02/06/25 17:54 PRN PRN SOLN Vitamin B Complex/Vit C/Folic Acid 1 tab 01/08/25 09:00 01/21/25 10:15 Vit B12/Vit C/Fa (Nephrovite) Tablet PO 02/07/25 08:59 1 tab QDAY KIT Administration Plan 39-year-old male with past medical history of 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 #Septic shock #Chronic tracheostomy tube on mechanical ventilation #Bibasilar pneumonia Likely multifactorial as patient has multiple bacteria's growing on multiple cultures including Proteus Mirabilis's on sputum and urine, Pseudomonas on trachea, and Klebsiella pneumonia on sputum. Patient had rapid response called for sepsis alert, patient upgraded to ICU for septic shock requiring pressors. Chest x-ray on 01/15/2025 continue to show significant bibasilar pneumonia. CT chest/abdomen/pelvis from 01/05/2025 showed osteomyelitis of right ischium and recommend ultrasound soft tissue right lower lateral abdominal wall to assess soft tissue nodules in the subcutaneous tissue, the largest 22 mm. Blood cultures 01/15/2025 negative. Sputum culture 01/15/25 showed Klebsiella and other GNR. General surgery consulted for potential debridement of sacral ulcer. -Continue with vancomycin and meropenem until 01/26/2025 -Monitor daily labs -Follow-up surgery recommendations -Follow-up final speciation for sputum culture -Inhaled albuterol every 6 hours as needed for increased respiratory effort or wheezing - ID consulted, appreciate recommendations #Anemia of chronic disease #Acute anemia Patient's hemoglobin was 6.8. Receiving transfusion 1 PRBC . No signs of active bleeding. Posttransfusion H&H improved, hemoglobin currently stable. -Continue to monitor #Adrenal insufficiency, suspected Patient takes 0.1 mg fludrocortisone at twice daily at home, suspect due to history of adrenal sufficiency although not clearly documented. Would explain patient's significant hypotension and continued soft blood pressure. -Resume home meds: Fludrocortisone 0.1 mg GT twice daily #Obstructive uropathy #ELDON on CKD, improving Patient has a nephrostomy tube (placed at [facility]) as well as suprapubic catheter Patient had elevated creatinine above baseline, improving with free water flushes. -Renally dose medications -Avoid nephrotoxic agents #Transaminitis, improving Patient came in initially with AST 814, ALT 1105, ALP 413 Could be due to shock liver in the setting of shock -Continue to monitor #Diabetes mellitus type 2 -Currently on insulin sliding scale, hypoglycemia protocol in place #Right upper extremity DVT Venous Doppler study of right upper extremity showed thrombus involving the right cephalic and right brachial veins. We will continue with warm compress and refrain from any IV lines on the right upper extremity. -Lovenox 60 mg BID #Seizure, patient history #Anoxic brain injury due to cardiac arrest Patient history as stated. Patient is nonverbal at baseline. -Continue with baclofen, Keppra and phenytoin Diet: Tube feeds DVT ppx: Lovenox GI ppx: Lansoprazole Lines: PIV, left-sided central line, suprapubic catheter, right-sided nephrostomy tube, trach Code status: Full Plan of care discussed with senior resident Dr. Owusu PGY?[address] Dale. James Crespo MD PGY?1 Attending Provider Attestation/Addendum 39-year-old male with multiple comorbidities including cardiac arrest with subsequent anoxic brain injury who is dependent on mechanical ventilation via tracheostomy PEG tube placement and obstructive uropathy status post suprapubic catheter and right colostomy and bilateral DVTs who initially presented to the ER on 01/06/2020 for hypotension found to have septic shock secondary to ventilator associated pneumonia and For sacral osteomyelitis subsequently downgraded to MedSurg on 01/20/2025. During course of hospitalization, patient received aggressive antibiotic therapy for Klebsiella pneumonia and sacral osteomyelitis. As of now, patient continues to be on ertapenem and vancomycin. In addition, patient also have extensive right upper extremity DVT and currently on Lovenox 60 mg twice daily. Overall plan, awaiting infectious disease input regarding need for IV antibiotic therapy versus oral therapy. Continue close monitoring patient is back on baseline vent setting with FiO2 of 40%.I reviewed above note and agree with findings and plans. I have also personally examined the patient with medicine team and went over assessment and plan with medical team including technical support internship and resident physician.
[2025-01-21] MEDS: MIDODRINE 5 MG TABLET 10 MG PO ×2 (14:33→21:32)
[2025-01-21 17:34] LABS: Hematocrit 28.2 % (41.0-53.0)
--- NOTE | 2025-01-21 19:19 | ESPR_ITS ---
Documentation for date of: 01/21/25 Subjective Subjective Interval history: PEG site checked Minimal drainage PEG tube working fine Exam Vital Signs Temp Pulse Resp BP Pulse Ox O2 Del Method O2 Flow Rate 97.1 F 106 H 17 124/69 98 Mechanical Ventilation 45 01/21/25 16:00 01/21/25 16:00 01/21/25 16:00 01/21/25 16:00 01/21/25 16:00 01/21/25 16:00 01/21/25 16:00 FiO2 45 01/21/25 16:00 Objective Labs 01/21/25 17:07 01/21/25 04:25 Labs: Laboratory Results - last 24 hr 01/21/25 01/21/25 04:25 17:07 WBC 10.6 RBC 2.93 L Hgb 8.7 L 9.0 L Hct 27.3 L 28.2 L MCV 93 MCH 29.7 MCHC 31.9 RDW Std Deviation 47.9 H Plt Count 272 Neut % (Auto) 61 Lymph % (Auto) 16 [place] % (Auto) 6 Eos % (Auto) 14 H Baso % (Auto) 1 Neut # (Auto) 6.5 Lymph # (Auto) 1.7 [place] # (Auto) 0.7 Eos # (Auto) 1.5 H Baso # (Auto) 0.1 Immature Gran # (Auto) 0.16 H Absolute Nucleated RBC 0.00 Immature Gran % 2 H Nucleated RBC % 0 Sodium 144 Potassium 3.6 Chloride 110 H Carbon Dioxide 26.7 Anion Gap 7 BUN 28 H Creatinine 1.5 H Estim Creat Clear Calc 87.6 eGFR 60 BUN/Creatinine Ratio 19 Glucose 121 H Calculated Osmolality 293 Calcium 8.5 Corrected Calcium 9.2 Total Bilirubin < 0.2 L AST 18 ALT 39 Alkaline Phosphatase 193 H Total Protein 5.9 Albumin 3.1 L Globulin 2.8 Albumin/Globulin Ratio 1.1 L Random Vancomycin 16.9 Impressions Impression: Failure to thrive Newly placed PEG tube working well ABG Interpretation ABG results: 01/05/25 19:43 ABG pH 7.39 ABG pCO2 40 ABG pO2 93 ABG HCO3 24 ABG O2 Saturation 98 ABG Base Excess -1 Assessment & Plan A&P Narrative # PEG tube evaluation plan Consent obtained for removal of the existing Lal catheter with placement of a new [place] 20 CONNOR tube at the bedside we will proceed with the procedure Thank you for the opportunity participate in care of this patient other medical problems include # 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
[2025-01-22] VITALS (15 sets, daily range): BP systolic 99–119; BP diastolic 64–85; PULSE 79–112; RESP 16–23; TEMP 35.9–36.6; O2SAT 95–100; BMI 22.1
[2025-01-22] MEDS: MEROPENEM INJ 1,000 MG in SODIUM CHLORIDE 0.9% (Popper) 50 ML 100 MG IV ×3 (05:11→21:20)
[2025-01-22] MEDS: BACLOFEN 10 MG TABLET 5 MG PO ×3 (05:12→21:23)
[2025-01-22] MEDS: MIDODRINE 5 MG TABLET 10 MG PO ×3 (05:12→21:23)
[2025-01-22 05:42] LABS: Basophils # (Auto) 0.1 Thou/mm3 (0.0-0.2); Basophils % (Auto) 1 % (0-2.5); Eosinophils # (Auto) 1.7 Thou/mm3 (0.0-0.5); Eosinophils % (Auto) 16 % (0-10); Hematocrit 29.8 % (41.0-53.0); Hemoglobin 9.5 g/dL (13.5-16.0); Immature Granulocytes % (Auto) 2 % (0-0); Immature Granulocytes Auto 0.18 Thou/mm3 (0.00-0.00); Lymphocytes # (Auto) 1.5 Thou/mm3 (1.0-4.8); Lymphocytes % (Auto) 14 % (10-50); Mean Corpuscular HGB Conc 31.9 g/dl (31.0-37.0); Mean Corpuscular Hemoglobin 29.8 pg (25.0-35.0); Mean Corpuscular Volume 93 fL (80-100); Monocytes # (Auto) 0.7 Thou/mm3 (0.0-0.8); Monocytes % (Auto) 6 % (0-12); Neutrophils # (Auto) 6.7 Thou/mm3 (1.8-7.7); Neutrophils % (Auto) 62 % (37-80); Nucleated Red Blood Cell % 0 /100 WBC (0); Platelet Count 385 Thou/mm3 (140-440); RDW Standard Deviation 48.2 fL (35.1-43.9); Red Blood Count 3.19 Miln/mm3 (4.50-5.90); White Blood Count 10.9 Thou/mm3 (3.8-10.6)
[2025-01-22 06:06] LABS: Alanine Aminotransferase 32 U/L (10-49); Albumin, Serum 3.3 gm/dL (3.5-5.0); Albumin/Globulin Ratio 1.1 (1.2-2.2); Alkaline Phosphatase 200 U/L (46-116); Anion Gap 8 (7-16); Aspartate Amino Transferase 16 U/L (0-34); BUN/Creatinine Ratio 19 Ratio (12-20); Bilirubin,Total < 0.2 mg/dL (0.3-1.2); Blood Urea Nitrogen 26 mg/dL (9-23); Calcium 8.8 mg/dL (8.3-10.6); Calcium (Corrected) 9.4 mg/dL (8.5-10.1); Carbon Dioxide 26.6 mMol/L (20.0-31.0); Chloride 107 mMol/L (98-107); Creatinine (Component) 1.4 mg/dL (0.6-1.3); Estimated Creatinine Clearance 93.8 mL/min (>60); Globulin 3.1 gm/dL (2.3-3.5); Glucose 120 mg/dL (74-106); Osmolality,Calculated 288 (275-295); Potassium 3.9 mMol/L (3.4-5.1); Sodium 142 mMol/L (136-145); Total Protein 6.4 gm/dL (5.7-8.2); Vancomycin,Random 21.8 mcg/mL; eGFR > 60 See Note
[2025-01-22] MEDS: IPRATROPIUM RT 0.5 MG/ 2.5 ML NEBU INH ×4 (06:51→22:51)
[2025-01-22] MEDS: LEVALBUTEROL RT 1.25 MG/0.5 ML NEBU INH ×3 (06:51→22:51)
[2025-01-22] MEDS: levETIRAcetam LIQD 500 MG/5 ML UDC 1000 MG GT ×2 (09:15→21:20)
[2025-01-22] MEDS: PHENYTOIN 100 MG/4 ML UDC 600 MG GT ×2 (09:15→21:20)
[2025-01-22] MEDS: FLUDROCORTISONE ACETATE 0.1 MG TABLET GT ×2 (09:15→21:23)
[2025-01-22] MEDS: LANSOPRAZOLE 30 MG TAB.RAP.DR GT (09:15)
[2025-01-22] MEDS: MULTIVITAMIN 15 ML UDC PO (09:15)
[2025-01-22] MEDS: VIT B12/Vit C/FA (Nephrovite) TABLET 1 TAB PO (09:15)
[2025-01-22] MEDS: Silvasorb Gel 45 ML TUBE TOP (09:27)
--- NOTE | 2025-01-22 10:41 | PC.SS ---
rounding note; Pending ID's recs. Patient will complete i.v. antibiotics course by the .
--- NOTE | 2025-01-22 12:35 | CHAP ---
Patient was visited by the Spiritual Care Volunteer who prayed for them. (Volunteer was in the hospital from 11:00-12:35.)
--- NOTE | 2025-01-22 14:53 | ESPR_ITS ---
<Statement entered by Bushra Owusu MD - 01/22/25 15:03> Patient seen and examined at bedside. No acute overnight events. CBC revealed improvement of leukocytosis, currently WBC of 10.9, hemoglobin stable at 9.5 hematocrit 29, patient had adequate urine output. Blood pressure is well- controlled, currently he is on midodrine 10 3 times daily, received IV meropenem, the plan was initially to continue meropenem until 07/28/2025, however pending Dr Rainey final recommendations on discharge. Patient will be discharged to LTAC if needs to be on meropenem for additional 4 more days, however if ID recommends p.o., patient can be discharged back to SNF with p.o. medication to complete the course of antibiotics. I discussed with and supervised the internet programmer physician who took care of this patient. I personally saw and examined the patient and discussed the assessment and plan with the entire medicine team, including my attending , I agree with the assessment and plan as documented below Bushra Owusu M.D. PGY-2 Disclaimer: Despite multiple revisions, due to the dictation software being used, the document bellow may not be free of grammatical errors including phonetic/typographic errors. However, this does not deter from our commitment to providing health care in the patient's best interest in mind. Documentation for date of: 01/22/25 Subjective Subjective Interval history: No overnight events. Patient seen examined at bedside, no acute distress. No significant changes from yesterday. Pending ID recommendations for long-term antibiotic use. Will continue current management. Exam Vital Signs Temp Pulse Resp BP Pulse Ox O2 Del Method O2 Flow Rate 97.1 F 93 16 119/84 99 Mechanical Ventilation 45 01/22/25 12:00 01/22/25 13:54 01/22/25 12:00 01/22/25 13:54 01/22/25 13:19 01/22/25 12:00 01/22/25 12:00 FiO2 440 01/22/25 13:19 Narrative Exam PE: Gen: Chronically ill-appearing. HEENT: NCAT, MMM, anicteric conjunctivae. Tracheostomy to vent. CVS: normal S1 and S2. RRR. No M/R/G. Left-sided central line. Resp: CTA B/L. No rhonchi, rales, crackles or wheezing. Poor lung sounds due to low respiratory effort. Abd: soft, non-tender, non-distended. PEG tube. Nephrostomy tube. Suprapubic Lal cath. MSK: Sacral ulcer with granulation tissue, bandaged. Bilateral lower extremity contractures. Dry flaky skin bilateral lower extremities. Neuro: Flexor posturing to noxious stimuli. Eyes open but does not track. Nonverbal. Objective Labs 01/25/25 04:26 01/25/25 05:47 Labs: Laboratory Results - last 24 hr 01/21/25 01/22/25 17:07 05:06 WBC 10.9 H RBC 3.19 L Hgb 9.0 L 9.5 L Hct 28.2 L 29.8 L MCV 93 MCH 29.8 MCHC 31.9 RDW Std Deviation 48.2 H Plt Count 385 D Neut % (Auto) 62 Lymph % (Auto) 14 [place] % (Auto) 6 Eos % (Auto) 16 H Baso % (Auto) 1 Neut # (Auto) 6.7 Lymph # (Auto) 1.5 [place] # (Auto) 0.7 Eos # (Auto) 1.7 H Baso # (Auto) 0.1 Immature Gran # (Auto) 0.18 H Absolute Nucleated RBC 0.00 Immature Gran % 2 H Nucleated RBC % 0 Sodium 142 Potassium 3.9 Chloride 107 Carbon Dioxide 26.6 Anion Gap 8 BUN 26 H Creatinine 1.4 H Estim Creat Clear Calc 93.8 eGFR > 60 BUN/Creatinine Ratio 19 Glucose 120 H Calculated Osmolality 288 Calcium 8.8 Corrected Calcium 9.4 Total Bilirubin < 0.2 L AST 16 ALT 32 Alkaline Phosphatase 200 H Total Protein 6.4 Albumin 3.3 L Globulin 3.1 Albumin/Globulin Ratio 1.1 L Random Vancomycin 21.8 ABG Interpretation ABG results: 01/05/25 19:43 ABG pH 7.39 ABG pCO2 40 ABG pO2 93 ABG HCO3 24 ABG O2 Saturation 98 ABG Base Excess -1 Quality Measures Quality Measures VTE prophylaxis Assessment & Plan Assessment Current Active Medications: Generic Name Dose Route Start Last Admin Trade Name Freq PRN Reason Stop Dose Admin Acetaminophen 650 mg 01/17/25 16:26 01/18/25 18:24 Acetaminophen 325 Mg Tablet PO 02/16/25 16:25 650 mg Q6HR PRN Administration pain and Fever >100.4 Albuterol 2.5 mg 01/07/25 15:17 Albuterol Rt 2.5 Mg/0.5 Ml Nebu INH 02/06/25 14:58 Q6H PRN shortness of breath or wheezing Baclofen 5 mg 01/07/25 22:00 01/22/25 13:54 Baclofen 10 Mg Tablet PO 02/06/25 21:59 5 mg TID KIT Administration Gabapentin 250 Mg/5 0 ea 01/07/25 18:42 01/18/25 08:30 Ml Solution GT 02/06/25 18:41 5 ml Q8HR PRN Administration HICCUPS Dextrose 25 ml 01/05/25 19:11 Dextrose 50%-Water Inj 50 Ml Syringe IV 02/04/25 19:10 Q15MIN PRN BG 50-70 responsive npo pt Dextrose 50 ml 01/05/25 19:11 Dextrose 50%-Water Inj 50 Ml Syringe IV 02/04/25 19:10 Q15MIN PRN BG <50 OR BG <70 & pt unresponsive Fludrocortisone Acetate 0.1 mg 01/07/25 21:00 01/22/25 09:15 Fludrocortisone Acetate 0.1 Mg Tablet GT 02/06/25 20:59 0.1 mg BID KIT Administration Glucagon 1 mg 01/05/25 19:11 Glucagon Inj 1 Mg Vial IM Q15MIN PRN BG <70, and no IV access Chlorpromazine HCl 25 mg/ 51 mls @ 102 mls/hr 01/17/25 16:13 01/18/25 08:29 Sodium Chloride IV 02/16/25 16:12 102 mls/hr Q6HR PRN Administration HICCUPS Meropenem 1,000 mg/ Sodium 50 mls @ 100 mls/hr 01/21/25 22:00 01/22/25 13:53 Chloride IV 01/26/25 09:00 100 mls/hr Q8HR KIT Administration Insulin Human Lispro 0 unit 01/06/25 06:00 01/22/25 12:36 Insulin Lispro (Admelog) 1 Unit/0.01 Ml Unit SC 02/05/25 05:59 Not Given Q6HR [facility] Protocol Ipratropium [place] 0.5 mg 01/07/25 21:00 01/22/25 06:51 Ipratropium Rt 0.5 Mg/ 2.5 Ml Nebu INH 02/06/25 20:59 0.5 mg QIDRT KIT Administration Lansoprazole 30 mg 01/10/25 09:00 01/22/25 09:15 Lansoprazole 30 Mg Tab.Nancy. GT 02/07/25 08:59 30 mg QDAY KIT Administration Levalbuterol HCl 1.25 mg 01/07/25 21:00 01/22/25 06:51 Levalbuterol Rt 1.25 Mg/0.5 Ml Nebu INH 02/06/25 20:59 1.25 mg QIDRT KIT Administration Levetiracetam 1,000 mg 01/14/25 13:45 01/22/25 09:15 Levetiracetam Liqd 500 Mg/5 Ml Udc GT 02/13/25 13:44 1,000 mg BID KIT Administration Midodrine 10 mg 01/21/25 14:00 01/22/25 13:54 Midodrine 5 Mg Tablet PO 02/20/25 13:59 10 mg TID KIT Administration Multivitamins/Minerals 15 ml 01/08/25 09:00 01/22/25 09:15 Multivitamin 15 Ml Udc PO 02/07/25 08:59 15 ml QDAY KIT Administration Ondansetron HCl 4 mg 01/05/25 17:09 Ondansetron Inj 2 Mg/Ml Inj 2 Ml IV 02/04/25 17:08 Q6H PRN NAUSEA OR VOMITING Protocol Pharmacy Consult 1 each 01/16/25 09:00 Vancomycin Pharmacy To Dose 1 Each Each IV 02/15/25 08:59 QDAY PRN consult Phenytoin 600 mg 01/07/25 21:00 01/22/25 09:15 Phenytoin 100 Mg/4 Ml Udc GT 02/06/25 20:59 600 mg BID KIT Administration Sodium Chloride 3 ml 01/07/25 17:55 Sodium Chloride Rt [place] 0.9% 3 Ml Nebu INH 02/06/25 17:54 PRN PRN SOLN Vitamin B Complex/Vit C/Folic Acid 1 tab 01/08/25 09:00 01/22/25 09:15 Vit B12/Vit C/Fa (Nephrovite) Tablet PO 02/07/25 08:59 1 tab QDAY KIT Administration Plan 39-year-old male with past medical history of 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 #Septic shock, resolved #Chronic tracheostomy tube on mechanical ventilation #Bibasilar pneumonia Likely multifactorial as patient has multiple bacteria's growing on multiple cultures including Proteus Mirabilis's on sputum and urine, Pseudomonas on trachea, and Klebsiella pneumonia on sputum. Patient had rapid response called for sepsis alert, patient upgraded to ICU for septic shock requiring pressors. Chest x-ray on 01/15/2025 continue to show significant bibasilar pneumonia. CT chest/abdomen/pelvis from 01/05/2025 showed osteomyelitis of right ischium and recommend ultrasound soft tissue right lower lateral abdominal wall to assess soft tissue nodules in the subcutaneous tissue, the largest 22 mm. Blood cultures 01/15/2025 negative. Sputum culture 01/15/25 showed Klebsiella. General surgery consulted for potential debridement of sacral ulcer. -Continue with vancomycin and meropenem until 01/26/2025 -Monitor daily labs -Follow-up surgery recommendations -Inhaled albuterol every 6 hours as needed for increased respiratory effort or wheezing -ID consulted, appreciate recommendations #Anemia of chronic disease #Acute anemia Patient's hemoglobin was 6.8. Receiving transfusion 1 PRBC . No signs of active bleeding. Posttransfusion H&H improved, hemoglobin currently stable. -Continue to monitor #Adrenal insufficiency, suspected Patient takes 0.1 mg fludrocortisone at twice daily at home, suspect due to history of adrenal sufficiency although not clearly documented. Would explain patient's significant hypotension and continued soft blood pressure. -Resume home meds: Fludrocortisone 0.1 mg GT twice daily #Obstructive uropathy #ELDON on CKD, improving Patient has a nephrostomy tube (placed at [facility]) as well as suprapubic catheter Patient had elevated creatinine above baseline, improving with free water flushes. -Renally dose medications -Avoid nephrotoxic agents #Transaminitis, improving Patient came in initially with AST 814, ALT 1105, ALP 413 Could be due to shock liver in the setting of shock -Continue to monitor #Diabetes mellitus type 2 -Currently on insulin sliding scale, hypoglycemia protocol in place #Right upper extremity DVT Venous Doppler study of right upper extremity showed thrombus involving the right cephalic and right brachial veins. We will continue with warm compress and refrain from any IV lines on the right upper extremity. -Lovenox 60 mg BID #Seizure, patient history #Anoxic brain injury due to cardiac arrest Patient history as stated. Patient is nonverbal at baseline. -Continue with baclofen, Keppra and phenytoin Diet: Tube feeds DVT ppx: Lovenox GI ppx: Lansoprazole Lines: PIV, left-sided central line, suprapubic catheter, right-sided nephrostomy tube, trach Code status: Full Plan of care discussed with senior resident Dr. Owusu PGY?[address] Dale. James Crespo MD PGY?1 Attending Provider Attestation/Addendum 39-year-old male with multiple comorbidities including cardiac arrest with subsequent anoxic brain injury who is dependent on mechanical ventilation via tracheostomy PEG tube placement and obstructive uropathy status post suprapubic catheter and right colostomy and bilateral DVTs who initially presented to the ER on 01/06/2020 for hypotension found to have septic shock secondary to ventilator associated pneumonia and For sacral osteomyelitis subsequently downgraded to [facility] on 01/20/2025. During course of hospitalization, patient received aggressive antibiotic therapy for Klebsiella pneumonia and sacral osteomyelitis. As of now, patient continues to be on ertapenem and vancomycin. In addition, patient also have extensive right upper extremity DVT and currently on Lovenox 60 mg twice daily. Overall plan, awaiting infectious disease input regarding need for IV antibiotic therapy versus oral therapy. Continue close monitoring patient is back on baseline vent setting with FiO2 of 40%.I reviewed above note and agree with findings and plans. I have also personally examined the patient with medicine team and went over assessment and plan with medical team including internet programmer and resident physician.
--- NOTE | 2025-01-22 18:57 | ESPR_ITS ---
Documentation for date of: 01/22/25 Subjective Subjective Interval history: Newly placed PEG tube is working well No drainage at the site Exam Vital Signs Temp Pulse Resp BP Pulse Ox O2 Del Method O2 Flow Rate 97.9 F 100 16 108/74 99 Mechanical Ventilation 45 01/22/25 16:00 01/22/25 17:15 01/22/25 17:15 01/22/25 16:00 01/22/25 17:15 01/22/25 16:00 01/22/25 16:00 FiO2 40 01/22/25 17:15 Objective Labs 01/22/25 05:06 01/22/25 05:06 Labs: Laboratory Results - last 24 hr 01/22/25 05:06 WBC 10.9 H RBC 3.19 L Hgb 9.5 L Hct 29.8 L MCV 93 MCH 29.8 MCHC 31.9 RDW Std Deviation 48.2 H Plt Count 385 D Neut % (Auto) 62 Lymph % (Auto) 14 [place] % (Auto) 6 Eos % (Auto) 16 H Baso % (Auto) 1 Neut # (Auto) 6.7 Lymph # (Auto) 1.5 [place] # (Auto) 0.7 Eos # (Auto) 1.7 H Baso # (Auto) 0.1 Immature Gran # (Auto) 0.18 H Absolute Nucleated RBC 0.00 Immature Gran % 2 H Nucleated RBC % 0 Sodium 142 Potassium 3.9 Chloride 107 Carbon Dioxide 26.6 Anion Gap 8 BUN 26 H Creatinine 1.4 H Estim Creat Clear Calc 93.8 eGFR > 60 BUN/Creatinine Ratio 19 Glucose 120 H Calculated Osmolality 288 Calcium 8.8 Corrected Calcium 9.4 Total Bilirubin < 0.2 L AST 16 ALT 32 Alkaline Phosphatase 200 H Total Protein 6.4 Albumin 3.3 L Globulin 3.1 Albumin/Globulin Ratio 1.1 L Random Vancomycin 21.8 Impressions Impression: Well working newly placed PEG tube Continue enteral hyperalimentation ABG Interpretation ABG results: 01/05/25 19:43 ABG pH 7.39 ABG pCO2 40 ABG pO2 93 ABG HCO3 24 ABG O2 Saturation 98 ABG Base Excess -1 Assessment & Plan A&P Narrative # PEG tube evaluation plan Consent obtained for removal of the existing Lal catheter with placement of a new [place] 20 [place]NOR tube at the bedside we will proceed with the procedure Thank you for the opportunity participate in care of this patient other medical problems include # 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
[2025-01-23] VITALS (17 sets, daily range): BP systolic 98–118; BP diastolic 68–87; PULSE 92–120; RESP 12–26; TEMP 36.1–36.8; O2SAT 97–100; BMI 21.5
[2025-01-23] MEDS: MEROPENEM INJ 1,000 MG in SODIUM CHLORIDE 0.9% (Popper) 50 ML 100 MG IV ×3 (05:23→21:10)
[2025-01-23] MEDS: MIDODRINE 5 MG TABLET 10 MG PO ×3 (05:24→21:11)
[2025-01-23] MEDS: BACLOFEN 10 MG TABLET 5 MG PO ×3 (05:25→21:11)
[2025-01-23 07:42] LABS: Basophils # (Auto) 0.1 Thou/mm3 (0.0-0.2); Basophils % (Auto) 1 % (0-2.5); Eosinophils # (Auto) 1.9 Thou/mm3 (0.0-0.5); Eosinophils % (Auto) 19 % (0-10); Hematocrit 31.5 % (41.0-53.0); Hemoglobin 9.9 g/dL (13.5-16.0); Immature Granulocytes % (Auto) 2 % (0-0); Immature Granulocytes Auto 0.19 Thou/mm3 (0.00-0.00); Lymphocytes # (Auto) 1.6 Thou/mm3 (1.0-4.8); Lymphocytes % (Auto) 17 % (10-50); Mean Corpuscular HGB Conc 31.4 g/dl (31.0-37.0); Mean Corpuscular Hemoglobin 29.2 pg (25.0-35.0); Mean Corpuscular Volume 93 fL (80-100); Monocytes # (Auto) 0.7 Thou/mm3 (0.0-0.8); Monocytes % (Auto) 7 % (0-12); Neutrophils # (Auto) 5.4 Thou/mm3 (1.8-7.7); Neutrophils % (Auto) 55 % (37-80); Nucleated Red Blood Cell % 0 /100 WBC (0); Platelet Count 449 Thou/mm3 (140-440); RDW Standard Deviation 48.2 fL (35.1-43.9); Red Blood Count 3.39 Miln/mm3 (4.50-5.90); White Blood Count 9.9 Thou/mm3 (3.8-10.6)
[2025-01-23] MEDS: LEVALBUTEROL RT 1.25 MG/0.5 ML NEBU INH ×3 (07:45→15:37)
[2025-01-23] MEDS: IPRATROPIUM RT 0.5 MG/ 2.5 ML NEBU INH ×3 (07:45→15:37)
[2025-01-23 08:19] LABS: Alanine Aminotransferase 35 U/L (10-49); Albumin, Serum 3.1 gm/dL (3.5-5.0); Albumin/Globulin Ratio 1.2 (1.2-2.2); Alkaline Phosphatase 222 U/L (46-116); Anion Gap 6 (7-16); Aspartate Amino Transferase 26 U/L (0-34); BUN/Creatinine Ratio 21 Ratio (12-20); Bilirubin,Total < 0.2 mg/dL (0.3-1.2); Blood Urea Nitrogen 31 mg/dL (9-23); Calcium 8.2 mg/dL (8.3-10.6); Calcium (Corrected) 8.9 mg/dL (8.5-10.1); Carbon Dioxide 29.6 mMol/L (20.0-31.0); Chloride 106 mMol/L (98-107); Creatinine (Component) 1.5 mg/dL (0.6-1.3); Estimated Creatinine Clearance 55.7 mL/min (>60); Globulin 2.6 gm/dL (2.3-3.5); Glucose 105 mg/dL (74-106); Osmolality,Calculated 289 (275-295); Potassium 4.8 mMol/L (3.4-5.1); Sodium 142 mMol/L (136-145); Total Protein 5.7 gm/dL (5.7-8.2); eGFR 60 See Note
[2025-01-23] MEDS: VANCOMYCIN/NS 500 MG IVPB 100 ML 120 MG IV (10:04)
[2025-01-23] MEDS: levETIRAcetam LIQD 500 MG/5 ML UDC 1000 MG GT ×2 (10:04→21:10)
[2025-01-23] MEDS: MULTIVITAMIN 15 ML UDC PO (10:04)
[2025-01-23] MEDS: LANSOPRAZOLE 30 MG TAB.RAP.DR GT (10:05)
[2025-01-23] MEDS: VIT B12/Vit C/FA (Nephrovite) TABLET 1 TAB PO (10:05)
[2025-01-23] MEDS: FLUDROCORTISONE ACETATE 0.1 MG TABLET GT ×2 (10:05→21:11)
[2025-01-23] MEDS: Silvasorb Gel 45 ML TUBE TOP (10:06)
[2025-01-23] MEDS: PHENYTOIN 100 MG/4 ML UDC 600 MG GT ×2 (10:09→21:09)
[2025-01-23 11:10] LABS: Glucose Estimated Average 103 mg/dL (80-131); Hemoglobin A1C 5.2 % Hgb (4.8-6.0)
--- NOTE | 2025-01-23 15:18 | PD.RESPRO ---
Documentation for date of: 01/23/25 Subjective Subjective Interval history: No overnight events. Patient seen and examined at bedside. No significant changes in status, patient appears comfortable. Consulted infectious disease, pending recommendations. Vancomycin changed to doxycycline. Exam Vital Signs Temp Pulse Resp BP Pulse Ox O2 Del Method O2 Flow Rate 97.3 F 111 H 20 98/70 99 Mechanical Ventilation 45 01/23/25 12:00 01/23/25 14:23 01/23/25 12:00 01/23/25 13:10 01/23/25 14:23 01/23/25 12:00 01/23/25 12:00 FiO2 40 01/23/25 14:23 Narrative Exam PE: Gen: Chronically ill-appearing. HEENT: NCAT, MMM, anicteric conjunctivae. Tracheostomy to vent. CVS: normal S1 and S2. RRR. No M/R/G. Left-sided central line. Resp: CTA B/L. No rhonchi, rales, crackles or wheezing. Poor lung sounds due to low respiratory effort. Abd: soft, non-tender, non-distended. PEG tube. Nephrostomy tube. Suprapubic Lal cath. MSK: Sacral ulcer with granulation tissue, bandaged. Bilateral lower extremity contractures. Dry flaky skin bilateral lower extremities. Neuro: Flexor posturing to noxious stimuli. Eyes open but does not track. Nonverbal. Objective Labs 01/25/25 04:26 01/25/25 05:47 Labs: Laboratory Results - last 24 hr 01/20/25 01/23/25 01/23/25 07:15 04:34 04:38 WBC 9.9 RBC 3.39 L Hgb 9.9 L Hct 31.5 L MCV 93 MCH 29.2 MCHC 31.4 RDW Std Deviation 48.2 H Plt Count 449 H D Neut % (Auto) 55 Lymph % (Auto) 17 [place] % (Auto) 7 Eos % (Auto) 19 H Baso % (Auto) 1 Neut # (Auto) 5.4 Lymph # (Auto) 1.6 [place] # (Auto) 0.7 Eos # (Auto) 1.9 H Baso # (Auto) 0.1 Immature Gran # (Auto) 0.19 H Absolute Nucleated RBC 0.00 Immature Gran % 2 H Nucleated RBC % 0 Sodium 142 Potassium 4.8 D Chloride 106 Carbon Dioxide 29.6 Anion Gap 6 L BUN 31 H Creatinine 1.5 H Estim Creat Clear Calc 55.7 L eGFR 60 BUN/Creatinine Ratio [address] Glu mg/dL 103 Hemoglobin A1c 5.2 Calculated Osmolality 289 Calcium 8.2 L Corrected Calcium 8.9 Total Bilirubin < 0.2 L AST 26 ALT 35 Alkaline Phosphatase 222 H D Total Protein 5.7 Albumin 3.1 L Globulin 2.6 Albumin/Globulin Ratio 1.2 Random Vancomycin 15.0 Crossmatch See Detail ABG Interpretation ABG results: 01/05/25 19:43 ABG pH 7.39 ABG pCO2 40 ABG pO2 93 ABG HCO3 24 ABG O2 Saturation 98 ABG Base Excess -1 Quality Measures Quality Measures VTE prophylaxis Assessment & Plan Assessment Current Active Medications: Generic Name Dose Route Start Last Admin Trade Name Freq PRN Reason Stop Dose Admin Acetaminophen 650 mg 01/17/25 16:26 01/18/25 18:24 Acetaminophen 325 Mg Tablet PO 02/16/25 16:25 650 mg Q6HR PRN Administration pain and Fever >100.4 Albuterol 2.5 mg 01/07/25 15:17 Albuterol Rt 2.5 Mg/0.5 Ml Nebu INH 02/06/25 14:58 Q6H PRN shortness of breath or wheezing Baclofen 5 mg 01/07/25 22:00 01/23/25 13:10 Baclofen 10 Mg Tablet PO 02/06/25 21:59 5 mg TID KIT Administration Gabapentin 250 Mg/5 0 ea 01/07/25 18:42 01/18/25 08:30 Ml Solution GT 02/06/25 18:41 5 ml Q8HR PRN Administration HICCUPS Dextrose 25 ml 01/05/25 19:11 Dextrose 50%-Water Inj 50 Ml Syringe IV 02/04/25 19:10 Q15MIN PRN BG 50-70 responsive npo pt Dextrose 50 ml 01/05/25 19:11 Dextrose 50%-Water Inj 50 Ml Syringe IV 02/04/25 19:10 Q15MIN PRN BG <50 OR BG <70 & pt unresponsive Doxycycline Hyclate 100 mg 01/23/25 21:00 Doxycycline 100 Mg Tablet PO 01/30/25 20:59 BID KIT Fludrocortisone Acetate 0.1 mg 01/07/25 21:00 01/23/25 10:05 Fludrocortisone Acetate 0.1 Mg Tablet GT 02/06/25 20:59 0.1 mg BID KIT Administration Glucagon 1 mg 01/05/25 19:11 Glucagon Inj 1 Mg Vial IM Q15MIN PRN BG <70, and no IV access Chlorpromazine HCl 25 mg/ 51 mls @ 102 mls/hr 01/17/25 16:13 01/18/25 08:29 Sodium Chloride IV 02/16/25 16:12 102 mls/hr Q6HR PRN Administration HICCUPS Meropenem 1,000 mg/ Sodium 50 mls @ 100 mls/hr 01/21/25 22:00 01/23/25 13:09 Chloride IV 01/26/25 09:00 100 mls/hr Q8HR KIT Administration Insulin Human Lispro 0 unit 01/06/25 06:00 01/23/25 12:00 Insulin Lispro (Admelog) 1 Unit/0.01 Ml Unit SC 02/05/25 05:59 Not Given Q6HR [facility] Protocol Ipratropium [place] 0.5 mg 01/07/25 21:00 01/23/25 10:29 Ipratropium Rt 0.5 Mg/ 2.5 Ml Nebu INH 02/06/25 20:59 0.5 mg QIDRT KIT Administration Lansoprazole 30 mg 01/10/25 09:00 01/23/25 10:05 Lansoprazole 30 Mg Tab.Rap. GT 02/07/25 08:59 30 mg QDAY KIT Administration Levalbuterol HCl 1.25 mg 01/07/25 21:00 01/23/25 10:29 Levalbuterol Rt 1.25 Mg/0.5 Ml Nebu INH 02/06/25 20:59 1.25 mg QIDRT KIT Administration Levetiracetam 1,000 mg 01/14/25 13:45 01/23/25 10:04 Levetiracetam Liqd 500 Mg/5 Ml Udc GT 02/13/25 13:44 1,000 mg BID KIT Administration Midodrine 10 mg 01/21/25 14:00 01/23/25 13:10 Midodrine 5 Mg Tablet PO 02/20/25 13:59 10 mg TID KIT Administration Multivitamins/Minerals 15 ml 01/08/25 09:00 01/23/25 10:04 Multivitamin 15 Ml Udc PO 02/07/25 08:59 15 ml QDAY KIT Administration Ondansetron HCl 4 mg 01/05/25 17:09 Ondansetron Inj 2 Mg/Ml Inj 2 Ml IV 02/04/25 17:08 Q6H PRN NAUSEA OR VOMITING Protocol Phenytoin 600 mg 01/07/25 21:00 01/23/25 10:09 Phenytoin 100 Mg/4 Ml Udc GT 02/06/25 20:59 600 mg BID KIT Administration Sodium Chloride 3 ml 01/07/25 17:55 Sodium Chloride Rt [place] 0.9% 3 Ml Nebu INH 02/06/25 17:54 PRN PRN SOLN Vitamin B Complex/Vit C/Folic Acid 1 tab 01/08/25 09:00 01/23/25 10:05 Vit B12/Vit C/Fa (Nephrovite) Tablet PO 02/07/25 08:59 1 tab QDAY KIT Administration Plan 39-year-old male with past medical history of 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 #Septic shock, resolved #Chronic tracheostomy tube on mechanical ventilation #Bibasilar pneumonia Likely multifactorial as patient has multiple bacteria's growing on multiple cultures including Proteus Mirabilis's on sputum and urine, Pseudomonas on trachea, and Klebsiella pneumonia on sputum. Patient had rapid response called for sepsis alert, patient upgraded to ICU for septic shock requiring pressors. Chest x-ray on 01/15/2025 continue to show significant bibasilar pneumonia. CT chest/abdomen/pelvis from 01/05/2025 showed osteomyelitis of right ischium and recommend ultrasound soft tissue right lower lateral abdominal wall to assess soft tissue nodules in the subcutaneous tissue, the largest 22 mm. Blood cultures 01/15/2025 negative. Sputum culture 01/15/25 showed Klebsiella. General surgery consulted for potential debridement of sacral ulcer. -Continue with doxycycline and meropenem until 01/26/2025 -Considering 6-week course of Augmentin and doxycycline for osteomyelitis treatment, pending ID recs -Monitor daily labs -Follow-up surgery recommendations -Inhaled albuterol every 6 hours as needed for increased respiratory effort or wheezing -ID consulted, appreciate recommendations #Anemia of chronic disease #Acute anemia Patient's hemoglobin was 6.8. Receiving transfusion 1 PRBC . No signs of active bleeding. Posttransfusion H&H improved, hemoglobin currently stable. -Continue to monitor #Adrenal insufficiency, suspected Patient takes 0.1 mg fludrocortisone at twice daily at home, suspect due to history of adrenal sufficiency although not clearly documented. Would explain patient's significant hypotension and continued soft blood pressure. -Resume home meds: Fludrocortisone 0.1 mg GT twice daily #Obstructive uropathy #ELDON on CKD, improving Patient has a nephrostomy tube ([facility] at [facility]) as well as suprapubic catheter Patient had elevated creatinine above baseline, improving with free water flushes. -Renally dose medications -Avoid nephrotoxic agents #Transaminitis, improving Patient came in initially with AST 814, ALT 1105, ALP 413 Could be due to shock liver in the setting of shock -Continue to monitor #Diabetes mellitus type 2 -Currently on insulin sliding scale, hypoglycemia protocol in place #Right upper extremity DVT Venous Doppler study of right upper extremity showed thrombus involving the right cephalic and right brachial veins. We will continue with warm compress and refrain from any IV lines on the right upper extremity. -Lovenox 60 mg BID #Seizure, patient history #Anoxic brain injury due to cardiac arrest Patient history as stated. Patient is nonverbal at baseline. -Continue with baclofen, Keppra and phenytoin Diet: Tube feeds DVT ppx: Lovenox GI ppx: Lansoprazole Lines: PIV, left-sided central line, suprapubic catheter, right-sided nephrostomy tube, trach Code status: Full Plan of care discussed with attending Dr. Dale. James Crespo MD PGY?1 Attending Provider Attestation/Addendum 39-year-old male with multiple comorbidities including cardiac arrest with subsequent anoxic brain injury who is dependent on mechanical ventilation via tracheostomy PEG tube placement and obstructive uropathy status post suprapubic catheter and right colostomy and bilateral DVTs who initially presented to the ER on 01/06/2020 for hypotension found to have septic shock secondary to ventilator associated pneumonia and For sacral osteomyelitis subsequently downgraded to [facility] on 01/20/2025. During course of hospitalization, patient received aggressive antibiotic therapy for Klebsiella pneumonia and sacral osteomyelitis. As of now, patient continues to be on ertapenem and vancomycin. In addition, patient also have extensive right upper extremity DVT and currently on Lovenox 60 mg twice daily. Overall plan, awaiting infectious disease input regarding need for IV antibiotic therapy versus oral therapy. Continue close monitoring patient is back on baseline vent setting with FiO2 of 40%.overnight, no acute events and plan to change the patient from vancomycin to doxycycline and plan to complete 2-week therapy of the plan for Klebsiella pneumonia. I reviewed above note and agree with findings and plans. I have also personally examined the patient with medicine team and went over assessment and plan with medical team including internal grinder tender and resident physician.
--- NOTE | 2025-01-23 17:15 | PD.IMPROG ---
Documentation for date of: 01/23/25 Subjective Subjective Interval history: No leakage at the PEG site Exam Vital Signs Temp Pulse Resp BP Pulse Ox O2 Del Method O2 Flow Rate 97.8 F 113 H 23 H 118/87 H 99 Mechanical Ventilation 45 01/23/25 16:00 01/23/25 16:00 01/23/25 16:00 01/23/25 16:00 01/23/25 16:00 01/23/25 16:00 01/23/25 16:00 FiO2 45 01/23/25 16:00 Objective Labs 01/23/25 04:34 01/23/25 04:34 Labs: Laboratory Results - last 24 hr 01/20/25 01/23/25 01/23/25 07:15 04:34 04:38 WBC 9.9 RBC 3.39 L Hgb 9.9 L Hct 31.5 L MCV 93 MCH 29.2 MCHC 31.4 RDW Std Deviation 48.2 H Plt Count 449 H D Neut % (Auto) 55 Lymph % (Auto) 17 [place] % (Auto) 7 Eos % (Auto) 19 H Baso % (Auto) 1 Neut # (Auto) 5.4 Lymph # (Auto) 1.6 [place] # (Auto) 0.7 Eos # (Auto) 1.9 H Baso # (Auto) 0.1 Immature Gran # (Auto) 0.19 H Absolute Nucleated RBC 0.00 Immature Gran % 2 H Nucleated RBC % 0 Sodium 142 Potassium 4.8 D Chloride 106 Carbon Dioxide 29.6 Anion Gap 6 L BUN 31 H Creatinine 1.5 H Estim Creat Clear Calc 55.7 L eGFR 60 BUN/Creatinine Ratio 21 [address] Glucose [address] Glu mg/dL 103 Hemoglobin A1c 5.2 Calculated Osmolality 289 Calcium 8.2 L Corrected Calcium 8.9 Total Bilirubin < 0.2 L AST 26 ALT 35 Alkaline Phosphatase 222 H D Total Protein 5.7 Albumin 3.1 L Globulin 2.6 Albumin/Globulin Ratio 1.2 Random Vancomycin 15.0 Crossmatch See Detail Impressions Impression: Status post placement of a new PEG tube doing well ABG Interpretation ABG results: 01/05/25 19:43 ABG pH 7.39 ABG pCO2 40 ABG pO2 93 ABG HCO3 24 ABG O2 Saturation 98 ABG Base Excess -1 Assessment & Plan A&P Narrative # PEG tube evaluation plan Consent obtained for removal of the existing Lal catheter with placement of a new [place] 20 CONNOR tube at the bedside we will proceed with the procedure Thank you for the opportunity participate in care of this patient other medical problems include # 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
[2025-01-23] MEDS: DOXYCYCLINE 100 MG TABLET PO (21:11)
[2025-01-24] VITALS (16 sets, daily range): BP systolic 91–125; BP diastolic 62–73; PULSE 90–119; RESP 12–32; TEMP 36.1–36.2; O2SAT 93–99
[2025-01-24] MEDS: MEROPENEM INJ 1,000 MG in SODIUM CHLORIDE 0.9% (Popper) 50 ML 100 MG IV ×2 (05:25→21:10)
[2025-01-24] MEDS: BACLOFEN 10 MG TABLET 5 MG PO ×3 (05:26→21:10)
[2025-01-24 05:59] LABS: Basophils # (Auto) 0.1 Thou/mm3 (0.0-0.2); Basophils % (Auto) 1 % (0-2.5); Eosinophils # (Auto) 1.9 Thou/mm3 (0.0-0.5); Eosinophils % (Auto) 14 % (0-10); Hematocrit 28.5 % (41.0-53.0); Hemoglobin 8.9 g/dL (13.5-16.0); Immature Granulocytes % (Auto) 1 % (0-0); Immature Granulocytes Auto 0.16 Thou/mm3 (0.00-0.00); Lymphocytes # (Auto) 1.3 Thou/mm3 (1.0-4.8); Lymphocytes % (Auto) 10 % (10-50); Mean Corpuscular HGB Conc 31.2 g/dl (31.0-37.0); Mean Corpuscular Hemoglobin 29.8 pg (25.0-35.0); Mean Corpuscular Volume 95 fL (80-100); Monocytes # (Auto) 0.7 Thou/mm3 (0.0-0.8); Monocytes % (Auto) 5 % (0-12); Neutrophils # (Auto) 8.9 Thou/mm3 (1.8-7.7); Neutrophils % (Auto) 69 % (37-80); Nucleated Red Blood Cell % 0 /100 WBC (0); Platelet Count 441 Thou/mm3 (140-440); Red Blood Count 2.99 Miln/mm3 (4.50-5.90)
[2025-01-24 06:26] LABS: Alanine Aminotransferase 26 U/L (10-49); Albumin/Globulin Ratio 1.1 (1.2-2.2); Alkaline Phosphatase 198 U/L (46-116); Anion Gap 12 (7-16); Aspartate Amino Transferase 18 U/L (0-34); BUN/Creatinine Ratio 18 Ratio (12-20); Bilirubin,Total < 0.2 mg/dL (0.3-1.2); Blood Urea Nitrogen 27 mg/dL (9-23); Calcium 7.7 mg/dL (8.3-10.6); Calcium (Corrected) 8.5 mg/dL (8.5-10.1); Carbon Dioxide 27.4 mMol/L (20.0-31.0); Chloride 110 mMol/L (98-107); Creatinine (Component) 1.5 mg/dL (0.6-1.3); Estimated Creatinine Clearance 56.2 mL/min (>60); Globulin 2.7 gm/dL (2.3-3.5); Glucose 147 mg/dL (74-106); Magnesium 1.9 mg/dL (1.6-2.6); Osmolality,Calculated 304 (275-295); Phosphorous 1.7 mg/dL (2.4-5.1); Potassium 3.3 mMol/L (3.4-5.1); Sodium 149 mMol/L (136-145); Total Protein 5.7 gm/dL (5.7-8.2); Vancomycin,Random 15.5 mcg/mL; eGFR 60 See Note
[2025-01-24] MEDS: POTASSIUM CHLORIDE 10% 20 MEQ/15 ML UDC 40 MEQ GT (07:33)
[2025-01-24] MEDS: NAPH,KPH MBDB 1 PACKET (1.5 GM) GT (07:33)
[2025-01-24] MEDS: LEVALBUTEROL RT 1.25 MG/0.5 ML NEBU INH ×4 (07:53→19:05)
[2025-01-24] MEDS: IPRATROPIUM RT 0.5 MG/ 2.5 ML NEBU INH ×4 (07:53→19:05)
--- NOTE | 2025-01-24 08:08 | PC.NURSE ---
Notified Dr Pearson that patient central line was clogged on all ports. stated will changed IV order to Gtube for time being.
--- NOTE | 2025-01-24 10:00 | PC.NURSE ---
Dr Pearson notified that patient family would like to see the physician and social media editor. Dr Pearson stated that Dr Dale and social media editor would see patient at bedside.
[2025-01-24] MEDS: DOXYCYCLINE 100 MG TABLET PO ×2 (10:04→21:09)
[2025-01-24] MEDS: VIT B12/Vit C/FA (Nephrovite) TABLET 1 TAB PO (10:04)
[2025-01-24] MEDS: PHENYTOIN 100 MG/4 ML UDC 600 MG GT ×2 (10:04→21:09)
[2025-01-24] MEDS: FLUDROCORTISONE ACETATE 0.1 MG TABLET GT ×2 (10:04→21:09)
[2025-01-24] MEDS: LANSOPRAZOLE 30 MG TAB.RAP.DR GT (10:04)
[2025-01-24] MEDS: levETIRAcetam LIQD 500 MG/5 ML UDC 1000 MG GT ×2 (10:05→21:09)
[2025-01-24] MEDS: MULTIVITAMIN 15 ML UDC PO (10:05)
[2025-01-24] MEDS: Silvasorb Gel 45 ML TUBE TOP (10:06)
[2025-01-24] MEDS: ENOXAPARIN SOD INJ 100 MG/ML SYRINGE 60 MG SC ×2 (10:50→21:12)
--- NOTE | 2025-01-24 12:30 | PC.NURSE ---
Informed healthcare social worker Naomy, that patient family was still waiting to see Physician and Car Repairman. Naomy stated she would speak with Dr Dale and then visit patient.
--- NOTE | 2025-01-24 12:35 | XR_ITS ---
Examination: Venous duplex upper extremity sonogram, bilateral. Date and time of exam: January 24, 2025 1419 hours INDICATIONS: Arm swelling redness and pain this week, positive for thrombus in the right cephalic and right brachial veins on ultrasound examination January 12, 2025 Technique: Multiple sonographic images of the deep venous system have been obtained. B-mode/2-D grayscale imaging of vascular structures and Doppler spectral analysis (waveforms) and color performed Both legs are examined. Findings: Positive for thrombus in the superficial right cephalic vein Unable to diagnostically visualized most of the left arm deep venous system, the left cephalic left brachial veins are open IMPRESSION: Limited study, no acute DVT demonstrated
[2025-01-24] MEDS: MIDODRINE 5 MG TABLET 10 MG PO ×2 (13:35→21:10)
--- NOTE | 2025-01-24 13:40 | PD.IMPROG ---
Documentation for date of: 01/24/25 Subjective Subjective Interval history: No leakage at the PEG site Exam Vital Signs Temp Pulse Resp BP Pulse Ox O2 Del Method O2 Flow Rate 96.9 F 102 H 19 91/71 99 Mechanical Ventilation 45 01/24/25 11:47 01/24/25 13:35 01/24/25 11:54 01/24/25 13:35 01/24/25 11:54 01/24/25 11:47 01/24/25 11:47 FiO2 40 01/24/25 12:00 Objective Labs 01/24/25 05:13 01/24/25 05:13 Labs: Laboratory Results - last 24 hr 01/24/25 05:13 WBC 13.0 H RBC 2.99 L Hgb 8.9 L Hct 28.5 L MCV 95 MCH 29.8 MCHC 31.2 RDW Std Deviation 49.0 H Plt Count 441 H Neut % (Auto) 69 Lymph % (Auto) 10 [place] % (Auto) 5 Eos % (Auto) 14 H Baso % (Auto) 1 Neut # (Auto) 8.9 H Lymph # (Auto) 1.3 [place] # (Auto) 0.7 Eos # (Auto) 1.9 H Baso # (Auto) 0.1 Immature Gran # (Auto) 0.16 H Absolute Nucleated RBC 0.00 Immature Gran % 1 H Nucleated RBC % 0 Sodium 149 H Potassium 3.3 L D Chloride 110 H Carbon Dioxide 27.4 Anion Gap 12 BUN 27 H Creatinine 1.5 H Estim Creat Clear Calc 56.2 L eGFR 60 BUN/Creatinine Ratio 18 Glucose 147 H Calculated Osmolality 304 H Calcium 7.7 L Corrected Calcium 8.5 Phosphorus 1.7 L Magnesium 1.9 Total Bilirubin < 0.2 L AST 18 ALT 26 Alkaline Phosphatase 198 H D Total Protein 5.7 Albumin 3.0 L Globulin 2.7 Albumin/Globulin Ratio 1.1 L Random Vancomycin 15.5 Impressions Impression: Malfunctioning PEG tube newly replaced Continue to monitor ABG Interpretation ABG results: 01/05/25 19:43 ABG pH 7.39 ABG pCO2 40 ABG pO2 93 ABG HCO3 24 ABG O2 Saturation 98 ABG Base Excess -1 Assessment & Plan A&P Narrative # PEG tube evaluation plan Consent obtained for removal of the existing Lal catheter with placement of a new [place] 20 CONNOR tube at the bedside we will proceed with the procedure Thank you for the opportunity participate in care of this patient other medical problems include # 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
--- NOTE | 2025-01-24 13:42 | PD.RESPRO ---
Documentation for date of: 01/24/25 Subjective Subjective Interval history: Overnight labs and events reviewed, patient was at bedside, family present in the room, Aunt was concerned about patient's possible transfer out of town, as patient may need LTAC on discharge for continued antibiotics. Pending ID recommendations. Tentative plan to complete meropenem and doxycycline until 01/26/2025 for treatment of Klebsiella pneumonia, and then continue p.o. antibiotics Augmentin and doxycycline for 6 weeks to complete treatment for osteomyelitis. Labs pertinent for hypernatremia sodium 149, hypokalemia K3.3, improving ELDON, ordered Kcl replacement via G-tube and increased free water flushes to 250 cc every 4 hours. Patient has a central line in place, but RN having trouble running IV through the central line, discussed with ICU, recommended tunneled catheter placement for long-term IV access, as patient had prior unsuccessful attempts at PICC line placements bilaterally. Ordered venous duplex ultrasound bilateral upper extremity, if patent left upper extremity venous system, may consider peripheral IV for antibiotics. Exam Vital Signs Temp Pulse Resp BP Pulse Ox O2 Del Method O2 Flow Rate 96.9 F 102 H 19 91/71 99 Mechanical Ventilation 45 01/24/25 11:47 01/24/25 13:35 01/24/25 11:54 01/24/25 13:35 01/24/25 11:54 01/24/25 11:47 01/24/25 11:47 FiO2 40 01/24/25 12:00 Narrative Exam PE: Gen: Chronically ill-appearing. HEENT: NCAT, MMM, anicteric conjunctivae. Tracheostomy to vent. CVS: normal S1 and S2. RRR. No M/R/G. Left-sided central line. Resp: CTA B/L. No rhonchi, rales, crackles or wheezing. Poor lung sounds due to low respiratory effort. Abd: soft, non-tender, non-distended. PEG tube. Nephrostomy tube. Suprapubic Lal cath. MSK: Sacral ulcer with granulation tissue, bandaged. Bilateral lower extremity contractures. Dry flaky skin bilateral lower extremities. Neuro: Flexor posturing to noxious stimuli. Eyes open but does not track. Nonverbal. Objective Labs 01/25/25 04:26 01/25/25 05:47 Labs: Laboratory Results - last 24 hr 01/24/25 05:13 WBC 13.0 H RBC 2.99 L Hgb 8.9 L Hct 28.5 L MCV 95 MCH 29.8 MCHC 31.2 RDW Std Deviation 49.0 H Plt Count 441 H Neut % (Auto) 69 Lymph % (Auto) 10 [place] % (Auto) 5 Eos % (Auto) 14 H Baso % (Auto) 1 Neut # (Auto) 8.9 H Lymph # (Auto) 1.3 [place] # (Auto) 0.7 Eos # (Auto) 1.9 H Baso # (Auto) 0.1 Immature Gran # (Auto) 0.16 H Absolute Nucleated RBC 0.00 Immature Gran % 1 H Nucleated RBC % 0 Sodium 149 H Potassium 3.3 L D Chloride 110 H Carbon Dioxide 27.4 Anion Gap 12 BUN 27 H Creatinine 1.5 H Estim Creat Clear Calc 56.2 L eGFR 60 BUN/Creatinine Ratio 18 Glucose 147 H Calculated Osmolality 304 H Calcium 7.7 L Corrected Calcium 8.5 Phosphorus 1.7 L Magnesium 1.9 Total Bilirubin < 0.2 L AST 18 ALT 26 Alkaline Phosphatase 198 H D Total Protein 5.7 Albumin 3.0 L Globulin 2.7 Albumin/Globulin Ratio 1.1 L Random Vancomycin 15.5 ABG Interpretation ABG results: 01/05/25 19:43 ABG pH 7.39 ABG pCO2 40 ABG pO2 93 ABG HCO3 24 ABG O2 Saturation 98 ABG Base Excess -1 Quality Measures Quality Measures VTE prophylaxis Assessment & Plan Assessment Current Active Medications: Generic Name Dose Route Start Last Admin Trade Name Freq PRN Reason Stop Dose Admin Acetaminophen 650 mg 01/17/25 16:26 01/18/25 18:24 Acetaminophen 325 Mg Tablet PO 02/16/25 16:25 650 mg Q6HR PRN Administration pain and Fever >100.4 Albuterol 2.5 mg 01/07/25 15:17 Albuterol Rt 2.5 Mg/0.5 Ml Nebu INH 02/06/25 14:58 Q6H PRN shortness of breath or wheezing Baclofen 5 mg 01/07/25 22:00 01/24/25 13:36 Baclofen 10 Mg Tablet PO 02/06/25 21:59 5 mg TID KIT Administration Gabapentin 250 Mg/5 0 ea 01/07/25 18:42 01/18/25 08:30 Ml Solution GT 02/06/25 18:41 5 ml Q8HR PRN Administration HICCUPS Dextrose 25 ml 01/05/25 19:11 Dextrose 50%-Water Inj 50 Ml Syringe IV 02/04/25 19:10 Q15MIN PRN BG 50-70 responsive npo pt Dextrose 50 ml 01/05/25 19:11 Dextrose 50%-Water Inj 50 Ml Syringe IV 02/04/25 19:10 Q15MIN PRN BG <50 OR BG <70 & pt unresponsive Doxycycline Hyclate 100 mg 01/23/25 21:00 01/24/25 10:04 Doxycycline 100 Mg Tablet PO 01/30/25 20:59 100 mg BID KIT Administration Enoxaparin Sodium 60 mg 01/24/25 10:40 01/24/25 10:50 Enoxaparin Sod Inj 100 Mg/Ml Syringe 1 mg/kg (60 mg) 02/07/25 10:39 60 mg SC Administration BID KIT Fludrocortisone Acetate 0.1 mg 01/07/25 21:00 01/24/25 10:04 Fludrocortisone Acetate 0.1 Mg Tablet GT 02/06/25 20:59 0.1 mg BID KIT Administration Glucagon 1 mg 01/05/25 19:11 Glucagon Inj 1 Mg Vial IM Q15MIN PRN BG <70, and no IV access Chlorpromazine HCl 25 mg/ 51 mls @ 102 mls/hr 01/17/25 16:13 01/18/25 08:29 Sodium Chloride IV 02/16/25 16:12 102 mls/hr Q6HR PRN Administration HICCUPS Meropenem 1,000 mg/ Sodium 50 mls @ 100 mls/hr 01/21/25 22:00 01/24/25 05:25 Chloride IV 01/26/25 09:00 100 mls/hr Q8HR KIT Administration Insulin Human Lispro 0 unit 01/06/25 06:00 01/24/25 11:48 Insulin Lispro (Admelog) 1 Unit/0.01 Ml Unit SC 02/05/25 05:59 Not Given Q6HR [facility] Protocol Ipratropium [place] 0.5 mg 01/07/25 21:00 01/24/25 11:49 Ipratropium Rt 0.5 Mg/ 2.5 Ml Nebu INH 02/06/25 20:59 0.5 mg QIDRT KIT Administration Lansoprazole 30 mg 01/10/25 09:00 01/24/25 10:04 Lansoprazole 30 Mg Tab. GT 02/07/25 08:59 30 mg QDAY KIT Administration Levalbuterol HCl 1.25 mg 01/07/25 21:00 01/24/25 11:48 Levalbuterol Rt 1.25 Mg/0.5 Ml Nebu INH 02/06/25 20:59 1.25 mg QIDRT KIT Administration Levetiracetam 1,000 mg 01/14/25 13:45 01/24/25 10:05 Levetiracetam Liqd 500 Mg/5 Ml Udc GT 02/13/25 13:44 1,000 mg BID KIT Administration Midodrine 10 mg 01/21/25 14:00 01/24/25 13:35 Midodrine 5 Mg Tablet PO 02/20/25 13:59 10 mg TID KIT Administration Multivitamins/Minerals 15 ml 01/08/25 09:00 01/24/25 10:05 Multivitamin 15 Ml Udc PO 02/07/25 08:59 15 ml QDAY KIT Administration Ondansetron HCl 4 mg 01/05/25 17:09 Ondansetron Inj 2 Mg/Ml Inj 2 Ml IV 02/04/25 17:08 Q6H PRN NAUSEA OR VOMITING Protocol Phenytoin 600 mg 01/07/25 21:00 01/24/25 10:04 Phenytoin 100 Mg/4 Ml Udc GT 02/06/25 20:59 600 mg BID KIT Administration Sodium Chloride 3 ml 01/07/25 17:55 Sodium Chloride Rt [place] 0.9% 3 Ml Nebu INH 02/06/25 17:54 PRN PRN SOLN Vitamin B Complex/Vit C/Folic Acid 1 tab 01/08/25 09:00 01/24/25 10:04 Vit B12/Vit C/Fa (Nephrovite) Tablet PO 02/07/25 08:59 1 tab QDAY KIT Administration Plan 39-year-old male with past medical history of 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 #Ventilator associated pneumonia?Klebsiella Patient has a protracted clinical course requiring ICU stay, finished multiple courses of antibiotics, was initially positive for Klebsiella pneumonia and Proteus mirabilis on microbiology from 01/05/2025-, sensitive to Zosyn, completed antibiotic treatment, tracheal secretions culture on 01/06/2025 grew Pseudomonas aeruginosa, sensitive to Zosyn, completed 7-day antibiotics with Zosyn, but clinical condition worsened and patient developed sepsis with septic shock requiring IV pressors, was started on meropenem and doxycycline to be continued through 01/26/2025, repeat culture from 01/15/2025 grew ESBL Klebsiella, at this point there is concern for possible colonization too, as patient's condition continues to be stable, despite Klebsiella being resistant to ertapenem. ? Plan to continue meropenem and doxycycline through 01/26/2025 ? ID recommendations appreciated #Decubitus ulcer #Osteomyelitis Sacral wound culture grew ESBL Proteus on 01/08/2025 sensitive to Augmentin, ID was consulted recommended IV ertapenem for 6 weeks, ID recommendations regarding IV versus p.o. antibiotics noted. but patient has been having problems with IV access, unable to place PICC line despite multiple attempts by interventional radiology, as patient history of bilateral upper extremity DVT, currently stays on Lovenox twice daily. ? Plan to discharge patient on 6 weeks of p.o. antibiotics doxycycline and Augmentin ? ID recommendations appreciated #History of bilateral upper extremity DVT #History of factor V Leyden deficiency Patient with history of bilateral upper extremity DVT history of factor V Leyden deficiency, is on long-term anticoagulation Lovenox 60 twice daily, ?Continue Lovenox 60 mg twice daily ?Ordered repeat duplex venous ultrasound upper extremity on 01/24/2025, if left upper extremity venous system still patent, consider peripheral IV left upper extremity and DC central line. #Septic shock, resolved #Chronic tracheostomy tube on mechanical ventilation #Bibasilar pneumonia Likely multifactorial as patient has multiple bacteria's growing on multiple cultures including Proteus Mirabilis's on sputum and urine, Pseudomonas on trachea, and Klebsiella pneumonia on sputum. Patient had rapid response called for sepsis alert, patient upgraded to ICU for septic shock requiring pressors. Chest x-ray on 01/15/2025 continue to show significant bibasilar pneumonia. CT chest/abdomen/pelvis from 01/05/2025 showed osteomyelitis of right ischium and recommend ultrasound soft tissue right lower lateral abdominal wall to assess soft tissue nodules in the subcutaneous tissue, the largest 22 mm. Blood cultures 01/15/2025 negative. Sputum culture 01/15/25 showed Klebsiella. General surgery consulted for potential debridement of sacral ulcer. -Continue with doxycycline and meropenem until 01/26/2025 -Considering 6-week course of Augmentin and doxycycline for osteomyelitis treatment, pending ID recs -Monitor daily labs -Follow-up surgery recommendations -Inhaled albuterol every 6 hours as needed for increased respiratory effort or wheezing -ID consulted, appreciate recommendations #Anemia of chronic disease #Acute anemia Patient's hemoglobin was 6.8. Receiving transfusion 1 PRBC . No signs of active bleeding. Posttransfusion H&H improved, hemoglobin currently stable. -Continue to monitor #Adrenal insufficiency, suspected Patient takes 0.1 mg fludrocortisone at twice daily at home, suspect due to history of adrenal sufficiency although not clearly documented. Would explain patient's significant hypotension and continued soft blood pressure. -Resume home meds: Fludrocortisone 0.1 mg GT twice daily #Obstructive uropathy #ELDON on CKD, improving Patient has a nephrostomy tube (placed at [facility]) as well as suprapubic catheter Patient had elevated creatinine above baseline, improving with free water flushes. -Renally dose medications -Avoid nephrotoxic agents #Transaminitis, improving Patient came in initially with AST 814, ALT 1105, ALP 413 Could be due to shock liver in the setting of shock -Continue to monitor #Diabetes mellitus type 2 -Currently on insulin sliding scale, hypoglycemia protocol in place #Right upper extremity DVT Venous Doppler study of right upper extremity showed thrombus involving the right cephalic and right brachial veins. We will continue with warm compress and refrain from any IV lines on the right upper extremity. -continue Lovenox 60 mg BID #Seizure, patient history #Anoxic brain injury due to cardiac arrest Patient history as stated. Patient is nonverbal at baseline. -Continue with baclofen, Keppra and phenytoin Diet: Tube feeds DVT ppx: Lovenox GI ppx: Lansoprazole Lines: PIV, left-sided central line, suprapubic catheter, right-sided nephrostomy tube, trach Code status: Full Plan of care discussed with attending Dr. Obad. Pearson PGY2 Attending Provider Attestation/Addendum 39-year-old male with multiple comorbidities including cardiac arrest with subsequent anoxic brain injury who is dependent on mechanical ventilation via tracheostomy PEG tube placement and obstructive uropathy status post suprapubic catheter and right colostomy and bilateral DVTs who initially presented to the ER on 01/06/2020 for hypotension found to have septic shock secondary to ventilator associated pneumonia and For [facility]el[facility] During course of hospitalization, patient received aggressive antibiotic therapy for Klebsiella pneumonia and sacral osteomyelitis. As of now, patient continues to be on ertapenem and vancomycin. In addition, patient also have extensive right upper extremity DVT and currently on Lovenox 60 mg twice daily. Overall plan, awaiting infectious disease input regarding need for IV antibiotic therapy versus oral therapy. Continue close monitoring patient is back on baseline vent setting with FiO2 of 40%.furthermore, plan to change the patient from vancomycin to doxycycline and plan to complete 2-week therapy of the plan for Klebsiella pneumonia. As of now, plan to initiate LTAC placement and await ID input for final recommendations. I reviewed above note and agree with findings and plans. I have also personally examined the patient with medicine team and went over assessment and plan with medical team including internet sourcer and resident physician.
--- NOTE | 2025-01-24 14:23 | PC.NURSE ---
Notified Dr Pearson that patient family is at bedside and would like to see the Dr and Director Game. Dr informed that Dr Dale and Director Game would be seeing patient at bedside.
--- NOTE | 2025-01-24 14:30 | PC.NURSE ---
Patient family informed me they were upset and wanted to know the names of the Physician and Horticultural Agent. I called and spoke to Dr Pearson. Dr Pearson stated he would speak to Horticultural Agent and she would see patient at bedside.
--- NOTE | 2025-01-24 15:49 | PC.SS ---
Jatinder notified by An that patient's family wanted to speak to [facility]. WELDING MACHINE ASSEMBLERKelechi met with patient's aunt, Dee [id number]. Dee expressed that she was dissatisfied with social welfare research worker and attending physician due to lack of communication. Dee reported that she had been waiting for a few days to speak to someone. Dee reported that she was updated by a physician regarding discharge plan which is to send patient to LTAC. Dee reported that patient waited for more than six years to have a bed at [facility], and she cannot understand how care integration has moved from returning patient to [facility] to sending him to LTAC. SW explained that at this time, attending physician Dr. Dale is awaiting for infectious disease physician Dr. Rainey to make his recommendation in regard to IV antibiotics. SW also explained that an LTAC was suggested due to medical staff not being able to place a PICC Line which is necessary to return to [facility]. SW explained that at this time, we should await for Dr. Rainey's recommendation. If patient would need more IV antiobitcs, then care integration will be able to make a family meeting with discharge options. Dee was in agreement and she requested that patient's brother, Armando Joy (phone: [phone]), [facility]-Project Systems Engineer, Kenia Mulligan (phone: [phone]) be included. At this time, Dee reported that patient is not conserved; however, he does have a financial payee, and his mother, Victorina Smith has never been involved in his care. At this time, hospital's point of contact is Dee Smith. [facility] updated Dr. Pearson and bedside An.
[2025-01-24 18:08] LABS: Albumin, Serum 3.7 gm/dL (3.5-5.0); Anion Gap 7 (7-16); BUN/Creatinine Ratio 17 Ratio (12-20); Blood Urea Nitrogen 31 mg/dL (9-23); Calcium 8.8 mg/dL (8.3-10.6); Carbon Dioxide 27.7 mMol/L (20.0-31.0); Chloride 108 mMol/L (98-107); Creatinine (Component) 1.8 mg/dL (0.6-1.3); Estimated Creatinine Clearance 46.8 mL/min (>60); Glucose 121 mg/dL (74-106); Osmolality,Calculated 292 (275-295); Phosphorous 3.6 mg/dL (2.4-5.1); Sodium 143 mMol/L (136-145); eGFR 48 See Note
[2025-01-24] MEDS: HEPARIN SOD INJ 1000 UNIT/ML VIAL 10 ML 5000 UNIT INDWELLCAT (19:08)
[2025-01-25] VITALS (16 sets, daily range): BP systolic 96–113; BP diastolic 62–70; PULSE 97–121; RESP 14–28; TEMP 36.1–36.3; O2SAT 92–100
[2025-01-25] MEDS: BACLOFEN 10 MG TABLET 5 MG PO ×3 (05:13→21:18)
[2025-01-25] MEDS: MIDODRINE 5 MG TABLET 10 MG PO ×3 (05:14→21:18)
[2025-01-25] MEDS: MEROPENEM INJ 1,000 MG in SODIUM CHLORIDE 0.9% (Popper) 50 ML 100 MG IV ×3 (05:14→21:15)
[2025-01-25 06:06] LABS: Basophils # (Auto) 0.1 Thou/mm3 (0.0-0.2); Basophils % (Auto) 1 % (0-2.5); Eosinophils # (Auto) 2.8 Thou/mm3 (0.0-0.5); Eosinophils % (Auto) 16 % (0-10); Hematocrit 31.2 % (41.0-53.0); Hemoglobin 9.7 g/dL (13.5-16.0); Immature Granulocytes % (Auto) 1 % (0-0); Lymphocytes # (Auto) 2.1 Thou/mm3 (1.0-4.8); Lymphocytes % (Auto) 12 % (10-50); Mean Corpuscular HGB Conc 31.1 g/dl (31.0-37.0); Mean Corpuscular Volume 93 fL (80-100); Monocytes % (Auto) 6 % (0-12); Neutrophils # (Auto) 11.6 Thou/mm3 (1.8-7.7); Neutrophils % (Auto) 66 % (37-80); Nucleated Red Blood Cell % 0 /100 WBC (0); Platelet Count 562 Thou/mm3 (140-440); RDW Standard Deviation 49.1 fL (35.1-43.9); Red Blood Count 3.35 Miln/mm3 (4.50-5.90); White Blood Count 17.8 Thou/mm3 (3.8-10.6)
[2025-01-25 06:34] LABS: Alanine Aminotransferase 41 U/L (10-49); Albumin, Serum 3.5 gm/dL (3.5-5.0); Albumin/Globulin Ratio 1.1 (1.2-2.2); Alkaline Phosphatase 218 U/L (46-116); Anion Gap 10 (7-16); Aspartate Amino Transferase 32 U/L (0-34); BUN/Creatinine Ratio 19 Ratio (12-20); Bilirubin,Total < 0.2 mg/dL (0.3-1.2); Blood Urea Nitrogen 33 mg/dL (9-23); Calcium 8.7 mg/dL (8.3-10.6); Calcium (Corrected) 9.1 mg/dL (8.5-10.1); Carbon Dioxide 26.1 mMol/L (20.0-31.0); Chloride 108 mMol/L (98-107); Creatinine (Component) 1.7 mg/dL (0.6-1.3); Globulin 3.1 gm/dL (2.3-3.5); Glucose 90 mg/dL (74-106); Magnesium 2.2 mg/dL (1.6-2.6); Osmolality,Calculated 294 (275-295); Phosphorous 3.4 mg/dL (2.4-5.1); Potassium 4.3 mMol/L (3.4-5.1); Sodium 144 mMol/L (136-145); Total Protein 6.6 gm/dL (5.7-8.2); eGFR 51 See Note
[2025-01-25] MEDS: IPRATROPIUM RT 0.5 MG/ 2.5 ML NEBU INH ×4 (07:36→18:50)
[2025-01-25] MEDS: LEVALBUTEROL RT 1.25 MG/0.5 ML NEBU INH ×4 (07:36→18:50)
[2025-01-25] MEDS: ENOXAPARIN SOD INJ 100 MG/ML SYRINGE 60 MG SC ×2 (09:15→20:09)
[2025-01-25] MEDS: VIT B12/Vit C/FA (Nephrovite) TABLET 1 TAB PO (09:16)
[2025-01-25] MEDS: PHENYTOIN 100 MG/4 ML UDC 600 MG GT ×2 (09:16→20:09)
[2025-01-25] MEDS: FLUDROCORTISONE ACETATE 0.1 MG TABLET GT ×2 (09:16→20:12)
[2025-01-25] MEDS: DOXYCYCLINE 100 MG TABLET PO ×2 (09:16→20:12)
[2025-01-25] MEDS: LANSOPRAZOLE 30 MG TAB.RAP.DR GT (09:16)
[2025-01-25] MEDS: MULTIVITAMIN 15 ML UDC PO (09:17)
[2025-01-25] MEDS: levETIRAcetam LIQD 500 MG/5 ML UDC 1000 MG GT ×2 (09:17→20:08)
[2025-01-25] MEDS: Silvasorb Gel 45 ML TUBE TOP (09:18)
--- NOTE | 2025-01-25 13:38 | ESPR_ITS ---
<Statement entered by Dang Dale MD - 01/29/25 12:58> I reviewed above note and agree with findings and plans. I have also personally examined the patient with medicine team and went over assessment and plan with medical team including automotive internet sales manager and resident physician. <Statement entered by Bushra Owusu MD - 01/25/25 15:01> Patient has been bedside. No acute overnight events. Pending ID recommendations regarding abx, based on recommendations further plan and patient disposition will be discussed. I personally saw and examined the patient and discussed the assessment and plan with the entire medicine team, including my attending Bushra Owusu M.D. PGY-2 Disclaimer: Despite multiple revisions, due to the dictation software being used, the document bellow may not be free of grammatical errors including phonetic/typographic errors. However, this does not deter from our commitment to providing health care in the patient's best interest in mind. Documentation for date of: 01/25/25 Subjective Subjective Interval history: No overnight events. Patient seen examined at bedside, appears comfortable. Not in acute distress. Pending ID recommendations. Continuing family discussion regarding long-term placement. Exam Vital Signs Temp Pulse Resp BP Pulse Ox O2 Del Method O2 Flow Rate 97.3 F 111 H 25 H 100/62 100 Mechanical Ventilation 45 01/25/25 12:00 01/25/25 13:07 01/25/25 13:07 01/25/25 12:00 01/25/25 13:07 01/25/25 12:00 01/24/25 16:00 FiO2 40 01/25/25 13:07 Narrative Exam PE: Gen: Chronically ill-appearing. HEENT: NCAT, MMM, anicteric conjunctivae. Tracheostomy to vent. CVS: normal S1 and S2. RRR. No M/R/G. Left-sided central line. Resp: CTA B/L. No rhonchi, rales, crackles or wheezing. Poor lung sounds due to low respiratory effort. Abd: soft, non-tender, non-distended. PEG tube. Nephrostomy tube. Suprapubic Lal cath. MSK: Sacral ulcer with granulation tissue, bandaged. Bilateral lower extremity contractures. Dry flaky skin bilateral lower extremities. Neuro: Flexor posturing to noxious stimuli. Eyes open but does not track. Nonverbal. Objective Labs 01/25/25 04:26 01/25/25 05:47 Labs: Laboratory Results - last 24 hr 01/24/25 01/25/25 01/25/25 17:30 04: 05:47 WBC 17.8 H RBC 3.35 L Hgb 9.7 L Hct 31.2 L MCV 93 MCH 29.0 MCHC 31.1 RDW Std Deviation 49.1 H Plt Count 562 H D Neut % (Auto) 66 Lymph % (Auto) 12 [place] % (Auto) 6 Eos % (Auto) 16 H Baso % (Auto) 1 Neut # (Auto) 11.6 H Lymph # (Auto) 2.1 [place] # (Auto) 1.0 H Eos # (Auto) 2.8 H Baso # (Auto) 0.1 Immature Gran # (Auto) 0.20 H Absolute Nucleated RBC 0.00 Immature Gran % 1 H Nucleated RBC % 0 Sodium 143 144 Potassium 5.0 D 4.3 D Chloride 108 H 108 H Carbon Dioxide 27.7 26.1 Anion Gap 7 10 BUN 31 H 33 H Creatinine 1.8 H 1.7 H Estim Creat Clear Calc 46.8 L 50.0 L eGFR 48 L 51 L BUN/Creatinine Ratio 17 19 Glucose 121 H 90 Calculated Osmolality 292 294 Calcium 8.8 8.7 Corrected Calcium 9.0 9.1 Phosphorus 3.6 3.4 Magnesium 2.2 Total Bilirubin < 0.2 L AST 32 ALT 41 Alkaline Phosphatase 218 H D Total Protein 6.6 Albumin 3.7 D 3.5 Globulin 3.1 Albumin/Globulin Ratio 1.1 L ABG Interpretation ABG results: 01/05/25 19:43 ABG pH 7.39 ABG pCO2 40 ABG pO2 93 ABG HCO3 24 ABG O2 Saturation 98 ABG Base Excess -1 Quality Measures Quality Measures VTE prophylaxis Assessment & Plan Assessment Current Active Medications: Generic Name Dose Route Start Last Admin Trade Name Freq PRN Reason Stop Dose Admin Acetaminophen 650 mg 01/17/25 16:26 01/18/25 18:24 Acetaminophen 325 Mg Tablet PO 02/16/25 16:25 650 mg Q6HR PRN Administration pain and Fever >100.4 Albuterol 2.5 mg 01/07/25 15:17 Albuterol Rt 2.5 Mg/0.5 Ml Nebu INH 02/06/25 14:58 Q6H PRN shortness of breath or wheezing Baclofen 5 mg 01/07/25 22:00 01/25/25 05:13 Baclofen 10 Mg Tablet PO 02/06/25 21:59 5 mg TID KIT Administration Gabapentin 250 Mg/5 0 ea 01/07/25 18:42 01/18/25 08:30 Ml Solution GT 02/06/25 18:41 5 ml Q8HR PRN Administration HICCUPS Dextrose 25 ml 01/05/25 19:11 Dextrose 50%-Water Inj 50 Ml Syringe IV 02/04/25 19:10 Q15MIN PRN BG 50-70 responsive npo pt Dextrose 50 ml 01/05/25 19:11 Dextrose 50%-Water Inj 50 Ml Syringe IV 02/04/25 19:10 Q15MIN PRN BG <50 OR BG <70 & pt unresponsive Doxycycline Hyclate 100 mg 01/23/25 21:00 01/25/25 09:16 Doxycycline 100 Mg Tablet PO 01/30/25 20:59 100 mg BID KIT Administration Enoxaparin Sodium 60 mg 01/24/25 10:40 01/25/25 09:15 Enoxaparin Sod Inj 100 Mg/Ml Syringe 1 mg/kg (60 mg) 02/07/25 10:39 60 mg SC Administration BID [facility] Fludrocortisone Acetate 0.1 mg 01/07/25 21:00 01/25/25 09:16 Fludrocortisone Acetate 0.1 Mg Tablet GT 02/06/25 20:59 0.1 mg BID KIT Administration Glucagon 1 mg 01/05/25 19:11 Glucagon Inj 1 Mg Vial IM Q15MIN PRN BG <70, and no IV access Chlorpromazine HCl 25 mg/ 51 mls @ 102 mls/hr 01/17/25 16:13 01/18/25 08:29 Sodium Chloride IV 02/16/25 16:12 102 mls/hr Q6HR PRN Administration HICCUPS Meropenem 1,000 mg/ Sodium 50 mls @ 100 mls/hr 01/21/25 22:00 01/25/25 05:14 Chloride IV 01/26/25 09:00 100 mls/hr Q8HR KIT Administration Insulin Human Lispro 0 unit 01/06/25 06:00 01/25/25 12:17 Insulin Lispro (Admelog) 1 Unit/0.01 Ml Unit SC 02/05/25 05:59 Not Given Q6HR KIT Protocol Ipratropium [place] 0.5 mg 01/07/25 21:00 01/25/25 13:05 Ipratropium Rt 0.5 Mg/ 2.5 Ml Nebu INH 02/06/25 20:59 0.5 mg QIDRT KIT Administration Lansoprazole 30 mg 01/10/25 09:00 01/25/25 09:16 Lansoprazole 30 Mg Tab.Rap.Dr GT 02/07/25 08:59 30 mg QDAY KIT Administration Levalbuterol HCl 1.25 mg 01/07/25 21:00 01/25/25 13:05 Levalbuterol Rt 1.25 Mg/0.5 Ml Nebu INH 02/06/25 20:59 1.25 mg QIDRT KIT Administration Levetiracetam 1,000 mg 01/14/25 13:45 01/25/25 09:17 Levetiracetam Liqd 500 Mg/5 Ml Udc GT 02/13/25 13:44 1,000 mg BID KIT Administration Midodrine 10 mg 01/21/25 14:00 01/25/25 05:14 Midodrine 5 Mg Tablet PO 02/20/25 13:59 10 mg TID KIT Administration Multivitamins/Minerals 15 ml 01/08/25 09:00 01/25/25 09:17 Multivitamin 15 Ml Udc PO 02/07/25 08:59 15 ml QDAY KIT Administration Ondansetron HCl 4 mg 01/05/25 17:09 Ondansetron Inj 2 Mg/Ml Inj 2 Ml IV 02/04/25 17:08 Q6H PRN NAUSEA OR VOMITING Protocol Phenytoin 600 mg 01/07/25 21:00 01/25/25 09:16 Phenytoin 100 Mg/4 Ml Udc GT 02/06/25 20:59 600 mg BID KIT Administration Sodium Chloride 3 ml 01/07/25 17:55 Sodium Chloride Rt [place] 0.9% 3 Ml Nebu INH 02/06/25 17:54 PRN PRN SOLN Vitamin B Complex/Vit C/Folic Acid 1 tab 01/08/25 09:00 01/25/25 09:16 Vit B12/Vit C/Fa (Nephrovite) Tablet PO 02/07/25 08:59 1 tab QDAY KIT Administration Plan 39-year-old male with past medical history of 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 #Ventilator associated pneumonia?Klebsiella Patient has a protracted clinical course requiring ICU stay, finished multiple courses of antibiotics, was initially positive for Klebsiella pneumonia and Proteus mirabilis on microbiology from 01/05/2025-, sensitive to Zosyn, completed antibiotic treatment, tracheal secretions culture on 01/06/2025 grew Pseudomonas aeruginosa, sensitive to Zosyn, completed 7-day antibiotics with Zosyn, but clinical condition worsened and patient developed sepsis with septic shock requiring IV pressors, was started on meropenem and doxycycline to be continued through 01/26/2025, repeat culture from 01/15/2025 grew ESBL Klebsiella, at this point there is concern for possible colonization too, as patient's condition continues to be stable, despite Klebsiella being resistant to ertapenem. -Plan to continue meropenem and doxycycline through 01/26/2025 -ID recommendations appreciated #Decubitus ulcer #Osteomyelitis #Septic shock, resolved Sacral wound culture grew ESBL Proteus on 01/08/2025 sensitive to Augmentin, ID was consulted recommended IV ertapenem for 6 weeks, ID recommendations regarding IV versus p.o. antibiotics noted. but patient has been having problems with IV access, unable to place PICC line despite multiple attempts by interventional radiology, as patient history of bilateral upper extremity DVT, currently stays on Lovenox twice daily. -Plan to discharge patient on 6 weeks of p.o. 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 Repeat bilateral upper extremity duplex showed thrombus in right cephalic vein, no clear signs of DVT in upper extremity noted but study quality was poor. -Continue Lovenox 60 mg twice daily #Anemia of chronic disease #Acute anemia Patient's hemoglobin was 6.8. Receiving transfusion 1 PRBC . No signs of active bleeding. Posttransfusion H&H improved, hemoglobin currently stable. -Continue to monitor #Adrenal insufficiency, suspected Patient takes 0.1 mg fludrocortisone at twice daily at home, suspect due to history of adrenal sufficiency although not clearly documented. Would explain patient's significant hypotension and continued soft blood pressure. -Resume home meds: Fludrocortisone 0.1 mg GT twice daily #Obstructive uropathy #ELDON on CKD, improving Patient has a nephrostomy tube (placed at [facility]) as well as suprapubic catheter Patient had elevated creatinine above baseline, improving with free water flushes. -Renally dose medications -Avoid nephrotoxic agents #Transaminitis, improving Patient came in initially with AST 814, ALT 1105, ALP 413 Could be due to shock liver in the setting of shock -Continue to monitor #Diabetes mellitus type 2 -Currently on insulin sliding scale, hypoglycemia protocol in place #Seizure, patient history #Anoxic brain injury due to cardiac arrest Patient history as stated. Patient is nonverbal at baseline. -Continue with baclofen, Keppra and phenytoin Diet: Tube feeds DVT ppx: Lovenox GI ppx: Lansoprazole Lines: PIV, left-sided central line, suprapubic catheter, right-sided nephrostomy tube, trach Code status: Full Plan of care discussed with senior resident Dr. Owusu and attending Dr. Dale. James Crespo MD PGY?2
--- NOTE | 2025-01-25 14:59 | PC.SS ---
SS conducted phone contact with the patient?s aunt, Dee Smith , no answer. VM left.
--- NOTE | 2025-01-25 15:00 | PC.SS ---
Rounding: [facility], once established pending outcome familiy meeting may need to be held. SS will remain available for any additional needs.
--- NOTE | 2025-01-25 16:38 | ESPR_ITS ---
Subjective Subjective Interval history: asked to comment. pt moved out of icu. so cx likely of no importance. no pseudomonas noted. organism not s to merrem or ertapenem prior du cx is a superficial swab of a non sterile site almost guaranteed to be pos with a R organism. Exam Vital Signs Temp Pulse Resp BP Pulse Ox O2 Del Method O2 Flow Rate 97.3 F 102 H 19 96/69 99 Mechanical Ventilation 45 01/25/25 16:00 01/25/25 16:00 01/25/25 16:00 01/25/25 16:00 01/25/25 16:00 01/25/25 16:00 01/24/25 16:00 FiO2 40 01/25/25 16:00 Narrative Exam not seen. Objective - Internal Medicine Labs 01/25/25 04:26 01/25/25 05:47 Labs: Laboratory Results - last 24 hr 01/24/25 01/25/25 01/25/25 17:30 04:26 05:47 WBC 17.8 H RBC 3.35 L Hgb 9.7 L Hct 31.2 L MCV 93 MCH 29.0 MCHC 31.1 RDW Std Deviation 49.1 H Plt Count 562 H D Neut % (Auto) 66 Lymph % (Auto) 12 [place] % (Auto) 6 Eos % (Auto) 16 H Baso % (Auto) 1 Neut # (Auto) 11.6 H Lymph # (Auto) 2.1 [place] # (Auto) 1.0 H Eos # (Auto) 2.8 H Baso # (Auto) 0.1 Immature Gran # (Auto) 0.20 H Absolute Nucleated RBC 0.00 Immature Gran % 1 H Nucleated RBC % 0 Sodium 143 144 Potassium 5.0 D 4.3 D Chloride 108 H 108 H Carbon Dioxide 27.7 26.1 Anion Gap 7 10 BUN 31 H 33 H Creatinine 1.8 H 1.7 H Estim Creat Clear Calc 46.8 L 50.0 L eGFR 48 L 51 L BUN/Creatinine Ratio 17 19 Glucose 121 H 90 Calculated Osmolality 292 294 Calcium 8.8 8.7 Corrected Calcium 9.0 9.1 Phosphorus 3.6 3.4 Magnesium 2.2 Total Bilirubin < 0.2 L AST 32 ALT 41 Alkaline Phosphatase 218 H D Total Protein 6.6 Albumin 3.7 D 3.5 Globulin 3.1 Albumin/Globulin Ratio 1.1 L ABG Interpretation ABG results: 01/05/25 19:43 ABG pH 7.39 ABG pCO2 40 ABG pO2 93 ABG HCO3 24 ABG O2 Saturation 98 ABG Base Excess -1 Assessment & Plan A&P Narrative du with osteo in pt with neuro compromise resp failure, chronic if picc fails, then you try a tunnelled cvl. that is what we used to use all the time. groshong or hartley type lines. ok to base rx on swab cx, but remember that abx only kill germs and do not heal wounds. so pressure avoidance is a critical measure. Time Spent With Patient Time: Total time spent is greater than 50% in coordination of care (as documented) at patient's floor/unit and/or counseling patient:
--- NOTE | 2025-01-25 17:21 | PD.IMPROG ---
Documentation for date of: 01/25/25 Subjective Subjective Interval history: No leakage at the PEG site PEG tube working very well Exam Vital Signs Temp Pulse Resp BP Pulse Ox O2 Del Method O2 Flow Rate 97.3 F 100 16 96/69 100 Mechanical Ventilation 45 01/25/25 16:00 01/25/25 16:46 01/25/25 16:46 01/25/25 16:00 01/25/25 16:46 01/25/25 16:00 01/24/25 16:00 FiO2 40 01/25/25 16:46 Objective Labs 01/25/25 04:26 01/25/25 05:47 Labs: Laboratory Results - last 24 hr 01/24/25 01/25/25 01/25/25 17:30 04: 05:47 WBC 17.8 H RBC 3.35 L Hgb 9.7 L Hct 31.2 L MCV 93 MCH 29.0 MCHC 31.1 RDW Std Deviation 49.1 H Plt Count 562 H D Neut % (Auto) 66 Lymph % (Auto) 12 [place] % (Auto) 6 Eos % (Auto) 16 H Baso % (Auto) 1 Neut # (Auto) 11.6 H Lymph # (Auto) 2.1 [place] # (Auto) 1.0 H Eos # (Auto) 2.8 H Baso # (Auto) 0.1 Immature Gran # (Auto) 0.20 H Absolute Nucleated RBC 0.00 Immature Gran % 1 H Nucleated RBC % 0 Sodium 143 144 Potassium 5.0 D 4.3 D Chloride 108 H 108 H Carbon Dioxide 27.7 26.1 Anion Gap 7 10 BUN 31 H 33 H Creatinine 1.8 H 1.7 H Estim Creat Clear Calc 46.8 L 50.0 L eGFR 48 L 51 L BUN/Creatinine Ratio 17 19 Glucose 121 H 90 Calculated Osmolality 292 294 Calcium 8.8 8.7 Corrected Calcium 9.0 9.1 Phosphorus 3.6 3.4 Magnesium 2.2 Total Bilirubin < 0.2 L AST 32 ALT 41 Alkaline Phosphatase 218 H D Total Protein 6.6 Albumin 3.7 D 3.5 Globulin 3.1 Albumin/Globulin Ratio 1.1 L Impressions Impression: # No PEG tube issues at the moment Continue enteral hyperalimentation ABG Interpretation ABG results: 01/05/25 19:43 ABG pH 7.39 ABG pCO2 40 ABG pO2 93 ABG HCO3 24 ABG O2 Saturation 98 ABG Base Excess -1 Assessment & Plan A&P Narrative du with osteo in pt with neuro compromise resp failure, chronic if picc fails, then you try a tunnelled cvl. that is what we used to use all the time. groshong or hartley type lines. ok to base rx on swab cx, but remember that abx only kill germs and do not heal wounds. so pressure avoidance is a critical measure. Time Spent With Patient Time: Total time spent is greater than 50% in coordination of care (as documented) at patient's floor/unit and/or counseling patient:
[2025-01-26] VITALS (19 sets, daily range): BP systolic 85–108; BP diastolic 57–73; PULSE 90–114; RESP 14–22; TEMP 36.2–36.3; O2SAT 92–100; BMI 22.2
--- NOTE | 2025-01-26 04:56 | PC.NURSE ---
Contacted hospitalist Dr. Aguilar regarding patient's scheduled medication of baclofen and midodrine. Mica recalled patient's latest vitals to MD and per me, go ahead and hold both the midodrin and baclofen due to the patient having a procedure today is required to be npo.
[2025-01-26] MEDS: MEROPENEM INJ 1,000 MG in SODIUM CHLORIDE 0.9% (Popper) 50 ML 100 MG IV (05:04)
[2025-01-26 05:56] LABS: Basophils # (Auto) 0.1 Thou/mm3 (0.0-0.2); Basophils % (Auto) 1 % (0-2.5); Eosinophils # (Auto) 2.7 Thou/mm3 (0.0-0.5); Eosinophils % (Auto) 18 % (0-10); Hematocrit 30.3 % (41.0-53.0); Hemoglobin 9.7 g/dL (13.5-16.0); Immature Granulocytes % (Auto) 1 % (0-0); Immature Granulocytes Auto 0.17 Thou/mm3 (0.00-0.00); Lymphocytes # (Auto) 2.2 Thou/mm3 (1.0-4.8); Lymphocytes % (Auto) 15 % (10-50); Mean Corpuscular Hemoglobin 29.5 pg (25.0-35.0); Mean Corpuscular Volume 92 fL (80-100); Monocytes # (Auto) 0.9 Thou/mm3 (0.0-0.8); Monocytes % (Auto) 6 % (0-12); Neutrophils # (Auto) 8.9 Thou/mm3 (1.8-7.7); Neutrophils % (Auto) 59 % (37-80); Nucleated Red Blood Cell % 0 /100 WBC (0); Platelet Count 579 Thou/mm3 (140-440); RDW Standard Deviation 50.1 fL (35.1-43.9); Red Blood Count 3.29 Miln/mm3 (4.50-5.90)
[2025-01-26] MEDS: MIDODRINE 5 MG TABLET 10 MG PO ×3 (06:08→21:02)
[2025-01-26 06:22] LABS: Alanine Aminotransferase 36 U/L (10-49); Albumin, Serum 3.6 gm/dL (3.5-5.0); Albumin/Globulin Ratio 1.2 (1.2-2.2); Alkaline Phosphatase 226 U/L (46-116); Anion Gap 8 (7-16); Aspartate Amino Transferase 25 U/L (0-34); BUN/Creatinine Ratio 19 Ratio (12-20); Bilirubin,Total < 0.2 mg/dL (0.3-1.2); Blood Urea Nitrogen 33 mg/dL (9-23); Calcium 8.7 mg/dL (8.3-10.6); Carbon Dioxide 26.2 mMol/L (20.0-31.0); Chloride 108 mMol/L (98-107); Creatinine (Component) 1.7 mg/dL (0.6-1.3); Estimated Creatinine Clearance 50.7 mL/min (>60); Globulin 2.9 gm/dL (2.3-3.5); Glucose 68 mg/dL (74-106); Magnesium 2.3 mg/dL (1.6-2.6); Osmolality,Calculated 288 (275-295); Phosphorous 3.9 mg/dL (2.4-5.1); Potassium 3.9 mMol/L (3.4-5.1); Sodium 142 mMol/L (136-145); Total Protein 6.5 gm/dL (5.7-8.2); eGFR 51 See Note
[2025-01-26] MEDS: LEVALBUTEROL RT 1.25 MG/0.5 ML NEBU INH ×4 (06:57→21:41)
[2025-01-26] MEDS: IPRATROPIUM RT 0.5 MG/ 2.5 ML NEBU INH ×4 (06:57→21:41)
[2025-01-26] MEDS: DEXTROSE 50%-WATER INJ 50 ML SYRINGE IV (07:05)
[2025-01-26 08:20] LABS: Prothrombin Time 11.4 Seconds (9.0-12.2)
[2025-01-26] MEDS: levETIRAcetam LIQD 500 MG/5 ML UDC 1000 MG GT ×2 (09:13→21:00)
[2025-01-26] MEDS: MULTIVITAMIN 15 ML UDC PO (09:13)
[2025-01-26] MEDS: VIT B12/Vit C/FA (Nephrovite) TABLET 1 TAB PO (09:13)
[2025-01-26] MEDS: PHENYTOIN 100 MG/4 ML UDC 600 MG GT ×2 (09:13→21:00)
[2025-01-26] MEDS: FLUDROCORTISONE ACETATE 0.1 MG TABLET GT ×2 (09:14→20:59)
[2025-01-26] MEDS: Silvasorb Gel 45 ML TUBE TOP (09:14)
[2025-01-26] MEDS: LANSOPRAZOLE 30 MG TAB.RAP.DR GT (09:14)
[2025-01-26] MEDS: DOXYCYCLINE 100 MG TABLET PO ×2 (09:14→20:59)
--- NOTE | 2025-01-26 09:24 | XR_ITS ---
Examination: Central line placement, triple lumen catheter. Ultrasound-guided needle placement right internal jugular vein. Fluoroscopy AP Chest, portable single view Exam date and time: January 26, 2025 0918 hours INDICATIONS: Need for long-term intravenous antibiotic therapy for pneumonia. Informed consent provided Technique: A timeout was completed, verifying correct patient, procedure, site, positioning, and special equipment if applicable The patient was placed in a dependent position appropriate for central line placement based on the vein to be cannulated. The patient's right neck was prepped and draped in sterile fashion. Maximum Sterile Barrier Technique used including cap, mask, sterile gown, sterile gloves, and sterile full body drape. If ultrasound technique used: sterile gel and sterile probe covers. Hand Hygiene performed using proper scrub, soap and water, or alcohol-based hand rub. Site right portable apparatus utilized to confirm patency of the right internal jugular vein Utilizing ultrasonographic guidance successful 21-gauge needle puncture into the right internal jugular vein Ultrasound images were recorded and stored. Successful micropuncture with a 21-gauge needle was performed. 0.18 wire guide was introduced into the IVC under fluoroscopic guidance. The wires is then exchanged for a 0.25 J-wire guide placed in the vena cava. The triple lumen catheter dilator is introduced, followed by the catheter in the SVC in proper position under fluoroscopic guidance. Successful aspiration of blood and flushing with heparinized saline is then performed in the 3 venous limbs. The catheter is sutured in place to the skin and a sterile dressing applied. Perfusion to the extremity distal to the point of catheter insertion was checked and found to be adequate The attending radiologist was present for the entire procedure Estimated blood loss1 cc. Findings: Under fluoroscopy, the tip of the catheter is in good position in the vena cava. Portable chest x-ray, post line placement, as ordered. Impression: Successful ultrasound-guided needle placement right internal jugular vein. Successful placement of triple lumen catheter central line, percutaneous. Fluoroscopy 0.3 minute radiation dose 0.94 milligray 1 spot fluoroscopic chest film. AP portable chest completion procedure demonstrates satisfactory position central line tip SVC. May use central line.
--- NOTE | 2025-01-26 09:32 | PC.SS ---
SS received a call from Dee Smith, pts aunt in regards to plan. Per Dee she receieved a call in regards to consent for PICCLINE. Dee does not understand why pt cannot return to [facility] if he does not get the PICCLINE. Dee stated she wants to be updated if it is unsuccessful. SS expressed understanding and informed her SS will call her as soon as an update is available. Per Dee, she refuses for pt to lose his spot at [facility] as it took them 7 years to get him there.
[2025-01-26] MEDS: HEPARIN SOD LOCK SYR 100 UNIT/ML 500 UNIT IV (10:24)
[2025-01-26] MEDS: LIDOCAINE INJ PF 1% 30 ML VIAL 6 ML INFL (10:25)
--- NOTE | 2025-01-26 11:06 | PC.NURSE ---
hand off report given to becca oliveira. patient tolerated well. tegaderm, stat lock and biopatch applied to site. dressing is clean dry and intact. patient transported via gurney with respiratory therapist. dressing assessed with becca oliveira. dressing clean dry and intact.
--- NOTE | 2025-01-26 13:24 | ESPR_ITS ---
<Statement entered by Dang Dale MD - 02/02/25 13:47> I reviewed above note and agree with findings and plans. I have also personally examined the patient with medicine team and went over assessment and plan with medical team including education intern and resident physician. <Statement entered by Bushra Owusu MD - 01/26/25 13:34> I discussed with and supervised the education intern physician who took care of this patient. I personally saw and examined the patient and discussed the assessment and plan with the entire medicine team, including my attending , I agree with the assessment and plan as documented below Bushra Owusu M.D. PGY-2 Disclaimer: Despite multiple revisions, due to the dictation software being used, the document bellow may not be free of grammatical errors including phonetic/typographic errors. However, this does not deter from our commitment to providing health care in the patient's best interest in mind. Documentation for date of: 01/26/25 Subjective Subjective Interval history: No overnight events. Patient seen and examined, resting comfortably. Does not appear to be in any acute distress. Patient received tunneled central line for long-term IV antibiotics. Patient initiated on ertapenem to complete course for osteomyelitis treatment. Exam Vital Signs Temp Pulse Resp BP Pulse Ox O2 Del Method O2 Flow Rate 97.2 F 100 16 94/59 L 96 Mechanical Ventilation 45 01/26/25 08:00 01/26/25 11:44 01/26/25 11:08 01/26/25 10:34 01/26/25 11:44 01/26/25 10:34 01/24/25 16:00 FiO2 40 01/26/25 12:00 Narrative Exam PE: Gen: Chronically ill-appearing. HEENT: NCAT, MMM, anicteric conjunctivae. Tracheostomy to vent. CVS: normal S1 and S2. RRR. No M/R/G. Left-sided central line. Resp: CTA B/L. No rhonchi, rales, crackles or wheezing. Poor lung sounds due to low respiratory effort. Abd: soft, non-tender, non-distended. PEG tube. Nephrostomy tube. Suprapubic Lal cath. MSK: Sacral ulcer with granulation tissue, bandaged. Bilateral lower extremity contractures. Dry flaky skin bilateral lower extremities. Neuro: Flexor posturing to noxious stimuli. Eyes open but does not track. Nonverbal. Objective Labs 01/26/25 04:45 01/26/25 04:45 Labs: Laboratory Results - last 24 hr 01/26/25 04:45 WBC 15.0 H RBC 3.29 L Hgb 9.7 L Hct 30.3 L MCV 92 MCH 29.5 MCHC 32.0 RDW Std Deviation 50.1 H Plt Count 579 H Neut % (Auto) 59 Lymph % (Auto) 15 [place] % (Auto) 6 Eos % (Auto) 18 H Baso % (Auto) 1 Neut # (Auto) 8.9 H Lymph # (Auto) 2.2 [place] # (Auto) 0.9 H Eos # (Auto) 2.7 H Baso # (Auto) 0.1 Immature Gran # (Auto) 0.17 H Absolute Nucleated RBC 0.00 Immature Gran % 1 H Nucleated RBC % 0 PT 11.4 INR 1.0 APTT 39.0 H Sodium 142 Potassium 3.9 Chloride 108 H Carbon Dioxide 26.2 Anion Gap 8 BUN 33 H Creatinine 1.7 H Estim Creat Clear Calc 50.7 L eGFR 51 L BUN/Creatinine Ratio 19 Glucose 68 L Calculated Osmolality 288 Calcium 8.7 Corrected Calcium 9.0 Phosphorus 3.9 Magnesium 2.3 Total Bilirubin < 0.2 L AST 25 ALT 36 Alkaline Phosphatase 226 H Total Protein 6.5 Albumin 3.6 Globulin 2.9 Albumin/Globulin Ratio 1.2 ABG Interpretation ABG results: 01/05/25 19:43 ABG pH 7.39 ABG pCO2 40 ABG pO2 93 ABG HCO3 24 ABG O2 Saturation 98 ABG Base Excess -1 Quality Measures Quality Measures VTE prophylaxis Assessment & Plan Assessment Current Active Medications: Generic Name Dose Route Start Last Admin Trade Name Freq PRN Reason Stop Dose Admin Acetaminophen 650 mg 01/17/25 16:26 01/18/25 18:24 Acetaminophen 325 Mg Tablet PO 02/16/25 16:25 650 mg Q6HR PRN Administration pain and Fever >100.4 Albuterol 2.5 mg 01/07/25 15:17 Albuterol Rt 2.5 Mg/0.5 Ml Nebu INH 02/06/25 14:58 Q6H PRN shortness of breath or wheezing Baclofen 5 mg 01/07/25 22:00 01/26/25 05:01 Baclofen 10 Mg Tablet PO 02/06/25 21:59 Not Given TID [facility] Gabapentin 250 Mg/5 0 ea 01/07/25 18:42 01/18/25 08:30 Ml Solution GT 02/06/25 18:41 5 ml Q8HR PRN Administration HICCUPS Dextrose 25 ml 01/05/25 19:11 Dextrose 50%-Water Inj 50 Ml Syringe IV 02/04/25 19:10 Q15MIN PRN BG 50-70 responsive npo pt Dextrose 50 ml 01/05/25 19:11 Dextrose 50%-Water Inj 50 Ml Syringe IV 02/04/25 19:10 Q15MIN PRN BG <50 OR BG <70 & pt unresponsive Doxycycline Hyclate 100 mg 01/23/25 21:00 01/26/25 09:14 Doxycycline 100 Mg Tablet PO 01/30/25 20:59 100 mg BID KIT Administration Enoxaparin Sodium 60 mg 01/24/25 10:40 01/25/25 20:09 Enoxaparin Sod Inj 100 Mg/Ml Syringe 1 mg/kg (60 mg) 02/07/25 10:39 60 mg SC Administration BID [facility] Fludrocortisone Acetate 0.1 mg 01/07/25 21:00 01/26/25 09:14 Fludrocortisone Acetate 0.1 Mg Tablet GT 02/06/25 20:59 0.1 mg BID [facility] Administration Glucagon 1 mg 01/05/25 19:11 Glucagon Inj 1 Mg Vial IM Q15MIN PRN BG <70, and no IV access Chlorpromazine HCl 25 mg/ 51 mls @ 102 mls/hr 01/17/25 16:13 01/18/25 08:29 Sodium Chloride IV 02/16/25 16:12 102 mls/hr Q6HR PRN Administration HICCUPS Ertapenem 1,000 mg/ Sodium 50 mls @ 100 mls/hr 01/26/25 13:30 Chloride IV 02/02/25 13:29 QDAY [facility] Insulin Human Lispro 0 unit 01/06/25 06:00 01/26/25 11:51 Insulin Lispro (Admelog) 1 Unit/0.01 Ml Unit SC 02/05/25 05:59 Not Given Q6HR [facility] Protocol Ipratropium [place] 0.5 mg 01/07/25 21:00 01/26/25 11:07 Ipratropium Rt 0.5 Mg/ 2.5 Ml Nebu INH 02/06/25 20:59 0.5 mg QIDRT KIT Administration Lansoprazole 30 mg 01/10/25 09:00 01/26/25 09:14 Lansoprazole 30 Mg Tab. GT 02/07/25 08:59 30 mg QDAY KIT Administration Levalbuterol HCl 1.25 mg 01/07/25 21:00 01/26/25 11:07 Levalbuterol Rt 1.25 Mg/0.5 Ml Nebu INH 02/06/25 20:59 1.25 mg QIDRT KIT Administration Levetiracetam 1,000 mg 01/14/25 13:45 01/26/25 09:13 Levetiracetam Liqd 500 Mg/5 Ml [facility] 02/13/25 13:44 1,000 mg BID KIT Administration Midodrine 10 mg 01/21/25 14:00 01/26/25 06:08 Midodrine 5 Mg Tablet PO 02/20/25 13:59 10 mg TID KIT Administration Multivitamins/Minerals 15 ml 01/08/25 09:00 01/26/25 09:13 Multivitamin 15 Ml Udc PO 02/07/25 08:59 15 ml QDAY KIT Administration Ondansetron HCl 4 mg 01/05/25 17:09 Ondansetron Inj 2 Mg/Ml Inj 2 Ml IV 02/04/25 17:08 Q6H PRN NAUSEA OR VOMITING Protocol Phenytoin 600 mg 01/07/25 21:00 01/26/25 09:13 Phenytoin 100 Mg/4 Ml [facility] 02/06/25 20:59 600 mg BID KIT Administration Sodium Chloride 3 ml 01/07/25 17:55 Sodium Chloride Rt Lala 0.9% 3 Ml Nebu INH 02/06/25 17:54 PRN PRN SOLN Vitamin B Complex/Vit C/Folic Acid 1 tab 01/08/25 09:00 01/26/25 09:13 Vit B12/Vit C/Fa (Nephrovite) Tablet PO 02/07/25 08:59 1 tab QDAY KIT Administration Plan 39-year-old male with past medical history of 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 #Decubitus ulcer #Osteomyelitis #Septic shock, resolved Sacral wound culture grew ESBL Proteus on 01/08/2025 sensitive to Augmentin, ID was consulted recommended IV ertapenem for 6 weeks, ID recommendations regarding IV versus p.o. antibiotics noted. but patient has been having problems with IV access, unable to place PICC line despite multiple attempts by interventional radiology, as patient history of bilateral upper extremity DVT, currently stays on Lovenox twice daily. Patient had a tunneled central line placed successfully for long-term IV antibiotics. -Plan to treat with IV ertapenem and p.o. doxycycline for complete course of 6 weeks, completed 02/22/2025 -ID recommendations appreciated #Ventilator associated pneumonia?Klebsiella, treatment complete Patient has a protracted clinical course requiring ICU stay, finished multiple courses of antibiotics, was initially positive for Klebsiella pneumonia and Proteus mirabilis on microbiology from 01/05/2025-, sensitive to Zosyn, completed antibiotic treatment, tracheal secretions culture on 01/06/2025 grew Pseudomonas aeruginosa, sensitive to Zosyn, completed 7-day antibiotics with Zosyn, but clinical condition worsened and patient developed sepsis with septic shock requiring IV pressors, was started on meropenem and doxycycline to be continued through 01/26/2025, repeat culture from 01/15/2025 grew ESBL Klebsiella, at this point there is concern for possible colonization too, as patient's condition continues to be stable, despite Klebsiella being resistant to ertapenem. -Patient completed treatment with meropenem and doxycycline. #History of bilateral upper extremity DVT #History of factor V Leyden deficiency Patient with history of bilateral upper extremity DVT history of factor V Leyden deficiency, is on long-term anticoagulation Lovenox 60 twice daily. Repeat bilateral upper extremity duplex showed thrombus in right cephalic vein, no clear signs of DVT in upper extremity noted but study quality was poor. -Continue Lovenox 60 mg twice daily #Anemia of chronic disease #Acute anemia Patient's hemoglobin was 6.8. Receiving transfusion 1 PRBC . No signs of active bleeding. Posttransfusion H&H improved, hemoglobin currently stable. -Continue to monitor #Adrenal insufficiency, suspected Patient takes 0.1 mg fludrocortisone at twice daily at home, suspect due to history of adrenal sufficiency although not clearly documented. Would explain patient's significant hypotension and continued soft blood pressure. -Resume home meds: Fludrocortisone 0.1 mg GT twice daily #Obstructive uropathy #ELDON on CKD, improving Patient has a nephrostomy tube (placed at [facility]) as well as suprapubic catheter Patient had elevated creatinine above baseline, improving with free water flushes. -Renally dose medications -Avoid nephrotoxic agents #Transaminitis, improving Patient came in initially with AST 814, ALT 1105, ALP 413 Could be due to shock liver in the setting of shock -Continue to monitor #Diabetes mellitus type 2 -Currently on insulin sliding scale, hypoglycemia protocol in place #Seizure, patient history #Anoxic brain injury due to cardiac arrest Patient history as stated. Patient is nonverbal at baseline. -Continue with baclofen, Keppra and phenytoin Diet: Tube feeds DVT ppx: Lovenox GI ppx: Lansoprazole Lines: PIV, left-sided central line, suprapubic catheter, right-sided nephrostomy tube, trach Code status: Full Plan of care discussed with senior resident Dr. Owusu and attending Dr. Dale. James Crespo MD PGY?2
[2025-01-26] MEDS: BACLOFEN 10 MG TABLET 5 MG PO ×2 (13:31→21:01)
[2025-01-26] MEDS: ERTAPENEM INJ 1,000 MG in SODIUM CHLORIDE 0.9% (Popper) 50 ML 100 MG IV (13:46)
--- NOTE | 2025-01-26 15:17 | PC.SS ---
SS conducted phone contact with the patient?s aunt, Dee Smith , no answer, VM left. (SS wanted to inquire if they would be open to pt going to [facility].) Will re-attempt to speak to her tomorrow.
[2025-01-26] MEDS: ENOXAPARIN SOD INJ 100 MG/ML SYRINGE 60 MG SC (20:59)
[2025-01-27] VITALS (15 sets, daily range): BP systolic 92–130; BP diastolic 64–89; PULSE 89–125; RESP 8–23; TEMP 35.8–36.4; O2SAT 97–100; BMI 22.2
[2025-01-27] MEDS: BACLOFEN 10 MG TABLET 5 MG PO ×3 (05:12→21:05)
[2025-01-27] MEDS: MIDODRINE 5 MG TABLET 10 MG PO ×2 (05:13→21:05)
[2025-01-27] MEDS: IPRATROPIUM RT 0.5 MG/ 2.5 ML NEBU INH ×2 (07:14→21:22)
[2025-01-27] MEDS: LEVALBUTEROL RT 1.25 MG/0.5 ML NEBU INH ×2 (07:14→21:22)
[2025-01-27 08:35] LABS: Basophils # (Auto) 0.1 Thou/mm3 (0.0-0.2); Basophils % (Auto) 1 % (0-2.5); Eosinophils # (Auto) 2.7 Thou/mm3 (0.0-0.5); Eosinophils % (Auto) 15 % (0-10); Hematocrit 32.2 % (41.0-53.0); Hemoglobin 10.2 g/dL (13.5-16.0); Immature Granulocytes % (Auto) 1 % (0-0); Immature Granulocytes Auto 0.17 Thou/mm3 (0.00-0.00); Lymphocytes # (Auto) 1.9 Thou/mm3 (1.0-4.8); Lymphocytes % (Auto) 11 % (10-50); Mean Corpuscular HGB Conc 31.7 g/dl (31.0-37.0); Mean Corpuscular Volume 95 fL (80-100); Monocytes # (Auto) 0.9 Thou/mm3 (0.0-0.8); Monocytes % (Auto) 5 % (0-12); Neutrophils # (Auto) 11.8 Thou/mm3 (1.8-7.7); Neutrophils % (Auto) 67 % (37-80); Nucleated Red Blood Cell % 0 /100 WBC (0); Platelet Count 611 Thou/mm3 (140-440); RDW Standard Deviation 52.4 fL (35.1-43.9); White Blood Count 17.6 Thou/mm3 (3.8-10.6)
[2025-01-27 08:51] LABS: Alanine Aminotransferase 36 U/L (10-49); Albumin, Serum 3.5 gm/dL (3.5-5.0); Albumin/Globulin Ratio 1.1 (1.2-2.2); Alkaline Phosphatase 248 U/L (46-116); Anion Gap 10 (7-16); Aspartate Amino Transferase 23 U/L (0-34); BUN/Creatinine Ratio 20 Ratio (12-20); Bilirubin,Total < 0.2 mg/dL (0.3-1.2); Blood Urea Nitrogen 32 mg/dL (9-23); Calcium 8.8 mg/dL (8.3-10.6); Calcium (Corrected) 9.2 mg/dL (8.5-10.1); Carbon Dioxide 23.1 mMol/L (20.0-31.0); Chloride 108 mMol/L (98-107); Creatinine (Component) 1.6 mg/dL (0.6-1.3); Estimated Creatinine Clearance 53.9 mL/min (>60); Globulin 3.1 gm/dL (2.3-3.5); Glucose 151 mg/dL (74-106); Osmolality,Calculated 291 (275-295); Potassium 4.1 mMol/L (3.4-5.1); Sodium 141 mMol/L (136-145); Total Protein 6.6 gm/dL (5.7-8.2); eGFR 55 See Note
--- NOTE | 2025-01-27 09:21 | PC.SS ---
Addendum entered by MARIO Silveira 01/27/25 17:22: Received call from bed side nurse regarding d/c plan as patient has DC orders for today. Notified nurse what SS notes informed regarding pending review by medical instrument cable fabricator at the [facility], nurse verbalized understanding. Addendum entered by Courtney Claire 01/27/25 15:17: SS spoke to [facility] who is worker of the Day. She states their medical instrument cable fabricator, Dr. Scott needs to review request and they will get back to me by tomorrow. Patient is medically ready for d/c. He will d/c to our subacute if approved to complete his required i.v. medication duration. Original Note: Follow up note: Patient has central line and will need i.v. antibiotics until February 22. SS contacted [facility] at subacute and [facility] at subacute to verify if they can accommodate patient for a short period of time and then transfer him back to [facility]. [facility] has agreed to accept. On site evalutation to occur today. SS [place] [facility] for patient's aunt, Dee. Pending discussion and patient is ready for d/c.
[2025-01-27] MEDS: levETIRAcetam LIQD 500 MG/5 ML UDC 1000 MG GT ×2 (09:24→20:58)
[2025-01-27] MEDS: PHENYTOIN 100 MG/4 ML UDC 600 MG GT ×2 (09:25→20:57)
[2025-01-27] MEDS: MULTIVITAMIN 15 ML UDC PO (09:25)
[2025-01-27] MEDS: ENOXAPARIN SOD INJ 100 MG/ML SYRINGE 60 MG SC ×2 (09:25→20:57)
[2025-01-27] MEDS: ERTAPENEM INJ 1,000 MG in SODIUM CHLORIDE 0.9% (Popper) 50 ML 100 MG IV (09:26)
[2025-01-27] MEDS: LANSOPRAZOLE 30 MG TAB.RAP.DR GT (09:26)
[2025-01-27] MEDS: FLUDROCORTISONE ACETATE 0.1 MG TABLET GT ×2 (09:26→20:58)
[2025-01-27] MEDS: VIT B12/Vit C/FA (Nephrovite) TABLET 1 TAB PO (09:26)
[2025-01-27] MEDS: DOXYCYCLINE 100 MG TABLET PO ×2 (09:27→20:58)
[2025-01-27] MEDS: Silvasorb Gel 45 ML TUBE TOP (09:27)
[2025-01-27 13:28] LABS: Path Review Blood Smear Sent to Pathologist
--- NOTE | 2025-01-27 14:15 | ESDS_ITS ---
<Statement entered by Dang Dale MD - 02/02/25 13:48> I reviewed above note and agree with findings and plans. I have also personally examined the patient with medicine team and went over assessment and plan with medical team including architect intern and resident physician. <Statement entered by James Crespo MD - 01/29/25 16:16> Patient is initially scheduled to be discharged on 01/27/2025. Patient discharge was delayed. Attempts were made to discharge the patient on the following days. Discharge was delayed until 01/29. Planned Discharge Date 01/27/25 DS: Providers Provider Date of admission: 01/05/25 17:09 Primary care physician: Gerri Bentley MD Admitting Provider: Leydi Rojas MD Attending Provider on Admission: Dang Dale MD Consults: 01/06/25 02:28 Referral Wound Care Stat Comment: SNF PT. MULTIPLE WOUNDS, E.G. STAGE 4 TO COCCYX 01/06/25 07:24 Consult to Infectious Diseases Stat Comment: Consulting Provider: Imtiaz Rainey 01/06/25 08:52 Referral Nutritional Services Routine Comment: Start tube feeding please as he was on per records 01/18/25 10:21 Consult to Gastroenterology Routine Comment: Consulting Provider: Pradip Salazar 01/18/25 10:36 Consult to General Surgery Routine Comment: Consulting Provider: Marichuy Rodrgiuez 01/23/25 15:03 Consult to Infectious Diseases Routine Comment: Antibiotics for osteomyelitis Consulting Provider: Imtiaz Rainey Attending Provider on DC: Dang Dale MD Discharging Provider: James Crespo MD DS: Diagnosis Problem List Completed Was Problem List Reviewed/Reconciled?: Yes Hospital Course Hospital Course Hospital course: 39-year-old male with a past medical history of 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, status post tracheostomy, mechanical ventilation, PEG tube, suprapubic catheter, right nephrostomy tube due to obstructive uropathy, and bilateral upper extremity DVT, [facility] due to tachycardia, hypotension, and fever, admitted for sepsis due to osteomyelitis. Patient complicated hospital course with multiple rounds of septic shock requiring pressors and ICU support, multiple infections including osteomyelitis and pneumonia. Patient received appropriate treatment for pneumonia, infectious disease was consulted for management of osteomyelitis. Patient unable to get PICC line placed due to bilateral upper extremity DVTs, had tunneled central line placed. Patient vitals stable off of pressors and IV fluid support. Patient cleared for discharge from infectious disease perspective. Patient medically stable and cleared for discharge. Discharge plan: You have been started on the following medications: -Ertapenem 1 g IV daily until 02/22/2025 -Doxycycline 100 mg via G-tube twice daily until 02/22/2025 -Eliquis 5 mg via G-tube twice daily The following medications have been STOPPED: - Lovenox, changed to Eliquis Please continue taking all other medications as previously prescribed. Please follow-up with your PCP within 1-2 weeks. Please continue to participate wound care, avoid excessive pressure to sacral ulcer. Return to ED if you develop new or worsening symptoms. Diagnoses: #Decubitus ulcer #Osteomyelitis #Septic shock, resolved #Ventilator associated pneumonia?Klebsiella, treatment complete #History of bilateral upper extremity DVT #History of factor V Leyden deficiency #Anemia of chronic disease #Acute anemia #Adrenal insufficiency, suspected #Obstructive uropathy #ELDON on CKD, improving #Transaminitis, improving #Diabetes mellitus type 2 #Seizure, patient history #Anoxic brain injury due to cardiac arrest Plan of care discussed with senior resident Dr. Owusu and attending Dr. Dale. James Crespo MD PGY?2 Status at Discharge Overall status at discharge: patient is progressing back to baseline Time Spent with Patient Time attestation: Total time spent providing and/or coordinating discharge services: Time spent: Greater than 30 minutes Exam Vital Signs Temp Pulse Resp BP Pulse Ox O2 Del Method O2 Flow Rate 97.2 F 89 19 114/79 99 Mechanical Ventilation 45 01/27/25 08:00 01/27/25 12:20 01/27/25 08:00 01/27/25 08:00 01/27/25 12:20 01/27/25 08:00 01/27/25 08:00 FiO2 40 01/27/25 12:20 Narrative Exam PE: Gen: Chronically ill-appearing. HEENT: NCAT, MMM, anicteric conjunctivae. Tracheostomy to vent. CVS: normal S1 and S2. RRR. No M/R/G. Left-sided central line. Resp: CTA B/L. No rhonchi, rales, crackles or wheezing. Poor lung sounds due to low respiratory effort. Abd: soft, non-tender, non-distended. PEG tube. Nephrostomy tube. Suprapubic Lal cath. MSK: Sacral ulcer with granulation tissue, bandaged. Bilateral lower extremity contractures. Dry flaky skin bilateral lower extremities. Neuro: Flexor posturing to noxious stimuli. Eyes open but does not track. Nonverbal. Discharge Plan Plan Patient Disposition: Xfer Skilled Nsg Fac (SNF) Patient condition on transfer: Stable Care Plan Goals: You have been started on the following medications: -Zosyn 3.375 g IV every 6 hours until 02/22/2025 -Doxycycline 100 mg via G-tube twice daily until 02/22/2025 -Eliquis 5 mg via G-tube twice daily Central line to be removed after last dose of antibiotics on 02/22/2025 The following medications have been STOPPED: - Lovenox, changed to Eliquis Please continue taking all other medications as previously prescribed. Please follow-up with your PCP within 1-2 weeks. Please continue to participate wound care, avoid excessive pressure to sacral ulcer. Return to ED if you develop new or worsening symptoms. Prescriptions/Referrals Prescriptions/Med Rec: New doxycycline hyclate 100 mg tablet 100 mg feeding tube BID 26 Days Qty: 52 0RF Eliquis 5 mg tablet 5 mg feeding tube BID 30 Days Qty: 60 0RF Zosyn in dextrose (iso-osm) 3.375 gram/50 mL piggyback 3.375 g IV Q6H 25 Days Continued phenytoin 125 mg/5 mL suspension 600 mg G-tube BID fluocinonide 0.05 % solution 1 applic TOPICAL .qshift Rx Instructions: apply to face topically pantoprazole [Protonix] [address] for susp in packet 40 mg PO QDAY Pro-Stat Sugar Free 15-100 gram-kcal/30 mL liquid 1 ea PO BID chlorhexidine gluconate 0.12 % mouthwash 15 ml PO BID Rx Instructions: by mouth, first swab mouth with Chlorhexidine gluconate, then suction rinse by swabbing with water, then suction ipratropium-albuterol 0.5 mg-3 mg(2.5 mg base)/3 mL solution for nebulization 3 ml INHALATION QID Valtoco 10 mg/spray (0.1 mL) spray,non-aerosol 10 mg intranasal PRN Rx Instructions: 1 application in nostril as needed for seizure activity lasting longer than 1 minute, administer 1st dose in 1 nostril after 1 min of seizure activity, wait 1 minute - if seizure continues after 1st dose, administer second dose Multivitamin And Mineral oral liquid 15 mL liquid 15 ml G-tube QDAY Rx Instructions: give 15 ml via G-tube Nephro-Autumn 0.8 mg tablet 1 tab PO QDAY carboxymethylcellulose sodium 0.5 % dropperette 1 drp Both eyes QDAY acetaminophen 500 mg/15 mL liquid 1,000 mg feeding tube Q8H PRN (Reason: fever or pain) Rx Instructions: for pain-mild(1-3), fever >100.4 albuterol sulfate 2.5 mg /3 mL (0.083 %) solution for nebulization 2.5 mg inhalation Q6H PRN (Reason: shortness of breath or wheezing) baclofen 5 mg tablet 5 mg feeding tube TID metoclopramide HCl 5 mg tablet 5 mg feeding tube TID sennosides [senna] 8.8 mg/5 mL syrup 10 ml PO BID levetiracetam 100 mg/mL solution 1,000 mg feeding tube BID Rx Instructions: give 10 ml via G-tube two times a day fludrocortisone 0.1 mg tablet 0.1 mg feeding tube BID Rx Instructions: give 2 tablets via G-tube 2 times a day midodrine 10 mg tablet 10 mg feeding tube TID Rx Instructions: give 1.5 tablets via G-tube 2 times a day lorazepam 0.5 mg tablet 0.5 mg feeding tube Q6H guaifenesin 100 mg/5 mL liquid 100 mg PO Q6H PRN (Reason: cough) Rx Instructions: give 20 ml by mouth gabapentin 250 mg/5 mL solution 250 mg feeding tube Q8H acetylcysteine 200 mg/mL (20 %) solution 2 ml inhalation Q8H PRN (Reason: COUGH) bisacodyl [Dulcolax (bisacodyl)] 10 mg suppository 10 mg UT QDAY PRN (Reason: for no BM) Rx Instructions: IF NO RESULTS IN 24 HOURS, FLEET ENEMA Fleet Enema 19-7 gram/118 mL enema 118 ml UT QDAY PRN (Reason: NO BM) magnesium hydroxide [Milk of Magnesia] 400 mg/5 mL suspension 400 mg PO QDAY PRN (Reason: NO BM) Rx Instructions: give 30 ml by mouth as needed for no bm for 3 days Discontinued enoxaparin 60 mg/0.6 mL syringe 60 mg subcut BID Referrals: Gerri Bentley MD [Primary Care Provider] - Patient/Caregiver Discharge Instructions Discharge Activity: resume usual activities Education Materials: Understanding Post Sepsis Syndrome, Sepsis, Understanding Sepsis Print Language: Mauritian Stand Alone Forms: Vanessa Award Info., Patient Portal Info Letter Discharge Order Discharge Orders: Discharge (Routine); Ordered 01/27/25 Ordered By: James Crespo Quality Discharge Quality Measures VTE prophylaxis
[2025-01-28] VITALS (15 sets, daily range): BP systolic 105–158; BP diastolic 69–92; PULSE 102–117; RESP 14–27; TEMP 35.9–36.9; O2SAT 92–100
[2025-01-28] MEDS: MIDODRINE 5 MG TABLET 10 MG PO ×3 (05:03→21:58)
[2025-01-28] MEDS: BACLOFEN 10 MG TABLET 5 MG PO ×3 (05:04→21:58)
[2025-01-28 05:49] LABS: Basophils % (Auto) 1 % (0-2.5); Monocytes % (Auto) 7 % (0-12); Nucleated Red Blood Cell % 0 /100 WBC (0)
[2025-01-28 05:51] LABS: Basophils # (Auto) 0.1 Thou/mm3 (0.0-0.2); Eosinophils # (Auto) 2.6 Thou/mm3 (0.0-0.5); Eosinophils % (Auto) 18 % (0-10); Hematocrit 32.1 % (41.0-53.0); Hemoglobin 10.1 g/dL (13.5-16.0); Immature Granulocytes % (Auto) 1 % (0-0); Immature Granulocytes Auto 0.18 Thou/mm3 (0.00-0.00); Lymphocytes # (Auto) 1.9 Thou/mm3 (1.0-4.8); Lymphocytes % (Auto) 13 % (10-50); Mean Corpuscular HGB Conc 31.5 g/dl (31.0-37.0); Mean Corpuscular Hemoglobin 29.4 pg (25.0-35.0); Mean Corpuscular Volume 94 fL (80-100); Monocytes # (Auto) 1.1 Thou/mm3 (0.0-0.8); Neutrophils % (Auto) 60 % (37-80); Platelet Count 612 Thou/mm3 (140-440); RDW Standard Deviation 51.8 fL (35.1-43.9); Red Blood Count 3.43 Miln/mm3 (4.50-5.90); White Blood Count 14.9 Thou/mm3 (3.8-10.6)
[2025-01-28 06:19] LABS: Alanine Aminotransferase 36 U/L (10-49); Albumin, Serum 3.6 gm/dL (3.5-5.0); Albumin/Globulin Ratio 1.1 (1.2-2.2); Alkaline Phosphatase 247 U/L (46-116); Anion Gap 9 (7-16); Aspartate Amino Transferase 23 U/L (0-34); BUN/Creatinine Ratio 28 Ratio (12-20); Bilirubin,Total < 0.2 mg/dL (0.3-1.2); Blood Urea Nitrogen 45 mg/dL (9-23); Calcium 8.7 mg/dL (8.3-10.6); Carbon Dioxide 26.3 mMol/L (20.0-31.0); Chloride 109 mMol/L (98-107); Creatinine (Component) 1.6 mg/dL (0.6-1.3); Estimated Creatinine Clearance 53.2 mL/min (>60); Globulin 3.2 gm/dL (2.3-3.5); Glucose 125 mg/dL (74-106); Magnesium 2.2 mg/dL (1.6-2.6); Osmolality,Calculated 299 (275-295); Phosphorous 3.5 mg/dL (2.4-5.1); Potassium 4.2 mMol/L (3.4-5.1); Sodium 144 mMol/L (136-145); Total Protein 6.8 gm/dL (5.7-8.2); eGFR 55 See Note
[2025-01-28] MEDS: LEVALBUTEROL RT 1.25 MG/0.5 ML NEBU INH ×3 (07:41→21:57)
[2025-01-28] MEDS: IPRATROPIUM RT 0.5 MG/ 2.5 ML NEBU INH ×3 (07:41→21:57)
[2025-01-28] MEDS: ERTAPENEM INJ 1,000 MG in SODIUM CHLORIDE 0.9% (Popper) 50 ML 100 MG IV (09:00)
[2025-01-28] MEDS: ENOXAPARIN SOD INJ 100 MG/ML SYRINGE 60 MG SC ×2 (09:21→21:57)
[2025-01-28] MEDS: VIT B12/Vit C/FA (Nephrovite) TABLET 1 TAB PO (09:22)
[2025-01-28] MEDS: levETIRAcetam LIQD 500 MG/5 ML UDC 1000 MG GT ×2 (09:22→21:57)
[2025-01-28] MEDS: PHENYTOIN 100 MG/4 ML UDC 600 MG GT ×2 (09:22→21:57)
[2025-01-28] MEDS: FLUDROCORTISONE ACETATE 0.1 MG TABLET GT ×2 (09:23→21:58)
[2025-01-28] MEDS: LANSOPRAZOLE 30 MG TAB.RAP.DR GT (09:23)
[2025-01-28] MEDS: MULTIVITAMIN 15 ML UDC PO (09:23)
[2025-01-28] MEDS: DOXYCYCLINE 100 MG TABLET PO ×2 (09:23→21:57)
--- NOTE | 2025-01-28 10:47 | PC.SS ---
Follow up note: SS contacted Lizette @ [facility] and she states Dr. Scott is aware of d/c plans. He would like our subacute admissions team to fax him over the consents for admission, . Work # [phone]. Once he signs and faxes back, patient can be admitted to subacute. SS inquired about bed hold at [facility] and they will be contacting facility to request a bed hold at [facility]. SS confirmed with Lizette @ [facility], #[phone]. Updated [facility] in subacute of d/c plans today.
--- NOTE | 2025-01-28 14:18 | ESDS_ITS ---
<Statement entered by Dang Dale MD - 02/08/25 13:16> I reviewed above note and agree with findings and plans. I have also personally examined the patient with medicine team and went over assessment and plan with medical team including technical intern and resident physician. <Statement entered by James Crespo MD - 01/29/25 16:17> Attempt was made to discharge patient on 01/28/2025. Discharge was delayed until 01/29. Planned Discharge Date 01/28/25 DS: Providers Provider Date of admission: 01/05/25 17:09 Primary care physician: Gerri Bentley MD Admitting Provider: Leydi Rojas MD Attending Provider on Admission: Dang Dale MD Consults: 01/06/25 02:28 Referral Wound Care Stat Comment: SNF PT. MULTIPLE WOUNDS, E.G. STAGE 4 TO COCCYX 01/06/25 07:24 Consult to Infectious Diseases Stat Comment: Consulting Provider: Imtiaz Rainey 01/06/25 08:52 Referral Nutritional Services Routine Comment: Start tube feeding please as he was on per records 01/18/25 10:21 Consult to Gastroenterology Routine Comment: Consulting Provider: Pradip Salazar 01/18/25 10:36 Consult to General Surgery Routine Comment: Consulting Provider: Marichuy Rodriguez 01/23/25 15:03 Consult to Infectious Diseases Routine Comment: Antibiotics for osteomyelitis Consulting Provider: Imtiaz Rainey Attending Provider on DC: Dang Dale MD Discharging Provider: James Crespo MD DS: Diagnosis Problem List Completed Was Problem List Reviewed/Reconciled?: Yes Hospital Course Hospital Course Hospital course: 39-year-old male with a past medical history of 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, status post tracheostomy, mechanical ventilation, PEG tube, suprapubic catheter, right nephrostomy tube due to obstructive uropathy, and bilateral upper extremity DVT, presented to [facility] from a assisted due to tachycardia, hypotension, and fever, admitted for sepsis due to osteomyelitis. Patient complicated hospital course with multiple rounds of septic shock requiring pressors and ICU support, multiple infections including osteomyelitis and pneumonia. Patient received appropriate treatment for pneumonia, infectious disease was consulted for management of osteomyelitis. Patient unable to get PICC line placed due to bilateral upper extremity DVTs, had tunneled central line placed. Patient vitals stable off of pressors and IV fluid support. Patient cleared for discharge from infectious disease perspective. Patient medically stable and cleared for discharge. Discharge plan: You have been started on the following medications: -Ertapenem 1 g IV daily until 02/22/2025 -Doxycycline 100 mg via G-tube twice daily until 02/22/2025 -Eliquis 5 mg via G-tube twice daily The following medications have been STOPPED: - Lovenox, changed to Eliquis Please continue taking all other medications as previously prescribed. Please follow-up with your PCP within 1-2 weeks. Please continue to participate wound care, avoid excessive pressure to sacral ulcer. Return to ED if you develop new or worsening symptoms. Diagnoses: #Decubitus ulcer #Osteomyelitis #Septic shock, resolved #Ventilator associated pneumonia?Klebsiella, treatment complete #History of bilateral upper extremity DVT #History of factor V Leyden deficiency #Anemia of chronic disease #Acute anemia #Adrenal insufficiency, suspected #Obstructive uropathy #ELDON on CKD, improving #Transaminitis, improving #Diabetes mellitus type 2 #Seizure, patient history #Anoxic brain injury due to cardiac arrest Plan of care discussed with attending Dr. Dale. James Crespo MD PGY?2 Status at Discharge Overall status at discharge: patient is progressing back to baseline Time Spent with Patient Time attestation: Total time spent providing and/or coordinating discharge services: Time spent: Greater than 30 minutes Exam Vital Signs Temp Pulse Resp BP Pulse Ox O2 Del Method O2 Flow Rate 96.7 F L 104 H 16 122/76 98 Trach Collar 45 01/28/25 12:00 01/28/25 12:00 01/28/25 12:00 01/28/25 12:00 01/28/25 12:00 01/28/25 12:00 01/28/25 12:00 FiO2 40 01/28/25 12:00 Narrative Exam PE: Gen: Chronically ill-appearing. HEENT: NCAT, MMM, anicteric conjunctivae. Tracheostomy to vent. CVS: normal S1 and S2. RRR. No M/R/G. Left-sided central line. Resp: CTA B/L. No rhonchi, rales, crackles or wheezing. Poor lung sounds due to low respiratory effort. Abd: soft, non-tender, non-distended. PEG tube. Nephrostomy tube. Suprapubic Lal cath. MSK: Sacral ulcer with granulation tissue, bandaged. Bilateral lower extremity contractures. Dry flaky skin bilateral lower extremities. Neuro: Flexor posturing to noxious stimuli. Eyes open but does not track. Nonverbal. Discharge Plan Plan Patient Disposition: Xfer Skilled Nsg Fac (SNF) Patient condition on transfer: Stable Care Plan Goals: You have been started on the following medications: -Zosyn 3.375 g IV every 6 hours until 02/22/2025 -Doxycycline 100 mg via G-tube twice daily until 02/22/2025 -Eliquis 5 mg via G-tube twice daily Central line to be removed after last dose of antibiotics on 02/22/2025 The following medications have been STOPPED: - Lovenox, changed to Eliquis Please continue taking all other medications as previously prescribed. Please follow-up with your PCP within 1-2 weeks. Please continue to participate wound care, avoid excessive pressure to sacral ulcer. Return to ED if you develop new or worsening symptoms. Prescriptions/Referrals Prescriptions/Med Rec: New doxycycline hyclate 100 mg tablet 100 mg feeding tube BID 26 Days Qty: 52 0RF Eliquis 5 mg tablet 5 mg feeding tube BID 30 Days Qty: 60 0RF Zosyn in dextrose (iso-osm) 3.375 gram/50 mL piggyback 3.375 g IV Q6H 25 Days Continued phenytoin 125 mg/5 mL suspension 600 mg G-tube BID fluocinonide 0.05 % solution 1 applic TOPICAL .qshift Rx Instructions: apply to face topically pantoprazole [Protonix] [address] for susp in packet 40 mg PO QDAY Pro-Stat Sugar Free 15-100 gram-kcal/30 mL liquid 1 ea PO BID chlorhexidine gluconate 0.12 % mouthwash 15 ml PO BID Rx Instructions: by mouth, first swab mouth with Chlorhexidine gluconate, then suction rinse by swabbing with water, then suction ipratropium-albuterol 0.5 mg-3 mg(2.5 mg base)/3 mL solution for nebulization 3 ml INHALATION QID Valtoco 10 mg/spray (0.1 mL) spray,non-aerosol 10 mg intranasal PRN Rx Instructions: 1 application in nostril as needed for seizure activity lasting longer than 1 minute, administer 1st dose in 1 nostril after 1 min of seizure activity, wait 1 minute - if seizure continues after 1st dose, administer second dose Multivitamin And Mineral oral liquid 15 mL liquid 15 ml G-tube QDAY Rx Instructions: give 15 ml via G-tube Nephro-Atuumn 0.8 mg tablet 1 tab PO QDAY carboxymethylcellulose sodium 0.5 % dropperette 1 drp Both eyes QDAY acetaminophen 500 mg/15 mL liquid 1,000 mg feeding tube Q8H PRN (Reason: fever or pain) Rx Instructions: for pain-mild(1-3), fever >100.4 albuterol sulfate 2.5 mg /3 mL (0.083 %) solution for nebulization 2.5 mg inhalation Q6H PRN (Reason: shortness of breath or wheezing) baclofen 5 mg tablet 5 mg feeding tube TID metoclopramide HCl 5 mg tablet 5 mg feeding tube TID sennosides [senna] 8.8 mg/5 mL syrup 10 ml PO BID levetiracetam 100 mg/mL solution 1,000 mg feeding tube BID Rx Instructions: give 10 ml via G-tube two times a day fludrocortisone 0.1 mg tablet 0.1 mg feeding tube BID Rx Instructions: give 2 tablets via G-tube 2 times a day midodrine 10 mg tablet 10 mg feeding tube TID Rx Instructions: give 1.5 tablets via G-tube 2 times a day lorazepam 0.5 mg tablet 0.5 mg feeding tube Q6H guaifenesin 100 mg/5 mL liquid 100 mg PO Q6H PRN (Reason: cough) Rx Instructions: give 20 ml by mouth gabapentin 250 mg/5 mL solution 250 mg feeding tube Q8H acetylcysteine 200 mg/mL (20 %) solution 2 ml inhalation Q8H PRN (Reason: COUGH) bisacodyl [Dulcolax (bisacodyl)] 10 mg suppository 10 mg [place] QDAY PRN (Reason: for no BM) Rx Instructions: IF NO RESULTS IN 24 HOURS, FLEET ENEMA Fleet Enema 19-7 gram/118 mL enema 118 ml [place] QDAY PRN (Reason: NO BM) magnesium hydroxide [Milk of Magnesia] 400 mg/5 mL suspension 400 mg PO QDAY PRN (Reason: NO BM) Rx Instructions: give 30 ml by mouth as needed for no bm for 3 days Discontinued enoxaparin 60 mg/0.6 mL syringe 60 mg subcut BID Referrals: Gerri Bentley MD [Primary Care Provider] - Patient/Caregiver Discharge Instructions Discharge Activity: resume usual activities Education Materials: Understanding Post Sepsis Syndrome, Sepsis, Understanding Sepsis Print Language: Turkish Stand Alone Forms: Vanessa Award Info., Patient Portal Info Letter Discharge Order Discharge Orders: Discharge (Routine); Ordered 01/27/25 Ordered By: James Crespo Quality Discharge Quality Measures VTE prophylaxis
[2025-01-28] MEDS: Silvasorb Gel 45 ML TUBE TOP (14:44)
[2025-01-28] MEDS: LACTULOSE SYRUP 20 GM/30 ML UDC 10 GM GT ×2 (15:09→21:58)
--- NOTE | 2025-01-28 15:15 | XR_ITS ---
Examination: Abdomen AP single view Technique: AP portable supine abdomen, single view Exam date and time: January 28, 2025 1533 hours Comparison January 18, 2025 INDICATIONS: No bowel movement 5 days FINDINGS: Moderate to abundant air and stool throughout the colon Right nephrostomy tube Gastrostomy tube overlying the stomach No free air No definite obstruction IMPRESSION: Moderate to large amounts of air and stool throughout the colon
--- NOTE | 2025-01-28 18:19 | PC.NURSE ---
Charge nurse Tata in subacute notified that pt had not had a bowel movement in 5 days, rectal tube was removed and a soapsuds enema was administered, pt has still not had a bowel movement. Asked Tata if they would still be willing to take him later this evening after he has a bowel movement, she states they can take him early tomorrow morning. ICU smelter charger notified.
[2025-01-29] VITALS (11 sets, daily range): BP systolic 86–114; BP diastolic 63–84; PULSE 108–122; RESP 16–26; TEMP 36–37; O2SAT 94–100; BMI 21.6
--- NOTE | 2025-01-29 04:00 | PC.NURSE ---
UPON WALKING INTO PATIENT'S ROOM, BROWN, TUBE FEEDING LIKE COLORED SECRETIONS NOTED COMING OUT OF STOMA,SUSPICIOUS FOR ASPIRATION. TUBE FEEDING STOPPED. RESIDUALS CHECKED- [address] CHAPA MADE AWARE. NEW ORDERS TO CONTINUE TO HOLD TUBE FEEDINGS AND CXR PLACED. CENTRAL LINE DRESSING CHANGED D/T SOILING.
--- NOTE | 2025-01-29 04:04 | XR_ITS ---
Examination: AP chest single view Technique one AP portable upright chest single view Exam date and time: January 29, 2025 0417 hrs. Comparison January 20, 2025 Indications: Shortness of breath calculi aspiration today. Findings: Bibasilar pneumonia. Mild prominence left ventricle. Right internal jugular central line tip satisfactory position Tracheal tube tip 6.8 cm above dudley Impression: Bibasilar pneumonia, consider aspiration pneumonia
[2025-01-29] MEDS: LACTULOSE SYRUP 20 GM/30 ML UDC GT (06:00)
[2025-01-29] MEDS: MIDODRINE 5 MG TABLET 10 MG PO ×2 (06:00→14:47)
[2025-01-29] MEDS: BACLOFEN 10 MG TABLET 5 MG PO ×2 (06:00→14:48)
[2025-01-29 06:04] LABS: Basophils # (Auto) 0.2 Thou/mm3 (0.0-0.2); Basophils % (Auto) 1 % (0-2.5); Eosinophils % (Auto) 13 % (0-10); Hematocrit 30.8 % (41.0-53.0); Hemoglobin 9.8 g/dL (13.5-16.0); Immature Granulocytes % (Auto) 1 % (0-0); Immature Granulocytes Auto 0.19 Thou/mm3 (0.00-0.00); Lymphocytes % (Auto) 13 % (10-50); Mean Corpuscular HGB Conc 31.8 g/dl (31.0-37.0); Mean Corpuscular Hemoglobin 29.4 pg (25.0-35.0); Mean Corpuscular Volume 93 fL (80-100); Monocytes # (Auto) 1.5 Thou/mm3 (0.0-0.8); Monocytes % (Auto) 10 % (0-12); Neutrophils # (Auto) 9.2 Thou/mm3 (1.8-7.7); Neutrophils % (Auto) 62 % (37-80); Nucleated Red Blood Cell % 0 /100 WBC (0); Platelet Count 612 Thou/mm3 (140-440); RDW Standard Deviation 51.8 fL (35.1-43.9); Red Blood Count 3.33 Miln/mm3 (4.50-5.90)
[2025-01-29 06:32] LABS: Alanine Aminotransferase 40 U/L (10-49); Albumin, Serum 3.7 gm/dL (3.5-5.0); Albumin/Globulin Ratio 1.2 (1.2-2.2); Alkaline Phosphatase 261 U/L (46-116); Anion Gap 8 (7-16); Aspartate Amino Transferase 26 U/L (0-34); BUN/Creatinine Ratio 35 Ratio (12-20); Bilirubin,Total < 0.2 mg/dL (0.3-1.2); Blood Urea Nitrogen 56 mg/dL (9-23); Calcium 8.9 mg/dL (8.3-10.6); Calcium (Corrected) 9.1 mg/dL (8.5-10.1); Carbon Dioxide 25.7 mMol/L (20.0-31.0); Chloride 107 mMol/L (98-107); Creatinine (Component) 1.6 mg/dL (0.6-1.3); Estimated Creatinine Clearance 52.4 mL/min (>60); Globulin 3.1 gm/dL (2.3-3.5); Glucose 105 mg/dL (74-106); Magnesium 2.3 mg/dL (1.6-2.6); Osmolality,Calculated 296 (275-295); Phosphorous 3.6 mg/dL (2.4-5.1); Sodium 141 mMol/L (136-145); Total Protein 6.8 gm/dL (5.7-8.2); eGFR 55 See Note
[2025-01-29] MEDS: IPRATROPIUM RT 0.5 MG/ 2.5 ML NEBU INH (07:27)
[2025-01-29] MEDS: LEVALBUTEROL RT 1.25 MG/0.5 ML NEBU INH (07:28)
--- NOTE | 2025-01-29 09:10 | PC.SS ---
Addendum entered by Courtney Claire 01/29/25 11:57: SS received update that patient did have a b.m. and i.v. meds were changed. SS spoke to physician team and they are ready to discharge to subacute. SS phoned patient's aunt, Dee and she is aware and agreable to d/c plan. Original Note: Follow up note: Patient i.v. meds changed to zosyn. Subacute was made aware. Pending b.m. documentation. Subacute needs documentation patient had a b.m. then can d/c
[2025-01-29] MEDS: PHENYTOIN 100 MG/4 ML UDC 600 MG GT (09:18)
[2025-01-29] MEDS: ERTAPENEM INJ 1,000 MG in SODIUM CHLORIDE 0.9% (Popper) 50 ML 100 MG IV (09:18)
[2025-01-29] MEDS: MULTIVITAMIN 15 ML UDC PO (09:18)
[2025-01-29] MEDS: FLUDROCORTISONE ACETATE 0.1 MG TABLET GT (09:19)
[2025-01-29] MEDS: ENOXAPARIN SOD INJ 100 MG/ML SYRINGE 60 MG SC (09:19)
[2025-01-29] MEDS: levETIRAcetam LIQD 500 MG/5 ML UDC 1000 MG GT (09:19)
[2025-01-29] MEDS: LANSOPRAZOLE 30 MG TAB.RAP.DR GT (09:19)
[2025-01-29] MEDS: VIT B12/Vit C/FA (Nephrovite) TABLET 1 TAB PO (09:19)
[2025-01-29] MEDS: DOXYCYCLINE 100 MG TABLET PO (09:19)
--- NOTE | 2025-01-29 10:24 | CHAP ---
patient expressed gratitude for visit and prayer.
--- NOTE | 2025-01-29 13:28 | ESDS_ITS ---
<Statement entered by Dang Dale MD - 02/08/25 13:17> I reviewed above note and agree with findings and plans. I have also personally examined the patient with medicine team and went over assessment and plan with medical team including staff internist office based only and resident physician. Planned Discharge Date 01/29/25 DS: Providers Provider Date of admission: 01/05/25 17:09 Primary care physician: Gerri Bentley MD Admitting Provider: Leydi Rojas MD Attending Provider on Admission: Dang Dale MD Consults: 01/06/25 02:28 Referral Wound Care Stat Comment: SNF PT. MULTIPLE WOUNDS, E.G. STAGE 4 TO COCCYX 01/06/25 07:24 Consult to Infectious Diseases Stat Comment: Consulting Provider: Imtiaz Rainey 01/06/25 08:52 Referral Nutritional Services Routine Comment: Start tube feeding please as he was on per records 01/18/25 10:21 Consult to Gastroenterology Routine Comment: Consulting Provider: Pradip Salazar 01/18/25 10:36 Consult to General Surgery Routine Comment: Consulting Provider: Marichuy Rodriguez 01/23/25 15:03 Consult to Infectious Diseases Routine Comment: Antibiotics for osteomyelitis Consulting Provider: Imtiaz Rainey Attending Provider on DC: Dnag Dale MD Discharging Provider: James Crespo MD DS: Diagnosis Problem List Completed Was Problem List Reviewed/Reconciled?: Yes Hospital Course Hospital Course Hospital course: 39-year-old male with a past medical history of 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, status post tracheostomy, mechanical ventilation, PEG tube, suprapubic catheter, right nephrostomy tube due to obstructive uropathy, and bilateral upper extremity DVT, presented to [facility] from a nursing home due to tachycardia, hypotension, and fever, admitted for sepsis due to osteomyelitis. Patient complicated hospital course with multiple rounds of septic shock requiring pressors and ICU support, multiple infections including osteomyelitis and pneumonia. Patient received appropriate treatment for pneumonia, infectious disease was consulted for management of osteomyelitis. Patient unable to get PICC line placed due to bilateral upper extremity DVTs, had tunneled central line placed. Patient vitals stable off of pressors and IV fluid support. Patient cleared for discharge from infectious disease perspective. Patient medically stable and cleared for discharge. Discharge plan: You have been started on the following medications: - Zosyn 3.375 g IV every 6 hours until 02/22/2025 -Doxycycline 100 mg via G-tube twice daily until 02/22/2025 -Eliquis 5 mg via G-tube twice daily The following medications have been STOPPED: - Lovenox, changed to Eliquis Please continue taking all other medications as previously prescribed. Please follow-up with your PCP within 1-2 weeks. Please continue to participate wound care, avoid excessive pressure to sacral ulcer. Return to ED if you develop new or worsening symptoms. Diagnoses: #Decubitus ulcer #Osteomyelitis #Septic shock, resolved #Ventilator associated pneumonia?Klebsiella, treatment complete #History of bilateral upper extremity DVT #History of factor V Leyden deficiency #Anemia of chronic disease #Acute anemia #Adrenal insufficiency, suspected #Obstructive uropathy #ELDON on CKD, improving #Transaminitis, improving #Diabetes mellitus type 2 #Seizure, patient history #Anoxic brain injury due to cardiac arrest Plan of care discussed with senior resident Dr. Owusu PGY?[address] Dale. James Crespo MD PGY?2 Status at Discharge Overall status at discharge: patient is progressing back to baseline Time Spent with Patient Time attestation: Total time spent providing and/or coordinating discharge services: Time spent: Greater than 30 minutes Exam Vital Signs Temp Pulse Resp BP Pulse Ox O2 Del Method O2 Flow Rate 97.8 F 118 H 19 86/63 L 98 Mechanical Ventilation 45 01/29/25 12:00 01/29/25 12:00 01/29/25 12:00 01/29/25 12:00 01/29/25 12:00 01/29/25 12:00 01/29/25 04:00 FiO2 40 01/29/25 12:00 Narrative Exam PE: Gen: Chronically ill-appearing. HEENT: NCAT, MMM, anicteric conjunctivae. Tracheostomy to vent. CVS: normal S1 and S2. RRR. No M/R/G. Left-sided central line. Resp: CTA B/L. No rhonchi, rales, crackles or wheezing. Poor lung sounds due to low respiratory effort. Abd: soft, non-tender, non-distended. PEG tube. Nephrostomy tube. Suprapubic Lal cath. MSK: Sacral ulcer with granulation tissue, bandaged. Bilateral lower extremity contractures. Dry flaky skin bilateral lower extremities. Neuro: Flexor posturing to noxious stimuli. Eyes open but does not track. Nonverbal. Discharge Plan Plan Patient Disposition: Xfer Skilled Nsg Fac (SNF) Patient condition on transfer: Stable Care Plan Goals: You have been started on the following medications: -Zosyn 3.375 g IV every 6 hours until 02/22/2025 -Doxycycline 100 mg via G-tube twice daily until 02/22/2025 -Eliquis 5 mg via G-tube twice daily Central line to be removed after last dose of antibiotics on 02/22/2025 The following medications have been STOPPED: - Lovenox, changed to Eliquis Please continue taking all other medications as previously prescribed. Please follow-up with your PCP within 1-2 weeks. Please continue to participate wound care, avoid excessive pressure to sacral ulcer. Return to ED if you develop new or worsening symptoms. Prescriptions/Referrals Prescriptions/Med Rec: New doxycycline hyclate 100 mg tablet 100 mg feeding tube BID 26 Days Qty: 52 0RF Eliquis 5 mg tablet 5 mg feeding tube BID 30 Days Qty: 60 0RF Zosyn in dextrose (iso-osm) 3.375 gram/50 mL piggyback 3.375 g IV Q6H 25 Days Continued phenytoin 125 mg/5 mL suspension 600 mg G-tube BID fluocinonide 0.05 % solution 1 applic TOPICAL .qshift Rx Instructions: apply to face topically pantoprazole [Protonix] [address] for susp in packet 40 mg PO QDAY Pro-Stat Sugar Free 15-100 gram-kcal/30 mL liquid 1 ea PO BID chlorhexidine gluconate 0.12 % mouthwash 15 ml PO BID Rx Instructions: by mouth, first swab mouth with Chlorhexidine gluconate, then suction rinse by swabbing with water, then suction ipratropium-albuterol 0.5 mg-3 mg(2.5 mg base)/3 mL solution for nebulization 3 ml INHALATION QID Valtoco 10 mg/spray (0.1 mL) spray,non-aerosol 10 mg intranasal PRN Rx Instructions: 1 application in nostril as needed for seizure activity lasting longer than 1 minute, administer 1st dose in 1 nostril after 1 min of seizure activity, wait 1 minute - if seizure continues after 1st dose, administer second dose Multivitamin And Mineral oral liquid 15 mL liquid 15 ml G-tube QDAY Rx Instructions: give 15 ml via G-tube Nephro-Autumn 0.8 mg tablet 1 tab PO QDAY carboxymethylcellulose sodium 0.5 % dropperette 1 drp Both eyes QDAY acetaminophen 500 mg/15 mL liquid 1,000 mg feeding tube Q8H PRN (Reason: fever or pain) Rx Instructions: for pain-mild(1-3), fever >100.4 albuterol sulfate 2.5 mg /3 mL (0.083 %) solution for nebulization 2.5 mg inhalation Q6H PRN (Reason: shortness of breath or wheezing) baclofen 5 mg tablet 5 mg feeding tube TID metoclopramide HCl 5 mg tablet 5 mg feeding tube TID sennosides [senna] 8.8 mg/5 mL syrup 10 ml PO BID levetiracetam 100 mg/mL solution 1,000 mg feeding tube BID Rx Instructions: give 10 ml via G-tube two times a day fludrocortisone 0.1 mg tablet 0.1 mg feeding tube BID Rx Instructions: give 2 tablets via G-tube 2 times a day midodrine 10 mg tablet 10 mg feeding tube TID Rx Instructions: give 1.5 tablets via G-tube 2 times a day lorazepam 0.5 mg tablet 0.5 mg feeding tube Q6H guaifenesin 100 mg/5 mL liquid 100 mg PO Q6H PRN (Reason: cough) Rx Instructions: give 20 ml by mouth gabapentin 250 mg/5 mL solution 250 mg feeding tube Q8H acetylcysteine 200 mg/mL (20 %) solution 2 ml inhalation Q8H PRN (Reason: COUGH) bisacodyl [Dulcolax (bisacodyl)] 10 mg suppository 10 mg [place] QDAY PRN (Reason: for no BM) Rx Instructions: IF NO RESULTS IN 24 HOURS, FLEET ENEMA Fleet Enema 19-7 gram/118 mL enema 118 ml [place] QDAY PRN (Reason: NO BM) magnesium hydroxide [Milk of Magnesia] 400 mg/5 mL suspension 400 mg PO QDAY PRN (Reason: NO BM) Rx Instructions: give 30 ml by mouth as needed for no bm for 3 days Discontinued enoxaparin 60 mg/0.6 mL syringe 60 mg subcut BID Referrals: Mc,Abbas, MD [Primary Care Provider] - Patient/Caregiver Discharge Instructions Discharge Activity: resume usual activities Education Materials: Understanding Post Sepsis Syndrome, Sepsis, Understanding Sepsis Print Language: Guyanese Stand Alone Forms: Vanessa Award Info., Patient Portal Info Letter Discharge Order Discharge Orders: Discharge (Routine); Ordered 01/27/25 Ordered By: James Crespo Quality Discharge Quality Measures VTE prophylaxis
== END 2025-01-29 15:54 | disposition skilled nursing facility (03) | DRG 870 ==
LOC: SERX 17:17 → SERHOLD 17:22 → S2SX 20:11 → S2NX 01-11 08:26 → S2SX 01-17 08:38 → S2NX 01-19 11:02 → S2SX 01-19 11:02 → S2NX 01-19 11:03
PROVIDERS: Internal Medicine; Internal Medicine Infectious Disease; Radiology Diagnostic Radiology; Student in an Organized Health Care Education/Training Program; Admitting Provider Internal Medicine; Emergency Provider Emergency Medicine; PCP Hospitalist; Visit Provider Internal Medicine
DX: A41.9 Sepsis, unspecified organism (principal); L89.314 Pressure ulcer of right buttock, stage 4; J15.0 Pneumonia due to Klebsiella pneumoniae; L89.154 Pressure ulcer of sacral region, stage 4; R65.21 Severe sepsis with septic shock; K72.00 Acute and subacute hepatic failure without coma; J96.21 Acute and chronic respiratory failure with hypoxia; M86.9 Osteomyelitis, unspecified; N17.9 Acute kidney failure, unspecified; N39.0 Urinary tract infection, site not specified; K94.23 Gastrostomy malfunction; E87.0 Hyperosmolality and hypernatremia; J95.851 Ventilator associated pneumonia; M46.28 Osteomyelitis of vertebra, sacral and sacrococcygeal region; E27.40 Unspecified adrenocortical insufficiency; G93.1 Anoxic brain damage, not elsewhere classified; I82.623 Acute embolism and thrombosis of deep veins of upper extremity, bilateral; Z99.11 Dependence on respirator [ventilator] status; I12.9 Hypertensive chronic kidney disease with stage 1 through stage 4 chronic kidney disease, or unspecified chronic kidney disease; Z86.718 Personal history of other venous thrombosis and embolism; N18.9 Chronic kidney disease, unspecified; K21.9 Gastro-esophageal reflux disease without esophagitis; N13.9 Obstructive and reflux uropathy, unspecified; E11.22 Type 2 diabetes mellitus with diabetic chronic kidney disease; E86.0 Dehydration; E11.69 Type 2 diabetes mellitus with other specified complication; D63.1 Anemia in chronic kidney disease; E87.6 Hypokalemia; Y84.8 Other medical procedures as the cause of abnormal reaction of the patient, or of later complication, without mention of misadventure at the time of the procedure; Z86.69 Personal history of other diseases of the nervous system and sense organs; Z79.4 Long term (current) use of insulin; R62.7 Adult failure to thrive; Z79.01 Long term (current) use of anticoagulants; Z79.2 Long term (current) use of antibiotics; G40.909 Epilepsy, unspecified, not intractable, without status epilepticus; Z79.52 Long term (current) use of systemic steroids; Z79.899 Other long term (current) drug therapy; K59.00 Constipation, unspecified; N31.9 Neuromuscular dysfunction of bladder, unspecified; Y95 Nosocomial condition; Z86.74 Personal history of sudden cardiac arrest
CPT/HCPCS: 36415; 36600; 71045; 71250; 74018; 74176; 77001; 80048; 80053; 80061; 80069; 80185; 80202; 81001; 82803; 83036; 83605; 83735; 84100; 84145; 84484; 85014; 85018; 85025; 85610; 85652; 85730; 86140; 86703; 86803; 86850; 86900; 86901; 86923; 87040; 87070; 87077; 87081; 87086; 87106; 87186; 87205; 87493; 87811; 93005; 93306; 93970; 94002; 94003; 94640; 96365; 96366; 96367; 99285; A9270; C1751; C1894; J0692; J1165; J1335; J1642; J1643; J1644; J1650; J1815; J2185; J2247; J2470; J2543; J2598; J3230; J3370; J3372; J3480; J3490; J7030; J7040; J7050; J7120; P9016

== ENCOUNTER 2025-01-29 16:12 | Inpatient (IN) | payer MEDICARE, MEDICAID, SELFPAY ==
--- NOTE | 2025-01-29 16:24 | PC.SS ---
Resident admitted from acute care on vent with trach in place and GT for medication nutrition. Resident decision maker is his aunt Dee Smith, resident is unable to make needs known. Resident is Lutheran zoroastrian and will accept spiritual care visits. He is DNR and selective treatment, send out to acute care if needed.
[2025-01-29 18:00] VITALS: BP 103/70; PULSE 106; RESP 19; TEMP 35.6; O2SAT 98
[2025-01-29 18:55] VITALS: PULSE 111; RESP 37; O2SAT 96
--- NOTE | 2025-01-29 20:09 | PC.NURSE ---
Admitted a 39 y/o male from tele via bed accompanied by RT, RN, PHYSICIST NUCLEAR via bed and on mechanical ventilator. Resident noted to be non verbal, severely contracted. Noted with with multiple wounds. as per report from Tele nurse, resident is hypotensive, usually his B/P is in 80s to 90s which is his baseline. Resident will be on Zosyn and doxycycline for osteomyelitis. Dr Silverio made aware of the admission and clarified orders. With an order for Voltaco PRN for sizure. If not available from the pharmacy and not covered , change it to Ativan PRN as per MD.
--- NOTE | 2025-01-29 20:25 | PC.NURSE ---
CONSENT TO GIVE LORAZEPAM RECEIVED FROM AUNT, ESTHER BATES, OVER THE PHONE FOR LORAZEPAM FOR ANXIETY AMB AGITATION. TELEPHONE CONSENT WITNESS WITH GERI MARES LVN. NO QUESTIONS AT THIS TIME, AND WAS AWARE THAT RESIDENT WAS RECEIVING MEDICATION BEFORE.
[2025-01-29] MEDS: CARBAMIDE PEROXIDE OTIC SOL 15 ML BTL 5 DROP BOTH EARS (21:47)
[2025-01-29] MEDS: SENNOSIDES 8.6 MG TABLET GT (21:48)
[2025-01-29] MEDS: NON-FORMULARY *SEE COMMENTS* 1 EA EA 100 EA GT (21:48)
[2025-01-29] MEDS: MIDODRINE 10 MG TABLET GT (21:49)
[2025-01-29] MEDS: PIPERACILLIN SODIUM/TAZOBACTAM 3.375 GM VIAL IV (22:09)
--- NOTE | 2025-01-29 22:40 | ESHP_ITS ---
Physical exam Physical Exam Vital signs: Temp Pulse Resp BP Pulse Ox O2 Del Method FiO2 99.2 F 105 H 23 H 91/59 L 100 Mechanical Ventilation 40 01/31/25 06:00 01/31/25 06:55 01/31/25 06:55 01/31/25 06:00 01/31/25 06:55 01/30/25 17:59 01/31/25 06:55 Narrative: VSS Constitutional Comments: VSS Respiratory Exam Respiratory: Present chest non-tender, lungs clear, normal breath sounds, no resp distress and patient mechanically ventilated Cardiovascular Exam Cardiovascular: Present RRR, S1 and S2 Abdominal Exam Abdominal: Present soft Rectal Exam Comments: deferred Exam Comments: uretral obstruction with a nephrostomy and suprapubic catheter in place Extremities Exam Comments: spastic contractures of all limbs Back/Spine/Pelvis Exam Comments: NAD Neurological Exam Comments: spontaneous eye opening, no cognizant response Rehabilitation potential Diagnosis (1) Osteomyelitis: Status: Chronic (2) DVT (deep venous thrombosis): Status: Chronic Assessment & Plan: b/l upper extremities (3) Chronic respiratory failure: Status: Chronic (4) Ventilator dependent: Status: Chronic (5) G tube feedings: Status: Chronic (6) Tracheostomy in place: Status: Chronic (7) Seizures: Status: Chronic (8) Adrenal insufficiency: Status: Chronic (9) Ureteric obstruction: Status: Chronic Assessment & Plan: with a suprapubic catheter in place for drainage Assessment & Plan Assessment: 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 Recently treated in Acute care for septic shock from chronic osteomyelitis and pneumonia and now with a central line for continued antibiotics is admitted to [facility] for buttermaker helper treatment. Plan: Current tratment reviewed and continued Prognosis Prognosis: Very guarded If patient not informed of condion, describe why: pt not cognizant Goals full support in all needs HPI History of Present Illness HPI: 39-year-old male with a past medical history of 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 Recently treated in Acute care for septic shock from chronic osteomyelitis and pneumonia and now with a central line for continued antibiotics is admitted to [facility] for nursing home treatment.
[2025-01-30] VITALS (11 sets, daily range): BP systolic 92–110; BP diastolic 61–69; PULSE 97–108; RESP 16–37; TEMP 36.2–38.8; O2SAT 96–100
--- NOTE | 2025-01-30 03:51 | PC.NURSE ---
Resident tolerated zosyn IV. No adverse reaction noted. No fever noted.
[2025-01-30] MEDS: BACLOFEN 10 MG TABLET 5 MG GT ×3 (05:32→21:02)
[2025-01-30] MEDS: METOCLOPRAMIDE 5 MG TABLET GT ×3 (05:34→21:02)
[2025-01-30] MEDS: MIDODRINE 10 MG TABLET GT ×3 (05:34→21:02)
[2025-01-30] MEDS: PIPERACILLIN SODIUM/TAZOBACTAM 3.375 GM VIAL IV ×4 (05:37→23:58)
[2025-01-30] MEDS: IPRATROPIUM/ALBUTEROL 3 ML AMPUL.NEB INH ×2 (07:16→12:46)
[2025-01-30] MEDS: MULTIVITAMIN W MINERALS 1 EACH TABLET GT (08:50)
[2025-01-30] MEDS: SENNOSIDES 8.6 MG TABLET GT ×2 (08:51→21:02)
[2025-01-30] MEDS: NON-FORMULARY *SEE COMMENTS* 1 EA EA 100 EA GT ×2 (08:51→21:03)
[2025-01-30] MEDS: CARBAMIDE PEROXIDE OTIC SOL 15 ML BTL 5 DROP BOTH EARS (09:04)
[2025-01-30] MEDS: APIXABAN 5 MG TABLET GT (09:04)
[2025-01-30] MEDS: DEX/HYPRO/GLY ARTIFICAL TEARS 225 DROP/15 ML BTL BOTH EYES (09:05)
[2025-01-30] MEDS: PANTOPRAZOLE 40 MG GRANPKT.DR GT (09:05)
[2025-01-30] MEDS: NON-FORMULARY *SEE COMMENTS* 1 EA EA 600 EA GT ×2 (10:01→21:03)
[2025-01-30] MEDS: ACETAMINOPHEN 325 MG TABLET GT (13:05)
--- NOTE | 2025-01-30 18:04 | PC.NURSE ---
Resident remains on abt therapy Q6 hours for osteomylitis and ESBL. A/R noted tolerated well. Will continue to monitor.
--- NOTE | 2025-01-30 18:40 | PC.NURSE ---
At 1230 when RN students were obtaining vital signs she reported to this nurse resident was diaphoretic and felt warm to the touch. Vital signs obtained as follow 101.8 rectally, 108, 37, 97/61 Spo2 98%. Medicated with Acetaminophen 325mg x2 tablets and cooling measures applied. At 1500 F/u vital signs 100.8 rectally, 76, 35,114/70. Continue with cooling measures. At 1743 F/U vital signs 99.2 rectally, 105, 36, 97/63 Medicated with Ativan PRN @ 1620 for anxiety / ^RR med ineffective. Resident already receiving ABX Zosyn IV and Doxycyclin via g-tube for Osteomylitis, ESBL. Charge nurse Marsha Sorto RN informed.
[2025-01-31] VITALS (9 sets, daily range): BP systolic 91–101; BP diastolic 58–62; PULSE 86–108; RESP 16–33; TEMP 36.2–38.3; O2SAT 86–100
[2025-01-31] MEDS: IPRATROPIUM/ALBUTEROL 3 ML AMPUL.NEB INH ×4 (01:36→19:28)
[2025-01-31] MEDS: PIPERACILLIN SODIUM/TAZOBACTAM 3.375 GM VIAL IV ×3 (05:28→23:51)
[2025-01-31] MEDS: BACLOFEN 10 MG TABLET 5 MG GT ×3 (05:31→21:36)
[2025-01-31] MEDS: METOCLOPRAMIDE 5 MG TABLET GT ×3 (05:31→21:36)
[2025-01-31] MEDS: MIDODRINE 10 MG TABLET GT ×3 (05:31→21:36)
--- NOTE | 2025-01-31 06:17 | PC.NURSE ---
Resident remains on IV antibiotics Zosyn every 6 hours for Osteomyelitis to wound and ESBL, no side effects noted, both ports remain patent. Resident had elevated temp of 101.0 rectally, cooling measures initiated, after one hour rectal temp was 99.1, last temp this AM was 99.2.
[2025-01-31] MEDS: APIXABAN 5 MG TABLET GT ×2 (09:42→21:29)
[2025-01-31] MEDS: CARBAMIDE PEROXIDE OTIC SOL 15 ML BTL 5 DROP BOTH EARS ×2 (09:43→21:30)
[2025-01-31] MEDS: DEX/HYPRO/GLY ARTIFICAL TEARS 225 DROP/15 ML BTL BOTH EYES (09:44)
[2025-01-31] MEDS: FLUDROCORTISONE 0.1 MG GT ×2 (09:45→21:31)
[2025-01-31] MEDS: NON-FORMULARY *SEE COMMENTS* 1 EA EA 100 EA GT ×2 (09:48→21:34)
[2025-01-31] MEDS: MULTIVITAMIN W MINERALS 1 EACH TABLET GT (09:48)
[2025-01-31] MEDS: NON-FORMULARY *SEE COMMENTS* 1 EA EA 600 EA GT ×2 (09:53→21:35)
[2025-01-31] MEDS: PANTOPRAZOLE 40 MG GRANPKT.DR GT (09:54)
[2025-01-31] MEDS: SENNOSIDES 8.6 MG TABLET GT ×2 (09:54→21:35)
--- NOTE | 2025-01-31 12:57 | PD.SAPROG ---
Progress Note - SubAcute DIAGNOSIS (1) Osteomyelitis: Status: Chronic Assessment & Plan: sacral decubitis osteomyelitis (2) DVT (deep venous thrombosis): Status: Chronic (3) Chronic respiratory failure: Status: Chronic (4) Ventilator dependent: Status: Chronic (5) G tube feedings: Status: Chronic (6) Tracheostomy in place: Status: Chronic (7) Seizures: Status: Chronic (8) Adrenal insufficiency: Status: Chronic (9) Ureteric obstruction: Status: Chronic OBJECTIVE Most recent vital signs: Last Vital Signs Temp 99.2 F 01/31/25 06:00 Pulse 105 H 01/31/25 06:55 Resp 23 H 01/31/25 06:55 BP 91/59 L 01/31/25 06:00 Pulse Ox 100 01/31/25 06:55 O2 Del Method Mechanical Ventilation 01/30/25 17:59 FiO2 40 01/31/25 06:55 Neurological:: awake (no cognizant response) Respiratory:: lungs clear (ventilator dependent) Cardiovascular: RRR Abdomen: soft Extremities:: deformities (spastic contractures) Decubitus:: unchanged (osteomyelitis) Tracheostomy:: to ventilator Feeding per:: G tube Complaints:: none ASSESSMENT & PLAN Assessment: 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 Recently treated in Acute care for septic shock from chronic osteomyelitis and pneumonia and now with a central line for continued antibiotics is admitted to [facility] for filler leaf cutter long treatment. Plan: Current tratment reviewed and continued
[2025-01-31] MEDS: NON-FORMULARY *SEE COMMENTS* 1 EA EA 250 EA GT ×2 (14:45→21:36)
[2025-01-31] MEDS: ACETAMINOPHEN 325 MG TABLET GT (21:45)
[2025-02-01] VITALS (8 sets, daily range): BP systolic 90–97; BP diastolic 56–62; PULSE 80–102; RESP 16–30; TEMP 36.2–37; O2SAT 98–100; BMI 21.5
[2025-02-01] MEDS: IPRATROPIUM/ALBUTEROL 3 ML AMPUL.NEB INH ×4 (01:58→18:35)
[2025-02-01] MEDS: PIPERACILLIN SODIUM/TAZOBACTAM 3.375 GM VIAL IV ×4 (05:32→23:43)
[2025-02-01] MEDS: METOCLOPRAMIDE 5 MG TABLET GT ×3 (05:46→21:34)
[2025-02-01] MEDS: BACLOFEN 10 MG TABLET 5 MG GT ×3 (05:46→21:34)
[2025-02-01] MEDS: MIDODRINE 10 MG TABLET GT ×3 (05:47→21:34)
[2025-02-01] MEDS: NON-FORMULARY *SEE COMMENTS* 1 EA EA 250 EA GT ×3 (05:48→21:35)
--- NOTE | 2025-02-01 07:15 | PC.NURSE ---
Resident on Oral ATB. No s/s of adverse reactions noted. Resident tolerated well
[2025-02-01] MEDS: APIXABAN 5 MG TABLET GT ×2 (09:28→21:25)
[2025-02-01] MEDS: DEX/HYPRO/GLY ARTIFICAL TEARS 225 DROP/15 ML BTL BOTH EYES (09:29)
[2025-02-01] MEDS: CARBAMIDE PEROXIDE OTIC SOL 15 ML BTL 5 DROP BOTH EARS ×2 (09:29→21:27)
[2025-02-01] MEDS: FLUDROCORTISONE 0.1 MG GT ×2 (09:30→21:30)
[2025-02-01] MEDS: MULTIVITAMIN W MINERALS 1 EACH TABLET GT (09:33)
[2025-02-01] MEDS: NON-FORMULARY *SEE COMMENTS* 1 EA EA 100 EA GT ×2 (09:34→21:33)
[2025-02-01] MEDS: NON-FORMULARY *SEE COMMENTS* 1 EA EA 600 EA GT ×2 (09:36→21:33)
[2025-02-01] MEDS: PANTOPRAZOLE 40 MG GRANPKT.DR GT (09:37)
[2025-02-01] MEDS: SENNOSIDES 8.6 MG TABLET GT ×2 (09:37→21:34)
--- NOTE | 2025-02-01 19:35 | PC.NURSE ---
No adverse reaction noted from Zosyn for osteomyelitis . No s/s of pain or discomfort. GT feeding tolerated well.
[2025-02-01] MEDS: ACETAMINOPHEN 325 MG TABLET GT (21:35)
[2025-02-02] VITALS (8 sets, daily range): BP systolic 91–100; BP diastolic 56–69; PULSE 101–116; RESP 17–29; TEMP 36.1–36.9; O2SAT 95–100
[2025-02-02] MEDS: IPRATROPIUM/ALBUTEROL 3 ML AMPUL.NEB INH ×4 (00:24→20:10)
[2025-02-02] MEDS: BACLOFEN 10 MG TABLET 5 MG GT ×3 (05:24→22:28)
[2025-02-02] MEDS: NON-FORMULARY *SEE COMMENTS* 1 EA EA 250 EA GT ×2 (05:24→22:29)
[2025-02-02] MEDS: MIDODRINE 10 MG TABLET GT ×3 (05:24→22:36)
[2025-02-02] MEDS: METOCLOPRAMIDE 5 MG TABLET GT ×3 (05:24→22:28)
[2025-02-02] MEDS: PIPERACILLIN SODIUM/TAZOBACTAM 3.375 GM VIAL IV ×2 (05:51→23:40)
--- NOTE | 2025-02-02 06:38 | PC.NURSE ---
Resident remains on IV antibiotics Zosyn for Osteomyelitis and ESBL, no side effects noted, PICC line ports remain patent.
[2025-02-02] MEDS: APIXABAN 5 MG TABLET GT ×2 (09:23→21:21)
[2025-02-02] MEDS: DEX/HYPRO/GLY ARTIFICAL TEARS 225 DROP/15 ML BTL BOTH EYES (09:24)
[2025-02-02] MEDS: FLUDROCORTISONE 0.1 MG GT ×2 (09:25→21:23)
[2025-02-02] MEDS: MULTIVITAMIN W MINERALS 1 EACH TABLET GT (09:26)
[2025-02-02] MEDS: NON-FORMULARY *SEE COMMENTS* 1 EA EA 100 EA GT ×2 (09:27→21:25)
[2025-02-02] MEDS: NON-FORMULARY *SEE COMMENTS* 1 EA EA 0.8 EA GT (09:31)
[2025-02-02] MEDS: PANTOPRAZOLE 40 MG GRANPKT.DR GT (09:33)
[2025-02-02] MEDS: SENNOSIDES 8.6 MG TABLET GT ×2 (09:33→21:27)
[2025-02-02] MEDS: NON-FORMULARY *SEE COMMENTS* 1 EA EA 600 EA GT ×2 (09:33→21:27)
[2025-02-03] VITALS (11 sets, daily range): BP systolic 93–119; BP diastolic 55–80; PULSE 102–120; RESP 16–36; TEMP 36.9–38.9; O2SAT 95–100
[2025-02-03] MEDS: IPRATROPIUM/ALBUTEROL 3 ML AMPUL.NEB INH ×4 (00:42→19:47)
[2025-02-03] MEDS: ACETAMINOPHEN 325 MG TABLET 650 MG GT (00:43)
[2025-02-03] MEDS: PIPERACILLIN SODIUM/TAZOBACTAM 3.375 GM VIAL IV ×4 (05:45→23:50)
[2025-02-03] MEDS: BACLOFEN 10 MG TABLET 5 MG GT ×3 (05:49→21:17)
[2025-02-03] MEDS: METOCLOPRAMIDE 5 MG TABLET GT ×3 (05:50→21:17)
[2025-02-03] MEDS: NON-FORMULARY *SEE COMMENTS* 1 EA EA 250 EA GT ×3 (05:51→21:16)
[2025-02-03] MEDS: MIDODRINE 10 MG TABLET GT ×2 (05:51→21:17)
--- NOTE | 2025-02-03 06:47 | PC.NURSE ---
Resident continues on Doxycycline hyclate 100mg for osteoarthritis and ESBL BID no s/s of adverse reaction noted. Resident had an elevated temp of 102.0 rectally, Doctor and RN was notified of elevated temp. Doctor ordered labs and Tylenol was given for the temp and cooling measures where applied. Will continue to monitor resident and call light within reach. Temp was taken around 0530 and it was 99.3 rectally.
--- NOTE | 2025-02-03 07:06 | PC.NURSE ---
made aware of episodes of fever at night, new order for CBC for today, resident is currently on Zosyn IV [id number] and Doxy GT for osteomylitis and ESBL, central line to right upper chest with two lumen, no adverse reaction or side effects noted, water given via Gtube, HOB elevated, call light within reach.
[2025-02-03] MEDS: DEX/HYPRO/GLY ARTIFICAL TEARS 225 DROP/15 ML BTL BOTH EYES (10:03)
[2025-02-03] MEDS: APIXABAN 5 MG TABLET GT ×2 (10:03→21:18)
[2025-02-03] MEDS: FLUDROCORTISONE 0.1 MG GT ×2 (10:05→21:18)
[2025-02-03] MEDS: MULTIVITAMIN W MINERALS 1 EACH TABLET GT (10:06)
[2025-02-03] MEDS: NON-FORMULARY *SEE COMMENTS* 1 EA EA 100 EA GT ×2 (10:08→21:18)
[2025-02-03] MEDS: NON-FORMULARY *SEE COMMENTS* 1 EA EA 0.8 EA GT (10:08)
[2025-02-03] MEDS: NON-FORMULARY *SEE COMMENTS* 1 EA EA 600 EA GT ×2 (10:09→21:17)
[2025-02-03] MEDS: PANTOPRAZOLE 40 MG GRANPKT.DR GT (10:10)
[2025-02-03] MEDS: SENNOSIDES 8.6 MG TABLET GT ×2 (10:12→21:17)
--- NOTE | 2025-02-03 10:35 | PC.IP ---
At 1020 spoke with RP, Dee Smith regarding vaccine status for Arturo. Discussed Arturo's status on IV therapy for Osteomyelitis and plan to move Arturo back to other facility after antibiotics. RP refused vaccine administration at this facility while resident is on antibiotics and generally vaccines are not administered during antibiotic therapy. Explained PCV 20 and that other facility could administer upon Arturo's return there. Should resident remain here, will discuss administration of PCV 20 at that time.
[2025-02-03 13:53] LABS: Basophils # (Auto) 0.2 Thou/mm3 (0.0-0.2); Basophils % (Auto) 1 % (0-2.5); Eosinophils # (Auto) 1.6 Thou/mm3 (0.0-0.5); Eosinophils % (Auto) 8 % (0-10); Hematocrit 24.7 % (41.0-53.0); Immature Granulocytes Auto 0.09 Thou/mm3 (0.00-0.00); Lymphocytes # (Auto) 1.6 Thou/mm3 (1.0-4.8); Lymphocytes % (Auto) 8 % (10-50); Mean Corpuscular HGB Conc 32.4 g/dl (31.0-37.0); Mean Corpuscular Hemoglobin 29.6 pg (25.0-35.0); Mean Corpuscular Volume 92 fL (80-100); Monocytes # (Auto) 1.3 Thou/mm3 (0.0-0.8); Monocytes % (Auto) 7 % (0-12); Neutrophils # (Auto) 14.3 Thou/mm3 (1.8-7.7); Neutrophils % (Auto) 75 % (37-80); Nucleated Red Blood Cell # 0.00 Thou/mm3 (0.00-0.00); Nucleated Red Blood Cell % 0 /100 WBC (0); Platelet Count 327 Thou/mm3 (140-440); RDW Standard Deviation 50.4 fL (35.1-43.9); Red Blood Count 2.70 Miln/mm3 (4.50-5.90); White Blood Count 19.0 Thou/mm3 (3.8-10.6)
[2025-02-03 14:19] LABS: Hemoglobin 8.0 g/dL (13.5-16.0)
--- NOTE | 2025-02-03 20:37 | PC.NURSE ---
Notified Dr Silverio regarding resident's recent CBC results, WBC: 19.0, currently on Zosyn IV Q6 for Osteomyelitis to wound on sacrum. New order to repeat CBC on saturday02/05/25 and notify him of results.
[2025-02-04] VITALS (7 sets, daily range): BP systolic 90–93; BP diastolic 48–54; PULSE 98–124; RESP 16–32; TEMP 36.6–37.2; O2SAT 95–100
[2025-02-04] MEDS: IPRATROPIUM/ALBUTEROL 3 ML AMPUL.NEB INH ×4 (00:31→18:38)
[2025-02-04] MEDS: METOCLOPRAMIDE 5 MG TABLET GT ×3 (05:18→21:01)
[2025-02-04] MEDS: BACLOFEN 10 MG TABLET 5 MG GT ×3 (05:18→21:02)
[2025-02-04] MEDS: NON-FORMULARY *SEE COMMENTS* 1 EA EA 250 EA GT (05:20)
[2025-02-04] MEDS: MIDODRINE 10 MG TABLET GT ×3 (05:20→21:01)
[2025-02-04] MEDS: PIPERACILLIN SODIUM/TAZOBACTAM 3.375 GM VIAL IV ×4 (06:48→23:43)
[2025-02-04] MEDS: APIXABAN 5 MG TABLET GT ×2 (08:46→21:02)
[2025-02-04] MEDS: DEX/HYPRO/GLY ARTIFICAL TEARS 225 DROP/15 ML BTL BOTH EYES (08:47)
[2025-02-04] MEDS: FLUDROCORTISONE 0.1 MG GT ×2 (08:47→21:02)
[2025-02-04] MEDS: MULTIVITAMIN W MINERALS 1 EACH TABLET GT (08:49)
[2025-02-04] MEDS: NON-FORMULARY *SEE COMMENTS* 1 EA EA 100 EA GT ×2 (08:50→21:00)
[2025-02-04] MEDS: NON-FORMULARY *SEE COMMENTS* 1 EA EA 0.8 EA GT (08:51)
[2025-02-04] MEDS: SENNOSIDES 8.6 MG TABLET GT ×2 (08:53→21:00)
[2025-02-04] MEDS: NON-FORMULARY *SEE COMMENTS* 1 EA EA 600 EA GT ×2 (08:53→21:00)
[2025-02-04] MEDS: PANTOPRAZOLE 40 MG GRANPKT.DR GT (08:53)
--- NOTE | 2025-02-04 18:03 | PC.NURSE ---
Continue on Zosyn and Doxycycline PGT for osteomyelitis, ESBL. No adverse reaction noted. GT feeding tolerated well. Remains on mechanical ventilator, no s/s of respiratory distress noted
--- NOTE | 2025-02-04 23:05 | PD.SAPROG ---
Progress Note - SubAcute DIAGNOSIS (1) Osteomyelitis: Status: Chronic (2) DVT (deep venous thrombosis): Status: Chronic (3) Chronic respiratory failure: Status: Chronic (4) Ventilator dependent: Status: Chronic (5) G tube feedings: Status: Chronic (6) Tracheostomy in place: Status: Chronic (7) Seizures: Status: Chronic (8) Adrenal insufficiency: Status: Chronic (9) Ureteric obstruction: Status: Chronic OBJECTIVE Most recent vital signs: Last Vital Signs Temp 97.9 F 02/04/25 18:00 Pulse 102 H 02/04/25 18:39 Resp 20 02/04/25 18:39 BP 93/54 L 02/04/25 18:00 Pulse Ox 18 L 02/04/25 18:39 O2 Del Method Mechanical Ventilation 02/03/25 18:00 FiO2 40 02/04/25 18:39 Neurological:: awake (no cognizant response) Respiratory:: lungs clear (ventilator dependent) Cardiovascular: RRR Abdomen: soft Extremities:: deformities (spastic contractures) Decubitus:: unchanged (osteomyelitis) Tracheostomy:: to ventilator Feeding per:: G tube Complaints:: none ASSESSMENT & PLAN Assessment: 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 Recently treated in Acute care for septic shock from chronic osteomyelitis and pneumonia and now with a central line for continued antibiotics is admitted to [facility] for hand brush filler treatment. Tolerating antibiotics. afebrile Plan: Current tratment reviewed and continued
[2025-02-05] VITALS (10 sets, daily range): BP systolic 90–99; BP diastolic 58–65; PULSE 91–118; RESP 24–30; TEMP 36.7–39; O2SAT 93–100
[2025-02-05] MEDS: IPRATROPIUM/ALBUTEROL 3 ML AMPUL.NEB INH ×4 (00:21→16:10)
[2025-02-05] MEDS: BACLOFEN 10 MG TABLET 5 MG GT ×3 (05:18→21:19)
[2025-02-05] MEDS: METOCLOPRAMIDE 5 MG TABLET GT ×3 (05:18→21:20)
[2025-02-05] MEDS: MIDODRINE 10 MG TABLET GT ×3 (05:18→21:21)
[2025-02-05] MEDS: NON-FORMULARY *SEE COMMENTS* 1 EA EA 250 EA GT ×3 (05:18→21:21)
[2025-02-05] MEDS: ACETAMINOPHEN 325 MG TABLET GT (05:19)
[2025-02-05] MEDS: PIPERACILLIN SODIUM/TAZOBACTAM 3.375 GM VIAL IV ×3 (06:23→17:32)
[2025-02-05] MEDS: APIXABAN 5 MG TABLET GT ×2 (08:00→21:14)
[2025-02-05] MEDS: DEX/HYPRO/GLY ARTIFICAL TEARS 225 DROP/15 ML BTL BOTH EYES (08:00)
[2025-02-05] MEDS: FLUDROCORTISONE 0.1 MG GT ×2 (08:01→21:17)
[2025-02-05] MEDS: MULTIVITAMIN W MINERALS 1 EACH TABLET GT (08:04)
[2025-02-05] MEDS: NON-FORMULARY *SEE COMMENTS* 1 EA EA 100 EA GT ×2 (08:05→21:18)
[2025-02-05] MEDS: NON-FORMULARY *SEE COMMENTS* 1 EA EA 600 EA GT ×2 (08:05→21:19)
[2025-02-05] MEDS: NON-FORMULARY *SEE COMMENTS* 1 EA EA 0.8 EA GT (08:05)
[2025-02-05] MEDS: SENNOSIDES 8.6 MG TABLET GT ×2 (08:06→21:19)
[2025-02-05] MEDS: PANTOPRAZOLE 40 MG GRANPKT.DR GT (08:06)
[2025-02-05 10:08] LABS: Basophils # (Auto) 0.2 Thou/mm3 (0.0-0.2); Basophils % (Auto) 1 % (0-2.5); Eosinophils # (Auto) 3.1 Thou/mm3 (0.0-0.5); Eosinophils % (Auto) 17 % (0-10); Hematocrit 28.6 % (41.0-53.0); Hemoglobin 8.8 g/dL (13.5-16.0); Immature Granulocytes Auto 0.12 Thou/mm3 (0.00-0.00); Lymphocytes # (Auto) 1.5 Thou/mm3 (1.0-4.8); Lymphocytes % (Auto) 8 % (10-50); Mean Corpuscular HGB Conc 30.8 g/dl (31.0-37.0); Mean Corpuscular Hemoglobin 29.4 pg (25.0-35.0); Mean Corpuscular Volume 96 fL (80-100); Monocytes # (Auto) 1.2 Thou/mm3 (0.0-0.8); Monocytes % (Auto) 7 % (0-12); Neutrophils # (Auto) 12.3 Thou/mm3 (1.8-7.7); Neutrophils % (Auto) 67 % (37-80); Nucleated Red Blood Cell # 0.00 Thou/mm3 (0.00-0.00); Nucleated Red Blood Cell % 0 /100 WBC (0); Platelet Count 369 Thou/mm3 (140-440); RDW Standard Deviation 52.2 fL (35.1-43.9); Red Blood Count 2.99 Miln/mm3 (4.50-5.90); White Blood Count 18.4 Thou/mm3 (3.8-10.6)
[2025-02-05] MEDS: ACETAMINOPHEN 325 MG TABLET 650 MG GT (15:57)
--- NOTE | 2025-02-05 16:08 | PC.SS ---
This SSD met with resident grandmother who provided history of earlier years. Grandmother is at bedside and will be visiting often, grandmother expressed her wanting resident to stay in current facility for terminologist subacute care. This SSD will speak with resident CLARISSA Price about DC plan. Resident appears to respond to grandmothers voice, he was seen smiling while grandmother was speaking to him. This SSD will make daily contact and monitor for changes in mood and behavior.
--- NOTE | 2025-02-05 16:27 | PC.SS ---
Resident grandmother spoke with this SSD and asked for resident to be clean shaved and have a haircut. Resident grandmother sent RP Dee a text message regarding the facial hair. This SSD informed nurse caring for resident and charge nurse of family request. Grandmother purchased facial hair antwan and is in room.
--- NOTE | 2025-02-05 18:19 | PC.NURSE ---
Remains on Zosyn as ordered for Osteomyelitis, ESBL. No adverse reaction noted. Tylenol 650 mg PGT given at 15:57 for a temp of 102.2, no s/s of respiratory distress noted. Extra fluid given via PGT. Cooling measures provided. Latest temp at this time 99.3 rectally. Turned and repositioned at intervals. Remains on contact isolation.
[2025-02-06] VITALS: BP 106/73; PULSE 96; RESP 32; TEMP 36.1
[2025-02-06 01:04] VITALS: PULSE 105; PULSE 108; RESP 23; RESP 30; O2SAT 100; O2SAT 99
[2025-02-06] MEDS: IPRATROPIUM/ALBUTEROL 3 ML AMPUL.NEB INH ×4 (01:04→19:13)
[2025-02-06] MEDS: BACLOFEN 10 MG TABLET 5 MG GT ×3 (05:25→21:07)
[2025-02-06] MEDS: MIDODRINE 10 MG TABLET GT ×3 (05:26→21:14)
[2025-02-06] MEDS: METOCLOPRAMIDE 5 MG TABLET GT ×3 (05:26→21:07)
[2025-02-06] MEDS: NON-FORMULARY *SEE COMMENTS* 1 EA EA 250 EA GT ×3 (05:26→21:10)
[2025-02-06] MEDS: PIPERACILLIN SODIUM/TAZOBACTAM 3.375 GM VIAL IV ×6 (05:43→23:21)
--- NOTE | 2025-02-06 05:45 | PC.NURSE ---
Resident is currently on Zosyn IV [id number] and Doxy GT for osteomylitis and ESBL, central line to right upper chest with two lumen, no adverse reaction or side effects noted, water given via Gtube, HOB elevated, call light within reach.
[2025-02-06 06:00] VITALS: BP 92/57; PULSE 116; RESP 30; TEMP 36.4; O2SAT 99
[2025-02-06 06:10] VITALS: PULSE 92; PULSE 95; RESP 25; RESP 29; O2SAT 100; O2SAT 98
[2025-02-06] MEDS: DEX/HYPRO/GLY ARTIFICAL TEARS 225 DROP/15 ML BTL BOTH EYES (08:58)
[2025-02-06] MEDS: SENNOSIDES 8.6 MG TABLET GT ×2 (08:58→21:05)
[2025-02-06] MEDS: NON-FORMULARY *SEE COMMENTS* 1 EA EA 600 EA GT ×2 (08:58→21:05)
[2025-02-06] MEDS: FLUDROCORTISONE 0.1 MG GT ×2 (08:58→21:01)
[2025-02-06] MEDS: NON-FORMULARY *SEE COMMENTS* 1 EA EA 0.8 EA GT (08:58)
[2025-02-06] MEDS: PANTOPRAZOLE 40 MG GRANPKT.DR GT (08:58)
[2025-02-06] MEDS: NON-FORMULARY *SEE COMMENTS* 1 EA EA 100 EA GT ×2 (08:58→21:04)
[2025-02-06] MEDS: MULTIVITAMIN W MINERALS 1 EACH TABLET GT (08:58)
[2025-02-06] MEDS: ACETAMINOPHEN 325 MG TABLET 650 MG GT ×2 (09:05→15:43)
[2025-02-06 12:04] VITALS: PULSE 93; PULSE 97; RESP 24; RESP 28; O2SAT 100; O2SAT 96
--- NOTE | 2025-02-06 18:34 | PC.NURSE ---
Continue on abt therapy. No adverse reaction noted. tolerated well. continue to monitor.
[2025-02-06 19:15] VITALS: PULSE 98; RESP 16; RESP 18; O2SAT 98
--- NOTE | 2025-02-06 22:25 | PC.NURSE ---
Purple port on central line flushing sluggishly but with good blood return. Red port not flushing. Dsg intact to central line, no redness noted.
[2025-02-07] VITALS: BP 106/71; PULSE 106; RESP 17; TEMP 36.1
[2025-02-07] MEDS: IPRATROPIUM/ALBUTEROL 3 ML AMPUL.NEB INH ×4 (00:42→18:40)
[2025-02-07 00:46] VITALS: PULSE 92; PULSE 94; RESP 24; O2SAT 98
[2025-02-07] MEDS: PIPERACILLIN SODIUM/TAZOBACTAM 3.375 GM VIAL IV ×4 (05:02→23:14)
[2025-02-07] MEDS: BACLOFEN 10 MG TABLET 5 MG GT ×3 (05:23→21:03)
[2025-02-07] MEDS: METOCLOPRAMIDE 5 MG TABLET GT ×3 (05:24→21:03)
[2025-02-07] MEDS: NON-FORMULARY *SEE COMMENTS* 1 EA EA 250 EA GT ×3 (05:25→21:03)
[2025-02-07] MEDS: MIDODRINE 10 MG TABLET GT ×3 (05:25→21:03)
--- NOTE | 2025-02-07 06:00 | PC.NURSE ---
Resident receiving Zosyn IV every 6 hours and GT Doxycycline twice/day for osteomylitis and ESBL. No adverse reaction noted. No fevers noted during the shift.
[2025-02-07 06:15] VITALS: PULSE 94; PULSE 97; RESP 22; RESP 23; O2SAT 97; O2SAT 99
[2025-02-07] MEDS: DEX/HYPRO/GLY ARTIFICAL TEARS 225 DROP/15 ML BTL BOTH EYES (09:18)
[2025-02-07] MEDS: MULTIVITAMIN W MINERALS 1 EACH TABLET GT (09:19)
[2025-02-07] MEDS: NON-FORMULARY *SEE COMMENTS* 1 EA EA 600 EA GT ×2 (09:19→20:57)
[2025-02-07] MEDS: PANTOPRAZOLE 40 MG GRANPKT.DR GT (09:19)
[2025-02-07] MEDS: FLUDROCORTISONE 0.1 MG GT ×2 (09:19→20:55)
[2025-02-07] MEDS: SENNOSIDES 8.6 MG TABLET GT ×2 (09:19→20:57)
[2025-02-07] MEDS: NON-FORMULARY *SEE COMMENTS* 1 EA EA 0.8 EA GT (09:19)
[2025-02-07] MEDS: NON-FORMULARY *SEE COMMENTS* 1 EA EA 100 EA GT ×2 (09:19→20:56)
[2025-02-07] MEDS: ACETAMINOPHEN 325 MG TABLET 650 MG GT (10:00)
[2025-02-07 13:05] VITALS: PULSE 94; PULSE 96; RESP 23; RESP 25; O2SAT 97; O2SAT 99
--- NOTE | 2025-02-07 18:08 | PC.NURSE ---
Continue on IV antibiotic no adverse effect noted.
[2025-02-07 18:40] VITALS: PULSE 97; RESP 23; O2SAT 100; O2SAT 99
[2025-02-08] VITALS (9 sets, daily range): BP systolic 90–114; BP diastolic 52–75; PULSE 91–121; RESP 16–24; TEMP 36.1–38.2; O2SAT 95–100
[2025-02-08] MEDS: IPRATROPIUM/ALBUTEROL 3 ML AMPUL.NEB INH ×4 (01:23→19:51)
[2025-02-08] MEDS: METOCLOPRAMIDE 5 MG TABLET GT ×3 (05:37→21:17)
[2025-02-08] MEDS: BACLOFEN 10 MG TABLET 5 MG GT ×3 (05:37→21:17)
[2025-02-08] MEDS: MIDODRINE 10 MG TABLET GT ×2 (05:38→14:28)
[2025-02-08] MEDS: NON-FORMULARY *SEE COMMENTS* 1 EA EA 250 EA GT ×3 (05:39→21:17)
[2025-02-08] MEDS: PIPERACILLIN SODIUM/TAZOBACTAM 3.375 GM VIAL IV ×2 (06:10→12:03)
--- NOTE | 2025-02-08 07:05 | PC.NURSE ---
Resident continues on Zosyn IV every 6 hours and doxycycline via gt BID. NO fever noted, no adverse reaction note.
[2025-02-08] MEDS: DEX/HYPRO/GLY ARTIFICAL TEARS 225 DROP/15 ML BTL BOTH EYES (08:58)
[2025-02-08] MEDS: FLUDROCORTISONE 0.1 MG GT ×2 (08:59→21:15)
[2025-02-08] MEDS: NON-FORMULARY *SEE COMMENTS* 1 EA EA 600 EA GT ×2 (09:00→21:17)
[2025-02-08] MEDS: NON-FORMULARY *SEE COMMENTS* 1 EA EA 0.8 EA GT (09:00)
[2025-02-08] MEDS: NON-FORMULARY *SEE COMMENTS* 1 EA EA 100 EA GT ×2 (09:00→21:16)
[2025-02-08] MEDS: PANTOPRAZOLE 40 MG GRANPKT.DR GT (09:01)
[2025-02-08] MEDS: SENNOSIDES 8.6 MG TABLET GT (09:02)
[2025-02-08] MEDS: ACETAMINOPHEN 325 MG TABLET 650 MG GT (11:45)
--- NOTE | 2025-02-08 14:47 | PC.NURSE ---
Remains on IV an therapy. NO side effects of ABT noted. tolerated well. Central Line Purple port not flushing. Red remains patent.
--- NOTE | 2025-02-08 21:59 | PD.SAPROG ---
Progress Note - SubAcute DIAGNOSIS (1) Osteomyelitis: Status: Chronic (2) DVT (deep venous thrombosis): Status: Chronic (3) Chronic respiratory failure: Status: Chronic (4) Ventilator dependent: Status: Chronic (5) G tube feedings: Status: Chronic (6) Tracheostomy in place: Status: Chronic (7) Seizures: Status: Chronic (8) Adrenal insufficiency: Status: Chronic (9) Ureteric obstruction: Status: Chronic OBJECTIVE Most recent vital signs: Last Vital Signs Temp 97.5 F 02/08/25 18:00 Pulse 106 H 02/08/25 19:52 Resp 16 02/08/25 19:52 BP 114/75 02/08/25 18:00 Pulse Ox 99 02/08/25 19:52 O2 Del Method Mechanical Ventilation 02/08/25 18:00 FiO2 40 02/08/25 19:52 Neurological:: awake (no cognizant response) Respiratory:: lungs clear (ventilator dependent) Cardiovascular: RRR Abdomen: soft Extremities:: deformities (spastic contractures) Decubitus:: unchanged (osteomyelitis) Tracheostomy:: to ventilator Feeding per:: G tube Complaints:: none ASSESSMENT & PLAN Assessment: 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 Tolerating antibiotics. afebrile Plan: Current tratment reviewed and continued
[2025-02-09] VITALS (9 sets, daily range): BP systolic 90–126; BP diastolic 58–76; PULSE 99–115; RESP 16–33; TEMP 36.2–36.6; O2SAT 96–99; BMI 21.5
[2025-02-09] MEDS: IPRATROPIUM/ALBUTEROL 3 ML AMPUL.NEB INH ×4 (00:26→19:41)
[2025-02-09] MEDS: PIPERACILLIN SODIUM/TAZOBACTAM 3.375 GM VIAL IV ×4 (00:39→23:56)
[2025-02-09] MEDS: ACETAMINOPHEN 325 MG TABLET 650 MG GT (05:22)
[2025-02-09] MEDS: MIDODRINE 10 MG TABLET GT ×2 (05:23→14:01)
[2025-02-09] MEDS: NON-FORMULARY *SEE COMMENTS* 1 EA EA 250 EA GT ×3 (05:23→21:54)
[2025-02-09] MEDS: BACLOFEN 10 MG TABLET 5 MG GT ×3 (05:23→21:18)
[2025-02-09] MEDS: METOCLOPRAMIDE 5 MG TABLET GT ×3 (05:23→21:18)
[2025-02-09] MEDS: FLUDROCORTISONE 0.1 MG GT ×2 (08:46→21:16)
[2025-02-09] MEDS: DEX/HYPRO/GLY ARTIFICAL TEARS 225 DROP/15 ML BTL BOTH EYES (08:46)
[2025-02-09] MEDS: NON-FORMULARY *SEE COMMENTS* 1 EA EA 100 EA GT ×2 (08:48→21:17)
[2025-02-09] MEDS: NON-FORMULARY *SEE COMMENTS* 1 EA EA 600 EA GT ×2 (08:52→21:18)
[2025-02-09] MEDS: PANTOPRAZOLE 40 MG GRANPKT.DR GT (08:59)
[2025-02-09] MEDS: MULTIVITAMIN W MINERALS 1 EACH TABLET GT (09:01)
[2025-02-09] MEDS: ACETAMINOPHEN 325 MG TABLET GT (15:15)
[2025-02-10] VITALS: BP 95/59; PULSE 97; RESP 28; TEMP 36.3; O2SAT 98
[2025-02-10] MEDS: IPRATROPIUM/ALBUTEROL 3 ML AMPUL.NEB INH ×4 (02:00→18:23)
[2025-02-10 02:02] VITALS: PULSE 105; RESP 16; RESP 17; O2SAT 99
[2025-02-10] MEDS: BACLOFEN 10 MG TABLET 5 MG GT ×3 (05:31→21:39)
[2025-02-10] MEDS: MIDODRINE 10 MG TABLET GT ×3 (05:32→21:40)
[2025-02-10] MEDS: METOCLOPRAMIDE 5 MG TABLET GT ×3 (05:32→21:40)
[2025-02-10] MEDS: NON-FORMULARY *SEE COMMENTS* 1 EA EA 250 EA GT ×3 (05:34→21:41)
[2025-02-10] MEDS: PIPERACILLIN SODIUM/TAZOBACTAM 3.375 GM VIAL IV ×2 (05:54→12:05)
[2025-02-10 05:57] VITALS: BP 94/56; PULSE 84; RESP 24; TEMP 36.6; O2SAT 99
[2025-02-10 07:22] VITALS: PULSE 105; PULSE 106; RESP 16; O2SAT 96; O2SAT 99
[2025-02-10] MEDS: DEX/HYPRO/GLY ARTIFICAL TEARS 225 DROP/15 ML BTL BOTH EYES (08:30)
[2025-02-10] MEDS: FLUDROCORTISONE 0.1 MG GT ×2 (08:32→20:33)
[2025-02-10] MEDS: MULTIVITAMIN W MINERALS 1 EACH TABLET GT (08:32)
[2025-02-10] MEDS: NON-FORMULARY *SEE COMMENTS* 1 EA EA 100 EA GT ×2 (08:33→20:34)
[2025-02-10] MEDS: PANTOPRAZOLE 40 MG GRANPKT.DR GT (08:33)
[2025-02-10] MEDS: NON-FORMULARY *SEE COMMENTS* 1 EA EA 600 EA GT ×2 (08:33→20:34)
--- NOTE | 2025-02-10 10:55 | PC.SS ---
IDT Note: resident RP Orlando/aunt and grandmother Priscila attended IDT in person, they had questions regarding plan of care. all questions answered with no other concerns. DON asked about DC planning at which time both RP and grandmother stated they would like resident to remain in current care for termite treater subacute care as they feel it is best for him to remain in a hospital setting rather than returning to [facility]. This SSD to speak with family about transitioning resident and all belongings to current placement from [facility]. RP has provided [facility] manager case management number to call about bed hold and DC planning from [facility]. This SSD to make contact and update family and IDT.
--- NOTE | 2025-02-10 10:59 | PC.SS ---
CLARISSA Price has approved for resident grandmother Priscila to be added to contact sheet and will be able to get information on resident. Dee remains immediate contact and will make all medical decisions and will give all consents for treatment. Face sheet has been updated and put inplace.
[2025-02-10 12:44] VITALS: PULSE 93; PULSE 96; RESP 16; O2SAT 100; O2SAT 98
[2025-02-10 18:23] VITALS: PULSE 95; RESP 16; O2SAT 97; O2SAT 98
--- NOTE | 2025-02-10 22:57 | ESPR_ITS ---
Progress Note - SubAcute DIAGNOSIS (1) Osteomyelitis: Status: Chronic (2) DVT (deep venous thrombosis): Status: Chronic (3) Chronic respiratory failure: Status: Chronic (4) Ventilator dependent: Status: Chronic (5) G tube feedings: Status: Chronic (6) Tracheostomy in place: Status: Chronic (7) Seizures: Status: Chronic (8) Adrenal insufficiency: Status: Chronic (9) Ureteric obstruction: Status: Chronic OBJECTIVE Most recent vital signs: Last Vital Signs Temp 97.8 F 02/10/25 05:57 Pulse 95 02/10/25 18:23 Resp 16 02/10/25 18:23 BP 94/56 L 02/10/25 05:57 Pulse Ox 98 02/10/25 18:23 O2 Del Method Mechanical Ventilation 02/10/25 05:57 FiO2 40 02/10/25 18:23 Neurological:: awake (no cognizant response) Respiratory:: lungs clear (ventilator dependent) Cardiovascular: RRR Abdomen: soft Extremities:: deformities (spastic contractures) Decubitus:: unchanged (osteomyelitis) Tracheostomy:: to ventilator Feeding per:: G tube Complaints:: none ASSESSMENT & PLAN Assessment: 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 Recently treated in Acute care for septic shock from chronic osteomyelitis and pneumonia and now with a central line for continued antibiotics is admitted to [facility] for residential treatment. Tolerating antibiotics. afebrile Plan: Current tratment reviewed and continued
--- NOTE | 2025-02-10 22:59 | ESPR_ITS ---
Progress Note - SubAcute DIAGNOSIS (1) Osteomyelitis: Status: Chronic (2) DVT (deep venous thrombosis): Status: Chronic (3) Chronic respiratory failure: Status: Chronic (4) Ventilator dependent: Status: Chronic (5) G tube feedings: Status: Chronic (6) Tracheostomy in place: Status: Chronic (7) Seizures: Status: Chronic (8) Adrenal insufficiency: Status: Chronic (9) Ureteric obstruction: Status: Chronic OBJECTIVE Most recent vital signs: Last Vital Signs Temp 97.8 F 02/10/25 05:57 Pulse 95 02/10/25 18:23 Resp 16 02/10/25 18:23 BP 94/56 L 02/10/25 05:57 Pulse Ox 98 02/10/25 18:23 O2 Del Method Mechanical Ventilation 02/10/25 05:57 FiO2 40 02/10/25 18:23 Neurological:: awake (no cognizant response) Respiratory:: lungs clear (ventilator dependent) Cardiovascular: RRR Abdomen: soft Extremities:: deformities (spastic contractures) Decubitus:: unchanged (osteomyelitis) Tracheostomy:: to ventilator Feeding per:: G tube Complaints:: none ASSESSMENT & PLAN Assessment: 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 Recently treated in Acute care for septic shock from chronic osteomyelitis and pneumonia and now with a central line for continued antibiotics is admitted to [facility] for skilled nursing treatment. Tolerating antibiotics. afebrile Plan: Current tratment reviewed and continued
[2025-02-11] VITALS (8 sets, daily range): BP systolic 91–104; BP diastolic 60–70; PULSE 73–100; RESP 16–28; TEMP 36.4–36.6; O2SAT 96–100
[2025-02-11] MEDS: PIPERACILLIN SODIUM/TAZOBACTAM 3.375 GM VIAL IV ×5 (00:09→23:16)
[2025-02-11] MEDS: IPRATROPIUM/ALBUTEROL 3 ML AMPUL.NEB INH ×4 (01:07→19:15)
[2025-02-11] MEDS: NON-FORMULARY *SEE COMMENTS* 1 EA EA 250 EA GT ×3 (05:38→21:07)
[2025-02-11] MEDS: METOCLOPRAMIDE 5 MG TABLET GT ×3 (05:38→21:06)
[2025-02-11] MEDS: MIDODRINE 10 MG TABLET GT ×3 (05:38→21:07)
[2025-02-11] MEDS: BACLOFEN 10 MG TABLET 5 MG GT ×3 (05:38→21:06)
--- NOTE | 2025-02-11 06:40 | PC.NURSE ---
Nephrostyomy output 450 ml
[2025-02-11] MEDS: DEX/HYPRO/GLY ARTIFICAL TEARS 225 DROP/15 ML BTL BOTH EYES (09:04)
[2025-02-11] MEDS: FLUDROCORTISONE 0.1 MG GT ×2 (09:04→21:05)
[2025-02-11 09:05] LABS: Basophils # (Auto) 0.2 Thou/mm3 (0.0-0.2); Basophils % (Auto) 1 % (0-2.5); Eosinophils # (Auto) 3.4 Thou/mm3 (0.0-0.5); Eosinophils % (Auto) 18 % (0-10); Hematocrit 27.9 % (41.0-53.0); Immature Granulocytes Auto 0.08 Thou/mm3 (0.00-0.00); Lymphocytes # (Auto) 1.5 Thou/mm3 (1.0-4.8); Lymphocytes % (Auto) 8 % (10-50); Mean Corpuscular HGB Conc 30.5 g/dl (31.0-37.0); Mean Corpuscular Hemoglobin 29.2 pg (25.0-35.0); Mean Corpuscular Volume 96 fL (80-100); Monocytes # (Auto) 1.2 Thou/mm3 (0.0-0.8); Monocytes % (Auto) 7 % (0-12); Neutrophils # (Auto) 12.3 Thou/mm3 (1.8-7.7); Neutrophils % (Auto) 66 % (37-80); Nucleated Red Blood Cell # 0.00 Thou/mm3 (0.00-0.00); Nucleated Red Blood Cell % 0 /100 WBC (0); Platelet Count 343 Thou/mm3 (140-440); RDW Standard Deviation 52.5 fL (35.1-43.9); Red Blood Count 2.91 Miln/mm3 (4.50-5.90); White Blood Count 18.7 Thou/mm3 (3.8-10.6)
[2025-02-11] MEDS: NON-FORMULARY *SEE COMMENTS* 1 EA EA 100 EA GT ×2 (09:05→21:06)
[2025-02-11] MEDS: MULTIVITAMIN W MINERALS 1 EACH TABLET GT (09:05)
[2025-02-11] MEDS: NON-FORMULARY *SEE COMMENTS* 1 EA EA 600 EA GT ×2 (09:05→21:06)
[2025-02-11] MEDS: PANTOPRAZOLE 40 MG GRANPKT.DR GT (09:05)
[2025-02-11 09:06] LABS: Hemoglobin 8.5 g/dL (13.5-16.0)
[2025-02-11] MEDS: ACETAMINOPHEN 325 MG TABLET GT (09:08)
[2025-02-11 09:32] LABS: Alanine Aminotransferase 32 U/L (10-49); Albumin, Serum 3.2 gm/dL (3.5-5.0); Albumin/Globulin Ratio 1.2 (1.2-2.2); Alkaline Phosphatase 147 U/L (46-116); Anion Gap 10 (7-16); Aspartate Amino Transferase 17 U/L (0-34); BUN/Creatinine Ratio 35 Ratio (12-20); Bilirubin,Total < 0.2 mg/dL (0.3-1.2); Blood Urea Nitrogen 67 mg/dL (9-23); Calcium 8.5 mg/dL (8.3-10.6); Calcium (Corrected) 9.1 mg/dL (8.5-10.1); Carbon Dioxide 29.6 mMol/L (20.0-31.0); Chloride 114 mMol/L (98-107); Creatinine (Component) 1.9 mg/dL (0.6-1.3); Estimated Creatinine Clearance 45.0 mL/min (>60); Globulin 2.6 gm/dL (2.3-3.5); Glucose 104 mg/dL (74-106); Osmolality,Calculated 324 (275-295); Phenytoin (Dilantin) 13.5 mcg/mL; Potassium 4.2 mMol/L (3.4-5.1); Sodium 154 mMol/L (136-145); Total Protein 5.8 gm/dL (5.7-8.2); eGFR 45 See Note
--- NOTE | 2025-02-11 13:14 | PC.NURSE ---
Addendum entered by Citlali Castle RN 02/11/25 13:19: Renal panel to be drawn on 02/14/25 to follow up on sodium level Original Note: Resident remains on zosyn every 6 hours until 02/23/25, no adverse reaction noted. Routine labs drawn today with WBC of 18.7, afebrile. Sodium noted to be 154. Dr Silverio reviewed the results , with order received to repeat CBC when resident completed the antibiotic , order received to give extra fluids of 500 ml q shift x 2 days.
--- NOTE | 2025-02-11 14:58 | PC.SS ---
Resident is laying in bed with head of the bed elevated with call light placed with no signs of distress. Resident remains on vent with trach in place and GT for medication and nutrition. Resident is non verbal unable to make needs known. His aunt is his decision maker. Resident has no changes in care or condition and will remain in current care and will have all subacute care needs met by staff. This SSD will continue make daily contact and will monitor for changes in mood and behavior.
--- NOTE | 2025-02-11 17:48 | PC.NURSE ---
Remains on zosyn as ordered for osteomyelitis, ESBL, no adverse reaction noted. No s/s of pain or discomfort at this time. GT feeding tolerated well. With mccarthy catheter and nephrostomy tube draining well via gravity bag.
[2025-02-12] VITALS (9 sets, daily range): BP systolic 89–119; BP diastolic 59–75; PULSE 73–115; RESP 16–26; TEMP 36.2–37.1; O2SAT 97–100
[2025-02-12] MEDS: IPRATROPIUM/ALBUTEROL 3 ML AMPUL.NEB INH ×4 (00:10→16:41)
[2025-02-12] MEDS: METOCLOPRAMIDE 5 MG TABLET GT ×3 (05:11→22:25)
[2025-02-12] MEDS: MIDODRINE 10 MG TABLET GT ×3 (05:11→22:25)
[2025-02-12] MEDS: BACLOFEN 10 MG TABLET 5 MG GT ×3 (05:11→22:25)
[2025-02-12] MEDS: NON-FORMULARY *SEE COMMENTS* 1 EA EA 250 EA GT ×3 (05:12→22:26)
--- NOTE | 2025-02-12 06:50 | PC.NURSE ---
Resident remains on IV antibiotics Zosyn for Osteomyelitis to sacral wound, no side effects noted, red port remains patent, purple port sluggish to flush
[2025-02-12] MEDS: DEX/HYPRO/GLY ARTIFICAL TEARS 225 DROP/15 ML BTL BOTH EYES (08:40)
[2025-02-12] MEDS: NON-FORMULARY *SEE COMMENTS* 1 EA EA 100 EA GT ×2 (08:41→22:00)
[2025-02-12] MEDS: NON-FORMULARY *SEE COMMENTS* 1 EA EA 600 EA GT ×2 (08:41→22:00)
[2025-02-12] MEDS: PANTOPRAZOLE 40 MG GRANPKT.DR GT (08:41)
[2025-02-12] MEDS: MULTIVITAMIN W MINERALS 1 EACH TABLET GT (08:41)
[2025-02-12] MEDS: FLUDROCORTISONE 0.1 MG GT ×2 (08:41→22:00)
[2025-02-12] MEDS: PIPERACILLIN SODIUM/TAZOBACTAM 3.375 GM VIAL IV ×2 (12:13→23:00)
[2025-02-13] VITALS: BP 94/63; PULSE 99; RESP 17; TEMP 36.9
[2025-02-13 00:02] VITALS: PULSE 106; PULSE 111; RESP 23; RESP 26; O2SAT 96; O2SAT 99
[2025-02-13] MEDS: IPRATROPIUM/ALBUTEROL 3 ML AMPUL.NEB INH ×3 (00:02→18:55)
--- NOTE | 2025-02-13 02:11 | PC.NURSE ---
VS:111/72,98.9,110,25, O2sat 97%, RT reported to this nurse resident was disconnect, resident noted to be using secondary muscles for breathing after being disconnected, made aware, new order to send resident to ER for evaluation and treatment if indicated for respiratory distress, this nurse left a voicemail to to call back facility, resident send to ER with nurse, RT and DRILL DOCTOR at [phone].
[2025-02-13 03:05] LABS: Base Excess 1 (-3-3); HCO3 27 mEq/L (20-26); Inspired Oxygen, FIO2 40 %; O2 Saturation 99 % (91-98); PCO2 48 mmHg (32.0-48.0); PO2 102 mmHg (83-108); pH, Arterial 7.36 (7.35-7.45)
[2025-02-13 03:06] LABS: Allen Test Not Performed; Puncture Site Left Brachial
[2025-02-13] MEDS: PIPERACILLIN SODIUM/TAZOBACTAM 3.375 GM VIAL IV ×4 (06:38→23:30)
[2025-02-13] MEDS: METOCLOPRAMIDE 5 MG TABLET GT ×3 (06:46→21:28)
[2025-02-13] MEDS: BACLOFEN 10 MG TABLET 5 MG GT ×3 (06:47→21:28)
[2025-02-13] MEDS: NON-FORMULARY *SEE COMMENTS* 1 EA EA 250 EA GT ×3 (06:51→21:28)
[2025-02-13] MEDS: MIDODRINE 10 MG TABLET GT ×3 (06:51→21:28)
--- NOTE | 2025-02-13 07:20 | PC.NURSE ---
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
--- NOTE | 2025-02-13 07:45 | PC.LAC ---
Resident didn't dose complete due to he was in ER and came back late in my shift. He only completed with 484ml on my shift. His also receiving antibiotic and no s/s of adverse reaction to the antibiotic. Will continue to monitor for any changes and call light within reach.
[2025-02-13] MEDS: DEX/HYPRO/GLY ARTIFICAL TEARS 225 DROP/15 ML BTL BOTH EYES (09:35)
[2025-02-13] MEDS: FLUDROCORTISONE 0.1 MG GT ×2 (09:36→20:08)
[2025-02-13] MEDS: MULTIVITAMIN W MINERALS 1 EACH TABLET GT (09:36)
[2025-02-13] MEDS: NON-FORMULARY *SEE COMMENTS* 1 EA EA 600 EA GT ×2 (09:37→20:11)
[2025-02-13] MEDS: PANTOPRAZOLE 40 MG GRANPKT.DR GT (09:37)
[2025-02-13] MEDS: NON-FORMULARY *SEE COMMENTS* 1 EA EA 100 EA GT ×2 (09:37→20:10)
[2025-02-13 12:00] VITALS: BP 111/63; PULSE 114; RESP 33; TEMP 37.2
[2025-02-13 13:25] VITALS: PULSE 92; PULSE 94; RESP 18; O2SAT 97; O2SAT 99
[2025-02-13 17:03] VITALS: BP 108/70; PULSE 109; RESP 24; TEMP 36.8
[2025-02-13 18:56] VITALS: PULSE 100; PULSE 99; RESP 20; RESP 22; O2SAT 100; O2SAT 95
[2025-02-14] VITALS (9 sets, daily range): BP systolic 96–125; BP diastolic 59–73; PULSE 88–106; RESP 16–65; TEMP 36.4–37.2; O2SAT 97–100
[2025-02-14] MEDS: IPRATROPIUM/ALBUTEROL 3 ML AMPUL.NEB INH ×4 (00:47→18:43)
[2025-02-14] MEDS: NON-FORMULARY *SEE COMMENTS* 1 EA EA 250 EA GT ×3 (05:09→21:29)
[2025-02-14] MEDS: METOCLOPRAMIDE 5 MG TABLET GT ×3 (05:09→21:28)
[2025-02-14] MEDS: BACLOFEN 10 MG TABLET 5 MG GT ×3 (05:09→21:40)
[2025-02-14] MEDS: PIPERACILLIN SODIUM/TAZOBACTAM 3.375 GM VIAL IV ×3 (05:15→23:20)
[2025-02-14] MEDS: DEX/HYPRO/GLY ARTIFICAL TEARS 225 DROP/15 ML BTL BOTH EYES (08:59)
[2025-02-14] MEDS: FLUDROCORTISONE 0.1 MG GT ×2 (09:00→20:07)
[2025-02-14] MEDS: MULTIVITAMIN W MINERALS 1 EACH TABLET GT (09:01)
[2025-02-14] MEDS: NON-FORMULARY *SEE COMMENTS* 1 EA EA 100 EA GT ×2 (09:02→20:08)
[2025-02-14] MEDS: NON-FORMULARY *SEE COMMENTS* 1 EA EA 600 EA GT ×2 (09:04→20:08)
[2025-02-14] MEDS: PANTOPRAZOLE 40 MG GRANPKT.DR GT (09:04)
[2025-02-14 10:51] LABS: Albumin, Serum 3.8 gm/dL (3.5-5.0); Anion Gap 13 (7-16); BUN/Creatinine Ratio 23 Ratio (12-20); Blood Urea Nitrogen 43 mg/dL (9-23); Calcium 8.7 mg/dL (8.3-10.6); Calcium (Corrected) 8.9 mg/dL (8.5-10.1); Carbon Dioxide 25.4 mMol/L (20.0-31.0); Chloride 110 mMol/L (98-107); Creatinine (Component) 1.9 mg/dL (0.6-1.3); Estimated Creatinine Clearance 45.0 mL/min (>60); Glucose 141 mg/dL (74-106); Osmolality,Calculated 307 (275-295); Phosphorous 3.5 mg/dL (2.4-5.1); Potassium 4.3 mMol/L (3.4-5.1); Sodium 148 mMol/L (136-145); eGFR 45 See Note
--- NOTE | 2025-02-14 11:44 | PC.NURSE ---
received renal panel result today sodium was 148 MD. order to ad 300ml of water/day for water flush then repeat renal panel in one week,order noted and carried out.
--- NOTE | 2025-02-14 13:05 | PD.SAPROG ---
Progress Note - SubAcute DIAGNOSIS (1) Osteomyelitis: Status: Chronic (2) DVT (deep venous thrombosis): Status: Chronic (3) Chronic respiratory failure: Status: Chronic (4) Ventilator dependent: Status: Chronic (5) G tube feedings: Status: Chronic (6) Tracheostomy in place: Status: Chronic (7) Seizures: Status: Chronic (8) Adrenal insufficiency: Status: Chronic (9) Ureteric obstruction: Status: Chronic OBJECTIVE Most recent vital signs: Last Vital Signs Temp 98.3 F 02/18/25 17:24 Pulse 102 H 02/18/25 18:54 Resp 20 02/18/25 18:54 BP 90/61 02/18/25 17:24 Pulse Ox 100 02/18/25 18:54 O2 Del Method Blow-by 02/18/25 05:09 FiO2 40 02/18/25 18:54 Neurological:: awake (no cognizant response) Respiratory:: lungs clear (ventilator dependent) Cardiovascular: RRR Abdomen: soft Extremities:: deformities (spastic contractures) Decubitus:: unchanged (osteomyelitis) Tracheostomy:: to ventilator Feeding per:: G tube Complaints:: none ASSESSMENT & PLAN Assessment: 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 Recently treated in Acute care for septic shock from chronic osteomyelitis and pneumonia and now with a central line for continued antibiotics is admitted to [facility] for halfway treatment. Tolerating antibiotics. afebrile Plan: Current tratment reviewed and continued
[2025-02-14] MEDS: MIDODRINE 10 MG TABLET GT ×2 (13:50→21:28)
[2025-02-15] VITALS (8 sets, daily range): BP systolic 90–95; BP diastolic 59–60; PULSE 71–101; RESP 16–27; TEMP 36–36.8; O2SAT 93–100; BMI 21.7
[2025-02-15] MEDS: IPRATROPIUM/ALBUTEROL 3 ML AMPUL.NEB INH ×4 (00:52→18:38)
[2025-02-15] MEDS: METOCLOPRAMIDE 5 MG TABLET GT ×3 (05:10→21:29)
[2025-02-15] MEDS: BACLOFEN 10 MG TABLET 5 MG GT ×3 (05:10→21:29)
[2025-02-15] MEDS: NON-FORMULARY *SEE COMMENTS* 1 EA EA 250 EA GT ×3 (05:11→21:29)
[2025-02-15] MEDS: MIDODRINE 10 MG TABLET GT ×3 (05:11→21:29)
--- NOTE | 2025-02-15 06:30 | PC.NURSE ---
Resident receiving Zosyn IV every 6 hours. No adverse reaction noted. No fever noted.
[2025-02-15 07:25] LABS: Levetiracetam (Keppra)* 19.0 mcg/mL (6.0-46.0)
[2025-02-15] MEDS: NON-FORMULARY *SEE COMMENTS* 1 EA EA 600 EA GT ×2 (08:50→20:42)
[2025-02-15] MEDS: FLUDROCORTISONE 0.1 MG GT ×2 (09:32→20:41)
[2025-02-15] MEDS: DEX/HYPRO/GLY ARTIFICAL TEARS 225 DROP/15 ML BTL BOTH EYES (09:32)
[2025-02-15] MEDS: MULTIVITAMIN W MINERALS 1 EACH TABLET GT (09:33)
[2025-02-15] MEDS: NON-FORMULARY *SEE COMMENTS* 1 EA EA 100 EA GT ×2 (09:33→20:42)
[2025-02-15] MEDS: PANTOPRAZOLE 40 MG GRANPKT.DR GT (09:34)
[2025-02-15] MEDS: PIPERACILLIN SODIUM/TAZOBACTAM 3.375 GM VIAL IV ×3 (11:34→23:29)
[2025-02-16] VITALS (8 sets, daily range): BP systolic 91–107; BP diastolic 55–73; PULSE 93–109; RESP 17–26; TEMP 36–37.1; O2SAT 99–100
[2025-02-16] MEDS: IPRATROPIUM/ALBUTEROL 3 ML AMPUL.NEB INH ×4 (00:19→18:52)
[2025-02-16] MEDS: BACLOFEN 10 MG TABLET 5 MG GT ×3 (05:00→21:11)
[2025-02-16] MEDS: NON-FORMULARY *SEE COMMENTS* 1 EA EA 250 EA GT ×3 (05:00→21:12)
[2025-02-16] MEDS: MIDODRINE 10 MG TABLET GT ×3 (05:00→21:11)
[2025-02-16] MEDS: METOCLOPRAMIDE 5 MG TABLET GT ×3 (05:00→21:11)
[2025-02-16] MEDS: PIPERACILLIN SODIUM/TAZOBACTAM 3.375 GM VIAL IV ×4 (05:42→23:00)
--- NOTE | 2025-02-16 05:53 | PC.NURSE ---
Resident is currently on Zosyn IV [id number] osteomylitis and ESBL, central line to right upper chest with two lumen, afebile, no adverse reaction or side effects noted, water given via Gtube, HOB elevated, call light within reach, no s/s of distress noted.
[2025-02-16] MEDS: MULTIVITAMIN W MINERALS 1 EACH TABLET GT (09:07)
[2025-02-16] MEDS: FLUDROCORTISONE 0.1 MG GT ×2 (09:07→21:08)
[2025-02-16] MEDS: DEX/HYPRO/GLY ARTIFICAL TEARS 225 DROP/15 ML BTL BOTH EYES (09:07)
[2025-02-16] MEDS: NON-FORMULARY *SEE COMMENTS* 1 EA EA 100 EA GT ×2 (09:09→21:09)
[2025-02-16] MEDS: NON-FORMULARY *SEE COMMENTS* 1 EA EA 600 EA GT ×2 (09:12→21:11)
[2025-02-16] MEDS: ACETAMINOPHEN 325 MG TABLET GT ×2 (09:13→21:13)
[2025-02-16] MEDS: PANTOPRAZOLE 40 MG GRANPKT.DR GT (09:13)
--- NOTE | 2025-02-16 14:45 | PC.DIETICIAN ---
Dietitian note IDT meeting: Dr. Silverio wants to increase water flushes to 800ml Q shit min due to Na+/BP levels. Thank you
[2025-02-17] VITALS (8 sets, daily range): BP systolic 100–124; BP diastolic 65–78; PULSE 99–115; RESP 16–30; TEMP 36.4–37.1; O2SAT 97–100
[2025-02-17] MEDS: IPRATROPIUM/ALBUTEROL 3 ML AMPUL.NEB INH ×4 (00:53→19:55)
[2025-02-17] MEDS: BACLOFEN 10 MG TABLET 5 MG GT ×3 (05:20→21:00)
[2025-02-17] MEDS: MIDODRINE 10 MG TABLET GT ×3 (05:21→21:00)
[2025-02-17] MEDS: METOCLOPRAMIDE 5 MG TABLET GT ×3 (05:21→21:00)
[2025-02-17] MEDS: NON-FORMULARY *SEE COMMENTS* 1 EA EA 250 EA GT ×3 (05:21→21:00)
[2025-02-17] MEDS: PIPERACILLIN SODIUM/TAZOBACTAM 3.375 GM VIAL IV ×2 (05:30→12:26)
[2025-02-17] MEDS: DEX/HYPRO/GLY ARTIFICAL TEARS 225 DROP/15 ML BTL BOTH EYES (09:47)
[2025-02-17] MEDS: FLUDROCORTISONE 0.1 MG GT ×2 (09:47→20:55)
[2025-02-17] MEDS: PANTOPRAZOLE 40 MG GRANPKT.DR GT (09:48)
[2025-02-17] MEDS: NON-FORMULARY *SEE COMMENTS* 1 EA EA 600 EA GT ×2 (09:48→20:57)
[2025-02-17] MEDS: NON-FORMULARY *SEE COMMENTS* 1 EA EA 100 EA GT ×2 (09:48→20:55)
[2025-02-17] MEDS: MULTIVITAMIN W MINERALS 1 EACH TABLET GT (09:48)
--- NOTE | 2025-02-17 11:11 | PC.SS ---
This SSD informed by IP nurse Pascual/ELIZABETH from [facility] [place] [facility] [place] called to get clinical updates on resident. She was informed by IP no information could be given to her as he is our patient and she is not on the contacts sheet. Today Pascual called this SSD to ask for clinical updates, this SSD informed her no clinical updates could be given to her and she would need to call resident CLARISSA Price to get any updates. Next IDT meeting scheduled for SaturdayFebruary 23 with [facility] and RP to be present. DC planning to be discussed at this time. RP states she would like resident to remain in current care and has requested this meeting be held as she is feeling pressured by [facility] to move him back to [facility] [place].
--- NOTE | 2025-02-17 20:09 | PC.NURSE ---
Resident continues on antibiotics via GT for ESBL in sputum. No adverse reactions noted. No signs respiratory distress. Continue to observe.
[2025-02-18] VITALS (8 sets, daily range): BP systolic 90–114; BP diastolic 61–77; PULSE 77–109; RESP 19–28; TEMP 36.3–36.9; O2SAT 98–100; BMI 21.7
[2025-02-18] MEDS: PIPERACILLIN SODIUM/TAZOBACTAM 3.375 GM VIAL IV ×4 (00:42→18:00)
[2025-02-18] MEDS: IPRATROPIUM/ALBUTEROL 3 ML AMPUL.NEB INH ×4 (02:19→18:54)
[2025-02-18] MEDS: BACLOFEN 10 MG TABLET 5 MG GT ×3 (05:01→21:02)
[2025-02-18] MEDS: METOCLOPRAMIDE 5 MG TABLET GT ×3 (05:02→21:02)
[2025-02-18] MEDS: NON-FORMULARY *SEE COMMENTS* 1 EA EA 250 EA GT ×2 (05:02→14:45)
[2025-02-18] MEDS: MIDODRINE 10 MG TABLET GT ×3 (05:02→21:02)
--- NOTE | 2025-02-18 05:50 | PC.NURSE ---
nephrostyomy output 500 ml
[2025-02-18] MEDS: DEX/HYPRO/GLY ARTIFICAL TEARS 225 DROP/15 ML BTL BOTH EYES (08:52)
[2025-02-18] MEDS: NON-FORMULARY *SEE COMMENTS* 1 EA EA 100 EA GT ×2 (08:53→20:34)
[2025-02-18] MEDS: MULTIVITAMIN W MINERALS 1 EACH TABLET GT (08:53)
[2025-02-18] MEDS: NON-FORMULARY *SEE COMMENTS* 1 EA EA 600 EA GT ×2 (08:53→20:35)
[2025-02-18] MEDS: FLUDROCORTISONE 0.1 MG GT ×2 (08:53→20:33)
[2025-02-18] MEDS: PANTOPRAZOLE 40 MG GRANPKT.DR GT (08:54)
--- NOTE | 2025-02-18 22:25 | ESPR_ITS ---
Progress Note - SubAcute DIAGNOSIS (1) Osteomyelitis: Status: Chronic (2) DVT (deep venous thrombosis): Status: Chronic (3) Chronic respiratory failure: Status: Chronic (4) Ventilator dependent: Status: Chronic (5) G tube feedings: Status: Chronic (6) Tracheostomy in place: Status: Chronic (7) Seizures: Status: Chronic (8) Adrenal insufficiency: Status: Chronic (9) Ureteric obstruction: Status: Chronic OBJECTIVE Most recent vital signs: Last Vital Signs Temp 98.3 F 02/18/25 17:24 Pulse 102 H 02/18/25 18:54 Resp 20 02/18/25 18:54 BP 90/61 02/18/25 17:24 Pulse Ox 100 02/18/25 18:54 O2 Del Method Blow-by 02/18/25 05:09 FiO2 40 02/18/25 18:54 Neurological:: awake (no cognizant response) Respiratory:: lungs clear (ventilator dependent) Cardiovascular: RRR Abdomen: soft Extremities:: deformities (spastic contractures) Decubitus:: unchanged (osteomyelitis) Tracheostomy:: to ventilator Feeding per:: G tube Complaints:: none ASSESSMENT & PLAN Assessment: 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 Recently treated in Acute care for septic shock from chronic osteomyelitis and pneumonia and now with a central line for continued antibiotics is admitted to [facility]. Tolerating antibiotics. afebrile Plan: Current tratment reviewed including Ventilator settings and continued
[2025-02-19] VITALS: BP 113/67; PULSE 98; RESP 21; TEMP 36.6
[2025-02-19 00:21] VITALS: PULSE 96; PULSE 99; RESP 16; RESP 22; O2SAT 100
[2025-02-19] MEDS: IPRATROPIUM/ALBUTEROL 3 ML AMPUL.NEB INH ×4 (00:21→18:35)
[2025-02-19] MEDS: MIDODRINE 10 MG TABLET GT ×3 (05:53→21:07)
[2025-02-19] MEDS: METOCLOPRAMIDE 5 MG TABLET GT ×3 (05:53→21:08)
[2025-02-19] MEDS: BACLOFEN 10 MG TABLET 5 MG GT ×3 (05:53→21:07)
[2025-02-19 06:00] VITALS: BP 116/85; PULSE 97; RESP 21; TEMP 36.7; O2SAT 100
[2025-02-19 06:10] VITALS: PULSE 94; PULSE 96; RESP 18; RESP 20; O2SAT 100; O2SAT 98
--- NOTE | 2025-02-19 06:28 | PC.NURSE ---
RESIDENT RECEIVING ZOSYN IV EVERY 6 HOURS FOR OSTEOMYLITIS, ESBL. NO ADVERSE REACTION NOTED. NO FEVER NOTED.
--- NOTE | 2025-02-19 06:39 | PC.NURSE ---
Resident continues with Zosyn IV for osteomylitis and doxycycline Gtube for ESBL in sputum, no adverse side effects noted, afebrile, water given via Gtube, resident in room resting, call light within reach, no s/s distress noted at this time.
[2025-02-19] MEDS: DEX/HYPRO/GLY ARTIFICAL TEARS 225 DROP/15 ML BTL BOTH EYES (09:10)
[2025-02-19] MEDS: NON-FORMULARY *SEE COMMENTS* 1 EA EA 100 EA GT ×2 (09:11→21:05)
[2025-02-19] MEDS: FLUDROCORTISONE 0.1 MG GT ×2 (09:11→21:02)
[2025-02-19] MEDS: NON-FORMULARY *SEE COMMENTS* 1 EA EA 600 EA GT ×2 (09:11→21:06)
[2025-02-19] MEDS: MULTIVITAMIN W MINERALS 1 EACH TABLET GT (09:11)
[2025-02-19] MEDS: PANTOPRAZOLE 40 MG GRANPKT.DR GT (09:11)
--- NOTE | 2025-02-19 12:08 | PC.SS ---
Room visit: Resident remains on vent with trach in place and GT for medication and nutrition, he is unable to make needs known. His decision maker is his aunt, is not conserved. Resident will remain in current care and will continue to have all subacute care needs met by staff. This SSD will make daily contact and will offer support as needed.
[2025-02-19 12:28] VITALS: PULSE 93; PULSE 96; RESP 20; RESP 22; O2SAT 100; O2SAT 98
[2025-02-19] MEDS: PIPERACILLIN SODIUM/TAZOBACTAM 3.375 GM VIAL IV ×3 (12:34→23:00)
[2025-02-19 18:36] VITALS: PULSE 92; PULSE 98; RESP 16; RESP 18; O2SAT 100; O2SAT 95
--- NOTE | 2025-02-19 18:56 | PC.NURSE ---
Continues on ATB for ESBL in sputum. No adverse reactions noted. No signs of respiratory distress noted. Continue to observe.
[2025-02-19] MEDS: NON-FORMULARY *SEE COMMENTS* 1 EA EA 250 EA GT (21:08)
[2025-02-20] VITALS (8 sets, daily range): BP systolic 105–123; BP diastolic 61–72; PULSE 80–110; RESP 18–26; TEMP 36.6–36.8; O2SAT 92–100
[2025-02-20] MEDS: IPRATROPIUM/ALBUTEROL 3 ML AMPUL.NEB INH ×4 (00:49→19:00)
[2025-02-20] MEDS: BACLOFEN 10 MG TABLET 5 MG GT ×3 (05:48→21:26)
[2025-02-20] MEDS: METOCLOPRAMIDE 5 MG TABLET GT ×3 (05:48→21:26)
[2025-02-20] MEDS: NON-FORMULARY *SEE COMMENTS* 1 EA EA 250 EA GT ×2 (05:49→21:26)
[2025-02-20] MEDS: MIDODRINE 10 MG TABLET GT ×3 (05:49→21:26)
[2025-02-20] MEDS: PIPERACILLIN SODIUM/TAZOBACTAM 3.375 GM VIAL IV ×3 (05:53→18:05)
[2025-02-20] MEDS: DEX/HYPRO/GLY ARTIFICAL TEARS 225 DROP/15 ML BTL BOTH EYES (08:33)
[2025-02-20] MEDS: FLUDROCORTISONE 0.1 MG GT ×2 (08:34→21:24)
[2025-02-20] MEDS: MULTIVITAMIN W MINERALS 1 EACH TABLET GT (08:35)
[2025-02-20] MEDS: NON-FORMULARY *SEE COMMENTS* 1 EA EA 100 EA GT ×2 (08:35→21:26)
[2025-02-20] MEDS: NON-FORMULARY *SEE COMMENTS* 1 EA EA 600 EA GT ×2 (08:37→21:26)
[2025-02-20] MEDS: PANTOPRAZOLE 40 MG GRANPKT.DR GT (08:40)
[2025-02-20] MEDS: ACETAMINOPHEN 325 MG TABLET GT (14:00)
[2025-02-21] VITALS (8 sets, daily range): BP systolic 92–104; BP diastolic 59–67; PULSE 67–98; RESP 16–33; TEMP 36.3–36.5; O2SAT 94–100
[2025-02-21] MEDS: PIPERACILLIN SODIUM/TAZOBACTAM 3.375 GM VIAL IV ×4 (00:04→18:16)
[2025-02-21] MEDS: IPRATROPIUM/ALBUTEROL 3 ML AMPUL.NEB INH ×4 (00:13→18:24)
[2025-02-21 05:23] LABS: Albumin, Serum 3.5 gm/dL (3.5-5.0); Anion Gap 9 (7-16); BUN/Creatinine Ratio 24 Ratio (12-20); Blood Urea Nitrogen 47 mg/dL (9-23); Calcium 8.9 mg/dL (8.3-10.6); Calcium (Corrected) 9.3 mg/dL (8.5-10.1); Carbon Dioxide 28.8 mMol/L (20.0-31.0); Chloride 107 mMol/L (98-107); Creatinine (Component) 2.0 mg/dL (0.6-1.3); Estimated Creatinine Clearance 43.1 mL/min (>60); Glucose 104 mg/dL (74-106); Osmolality,Calculated 300 (275-295); Phosphorous 4.1 mg/dL (2.4-5.1); Potassium 3.9 mMol/L (3.4-5.1); Sodium 145 mMol/L (136-145); eGFR 42 See Note
[2025-02-21] MEDS: BACLOFEN 10 MG TABLET 5 MG GT ×3 (05:51→21:22)
[2025-02-21] MEDS: NON-FORMULARY *SEE COMMENTS* 1 EA EA 250 EA GT ×3 (05:52→21:22)
[2025-02-21] MEDS: METOCLOPRAMIDE 5 MG TABLET GT ×3 (05:52→21:22)
[2025-02-21] MEDS: MIDODRINE 10 MG TABLET GT ×3 (05:52→21:22)
[2025-02-21] MEDS: DEX/HYPRO/GLY ARTIFICAL TEARS 225 DROP/15 ML BTL BOTH EYES (08:48)
[2025-02-21] MEDS: FLUDROCORTISONE 0.1 MG GT (08:48)
[2025-02-21] MEDS: MULTIVITAMIN W MINERALS 1 EACH TABLET GT (08:48)
[2025-02-21] MEDS: PANTOPRAZOLE 40 MG GRANPKT.DR GT (08:49)
[2025-02-21] MEDS: NON-FORMULARY *SEE COMMENTS* 1 EA EA 600 EA GT ×2 (08:49→21:21)
[2025-02-21] MEDS: NON-FORMULARY *SEE COMMENTS* 1 EA EA 100 EA GT ×2 (08:49→21:21)
--- NOTE | 2025-02-21 18:34 | PC.NURSE ---
Received renal panel result . made aware and order to decreased fludrocortisone to once a day, order noted and carried out.
[2025-02-22] VITALS (8 sets, daily range): BP systolic 91–120; BP diastolic 61–77; PULSE 55–94; RESP 17–24; TEMP 36.3–36.4; O2SAT 95–100
[2025-02-22] MEDS: IPRATROPIUM/ALBUTEROL 3 ML AMPUL.NEB INH ×4 (00:03→18:21)
[2025-02-22] MEDS: PIPERACILLIN SODIUM/TAZOBACTAM 3.375 GM VIAL IV ×5 (00:10→23:21)
[2025-02-22] MEDS: BACLOFEN 10 MG TABLET 5 MG GT ×3 (05:24→21:04)
[2025-02-22] MEDS: METOCLOPRAMIDE 5 MG TABLET GT ×3 (05:25→21:04)
[2025-02-22] MEDS: MIDODRINE 10 MG TABLET GT ×3 (05:25→21:04)
[2025-02-22] MEDS: NON-FORMULARY *SEE COMMENTS* 1 EA EA 250 EA GT ×3 (05:25→21:05)
--- NOTE | 2025-02-22 06:22 | PC.NURSE ---
Resient remains on IV antibiotics Zosyn for Osteomyelitis to wound to sacrum, no side effects noted, central line remains patent, no s/s of infection noted
[2025-02-22] MEDS: DEX/HYPRO/GLY ARTIFICAL TEARS 225 DROP/15 ML BTL BOTH EYES (08:56)
[2025-02-22] MEDS: FLUDROCORTISONE 0.1 MG GT (08:56)
[2025-02-22] MEDS: MULTIVITAMIN W MINERALS 1 EACH TABLET GT (08:57)
[2025-02-22] MEDS: NON-FORMULARY *SEE COMMENTS* 1 EA EA 100 EA GT ×2 (08:57→20:44)
[2025-02-22] MEDS: NON-FORMULARY *SEE COMMENTS* 1 EA EA 600 EA GT ×2 (09:00→20:44)
[2025-02-22] MEDS: PANTOPRAZOLE 40 MG GRANPKT.DR GT (09:01)
--- NOTE | 2025-02-22 20:47 | ESPR_ITS ---
Progress Note - SubAcute DIAGNOSIS (1) Osteomyelitis: Status: Chronic (2) DVT (deep venous thrombosis): Status: Chronic (3) Chronic respiratory failure: Status: Chronic (4) Ventilator dependent: Status: Chronic (5) G tube feedings: Status: Chronic (6) Tracheostomy in place: Status: Chronic (7) Seizures: Status: Chronic (8) Adrenal insufficiency: Status: Chronic (9) Ureteric obstruction: Status: Chronic OBJECTIVE Most recent vital signs: Last Vital Signs Temp 97.4 F 02/22/25 18:00 Pulse 94 02/22/25 18:21 Resp 19 02/22/25 18:21 BP 120/77 02/22/25 18:00 Pulse Ox 95 02/22/25 18:21 O2 Del Method Mechanical Ventilation 02/22/25 18:00 FiO2 40 02/22/25 18:21 Neurological:: awake (no cognizant response) Respiratory:: lungs clear (ventilator dependent) Cardiovascular: RRR Abdomen: soft Extremities:: deformities (spastic contractures) Decubitus:: unchanged (osteomyelitis) Tracheostomy:: to ventilator Feeding per:: G tube Complaints:: none ASSESSMENT & PLAN Assessment: 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 Recently treated in Acute care for septic shock from chronic osteomyelitis and pneumonia and now with a central line for continued antibiotics is admitted to [facility] for senior living treatment. Tolerating antibiotics. afebrile Plan: Current tratment reviewed including Ventilator settings and continued
[2025-02-23] VITALS (8 sets, daily range): BP systolic 94–113; BP diastolic 60–77; PULSE 88–102; RESP 17–24; TEMP 36.7–36.8; O2SAT 94–100
[2025-02-23] MEDS: IPRATROPIUM/ALBUTEROL 3 ML AMPUL.NEB INH ×3 (00:22→18:48)
[2025-02-23] MEDS: METOCLOPRAMIDE 5 MG TABLET GT ×3 (05:14→21:11)
[2025-02-23] MEDS: NON-FORMULARY *SEE COMMENTS* 1 EA EA 250 EA GT ×3 (05:14→21:11)
[2025-02-23] MEDS: BACLOFEN 10 MG TABLET 5 MG GT ×3 (05:14→21:13)
[2025-02-23] MEDS: MIDODRINE 10 MG TABLET GT ×3 (05:14→21:11)
[2025-02-23] MEDS: PIPERACILLIN SODIUM/TAZOBACTAM 3.375 GM VIAL IV ×2 (05:18→13:12)
[2025-02-23] MEDS: DEX/HYPRO/GLY ARTIFICAL TEARS 225 DROP/15 ML BTL BOTH EYES (09:08)
[2025-02-23] MEDS: FLUDROCORTISONE 0.1 MG GT (09:08)
[2025-02-23] MEDS: NON-FORMULARY *SEE COMMENTS* 1 EA EA 100 EA GT ×2 (09:09→21:10)
[2025-02-23] MEDS: NON-FORMULARY *SEE COMMENTS* 1 EA EA 600 EA GT ×2 (09:09→21:11)
[2025-02-23] MEDS: MULTIVITAMIN W MINERALS 1 EACH TABLET GT (09:09)
[2025-02-23] MEDS: PANTOPRAZOLE 40 MG GRANPKT.DR GT (09:10)
[2025-02-23 15:39] LABS: Basophils # (Auto) 0.1 Thou/mm3 (0.0-0.2); Basophils % (Auto) 1 % (0-2.5); Eosinophils # (Auto) 2.8 Thou/mm3 (0.0-0.5); Eosinophils % (Auto) 21 % (0-10); Hematocrit 30.0 % (41.0-53.0); Hemoglobin 9.4 g/dL (13.5-16.0); Immature Granulocytes Auto 0.06 Thou/mm3 (0.00-0.00); Lymphocytes # (Auto) 1.4 Thou/mm3 (1.0-4.8); Lymphocytes % (Auto) 11 % (10-50); Mean Corpuscular HGB Conc 31.3 g/dl (31.0-37.0); Mean Corpuscular Hemoglobin 29.2 pg (25.0-35.0); Mean Corpuscular Volume 93 fL (80-100); Monocytes # (Auto) 0.8 Thou/mm3 (0.0-0.8); Monocytes % (Auto) 6 % (0-12); Neutrophils # (Auto) 8.0 Thou/mm3 (1.8-7.7); Neutrophils % (Auto) 61 % (37-80); Nucleated Red Blood Cell # 0.00 Thou/mm3 (0.00-0.00); Nucleated Red Blood Cell % 0 /100 WBC (0); Platelet Count 460 Thou/mm3 (140-440); RDW Standard Deviation 54.9 fL (35.1-43.9); Red Blood Count 3.22 Miln/mm3 (4.50-5.90); White Blood Count 13.1 Thou/mm3 (3.8-10.6)
--- NOTE | 2025-02-23 17:56 | PC.NURSE ---
Last dose of Zosyn was given today at noon. No adverse reaction noted. No s/s of pain or discomfort noted.
[2025-02-24] VITALS (8 sets, daily range): BP systolic 95–128; BP diastolic 60–70; PULSE 77–95; RESP 16–23; TEMP 36.2–36.5; O2SAT 98–100
[2025-02-24] MEDS: IPRATROPIUM/ALBUTEROL 3 ML AMPUL.NEB INH ×4 (00:46→19:24)
[2025-02-24] MEDS: MIDODRINE 10 MG TABLET GT ×3 (05:46→21:00)
[2025-02-24] MEDS: BACLOFEN 10 MG TABLET 5 MG GT ×3 (05:46→21:00)
[2025-02-24] MEDS: METOCLOPRAMIDE 5 MG TABLET GT ×3 (05:46→21:00)
[2025-02-24] MEDS: NON-FORMULARY *SEE COMMENTS* 1 EA EA 250 EA GT ×3 (05:46→21:00)
[2025-02-24] MEDS: FLUDROCORTISONE 0.1 MG GT (09:57)
[2025-02-24] MEDS: DEX/HYPRO/GLY ARTIFICAL TEARS 225 DROP/15 ML BTL BOTH EYES (09:57)
[2025-02-24] MEDS: MULTIVITAMIN W MINERALS 1 EACH TABLET GT (09:57)
[2025-02-24] MEDS: NON-FORMULARY *SEE COMMENTS* 1 EA EA 600 EA GT ×2 (09:57→20:56)
[2025-02-24] MEDS: PANTOPRAZOLE 40 MG GRANPKT.DR GT (09:58)
[2025-02-24] MEDS: NON-FORMULARY *SEE COMMENTS* 1 EA EA 100 EA GT (09:58)
--- NOTE | 2025-02-24 14:45 | PC.SS ---
Room Visit: Resident is laying in bed with head of the bed elevated with call light properly placed with no signs of distress. Resident is unable to make needs known, he is represented by his aunt. Resident will remain in current care as he remains on vent with trach in place and GT for medication and nutrition. Resident is a [facility] client. This SSD will make daily contact with resident and will monitor for changes in mood and behavior.
--- NOTE | 2025-02-24 19:08 | PC.NURSE ---
Last dose of antibiotics given via gt for ESBL in sputum. No adverse reactions noted. No s/s respiratory distress. Continue to observe.
[2025-02-25] VITALS (8 sets, daily range): BP systolic 95–107; BP diastolic 60–70; PULSE 80–93; RESP 17–22; TEMP 36.3–36.8; O2SAT 98–100
[2025-02-25] MEDS: IPRATROPIUM/ALBUTEROL 3 ML AMPUL.NEB INH ×4 (00:59→18:43)
[2025-02-25] MEDS: NON-FORMULARY *SEE COMMENTS* 1 EA EA 250 EA GT ×3 (05:46→22:11)
[2025-02-25] MEDS: METOCLOPRAMIDE 5 MG TABLET GT ×3 (05:46→22:11)
[2025-02-25] MEDS: MIDODRINE 10 MG TABLET GT ×3 (05:46→22:11)
[2025-02-25] MEDS: BACLOFEN 10 MG TABLET 5 MG GT ×3 (05:46→22:11)
--- NOTE | 2025-02-25 06:55 | PC.NURSE ---
nephrstyomy output 450ml
[2025-02-25] MEDS: FLUDROCORTISONE 0.1 MG GT (09:11)
[2025-02-25] MEDS: NON-FORMULARY *SEE COMMENTS* 1 EA EA 600 EA GT ×2 (09:11→20:51)
[2025-02-25] MEDS: DEX/HYPRO/GLY ARTIFICAL TEARS 225 DROP/15 ML BTL BOTH EYES (09:11)
[2025-02-25] MEDS: MULTIVITAMIN W MINERALS 1 EACH TABLET GT (09:11)
[2025-02-25] MEDS: PANTOPRAZOLE 40 MG GRANPKT.DR GT (09:11)
--- NOTE | 2025-02-25 11:47 | PC.IP ---
On 02/23/25 during IDT meeting with RP, decided resident will remain at [facility] and not return to previous facility. Will pursue consent during IDT on 03/02 for pneumococcal vaccine. Resident will be passing 7 days post-antibiotic therapy as Dr. Silverio prefers.
[2025-02-26] VITALS: BP 119/75; PULSE 101; RESP 19; TEMP 36.7
[2025-02-26 01:17] VITALS: PULSE 84; PULSE 96; RESP 19; RESP 21; O2SAT 95; O2SAT 99
[2025-02-26] MEDS: IPRATROPIUM/ALBUTEROL 3 ML AMPUL.NEB INH ×4 (01:17→18:32)
[2025-02-26] MEDS: NON-FORMULARY *SEE COMMENTS* 1 EA EA 250 EA GT ×3 (05:12→21:36)
[2025-02-26] MEDS: MIDODRINE 10 MG TABLET GT ×3 (05:12→21:33)
[2025-02-26] MEDS: BACLOFEN 10 MG TABLET 5 MG GT ×3 (05:12→21:32)
[2025-02-26] MEDS: METOCLOPRAMIDE 5 MG TABLET GT ×3 (05:12→21:32)
[2025-02-26 05:36] VITALS: BP 96/64; PULSE 82; RESP 18; TEMP 36.4; O2SAT 99
[2025-02-26 06:10] VITALS: PULSE 89; PULSE 92; RESP 16; RESP 18; O2SAT 96; O2SAT 99
[2025-02-26 06:29] LABS: Basophils # (Auto) 0.1 Thou/mm3 (0.0-0.2); Basophils % (Auto) 1 % (0-2.5); Eosinophils # (Auto) 3.7 Thou/mm3 (0.0-0.5); Eosinophils % (Auto) 27 % (0-10); Hematocrit 29.9 % (41.0-53.0); Hemoglobin 9.6 g/dL (13.5-16.0); Immature Granulocytes Auto 0.07 Thou/mm3 (0.00-0.00); Lymphocytes # (Auto) 2.1 Thou/mm3 (1.0-4.8); Lymphocytes % (Auto) 16 % (10-50); Mean Corpuscular HGB Conc 32.1 g/dl (31.0-37.0); Mean Corpuscular Hemoglobin 29.1 pg (25.0-35.0); Mean Corpuscular Volume 91 fL (80-100); Monocytes # (Auto) 0.7 Thou/mm3 (0.0-0.8); Monocytes % (Auto) 5 % (0-12); Neutrophils # (Auto) 7.0 Thou/mm3 (1.8-7.7); Neutrophils % (Auto) 51 % (37-80); Nucleated Red Blood Cell # 0.00 Thou/mm3 (0.00-0.00); Nucleated Red Blood Cell % 0 /100 WBC (0); Platelet Count 407 Thou/mm3 (140-440); RDW Standard Deviation 54.4 fL (35.1-43.9); Red Blood Count 3.30 Miln/mm3 (4.50-5.90); White Blood Count 13.6 Thou/mm3 (3.8-10.6)
[2025-02-26] MEDS: NON-FORMULARY *SEE COMMENTS* 1 EA EA 600 EA GT ×2 (09:05→21:31)
[2025-02-26] MEDS: MULTIVITAMIN W MINERALS 1 EACH TABLET GT (09:05)
[2025-02-26] MEDS: DEX/HYPRO/GLY ARTIFICAL TEARS 225 DROP/15 ML BTL BOTH EYES (09:05)
[2025-02-26] MEDS: PANTOPRAZOLE 40 MG GRANPKT.DR GT (09:05)
[2025-02-26] MEDS: FLUDROCORTISONE 0.1 MG GT (09:05)
[2025-02-26 12:15] VITALS: PULSE 95; RESP 20; O2SAT 97
--- NOTE | 2025-02-26 13:15 | PD.SAPROG ---
Progress Note - SubAcute DIAGNOSIS (1) Osteomyelitis: Status: Chronic (2) DVT (deep venous thrombosis): Status: Chronic (3) Chronic respiratory failure: Status: Chronic (4) Ventilator dependent: Status: Chronic (5) G tube feedings: Status: Chronic (6) Tracheostomy in place: Status: Chronic (7) Seizures: Status: Chronic (8) Adrenal insufficiency: Status: Chronic (9) Ureteric obstruction: Status: Chronic OBJECTIVE Most recent vital signs: Last Vital Signs Temp 98.0 F 02/28/25 05:31 Pulse 99 02/28/25 14:06 Resp 22 H 02/28/25 14:06 BP 110/73 02/28/25 05:31 Pulse Ox 99 02/28/25 14:06 O2 Del Method Mechanical Ventilation 02/23/25 17:01 FiO2 40 02/28/25 14:06 Neurological:: awake (no cognizant response) Respiratory:: lungs clear (ventilator dependent) Cardiovascular: RRR Abdomen: soft Extremities:: deformities (spastic contractures) Decubitus:: unchanged (osteomyelitis) Tracheostomy:: to ventilator Feeding per:: G tube Complaints:: none ASSESSMENT & PLAN Assessment: 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 Recently treated in Acute care for septic shock from chronic osteomyelitis and pneumonia and now with a central line for continued antibiotics is admitted to [facility] for group home treatment. Tolerating antibiotics. afebrile. VSS Plan: Current tratment reviewed including Ventilator settings and continued
[2025-02-26 18:33] VITALS: PULSE 110; PULSE 98; RESP 16; RESP 17; O2SAT 95; O2SAT 99
[2025-02-27] VITALS (8 sets, daily range): BP systolic 104–109; BP diastolic 70–85; PULSE 85–111; RESP 17–22; TEMP 36.2–36.8; O2SAT 98–100
[2025-02-27] MEDS: IPRATROPIUM/ALBUTEROL 3 ML AMPUL.NEB INH ×4 (00:17→19:04)
[2025-02-27] MEDS: METOCLOPRAMIDE 5 MG TABLET GT ×3 (05:12→21:38)
[2025-02-27] MEDS: BACLOFEN 10 MG TABLET 5 MG GT ×3 (05:12→21:37)
[2025-02-27] MEDS: MIDODRINE 10 MG TABLET GT ×3 (05:16→21:38)
[2025-02-27] MEDS: NON-FORMULARY *SEE COMMENTS* 1 EA EA 250 EA GT ×3 (05:16→21:38)
[2025-02-27] MEDS: MULTIVITAMIN W MINERALS 1 EACH TABLET GT (09:50)
[2025-02-27] MEDS: DEX/HYPRO/GLY ARTIFICAL TEARS 225 DROP/15 ML BTL BOTH EYES (09:50)
[2025-02-27] MEDS: FLUDROCORTISONE 0.1 MG GT (09:50)
[2025-02-27] MEDS: PANTOPRAZOLE 40 MG GRANPKT.DR GT (09:50)
[2025-02-27] MEDS: NON-FORMULARY *SEE COMMENTS* 1 EA EA 600 EA GT ×2 (09:50→21:37)
[2025-02-27] MEDS: ACETAMINOPHEN 325 MG TABLET GT (21:39)
[2025-02-28] VITALS: BP 90/60; PULSE 102; RESP 25; TEMP 36.9
[2025-02-28 01:53] VITALS: PULSE 84; PULSE 90; RESP 25; O2SAT 97
[2025-02-28] MEDS: IPRATROPIUM/ALBUTEROL 3 ML AMPUL.NEB INH ×4 (01:53→18:25)
[2025-02-28] MEDS: BACLOFEN 10 MG TABLET 5 MG GT ×3 (05:11→21:26)
[2025-02-28] MEDS: MIDODRINE 10 MG TABLET GT ×3 (05:12→21:28)
[2025-02-28] MEDS: NON-FORMULARY *SEE COMMENTS* 1 EA EA 250 EA GT ×3 (05:12→21:29)
[2025-02-28] MEDS: METOCLOPRAMIDE 5 MG TABLET GT ×3 (05:12→21:28)
[2025-02-28 05:31] VITALS: BP 110/73; PULSE 102; RESP 26; TEMP 36.7; O2SAT 98
[2025-02-28 06:15] VITALS: PULSE 113; PULSE 116; RESP 28; RESP 29; O2SAT 92; O2SAT 98
[2025-02-28] MEDS: DEX/HYPRO/GLY ARTIFICAL TEARS 225 DROP/15 ML BTL BOTH EYES (08:48)
[2025-02-28] MEDS: FLUDROCORTISONE 0.1 MG GT (08:48)
[2025-02-28] MEDS: MULTIVITAMIN W MINERALS 1 EACH TABLET GT (08:49)
[2025-02-28] MEDS: NON-FORMULARY *SEE COMMENTS* 1 EA EA 600 EA GT ×2 (08:51→21:26)
[2025-02-28] MEDS: PANTOPRAZOLE 40 MG GRANPKT.DR GT (09:00)
[2025-02-28 14:06] VITALS: PULSE 113; PULSE 99; RESP 22; RESP 33; O2SAT 97; O2SAT 99
[2025-02-28] MEDS: ACETAMINOPHEN 325 MG TABLET GT (15:07)
[2025-02-28 18:25] VITALS: PULSE 100; RESP 23; O2SAT 99
[2025-03-01] VITALS (8 sets, daily range): BP systolic 91–122; BP diastolic 60–76; PULSE 77–106; RESP 18–24; TEMP 36.4–36.7; O2SAT 98–99; BMI 21.7
[2025-03-01] MEDS: IPRATROPIUM/ALBUTEROL 3 ML AMPUL.NEB INH ×4 (00:15→18:10)
[2025-03-01] MEDS: BACLOFEN 10 MG TABLET 5 MG GT ×3 (05:00→21:15)
[2025-03-01] MEDS: NON-FORMULARY *SEE COMMENTS* 1 EA EA 250 EA GT (05:00)
[2025-03-01] MEDS: METOCLOPRAMIDE 5 MG TABLET GT ×3 (05:00→21:15)
[2025-03-01] MEDS: MIDODRINE 10 MG TABLET GT ×3 (05:00→21:15)
--- NOTE | 2025-03-01 06:52 | PC.NURSE ---
Nephrostomy output 250ml
[2025-03-01] MEDS: DEX/HYPRO/GLY ARTIFICAL TEARS 225 DROP/15 ML BTL BOTH EYES (08:48)
[2025-03-01] MEDS: FLUDROCORTISONE 0.1 MG GT (08:49)
[2025-03-01] MEDS: MULTIVITAMIN W MINERALS 1 EACH TABLET GT (08:50)
[2025-03-01] MEDS: NON-FORMULARY *SEE COMMENTS* 1 EA EA 600 EA GT ×2 (08:52→20:45)
[2025-03-01] MEDS: PANTOPRAZOLE 40 MG GRANPKT.DR GT (08:52)
[2025-03-01] MEDS: ACETAMINOPHEN 325 MG TABLET GT ×2 (11:15→20:46)
--- NOTE | 2025-03-01 15:06 | PC.SS ---
Resident seen by tubular riveter/ Dr. Kimble had routine toe nail trim with no new orders or recommendations. Resident will continue current care.
[2025-03-02] VITALS (8 sets, daily range): BP systolic 100–106; BP diastolic 63–69; PULSE 77–120; RESP 19–25; TEMP 36.5–37; O2SAT 97–99
[2025-03-02] MEDS: IPRATROPIUM/ALBUTEROL 3 ML AMPUL.NEB INH ×4 (00:15→18:44)
[2025-03-02] MEDS: METOCLOPRAMIDE 5 MG TABLET GT ×3 (05:04→21:21)
[2025-03-02] MEDS: BACLOFEN 10 MG TABLET 5 MG GT ×3 (05:04→21:21)
[2025-03-02] MEDS: MIDODRINE 10 MG TABLET GT ×3 (05:04→21:21)
[2025-03-02] MEDS: DEX/HYPRO/GLY ARTIFICAL TEARS 225 DROP/15 ML BTL BOTH EYES (09:00)
[2025-03-02] MEDS: MULTIVITAMIN W MINERALS 1 EACH TABLET GT (09:01)
[2025-03-02] MEDS: FLUDROCORTISONE 0.1 MG GT (09:01)
[2025-03-02] MEDS: PANTOPRAZOLE 40 MG GRANPKT.DR GT (09:01)
[2025-03-02] MEDS: NON-FORMULARY *SEE COMMENTS* 1 EA EA 600 EA GT ×2 (09:01→21:21)
--- NOTE | 2025-03-02 13:05 | PD.SAPROG ---
Progress Note - SubAcute DIAGNOSIS (1) Osteomyelitis: Status: Chronic (2) DVT (deep venous thrombosis): Status: Chronic (3) Chronic respiratory failure: Status: Chronic (4) Ventilator dependent: Status: Chronic (5) G tube feedings: Status: Chronic (6) Tracheostomy in place: Status: Chronic (7) Seizures: Status: Chronic (8) Adrenal insufficiency: Status: Chronic (9) Ureteric obstruction: Status: Chronic OBJECTIVE Most recent vital signs: Last Vital Signs Temp 97.7 F 03/07/25 17:58 Pulse 102 H 03/07/25 19:03 Resp 20 03/07/25 19:03 BP 106/68 03/07/25 17:58 Pulse Ox 100 03/07/25 19:03 O2 Del Method Mechanical Ventilation 03/07/25 06:00 FiO2 40 03/07/25 22:00 Neurological:: awake (no cognizant response) Respiratory:: lungs clear (ventilator dependent) Cardiovascular: RRR Abdomen: soft Extremities:: deformities (spastic contractures) Decubitus:: unchanged (osteomyelitis) Tracheostomy:: to ventilator Feeding per:: G tube Complaints:: none ASSESSMENT & PLAN Assessment: 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 Tolerating antibiotics. afebrile. VSS. No new issues. Plan: Current tratment reviewed including Ventilator settings and continued
--- NOTE | 2025-03-02 16:27 | XR_ITS ---
Examination: AP chest single view TECHNIQUE: Portable sitting AP chest single view Date and time: March 02, 2025 1649 hours Comparison February 13, 2025 INDICATIONS: History chest pain, history nephrostomy tube placement FINDINGS: Atelectasis and/or pneumonia both lung bases Normal heart size Right internal jugular central line SVC Old left-sided rib fractures No pulmonary edema Tracheostomy tube tip 5.6 cm above duldey IMPRESSION: Atelectasis and/or pneumonia at the lung bases, clinical correlation advised
[2025-03-03] VITALS: BP 112/77; PULSE 102; RESP 24; TEMP 36.3
[2025-03-03 01:56] VITALS: PULSE 79; PULSE 88; RESP 23; RESP 26; O2SAT 97; O2SAT 98
[2025-03-03] MEDS: IPRATROPIUM/ALBUTEROL 3 ML AMPUL.NEB INH ×4 (01:56→19:00)
[2025-03-03] MEDS: BACLOFEN 10 MG TABLET 5 MG GT ×3 (05:30→21:21)
[2025-03-03] MEDS: METOCLOPRAMIDE 5 MG TABLET GT ×3 (05:30→21:21)
[2025-03-03] MEDS: MIDODRINE 10 MG TABLET GT ×3 (05:31→21:21)
[2025-03-03 06:52] VITALS: PULSE 101; PULSE 105; RESP 22; RESP 23; O2SAT 100; O2SAT 99
[2025-03-03] MEDS: DEX/HYPRO/GLY ARTIFICAL TEARS 225 DROP/15 ML BTL BOTH EYES (09:47)
[2025-03-03] MEDS: NON-FORMULARY *SEE COMMENTS* 1 EA EA 600 EA GT ×2 (09:48→21:20)
[2025-03-03] MEDS: MULTIVITAMIN W MINERALS 1 EACH TABLET GT (09:48)
[2025-03-03] MEDS: FLUDROCORTISONE 0.1 MG GT (09:48)
[2025-03-03] MEDS: PANTOPRAZOLE 40 MG GRANPKT.DR GT (09:48)
[2025-03-03 12:59] VITALS: PULSE 112; PULSE 115; RESP 24; RESP 25; O2SAT 100; O2SAT 99
--- NOTE | 2025-03-03 13:04 | XR_ITS ---
Examination: Abdomen AP single view Technique: AP portable supine abdomen, single view Exam date and time: March 03, 2025 1318 hours INDICATIONS: Post right nephrostomy tube placement FINDINGS: Right nephrostomy tube projects in satisfactory position Gastrostomy tube overlies the stomach No free air IMPRESSION: Right nephrostomy tube satisfactory position
--- NOTE | 2025-03-03 17:10 | PC.NURSE ---
Reviewed abdominal XR done this afternoon with MD Silverio. According to results regarding nephrostomy tube placement. RT nephrostomy tube is satisfactory position. ordered to cancel consult with urologist Dr. Sanon. Dr. Silverio will come tomorrow to secure nephrostomy tube. Tube draining to gravity yellow clear urine.
[2025-03-03 19:00] VITALS: PULSE 86; PULSE 91; RESP 21; O2SAT 100
[2025-03-04] VITALS: BP 103/69; PULSE 109; RESP 23; TEMP 36.7
[2025-03-04] MEDS: IPRATROPIUM/ALBUTEROL 3 ML AMPUL.NEB INH ×4 (02:11→18:10)
[2025-03-04 02:12] VITALS: PULSE 87; PULSE 91; RESP 20; O2SAT 100
[2025-03-04] MEDS: BACLOFEN 10 MG TABLET 5 MG GT ×3 (05:15→21:10)
[2025-03-04] MEDS: METOCLOPRAMIDE 5 MG TABLET GT ×3 (05:16→21:11)
[2025-03-04 06:00] VITALS: BP 119/78; PULSE 114; RESP 24; TEMP 36.9; O2SAT 96
[2025-03-04 06:23] VITALS: PULSE 102; PULSE 107; RESP 20; RESP 21; O2SAT 99
[2025-03-04] MEDS: DEX/HYPRO/GLY ARTIFICAL TEARS 225 DROP/15 ML BTL BOTH EYES (09:16)
[2025-03-04] MEDS: FLUDROCORTISONE 0.1 MG GT (09:17)
[2025-03-04] MEDS: NON-FORMULARY *SEE COMMENTS* 1 EA EA 600 EA GT ×2 (09:19→20:50)
[2025-03-04] MEDS: MULTIVITAMIN W MINERALS 1 EACH TABLET GT (09:19)
[2025-03-04] MEDS: PANTOPRAZOLE 40 MG GRANPKT.DR GT (09:20)
[2025-03-04 12:45] VITALS: PULSE 92; PULSE 97; RESP 16; RESP 18; O2SAT 98; O2SAT 99
[2025-03-04 18:10] VITALS: PULSE 98; RESP 25; O2SAT 98
[2025-03-04] MEDS: MIDODRINE 10 MG TABLET GT (21:12)
[2025-03-05] VITALS: BP 120/81; PULSE 90; RESP 30; TEMP 36.4
[2025-03-05] MEDS: IPRATROPIUM/ALBUTEROL 3 ML AMPUL.NEB INH ×4 (00:10→16:30)
[2025-03-05 00:15] VITALS: PULSE 95; PULSE 99; RESP 21; RESP 22; O2SAT 98
[2025-03-05] MEDS: MIDODRINE 10 MG TABLET GT ×2 (05:57→21:18)
[2025-03-05] MEDS: BACLOFEN 10 MG TABLET 5 MG GT ×3 (05:57→21:17)
[2025-03-05] MEDS: METOCLOPRAMIDE 5 MG TABLET GT ×3 (05:57→21:18)
[2025-03-05] MEDS: NON-FORMULARY *SEE COMMENTS* 1 EA EA 250 EA GT ×3 (05:58→22:30)
[2025-03-05 06:00] VITALS: BP 97/67; PULSE 119; RESP 23; TEMP 37.6; O2SAT 99
[2025-03-05 06:10] VITALS: PULSE 101; PULSE 110; RESP 20; O2SAT 98; O2SAT 99
[2025-03-05] MEDS: DEX/HYPRO/GLY ARTIFICAL TEARS 225 DROP/15 ML BTL BOTH EYES (09:34)
[2025-03-05] MEDS: FLUDROCORTISONE 0.1 MG GT (09:35)
[2025-03-05] MEDS: MULTIVITAMIN W MINERALS 1 EACH TABLET GT (09:36)
[2025-03-05] MEDS: NON-FORMULARY *SEE COMMENTS* 1 EA EA 600 EA GT ×2 (09:39→21:17)
[2025-03-05] MEDS: PANTOPRAZOLE 40 MG GRANPKT.DR GT (09:43)
[2025-03-05 12:10] VITALS: PULSE 97; PULSE 99; RESP 20; RESP 22; O2SAT 98; O2SAT 99
[2025-03-05 16:30] VITALS: PULSE 94; PULSE 95; RESP 18; RESP 20; O2SAT 98; O2SAT 99
[2025-03-06] VITALS (8 sets, daily range): BP systolic 97–106; BP diastolic 61–77; PULSE 88–112; RESP 16–26; TEMP 36.4–36.5; O2SAT 95–100
[2025-03-06] MEDS: IPRATROPIUM/ALBUTEROL 3 ML AMPUL.NEB INH ×4 (00:08→18:49)
[2025-03-06] MEDS: METOCLOPRAMIDE 5 MG TABLET GT ×3 (05:48→21:25)
[2025-03-06] MEDS: BACLOFEN 10 MG TABLET 5 MG GT ×3 (05:48→21:25)
[2025-03-06] MEDS: MIDODRINE 10 MG TABLET GT ×3 (05:48→21:27)
[2025-03-06] MEDS: NON-FORMULARY *SEE COMMENTS* 1 EA EA 250 EA GT ×3 (05:49→21:26)
[2025-03-06] MEDS: DEX/HYPRO/GLY ARTIFICAL TEARS 225 DROP/15 ML BTL BOTH EYES (09:36)
[2025-03-06] MEDS: FLUDROCORTISONE 0.1 MG GT (09:37)
[2025-03-06] MEDS: PANTOPRAZOLE 40 MG GRANPKT.DR GT (09:38)
[2025-03-06] MEDS: MULTIVITAMIN W MINERALS 1 EACH TABLET GT (09:38)
[2025-03-06] MEDS: NON-FORMULARY *SEE COMMENTS* 1 EA EA 600 EA GT ×2 (09:38→21:25)
[2025-03-06] MEDS: ACETAMINOPHEN 325 MG TABLET GT (21:27)
--- NOTE | 2025-03-06 23:18 | PD.SAPROG ---
Progress Note - SubAcute DIAGNOSIS (1) Osteomyelitis: Status: Chronic (2) DVT (deep venous thrombosis): Status: Chronic (3) Chronic respiratory failure: Status: Chronic (4) Ventilator dependent: Status: Chronic (5) G tube feedings: Status: Chronic (6) Tracheostomy in place: Status: Chronic (7) Seizures: Status: Chronic (8) Adrenal insufficiency: Status: Chronic (9) Ureteric obstruction: Status: Chronic OBJECTIVE Most recent vital signs: Last Vital Signs Temp 97.7 F 03/06/25 17:50 Pulse 109 H 03/06/25 18:49 Resp 16 03/06/25 18:49 BP 98/70 03/06/25 17:50 Pulse Ox 100 03/06/25 18:49 O2 Del Method Mechanical Ventilation 03/04/25 06:00 FiO2 40 03/06/25 18:49 Neurological:: awake (no cognizant response) Respiratory:: lungs clear (ventilator dependent) Cardiovascular: RRR Abdomen: soft Extremities:: deformities (spastic contractures) Decubitus:: unchanged (osteomyelitis) Tracheostomy:: to ventilator Feeding per:: G tube Complaints:: none ASSESSMENT & PLAN Assessment: 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 Tolerating antibiotics. afebrile. VSS. No new issues. Plan: Current tratment reviewed including Ventilator settings and continued
[2025-03-07] VITALS (8 sets, daily range): BP systolic 93–106; BP diastolic 59–69; PULSE 77–110; RESP 17–28; TEMP 36.3–36.5; O2SAT 97–100
[2025-03-07] MEDS: IPRATROPIUM/ALBUTEROL 3 ML AMPUL.NEB INH ×4 (00:28→19:03)
[2025-03-07] MEDS: BACLOFEN 10 MG TABLET 5 MG GT ×3 (05:26→21:01)
[2025-03-07] MEDS: METOCLOPRAMIDE 5 MG TABLET GT ×3 (05:26→21:01)
[2025-03-07] MEDS: NON-FORMULARY *SEE COMMENTS* 1 EA EA 250 EA GT ×2 (05:29→13:40)
[2025-03-07] MEDS: MIDODRINE 10 MG TABLET GT ×3 (05:29→21:01)
--- NOTE | 2025-03-07 06:39 | PC.NURSE ---
Nephrostomy output 400mL
[2025-03-07] MEDS: DEX/HYPRO/GLY ARTIFICAL TEARS 225 DROP/15 ML BTL BOTH EYES (09:10)
[2025-03-07] MEDS: FLUDROCORTISONE 0.1 MG GT (09:10)
[2025-03-07] MEDS: MULTIVITAMIN W MINERALS 1 EACH TABLET GT (09:11)
[2025-03-07] MEDS: NON-FORMULARY *SEE COMMENTS* 1 EA EA 600 EA GT ×2 (09:12→20:48)
[2025-03-07] MEDS: PANTOPRAZOLE 40 MG GRANPKT.DR GT (09:13)
[2025-03-07] MEDS: ACETAMINOPHEN 325 MG TABLET GT (20:49)
[2025-03-08] VITALS: BP 107/78; PULSE 98; RESP 29; TEMP 36.3
[2025-03-08 00:17] VITALS: PULSE 106; PULSE 98; RESP 20; O2SAT 100; O2SAT 99
[2025-03-08] MEDS: IPRATROPIUM/ALBUTEROL 3 ML AMPUL.NEB INH ×4 (00:17→19:05)
[2025-03-08] MEDS: BACLOFEN 10 MG TABLET 5 MG GT ×3 (05:03→21:16)
[2025-03-08] MEDS: MIDODRINE 10 MG TABLET GT ×2 (05:04→14:23)
[2025-03-08] MEDS: METOCLOPRAMIDE 5 MG TABLET GT ×3 (05:04→21:16)
--- NOTE | 2025-03-08 05:56 | PC.NURSE ---
nephrostomy output 450 ml
[2025-03-08 06:00] VITALS: BP 115/78; PULSE 91; RESP 22; TEMP 36.3; O2SAT 98
[2025-03-08 06:05] VITALS: PULSE 93; PULSE 94; RESP 20; RESP 22; O2SAT 100; O2SAT 98
[2025-03-08] MEDS: FLUDROCORTISONE 0.1 MG GT (08:50)
[2025-03-08] MEDS: DEX/HYPRO/GLY ARTIFICAL TEARS 225 DROP/15 ML BTL BOTH EYES (08:50)
[2025-03-08] MEDS: MULTIVITAMIN W MINERALS 1 EACH TABLET GT (08:50)
[2025-03-08] MEDS: NON-FORMULARY *SEE COMMENTS* 1 EA EA 600 EA GT ×2 (08:54→20:45)
[2025-03-08] MEDS: PANTOPRAZOLE 40 MG GRANPKT.DR GT (08:57)
[2025-03-08 12:23] VITALS: PULSE 98; RESP 20; RESP 23; O2SAT 98
[2025-03-08 19:06] VITALS: PULSE 95; PULSE 99; RESP 19; RESP 21; O2SAT 100; O2SAT 98
[2025-03-09] VITALS (8 sets, daily range): BP systolic 93–113; BP diastolic 60–77; PULSE 61–121; RESP 19–29; TEMP 36.4–37; O2SAT 97–100
[2025-03-09] MEDS: IPRATROPIUM/ALBUTEROL 3 ML AMPUL.NEB INH ×4 (01:53→19:48)
[2025-03-09] MEDS: BACLOFEN 10 MG TABLET 5 MG GT ×3 (05:26→21:08)
[2025-03-09] MEDS: MIDODRINE 10 MG TABLET GT ×3 (05:27→21:09)
[2025-03-09] MEDS: METOCLOPRAMIDE 5 MG TABLET GT ×3 (05:27→21:08)
--- NOTE | 2025-03-09 06:13 | PC.NURSE ---
nephrostomy output 500 ml
[2025-03-09] MEDS: DEX/HYPRO/GLY ARTIFICAL TEARS 225 DROP/15 ML BTL BOTH EYES (09:18)
[2025-03-09] MEDS: FLUDROCORTISONE 0.1 MG GT (09:18)
[2025-03-09] MEDS: MULTIVITAMIN W MINERALS 1 EACH TABLET GT (09:19)
[2025-03-09] MEDS: NON-FORMULARY *SEE COMMENTS* 1 EA EA 600 EA GT ×2 (09:19→21:08)
[2025-03-09] MEDS: PANTOPRAZOLE 40 MG GRANPKT.DR GT (09:20)
--- NOTE | 2025-03-09 17:31 | PC.NURSE ---
Resident with central line to right upper chest. Completed the antibiotic 02/23/25 and not on IVF. MD made aware that one of the port is not flushing . Keep the central for another 6 weeks as per MD
[2025-03-09] MEDS: NON-FORMULARY *SEE COMMENTS* 1 EA EA 250 EA GT (21:09)
[2025-03-10] VITALS (8 sets, daily range): BP systolic 91–116; BP diastolic 50–79; PULSE 89–114; RESP 19–25; TEMP 36.1–36.6; O2SAT 97–100
[2025-03-10] MEDS: IPRATROPIUM/ALBUTEROL 3 ML AMPUL.NEB INH ×4 (00:49→19:31)
[2025-03-10] MEDS: BACLOFEN 10 MG TABLET 5 MG GT ×3 (05:17→21:18)
[2025-03-10] MEDS: MIDODRINE 10 MG TABLET GT ×3 (05:18→21:19)
[2025-03-10] MEDS: NON-FORMULARY *SEE COMMENTS* 1 EA EA 250 EA GT ×3 (05:18→21:26)
[2025-03-10] MEDS: METOCLOPRAMIDE 5 MG TABLET GT ×3 (05:18→21:19)
--- NOTE | 2025-03-10 08:44 | PC.IP ---
After review of Immunization dates, PCV 20 is recommended for this resident. Aunt Dee is RP and message left to call for telephone witnessed consent. Dee will agree to administration of PCV 20. [facility] Pneumorecs advises administration at this time. With consent, will order for admininstration. Resident has recently completed antibiotics for Osteomyelitis and is not displaying any other signs or symptoms of febrile illness at this time.
[2025-03-10] MEDS: FLUDROCORTISONE 0.1 MG GT (09:48)
[2025-03-10] MEDS: MULTIVITAMIN W MINERALS 1 EACH TABLET GT (09:48)
[2025-03-10] MEDS: NON-FORMULARY *SEE COMMENTS* 1 EA EA 600 EA GT ×2 (09:48→21:18)
[2025-03-10] MEDS: PANTOPRAZOLE 40 MG GRANPKT.DR GT (09:48)
[2025-03-10] MEDS: DEX/HYPRO/GLY ARTIFICAL TEARS 225 DROP/15 ML BTL BOTH EYES (09:48)
--- NOTE | 2025-03-10 22:52 | PD.SAPROG ---
Progress Note - SubAcute DIAGNOSIS (1) Osteomyelitis: Status: Chronic (2) DVT (deep venous thrombosis): Status: Chronic (3) Chronic respiratory failure: Status: Chronic (4) Ventilator dependent: Status: Chronic (5) G tube feedings: Status: Chronic (6) Tracheostomy in place: Status: Chronic (7) Seizures: Status: Chronic (8) Adrenal insufficiency: Status: Chronic (9) Ureteric obstruction: Status: Chronic OBJECTIVE Most recent vital signs: Last Vital Signs Temp 97.8 F 03/10/25 17:46 Pulse 112 H 03/10/25 17:46 Resp 22 H 03/10/25 17:46 BP 91/50 L 03/10/25 17:46 Pulse Ox 100 03/10/25 17:46 O2 Del Method Mechanical Ventilation 03/09/25 17:06 FiO2 40 03/10/25 22:00 Neurological:: awake (no cognizant response) Respiratory:: lungs clear (ventilator dependent) Cardiovascular: RRR Abdomen: soft Extremities:: deformities (spastic contractures) Decubitus:: unchanged (osteomyelitis) Tracheostomy:: to ventilator Feeding per:: G tube Complaints:: none ASSESSMENT & PLAN Assessment: 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 Tolerating antibiotics. afebrile. VSS. No new issues. stable status quo Plan: Current tratment reviewed including Ventilator settings and continued
[2025-03-11] VITALS (7 sets, daily range): BP systolic 100; BP diastolic 55–57; PULSE 90–111; RESP 21–26; TEMP 36.8–38.9; O2SAT 99–100
[2025-03-11] MEDS: IPRATROPIUM/ALBUTEROL 3 ML AMPUL.NEB INH ×4 (00:15→18:46)
[2025-03-11] MEDS: BACLOFEN 10 MG TABLET 5 MG GT ×3 (05:35→21:05)
[2025-03-11] MEDS: METOCLOPRAMIDE 5 MG TABLET GT ×3 (05:36→21:05)
[2025-03-11] MEDS: NON-FORMULARY *SEE COMMENTS* 1 EA EA 250 EA GT ×3 (05:37→21:05)
[2025-03-11] MEDS: MIDODRINE 10 MG TABLET GT ×3 (05:37→21:05)
[2025-03-11] MEDS: DEX/HYPRO/GLY ARTIFICAL TEARS 225 DROP/15 ML BTL BOTH EYES (09:19)
[2025-03-11] MEDS: FLUDROCORTISONE 0.1 MG GT (09:19)
[2025-03-11] MEDS: MULTIVITAMIN W MINERALS 1 EACH TABLET GT (09:20)
[2025-03-11] MEDS: NON-FORMULARY *SEE COMMENTS* 1 EA EA 600 EA GT ×2 (09:21→20:52)
[2025-03-11] MEDS: PANTOPRAZOLE 40 MG GRANPKT.DR GT (09:22)
[2025-03-11] MEDS: MAGNESIUM HYDROXIDE 30 ML ORAL SUSP ML GT (15:45)
--- NOTE | 2025-03-11 18:19 | PC.NURSE ---
Fever 102.0 rectally reported at this time. initiated cooling measures will recheck temperature in 1 hour. Will hand off report to [facility] nurse at 1830.
[2025-03-11] MEDS: ACETAMINOPHEN 325 MG TABLET GT (18:47)
--- NOTE | 2025-03-11 19:50 | PC.NURSE ---
Resident had elevated rectal temp of 102 rechecked at 1900 rectal temp was 101.0. Notified Dr Silverio with new order to start the elevated temp protocol.
[2025-03-11 20:09] LABS: Basophils # (Auto) 0.1 Thou/mm3 (0.0-0.2); Basophils % (Auto) 0 % (0-2.5); Eosinophils # (Auto) 0.9 Thou/mm3 (0.0-0.5); Eosinophils % (Auto) 3 % (0-10); Hematocrit 31.0 % (41.0-53.0); Hemoglobin 10.2 g/dL (13.5-16.0); Immature Granulocytes Auto 0.14 Thou/mm3 (0.00-0.00); Lymphocytes # (Auto) 1.6 Thou/mm3 (1.0-4.8); Lymphocytes % (Auto) 6 % (10-50); Mean Corpuscular HGB Conc 32.9 g/dl (31.0-37.0); Mean Corpuscular Hemoglobin 28.8 pg (25.0-35.0); Mean Corpuscular Volume 88 fL (80-100); Monocytes # (Auto) 1.2 Thou/mm3 (0.0-0.8); Monocytes % (Auto) 4 % (0-12); Neutrophils # (Auto) 23.7 Thou/mm3 (1.8-7.7); Neutrophils % (Auto) 86 % (37-80); Nucleated Red Blood Cell # 0.00 Thou/mm3 (0.00-0.00); Nucleated Red Blood Cell % 0 /100 WBC (0); Platelet Count 413 Thou/mm3 (140-440); RDW Standard Deviation 49.8 fL (35.1-43.9); Red Blood Count 3.54 Miln/mm3 (4.50-5.90); White Blood Count 27.7 Thou/mm3 (3.8-10.6)
[2025-03-11 20:46] LABS: Procalcitonin 1.04 ng/ml (0.0-0.49)
[2025-03-11 20:58] LABS: COVID-19 Antigen (In-House) Negative (Negative); Influenza A Ag Negative; Influenza B Ag Negative
[2025-03-11 21:25] LABS: Collection Type, Urine Catheter; Squamous Epithelial Cell,Urine 0 /hpf (0-5)
[2025-03-11 21:40] LABS: Bacteria,Urine 1+; Bilirubin,Urine Negative (Negative); Blood,Urine Trace (Negative); Clarity,Urine Turbid (Clear/Hazy); Color,Urine Yellow (Lt Yel-Yel); Glucose, Urine Negative (Negative); Ketones,Urine Negative (Negative); Leukocyte Esterase,Urine Positive (Negative); Nitrite,Urine Negative (Negative); PH,Urine 8.5 (5.0-7.0); Protein,Urine 2+ (Neg - Trace); RBC,Urine 61 /hpf (0-3); Specific Gravity,Urine 1.021 (1.001-1.035); Triple Phosphate Crystal,Urine 2+; Urobilinogen,Urine 2.0 mg/dL (0.0-1.0); WBC,Urine 86 /hpf (0-5)
[2025-03-11 21:41] LABS: Culture Indicated,Urine Yes
[2025-03-11] MEDS: BISACODYL 10 MG SUPP.RECT PR (23:50)
[2025-03-12] VITALS (8 sets, daily range): BP systolic 91–100; BP diastolic 60–68; PULSE 85–107; RESP 20–28; TEMP 36.3–37; O2SAT 98–100
[2025-03-12] MEDS: IPRATROPIUM/ALBUTEROL 3 ML AMPUL.NEB INH ×4 (00:55→18:51)
[2025-03-12] MEDS: BACLOFEN 10 MG TABLET 5 MG GT ×3 (05:48→21:30)
[2025-03-12] MEDS: MIDODRINE 10 MG TABLET GT (05:49)
[2025-03-12] MEDS: METOCLOPRAMIDE 5 MG TABLET GT ×3 (05:49→21:30)
[2025-03-12] MEDS: NON-FORMULARY *SEE COMMENTS* 1 EA EA 250 EA GT ×3 (05:49→21:30)
--- NOTE | 2025-03-12 07:03 | PC.NURSE ---
Dr Silverio was updated with lab reults, no new orders at this time, pending cultures
[2025-03-12] MEDS: DEX/HYPRO/GLY ARTIFICAL TEARS 225 DROP/15 ML BTL BOTH EYES (09:25)
[2025-03-12] MEDS: FLUDROCORTISONE 0.1 MG GT (09:26)
[2025-03-12] MEDS: NON-FORMULARY *SEE COMMENTS* 1 EA EA 600 EA GT (09:27)
[2025-03-12] MEDS: MULTIVITAMIN W MINERALS 1 EACH TABLET GT (09:27)
[2025-03-12] MEDS: PANTOPRAZOLE 40 MG GRANPKT.DR GT (09:31)
--- NOTE | 2025-03-12 09:51 | ESPR_ITS ---
Progress Note - SubAcute DIAGNOSIS (1) Osteomyelitis: Status: Chronic (2) DVT (deep venous thrombosis): Status: Chronic (3) Chronic respiratory failure: Status: Chronic (4) Ventilator dependent: Status: Chronic (5) G tube feedings: Status: Chronic (6) Tracheostomy in place: Status: Chronic (7) Seizures: Status: Chronic (8) Adrenal insufficiency: Status: Chronic (9) Ureteric obstruction: Status: Chronic OBJECTIVE Most recent vital signs: Last Vital Signs Temp 97.8 F 03/12/25 06:00 Pulse 99 03/12/25 07:00 Resp 25 H 03/12/25 07:00 BP 100/60 03/12/25 06:00 Pulse Ox 100 03/12/25 07:00 O2 Del Method Mechanical Ventilation 03/09/25 17:06 FiO2 40 03/12/25 07:00 Neurological:: awake (no cognizant response) Respiratory:: lungs clear (ventilator dependent) Cardiovascular: RRR Abdomen: soft Extremities:: deformities (spastic contractures) Decubitus:: unchanged (osteomyelitis) Tracheostomy:: to ventilator Feeding per:: G tube Complaints:: none ASSESSMENT & PLAN Assessment: 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 Spiked fever, work up under way. fever abated over a day. close follow up, if spikes again will transfer to acute care for treatment. Plan: Current tratment reviewed including Ventilator settings and continued
--- NOTE | 2025-03-12 12:01 | PC.SS ---
Resident is laying in bed with head of the bed elevated with call light properly placed with no signs of distress. Resident has no change sin care or condition as he remains on vent with trach in place and GT for medication and nutrition. Resident has absence of speech and is represented by his aunt, he remains a [facility] client. Resident will remain in current care and will continue to have all subacute care needs met staff.
[2025-03-12] MEDS: PHENYTOIN 50 MG TAB.CHEW 600 MG GT (21:29)
[2025-03-13] VITALS (8 sets, daily range): BP systolic 93–109; BP diastolic 56–70; PULSE 83–109; RESP 16–28; TEMP 36.7–37; O2SAT 97–100
[2025-03-13] MEDS: IPRATROPIUM/ALBUTEROL 3 ML AMPUL.NEB INH ×4 (00:33→18:41)
[2025-03-13] MEDS: NON-FORMULARY *SEE COMMENTS* 1 EA EA 250 EA GT ×3 (05:13→21:15)
[2025-03-13] MEDS: BACLOFEN 10 MG TABLET 5 MG GT ×3 (05:14→21:14)
[2025-03-13] MEDS: MIDODRINE 10 MG TABLET GT ×3 (05:14→21:15)
[2025-03-13] MEDS: METOCLOPRAMIDE 5 MG TABLET GT ×3 (05:14→21:15)
[2025-03-13 07:49] LABS: Basophils # (Auto) 0.1 Thou/mm3 (0.0-0.2); Basophils % (Auto) 1 % (0-2.5); Eosinophils # (Auto) 4.6 Thou/mm3 (0.0-0.5); Eosinophils % (Auto) 29 % (0-10); Hematocrit 30.4 % (41.0-53.0); Hemoglobin 9.7 g/dL (13.5-16.0); Immature Granulocytes Auto 0.09 Thou/mm3 (0.00-0.00); Lymphocytes # (Auto) 1.4 Thou/mm3 (1.0-4.8); Lymphocytes % (Auto) 9 % (10-50); Mean Corpuscular HGB Conc 31.9 g/dl (31.0-37.0); Mean Corpuscular Hemoglobin 28.6 pg (25.0-35.0); Mean Corpuscular Volume 90 fL (80-100); Monocytes # (Auto) 1.1 Thou/mm3 (0.0-0.8); Monocytes % (Auto) 7 % (0-12); Neutrophils # (Auto) 8.7 Thou/mm3 (1.8-7.7); Neutrophils % (Auto) 55 % (37-80); Nucleated Red Blood Cell # 0.00 Thou/mm3 (0.00-0.00); Nucleated Red Blood Cell % 0 /100 WBC (0); Platelet Count 386 Thou/mm3 (140-440); RDW Standard Deviation 50.4 fL (35.1-43.9); Red Blood Count 3.39 Miln/mm3 (4.50-5.90); White Blood Count 16.0 Thou/mm3 (3.8-10.6)
[2025-03-13 07:56] LABS: Alanine Aminotransferase 59 U/L (10-49); Albumin, Serum 3.8 gm/dL (3.5-5.0); Albumin/Globulin Ratio 1.2 (1.2-2.2); Alkaline Phosphatase 192 U/L (46-116); Anion Gap 10 (7-16); Aspartate Amino Transferase 32 U/L (0-34); BUN/Creatinine Ratio 23 Ratio (12-20); Bilirubin,Total < 0.2 mg/dL (0.3-1.2); Blood Urea Nitrogen 43 mg/dL (9-23); Calcium 8.8 mg/dL (8.3-10.6); Calcium (Corrected) 9.0 mg/dL (8.5-10.1); Carbon Dioxide 30.3 mMol/L (20.0-31.0); Chloride 103 mMol/L (98-107); Creatinine (Component) 1.9 mg/dL (0.6-1.3); Estimated Creatinine Clearance 45.3 mL/min (>60); Globulin 3.1 gm/dL (2.3-3.5); Glucose 144 mg/dL (74-106); Osmolality,Calculated 298 (275-295); Phenytoin (Dilantin) 8.7 mcg/mL; Potassium 4.3 mMol/L (3.4-5.1); Sodium 143 mMol/L (136-145); Total Protein 6.9 gm/dL (5.7-8.2); eGFR 45 See Note
[2025-03-13] MEDS: FLUDROCORTISONE 0.1 MG GT (09:59)
[2025-03-13] MEDS: DEX/HYPRO/GLY ARTIFICAL TEARS 225 DROP/15 ML BTL BOTH EYES (09:59)
[2025-03-13] MEDS: PHENYTOIN 50 MG TAB.CHEW 600 MG GT (10:00)
[2025-03-13] MEDS: PANTOPRAZOLE 40 MG GRANPKT.DR GT (10:00)
[2025-03-13] MEDS: MULTIVITAMIN W MINERALS 1 EACH TABLET GT (10:00)
[2025-03-13] MEDS: ACETAMINOPHEN 325 MG TABLET GT (14:16)
[2025-03-14] VITALS (8 sets, daily range): BP systolic 100–111; BP diastolic 66–70; PULSE 74–116; RESP 18–25; TEMP 36.2–36.6; O2SAT 98–100
[2025-03-14] MEDS: IPRATROPIUM/ALBUTEROL 3 ML AMPUL.NEB INH ×4 (00:17→18:51)
[2025-03-14] MEDS: MIDODRINE 10 MG TABLET GT ×3 (05:24→21:15)
[2025-03-14] MEDS: METOCLOPRAMIDE 5 MG TABLET GT ×3 (05:24→21:14)
[2025-03-14] MEDS: BACLOFEN 10 MG TABLET 5 MG GT ×3 (05:24→21:14)
[2025-03-14] MEDS: NON-FORMULARY *SEE COMMENTS* 1 EA EA 250 EA GT ×3 (05:25→21:15)
[2025-03-14] MEDS: PHENYTOIN 50 MG TAB.CHEW 600 MG GT ×2 (08:50→20:42)
[2025-03-14] MEDS: DEX/HYPRO/GLY ARTIFICAL TEARS 225 DROP/15 ML BTL BOTH EYES (08:51)
[2025-03-14] MEDS: FLUDROCORTISONE 0.1 MG GT (08:51)
[2025-03-14] MEDS: PANTOPRAZOLE 40 MG GRANPKT.DR GT (08:52)
[2025-03-14] MEDS: MULTIVITAMIN W MINERALS 1 EACH TABLET GT (08:52)
[2025-03-15] VITALS (8 sets, daily range): BP systolic 94–115; BP diastolic 65–72; PULSE 77–111; RESP 17–25; TEMP 36.2–37.1; O2SAT 96–100
[2025-03-15] MEDS: IPRATROPIUM/ALBUTEROL 3 ML AMPUL.NEB INH ×4 (00:42→18:29)
[2025-03-15] MEDS: BACLOFEN 10 MG TABLET 5 MG GT ×3 (05:20→21:03)
[2025-03-15] MEDS: MIDODRINE 10 MG TABLET GT ×3 (05:21→21:03)
[2025-03-15] MEDS: NON-FORMULARY *SEE COMMENTS* 1 EA EA 250 EA GT ×3 (05:21→21:03)
[2025-03-15] MEDS: METOCLOPRAMIDE 5 MG TABLET GT ×3 (05:21→21:03)
[2025-03-15] MEDS: PHENYTOIN 50 MG TAB.CHEW 600 MG GT ×2 (09:29→20:23)
[2025-03-15] MEDS: DEX/HYPRO/GLY ARTIFICAL TEARS 225 DROP/15 ML BTL BOTH EYES (09:29)
[2025-03-15] MEDS: FLUDROCORTISONE 0.1 MG GT (09:31)
[2025-03-15] MEDS: MULTIVITAMIN W MINERALS 1 EACH TABLET GT (09:32)
[2025-03-15] MEDS: PANTOPRAZOLE 40 MG GRANPKT.DR GT (09:35)
--- NOTE | 2025-03-15 19:40 | PC.NURSE ---
late entry for early reported issue to MD at around 1330. Reviewed one of 3 cultures with MD. (urine culture) new organism to urine( Morganni Morganella) new order to start Bactrim DS per GT BID x7 days. Resident has been a febrile. still awaiting for SP cultures. Blood cultures no nicol noted after 48hrs. First dose given by Becca DEMARCO at around 3 or so. Notified resident's aunt Dee. Will continue to monitor.
[2025-03-15] MEDS: MAGNESIUM HYDROXIDE 30 ML ORAL SUSP ML GT (20:46)
[2025-03-16] VITALS (8 sets, daily range): BP systolic 97–119; BP diastolic 66–78; PULSE 75–103; RESP 17–26; TEMP 36.4–36.7; O2SAT 97–100
[2025-03-16] MEDS: IPRATROPIUM/ALBUTEROL 3 ML AMPUL.NEB INH ×4 (00:50→19:01)
--- NOTE | 2025-03-16 01:21 | PC.NURSE ---
Received in report that resident was started on Bactrim DS for UTI (urine culture results), first dose given at 1515, pulled from [facility] sent over recommendation for Bactrim Suspension. Spke with the Pharmacist for clarification-she stated Bactrim can clog the GT so they recommend the suspension. Bactrim order was clarified to Suspension, per Pharmacist would send midnight delivery, changed order in [email or web address] to start suspension in AM.
--- NOTE | 2025-03-16 03:33 | PC.NURSE ---
Resident noted to bypass x2 this shift from his nephrostomy site with 100 cc noted in nephrosotomy drainage bag. Nephrostomy dressing changed and noted tubing in place with sutures intact. Charge nurse notified.
[2025-03-16] MEDS: METOCLOPRAMIDE 5 MG TABLET GT ×3 (05:04→21:00)
[2025-03-16] MEDS: BACLOFEN 10 MG TABLET 5 MG GT ×3 (05:04→21:00)
[2025-03-16] MEDS: MIDODRINE 10 MG TABLET GT ×2 (05:04→14:08)
[2025-03-16] MEDS: NON-FORMULARY *SEE COMMENTS* 1 EA EA 250 EA GT ×3 (05:05→21:00)
[2025-03-16] MEDS: DEX/HYPRO/GLY ARTIFICAL TEARS 225 DROP/15 ML BTL BOTH EYES (08:43)
[2025-03-16] MEDS: MULTIVITAMIN W MINERALS 1 EACH TABLET GT (08:44)
[2025-03-16] MEDS: FLUDROCORTISONE 0.1 MG GT (08:44)
[2025-03-16] MEDS: NON-FORMULARY *SEE COMMENTS* 1 EA EA GT ×2 (08:44→21:00)
[2025-03-16] MEDS: PANTOPRAZOLE 40 MG GRANPKT.DR GT (08:45)
[2025-03-16] MEDS: PHENYTOIN 50 MG TAB.CHEW 600 MG GT (08:54)
--- NOTE | 2025-03-16 15:43 | PC.PT ---
Dr Silverio made aware of the sputum c & s result, currently on Bactrim for UTI. Order rceived to do cbc tomorrow to follow up elevated WBC
[2025-03-16] MEDS: BISACODYL 10 MG SUPP.RECT PR (17:47)
[2025-03-16] MEDS: PHENYTOIN 600 EA GT (21:00)
[2025-03-17] VITALS (8 sets, daily range): BP systolic 94–112; BP diastolic 65–74; PULSE 69–111; RESP 16–26; TEMP 36.3–36.7; O2SAT 98–100
[2025-03-17] MEDS: IPRATROPIUM/ALBUTEROL 3 ML AMPUL.NEB INH ×4 (01:16→18:53)
[2025-03-17] MEDS: NON-FORMULARY *SEE COMMENTS* 1 EA EA 250 EA GT ×3 (05:25→21:11)
[2025-03-17] MEDS: BACLOFEN 10 MG TABLET 5 MG GT ×3 (05:25→21:11)
[2025-03-17] MEDS: METOCLOPRAMIDE 5 MG TABLET GT ×3 (05:25→21:11)
[2025-03-17] MEDS: MIDODRINE 10 MG TABLET GT ×3 (05:25→21:11)
[2025-03-17 05:59] LABS: Basophils # (Auto) 0.1 Thou/mm3 (0.0-0.2); Basophils % (Auto) 1 % (0-2.5); Eosinophils # (Auto) 3.4 Thou/mm3 (0.0-0.5); Eosinophils % (Auto) 25 % (0-10); Hematocrit 30.2 % (41.0-53.0); Hemoglobin 9.6 g/dL (13.5-16.0); Immature Granulocytes Auto 0.06 Thou/mm3 (0.00-0.00); Lymphocytes # (Auto) 1.3 Thou/mm3 (1.0-4.8); Lymphocytes % (Auto) 10 % (10-50); Mean Corpuscular HGB Conc 31.8 g/dl (31.0-37.0); Mean Corpuscular Hemoglobin 28.2 pg (25.0-35.0); Mean Corpuscular Volume 89 fL (80-100); Monocytes # (Auto) 0.8 Thou/mm3 (0.0-0.8); Monocytes % (Auto) 6 % (0-12); Neutrophils # (Auto) 8.2 Thou/mm3 (1.8-7.7); Neutrophils % (Auto) 59 % (37-80); Nucleated Red Blood Cell # 0.00 Thou/mm3 (0.00-0.00); Nucleated Red Blood Cell % 0 /100 WBC (0); Platelet Count 451 Thou/mm3 (140-440); RDW Standard Deviation 49.5 fL (35.1-43.9); Red Blood Count 3.40 Miln/mm3 (4.50-5.90); White Blood Count 13.9 Thou/mm3 (3.8-10.6)
--- NOTE | 2025-03-17 06:10 | PC.NURSE ---
nephrostomy 250ml
[2025-03-17] MEDS: PHENYTOIN 600 EA GT ×2 (08:43→21:09)
[2025-03-17] MEDS: MULTIVITAMIN W MINERALS 1 EACH TABLET GT (08:43)
[2025-03-17] MEDS: FLUDROCORTISONE 0.1 MG GT (08:43)
[2025-03-17] MEDS: DEX/HYPRO/GLY ARTIFICAL TEARS 225 DROP/15 ML BTL BOTH EYES (08:43)
[2025-03-17] MEDS: NON-FORMULARY *SEE COMMENTS* 1 EA EA GT ×2 (08:44→21:10)
[2025-03-17] MEDS: PANTOPRAZOLE 40 MG GRANPKT.DR GT (08:44)
--- NOTE | 2025-03-17 16:15 | ESPR_ITS ---
Progress Note - SubAcute DIAGNOSIS (1) Osteomyelitis: Status: Chronic (2) DVT (deep venous thrombosis): Status: Chronic (3) Chronic respiratory failure: Status: Chronic (4) Ventilator dependent: Status: Chronic (5) G tube feedings: Status: Chronic (6) Tracheostomy in place: Status: Chronic (7) Seizures: Status: Chronic (8) Adrenal insufficiency: Status: Chronic (9) Ureteric obstruction: Status: Chronic OBJECTIVE Most recent vital signs: Last Vital Signs Temp 97.8 F 03/21/25 05:48 Pulse 87 03/21/25 07:14 Resp 21 H 03/21/25 07:14 BP 108/70 03/21/25 05:48 Pulse Ox 99 03/21/25 07:14 O2 Del Method Mechanical Ventilation 03/21/25 05:48 FiO2 40 03/21/25 07:14 Neurological:: awake (no cognizant response) Speech:: none Respiratory:: lungs clear (ventilator dependent) Cardiovascular: RRR Abdomen: soft Extremities:: deformities (spastic contractures) Decubitus:: unchanged (osteomyelitis) Tracheostomy:: to ventilator Feeding per:: G tube Complaints:: none ASSESSMENT & PLAN Assessment: 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 Spiked fever, work up under way. fever abated over a day. close follow up, if spikes again will transfer to acute care for treatment. Plan: Current tratment reviewed including Ventilator settings and continued
--- NOTE | 2025-03-17 17:44 | PC.NURSE ---
. made aware resident nephrostomy bag has blood on it, and suprapubic ath was leaking, MD. came and check on it he said to monitor, then cbc result was received, WBC was 13.9, no new order received, we will continue to monitor.
[2025-03-18] VITALS (8 sets, daily range): BP systolic 90–109; BP diastolic 62–73; PULSE 89–108; RESP 16–24; TEMP 36.3–36.6; O2SAT 95–100
[2025-03-18] MEDS: IPRATROPIUM/ALBUTEROL 3 ML AMPUL.NEB INH ×4 (00:55→18:29)
[2025-03-18] MEDS: NON-FORMULARY *SEE COMMENTS* 1 EA EA 250 EA GT ×3 (05:40→21:26)
[2025-03-18] MEDS: METOCLOPRAMIDE 5 MG TABLET GT ×3 (05:40→21:26)
[2025-03-18] MEDS: MIDODRINE 10 MG TABLET GT ×3 (05:40→21:26)
[2025-03-18] MEDS: BACLOFEN 10 MG TABLET 5 MG GT ×3 (05:40→21:26)
--- NOTE | 2025-03-18 05:55 | PC.NURSE ---
Nephrostomy 50ml, tube connector leaking
[2025-03-18] MEDS: DEX/HYPRO/GLY ARTIFICAL TEARS 225 DROP/15 ML BTL BOTH EYES (09:56)
[2025-03-18] MEDS: PHENYTOIN 600 EA GT ×2 (09:58→21:27)
[2025-03-18] MEDS: FLUDROCORTISONE 0.1 MG GT (09:58)
[2025-03-18] MEDS: MULTIVITAMIN W MINERALS 1 EACH TABLET GT (09:59)
[2025-03-18] MEDS: NON-FORMULARY *SEE COMMENTS* 1 EA EA GT ×2 (10:01→21:26)
[2025-03-18] MEDS: PANTOPRAZOLE 40 MG GRANPKT.DR GT (10:01)
[2025-03-18] MEDS: MAGNESIUM HYDROXIDE 30 ML ORAL SUSP ML GT (21:26)
[2025-03-19] VITALS (9 sets, daily range): BP systolic 90–102; BP diastolic 56–64; PULSE 92–114; RESP 17–29; TEMP 36.4–36.6; O2SAT 94–100
[2025-03-19] MEDS: IPRATROPIUM/ALBUTEROL 3 ML AMPUL.NEB INH ×4 (01:01→16:00)
[2025-03-19] MEDS: MIDODRINE 10 MG TABLET GT ×2 (05:33→14:04)
[2025-03-19] MEDS: METOCLOPRAMIDE 5 MG TABLET GT ×2 (05:34→14:04)
[2025-03-19] MEDS: BACLOFEN 10 MG TABLET 5 MG GT ×2 (05:34→14:04)
[2025-03-19] MEDS: NON-FORMULARY *SEE COMMENTS* 1 EA EA 250 EA GT ×2 (05:34→14:04)
[2025-03-19] MEDS: DEX/HYPRO/GLY ARTIFICAL TEARS 225 DROP/15 ML BTL BOTH EYES (08:42)
[2025-03-19] MEDS: MULTIVITAMIN W MINERALS 1 EACH TABLET GT (08:42)
[2025-03-19] MEDS: PHENYTOIN 600 EA GT ×2 (08:42→20:48)
[2025-03-19] MEDS: NON-FORMULARY *SEE COMMENTS* 1 EA EA GT ×2 (08:42→20:48)
[2025-03-19] MEDS: FLUDROCORTISONE 0.1 MG GT (08:42)
[2025-03-19] MEDS: PANTOPRAZOLE 40 MG GRANPKT.DR GT (08:43)
[2025-03-19] MEDS: BISACODYL 10 MG SUPP.RECT PR (14:27)
[2025-03-20] VITALS (9 sets, daily range): BP systolic 94–129; BP diastolic 62–84; PULSE 90–105; RESP 18–25; TEMP 36.1–36.9; O2SAT 97–100
[2025-03-20] MEDS: BACLOFEN 10 MG TABLET 5 MG GT ×3 (05:10→21:19)
[2025-03-20] MEDS: IPRATROPIUM/ALBUTEROL 3 ML AMPUL.NEB INH ×3 (05:15→19:42)
--- NOTE | 2025-03-20 06:02 | PC.NURSE ---
Nephrostomy 350ml, bright yellow, no blood
--- NOTE | 2025-03-20 06:03 | PC.NURSE ---
ATB for UTI, no s/s of pain and discomfort, current plans of care are effective and appropriate.
[2025-03-20] MEDS: DEX/HYPRO/GLY ARTIFICAL TEARS 225 DROP/15 ML BTL BOTH EYES (08:42)
[2025-03-20] MEDS: FLUDROCORTISONE 0.1 MG GT (08:43)
[2025-03-20] MEDS: MULTIVITAMIN W MINERALS 1 EACH TABLET GT (08:45)
[2025-03-20] MEDS: NON-FORMULARY *SEE COMMENTS* 1 EA EA GT ×2 (08:45→21:19)
[2025-03-20] MEDS: PANTOPRAZOLE 40 MG GRANPKT.DR GT (09:28)
[2025-03-20] MEDS: METOCLOPRAMIDE 5 MG TABLET GT ×2 (14:04→21:19)
[2025-03-20] MEDS: NON-FORMULARY *SEE COMMENTS* 1 EA EA 250 EA GT ×2 (14:10→21:20)
[2025-03-20] MEDS: MIDODRINE 10 MG TABLET GT (21:20)
[2025-03-21] VITALS (8 sets, daily range): BP systolic 98–108; BP diastolic 66–78; PULSE 84–108; RESP 16–22; TEMP 36.4–37.1; O2SAT 97–99
[2025-03-21] MEDS: IPRATROPIUM/ALBUTEROL 3 ML AMPUL.NEB INH ×4 (00:50→18:56)
[2025-03-21] MEDS: MIDODRINE 10 MG TABLET GT ×3 (05:39→22:52)
[2025-03-21] MEDS: BACLOFEN 10 MG TABLET 5 MG GT ×3 (05:40→22:51)
[2025-03-21] MEDS: METOCLOPRAMIDE 5 MG TABLET GT ×3 (05:40→22:52)
--- NOTE | 2025-03-21 07:46 | PD.SAPROG ---
Progress Note - SubAcute DIAGNOSIS (1) Osteomyelitis: Status: Chronic (2) DVT (deep venous thrombosis): Status: Chronic (3) Chronic respiratory failure: Status: Chronic (4) Ventilator dependent: Status: Chronic (5) G tube feedings: Status: Chronic (6) Tracheostomy in place: Status: Chronic (7) Seizures: Status: Chronic (8) Adrenal insufficiency: Status: Chronic (9) Ureteric obstruction: Status: Chronic OBJECTIVE Most recent vital signs: Last Vital Signs Temp 97.8 F 03/21/25 05:48 Pulse 87 03/21/25 07:14 Resp 21 H 03/21/25 07:14 BP 108/70 03/21/25 05:48 Pulse Ox 99 03/21/25 07:14 O2 Del Method Mechanical Ventilation 03/21/25 05:48 FiO2 40 03/21/25 07:14 Neurological:: awake (no cognizant response) Speech:: none Respiratory:: lungs clear (ventilator dependent) Cardiovascular: RRR Abdomen: soft Extremities:: deformities (spastic contractures) Decubitus:: unchanged (osteomyelitis) Tracheostomy:: to ventilator Feeding per:: G tube Complaints:: none ASSESSMENT & PLAN Assessment: 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 Spiked fever, work up under way. fever abated over a day. close follow up, if spikes again will transfer to acute care for treatment. Plan: Current tratment reviewed including Ventilator settings and continued
[2025-03-21] MEDS: DEX/HYPRO/GLY ARTIFICAL TEARS 225 DROP/15 ML BTL BOTH EYES (09:37)
[2025-03-21] MEDS: FLUDROCORTISONE 0.1 MG GT (09:38)
[2025-03-21] MEDS: MULTIVITAMIN W MINERALS 1 EACH TABLET GT (09:41)
[2025-03-21] MEDS: NON-FORMULARY *SEE COMMENTS* 1 EA EA GT ×2 (09:43→20:57)
[2025-03-21] MEDS: NON-FORMULARY *SEE COMMENTS* 1 EA EA 250 EA GT ×2 (14:15→22:52)
[2025-03-22] VITALS (8 sets, daily range): BP systolic 94–108; BP diastolic 58–70; PULSE 80–113; RESP 16–22; TEMP 36.1–37; O2SAT 94–100
[2025-03-22] MEDS: IPRATROPIUM/ALBUTEROL 3 ML AMPUL.NEB INH ×4 (00:31→18:27)
[2025-03-22] MEDS: BACLOFEN 10 MG TABLET 5 MG GT ×3 (05:36→21:25)
[2025-03-22] MEDS: METOCLOPRAMIDE 5 MG TABLET GT ×3 (05:36→21:25)
[2025-03-22] MEDS: MIDODRINE 10 MG TABLET GT ×3 (05:36→21:26)
[2025-03-22] MEDS: FLUDROCORTISONE 0.1 MG GT (09:41)
[2025-03-22] MEDS: DEX/HYPRO/GLY ARTIFICAL TEARS 225 DROP/15 ML BTL BOTH EYES (09:41)
[2025-03-22] MEDS: MULTIVITAMIN W MINERALS 1 EACH TABLET GT (09:43)
[2025-03-22] MEDS: NON-FORMULARY *SEE COMMENTS* 1 EA EA GT ×2 (09:44→21:33)
[2025-03-22] MEDS: NON-FORMULARY *SEE COMMENTS* 1 EA EA 250 EA GT ×2 (14:35→21:27)
[2025-03-22] MEDS: PHENYTOIN 600 EA GT (21:32)
[2025-03-22] MEDS: ACETAMINOPHEN 325 MG TABLET GT (21:35)
[2025-03-22] MEDS: BISACODYL 10 MG SUPP.RECT PR (23:10)
[2025-03-23] VITALS (8 sets, daily range): BP systolic 93–107; BP diastolic 61–70; PULSE 84–137; RESP 16–24; TEMP 36.4–37.2; O2SAT 96–100
[2025-03-23] MEDS: IPRATROPIUM/ALBUTEROL 3 ML AMPUL.NEB INH ×4 (00:13→19:12)
[2025-03-23] MEDS: METOCLOPRAMIDE 5 MG TABLET GT ×3 (05:09→22:09)
[2025-03-23] MEDS: BACLOFEN 10 MG TABLET 5 MG GT ×3 (05:09→22:00)
[2025-03-23] MEDS: NON-FORMULARY *SEE COMMENTS* 1 EA EA 250 EA GT ×3 (05:10→22:12)
[2025-03-23] MEDS: MIDODRINE 10 MG TABLET GT ×3 (05:11→22:12)
[2025-03-23] MEDS: DEX/HYPRO/GLY ARTIFICAL TEARS 225 DROP/15 ML BTL BOTH EYES (09:18)
[2025-03-23] MEDS: FLUDROCORTISONE 0.1 MG GT (09:20)
[2025-03-23] MEDS: PHENYTOIN 600 EA GT (09:20)
[2025-03-23] MEDS: MULTIVITAMIN W MINERALS 1 EACH TABLET GT (09:21)
[2025-03-23] MEDS: ACETAMINOPHEN 325 MG TABLET GT (09:23)
[2025-03-24] VITALS (9 sets, daily range): BP systolic 101–114; BP diastolic 61–75; PULSE 90–118; RESP 16–34; TEMP 36.3–37.3; O2SAT 98–100
[2025-03-24] MEDS: IPRATROPIUM/ALBUTEROL 3 ML AMPUL.NEB INH ×4 (01:10→19:31)
[2025-03-24] MEDS: METOCLOPRAMIDE 5 MG TABLET GT ×3 (05:25→21:02)
[2025-03-24] MEDS: NON-FORMULARY *SEE COMMENTS* 1 EA EA 250 EA GT ×3 (05:25→21:02)
[2025-03-24] MEDS: MIDODRINE 10 MG TABLET GT ×3 (05:25→21:02)
[2025-03-24] MEDS: BACLOFEN 10 MG TABLET 5 MG GT ×3 (05:25→21:01)
[2025-03-24] MEDS: PHENYTOIN 600 EA GT ×2 (08:37→21:08)
[2025-03-24] MEDS: MULTIVITAMIN W MINERALS 1 EACH TABLET GT (08:42)
[2025-03-24] MEDS: DEX/HYPRO/GLY ARTIFICAL TEARS 225 DROP/15 ML BTL BOTH EYES (08:42)
[2025-03-24] MEDS: PANTOPRAZOLE 40 MG GRANPKT.DR GT (08:44)
[2025-03-24] MEDS: FLUDROCORTISONE 0.1 MG GT (09:00)
[2025-03-24] MEDS: ACETAMINOPHEN 325 MG TABLET GT (09:01)
[2025-03-25] VITALS (8 sets, daily range): BP systolic 92–114; BP diastolic 61–77; PULSE 85–118; RESP 16–27; TEMP 36.4–36.9; O2SAT 97–99
[2025-03-25] MEDS: IPRATROPIUM/ALBUTEROL 3 ML AMPUL.NEB INH ×4 (01:37→18:29)
[2025-03-25] MEDS: NON-FORMULARY *SEE COMMENTS* 1 EA EA 250 EA GT ×3 (05:25→21:09)
[2025-03-25] MEDS: BACLOFEN 10 MG TABLET 5 MG GT ×3 (05:25→21:09)
[2025-03-25] MEDS: MIDODRINE 10 MG TABLET GT ×3 (05:25→21:09)
[2025-03-25] MEDS: METOCLOPRAMIDE 5 MG TABLET GT ×3 (05:25→21:09)
[2025-03-25] MEDS: PHENYTOIN 600 EA GT ×2 (08:54→21:09)
[2025-03-25] MEDS: MULTIVITAMIN W MINERALS 1 EACH TABLET GT (08:56)
[2025-03-25] MEDS: FLUDROCORTISONE 0.1 MG GT (08:56)
[2025-03-25] MEDS: DEX/HYPRO/GLY ARTIFICAL TEARS 225 DROP/15 ML BTL BOTH EYES (08:56)
[2025-03-25] MEDS: PANTOPRAZOLE 40 MG GRANPKT.DR GT (08:57)
--- NOTE | 2025-03-25 16:25 | ESPR_ITS ---
Progress Note - SubAcute DIAGNOSIS (1) Osteomyelitis: Status: Chronic (2) DVT (deep venous thrombosis): Status: Chronic (3) Chronic respiratory failure: Status: Chronic (4) Ventilator dependent: Status: Chronic (5) G tube feedings: Status: Chronic (6) Tracheostomy in place: Status: Chronic (7) Seizures: Status: Chronic (8) Adrenal insufficiency: Status: Chronic (9) Ureteric obstruction: Status: Chronic OBJECTIVE Most recent vital signs: Last Vital Signs Temp 97.5 F 03/25/25 12:00 Pulse 92 03/25/25 12:45 Resp 20 03/25/25 12:45 BP 96/63 03/25/25 12:00 Pulse Ox 99 03/25/25 12:45 O2 Del Method Mechanical Ventilation 03/25/25 06:00 FiO2 40 03/25/25 12:45 Neurological:: awake (no cognizant response) Speech:: none Respiratory:: lungs clear (ventilator dependent) Cardiovascular: RRR Abdomen: soft Extremities:: deformities (spastic contractures) Decubitus:: unchanged (osteomyelitis) Tracheostomy:: to ventilator Feeding per:: G tube Complaints:: none ASSESSMENT & PLAN Assessment: 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 Recently treated in Acute care for septic shock from chronic osteomyelitis and pneumonia and now with a central line for continued antibiotics is admitted to [facility] for shelter treatment. Spiked fever, work up under way. fever abated over a day. close follow up, if spikes again will transfer to acute care for treatment. Nephrostomy tube drainage noticed to be decreased while suprapubic catheter draining well. Requested a KUB to confirm placement of Nephrostomy tube Plan: Current tratment reviewed including Ventilator settings and continued
--- NOTE | 2025-03-25 16:26 | XR_ITS ---
Examination: Abdomen AP single view Technique: AP portable supine abdomen, single view Exam date and time: March 25, 2025 1712 hours INDICATIONS: Nephrostomy tube not draining FINDINGS: Nephrostomy tube appears in satisfactory position Large amounts of stool in the colon Gastrostomy tube overlies the stomach air bubble IMPRESSION: Consider CT scan abdomen without contrast follow-up to best assess position of the nephrostomy tube
--- NOTE | 2025-03-25 17:07 | PC.NURSE ---
Resident's nephrostomy tube had only 200 ml output at NOC , and no output at this time, with draining nephrostomy tube. No s/s of pain or discomfort. Called Dr Silverio and made aware, with order received to do KUB and refer to urologist of the result.
--- NOTE | 2025-03-25 23:49 | PC.NURSE ---
DR. WALLACE MADE AWARE OF ABD XRAY RESULTS @ 2100. NEPHROSTOMY TUBE DRAINING, 150ml AT THIS TIME. ORDERED NO NEED TO CONSULT UROLOGIST AT THIS TIME.
[2025-03-26] VITALS (8 sets, daily range): BP systolic 92–106; BP diastolic 60–70; PULSE 94–120; RESP 16–30; TEMP 36.6–37; O2SAT 98–99
[2025-03-26] MEDS: IPRATROPIUM/ALBUTEROL 3 ML AMPUL.NEB INH ×4 (00:41→18:39)
[2025-03-26] MEDS: BACLOFEN 10 MG TABLET 5 MG GT ×3 (05:17→21:00)
[2025-03-26] MEDS: METOCLOPRAMIDE 5 MG TABLET GT ×3 (05:19→21:00)
[2025-03-26] MEDS: MIDODRINE 10 MG TABLET GT ×3 (05:19→21:00)
[2025-03-26] MEDS: NON-FORMULARY *SEE COMMENTS* 1 EA EA 250 EA GT ×3 (05:23→21:00)
[2025-03-26] MEDS: PHENYTOIN 600 EA GT ×2 (09:01→21:00)
[2025-03-26] MEDS: PANTOPRAZOLE 40 MG GRANPKT.DR GT (09:02)
[2025-03-26] MEDS: MULTIVITAMIN W MINERALS 1 EACH TABLET GT (09:02)
[2025-03-26] MEDS: FLUDROCORTISONE 0.1 MG GT (09:02)
[2025-03-26] MEDS: DEX/HYPRO/GLY ARTIFICAL TEARS 225 DROP/15 ML BTL BOTH EYES (09:02)
--- NOTE | 2025-03-26 14:00 | PC.SS ---
Resident remains on ventilator with trach in place. He is awake unable to make needs known, his decision maker is his aunt. Resident will remain in current care as he has no changes in care or condition, he will continue to have all subacute care needs met by staff. This SSD will continue to make daily contact with resident and will monitor for changes in mood and behavior
[2025-03-26] MEDS: ACETAMINOPHEN 325 MG TABLET GT (21:01)
[2025-03-27] VITALS (7 sets, daily range): BP systolic 99–116; BP diastolic 64–74; PULSE 71–108; RESP 16–30; TEMP 36.6–36.9; O2SAT 95–99
[2025-03-27] MEDS: IPRATROPIUM/ALBUTEROL 3 ML AMPUL.NEB INH ×4 (00:53→19:35)
[2025-03-27] MEDS: METOCLOPRAMIDE 5 MG TABLET GT ×3 (05:22→21:40)
[2025-03-27] MEDS: NON-FORMULARY *SEE COMMENTS* 1 EA EA 250 EA GT ×3 (05:22→21:41)
[2025-03-27] MEDS: ACETAMINOPHEN 325 MG TABLET GT (05:22)
[2025-03-27] MEDS: BACLOFEN 10 MG TABLET 5 MG GT ×3 (05:22→21:38)
[2025-03-27] MEDS: MIDODRINE 10 MG TABLET GT ×3 (05:22→21:40)
[2025-03-27] MEDS: MULTIVITAMIN W MINERALS 1 EACH TABLET GT (09:28)
[2025-03-27] MEDS: PANTOPRAZOLE 40 MG GRANPKT.DR GT (09:28)
[2025-03-27] MEDS: DEX/HYPRO/GLY ARTIFICAL TEARS 225 DROP/15 ML BTL BOTH EYES (09:28)
[2025-03-27] MEDS: FLUDROCORTISONE 0.1 MG GT (09:28)
[2025-03-27] MEDS: PHENYTOIN 600 EA GT (21:46)
[2025-03-28] VITALS (9 sets, daily range): BP systolic 92–111; BP diastolic 55–78; PULSE 74–116; RESP 16–25; TEMP 36.1–37.8; O2SAT 96–100
[2025-03-28] MEDS: IPRATROPIUM/ALBUTEROL 3 ML AMPUL.NEB INH ×4 (01:18→19:45)
[2025-03-28] MEDS: BACLOFEN 10 MG TABLET 5 MG GT ×3 (05:32→21:29)
[2025-03-28] MEDS: MIDODRINE 10 MG TABLET GT ×3 (05:33→21:30)
[2025-03-28] MEDS: NON-FORMULARY *SEE COMMENTS* 1 EA EA 250 EA GT ×3 (05:33→21:31)
[2025-03-28] MEDS: METOCLOPRAMIDE 5 MG TABLET GT ×3 (05:33→21:29)
[2025-03-28] MEDS: DEX/HYPRO/GLY ARTIFICAL TEARS 225 DROP/15 ML BTL BOTH EYES (08:59)
[2025-03-28] MEDS: FLUDROCORTISONE 0.1 MG GT (09:00)
[2025-03-28] MEDS: PHENYTOIN 600 EA GT ×2 (09:00→21:33)
[2025-03-28] MEDS: MULTIVITAMIN W MINERALS 1 EACH TABLET GT (09:00)
[2025-03-28] MEDS: PANTOPRAZOLE 40 MG GRANPKT.DR GT (09:01)
[2025-03-29] VITALS (8 sets, daily range): BP systolic 95–104; BP diastolic 66–70; PULSE 76–108; RESP 16–23; TEMP 36.7–36.9; O2SAT 95–99
[2025-03-29] MEDS: IPRATROPIUM/ALBUTEROL 3 ML AMPUL.NEB INH ×4 (00:42→19:52)
[2025-03-29] MEDS: MIDODRINE 10 MG TABLET GT ×3 (05:56→21:06)
[2025-03-29] MEDS: BACLOFEN 10 MG TABLET 5 MG GT ×2 (05:56→21:06)
[2025-03-29] MEDS: METOCLOPRAMIDE 5 MG TABLET GT ×3 (05:56→21:07)
[2025-03-29] MEDS: NON-FORMULARY *SEE COMMENTS* 1 EA EA 250 EA GT ×3 (05:56→21:06)
[2025-03-29] MEDS: FLUDROCORTISONE 0.1 MG GT (08:51)
[2025-03-29] MEDS: PANTOPRAZOLE 40 MG GRANPKT.DR GT (08:51)
[2025-03-29] MEDS: PHENYTOIN 600 EA GT ×2 (08:51→21:06)
[2025-03-29] MEDS: DEX/HYPRO/GLY ARTIFICAL TEARS 225 DROP/15 ML BTL BOTH EYES (08:51)
[2025-03-29] MEDS: MULTIVITAMIN W MINERALS 1 EACH TABLET GT (08:51)
--- NOTE | 2025-03-29 13:25 | PD.SAPROG ---
Progress Note - SubAcute DIAGNOSIS (1) Osteomyelitis: Status: Chronic (2) DVT (deep venous thrombosis): Status: Chronic (3) Chronic respiratory failure: Status: Chronic (4) Ventilator dependent: Status: Chronic (5) G tube feedings: Status: Chronic (6) Tracheostomy in place: Status: Chronic (7) Seizures: Status: Chronic (8) Adrenal insufficiency: Status: Chronic (9) Ureteric obstruction: Status: Chronic OBJECTIVE Most recent vital signs: Last Vital Signs Temp 98.9 F 04/02/25 17:45 Pulse 87 04/02/25 18:48 Resp 16 04/02/25 18:48 BP 99/60 04/02/25 17:45 Pulse Ox 99 04/02/25 18:48 O2 Del Method Mechanical Ventilation 04/02/25 17:45 FiO2 40 04/02/25 18:48 Neurological:: awake (no cognizant response) Speech:: none Respiratory:: lungs clear (ventilator dependent) Cardiovascular: RRR Abdomen: soft Extremities:: deformities (spastic contractures) Decubitus:: unchanged (osteomyelitis) Tracheostomy:: to ventilator Feeding per:: G tube Complaints:: none ASSESSMENT & PLAN Assessment: 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 Recently treated in Acute care for septic shock from chronic osteomyelitis and pneumonia and now with a central line for continued antibiotics is admitted to [facility] for nursing home treatment. Spiked fever, work up under way. fever abated over a day. close follow up, if spikes again will transfer to acute care for treatment. Nephrostomy tube drainage noticed to be decreased while suprapubic catheter draining well. Requested a KUB to confirm placement of Nephrostomy tube Plan: Current tratment reviewed including Ventilator settings and continued
[2025-03-30] VITALS (8 sets, daily range): BP systolic 91–116; BP diastolic 60–78; PULSE 90–111; RESP 16–24; TEMP 37–38.2; O2SAT 95–99
[2025-03-30] MEDS: IPRATROPIUM/ALBUTEROL 3 ML AMPUL.NEB INH ×4 (00:46→19:32)
[2025-03-30] MEDS: MIDODRINE 10 MG TABLET GT ×3 (05:31→21:10)
[2025-03-30] MEDS: BACLOFEN 10 MG TABLET 5 MG GT ×3 (05:32→21:11)
[2025-03-30] MEDS: NON-FORMULARY *SEE COMMENTS* 1 EA EA 250 EA GT ×3 (05:32→21:11)
[2025-03-30] MEDS: METOCLOPRAMIDE 5 MG TABLET GT ×3 (05:32→21:11)
[2025-03-30] MEDS: PANTOPRAZOLE 40 MG GRANPKT.DR GT (09:45)
[2025-03-30] MEDS: PHENYTOIN 600 EA GT ×2 (09:52→21:11)
[2025-03-30] MEDS: DEX/HYPRO/GLY ARTIFICAL TEARS 225 DROP/15 ML BTL BOTH EYES (09:52)
[2025-03-30] MEDS: FLUDROCORTISONE 0.1 MG GT (09:52)
[2025-03-30] MEDS: MULTIVITAMIN W MINERALS 1 EACH TABLET GT (09:55)
[2025-03-30] MEDS: ACETAMINOPHEN 325 MG TABLET 650 MG GT (16:30)
[2025-03-30 19:21] LABS: COVID-19 Antigen (In-House) Negative (Negative)
[2025-03-30 19:23] LABS: Collection Type, Urine Catheter
[2025-03-30 19:27] LABS: Influenza A Ag Negative; Influenza B Ag Negative
[2025-03-30 19:30] LABS: Basophils # (Auto) 0.2 Thou/mm3 (0.0-0.2); Basophils % (Auto) 1 % (0-2.5); Eosinophils # (Auto) 3.7 Thou/mm3 (0.0-0.5); Eosinophils % (Auto) 22 % (0-10); Hematocrit 29.4 % (41.0-53.0); Immature Granulocytes Auto 0.08 Thou/mm3 (0.00-0.00); Lymphocytes # (Auto) 1.8 Thou/mm3 (1.0-4.8); Lymphocytes % (Auto) 11 % (10-50); Mean Corpuscular HGB Conc 29.6 g/dl (31.0-37.0); Mean Corpuscular Hemoglobin 28.5 pg (25.0-35.0); Mean Corpuscular Volume 96 fL (80-100); Monocytes # (Auto) 1.1 Thou/mm3 (0.0-0.8); Monocytes % (Auto) 7 % (0-12); Neutrophils # (Auto) 9.8 Thou/mm3 (1.8-7.7); Neutrophils % (Auto) 59 % (37-80); Nucleated Red Blood Cell # 0.00 Thou/mm3 (0.00-0.00); Nucleated Red Blood Cell % 0 /100 WBC (0); Platelet Count 348 Thou/mm3 (140-440); RDW Standard Deviation 53.9 fL (35.1-43.9); Red Blood Count 3.05 Miln/mm3 (4.50-5.90); White Blood Count 16.7 Thou/mm3 (3.8-10.6)
[2025-03-30 19:34] LABS: Hemoglobin 8.7 g/dL (13.5-16.0)
[2025-03-30 19:45] LABS: Bacteria,Urine 1+; Bilirubin,Urine Negative (Negative); Blood,Urine Negative (Negative); Clarity,Urine Turbid (Clear/Hazy); Color,Urine Yellow (Lt Yel-Yel); Glucose, Urine Negative (Negative); Ketones,Urine Negative (Negative); Leukocyte Esterase,Urine Positive (Negative); Nitrite,Urine Positive (Negative); PH,Urine 8.5 (5.0-7.0); Protein,Urine 2+ (Neg - Trace); RBC,Urine 2 /hpf (0-3); Specific Gravity,Urine 1.018 (1.001-1.035); Squamous Epithelial Cell,Urine < 1 /hpf (0-5); Triple Phosphate Crystal,Urine 1+; Urobilinogen,Urine Negative mg/dL (0.0-1.0); WBC,Urine 6 /hpf (0-5)
[2025-03-30 19:46] LABS: Culture Indicated,Urine Yes
[2025-03-30 19:56] LABS: Procalcitonin 0.60 ng/ml (0.0-0.49)
--- NOTE | 2025-03-30 20:34 | PC.NURSE ---
Labs results are in, made aware, no new orders at this time, notified if any changes occur, pending all cultures.
--- NOTE | 2025-03-30 21:12 | PC.NURSE ---
katherine scheduled for 2100 given.
[2025-03-31] VITALS (8 sets, daily range): BP systolic 96–113; BP diastolic 62–69; PULSE 87–115; RESP 15–28; TEMP 35.9–37.1; O2SAT 97–100
[2025-03-31] MEDS: IPRATROPIUM/ALBUTEROL 3 ML AMPUL.NEB INH ×4 (00:46→16:52)
[2025-03-31] MEDS: MIDODRINE 10 MG TABLET GT ×3 (05:34→21:03)
[2025-03-31] MEDS: NON-FORMULARY *SEE COMMENTS* 1 EA EA 250 EA GT ×3 (05:35→21:03)
[2025-03-31] MEDS: BACLOFEN 10 MG TABLET 5 MG GT ×3 (05:35→21:03)
[2025-03-31] MEDS: METOCLOPRAMIDE 5 MG TABLET GT ×3 (05:35→21:03)
[2025-03-31] MEDS: FLUDROCORTISONE 0.1 MG GT (09:59)
[2025-03-31] MEDS: DEX/HYPRO/GLY ARTIFICAL TEARS 225 DROP/15 ML BTL BOTH EYES (09:59)
[2025-03-31] MEDS: PHENYTOIN 600 EA GT ×2 (09:59→20:48)
[2025-03-31] MEDS: MULTIVITAMIN W MINERALS 1 EACH TABLET GT (10:01)
[2025-03-31] MEDS: PANTOPRAZOLE 40 MG GRANPKT.DR GT (10:01)
[2025-04-01] VITALS (8 sets, daily range): BP systolic 91–98; BP diastolic 52–72; PULSE 79–112; RESP 15–23; TEMP 36.3–37.2; O2SAT 97–99
[2025-04-01] MEDS: IPRATROPIUM/ALBUTEROL 3 ML AMPUL.NEB INH ×4 (01:01→19:21)
[2025-04-01] MEDS: BACLOFEN 10 MG TABLET 5 MG GT ×3 (05:39→21:04)
[2025-04-01] MEDS: METOCLOPRAMIDE 5 MG TABLET GT ×3 (05:40→21:04)
[2025-04-01] MEDS: MIDODRINE 10 MG TABLET GT ×3 (05:40→21:04)
[2025-04-01] MEDS: DEX/HYPRO/GLY ARTIFICAL TEARS 225 DROP/15 ML BTL BOTH EYES (08:00)
[2025-04-01] MEDS: PHENYTOIN 600 EA GT ×2 (08:00→20:58)
[2025-04-01] MEDS: MULTIVITAMIN W MINERALS 1 EACH TABLET GT (08:01)
[2025-04-01] MEDS: PANTOPRAZOLE 40 MG GRANPKT.DR GT (08:01)
[2025-04-01] MEDS: FLUDROCORTISONE 0.1 MG GT (08:01)
[2025-04-01] MEDS: CARBAMIDE PEROXIDE OTIC SOL 15 ML BTL 5 DROP BOTH EARS ×2 (09:44→20:57)
[2025-04-01] MEDS: NON-FORMULARY *SEE COMMENTS* 1 EA EA 250 EA GT ×2 (13:47→21:04)
[2025-04-01] MEDS: ACETAMINOPHEN 325 MG TABLET GT (15:35)
--- NOTE | 2025-04-01 17:43 | PC.NURSE ---
Reviewed nephrostomy case with MD as of resident not putting out any urine in the nephrostomy bag. He stated as longest as resident is putting out urine out of the suprapubic resident should be fine. also stated he will ask urologist regarding this case. No further orders given at this time. just continuee to monitor. resident appears without distress at this time.
[2025-04-02] VITALS (7 sets, daily range): BP systolic 94–101; BP diastolic 56–60; PULSE 80–101; RESP 16–20; TEMP 36.5–37.2; O2SAT 97–100
[2025-04-02] MEDS: IPRATROPIUM/ALBUTEROL 3 ML AMPUL.NEB INH ×4 (00:34→18:48)
[2025-04-02] MEDS: NON-FORMULARY *SEE COMMENTS* 1 EA EA 250 EA GT ×3 (05:31→21:01)
[2025-04-02] MEDS: MIDODRINE 10 MG TABLET GT ×3 (05:31→21:01)
[2025-04-02] MEDS: METOCLOPRAMIDE 5 MG TABLET GT ×3 (05:31→21:01)
[2025-04-02] MEDS: BACLOFEN 10 MG TABLET 5 MG GT ×3 (05:31→21:02)
[2025-04-02] MEDS: DEX/HYPRO/GLY ARTIFICAL TEARS 225 DROP/15 ML BTL BOTH EYES (09:35)
[2025-04-02] MEDS: CARBAMIDE PEROXIDE OTIC SOL 15 ML BTL 5 DROP BOTH EARS ×2 (09:35→21:00)
[2025-04-02] MEDS: FLUDROCORTISONE 0.1 MG GT (09:38)
[2025-04-02] MEDS: PHENYTOIN 600 EA GT ×2 (09:38→21:01)
[2025-04-02] MEDS: PANTOPRAZOLE 40 MG GRANPKT.DR GT (09:39)
[2025-04-02] MEDS: MULTIVITAMIN W MINERALS 1 EACH TABLET GT (09:39)
--- NOTE | 2025-04-02 16:37 | PC.NURSE ---
Notified Dr Silverio about resident's sputum and urine c & s results, remains afebrile. Order received to repeat CBC to follow up on WBC.
[2025-04-02 17:44] LABS: Basophils # (Auto) 0.1 Thou/mm3 (0.0-0.2); Basophils % (Auto) 1 % (0-2.5); Eosinophils # (Auto) 3.3 Thou/mm3 (0.0-0.5); Eosinophils % (Auto) 23 % (0-10); Hematocrit 28.5 % (41.0-53.0); Immature Granulocytes Auto 0.08 Thou/mm3 (0.00-0.00); Lymphocytes # (Auto) 1.3 Thou/mm3 (1.0-4.8); Lymphocytes % (Auto) 9 % (10-50); Mean Corpuscular HGB Conc 30.5 g/dl (31.0-37.0); Mean Corpuscular Hemoglobin 28.4 pg (25.0-35.0); Mean Corpuscular Volume 93 fL (80-100); Monocytes # (Auto) 0.9 Thou/mm3 (0.0-0.8); Monocytes % (Auto) 7 % (0-12); Neutrophils # (Auto) 8.5 Thou/mm3 (1.8-7.7); Neutrophils % (Auto) 60 % (37-80); Nucleated Red Blood Cell # 0.00 Thou/mm3 (0.00-0.00); Nucleated Red Blood Cell % 0 /100 WBC (0); Platelet Count 317 Thou/mm3 (140-440); RDW Standard Deviation 52.3 fL (35.1-43.9); Red Blood Count 3.06 Miln/mm3 (4.50-5.90); White Blood Count 14.3 Thou/mm3 (3.8-10.6)
[2025-04-02 18:15] LABS: Hemoglobin 8.7 g/dL (13.5-16.0)
--- NOTE | 2025-04-02 18:32 | PC.NURSE ---
Dr Silverio made aware of the CBC result, remains afebrile and stable. No new orders made at this time.
--- NOTE | 2025-04-02 21:37 | ESPR_ITS ---
Progress Note - SubAcute DIAGNOSIS (1) Osteomyelitis: Status: Chronic (2) DVT (deep venous thrombosis): Status: Chronic (3) Chronic respiratory failure: Status: Chronic (4) Ventilator dependent: Status: Chronic (5) G tube feedings: Status: Chronic (6) Tracheostomy in place: Status: Chronic (7) Seizures: Status: Chronic (8) Adrenal insufficiency: Status: Chronic (9) Ureteric obstruction: Status: Chronic OBJECTIVE Most recent vital signs: Last Vital Signs Temp 98.9 F 04/02/25 17:45 Pulse 87 04/02/25 18:48 Resp 16 04/02/25 18:48 BP 99/60 04/02/25 17:45 Pulse Ox 99 04/02/25 18:48 O2 Del Method Mechanical Ventilation 04/02/25 17:45 FiO2 40 04/02/25 18:48 Neurological:: awake (no cognizant response) Speech:: none Respiratory:: lungs clear (ventilator dependent) Cardiovascular: RRR Abdomen: soft Extremities:: deformities (spastic contractures) Decubitus:: unchanged (osteomyelitis) Tracheostomy:: to ventilator Feeding per:: G tube Complaints:: none ASSESSMENT & PLAN Assessment: 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 Recently treated in Acute care for septic shock from chronic osteomyelitis and pneumonia and now with a central line for continued antibiotics is admitted to [facility] for retirement treatment. Spiked fever, work up under way. fever abated over a day. close follow up, if spikes again will transfer to acute care for treatment. Nephrostomy tube drainage noticed to be decreased while suprapubic catheter draining well. Requested a KUB to confirm placement of Nephrostomy tube Plan: Current tratment reviewed including Ventilator settings and continued
[2025-04-03] VITALS (7 sets, daily range): BP systolic 96–115; BP diastolic 63–79; PULSE 80–101; RESP 16–24; TEMP 36.8–37.4; O2SAT 97–99
[2025-04-03] MEDS: IPRATROPIUM/ALBUTEROL 3 ML AMPUL.NEB INH ×4 (00:39→18:37)
[2025-04-03] MEDS: ACETAMINOPHEN 325 MG TABLET GT ×2 (03:30→11:00)
[2025-04-03] MEDS: BACLOFEN 10 MG TABLET 5 MG GT ×3 (05:50→21:10)
[2025-04-03] MEDS: NON-FORMULARY *SEE COMMENTS* 1 EA EA 250 EA GT ×3 (05:50→21:09)
[2025-04-03] MEDS: MIDODRINE 10 MG TABLET GT ×3 (05:50→21:10)
[2025-04-03] MEDS: METOCLOPRAMIDE 5 MG TABLET GT ×3 (05:50→21:10)
[2025-04-03] MEDS: PHENYTOIN 600 EA GT ×2 (08:41→21:10)
[2025-04-03] MEDS: CARBAMIDE PEROXIDE OTIC SOL 15 ML BTL 5 DROP BOTH EARS ×2 (08:41→21:45)
[2025-04-03] MEDS: FLUDROCORTISONE 0.1 MG GT (08:41)
[2025-04-03] MEDS: DEX/HYPRO/GLY ARTIFICAL TEARS 225 DROP/15 ML BTL BOTH EYES (08:41)
[2025-04-03] MEDS: MULTIVITAMIN W MINERALS 1 EACH TABLET GT (08:42)
[2025-04-03] MEDS: PANTOPRAZOLE 40 MG GRANPKT.DR GT (08:42)
[2025-04-04] VITALS (8 sets, daily range): BP systolic 90–105; BP diastolic 54–69; PULSE 67–102; RESP 16–29; TEMP 36.6–37; O2SAT 97–99
[2025-04-04] MEDS: IPRATROPIUM/ALBUTEROL 3 ML AMPUL.NEB INH ×4 (01:13→19:22)
[2025-04-04] MEDS: BACLOFEN 10 MG TABLET 5 MG GT ×3 (05:18→21:24)
[2025-04-04] MEDS: METOCLOPRAMIDE 5 MG TABLET GT ×3 (05:19→21:24)
[2025-04-04] MEDS: MIDODRINE 10 MG TABLET GT ×3 (05:19→21:23)
[2025-04-04] MEDS: PHENYTOIN 600 EA GT ×2 (09:02→21:24)
[2025-04-04] MEDS: DEX/HYPRO/GLY ARTIFICAL TEARS 225 DROP/15 ML BTL BOTH EYES (09:02)
[2025-04-04] MEDS: FLUDROCORTISONE 0.1 MG GT (09:02)
[2025-04-04] MEDS: MULTIVITAMIN W MINERALS 1 EACH TABLET GT (09:03)
[2025-04-04] MEDS: PANTOPRAZOLE 40 MG GRANPKT.DR GT (09:04)
[2025-04-05] VITALS (9 sets, daily range): BP systolic 97–102; BP diastolic 63–68; PULSE 74–96; RESP 16–28; TEMP 36.2–37; O2SAT 95–100
[2025-04-05] MEDS: IPRATROPIUM/ALBUTEROL 3 ML AMPUL.NEB INH ×4 (00:57→19:14)
[2025-04-05] MEDS: BACLOFEN 10 MG TABLET 5 MG GT ×3 (06:04→21:00)
[2025-04-05] MEDS: METOCLOPRAMIDE 5 MG TABLET GT ×3 (06:05→21:00)
[2025-04-05] MEDS: MIDODRINE 10 MG TABLET GT ×3 (06:05→21:01)
[2025-04-05] MEDS: MULTIVITAMIN W MINERALS 1 EACH TABLET GT (09:20)
[2025-04-05] MEDS: PANTOPRAZOLE 40 MG GRANPKT.DR GT (09:20)
[2025-04-05] MEDS: PHENYTOIN 600 EA GT ×2 (09:20→20:53)
[2025-04-05] MEDS: FLUDROCORTISONE 0.1 MG GT (09:20)
[2025-04-05] MEDS: DEX/HYPRO/GLY ARTIFICAL TEARS 225 DROP/15 ML BTL BOTH EYES (09:20)
--- NOTE | 2025-04-05 10:20 | PC.NURSE ---
Resident with an order for consult with Dr Eubanks. Received a call from Dud[facility] at [facility] and faxed resident's face sheet and [facility] as requested.
[2025-04-05] MEDS: ACETAMINOPHEN 325 MG TABLET GT (20:55)
[2025-04-06] VITALS (8 sets, daily range): BP systolic 94–116; BP diastolic 56–80; PULSE 82–96; RESP 16–24; TEMP 36.6–37.2; O2SAT 94–99; BMI 21.9
[2025-04-06] MEDS: IPRATROPIUM/ALBUTEROL 3 ML AMPUL.NEB INH ×4 (01:04→18:59)
[2025-04-06] MEDS: MIDODRINE 10 MG TABLET GT ×3 (05:50→21:00)
[2025-04-06] MEDS: METOCLOPRAMIDE 5 MG TABLET GT ×3 (05:50→21:00)
[2025-04-06] MEDS: BACLOFEN 10 MG TABLET 5 MG GT ×3 (05:50→21:00)
[2025-04-06] MEDS: MAGNESIUM HYDROXIDE 30 ML ORAL SUSP ML GT (08:46)
[2025-04-06] MEDS: FLUDROCORTISONE 0.1 MG GT (08:47)
[2025-04-06] MEDS: PHENYTOIN 600 EA GT ×2 (08:47→20:53)
[2025-04-06] MEDS: DEX/HYPRO/GLY ARTIFICAL TEARS 225 DROP/15 ML BTL BOTH EYES (08:47)
[2025-04-06] MEDS: PANTOPRAZOLE 40 MG GRANPKT.DR GT (08:47)
[2025-04-06] MEDS: MULTIVITAMIN W MINERALS 1 EACH TABLET GT (08:47)
--- NOTE | 2025-04-06 21:03 | PD.SAPROG ---
Progress Note - SubAcute DIAGNOSIS (1) Osteomyelitis: Status: Chronic (2) DVT (deep venous thrombosis): Status: Chronic (3) Chronic respiratory failure: Status: Chronic (4) Ventilator dependent: Status: Chronic (5) G tube feedings: Status: Chronic (6) Tracheostomy in place: Status: Chronic (7) Seizures: Status: Chronic (8) Adrenal insufficiency: Status: Chronic (9) Ureteric obstruction: Status: Chronic OBJECTIVE Most recent vital signs: Last Vital Signs Temp 98.6 F 04/06/25 17:45 Pulse 95 04/06/25 18:49 Resp 18 04/06/25 18:49 BP 116/80 04/06/25 17:45 Pulse Ox 99 04/06/25 18:49 O2 Del Method Mechanical Ventilation 04/06/25 17:45 FiO2 40 04/06/25 18:49 Neurological:: awake (no cognizant response) Speech:: none Respiratory:: lungs clear (ventilator dependent) Cardiovascular: RRR Abdomen: soft Extremities:: deformities (spastic contractures) Decubitus:: unchanged (osteomyelitis) Tracheostomy:: to ventilator Feeding per:: G tube Complaints:: none ASSESSMENT & PLAN Assessment: 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 Spiked fever, work up under way. fever abated over a day. close follow up, if spikes again will transfer to acute care for treatment. Nephrostomy tube drainage noticed to be decreased while suprapubic catheter draining well. Requested a KUB to confirm placement of Nephrostomy tube. VSS Plan: Current tratment reviewed including Ventilator settings and continued
[2025-04-07] VITALS (8 sets, daily range): BP systolic 93–110; BP diastolic 58–74; PULSE 83–96; RESP 16–26; TEMP 36.3–36.8; O2SAT 97–100
[2025-04-07] MEDS: IPRATROPIUM/ALBUTEROL 3 ML AMPUL.NEB INH ×4 (00:11→19:11)
[2025-04-07] MEDS: MIDODRINE 10 MG TABLET GT ×3 (05:09→21:02)
[2025-04-07] MEDS: BACLOFEN 10 MG TABLET 5 MG GT ×3 (05:09→21:02)
[2025-04-07] MEDS: METOCLOPRAMIDE 5 MG TABLET GT ×3 (05:09→21:02)
[2025-04-07] MEDS: DEX/HYPRO/GLY ARTIFICAL TEARS 225 DROP/15 ML BTL BOTH EYES (08:47)
[2025-04-07] MEDS: FLUDROCORTISONE 0.1 MG GT (08:48)
[2025-04-07] MEDS: PANTOPRAZOLE 40 MG GRANPKT.DR GT (08:48)
[2025-04-07] MEDS: PHENYTOIN 600 EA GT ×2 (08:48→21:02)
[2025-04-07] MEDS: MULTIVITAMIN W MINERALS 1 EACH TABLET GT (08:48)
--- NOTE | 2025-04-07 13:11 | XR_ITS ---
Examination: Abdomen AP single view Technique: AP portable supine abdomen, single view Exam date and time: April 07, 2025 1323 hours INDICATIONS: Status post nephrostomy tube placement FINDINGS: Right nephrostomy tube satisfactory position Gastrostomy tube overlies the stomach Abundant air and stool throughout the colon IMPRESSION: Right gastrostomy tube satisfactory position
--- NOTE | 2025-04-07 13:11 | PC.LAC ---
Dr. Sanon came and check resident nephrostomy tube, and order KUB to check for placement, order noted and carried out, we will continue to monitor.
[2025-04-07] MEDS: NON-FORMULARY *SEE COMMENTS* 1 EA EA 250 EA GT (21:01)
[2025-04-08] VITALS (9 sets, daily range): BP systolic 87–111; BP diastolic 53–73; PULSE 89–102; RESP 16–26; TEMP 36.4–37.1; O2SAT 96–100
[2025-04-08] MEDS: IPRATROPIUM/ALBUTEROL 3 ML AMPUL.NEB INH ×4 (00:17→16:41)
[2025-04-08] MEDS: NON-FORMULARY *SEE COMMENTS* 1 EA EA 250 EA GT ×3 (05:40→22:17)
[2025-04-08] MEDS: MIDODRINE 10 MG TABLET GT ×3 (06:14→20:55)
[2025-04-08] MEDS: BACLOFEN 10 MG TABLET 5 MG GT ×3 (06:14→20:54)
[2025-04-08] MEDS: METOCLOPRAMIDE 5 MG TABLET GT ×3 (06:14→20:55)
[2025-04-08] MEDS: PHENYTOIN 600 EA GT ×2 (09:36→20:35)
[2025-04-08] MEDS: DEX/HYPRO/GLY ARTIFICAL TEARS 225 DROP/15 ML BTL BOTH EYES (09:36)
[2025-04-08] MEDS: FLUDROCORTISONE 0.1 MG GT (09:37)
[2025-04-08] MEDS: MULTIVITAMIN W MINERALS 1 EACH TABLET GT (09:39)
--- NOTE | 2025-04-08 13:48 | PC.NURSE ---
Dr. Sanon made aware the result of KUB ( right nephrostomy tube satisfactory position ), no new order received at this time.
[2025-04-09] VITALS (11 sets, daily range): BP systolic 99–118; BP diastolic 57–71; PULSE 76–94; RESP 16–27; TEMP 36.6–36.8; O2SAT 98–100
[2025-04-09] MEDS: IPRATROPIUM/ALBUTEROL 3 ML AMPUL.NEB INH ×4 (00:15→19:02)
[2025-04-09] MEDS: METOCLOPRAMIDE 5 MG TABLET GT ×3 (05:37→21:33)
[2025-04-09] MEDS: BACLOFEN 10 MG TABLET 5 MG GT ×3 (05:37→21:33)
[2025-04-09] MEDS: MIDODRINE 10 MG TABLET GT ×3 (05:37→21:33)
[2025-04-09] MEDS: NON-FORMULARY *SEE COMMENTS* 1 EA EA 250 EA GT ×3 (05:38→21:34)
[2025-04-09] MEDS: DEX/HYPRO/GLY ARTIFICAL TEARS 225 DROP/15 ML BTL BOTH EYES (08:17)
[2025-04-09] MEDS: PHENYTOIN 600 EA GT ×2 (08:18→20:33)
[2025-04-09] MEDS: FLUDROCORTISONE 0.1 MG GT (08:18)
[2025-04-09] MEDS: MULTIVITAMIN W MINERALS 1 EACH TABLET GT (08:23)
[2025-04-09] MEDS: PANTOPRAZOLE 40 MG GRANPKT.DR GT (08:24)
--- NOTE | 2025-04-09 09:44 | UCCONSULT_ITS ---
RE: KETTY BATES : 1985 DATE OF CONSULTATION: 04/07/2025 ESTABLISHED DIAGNOSES: 1. J96.10, chronic respiratory failure. 2. M86.9, osteomyelitis. 3. I82.409, acute embolism and thrombosis. 4. Z99.11, dependence on respiratory ventilator. 5. Z93.1, gastrostomy status. 6. Z93.0, tracheostomy. 7. R56.9, unspecified convulsions. HISTORY OF PRESENT ILLNESS: This is a 39-year-old gentleman. 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 Right nephrostomy tube due to right hydronephrosis and bilateral upper extremity DVT. The patient is seen and chart is reviewed. Consult is dictated. The patient is nonverbal. All the history is available on the patient's chart. This is a 39-year-old gentleman. He had hydronephrosis. The right side had a placement of percutaneous nephrostomy tube. Subsequently, the tube is not draining. PHYSICAL EXAMINATION: Vital Signs: His temperature is 99.2, pulse 105, respirations 23, pulse oximetry 100%. The patient is lying in the bed, not in acute distress. I checked his nephrostomy tube. Nephrostomy tube is almost out. I tried to irrigate it. I was unable to because it looks like in the renal pelvis. RECOMMENDATIONS: 1. KUB to see if the nephrostomy tube is still in place. 2. If it is not in place, then he is going to need a CAT scan. If there is hydronephrosis, he may need replacement of nephrostomy tube. Otherwise, he has neurogenic bladder and he has suprapubic cystostomy tube and some of the hydronephrosis can be explained on the basis of vesicoureteral reflux. Dr. Silverio, thank you very kindly for your consultation and I will continue to follow the patient with you. DT: 13:50:25 TT: 18:38:00 Ref: [id number] - TID: [id number]
[2025-04-10] VITALS (11 sets, daily range): BP systolic 92–109; BP diastolic 58–72; PULSE 75–98; RESP 16–28; TEMP 36.5–36.9; O2SAT 95–99
[2025-04-10] MEDS: IPRATROPIUM/ALBUTEROL 3 ML AMPUL.NEB INH ×4 (00:31→19:23)
[2025-04-10] MEDS: METOCLOPRAMIDE 5 MG TABLET GT ×3 (05:16→21:15)
[2025-04-10] MEDS: BACLOFEN 10 MG TABLET 5 MG GT ×3 (05:16→21:15)
[2025-04-10] MEDS: MIDODRINE 10 MG TABLET GT ×2 (05:16→21:15)
[2025-04-10] MEDS: NON-FORMULARY *SEE COMMENTS* 1 EA EA 250 EA GT ×2 (05:16→21:15)
[2025-04-10] MEDS: DEX/HYPRO/GLY ARTIFICAL TEARS 225 DROP/15 ML BTL BOTH EYES (09:59)
[2025-04-10] MEDS: PHENYTOIN 600 EA GT ×2 (10:01→21:15)
[2025-04-10] MEDS: FLUDROCORTISONE 0.1 MG GT (10:01)
[2025-04-10] MEDS: MULTIVITAMIN W MINERALS 1 EACH TABLET GT (10:04)
[2025-04-10] MEDS: PANTOPRAZOLE 40 MG GRANPKT.DR GT (10:11)
--- NOTE | 2025-04-10 10:18 | PC.NURSE ---
Late entry for 04/09/25. Nurse Becca reported resident decreased responsiveness. Assessed resident vital signs, a febrile was not in apparent respiratory distress, adequate urine output noted, no indication of acute illness. slower responsiveness noted noted blinked his eyes once. Also resident's grandmother stated she noticed pt less responsive. Notified MD. order for a neurological consult with Dr. Buenrostro (Neurologist). Carried out order. Left message to Dr. Buenrostro on 04/09/25 at 1367. Will continue to monitor.
--- NOTE | 2025-04-10 14:30 | ESPR_ITS ---
Progress Note - SubAcute DIAGNOSIS (1) Osteomyelitis: Status: Chronic (2) DVT (deep venous thrombosis): Status: Chronic (3) Chronic respiratory failure: Status: Chronic (4) Ventilator dependent: Status: Chronic (5) G tube feedings: Status: Chronic (6) Tracheostomy in place: Status: Chronic (7) Seizures: Status: Chronic (8) Adrenal insufficiency: Status: Chronic (9) Ureteric obstruction: Status: Chronic OBJECTIVE Most recent vital signs: Last Vital Signs Temp 97.8 F 04/10/25 12:00 Pulse 79 04/10/25 12:11 Resp 16 04/10/25 12:11 BP 92/58 L 04/10/25 12:00 Pulse Ox 98 04/10/25 12:11 O2 Del Method Mechanical Ventilation 04/09/25 17:43 FiO2 40 04/10/25 12:11 Neurological:: awake (no cognizant response) Speech:: none Respiratory:: lungs clear (ventilator dependent) Cardiovascular: RRR Abdomen: soft Extremities:: deformities (spastic contractures) Decubitus:: unchanged (osteomyelitis) Tracheostomy:: to ventilator Feeding per:: G tube Complaints:: none ASSESSMENT & PLAN Assessment: 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 Recently treated in Acute care for septic shock from chronic osteomyelitis and pneumonia and now with a central line for continued antibiotics is admitted to [facility] for snf treatment. Spiked fever, work up under way. fever abated over a day. close follow up, if spikes again will transfer to acute care for treatment. Nephrostomy tube drainage noticed to be decreased while suprapubic catheter draining well. Requested a KUB to confirm placement of Nephrostomy tube. VSS Plan: Current tratment reviewed including Ventilator settings and continued
[2025-04-11] VITALS (11 sets, daily range): BP systolic 95–116; BP diastolic 55–78; PULSE 67–98; RESP 16–25; TEMP 36.3–36.7; O2SAT 97–100
[2025-04-11] MEDS: IPRATROPIUM/ALBUTEROL 3 ML AMPUL.NEB INH ×4 (01:21→19:01)
[2025-04-11] MEDS: NON-FORMULARY *SEE COMMENTS* 1 EA EA 250 EA GT ×3 (05:40→21:52)
[2025-04-11] MEDS: BACLOFEN 10 MG TABLET 5 MG GT ×3 (05:45→21:52)
[2025-04-11] MEDS: METOCLOPRAMIDE 5 MG TABLET GT ×3 (05:45→21:52)
[2025-04-11] MEDS: MIDODRINE 10 MG TABLET GT ×3 (05:45→21:52)
[2025-04-11] MEDS: DEX/HYPRO/GLY ARTIFICAL TEARS 225 DROP/15 ML BTL BOTH EYES (09:04)
[2025-04-11] MEDS: PHENYTOIN 600 EA GT ×2 (09:04→20:38)
[2025-04-11] MEDS: FLUDROCORTISONE 0.1 MG GT (09:05)
[2025-04-11] MEDS: PANTOPRAZOLE 40 MG GRANPKT.DR GT (09:06)
[2025-04-11] MEDS: MULTIVITAMIN W MINERALS 1 EACH TABLET GT (09:06)
--- NOTE | 2025-04-11 14:16 | PC.NURSE ---
Reviewed information regarding to resident's Central line to rt upper chest. area on tip appears with minir redness. New order for treatment to area x7 days will review with MD on 04/20/25.
--- NOTE | 2025-04-11 18:28 | PC.NURSE ---
resident continues somewhat less alert. open eyes spontaneously. Vital signs remain stable, No respiratory distress noted. resting quietly. Family has been updated of change in in cognition. MD aware. Visual evaluation of nephrostomy site done by charge nurse. Nurses reporting surrounding area of tubing draining and foul odor. during CN assessment dressing was clear with no drainage noted. (dressing has recently been changed.) Will continue to monitoring closely. New treatment for resident's rt chest central line started today.
--- NOTE | 2025-04-11 20:12 | PC.NURSE ---
New order obtain from to culture drainage from nephrostomy tube site due to drainage and foul order.
[2025-04-12] VITALS (11 sets, daily range): BP systolic 88–110; BP diastolic 57–68; PULSE 57–99; RESP 16–27; TEMP 36.2–36.6; O2SAT 95–99
[2025-04-12] MEDS: IPRATROPIUM/ALBUTEROL 3 ML AMPUL.NEB INH ×4 (00:42→19:24)
[2025-04-12] MEDS: NON-FORMULARY *SEE COMMENTS* 1 EA EA 250 EA GT ×3 (05:18→21:00)
[2025-04-12] MEDS: MIDODRINE 10 MG TABLET GT ×3 (05:19→21:00)
[2025-04-12] MEDS: METOCLOPRAMIDE 5 MG TABLET GT ×3 (05:19→21:00)
[2025-04-12] MEDS: BACLOFEN 10 MG TABLET 5 MG GT ×3 (05:19→21:00)
[2025-04-12] MEDS: FLUDROCORTISONE 0.1 MG GT (09:59)
[2025-04-12] MEDS: PANTOPRAZOLE 40 MG GRANPKT.DR GT (09:59)
[2025-04-12] MEDS: MULTIVITAMIN W MINERALS 1 EACH TABLET GT (09:59)
[2025-04-12] MEDS: PHENYTOIN 600 EA GT ×2 (09:59→20:52)
[2025-04-12] MEDS: DEX/HYPRO/GLY ARTIFICAL TEARS 225 DROP/15 ML BTL BOTH EYES (09:59)
[2025-04-12] MEDS: ACETAMINOPHEN 325 MG TABLET GT (20:53)
[2025-04-13] VITALS (7 sets, daily range): BP systolic 92–109; BP diastolic 60–77; PULSE 84–93; RESP 16–24; TEMP 36.4–36.7; O2SAT 96–99
[2025-04-13] MEDS: IPRATROPIUM/ALBUTEROL 3 ML AMPUL.NEB INH ×3 (00:11→12:11)
[2025-04-13] MEDS: METOCLOPRAMIDE 5 MG TABLET GT (05:36)
[2025-04-13] MEDS: BACLOFEN 10 MG TABLET 5 MG GT (05:36)
[2025-04-13] MEDS: NON-FORMULARY *SEE COMMENTS* 1 EA EA 250 EA GT (05:36)
[2025-04-13] MEDS: MIDODRINE 10 MG TABLET GT (05:36)
[2025-04-13 07:35] LABS: Basophils # (Auto) 0.1 Thou/mm3 (0.0-0.2); Basophils % (Auto) 1 % (0-2.5); Eosinophils # (Auto) 3.0 Thou/mm3 (0.0-0.5); Eosinophils % (Auto) 17 % (0-10); Hematocrit 28.7 % (41.0-53.0); Immature Granulocytes Auto 0.21 Thou/mm3 (0.00-0.00); Lymphocytes # (Auto) 1.6 Thou/mm3 (1.0-4.8); Lymphocytes % (Auto) 9 % (10-50); Mean Corpuscular HGB Conc 28.9 g/dl (31.0-37.0); Mean Corpuscular Hemoglobin 28.1 pg (25.0-35.0); Mean Corpuscular Volume 97 fL (80-100); Monocytes # (Auto) 1.3 Thou/mm3 (0.0-0.8); Monocytes % (Auto) 7 % (0-12); Neutrophils # (Auto) 11.2 Thou/mm3 (1.8-7.7); Neutrophils % (Auto) 64 % (37-80); Nucleated Red Blood Cell # 0.00 Thou/mm3 (0.00-0.00); Nucleated Red Blood Cell % 0 /100 WBC (0); Platelet Count 398 Thou/mm3 (140-440); RDW Standard Deviation 56.2 fL (35.1-43.9); Red Blood Count 2.95 Miln/mm3 (4.50-5.90); White Blood Count 17.5 Thou/mm3 (3.8-10.6)
[2025-04-13 07:41] LABS: Hemoglobin 8.3 g/dL (13.5-16.0)
[2025-04-13 08:04] LABS: Alanine Aminotransferase 232 U/L (10-49); Albumin, Serum 3.8 gm/dL (3.5-5.0); Albumin/Globulin Ratio 1.0 (1.2-2.2); Alkaline Phosphatase 678 U/L (46-116); Anion Gap 12 (7-16); Aspartate Amino Transferase 86 U/L (0-34); BUN/Creatinine Ratio 32 Ratio (12-20); Bilirubin,Total 0.2 mg/dL (0.3-1.2); Calcium 9.2 mg/dL (8.3-10.6); Calcium (Corrected) 9.4 mg/dL (8.5-10.1); Carbon Dioxide 26.8 mMol/L (20.0-31.0); Chloride 115 mMol/L (98-107); Creatinine (Component) 3.5 mg/dL (0.6-1.3); Estimated Creatinine Clearance 25.0 mL/min (>60); Globulin 3.9 gm/dL (2.3-3.5); Glucose 273 mg/dL (74-106); Osmolality,Calculated 350 (275-295); Phenytoin (Dilantin) > 40.0 mcg/mL; Potassium 4.8 mMol/L (3.4-5.1); Sodium 154 mMol/L (136-145); Total Protein 7.7 gm/dL (5.7-8.2); eGFR 22 See Note
[2025-04-13] MEDS: DEX/HYPRO/GLY ARTIFICAL TEARS 225 DROP/15 ML BTL BOTH EYES (08:05)
[2025-04-13] MEDS: PHENYTOIN 600 EA GT (08:05)
[2025-04-13] MEDS: FLUDROCORTISONE 0.1 MG GT (08:05)
[2025-04-13] MEDS: MULTIVITAMIN W MINERALS 1 EACH TABLET GT (08:05)
[2025-04-13] MEDS: PANTOPRAZOLE 40 MG GRANPKT.DR GT (08:06)
[2025-04-13 08:12] LABS: Blood Urea Nitrogen 111 mg/dL (9-23)
--- NOTE | 2025-04-13 11:51 | PC.NURSE ---
Tried to call Dr Silverio to notify him about the recent lab results but unable to get hold of him. Left message to call us back.
--- NOTE | 2025-04-13 12:41 | PC.NURSE ---
Dr Silverio was notified about resident's lab results, order received to start 1/2 NS at 120 ml/hr then send to ER . 1/2 NS not avaiable in [place] when checked. Called Dr Silverio again and had ordered to give 500 ml water PGT, LIFTER/DRIVER in charge made aware. Called ER and gave report, awaiting for them to call when to transfer resident. V/S as follows: 92/60, 91, 24, 97.5.
--- NOTE | 2025-04-13 12:57 | PC.NURSE ---
Called resident's aunt Yvette and made aware the order to transfer resident to ER.
--- NOTE | 2025-04-13 13:32 | PC.NURSE ---
Resident was sent out to ER at 13:31 via bed with RT, RN, NEGATIVE RESTORER
--- NOTE | 2025-04-13 17:19 | PC.NURSE ---
MD ordered to give 500ml of water PGT due to abnormal lab findings. RN on duty called ER and gave report. V/S as follows: BP 92/60, HR 91, RR 24, TEMP 97.5. Patient was sent out to ER at 13:31 via bed with RT, RN, and DAYTIME BABYSITTER.
== END 2025-04-14 11:01 | disposition admitted as inpatient to this hospital (09) | DRG 207 ==
PROVIDERS: Admitting Provider Specialist; PCP Hospitalist; Visit Provider Specialist
DX: J96.10 Chronic respiratory failure, unspecified whether with hypoxia or hypercapnia (principal); Z99.11 Dependence on respirator [ventilator] status; E27.40 Unspecified adrenocortical insufficiency; G93.1 Anoxic brain damage, not elsewhere classified; M86.68 Other chronic osteomyelitis, other site; Z93.1 Gastrostomy status; Z93.0 Tracheostomy status; R56.9 Unspecified convulsions; N31.8 Other neuromuscular dysfunction of bladder; N13.5 Crossing vessel and stricture of ureter without hydronephrosis
CPT/HCPCS: 36415; 36600; 71045; 74018; 80053; 80069; 80177; 80185; 81001; 82803; 84145; 85025; 87040; 87070; 87077; 87086; 87186; 87205; 87502; 87811; 94002; 94004; 94640; 94762

== ENCOUNTER 2025-02-13 02:10 | Emergency (ER) | payer MEDICARE, MEDICAID, SELFPAY ==
[2025-02-13 02:22] VITALS: BP 104/76; PULSE 111; RESP 16; TEMP 37.6; O2SAT 99; BMI 24.3
[2025-02-13 02:38] VITALS: BP 104/76; PULSE 109; RESP 24; O2SAT 100
--- NOTE | 2025-02-13 02:47 | PD.EDSOB ---
ED SOB =RME/HPI General Chief Complaint: Shortness of Breath/Dyspnea Stated Complaint: FOUND DISCONNECTED FROM VENT Time Seen by Provider: 02/13/25 02:15 Arrival date/time: 02/13/25 02:10 RME / HPI RME / HPI Narrative: Dr. Treviño?s Main ED Evaluation: 39yo male with a history of 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, s/p tracheostomy, PEG tube, suprapubic catheter, right nephrostomy tube due to obstructive uropathy, and bilateral upper extremity DVT brought in from subacute presents to the ED for a chief complaint of shortness of breath. Per RT, patient was disconnected from the ventilator for ~15 minutes. Patient continued to have labored breathing after he was reconnected and was sent over for evaluation. Full ROS is unobtainable due to the patient's medical condition. Related Data Home Medications ?Medication ?Instructions ?Recorded ?Confirmed Fludrocortisone 0.1 mg GT DAILY 02/22/25 02/22/25 Non Formulary Medication 100 ea G-tube BID 02/22/25 02/22/25 Non Formulary Medication 250 ea G-tube Q8HR 02/22/25 02/22/25 acetaminophen 325 mg tablet 325 mg G-tube Q6HR PRN Pain 02/22/25 02/22/25 albuterol sulfate 2.5 mg/3 mL 2.5 mg INH Q6HRRT PRN SOB or 02/22/25 02/22/25 (0.083 %) solution for nebulization wheezing artificial 1 drp Both eyes DAILY 02/22/25 02/22/25 tears([id number]) 0.1 %-0.3 %-0.2 % eye drops (GenTeal Tears Moderate) baclofen 10 mg tablet 5 mg G-tube TID 02/22/25 02/22/25 bisacodyl 10 mg rectal suppository 10 mg IL PRN PRN No BM Per Bowel 02/22/25 02/22/25 (Dulcolax (bisacodyl)) Management Protocol carbamide peroxide 6.5 % ear drops 5 drp otic (ear) Q61D 02/22/25 02/22/25 (Ear Wax Removal Drops) carbamide peroxide 6.5 % ear drops 5 drp otic (ear) Q61D 02/22/25 02/22/25 (Ear Wax Removal Drops) carbamide peroxide 6.5 % ear drops 5 drp otic (ear) Q61D 02/22/25 02/22/25 (Ear Wax Removal Drops) carbamide peroxide 6.5 % ear drops 5 drp otic (ear) Q61D 02/22/25 02/22/25 (Ear Wax Removal Drops) carbamide peroxide 6.5 % ear drops 5 drp otic (ear) Q61D 02/22/25 02/22/25 (Ear Wax Removal Drops) carbamide peroxide 6.5 % ear drops 5 drp otic (ear) Q61D 02/22/25 02/22/25 (Ear Wax Removal Drops) carbamide peroxide 6.5 % ear drops 5 drp otic (ear) Q61D 02/22/25 02/22/25 (Ear Wax Removal Drops) carbamide peroxide 6.5 % ear drops 5 drp otic (ear) Q61D 02/22/25 02/22/25 (Ear Wax Removal Drops) ipratropium 0.5 mg-albuterol 3 mg 3 ml INH Q6HRRT 02/22/25 02/22/25 (2.5 mg base)/3 mL nebulization soln levetiracetam 100 mg/mL oral 1,000 mg G-tube BID 02/22/25 02/22/25 solution lorazepam 0.5 mg tablet 0.5 mg G-tube Q6HR PRN anxiety 02/22/25 02/22/25 lorazepam 2 mg/mL injection 2 mg IM [id number] PRN Seizure 02/22/25 02/22/25 solution Activity magnesium hydroxide 400 mg/5 mL 30 ml G-tube PRN PRN Constipation 02/22/25 02/22/25 oral suspension (Milk of Magnesia) metoclopramide HCl 5 mg tablet 5 mg G-tube TID 02/22/25 02/22/25 midodrine 10 mg tablet 10 mg G-tube TID 02/22/25 02/22/25 [id number]-[id number] 1 ea G-tube QDAY 02/22/25 02/22/25 fumarate 7.5 mg-folic acid 400 mcg tablet pantoprazole 40 mg granules 40 mg G-tube QDAY 02/22/25 02/22/25 delayed-release for susp in packet polyethylene glycol 3350 17 gram 17 g G-tube PRN PRN No BM Per 02/22/25 02/22/25 oral powder packet Bowel Management Protocol sodium chloride 0.9 % (flush) 5 ml IVP Q8HR 02/22/25 02/22/25 (Normal Saline Flush 0.9 % injection syringe) sodium phosphates 19 gram-7 133 ml IL PRN PRN No BM Per Bowel 02/22/25 02/22/25 gram/118 mL enema (Fleet Enema) Management Protocol Previous Rx's ?Medication ?Instructions ?Recorded Non Formulary Medication 600 ea G-tube BID 135 days 02/23/25 Allergies Allergy/AdvReac Type Severity Reaction Status Date / Time No Known Allergies Allergy Verified 01/11/25 11:40 Review of Systems Review of Systems ROS Unobtainable: unobtainable due to medical condition ED Exam Narrative Physical exam: GENERAL APPEARANCE: obtunded, well-developed, well-nourished, no acute distress VITALS: All vitals were reviewed and the pulse ox is 100% via mechanical ventilation, which is normal according to my interpretation. HEENT: Normocephalic, atraumatic; pupils equal, round, reactive to light; EOMI; mucous membranes pink, moist; oropharynx clear NECK: Supple LUNGS: Prolonged expiratory phase; no wheezes, no rales, no rhonchi HEART: Regular rate, regular rhythm; normal S1, S2; no murmurs ABDOMEN: non distended; normal BS; soft, no tenderness, no guarding, no rebound; no masses, no organomegaly, no hernia BACK: no CVA tenderness EXTREMITIES: atraumatic; no edema NEUROLOGIC: awake; alert and oriented x4; cranial nerves II-XII grossly intact; no focal sensory or motor deficits PSYCHIATRIC: appropriate mood and affect SKIN: warm, dry, normal color; no rashes Course Course Course Narrative: CXR is ordered for determining the etiology of shortness of breath. Quality Measures none Orders Category Date Time Status Maintenance Planner NOW Care 02/13/25 02:48 Completed EKG (ED ONLY) *Do not use* NOW Care 02/13/25 02:48 Completed EKG (ED Only) Stat Exams 02/13/25 02:48 Draft XR chest 1V portable Stat Exams 02/13/25 02:48 Completed B-Type Natriuretic Peptide Stat Lab 02/13/25 03:37 Completed Blood Culture (Lab) Stat Lab 02/13/25 03:07 Completed CBC Stat Lab 02/13/25 03:03 Completed Comprehensive Metabolic Panel Stat Lab 02/13/25 03:37 Completed Lactate (Lactic Acid) Stat Lab 02/13/25 03:03 Completed Lipase Stat Lab 02/13/25 03:37 Completed Magnesium Stat Lab 02/13/25 03:37 Completed Partial Thromboplastin Time Stat Lab 02/13/25 03:37 Completed Procalcitonin Stat Lab 02/13/25 03:37 Completed Prothrombin Time with INR Stat Lab 02/13/25 03:37 Completed Troponin I Stat Lab 02/13/25 03:37 Completed Urinalysis Stat Lab 02/13/25 03:57 Completed Urine Culture Stat Lab 02/13/25 03:57 Completed ALBUTEROL RT 0.5ml [Proventil Rt 0.5ml] Med 02/13/25 04:49 Discontinued 10 mg INH X1 ONE Ipratropium [place] Rt Lala [Atrovent Rt Lala] Med 02/13/25 04:49 Discontinued 0.5 mg INH X1 ONE Sodium Chloride 0.9% 1000 ml [Ns] 1,000 ml Med 02/13/25 04:46 Discontinued IV 999 mls/hr Sodium Chloride Rt Lala 0.9% [NS Rt Lala 0.9%] Med 02/13/25 04:49 Discontinued 3 ml INH PRN PRN Volume Ventilator Routine RT 02/13/25 06:19 Active Vital Signs Vital signs: Vital Signs Temperature 99.7 F 02/13/25 02:22 Pulse Rate 111 H 02/13/25 02:22 Respiratory Rate 16 02/13/25 02:22 Blood Pressure 104/76 02/13/25 02:22 Pulse Oximetry (%) 99 02/13/25 02:22 Oxygen Delivery Method Mechanical Ventilation 02/13/25 02:22 Fraction of Inspired Oxygen 40 02/13/25 02:22 Shortness of Breath / Dyspnea MDM Narrative MDM Narrative:: Scribe Attestation: 02/13/25 - Pat Lyons am scribing for and in the presence of Dr. Treviño. 0448: Repeat exam shows decreased lung sounds at the right base and prolonged expiratory phase. Albuterol treatment and Atrovent ordered. Patient data External records reviewed:: [facility] previous records Clinical information provided by:: patient Social determinants that could affect healthcare access:: housing (subacute patient) Patient has the following chronic illnesses:: 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, s/p tracheostomy, PEG tube, suprapubic catheter, right nephrostomy tube due to obstructive uropathy, and bilateral upper extremity DVT How is presenting disease/condition affected by chronic disease/condition?: uneffected by Evaluation data The following diagnostics were reviewed and interpreted by me:: lab results, radiology exam(s) and EKG tracing(s) Lab and/or radiology exams considered but not ordered:: none Interpretation Summary: WBC count is elevated at 17.2, HnH is 8.8/27.8, Sodium is 148, Creatinine is 1.9 (which is chronic), Troponin is normal, BNP is normal, Lactic Acid is normal, Procalcitonin is normal, PT and INR are normal, PTT is normal, CXR is negative for infiltrates, cardiomegaly or bony abnormalities, according to my interpretation. EKG done at 0318, sinus tachycardia, rate of 118, normal axis, Q waves in V1, lead II, lead III, and avF, no acute ischemic changes, according to my interpretation. Medications / Prescriptions Medications or Prescriptions considered but not ordered:: none Medication administrations:: Medication Administration History Discontinued Medications Albuterol (Albuterol Rt 2.5 Mg/0.5 Ml Nebu) 10 mg INH X1 ONE Stop: 02/13/25 04:50 Last Admin: 02/13/25 05:00 Dose: 10 mg Documented By: STAR Sodium Chloride (Ns) 1,000 mls @ 999 mls/hr IV .Q1H1M ONE Stop: 02/13/25 05:46 Last Infusion: 02/13/25 06:24 Dose: Infused Documented By: Admin: 02/13/25 05:30 Dose: 999 mls/hr Documented By: ABBEY Ipratropium [place] (Ipratropium Rt 0.5 Mg/ 2.5 Ml Nebu) 0.5 mg INH X1 ONE Stop: 02/13/25 04:50 Last Admin: 02/13/25 05:01 Dose: 0.5 mg Documented By: STAR Sodium Chloride (Sodium Chloride Rt Lala 0.9% 3 Ml Nebu) 3 ml INH PRN PRN PRN Reason: SOLN Stop: 03/15/25 04:48 Last Admin: 02/13/25 05:01 Dose: 3 ml Documented By: STAR see above Consultations Consultation(s) initiated? (list below): No Diagnosis Shortness of Breath Differential Diagnosis: community acquired pneumonia and other (sepsis, equipment failure) Most likely diagnosis given after review of the tests above:: see clinical impression below Admission Indicated Admission indicated?: not indicated Admission Request Was there a request for admission?: No Disposition Plan Disposition Plan: Discharge Discharge Attestation Discharge Attestation: The patient and all family members were given an opportunity to ask questions and understood the discharge instructions. Discharge instructions specifically effects, indications for sooner follow up or return to the emergency department, and the expected course of current diagnosis. Patient condition: Stable Discharge Plan Plan Patient Disposition: HOME (Self Care) Prescriptions/Referrals Prescriptions/Med Rec: No Action acetaminophen 325 mg Tablet 325 mg G-tube Q6HR PRN (Reason: Pain) Label Comments: not to exceed 3 gms of tylenol in 24 hours from all other sources ipratropium-albuterol 0.5 mg-3 mg(2.5 mg base)/3 mL Solution For Nebulization 3 ml INH Q6HRRT albuterol sulfate 2.5 mg /3 mL (0.083 %) Solution For Nebulization 2.5 mg INH Q6HRRT PRN (Reason: SOB or wheezing) polyethylene glycol 3350 17 gram Powder In Packet 17 g G-tube PRN PRN (Reason: No BM Per Bowel Management Protocol) Label Comments: Administer as needed if 2nd round bowel protocol ineffective. Rx Instructions: Mix with 4oz of water before giving. Hold tube feeding for 30 minutes after administration. Notify provider if no results from Miralax. lorazepam 2 mg/mL Solution 2 mg IM [id number] PRN (Reason: Seizure Activity) Rx Instructions: Give 2mg (1ml) IM for seizure activity, if seizure persists, administer second dose of Ativan (within 3 minutes)2mg. if medication not effective, send resident to ED for further evaluation and notify MD. lorazepam 0.5 mg Tablet 0.5 mg G-tube Q6HR PRN (Reason: anxiety) Label Comments: AMB agitation metoclopramide HCl 5 mg Tablet 5 mg G-tube TID Label Comments: For Gut motility (BBW) magnesium hydroxide [Milk of Magnesia] 400 mg/5 mL Suspension 30 ml G-tube PRN PRN (Reason: Constipation) Rx Instructions: CONC: 400MG/5ML baclofen 10 mg Tablet 5 mg G-tube TID Label Comments: for muscle spasm bisacodyl [Dulcolax (bisacodyl)] 10 mg Suppository 10 mg IL PRN PRN (Reason: No BM Per Bowel Management Protocol) Rx Instructions: Administer as needed on 6th shift, if MOM ineffective. Fleet Enema 19-7 gram/118 mL Enema 133 ml IL PRN PRN (Reason: No BM Per Bowel Management Protocol) Label Comments: If Dulcolax is ineffective on 3rd day / 7th shift, give Fleets enema per Bowel Management Protocol. Notify MD if no results from Enema. Ear Wax Removal Drops 6.5 % Drops 5 drp otic (ear) Q61D Rx Instructions: 5 drops per ear at first med pass of shift. Then irrigate ears with NS at next med pass of each shift x 4 days for wax build up. *Start on the of the month, every two months. Ear Wax Removal Drops 6.5 % Drops 5 drp otic (ear) Q61D Rx Instructions: 5 drops per ear at first med pass of shift. Then irrigate ears with NS at next med pass of each shift x 4 days for wax build up. *Start on the of the month, every two months. Ear Wax Removal Drops 6.5 % Drops 5 drp otic (ear) Q61D Label Comments: 5 drops per ear at first med pass of shift. Then irrigate ears with NS at next med pass of each shift x 4 days for wax build up. Ear Wax Removal Drops 6.5 % Drops 5 drp otic (ear) Q61D Rx Instructions: 5 drops per ear at first med pass of shift. Then irrigate ears with NS at next med pass of each shift x 4 days for wax build up. *Start on the of the month, every two months. Ear Wax Removal Drops 6.5 % Drops 5 drp otic (ear) Q61D Label Comments: 5 drops per ear at first med pass of shift. Then irrigate ears with NS at next med pass of each shift x 4 days for wax build up. Ear Wax Removal Drops 6.5 % Drops 5 drp otic (ear) Q61D Label Comments: 5 drops per ear at first med pass of shift. Then irrigate ears with NS at next med pass of each shift x 4 days for wax build up. Ear Wax Removal Drops 6.5 % Drops 5 drp otic (ear) Q61D Label Comments: 5 drops per ear at first med pass of shift. Then irrigate ears with NS at next med pass of each shift x 4 days for wax build up. Ear Wax Removal Drops 6.5 % Drops 5 drp otic (ear) Q61D Label Comments: 5 drops per ear at first med pass of shift. Then irrigate ears with NS at next med pass of each shift x 4 days for wax build up. midodrine 10 mg Tablet 10 mg G-tube TID Label Comments: for hypotension Rx Instructions: hold if SBP >120 sodium chloride 0.9 % (flush) [Normal Saline Flush] Syringe 5 ml IVP Q8HR Label Comments: Central line FLUSH: 3-5 ML artificial tear(lzsdj-[id number]) [GenTeal Tears Moderate] 0.1-0.3-0.2 % Drops 1 drp Both eyes DAILY Rx Instructions: FOR DRYNESS levetiracetam 100 mg/mL Solution 1,000 mg G-tube BID Label Comments: conc: 100 mg/ml Rx Instructions: give 1,000 mg (10 ml) for Seizure pantoprazole [address] For Susp In Packet 40 mg G-tube QDAY Label Comments: for GERD Rx Instructions: Pantoprazole CASSIDY 40mg packets. Mix 1 packet with water (20ml) .Give via GT daily xlknavin-eth-mgeu fum-folic ac 7.5 mg iron-400 mcg Tablet 1 ea G-tube QDAY Label Comments: for supplement Fludrocortisone 0.1 mg GT DAILY Label Comments: for adrenal insufficiency Non Formulary Medication 100 ea G-tube BID Label Comments: MEDICATION NOT ON FORMULARY: Doxycycline hyclate 100 mg DRUG NAME HERE: Doxycycline hyclate 100 mg DIRECTIONS FOR USE HERE: 1 tablet PGT twice a day for Osteomylelitis, ESBL x 26 days Non Formulary Medication 250 ea G-tube Q8HR Label Comments: MEDICATION NOT ON FORMULARY: Gabapentin 250 mg/5 ml solution DRUG NAME HERE: Gabapentin 250 mg/5 ml solution DIRECTIONS FOR USE HERE: give 250 mg (5 ml) PGT three times a day for hiccups Non Formulary Medication 600 ea G-tube BID 110 Days 0RF Label Comments: MEDICATION NOT ON FORMULARY: Phenytoin 100 mg/4 ml suspension DRUG NAME HERE: Phenytoin 100 mg/ 4 ml suspension DIRECTIONS FOR USE HERE: give 600 mg (24 ml) PGT twice a day for seizure (hold tube feeding 1 hour before and 1 hour after medication administration) Referrals: Yovany Silverio MD [Primary Care Provider] - In 1 week Problem List Clinical Impression: Ventilator dependent, Equipment malfunction Patient/Caregiver Discharge Instructions Print Language: Maltese Stand Alone Forms: Vanessa Award Info., Patient Portal Info Letter
--- NOTE | 2025-02-13 02:48 | XR_ITS ---
Examination: AP chest single view TECHNIQUE: Supine AP portable chest single view Examination time: February 13, 2025, 0407 hours Comparison January 29, 2025 INDICATIONS: Chest pain shortness of breath today. FINDINGS: Normal heart size Increased markings at the left base retrocardiac with air bronchograms Tracheostomy tube tip 7.8 cm above dudley. Right internal jugular central line tip SVC satisfactory position No pulmonary edema Increased markings also at the right base IMPRESSION: Bibasilar pneumonia
--- NOTE | 2025-02-13 02:48 | EKG_ITS ---
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1985 Requested By: Fernanda Fraire Order Number: [id number] Reading MD: Fernanda Fraire Measurements Intervals [place] Rate: 110 P: 74 ME: 151 QRS: 94 QRSD: 66 T: 78 QT: 326 QTc: 441 Interpretive Statements SINUS TACHYCARDIA BORDERLINE RIGHT AXIS DEVIATION [QRS AXIS > 90] LOW QRS VOLTAGE IN PRECORDIAL LEADS [QRS DEFLECTION < 1.0 mV IN CHEST LEADS] ST ELEVATION, CONSIDER INFERIOR INJURY [MARKED ST ELEVATION W/O NORMALLY INFLECTED T-WAVE IN II/aVF] ACUTE IL Compared to ECG 01/07/2025 18:07:06 ST (T wave) deviation now present Indeterminate axis no longer present Myocardial infarct finding still present /store/S0/[id number]/ecg/[id number].pdf
[2025-02-13 03:12] LABS: Lactate (Lactic Acid) 0.7 mMol/L (0.4-2.0)
[2025-02-13 03:16] LABS: Basophils # (Auto) 0.1 Thou/mm3 (0.0-0.2); Basophils % (Auto) 1 % (0-2.5); Eosinophils # (Auto) 3.1 Thou/mm3 (0.0-0.5); Eosinophils % (Auto) 18 % (0-10); Hematocrit 27.8 % (41.0-53.0); Immature Granulocytes % (Auto) 0 % (0-0); Immature Granulocytes Auto 0.06 Thou/mm3 (0.00-0.00); Lymphocytes # (Auto) 1.7 Thou/mm3 (1.0-4.8); Lymphocytes % (Auto) 10 % (10-50); Mean Corpuscular HGB Conc 31.7 g/dl (31.0-37.0); Mean Corpuscular Hemoglobin 29.5 pg (25.0-35.0); Mean Corpuscular Volume 93 fL (80-100); Monocytes # (Auto) 1.1 Thou/mm3 (0.0-0.8); Monocytes % (Auto) 7 % (0-12); Neutrophils % (Auto) 64 % (37-80); Nucleated Red Blood Cell % 0 /100 WBC (0); Platelet Count 420 Thou/mm3 (140-440); RDW Standard Deviation 52.7 fL (35.1-43.9); Red Blood Count 2.98 Miln/mm3 (4.50-5.90); White Blood Count 17.2 Thou/mm3 (3.8-10.6)
[2025-02-13 03:28] LABS: Hemoglobin 8.8 g/dL (13.5-16.0)
[2025-02-13 03:59] VITALS: BP 106/86; PULSE 110; RESP 18; TEMP 37.9; O2SAT 100
[2025-02-13 04:10] LABS: Collection Type, Urine Clean Catch; RBC,Urine 0 /hpf (0-3); Squamous Epithelial Cell,Urine 0 /hpf (0-5)
[2025-02-13 04:21] LABS: B-Type Natriuretic Peptide < 20 pg/mL (0-100)
[2025-02-13 04:24] LABS: Alanine Aminotransferase 34 U/L (10-49); Albumin, Serum 3.8 gm/dL (3.5-5.0); Albumin/Globulin Ratio 1.2 (1.2-2.2); Alkaline Phosphatase 150 U/L (46-116); Anion Gap 11 (7-16); Aspartate Amino Transferase 23 U/L (0-34); BUN/Creatinine Ratio 25 Ratio (12-20); Bilirubin,Total < 0.2 mg/dL (0.3-1.2); Blood Urea Nitrogen 48 mg/dL (9-23); Calcium 8.7 mg/dL (8.3-10.6); Calcium (Corrected) 8.9 mg/dL (8.5-10.1); Carbon Dioxide 27.5 mMol/L (20.0-31.0); Chloride 110 mMol/L (98-107); Creatinine (Component) 1.9 mg/dL (0.6-1.3); Estimated Creatinine Clearance 51.2 mL/min (>60); Globulin 3.3 gm/dL (2.3-3.5); Glucose 88 mg/dL (74-106); Lipase 27 U/L (12-53); Magnesium 2.1 mg/dL (1.6-2.6); Osmolality,Calculated 305 (275-295); Potassium 4.5 mMol/L (3.4-5.1); Sodium 148 mMol/L (136-145); Total Protein 7.1 gm/dL (5.7-8.2); Troponin I < 0.002 ng/mL (0.0-0.045); eGFR 45 See Note
[2025-02-13 04:29] LABS: Procalcitonin 0.36 ng/ml (0.0-0.49)
[2025-02-13 04:30] LABS: Bacteria,Urine Rare; Bilirubin,Urine Negative (Negative); Blood,Urine Negative (Negative); Budding Yeast,Urine Present; Clarity,Urine Turbid (Clear/Hazy); Color,Urine Lt-Yellow (Lt Yel-Yel); Glucose, Urine Negative (Negative); Ketones,Urine Negative (Negative); Leukocyte Esterase,Urine Positive (Negative); Nitrite,Urine Negative (Negative); Protein,Urine 1+ (Neg - Trace); Specific Gravity,Urine 1.017 (1.001-1.035); Urobilinogen,Urine Negative mg/dL (0.0-1.0); WBC,Urine 64 /hpf (0-5)
[2025-02-13 04:35] LABS: INR 1.1 (0.9-1.3); Prothrombin Time 11.6 Seconds (9.0-12.2)
[2025-02-13 05:00] VITALS: PULSE 110
[2025-02-13] MEDS: ALBUTEROL RT 2.5 MG/0.5 ML NEBU 10 MG INH (05:00)
[2025-02-13] MEDS: IPRATROPIUM RT 0.5 MG/ 2.5 ML NEBU INH (05:01)
[2025-02-13] MEDS: SODIUM CHLORIDE RT SOL 0.9% 3 ML NEBU INH (05:01)
[2025-02-13] MEDS: SODIUM CHLORIDE 0.9% 1000 ML 1,000 ML 999 ML IV (05:30)
[2025-02-13 06:14] VITALS: BP 105/75; PULSE 108; RESP 22; O2SAT 97
[2025-02-13 06:24] VITALS: BP 105/75; PULSE 105; RESP 24; TEMP 37.8; O2SAT 99
== END 2025-02-13 06:27 | disposition skilled nursing facility (03) ==
PROVIDERS: Emergency Provider Emergency Medicine; PCP Specialist
DX: J95.859 Other complication of respirator [ventilator] (principal); Y84.8 Other medical procedures as the cause of abnormal reaction of the patient, or of later complication, without mention of misadventure at the time of the procedure; Y92.122 Bedroom in nursing home as the place of occurrence of the external cause; Z99.11 Dependence on respirator [ventilator] status; Z93.0 Tracheostomy status; G93.1 Anoxic brain damage, not elsewhere classified; Z86.74 Personal history of sudden cardiac arrest
CPT/HCPCS: 36415; 71045; 80053; 81001; 83605; 83690; 83735; 83880; 84145; 84484; 85025; 85610; 85730; 87040; 87086; 87106; 93005; 94002; 96360; 99284; J7030

== ENCOUNTER 2025-04-13 13:37 | Inpatient (IN) | payer MEDICARE, MEDICAID, SELFPAY ==
[2025-04-13] VITALS (11 sets, daily range): BP systolic 93–119; BP diastolic 55–79; PULSE 86–90; RESP 16–25; TEMP 36.6–37; O2SAT 92–98; BMI 27.8
--- NOTE | 2025-04-13 14:17 | XR_ITS ---
Examination: AP chest single view Technique one AP portable semiupright chest single view Date and time: April 13, 2025 1425 hours Comparison December 03, 2024 INDICATIONS: Chest pain fever today. FINDINGS: Bibasilar right middle lobe pneumonia Mild prominence left ventricle Tracheostomy tube tip 6.2 cm above dudley Mild to moderate vascular congestion Right internal jugular central line tip SVC IMPRESSION: Bibasilar and right middle lobe pneumonia
--- NOTE | 2025-04-13 14:17 | EKG_ITS ---
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: : 1985 Requested By: Fernanda Fraire Order Number: [id number] Reading MD: Fernanda Fraire Measurements Intervals [place] Rate: 87 P: 46 FL: 146 QRS: 5 QRSD: 82 T: 72 QT: 372 QTc: 448 Interpretive Statements SINUS RHYTHM INDETERMINATE AXIS LOW QRS VOLTAGE IN PRECORDIAL LEADS [QRS DEFLECTION < 1.0 mV IN CHEST LEADS] ST ELEVATION, CONSIDER INFERIOR INJURY [MARKED ST ELEVATION W/O NORMALLY INFLECTED T-WAVE IN II/aVF] ACUTE PR Compared to ECG 02/13/2025 03:18:43 Indeterminate axis now present Sinus tachycardia no longer present ST (T wave) deviation still present Myocardial infarct finding still present /store/S0/[id number]/ecg/[id number].pdf
--- NOTE | 2025-04-13 14:49 | PC.NURSE ---
SPOKE TO DR. GALAVIZ TO SEEK CLARIFICATION IF OK TO ACCESS PT'S PICC LINE IN R UPPER CHEST; PER DR. GALAVIZ, OK TO USE PT'S PICC LINE AT THIS TIME.
[2025-04-13 14:58] LABS: Basophils # (Auto) 0.1 Thou/mm3 (0.0-0.2); Basophils % (Auto) 1 % (0-2.5); Eosinophils # (Auto) 2.7 Thou/mm3 (0.0-0.5); Eosinophils % (Auto) 14 % (0-10); Hematocrit 26.9 % (41.0-53.0); Immature Granulocytes Auto 0.27 Thou/mm3 (0.00-0.00); Lymphocytes # (Auto) 1.3 Thou/mm3 (1.0-4.8); Lymphocytes % (Auto) 7 % (10-50); Mean Corpuscular HGB Conc 29.4 g/dl (31.0-37.0); Mean Corpuscular Hemoglobin 28.4 pg (25.0-35.0); Mean Corpuscular Volume 97 fL (80-100); Monocytes # (Auto) 1.3 Thou/mm3 (0.0-0.8); Monocytes % (Auto) 7 % (0-12); Neutrophils # (Auto) 13.1 Thou/mm3 (1.8-7.7); Neutrophils % (Auto) 70 % (37-80); Nucleated Red Blood Cell # 0.00 Thou/mm3 (0.00-0.00); Nucleated Red Blood Cell % 0 /100 WBC (0); Platelet Count 402 Thou/mm3 (140-440); RDW Standard Deviation 56.6 fL (35.1-43.9); Red Blood Count 2.78 Miln/mm3 (4.50-5.90); White Blood Count 18.9 Thou/mm3 (3.8-10.6)
[2025-04-13 15:02] LABS: Hemoglobin 7.9 g/dL (13.5-16.0)
[2025-04-13 15:08] LABS: INR 1.0 (0.9-1.3); Partial Thromboplastin Time 35.3 Seconds (22.0-36.0); Prothrombin Time 10.9 Seconds (9.0-12.2)
[2025-04-13 15:18] LABS: B-Type Natriuretic Peptide < 20 pg/mL (0-100)
[2025-04-13 15:27] LABS: Alanine Aminotransferase 195 U/L (10-49); Albumin, Serum 3.5 gm/dL (3.5-5.0); Albumin/Globulin Ratio 0.9 (1.2-2.2); Alkaline Phosphatase 630 U/L (46-116); Anion Gap 9 (7-16); Aspartate Amino Transferase 63 U/L (0-34); BUN/Creatinine Ratio 30 Ratio (12-20); Bilirubin,Total 0.2 mg/dL (0.3-1.2); Calcium 8.9 mg/dL (8.3-10.6); Calcium (Corrected) 9.3 mg/dL (8.5-10.1); Carbon Dioxide 26.1 mMol/L (20.0-31.0); Chloride 114 mMol/L (98-107); Creatinine (Component) 3.4 mg/dL (0.6-1.3); Estimated Creatinine Clearance 26.2 mL/min (>60); Globulin 3.8 gm/dL (2.3-3.5); Glucose 357 mg/dL (74-106); Lipase 24 U/L (12-53); Magnesium 2.8 mg/dL (1.6-2.6); Osmolality,Calculated 342 (275-295); Potassium 4.4 mMol/L (3.4-5.1); Sodium 149 mMol/L (136-145); Total Protein 7.3 gm/dL (5.7-8.2); Troponin I < 0.002 ng/mL (0.0-0.045); eGFR 22 See Note
[2025-04-13 15:33] LABS: Blood Urea Nitrogen 102 mg/dL (9-23)
[2025-04-13 16:28] LABS: Collection Type, Urine Clean Catch; Squamous Epithelial Cell,Urine 0 /hpf (0-5)
[2025-04-13] MEDS: SODIUM CHLORIDE 0.9% 1000 ML 1,000 ML 999 ML IV (16:36)
[2025-04-13 16:42] LABS: Lactate (Lactic Acid) 1.0 mMol/L (0.4-2.0)
[2025-04-13 16:52] LABS: Amorphous Crystals,Urine Present (Absent); Bacteria,Urine 1+; Bilirubin,Urine Negative (Negative); Blood,Urine 1+ (Negative); Clarity,Urine Turbid (Clear/Hazy); Color,Urine Yellow (Lt Yel-Yel); Glucose, Urine 3+ (Negative); Ketones,Urine Negative (Negative); Leukocyte Esterase,Urine Positive (Negative); Nitrite,Urine Positive (Negative); PH,Urine 8.0 (5.0-7.0); Protein,Urine 2+ (Neg - Trace); RBC,Urine 8 /hpf (0-3); Specific Gravity,Urine 1.016 (1.001-1.035); Urobilinogen,Urine Negative mg/dL (0.0-1.0); WBC,Urine 107 /hpf (0-5)
[2025-04-13 17:16] LABS: Procalcitonin 1.67 ng/ml (0.0-0.49)
--- NOTE | 2025-04-13 17:21 | PC.NURSE ---
PT'S PEG TUBE SITE CLEANED WITH NORMAL SALINE AND GUAZE; SITE REDRESSED WITH T-SPONGE GAUZE AND TAPED OVER.
--- NOTE | 2025-04-13 17:31 | PC.NURSE ---
Addendum entered by Emma Faria RN 04/13/25 17:51: @0177- PT'S TREMORS/SHAKES LASTED FOR ABOUT 10 SECONDS. Addendum entered by Emma Faria RN 04/13/25 17:39: @3350- PT'S VS RECHECKED. HR 88, 93% 02 SAT VIA TRACH, 19 RR, WITH ORAL TEMP 98.6 AND BP 93/65 Original Note: PT OBSERVED BY RN TO HAVE BODY SHAKES/TREMORS. PT HAS HX OF PERSISTENT VEGETATIVE STATE AND SEIZURES. DR. GALAVIZ CALLED TO BEDSIDE. VERBAL ORDERS RECEIVED FOR 2MG OF ATIVAN.
[2025-04-13] MEDS: LORazepam 2 MG/ML VIAL IVP (17:41)
--- NOTE | 2025-04-13 18:12 | PD.EDRECHK ---
ED Recheck Abnl Lab Rx-RME/HPI General Chief Complaint: Recheck/Abnormal Lab/Rx Stated Complaint: ABNORMAL KIDNEY FUNCTION Time Seen by Provider: 04/13/25 14:17 Arrival date/time: 04/13/25 13:37 RME / HPI RME / HPI narrative: 39yo male with a history of anoxic brain injury 2/2 cardiac arrest, s/p tracheostomy, mechanical ventilation, PEG tube, suprapubic catheter, right nephrostomy tube due to obstructive uropathy, and BUE DVT brought in from subacute presents to the ED for a chief complaint of abnormal kidney function and fever per subacute staff. Full ROS is unobtainable due to the patient's medical condition. Related Data Home Medications ?Medication ?Instructions ?Recorded ?Confirmed Fludrocortisone 0.1 mg GT DAILY 04/15/25 04/13/25 Non Formulary Medication 250 ea G-tube TID 04/15/25 04/13/25 acetaminophen 325 mg tablet 325 mg G-tube Q6HR PRN Pain 04/15/25 04/13/25 albuterol sulfate 2.5 mg/3 mL 2.5 mg INH Q6HRRT PRN SOB or 04/15/25 04/13/25 (0.083 %) solution for nebulization wheezing artificial 1 drp Both eyes BID 04/15/25 04/13/25 tears(kddwnen-lfbdcjkl-aybrrvm) 0.1 %-0.3 %-0.2 % eye drops (GenTeal Tears Moderate) baclofen 10 mg tablet 5 mg G-tube TID 04/15/25 04/13/25 bisacodyl 10 mg rectal suppository 10 mg MN PRN PRN No BM Per Bowel 04/15/25 04/13/25 (Dulcolax (bisacodyl)) Management Protocol carbamide peroxide 6.5 % ear drops 5 drp otic (ear) Q61D 04/15/25 04/13/25 (Ear Wax Removal Drops) ipratropium 0.5 mg-albuterol 3 mg 3 ml INH Q6HRRT 04/15/25 04/13/25 (2.5 mg base)/3 mL nebulization soln levetiracetam 100 mg/mL oral 1,000 mg G-tube BID 04/15/25 04/13/25 solution lorazepam 0.5 mg tablet 0.5 mg G-tube Q6HR PRN anxiety 04/15/25 04/13/25 lorazepam 2 mg/mL injection 2 mg IM [id number] PRN Seizure 04/15/25 04/13/25 solution Activity magnesium hydroxide 400 mg/5 mL 30 ml G-tube PRN PRN Constipation 04/15/25 04/13/25 oral suspension (Milk of Magnesia) metoclopramide HCl 5 mg tablet 5 mg G-tube TID 04/15/25 04/13/25 midodrine 10 mg tablet 10 mg G-tube TID 04/15/25 04/13/25 bvbtuqnomneq-fvlwtpzz-qecm 1 ea G-tube QDAY 04/15/25 04/13/25 fumarate 7.5 mg-folic acid 400 mcg tablet pantoprazole 40 mg granules 40 mg G-tube QDAY 04/15/25 04/13/25 delayed-release for susp in packet polyethylene glycol 3350 17 gram 17 g G-tube PRN PRN No BM Per 04/15/25 04/13/25 oral powder packet Bowel Management Protocol sodium chloride 0.9 % (flush) 5 ml IVP Q8HR 04/15/25 04/13/25 (Normal Saline Flush 0.9 % injection syringe) sodium phosphates 19 gram-7 133 ml MN PRN PRN No BM Per Bowel 04/15/25 04/13/25 gram/118 mL enema (Fleet Enema) Management Protocol Previous Rx's ?Medication ?Instructions ?Recorded phenytoin 100 mg/4 mL oral 600 mg (24 mL) G-tube BID 1 month 04/20/25 suspension #1,440 mL Allergies Allergy/AdvReac Type Severity Reaction Status Date / Time No Known Allergies Allergy Verified 01/11/25 11:40 Review of Systems Review of Systems ROS Unobtainable: unobtainable due to medical condition ED Exam Narrative Physical exam: GENERAL APPEARANCE: awake, nonverbal, trach and PEG tube in place, no acute distress HEENT: Normocephalic, atraumatic; pupils equal, round, reactive to light; EOMI; mucous membranes pink, moist; oropharynx clear NECK: Supple LUNGS: CTABL; no wheezes, no rales, no rhonchi HEART: Regular rate, regular rhythm; normal S1, S2; no murmurs ABDOMEN: non distended; normal BS; soft, no tenderness, no guarding, no rebound; no masses, no organomegaly, no hernia EXTREMITIES: atraumatic; no edema NEUROLOGIC: awake, nonverbal at baseline SKIN: warm, dry, normal color; no rashes Course Course Course Narrative: CXR is ordered for determining the etiology of fever. Quality Measures none Orders Category Date Time Status COVID-19 Screening Questionnaire NOW Care 04/13/25 20:16 Active Decorator Store NOW Care 04/13/25 14:17 Active Decision to Admit X1 Care 04/13/25 20:16 Completed EKG (ED ONLY) *Do not use* NOW Care 04/13/25 14:17 Completed Miscellaneous Nursing Order NOW Care 04/13/25 15:45 Active Referral Wound Care Stat Cons 04/13/25 14:31 Active EKG (ED Only) Stat Exams 04/13/25 14:17 Draft XR chest 1V portable Stat Exams 04/13/25 14:17 Completed B-Type Natriuretic Peptide Stat Lab 04/13/25 14:37 Completed Blood Culture (Lab) Stat Lab 04/13/25 16:35 Completed CBC Stat Lab 04/13/25 14:37 Completed Comprehensive Metabolic Panel Stat Lab 04/13/25 14:37 Completed Lactate (Lactic Acid) Stat Lab 04/13/25 16:33 Completed Lipase Stat Lab 04/13/25 14:37 Completed Magnesium Stat Lab 04/13/25 14:37 Completed Partial Thromboplastin Time Stat Lab 04/13/25 14:37 Completed Procalcitonin Stat Lab 04/13/25 16:33 Completed Prothrombin Time with INR Stat Lab 04/13/25 14:37 Completed Troponin I Stat Lab 04/13/25 14:37 Completed Urinalysis Stat Lab 04/13/25 16:16 Completed Urine Culture Stat Lab 04/13/25 16:16 Completed LORazepam [Ativan Inj] Med 04/13/25 17:31 Discontinued 2 mg IVP X1 ONE Sodium Chloride 0.9% 1000 ml [Ns] 1,000 ml Med 04/13/25 16:18 Discontinued IV 999 mls/hr Vital Signs Vital signs: Vital Signs Pulse Rate 86 04/13/25 14:00 Pulse Oximetry (%) 98 04/13/25 14:00 Fraction of Inspired Oxygen 40 04/13/25 14:00 Recheck / Abnormal Lab / Rx Patient data External records reviewed:: [facility] previous records (Reviewed subacute notes.) Clinical information provided by:: none (subacute staff) Social determinants that could affect healthcare access:: housing (subacute resident) Patient has the following chronic illnesses:: anoxic brain injury 2/2 cardiac arrest, s/p tracheostomy, mechanical ventilation, PEG tube, suprapubic catheter, right nephrostomy tube due to obstructive uropathy, and BUE DVT How is presenting disease/condition affected by chronic disease/condition?: caused by Evaluation data The following diagnostics were reviewed and interpreted by me:: lab results, radiology exam(s) and EKG tracing(s) Lab and/or radiology exams considered but not ordered:: none Interpretation Summary: EKG done at 1436, NSR, rate of 87, Q waves in V1, V2, and lead III, flattening of the ST segments on V1 and V2, mild ST elevation in lead II, according to my interpretation. ------ [facility] Report Signed Patient: KETTY BATES [facility] Record#: [id number] Birthdate: 1985 Age/Sex: 39 / M Location: [facility] Attending Dr: Ordering Physician: Fernanda Treviño MD Date of Service: 04/13/25 Procedure(s): XR chest 1V portable Accession Number(s): [id number] cc: Augustine Duron MD; NO PRIMARY/FAMILY,PHYSICIAN; Fernanda Treviño MD~ Examination: AP chest single view Technique one AP portable semiupright chest single view Date and time: April 13, 2025 1425 hours Comparison December 03, 2024 INDICATIONS: Chest pain fever today. FINDINGS: Bibasilar right middle lobe pneumonia Mild prominence left ventricle Tracheostomy tube tip 6.2 cm above dudley Mild to moderate vascular congestion Right internal jugular central line tip SVC IMPRESSION: Bibasilar and right middle lobe pneumonia Dictated By: Augustine Duron MD Signed By: <Electronically signed by Augustine Duron MD in OV> 04/13/25 1451 Medications / Prescriptions Medications or Prescriptions considered but not ordered:: none Medication administrations:: Medication Administration History Acetaminophen (Acetaminophen Lala 325 Mg/10 Ml Udc) 325 mg GT Q4HR PRN PRN Reason: Pain 1-3 Or Fever > 101 Stop: 05/13/25 21:44 Last Admin: 04/21/25 12:55 Dose: 325 mg Documented By: Admin: 04/18/25 13:31 Dose: 325 mg Documented By: TD Albuterol/Ipratropium (Albuterol/Ipratropium (Duoneb) Rt Lala 3 Ml Nebu) 3 ml INH Q2HR PRN PRN Reason: SHORTNESS OF BREATH OR WHEEZE Stop: 05/18/25 09:52 Last Admin: 04/20/25 12:49 Dose: 3 ml Documented By: Admin: 04/18/25 10:40 Dose: 3 ml Documented By: CHUY Apixaban (Apixaban 2.5 Mg Tablet) 5 mg GT BID KIT Stop: 05/05/25 08:59 Last Admin: 04/23/25 21:25 Dose: 5 mg Documented By: Admin: 04/23/25 10:15 Dose: 5 mg Documented By: Admin: 04/22/25 21:43 Dose: 5 mg Documented By: Admin: 04/22/25 09:06 Dose: 5 mg Documented By: Admin: 04/21/25 20:45 Dose: 5 mg Documented By: Admin: 04/21/25 09:59 Dose: 5 mg Documented By: Admin: 04/20/25 21:25 Dose: 5 mg Documented By: Admin: 04/20/25 08:35 Dose: 5 mg Documented By: Admin: 04/19/25 21:33 Dose: 5 mg Documented By: Admin: 04/19/25 08:39 Dose: 5 mg Documented By: Admin: 04/18/25 21:48 Dose: 5 mg Documented By: Admin: 04/18/25 09:11 Dose: 5 mg Documented By: Admin: 04/17/25 21:38 Dose: 5 mg Documented By: Admin: 04/17/25 09:57 Dose: 5 mg Documented By: Admin: 04/16/25 21:40 Dose: 5 mg Documented By: Admin: 04/16/25 09:03 Dose: 5 mg Documented By: Admin: 04/15/25 20:31 Dose: 5 mg Documented By: Admin: 04/15/25 08:14 Dose: 5 mg Documented By: Admin: 04/14/25 21:10 Dose: 5 mg Documented By: Admin: 04/14/25 10:24 Dose: 5 mg Documented By: ROMAIN Artificial Tears (Artificial Tears 225 Drop/15 Ml Btl) 1 drop BOTH EYES BID KIT Stop: 05/14/25 08:59 Last Admin: 04/23/25 21:27 Dose: 1 drop Documented By: Admin: 04/23/25 10:24 Dose: 1 drop Documented By: Admin: 04/22/25 21:47 Dose: 1 drop Documented By: Admin: 04/22/25 09:10 Dose: 1 drop Documented By: Admin: 04/21/25 20:45 Dose: 1 drop Documented By: Admin: 04/21/25 10:01 Dose: 1 drop Documented By: Admin: 04/20/25 21:25 Dose: 1 drop Documented By: Admin: 04/20/25 08:54 Dose: 1 drop Documented By: Admin: 04/19/25 21:54 Dose: 1 drop Documented By: Admin: 04/19/25 08:39 Dose: Not Given Documented By: DEVYN Non-Admin Reason: Medication Not Available Admin: 04/18/25 21:50 Dose: 1 drop Documented By: BOUBACAR Comments: bilateral eyes Admin: 04/18/25 09:17 Dose: 1 drop Documented By: TD Comments: both eyes Admin: 04/17/25 21:41 Dose: 1 drop Documented By: BOUBACAR Comments: BILATERAL EYES Admin: 04/17/25 09:30 Dose: 1 drop Documented By: Admin: 04/16/25 21:49 Dose: 1 drop Documented By: Admin: 04/16/25 09:05 Dose: 1 drop Documented By: Admin: 04/15/25 20:28 Dose: 1 drop Documented By: Admin: 04/15/25 08:15 Dose: 1 drop Documented By: Admin: 04/14/25 21:38 Dose: 1 drop Documented By: Admin: 04/14/25 10:24 Dose: 1 drop Documented By: ROMAIN Baclofen (Baclofen 10 Mg Tablet) 5 mg GT TID KIT Stop: 05/13/25 21:59 Last Admin: 04/23/25 21:25 Dose: 5 mg Documented By: Admin: 04/23/25 14:07 Dose: 5 mg Documented By: Admin: 04/23/25 05:43 Dose: 5 mg Documented By: Admin: 04/22/25 21:44 Dose: 5 mg Documented By: Admin: 04/22/25 14:54 Dose: 5 mg Documented By: Admin: 04/22/25 05:16 Dose: 5 mg Documented By: Admin: 04/21/25 22:03 Dose: 5 mg Documented By: Admin: 04/21/25 14:50 Dose: 5 mg Documented By: Admin: 04/21/25 05:31 Dose: 5 mg Documented By: Admin: 04/20/25 21:31 Dose: 5 mg Documented By: Admin: 04/20/25 15:52 Dose: 5 mg Documented By: Admin: 04/20/25 06:17 Dose: 5 mg Documented By: Admin: 04/19/25 21:34 Dose: 5 mg Documented By: Admin: 04/19/25 13:37 Dose: 5 mg Documented By: Admin: 04/19/25 06:12 Dose: 5 mg Documented By: Admin: 04/18/25 21:48 Dose: 5 mg Documented By: Admin: 04/18/25 13:31 Dose: 5 mg Documented By: Admin: 04/18/25 05:56 Dose: 5 mg Documented By: Admin: 04/17/25 21:38 Dose: 5 mg Documented By: Admin: 04/17/25 14:07 Dose: 5 mg Documented By: Admin: 04/17/25 05:24 Dose: 5 mg Documented By: Admin: 04/16/25 21:41 Dose: 5 mg Documented By: Admin: 04/16/25 13:21 Dose: 5 mg Documented By: Admin: 04/16/25 06:07 Dose: 5 mg Documented By: Admin: 04/15/25 21:10 Dose: 5 mg Documented By: Admin: 04/15/25 13:34 Dose: 5 mg Documented By: Admin: 04/15/25 05:03 Dose: 5 mg Documented By: Admin: 04/14/25 21:10 Dose: 5 mg Documented By: Admin: 04/14/25 13:18 Dose: 5 mg Documented By: Admin: 04/14/25 07:03 Dose: 5 mg Documented By: Admin: 04/13/25 23:14 Dose: 5 mg Documented By: KANCHAN Bisacodyl (Bisacodyl 10 Mg Supp) 10 mg MN Q72H PRN; Protocol PRN Reason: CONSTIPATION Stop: 05/19/25 08:10 Carbamide Peroxide (Carbamide Peroxide Otic Lala 15 Ml Btl) 5 drop BOTH EARS Q61D [facility] Stop: 05/13/25 21:59 Last Admin: 04/13/25 23:38 Dose: 5 drops Documented By: KANCHAN Comments: 5 DROPS Collagenase (Collagenase Oint 30 Gm Tube) 0 gm TOP HS [facility] Stop: 05/14/25 20:59 Last Admin: 04/23/25 21:24 Dose: 1 applicatio Documented By: Admin: 04/22/25 21:47 Dose: 1 applicatio Documented By: Admin: 04/21/25 20:46 Dose: 1 applicatio Documented By: Admin: 04/20/25 21:25 Dose: 1 applicatio Documented By: Admin: 04/19/25 21:54 Dose: 1 applicatio Documented By: Admin: 04/18/25 21:49 Dose: 1 applicatio Documented By: Admin: 04/17/25 21:40 Dose: 1 applicatio Documented By: Admin: 04/16/25 21:46 Dose: 1 applicatio Documented By: Admin: 04/15/25 20:28 Dose: 1 applicatio Documented By: Admin: 04/14/25 21:36 Dose: 1 applicatio Documented By: ANN Fludrocortisone Acetate (Fludrocortisone Acetate 0.1 Mg Tablet) 0.1 mg GT DAILY KIT Stop: 05/14/25 08:59 Last Admin: 04/23/25 10:23 Dose: 0.1 mg Documented By: Admin: 04/22/25 09:06 Dose: 0.1 mg Documented By: Admin: 04/21/25 10:00 Dose: 0.1 mg Documented By: Admin: 04/20/25 08:35 Dose: 0.1 mg Documented By: Admin: 04/19/25 08:39 Dose: 0.1 mg Documented By: Admin: 04/18/25 09:12 Dose: 0.1 mg Documented By: Admin: 04/17/25 09:57 Dose: 0.1 mg Documented By: Admin: 04/16/25 09:04 Dose: 0.1 mg Documented By: Admin: 04/15/25 08:15 Dose: 0.1 mg Documented By: Admin: 04/14/25 13:23 Dose: 0.1 mg Documented By: JACKELIN Guaifenesin (Guaifenesin Syrup 200 Mg/10 Ml Udc) 200 mg GT QID PRN; Protocol PRN Reason: thickened sputum/COUGH Stop: 05/18/25 10:31 Last Admin: 04/20/25 07:31 Dose: 200 mg Documented By: MARGUERITE Ceftazidime/Avibactam 2.5 gm/ (Sodium Chloride) 100 mls @ 50 mls/hr IV Q12HR KIT Stop: 04/29/25 12:14 Last Admin: 04/23/25 21:22 Dose: 50 mls/hr Documented By: Infusion: 04/23/25 12:15 Dose: Infused Documented By: Admin: 04/23/25 10:15 Dose: 50 mls/hr Documented By: Infusion: 04/22/25 23:43 Dose: Infused Documented By: Admin: 04/22/25 21:43 Dose: 50 mls/hr Documented By: Infusion: 04/22/25 14:24 Dose: Infused Documented By: Admin: 04/22/25 12:24 Dose: 50 mls/hr Documented By: JACKELIN Dextrose (D5w) 500 mls @ 70 mls/hr IV .Q7H9M KIT Stop: 04/23/25 22:02 Last Admin: 04/23/25 18:25 Dose: 70 mls/hr Documented By: Infusion: 04/23/25 18:25 Dose: Infused Documented By: Admin: 04/23/25 12:41 Dose: 70 mls/hr Documented By: ELDER Lansoprazole (Lansoprazole 30 Mg Tab.Rap.) 30 mg GT QDAY KIT Stop: 05/14/25 08:59 Last Admin: 04/23/25 10:24 Dose: 30 mg Documented By: Admin: 04/22/25 09:06 Dose: 30 mg Documented By: Admin: 04/21/25 09:59 Dose: 30 mg Documented By: Admin: 04/20/25 08:36 Dose: 30 mg Documented By: Admin: 04/19/25 08:39 Dose: 30 mg Documented By: Admin: 04/18/25 09:12 Dose: 30 mg Documented By: Admin: 04/17/25 09:57 Dose: 30 mg Documented By: Admin: 04/16/25 09:03 Dose: 30 mg Documented By: DL Levetiracetam (Levetiracetam Liqd 500 Mg/5 Ml Udc) 1,000 mg GT BID KIT Stop: 05/13/25 21:59 Last Admin: 04/23/25 21:25 Dose: 1,000 mg Documented By: Admin: 04/23/25 10:15 Dose: 1,000 mg Documented By: Admin: 04/22/25 21:44 Dose: 1,000 mg Documented By: Admin: 04/22/25 09:06 Dose: 1,000 mg Documented By: Admin: 04/21/25 20:46 Dose: 1,000 mg Documented By: Admin: 04/21/25 10:00 Dose: 1,000 mg Documented By: Admin: 04/20/25 21:26 Dose: 1,000 mg Documented By: Admin: 04/20/25 08:36 Dose: 1,000 mg Documented By: Admin: 04/19/25 21:34 Dose: 1,000 mg Documented By: Admin: 04/19/25 08:38 Dose: 1,000 mg Documented By: Admin: 04/18/25 21:48 Dose: 1,000 mg Documented By: Admin: 04/18/25 09:11 Dose: 1,000 mg Documented By: Admin: 04/17/25 21:39 Dose: 1,000 mg Documented By: Admin: 04/17/25 09:57 Dose: 1,000 mg Documented By: Admin: 04/16/25 21:40 Dose: 1,000 mg Documented By: Admin: 04/16/25 09:03 Dose: 1,000 mg Documented By: Admin: 04/15/25 20:31 Dose: 1,000 mg Documented By: Admin: 04/15/25 08:13 Dose: 1,000 mg Documented By: Admin: 04/14/25 21:09 Dose: 1,000 mg Documented By: Admin: 04/14/25 10:24 Dose: 1,000 mg Documented By: Admin: 04/13/25 23:15 Dose: 1,000 mg Documented By: SM Lorazepam (Lorazepam 0.5 Mg Tablet) 0.5 mg GT Q6HR PRN PRN Reason: anxiety Stop: 04/24/25 14:56 Last Admin: 04/20/25 07:27 Dose: 0.5 mg Documented By: Admin: 04/19/25 21:45 Dose: 0.5 mg Documented By: BOUBACAR Midodrine (Midodrine 5 Mg Tablet) 10 mg GT TID KIT Stop: 05/13/25 22:44 Last Admin: 04/23/25 21:25 Dose: 10 mg Documented By: Admin: 04/23/25 14:25 Dose: 10 mg Documented By: Admin: 04/23/25 05:42 Dose: 10 mg Documented By: Admin: 04/22/25 23:14 Dose: 10 mg Documented By: Admin: 04/22/25 14:53 Dose: 10 mg Documented By: Admin: 04/22/25 05:16 Dose: 10 mg Documented By: Admin: 04/21/25 22:03 Dose: 10 mg Documented By: Admin: 04/21/25 14:50 Dose: 10 mg Documented By: Admin: 04/21/25 05:27 Dose: 10 mg Documented By: Admin: 04/20/25 21:28 Dose: 10 mg Documented By: Admin: 04/20/25 15:04 Dose: Not Given Documented By: WL Non-Admin Reason: b/p 144/47 Admin: 04/20/25 06:17 Dose: 10 mg Documented By: Admin: 04/19/25 21:34 Dose: 10 mg Documented By: Admin: 04/19/25 13:37 Dose: 10 mg Documented By: Admin: 04/19/25 06:12 Dose: 10 mg Documented By: Admin: 04/18/25 21:48 Dose: 10 mg Documented By: Admin: 04/18/25 13:30 Dose: 10 mg Documented By: Admin: 04/18/25 05:56 Dose: 10 mg Documented By: Admin: 04/17/25 21:38 Dose: 10 mg Documented By: Admin: 04/17/25 14:07 Dose: 10 mg Documented By: Admin: 04/17/25 05:23 Dose: 10 mg Documented By: Admin: 04/16/25 21:41 Dose: 10 mg Documented By: Admin: 04/16/25 13:21 Dose: 10 mg Documented By: Admin: 04/16/25 06:06 Dose: 10 mg Documented By: MLÁlvaro Admin: 04/15/25 21:10 Dose: 10 mg Documented By: MLÁlvaro Admin: 04/15/25 13:34 Dose: 10 mg Documented By: Admin: 04/15/25 05:03 Dose: 10 mg Documented By: Admin: 04/14/25 21:09 Dose: 10 mg Documented By: Admin: 04/14/25 13:27 Dose: 10 mg Documented By: Admin: 04/14/25 06:31 Dose: 10 mg Documented By: Admin: 04/13/25 22:59 Dose: 10 mg Documented By: KANCHAN Ondansetron HCl (Ondansetron Inj 2 Mg/Ml Inj 2 Ml) 4 mg IVP Q6H PRN; Protocol PRN Reason: NAUSEA OR VOMITING Stop: 05/13/25 21:41 Phenytoin (Phenytoin 100 Mg/4 Ml Udc) 600 mg GT BID KIT Stop: 05/19/25 20:59 Last Admin: 04/23/25 21:23 Dose: 600 mg Documented By: Admin: 04/23/25 10:15 Dose: 600 mg Documented By: Admin: 04/22/25 21:53 Dose: 600 mg Documented By: Admin: 04/22/25 09:05 Dose: 600 mg Documented By: Admin: 04/21/25 20:46 Dose: 600 mg Documented By: Admin: 04/21/25 10:00 Dose: 600 mg Documented By: Admin: 04/20/25 21:26 Dose: 600 mg Documented By: Admin: 04/20/25 08:35 Dose: 600 mg Documented By: Admin: 04/19/25 21:33 Dose: 600 mg Documented By: BOUBACAR Polyethylene Glycol (Polyethylene Glycol 17 Gm Packet) 17 gm GT QDAY KIT Stop: 05/19/25 10:29 Last Admin: 04/23/25 10:23 Dose: 17 gm Documented By: Admin: 04/22/25 09:06 Dose: 17 gm Documented By: Admin: 04/21/25 09:59 Dose: 17 gm Documented By: Admin: 04/20/25 08:36 Dose: 17 gm Documented By: Admin: 04/19/25 13:36 Dose: Not Given Documented By: DEVYN Non-Admin Reason: Pt had BM yesterday Sodium Chloride (Sodium Chloride 0.9% Flush 10 Ml Syringe) 5 ml IVP Q8HR KIT Stop: 05/13/25 21:59 Last Admin: 04/23/25 21:24 Dose: 5 ml Documented By: Admin: 04/23/25 14:08 Dose: 5 ml Documented By: Admin: 04/23/25 05:43 Dose: 5 ml Documented By: Admin: 04/22/25 21:45 Dose: 5 ml Documented By: Admin: 04/22/25 15:19 Dose: 5 ml Documented By: Admin: 04/22/25 05:17 Dose: 5 ml Documented By: Admin: 04/21/25 22:04 Dose: 5 ml Documented By: Admin: 04/21/25 14:16 Dose: 5 ml Documented By: Admin: 04/21/25 05:27 Dose: 5 ml Documented By: Admin: 04/20/25 21:27 Dose: 5 ml Documented By: CMC Comments: central line was not d/c Admin: 04/20/25 15:03 Dose: Not Given Documented By: MARGUERITE Non-Admin Reason: iv fluids running Admin: 04/20/25 06:26 Dose: 5 ml Documented By: Admin: 04/19/25 21:39 Dose: 5 ml Documented By: Admin: 04/19/25 14:07 Dose: 5 ml Documented By: Admin: 04/19/25 06:12 Dose: 5 ml Documented By: Admin: 04/18/25 21:51 Dose: 5 ml Documented By: VR Comments: 5ml syringe does not scan Admin: 04/18/25 13:33 Dose: 5 ml Documented By: Admin: 04/18/25 05:57 Dose: 5 ml Documented By: BOUBACAR Comments: BARCODE NOT SCANNING 5ML SYRINGE Admin: 04/17/25 21:39 Dose: 5 ml Documented By: Admin: 04/17/25 14:07 Dose: 5 ml Documented By: Admin: 04/17/25 05:26 Dose: 5 ml Documented By: Admin: 04/16/25 21:45 Dose: 5 ml Documented By: Admin: 04/16/25 13:30 Dose: 5 ml Documented By: Admin: 04/16/25 06:10 Dose: 5 ml Documented By: Admin: 04/15/25 21:10 Dose: 5 ml Documented By: Admin: 04/15/25 13:38 Dose: 5 ml Documented By: Admin: 04/15/25 05:04 Dose: 5 ml Documented By: Admin: 04/14/25 21:37 Dose: 5 ml Documented By: ANN Sodium Hypochlorite (Sod Hypochlorite 1/4 Str 473 Ml Btl) 473 ml IRRIG BID KIT Stop: 05/14/25 20:59 Last Admin: 04/23/25 21:24 Dose: 1 applicatio Documented By: Admin: 04/23/25 10:25 Dose: 1 applicatio Documented By: Admin: 04/22/25 21:53 Dose: 1 applicatio Documented By: Admin: 04/22/25 12:25 Dose: 1 applicatio Documented By: Admin: 04/21/25 20:46 Dose: 1 applicatio Documented By: Admin: 04/21/25 10:01 Dose: 1 applicatio Documented By: Admin: 04/20/25 21:27 Dose: 1 applicatio Documented By: Admin: 04/20/25 08:37 Dose: 473 applicatio Documented By: Admin: 04/19/25 21:39 Dose: 1 applicatio Documented By: Admin: 04/19/25 08:37 Dose: 1 applicatio Documented By: Admin: 04/18/25 21:49 Dose: 1 applicatio Documented By: Admin: 04/18/25 13:30 Dose: 1 applicatio Documented By: Admin: 04/17/25 21:40 Dose: 1 applicatio Documented By: Admin: 04/17/25 11:09 Dose: 1 applicatio Documented By: Admin: 04/16/25 21:45 Dose: 1 applicatio Documented By: Admin: 04/16/25 09:05 Dose: 1 applicatio Documented By: Admin: 04/15/25 20:32 Dose: 1 applicatio Documented By: Admin: 04/15/25 08:15 Dose: 1 applicatio Documented By: Admin: 04/14/25 21:40 Dose: 473 ml Documented By: ANN Sodium Phosphate (Sodium Phos,Lamb-Dibasic 133 Ml (Fleet) Enema Btl) 133 ml RC PRN PRN; Protocol PRN Reason: No BM Per Bowel Management Protocol Discontinued Medications Bisacodyl (Bisacodyl 10 Mg Supp) 10 mg MN PRN PRN; Protocol PRN Reason: No BM Per Bowel Management Protocol Stop: 05/19/25 08:10 Glycerin (Glycerin, Adult 1 Ea Supp) 1 each MN X1 ONE Stop: 04/21/25 16:42 Last Admin: 04/21/25 17:43 Dose: 1 each Documented By: MG Heparin Sodium (Porcine) (Heparin Sod Inj 5000 Unit/Ml Vial) 5,000 unit SC Q12HR KIT Stop: 04/28/25 08:59 Sodium Chloride (Ns) 1,000 mls @ 999 mls/hr IV .Q1H1M ONE Stop: 04/13/25 17:18 Last Infusion: 04/13/25 17:42 Dose: Infused Documented By: Admin: 04/13/25 16:36 Dose: 999 mls/hr Documented By: KAILEY Piperacillin Sod/Tazobactam (Sod 4.5 gm/ Sodium Chloride) 100 mls @ 200 mls/hr IV X1 ONE Stop: 04/13/25 22:29 Last Infusion: 04/13/25 22:40 Dose: Infused Documented By: Admin: 04/13/25 21:59 Dose: 200 mls/hr Documented By: KANCHAN Vancomycin/Sodium Chloride (Vancomycin/Ns 1 Gm Ivpb) 200 mls @ 120 mls/hr IV X1 ONE Stop: 04/13/25 23:39 Last Infusion: 04/14/25 00:30 Dose: Infused Documented By: Admin: 04/13/25 22:43 Dose: 120 mls/hr Documented By: JC(2) Vancomycin HCl (Vancomycin/Water 1250 Mg Ivpb) 250 mls @ 120 mls/hr IV Q24H KIT Stop: 04/21/25 21:59 Last Infusion: 04/15/25 00:38 Dose: Infused Documented By: Admin: 04/14/25 22:33 Dose: 120 mls/hr Documented By: ANN Piperacillin/Tazobactam/Dextrose (Zosyn) 3.375 gm in 50 mls @ 12.5 mls/hr IV Q8HR KIT Stop: 04/21/25 07:14 Last Admin: 04/14/25 08:03 Dose: 12.5 mls/hr Documented By: ROMAIN Meropenem 1,000 mg/ Sodium (Chloride) 50 mls @ 100 mls/hr IV Q12HR KIT Stop: 04/21/25 20:59 Last Infusion: 04/21/25 10:29 Dose: Infused Documented By: Admin: 04/21/25 09:59 Dose: 100 mls/hr Documented By: Infusion: 04/20/25 21:56 Dose: Infused Documented By: Admin: 04/20/25 21:26 Dose: 100 mls/hr Documented By: Infusion: 04/20/25 09:05 Dose: Infused Documented By: Admin: 04/20/25 08:35 Dose: 100 mls/hr Documented By: Infusion: 04/19/25 22:04 Dose: Infused Documented By: Admin: 04/19/25 21:34 Dose: 100 mls/hr Documented By: Infusion: 04/19/25 09:08 Dose: Infused Documented By: Admin: 04/19/25 08:38 Dose: 100 mls/hr Documented By: Infusion: 04/18/25 22:18 Dose: Infused Documented By: Admin: 04/18/25 21:48 Dose: 100 mls/hr Documented By: Infusion: 04/18/25 09:46 Dose: Infused Documented By: Admin: 04/18/25 09:16 Dose: 100 mls/hr Documented By: Infusion: 04/17/25 22:08 Dose: Infused Documented By: Admin: 04/17/25 21:38 Dose: 100 mls/hr Documented By: Infusion: 04/17/25 10:27 Dose: Infused Documented By: Admin: 04/17/25 09:57 Dose: 100 mls/hr Documented By: Infusion: 04/16/25 22:10 Dose: Infused Documented By: Admin: 04/16/25 21:40 Dose: 100 mls/hr Documented By: Infusion: 04/16/25 09:34 Dose: Infused Documented By: Admin: 04/16/25 09:04 Dose: 100 mls/hr Documented By: Infusion: 04/15/25 21:00 Dose: Infused Documented By: Admin: 04/15/25 20:28 Dose: 100 mls/hr Documented By: Infusion: 04/15/25 08:40 Dose: Infused Documented By: MLÁlvaro Admin: 04/15/25 08:10 Dose: 100 mls/hr Documented By: Infusion: 04/14/25 21:39 Dose: Infused Documented By: Admin: 04/14/25 21:09 Dose: 100 mls/hr Documented By: ANN Lactated Ringer's (Lactated Ringers) 1,000 mls @ 100 mls/hr IV .Q10H KIT Stop: 05/14/25 10:13 Last Admin: 04/16/25 06:06 Dose: 100 mls/hr Documented By: Infusion: 04/16/25 05:11 Dose: Infused Documented By: Admin: 04/15/25 19:11 Dose: 100 mls/hr Documented By: Infusion: 04/15/25 18:15 Dose: Infused Documented By: Admin: 04/15/25 08:15 Dose: 100 mls/hr Documented By: Infusion: 04/15/25 07:38 Dose: Infused Documented By: Admin: 04/14/25 21:38 Dose: 100 mls/hr Documented By: Infusion: 04/14/25 21:38 Dose: Infused Documented By: Admin: 04/14/25 12:24 Dose: 100 mls/hr Documented By: JACKELIN Vancomycin/Sodium Chloride (Vancomycin/Ns 1 Gm Ivpb) 200 mls @ 120 mls/hr IV Q24H KIT; Protocol Stop: 04/22/25 21:59 Last Admin: 04/17/25 00:12 Dose: Not Given Documented By: JC Non-Admin Reason: Per Protocol Infusion: 04/15/25 22:50 Dose: Infused Documented By: Admin: 04/15/25 21:09 Dose: 120 mls/hr Documented By: MLD Lactated Ringer's (Lactated Ringers) 1,000 mls @ 120 mls/hr IV .Q8H20M KIT Stop: 05/16/25 08:30 Last Admin: 04/16/25 09:04 Dose: 120 mls/hr Documented By: DL Dextrose (D5w) 1,000 mls @ 100 mls/hr IV .Q10H KIT Stop: 05/16/25 10:44 Last Admin: 04/16/25 12:34 Dose: 100 mls/hr Documented By: DL Dextrose (D5w) 1,000 mls @ 120 mls/hr IV .Q8H20M KIT Stop: 05/16/25 18:25 Last Admin: 04/18/25 00:27 Dose: 120 mls/hr Documented By: Infusion: 04/17/25 23:24 Dose: Infused Documented By: Admin: 04/17/25 15:04 Dose: 120 mls/hr Documented By: Infusion: 04/17/25 13:52 Dose: Infused Documented By: Admin: 04/17/25 05:32 Dose: 120 mls/hr Documented By: Infusion: 04/17/25 05:10 Dose: Infused Documented By: Admin: 04/16/25 20:50 Dose: 120 mls/hr Documented By: Infusion: 04/16/25 20:50 Dose: Infused Documented By: Admin: 04/16/25 18:32 Dose: 120 mls/hr Documented By: DL Dextrose (D5w) 1,000 mls @ 60 mls/hr IV .[id number] [facility] Stop: 05/18/25 08:15 Last Admin: 04/19/25 02:38 Dose: 60 mls/hr Documented By: Infusion: 04/19/25 01:57 Dose: Infused Documented By: Admin: 04/18/25 09:16 Dose: 60 mls/hr Documented By: TD Lactated Ringer's (Lactated Ringers) 1,000 mls @ 70 mls/hr IV .[id number] ONE Stop: 04/20/25 21:55 Last Admin: 04/20/25 08:36 Dose: 70 mls/hr Documented By: MARGUERITE Lactated Ringer's (Lactated Ringers) 1,000 mls @ 999 mls/hr IV .Q1H1M ONE Stop: 04/20/25 16:32 Last Admin: 04/20/25 15:53 Dose: 999 mls/hr Documented By: MARGUERITE Dextrose (D5w) 1,000 mls @ 60 mls/hr IV .[id number] [facility] Stop: 04/22/25 00:54 Last Admin: 04/21/25 17:44 Dose: Not Given Documented By: MG Non-Admin Reason: freewater flush Vancomycin/Sodium Chloride (Vancomycin/Ns 1 Gm Ivpb) 200 mls @ 120 mls/hr IV X1 ONE Stop: 04/21/25 18:54 Last Admin: 04/21/25 19:22 Dose: 120 mls/hr Documented By: CMC Dextrose (D5w) 500 mls @ 75 mls/hr IV .Q6H40M [facility] Stop: 04/22/25 14:54 Last Admin: 04/22/25 09:10 Dose: 75 mls/hr Documented By: JACKELIN Ceftazidime/Avibactam 2 gm/ (Sodium Chloride) 100 mls @ 50 mls/hr IV Q12HR [facility] Stop: 04/29/25 11:14 Last Admin: 04/23/25 07:12 Dose: Not Given Documented By: AC Non-Admin Reason: Discontinued Ceftazidime/Avibactam 2.5 gm/ (Sodium Chloride) 100 mls @ 50 mls/hr IV Q12HR [facility] Stop: 04/29/25 11:14 Lorazepam (Lorazepam 2 Mg/Ml Vial) 2 mg IVP X1 ONE Stop: 04/13/25 17:32 Last Admin: 04/13/25 17:41 Dose: 2 mg Documented By: GM Lorazepam (Lorazepam 2 Mg/Ml Vial) 2 mg IVP Q30M PRN PRN Reason: Breakthrough Seizure Stop: 04/18/25 21:50 Lorazepam (Lorazepam 2 Mg/Ml Vial) 2 mg IVP X1 ONE Stop: 04/19/25 14:58 Last Admin: 04/19/25 15:15 Dose: 2 mg Documented By: DEVYN Lorazepam (Lorazepam 2 Mg/Ml Vial) 1 mg IVP X1 ONE Stop: 04/20/25 12:41 Last Admin: 04/20/25 12:45 Dose: 1 mg Documented By: MARGUERITE Morphine Sulfate (Morphine Sulf Inj 10 Mg/Ml Vial) 2 mg IVP X1 ONE Stop: 04/19/25 06:10 Last Admin: 04/19/25 06:11 Dose: 2 mg Documented By: BOUBACAR Morphine Sulfate (Morphine Sulf Inj 10 Mg/Ml Vial) Confirm Administered Dose 10 mg .ROUTE .STK-MED ONE Stop: 04/19/25 06:11 Last Admin: 04/19/25 06:53 Dose: Not Given Documented By: BOUBACAR Non-Admin Reason: TASK DUPLICATION Morphine Sulfate (Morphine Sulf Inj 10 Mg/Ml Vial) 1 mg IVP X1 ONE Stop: 04/19/25 14:03 Last Admin: 04/19/25 14:06 Dose: 1 mg Documented By: DEVYN Morphine Sulfate (Morphine Sulf Inj 10 Mg/Ml Vial) 2 mg IVP X1 ONE Stop: 04/20/25 16:54 Last Admin: 04/20/25 17:44 Dose: 2 mg Documented By: MARGUERITE Non-Formulary Medication (Pantoprazole) 40 mg GT QDAY [facility] Stop: 05/14/25 08:59 Pantoprazole Sodium (Pantoprazole Inj 40 Mg Vial) 40 mg IVP QDAY KIT Stop: 05/14/25 08:59 Last Admin: 04/15/25 08:13 Dose: 40 mg Documented By: Admin: 04/14/25 10:25 Dose: 40 mg Documented By: ROMAIN Pharmacy Consult (Vancomycin Pharmacy To Dose 1 Each Each) 1 each IV QDAY PRN PRN Reason: RX Stop: 05/14/25 08:59 Sodium Chloride (Sodium Chloride 0.9% Flush 10 Ml Syringe) 5 ml IVP Q8HR KIT Stop: 05/13/25 21:59 Last Admin: 04/14/25 13:59 Dose: 5 ml Documented By: Admin: 04/14/25 06:32 Dose: 5 ml Documented By: Admin: 04/13/25 23:40 Dose: 5 ml Documented By: KANCHAN Sodium Chloride (Sodium Chloride Rt 10% 15 Ml Nebu) 5 ml INH X1 ONE Stop: 04/14/25 00:21 Last Admin: 04/14/25 01:46 Dose: Not Given Documented By: SUNNY Non-Admin Reason: medication not needed to collect sputum Sodium Chloride (Sodium Chloride Rt 10% 15 Ml Nebu) 5 ml INH X1 ONE Stop: 04/21/25 16:57 Last Admin: 04/23/25 07:07 Dose: Not Given Documented By: ELDER Non-Admin Reason: Discontinued see above Consultations Consultation(s) initiated? (list below): Yes Consultation #1 (Physician, Specialty, Details): Discussed case with the resident physician, attending Dr. Jenkins from Hospitalist service regarding admission. Discussed patients ED course, exam findings, labs, and radiology results. The Hospitalist agrees to accept the patient for admission. Diagnosis Recheck Differential Diagnosis: other (sepsis, pneumonia, dehydration, COVID, Influenza, viral syndrome) Most likely diagnosis given after review of the tests above:: see clinical impression below Admission Indicated Admission indicated?: indicated Admission Request Was there a request for admission?: Yes Admission Attestation Admission request attestation: Discussed case with [] from Hospitalist service regarding admission. Discussed patients ED course, exam findings, labs, and radiology results. The Hospitalist [agrees,declines] to accept the patient for admission. Disposition Plan Disposition Plan: Admit Discharge Plan Plan Patient Disposition: Admit Acute Care w/in Hospital Patient condition on transfer: Stable Problem List Clinical Impression: Acute kidney failure, Pneumonia
--- NOTE | 2025-04-13 21:00 | PC.NURSE ---
PT TURNED TO LEFT SIDE
--- NOTE | 2025-04-13 21:55 | PD.RESHP ---
Documentation for date of: 04/13/25 Exam Vital Signs Temp Pulse Resp BP Pulse Ox O2 Del Method O2 Flow Rate 97.9 F 86 19 119/61 95 Mechanical Ventilation 40 04/13/25 20:24 04/13/25 20:24 04/13/25 20:24 04/13/25 20:24 04/13/25 20:24 04/13/25 20:24 04/13/25 20:24 FiO2 40 04/13/25 18:18 Results: Labs 04/13/25 14:37 04/13/25 14:37 Labs: Short CBC 04/13/25 Range/Units 14:37 WBC 18.9 H (3.8-10.6) Thou/mm3 Hgb 7.9 L (13.5-16.0) g/dL Hct 26.9 L (41.0-53.0) % Plt Count 402 (140-440) Thou/mm3 BMP 04/13/25 14:37 Sodium 149 H Potassium 4.4 Chloride 114 H Carbon Dioxide 26.1 BUN 102 H* Creatinine 3.4 H Glucose 357 H D Calcium 8.9 Cardiac Enzymes 04/13/25 Range/Units 14:37 Troponin I < 0.002 (0.0-0.045) ng/mL Liver Function 04/13/25 Range/Units 14:37 Total Bilirubin 0.2 L (0.3-1.2) mg/dL AST 63 H (0-34) U/L ALT 195 H (10-49) U/L Alkaline Phosphatase 630 H D (46-116) U/L Albumin 3.5 (3.5-5.0) gm/dL Urine 04/13/25 Range/Units 16:16 Urine Color Yellow (Lt Yel-Yel) Urine Clarity Turbid A (Clear/Hazy) Urine pH 8.0 H (5.0-7.0) Ur Specific [place] 1.016 (1.001-1.035) Urine Protein 2+ A (Neg - Trace) Urine Glucose (UA) 3+ A (Negative) Medications Home Medications and Allergies Home Medications ?Medication ?Instructions ?Recorded ?Confirmed ?Type acetaminophen 325 mg tablet 325 mg G-tube Q6HR PRN Pain 02/22/25 04/13/25 History albuterol sulfate 2.5 mg/3 mL 2.5 mg INH Q6HRRT PRN SOB or 02/22/25 04/13/25 History (0.083 %) solution for nebulization wheezing baclofen 10 mg tablet 5 mg G-tube TID 02/22/25 04/13/25 History bisacodyl 10 mg rectal suppository 10 mg NE PRN PRN No BM Per Bowel 02/22/25 04/13/25 History (Dulcolax (bisacodyl)) Management Protocol carbamide peroxide 6.5 % ear drops 5 drp otic (ear) Q61D 02/22/25 04/13/25 History (Ear Wax Removal Drops) carbamide peroxide 6.5 % ear drops 5 drp otic (ear) Q61D 02/22/25 04/13/25 History (Ear Wax Removal Drops) carbamide peroxide 6.5 % ear drops 5 drp otic (ear) Q61D 02/22/25 04/13/25 History (Ear Wax Removal Drops) carbamide peroxide 6.5 % ear drops 5 drp otic (ear) Q61D 02/22/25 04/13/25 History (Ear Wax Removal Drops) carbamide peroxide 6.5 % ear drops 5 drp otic (ear) Q61D 02/22/25 04/13/25 History (Ear Wax Removal Drops) carbamide peroxide 6.5 % ear drops 5 drp otic (ear) Q61D 02/22/25 04/13/25 History (Ear Wax Removal Drops) carbamide peroxide 6.5 % ear drops 5 drp otic (ear) Q61D 02/22/25 04/13/25 History (Ear Wax Removal Drops) carbamide peroxide 6.5 % ear drops 5 drp otic (ear) Q61D 02/22/25 04/13/25 History (Ear Wax Removal Drops) ipratropium 0.5 mg-albuterol 3 mg 3 ml INH Q6HRRT 02/22/25 04/13/25 History (2.5 mg base)/3 mL nebulization soln lorazepam 0.5 mg tablet 0.5 mg G-tube Q6HR PRN anxiety 02/22/25 04/13/25 History lorazepam 2 mg/mL injection 2 mg IM [id number] PRN Seizure 02/22/25 04/13/25 History solution Activity magnesium hydroxide 400 mg/5 mL 30 ml G-tube PRN PRN Constipation 02/22/25 04/13/25 History oral suspension (Milk of Magnesia) metoclopramide HCl 5 mg tablet 5 mg G-tube TID 02/22/25 04/13/25 History midodrine 10 mg tablet 10 mg G-tube TID 02/22/25 04/13/25 History [id number] 1 ea G-tube QDAY 02/22/25 04/13/25 History fumarate 7.5 mg-folic acid 400 mcg tablet pantoprazole 40 mg granules 40 mg G-tube QDAY 02/22/25 04/13/25 History delayed-release for susp in packet polyethylene glycol 3350 17 gram 17 g G-tube PRN PRN No BM Per 02/22/25 04/13/25 History oral powder packet Bowel Management Protocol sodium phosphates 19 gram-7 133 ml NE PRN PRN No BM Per Bowel 02/22/25 04/13/25 History gram/118 mL enema (Fleet Enema) Management Protocol Allergies Allergy/AdvReac Type Severity Reaction Status Date / Time No Known Allergies Allergy Verified 01/11/25 11:40 Visit Medications Acetaminophen (Acetaminophen Lala 325 Mg/10 Ml Udc) 325 mg GT Q4HR PRN PRN Reason: Pain 1-3 Or Fever > 101 Stop: 05/13/25 21:44 Artificial Tears (Artificial Tears 225 Drop/15 Ml Btl) 1 drop BOTH EYES BID KIT Stop: 05/14/25 08:59 Baclofen (Baclofen 10 Mg Tablet) 5 mg GT TID KIT Stop: 05/13/25 21:59 Carbamide Peroxide (Carbamide Peroxide Otic Lala 15 Ml Btl) 5 drop BOTH EARS Q61D KIT Stop: 05/13/25 21:59 Heparin Sodium (Porcine) (Heparin Sod Inj 5000 Unit/Ml Vial) 5,000 unit SC Q12HR KIT Stop: 04/28/25 08:59 Piperacillin Sod/Tazobactam (Sod 4.5 gm/ Sodium Chloride) 100 mls @ 200 mls/hr IV Q8HR KIT Stop: 04/20/25 21:59 Piperacillin Sod/Tazobactam (Sod 4.5 gm/ Sodium Chloride) 100 mls @ 200 mls/hr IV X1 ONE Stop: 04/13/25 22:29 Levetiracetam (Levetiracetam Liqd 500 Mg/5 Ml Ud) 1,000 mg GT BID KIT Stop: 05/13/25 21:59 Lorazepam (Lorazepam 2 Mg/Ml Vial) 2 mg IVP Q30M PRN PRN Reason: Breakthrough Seizure Stop: 04/18/25 21:50 Non-Formulary Medication (Pantoprazole) 40 mg GT QDAY KIT Stop: 05/14/25 08:59 Non-Formulary Medication (Fludrocortisone) 0.1 mg GT DAILY KIT Stop: 05/14/25 08:59 Non-Formulary Medication (Midodrine) 10 mg GT TID KIT Stop: 05/13/25 21:59 Ondansetron HCl (Ondansetron Inj 2 Mg/Ml Inj 2 Ml) 4 mg IVP Q6H PRN; Protocol PRN Reason: NAUSEA OR VOMITING Stop: 05/13/25 21:41 Pharmacy Consult (Vancomycin Pharmacy To Dose 1 Each Each) 1 each IV QDAY KIT Stop: 05/14/25 08:59 Sodium Chloride (Sodium Chloride 0.9% Flush 10 Ml Syringe) 5 ml IVP Q8HR KIT Stop: 05/13/25 21:59 Discontinued Medications Sodium Chloride (Ns) 1,000 mls @ 999 mls/hr IV .Q1H1M ONE Stop: 04/13/25 17:18 Last Infusion: 04/13/25 17:42 Dose: Infused Lorazepam (Lorazepam 2 Mg/Ml Vial) 2 mg IVP X1 ONE Stop: 04/13/25 17:32 Last Admin: 04/13/25 17:41 Dose: 2 mg
[2025-04-13] MEDS: PIPER/TAZO INJ 4.5 GM in SODIUM CHLORIDE 0.9% (POP) 100 ML IV (21:59)
--- NOTE | 2025-04-13 22:29 | EDNOTE_ITS ---
ED Fever RME/HPI General Chief Complaint: Recheck/Abnormal Lab/Rx Stated Complaint: ABNORMAL KIDNEY FUNCTION Time Seen by Provider: 04/13/25 14:17 Arrival date/time: 04/13/25 13:37 Related Data Home Medications ?Medication ?Instructions ?Recorded ?Confirmed acetaminophen 325 mg tablet 325 mg G-tube Q6HR PRN Jan n 02/22/25 04/13/25 albuterol sulfate 2.5 mg/3 mL 2.5 mg INH Q6HRRT PRN SO B or 02/22/25 04/13/25 (0.083 %) solution for nebulization wheezing baclofen 10 mg tablet 5 mg G-tube TID 02/22/2511/07 bisacodyl 10 mg rectal suppository 10 mg MS PRN PRN No BM Per Bowel 02/22/25 04/13/25 (Dulcolax (bisacodyl)) Management Protocol carbamide peroxide 6.5 % ear drops 5 drp otic (ear) Q6 1D 02/22/25 04/13/25 (Ear Wax Removal Drops) carbamide peroxide 6.5 % ear drops 5 drp otic (ear) Q6 1D 02/22/25 04/13/25 (Ear Wax Removal Drops) carbamide peroxide 6.5 % ear drops 5 drp otic (ear) Q6 1D 02/22/25 04/13/25 (Ear Wax Removal Drops) carbamide peroxide 6.5 % ear drops 5 drp otic (ear) Q6 1D 02/22/25 04/13/25 (Ear Wax Removal Drops) carbamide peroxide 6.5 % ear drops 5 drp otic (ear) Q6 1D 02/22/25 04/13/25 (Ear Wax Removal Drops) carbamide peroxide 6.5 % ear drops 5 drp otic (ear) Q6 1D 02/22/25 04/13/25 (Ear Wax Removal Drops) carbamide peroxide 6.5 % ear drops 5 drp otic (ear) Q6 1D 02/22/25 04/13/25 (Ear Wax Removal Drops) carbamide peroxide 6.5 % ear drops 5 drp otic (ear) Q6 1D 02/22/25 04/13/25 (Ear Wax Removal Drops) ipratropium 0.5 mg-albuterol 3 mg 3 ml INH Q6HRRT 02/1104/13/25 (2.5 mg base)/3 mL nebulization soln lorazepam 0.5 mg tablet 0.5 mg G-tube Q6HR PRN anxie ty 02/22/25 04/13/25 lorazepam 2 mg/mL injection 2 mg IM [id number] PRN Seizur e 02/22/25 04/13/25 solution Activity magnesium hydroxide 400 mg/5 mL 30 ml G-tube PRN PRN C onstipation 02/22/25 04/13/25 oral suspension (Milk of Magnesia) metoclopramide HCl 5 mg tablet 5 mg G-tube TID 5 04/13/25 midodrine 10 mg tablet 10 mg G-tube TID 02/22/25 [id number]-[id number] 1 ea G-tube QDAY 02/22/25 0 04/13/25 fumarate 7.5 mg-folic acid 400 mcg tablet pantoprazole 40 mg granules 40 mg G-tube QDAY 02/22/25 04/13/25 delayed-release for susp in packet polyethylene glycol 3350 17 gram 17 g G-tube PRN PRN N o BM Per 02/22/25 04/13/25 oral powder packet Bowel Management Protocol sodium phosphates 19 gram-7 133 ml MS PRN PRN No BM Pe r Bowel 02/22/25 04/13/25 gram/118 mL enema (Fleet Enema) Management Protocol Previous Rx's ?Medication ?Instructions ?Recorded sodium chloride 0.9 % (flush) 5 ml IVP Q8HR 80 days (Normal Saline Flush 0.9 % injection syringe) Fludrocortisone 0.1 mg G-tube DAILY #0.1 mg 03/24/25 Dilantin Cap 600 mg G-tube BID seizure 30 days 03/28/25 Held on 04/13/25. #600 mg Instructions: Hold 04/13/25 on Continuing Care Visit #[id number]. Non Formulary Medication 250 ea G-tube TID 67 days levetiracetam 100 mg/mL oral 1,000 mg (10 mL) G-tube B ID 30 04/08/25 solution days #300 mL artificial 1 drp Both eyes BID 30 days 04/13/25 tears([id number]) 0.1 %-0.3 %-0.2 % eye drops (GenTeal Tears Moderate) Allergies Allergy/AdvReac Type Severity Reaction Status Date / Time No Known Allergies Allergy Verified 01/11/25 11:40 Course Quality Measures none Orders Category Date Time Status COVID-19 Screening Questionnaire NOW Care 04/13/25 20:16 Active [employer] NOW Care 04/13/25 14:17 Active Decision to Admit X1 Care 04/13/25 20:16 Completed EKG (ED ONLY) *Do not use* NOW Care 04/13/25 14:17 Completed Miscellaneous Nursing Order NOW Care 04/13/25 15:45 Active Referral Wound Care Stat Cons 04/13/25 14:31 Active EKG (ED Only) Stat Exams 04/13/25 14:17 Draft XR chest 1V portable Stat Exams 04/13/25 14:17 Completed B-Type Natriuretic Peptide Stat Lab 04/13/25 14:37 Completed Blood Culture (Lab) Stat Lab 04/13/25 16:35 Received CBC Stat Lab 04/13/25 14:37 Completed Comprehensive Metabolic Panel Stat Lab 04/13/25 14:37 Completed Lactate (Lactic Acid) Stat Lab 04/13/25 16:33 Completed Lipase Stat Lab 04/13/25 14:37 Completed Magnesium Stat Lab 04/13/25 14:37 Completed Partial Thromboplastin Time Stat Lab 04/13/25 14:37 Completed Procalcitonin Stat Lab 04/13/25 16:33 Completed Prothrombin Time with INR Stat Lab 04/13/25 14:37 Completed Troponin I Stat Lab 04/13/25 14:37 Completed Urinalysis Stat Lab 04/13/25 16:16 Completed Urine Culture Stat Lab 04/13/25 16:16 Received LORazepam [Ativan Inj] Med 04/13/25 17:31 Discontinued 2 mg IVP X1 ONE Sodium Chloride 0.9% 1000 ml [Ns] 1,000 ml Med 04/13/25 16:18 Discontinued IV 999 mls/hr Vital Signs Vital signs: Vital Signs Pulse Rate 86 04/13/25 14:00 Pulse Oximetry (%) 98 04/13/25 14:00 Fraction of Inspired Oxygen 40 04/13/25 14:00 Fever MDM Narrative MDM Narrative:: 39 y/o M from subacute, s/p trach and peg tube who was brought here due to fevers. 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 Medications / Prescriptions Medications or Prescriptions considered but not ordered:: none Medication administrations:: Medication Administration History Acetaminophen (Acetaminophen Lala 325 Mg/10 Ml Udc) 325 mg GT Q4HR PRN PRN Reason: Pain 1-3 Or Fever > 101 Stop: 05/13/25 21:44 Apixaban (Apixaban 2.5 Mg Tablet) 5 mg GT BID [facility] Stop: 05/05/25 08:59 Artificial Tears (Artificial Tears 225 Drop/15 Ml Btl) 1 drop BOTH EYES BID KIT Stop: 05/14/25 08:59 Baclofen (Baclofen 10 Mg Tablet) 5 mg GT TID KIT Stop: 05/13/25 21:59 Last Admin: 04/13/25 23:14 Dose: 5 mg Documented By: KANCHAN Carbamide Peroxide (Carbamide Peroxide Otic Lala 15 Ml Btl) 5 drop BOTH EARS Q61D KIT Stop: 05/13/25 21:59 Last Admin: 04/13/25 23:38 Dose: 5 drops Documented By: KANCHAN Comments: 5 DROPS Fludrocortisone Acetate (Fludrocortisone Acetate 0.1 Mg Tablet) 0.1 mg GT DAILY [facility] Stop: 05/14/25 08:59 Piperacillin Sod/Tazobactam (Sod 4.5 gm/ Sodium Chloride) 100 mls @ 200 mls/hr IV Q8HR KIT Stop: 04/20/25 21:59 Levetiracetam (Levetiracetam Liqd 500 Mg/5 Ml Udc) 1,000 mg GT BID [facility] Stop: 05/13/25 21:59 Last Admin: 04/13/25 23:15 Dose: 1,000 mg Documented By: KANCHAN Lorazepam (Lorazepam 2 Mg/Ml Vial) 2 mg IVP Q30M PRN PRN Reason: Breakthrough Seizure Stop: 04/18/25 21:50 Midodrine (Midodrine 5 Mg Tablet) 10 mg GT TID [facility] Stop: 05/13/25 22:44 Last Admin: 04/13/25 22:59 Dose: 10 mg Documented By: KANCHAN Ondansetron HCl (Ondansetron Inj 2 Mg/Ml Inj 2 Ml) 4 mg IVP Q6H PRN; Protocol PRN Reason: NAUSEA OR VOMITING Stop: 05/13/25 21:41 Pantoprazole Sodium (Pantoprazole Inj 40 Mg Vial) 40 mg IVP QDAY [facility] Stop: 05/14/25 08:59 Pharmacy Consult (Vancomycin Pharmacy To Dose 1 Each Each) 1 each IV QDAY [facility] Stop: 05/14/25 08:59 Sodium Chloride (Sodium Chloride 0.9% Flush 10 Ml Syringe) 5 ml IVP Q8HR [facility] Stop: 05/13/25 21:59 Last Admin: 04/13/25 23:40 Dose: 5 ml Documented By: KANCHAN Discontinued Medications Heparin Sodium (Porcine) (Heparin Sod Inj 5000 Unit/Ml Vial) 5,000 unit SC Q12HR [facility] Stop: 04/28/25 08:59 Sodium Chloride (Ns) 1,000 mls @ 999 mls/hr IV .Q1H1M ONE Stop: 04/13/25 17:18 Last Infusion: 04/13/25 17:42 Dose: Infused Documented By: Admin: 04/13/25 16:36 Dose: 999 mls/hr Documented By: KAILEY Piperacillin Sod/Tazobactam (Sod 4.5 gm/ Sodium Chloride) 100 mls @ 200 mls/hr IV X1 ONE Stop: 04/13/25 22:29 Last Infusion: 04/13/25 22:40 Dose: Infused Documented By: Admin: 04/13/25 21:59 Dose: 200 mls/hr Documented By: KANCHAN Vancomycin/Sodium Chloride (Vancomycin/Ns 1 Gm Ivpb) 200 mls @ 120 mls/hr IV X1 ONE Stop: 04/13/25 23:39 Last Infusion: 04/14/25 00:30 Dose: Infused Documented By: Admin: 04/13/25 22:43 Dose: 120 mls/hr Documented By: JC Lorazepam (Lorazepam 2 Mg/Ml Vial) 2 mg IVP X1 ONE Stop: 04/13/25 17:32 Last Admin: 04/13/25 17:41 Dose: 2 mg Documented By: GM Non-Formulary Medication (Pantoprazole) 40 mg GT QDAY KIT Stop: 05/14/25 08:59 Sodium Chloride (Sodium Chloride Rt 10% 15 Ml Nebu) 5 ml INH X1 ONE Stop: 04/14/25 00:21 see above Consultations Consultation(s) initiated? (list below): No Diagnosis Fever Differential Diagnosis: fever of unknown origin and community acquired pneumonia Most likely diagnosis given after review of the tests above:: Pneumonia Admission Indicated Admission indicated?: indicated Admission Request Was there a request for admission?: Yes Admission Attestation Admission request attestation: Discussed case with [] from Hospitalist service regarding admission. Discussed patients ED course, exam findings, labs, and radiology results. The Hospitalist [agrees,declines] to accept the patient for admission. Disposition Plan Disposition Plan: Admit Discharge Plan Plan Patient Disposition: Admit Acute Care w/in Hospital Problem List Clinical Impression: Acute kidney failure, Pneumonia
--- NOTE | 2025-04-13 22:36 | PD.RESHP ---
Documentation for date of: 04/13/25 [facility] History of Present Illness Chief complaint: Fever History of present illness: 39-year-old male with a past medical history of 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, status post tracheostomy, mechanical ventilation, PEG tube, suprapubic catheter, right nephrostomy tube due to obstructive uropathy, and bilateral upper extremity DVT, presented to [facility] from in-house subacute for fever. History unable to be obtained as the patient's status as noted above. In the ED, patient presented with unremarkable intervals, leukocytosis that with WBC of 18.9, hemoglobin of 7.9 with MCV of 97, sodium 149, chloride 114, BUN 102, creatinine 2.4, EGFR 22, elevated liver function, troponin and BNP within normal limits and Pro-Chuck elevated at 1.67. Urinalysis did not show positive nitrites positive leukocyte Estrace and +1 bacteria. Phenytoin levels were elevated at greater than 40. Chest x-ray showed bibasilar and right middle lobe pneumonia Patient will be admitted for IV antibiotics for treatment of ventilator associated pneumonia. Exam Vital Signs Temp Pulse Resp BP Pulse Ox O2 Del Method O2 Flow Rate 97.9 F 86 19 119/61 95 Mechanical Ventilation 40 04/13/25 20:24 04/13/25 20:24 04/13/25 20:24 04/13/25 20:24 04/13/25 20:24 04/13/25 20:24 04/13/25 20:24 FiO2 40 04/13/25 18:18 Narrative Exam Physical Exam: GENERAL: Trach & peg HEENT: NC/AT. Moist mucosa. PERRLA/EOMI. CARDIO: Heart RRR, no obvious murmurs, no JVD. PULM: Mechanical breath sounds heard bilaterally GI: Abdomen soft, NT/ND, +BS. URO/FRIT MIXER AND BURNER: +Lal catheter SKIN/MSK/EXT: Sacral wounds Grade III. No discoloration/rashes/edema/amputations. +Pedal pulses present B/L. NEURO: Oriented x0 Results: Labs 04/13/25 14:37 04/13/25 14:37 Labs: Short CBC 04/13/25 Range/Units 14:37 WBC 18.9 H (3.8-10.6) Thou/mm3 Hgb 7.9 L (13.5-16.0) g/dL Hct 26.9 L (41.0-53.0) % Plt Count 402 (140-440) Thou/mm3 BMP 04/13/25 14:37 Sodium 149 H Potassium 4.4 Chloride 114 H Carbon Dioxide 26.1 BUN 102 H* Creatinine 3.4 H Glucose 357 H D Calcium 8.9 Cardiac Enzymes 04/13/25 Range/Units 14:37 Troponin I < 0.002 (0.0-0.045) ng/mL Liver Function 04/13/25 Range/Units 14:37 Total Bilirubin 0.2 L (0.3-1.2) mg/dL AST 63 H (0-34) U/L ALT 195 H (10-49) U/L Alkaline Phosphatase 630 H D (46-116) U/L Albumin 3.5 (3.5-5.0) gm/dL Urine 04/13/25 Range/Units 16:16 Urine Color Yellow (Lt Yel-Yel) Urine Clarity Turbid A (Clear/Hazy) Urine pH 8.0 H (5.0-7.0) Ur Specific [place] 1.016 (1.001-1.035) Urine Protein 2+ A (Neg - Trace) Urine Glucose (UA) 3+ A (Negative) Quality Measures Quality Measures VTE prophylaxis Medications Home Medications and Allergies Home Medications ?Medication ?Instructions ?Recorded ?Confirmed ?Type acetaminophen 325 mg tablet 325 mg G-tube Q6HR PRN Pain 02/22/25 04/13/25 History albuterol sulfate 2.5 mg/3 mL 2.5 mg INH Q6HRRT PRN SOB or 02/22/25 04/13/25 History (0.083 %) solution for nebulization wheezing baclofen 10 mg tablet 5 mg G-tube TID 02/22/25 04/13/25 History bisacodyl 10 mg rectal suppository 10 mg MA PRN PRN No BM Per Bowel 02/22/25 04/13/25 History (Dulcolax (bisacodyl)) Management Protocol carbamide peroxide 6.5 % ear drops 5 drp otic (ear) Q61D 02/22/25 04/13/25 History (Ear Wax Removal Drops) carbamide peroxide 6.5 % ear drops 5 drp otic (ear) Q61D 02/22/25 04/13/25 History (Ear Wax Removal Drops) carbamide peroxide 6.5 % ear drops 5 drp otic (ear) Q61D 02/22/25 04/13/25 History (Ear Wax Removal Drops) carbamide peroxide 6.5 % ear drops 5 drp otic (ear) Q61D 02/22/25 04/13/25 History (Ear Wax Removal Drops) carbamide peroxide 6.5 % ear drops 5 drp otic (ear) Q61D 02/22/25 04/13/25 History (Ear Wax Removal Drops) carbamide peroxide 6.5 % ear drops 5 drp otic (ear) Q61D 02/22/25 04/13/25 History (Ear Wax Removal Drops) carbamide peroxide 6.5 % ear drops 5 drp otic (ear) Q61D 02/22/25 04/13/25 History (Ear Wax Removal Drops) carbamide peroxide 6.5 % ear drops 5 drp otic (ear) Q61D 02/22/25 04/13/25 History (Ear Wax Removal Drops) ipratropium 0.5 mg-albuterol 3 mg 3 ml INH Q6HRRT 02/22/25 04/13/25 History (2.5 mg base)/3 mL nebulization soln lorazepam 0.5 mg tablet 0.5 mg G-tube Q6HR PRN anxiety 02/22/25 04/13/25 History lorazepam 2 mg/mL injection 2 mg IM [id number] PRN Seizure 02/22/25 04/13/25 History solution Activity magnesium hydroxide 400 mg/5 mL 30 ml G-tube PRN PRN Constipation 02/22/25 04/13/25 History oral suspension (Milk of Magnesia) metoclopramide HCl 5 mg tablet 5 mg G-tube TID 02/22/25 04/13/25 History midodrine 10 mg tablet 10 mg G-tube TID 02/22/25 04/13/25 History lgknnkhqhtdi-kilclywl-aost 1 ea G-tube QDAY 02/22/25 04/13/25 History fumarate 7.5 mg-folic acid 400 mcg tablet pantoprazole 40 mg granules 40 mg G-tube QDAY 02/22/25 04/13/25 History delayed-release for susp in packet polyethylene glycol 3350 17 gram 17 g G-tube PRN PRN No BM Per 02/22/25 04/13/25 History oral powder packet Bowel Management Protocol sodium phosphates 19 gram-7 133 ml MA PRN PRN No BM Per Bowel 02/22/25 04/13/25 History gram/118 mL enema (Fleet Enema) Management Protocol Allergies Allergy/AdvReac Type Severity Reaction Status Date / Time No Known Allergies Allergy Verified 01/11/25 11:40 Visit Medications Acetaminophen (Acetaminophen Lala 325 Mg/10 Ml Udc) 325 mg GT Q4HR PRN PRN Reason: Pain 1-3 Or Fever > 101 Stop: 05/13/25 21:44 Artificial Tears (Artificial Tears 225 Drop/15 Ml Btl) 1 drop BOTH EYES BID KIT Stop: 05/14/25 08:59 Baclofen (Baclofen 10 Mg Tablet) 5 mg GT TID KIT Stop: 05/13/25 21:59 Carbamide Peroxide (Carbamide Peroxide Otic Lala 15 Ml Btl) 5 drop BOTH EARS Q61D KIT Stop: 05/13/25 21:59 Heparin Sodium (Porcine) (Heparin Sod Inj 5000 Unit/Ml Vial) 5,000 unit SC Q12HR KIT Stop: 04/28/25 08:59 Piperacillin Sod/Tazobactam (Sod 4.5 gm/ Sodium Chloride) 100 mls @ 200 mls/hr IV Q8HR KIT Stop: 04/20/25 21:59 Vancomycin/Sodium Chloride (Vancomycin/Ns 1 Gm Ivpb) 200 mls @ 120 mls/hr IV X1 ONE Stop: 04/13/25 23:39 Levetiracetam (Levetiracetam Liqd 500 Mg/5 Ml Udc) 1,000 mg GT BID [facility] Stop: 05/13/25 21:59 Lorazepam (Lorazepam 2 Mg/Ml Vial) 2 mg IVP Q30M PRN PRN Reason: Breakthrough Seizure Stop: 04/18/25 21:50 Non-Formulary Medication (Pantoprazole) 40 mg GT QDAY [facility] Stop: 05/14/25 08:59 Non-Formulary Medication (Fludrocortisone) 0.1 mg GT DAILY KIT Stop: 05/14/25 08:59 Non-Formulary Medication (Midodrine) 10 mg GT TID [facility] Stop: 05/13/25 21:59 Ondansetron HCl (Ondansetron Inj 2 Mg/Ml Inj 2 Ml) 4 mg IVP Q6H PRN; Protocol PRN Reason: NAUSEA OR VOMITING Stop: 05/13/25 21:41 Pharmacy Consult (Vancomycin Pharmacy To Dose 1 Each Each) 1 each IV QDAY [facility] Stop: 05/14/25 08:59 Sodium Chloride (Sodium Chloride 0.9% Flush 10 Ml Syringe) 5 ml IVP Q8HR [facility] Stop: 05/13/25 21:59 Discontinued Medications Sodium Chloride (Ns) 1,000 mls @ 999 mls/hr IV .Q1H1M ONE Stop: 04/13/25 17:18 Last Infusion: 04/13/25 17:42 Dose: Infused Piperacillin Sod/Tazobactam (Sod 4.5 gm/ Sodium Chloride) 100 mls @ 200 mls/hr IV X1 ONE Stop: 04/13/25 22:29 Last Admin: 04/13/25 21:59 Dose: 200 mls/hr Lorazepam (Lorazepam 2 Mg/Ml Vial) 2 mg IVP X1 ONE Stop: 04/13/25 17:32 Last Admin: 04/13/25 17:41 Dose: 2 mg Assessment & Plan Plan 39-year-old male with a past medical history of 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, status post tracheostomy, mechanical ventilation, PEG tube, suprapubic catheter, right nephrostomy tube due to obstructive uropathy, and bilateral upper extremity DVT, presented to [facility] from in-house subacute for fever will be admitted for IV antibiotics for treatment of ventilator associated pneumonia. #Ventilator associated pneumonia #Urinary tract infection? Patient presenting with fevers noted at subacute facility, trach and PEG and high risk for aspiration secondary to being ventilated In the ED, patient has leukocytosis, elevated Pro-Chuck Chest x-ray shows bibasilar and right middle lobe pneumonia Urinalysis does show signs of infection with positive nitrites, leukocyte Estrace and +1 bacteria, suprapubic catheter Plan: Started patient on IV Zosyn 4.5 every 8 along with IV Vanco pharmacy to dose Follow-up on blood and urine cultures Sputum cultures ordered #Obstructive uropathy #ELDON on CKD Stage IV Patient has a nephrostomy tube (placed at [facility]) as well as suprapubic catheter Patient had elevated creatinine above baseline Recieved 1L bolus in ED Plan: Co Renally dose medications Avoid nephrotoxic agents #Decubitus ulcer #History Osteomyelitis History of sacral wound culture grew ESBL Proteus on 01/08/2025 sensitive to Augmentin in the past Plan: Wound care referral #Seizure, patient history #Anoxic brain injury due to cardiac arrest Phenytoin level elevated >40 Patient history as stated. Patient is nonverbal at baseline. Med rec completed Plan: Continue with home medications Monitor Phenytoin level #History of bilateral upper extremity DVT #History of factor V Leyden deficiency Patient with history of bilateral upper extremity DVT history of factor V Leyden deficiency, was swtiched to Eliquis 5mg GT BID on last discharge Plan: Continue Eliquis 5 mg GT bid #Anemia of chronic disease Patient's hemoglobin was 7.9 No signs of active bleeding. Plan: Continue to monitor #Adrenal insufficiency, suspected Patient takes 0.1 mg fludrocortisone at twice daily at home, suspect due to history of adrenal sufficiency although not clearly documented. Would explain patient's significant hypotension and continued soft blood pressure. Plan: Resume home meds: Fludrocortisone 0.1 mg GT twice daily Health management: Diet: Tube feeds, pending diet eval DVT ppx: Eliquis GI ppx: Protonix Lines: PIV, suprapubic catheter, right-sided nephrostomy tube, trach Code status: DNR Patient seen and assessed with attending Dr. Nasir Isabel, DO PGY-2 Internal Medicine - GME Attending Provider Attestation/Addendum 39-year-old male patient with anoxic brain injury secondary to cardiac arrest status post trach and PEG, DVT, factor V Leiden mutation, obstructive uropathy, seizure, adrenal insufficiency was admitted for ventilator associated pneumonia and UTI. BUN is 102 creatinine 3.4. Sodium level is 149 the patient was started on empiric antibiotic treatment. White blood count is 18,000. Check culture results. The patient is attached to the ventilator. Discussed with housestaff.
[2025-04-13] MEDS: VANCOMYCIN/NS 1 GM IVPB 200 ML IV (22:43)
[2025-04-13] MEDS: MIDODRINE 5 MG TABLET 10 MG GT (22:59)
[2025-04-13 23:14] LABS: COVID-19 Antigen (In-House) Negative (Negative)
[2025-04-13] MEDS: BACLOFEN 10 MG TABLET 5 MG GT (23:14)
[2025-04-13] MEDS: levETIRAcetam LIQD 500 MG/5 ML UDC 1000 MG GT (23:15)
[2025-04-13] MEDS: CARBAMIDE PEROXIDE OTIC SOL 15 ML BTL 5 DROP BOTH EARS (23:38)
[2025-04-14] VITALS (13 sets, daily range): BP systolic 90–114; BP diastolic 58–77; PULSE 84–102; RESP 12–18; TEMP 37.1–37.4; O2SAT 95–99; BMI 27.6
--- NOTE | 2025-04-14 00:31 | PC.NURSE ---
PT WAS CHANGED AND CLEANED AFTER BOWEL MOVEMENT. PT WAS REPOSITIONED TO RIGHT SIDE
--- NOTE | 2025-04-14 01:03 | PC.RT ---
sputum sample collected and sent to lab.
--- NOTE | 2025-04-14 03:16 | PC.NURSE ---
WE HAD DOWN TIME FROM [id number].
--- NOTE | 2025-04-14 03:30 | PC.NURSE ---
pt was repositioned
[2025-04-14 05:23] LABS: Basophils # (Auto) 0.1 Thou/mm3 (0.0-0.2); Basophils % (Auto) 1 % (0-2.5); Eosinophils # (Auto) 2.8 Thou/mm3 (0.0-0.5); Eosinophils % (Auto) 15 % (0-10); Hematocrit 29.3 % (41.0-53.0); Immature Granulocytes Auto 0.21 Thou/mm3 (0.00-0.00); Lymphocytes # (Auto) 1.3 Thou/mm3 (1.0-4.8); Lymphocytes % (Auto) 7 % (10-50); Mean Corpuscular HGB Conc 29.4 g/dl (31.0-37.0); Mean Corpuscular Hemoglobin 27.6 pg (25.0-35.0); Mean Corpuscular Volume 94 fL (80-100); Monocytes # (Auto) 1.2 Thou/mm3 (0.0-0.8); Monocytes % (Auto) 6 % (0-12); Neutrophils # (Auto) 13.1 Thou/mm3 (1.8-7.7); Neutrophils % (Auto) 70 % (37-80); Nucleated Red Blood Cell # 0.00 Thou/mm3 (0.00-0.00); Nucleated Red Blood Cell % 0 /100 WBC (0); Platelet Count 392 Thou/mm3 (140-440); RDW Standard Deviation 54.3 fL (35.1-43.9); Red Blood Count 3.12 Miln/mm3 (4.50-5.90); White Blood Count 18.7 Thou/mm3 (3.8-10.6)
[2025-04-14 05:27] LABS: Hemoglobin 8.6 g/dL (13.5-16.0)
[2025-04-14 05:52] LABS: Alanine Aminotransferase 166 U/L (10-49); Albumin, Serum 3.6 gm/dL (3.5-5.0); Albumin/Globulin Ratio 1.0 (1.2-2.2); Alkaline Phosphatase 595 U/L (46-116); Anion Gap 9 (7-16); Aspartate Amino Transferase 45 U/L (0-34); BUN/Creatinine Ratio 30 Ratio (12-20); Bilirubin,Total 0.6 mg/dL (0.3-1.2); Blood Urea Nitrogen 96 mg/dL (9-23); Calcium 9.4 mg/dL (8.3-10.6); Calcium (Corrected) 9.7 mg/dL (8.5-10.1); Carbon Dioxide 25.8 mMol/L (20.0-31.0); Chloride 119 mMol/L (98-107); Creatinine (Component) 3.2 mg/dL (0.6-1.3); Estimated Creatinine Clearance 27.9 mL/min (>60); Globulin 3.7 gm/dL (2.3-3.5); Glucose 109 mg/dL (74-106); Magnesium 2.5 mg/dL (1.6-2.6); Osmolality,Calculated 336 (275-295); Phosphorous 4.3 mg/dL (2.4-5.1); Potassium 4.2 mMol/L (3.4-5.1); Sodium 154 mMol/L (136-145); Total Protein 7.3 gm/dL (5.7-8.2); eGFR 24 See Note
[2025-04-14] MEDS: MIDODRINE 5 MG TABLET 10 MG GT ×3 (06:31→21:09)
[2025-04-14] MEDS: BACLOFEN 10 MG TABLET 5 MG GT ×3 (07:03→21:10)
[2025-04-14] MEDS: PIPER/TAZO 3.375 GM PREMIX 3.375 GM/50 ML BAG IV (08:03)
--- NOTE | 2025-04-14 09:40 | PC.DIETICIAN ---
Dietitian consult:When medically feasible, resume usual TF regimen: Jevity 1.5 @ 60ml/[id number] via G tube by pump =1200ml total vol, 1800kcal, 77g pro. Hold 1 hr before and after Phenytoin BID If no IVF, give 250ml minimum of water flush Q 4hrs or per Thank you
[2025-04-14] MEDS: APIXABAN 2.5 MG TABLET 5 MG GT ×2 (10:24→21:10)
[2025-04-14] MEDS: levETIRAcetam LIQD 500 MG/5 ML UDC 1000 MG GT ×2 (10:24→21:09)
[2025-04-14] MEDS: Artificial Tears 225 DROP/15 ML BTL BOTH EYES ×2 (10:24→21:38)
--- NOTE | 2025-04-14 10:42 | PC.CC ---
ASWSara and MANAGER PLUMBING, student Shea made face to face contact with patient to complete initial assessment. Patient is not alert and oriented to self, location, and situation unable to complete initial assessment. ASW was made aware that patient is from [facility]. ASW attempted to make telephone contact with sister, Dee Smith to complete assessment but no answer vm left.
[2025-04-14 11:32] LABS: Phenytoin (Dilantin) > 40.0 mcg/mL
[2025-04-14] MEDS: RINGERS LACTATED 1000 ML 1,000 ML 100 ML IV ×2 (12:24→21:38)
[2025-04-14] MEDS: FLUDROCORTISONE ACETATE 0.1 MG TABLET GT (13:23)
--- NOTE | 2025-04-14 13:41 | ESPR_ITS ---
<Statement entered by Khari Snider MD - 04/15/25 19:45> I have discussed and was present for the essential components of the history, physical examination, diagnosis, and treatment plan with the resident. I agree with the patient's care as documented by the resident and amended herein by me. Khari Snidre MD FACP. <Statement entered by Terrence Lira MD - 04/14/25 21:11> I discussed and supervised with the international accountant physician who took care of this patient. I personally saw and examined the patient. I agree with most of the assessment and plan. Disclaimer: Despite multiple revisions, due to the dictation software being used, the document bellow may not be free of grammatical errors including phonetic/typographic errors. However, this does not deter from our commitment to providing health care in the patient's best interest in mind. Plan of care discussed with attending Physician Dr. Agatha Lira MD PGY-3 Documentation for date of: 04/14/25 Subjective Subjective Interval history: No acute overnight events. Patient has been seen and examined. Patient's is not aware/oriented, compared to his base line of non verbal with at least minimal awareness. Patient is periodically being repositioned, per nursing. Exam Vital Signs Temp Pulse Resp BP Pulse Ox O2 Del Method O2 Flow Rate 99.3 F 97 12 114/75 97 Mechanical Ventilation 40 04/14/25 10:12 04/14/25 13:27 04/14/25 10:12 04/14/25 13:27 04/14/25 10:12 04/14/25 10:12 04/14/25 06:06 FiO2 40 04/14/25 10:12 Narrative Exam Physical Exam: GENERAL: Trach & peg HEENT: NC/AT. Moist mucosa. PERRLA/EOMI. CARDIO: Heart RRR, no obvious murmurs, no JVD. PULM: Mechanical breath sounds heard bilaterally GI: Abdomen soft, NT/ND, +BS. URO/PIECER UP: +Lal catheter SKIN/MSK/EXT: Sacral wounds Grade III. No discoloration/rashes/edema/amputations. +Pedal pulses present B/L. NEURO: Oriented x0 Objective Labs 04/14/25 04:42 04/14/25 04:42 Labs: Laboratory Results - last 24 hr 04/13/25 04/13/25 04/13/25 14:37 16:16 16:33 WBC 18.9 H RBC 2.78 L Hgb 7.9 L Hct 26.9 L MCV 97 MCH 28.4 MCHC 29.4 L RDW Std Deviation 56.6 H Plt Count 402 Neut % (Auto) 70 Lymph % (Auto) 7 L [place] % (Auto) 7 Eos % (Auto) 14 H Baso % (Auto) 1 Neut # (Auto) 13.1 H Lymph # (Auto) 1.3 [place] # (Auto) 1.3 H Eos # (Auto) 2.7 H Baso # (Auto) 0.1 Immature Gran # (Auto) 0.27 H Absolute Nucleated RBC 0.00 Immature Gran % 1 H Nucleated RBC % 0 PT 10.9 INR 1.0 APTT 35.3 Sodium 149 H Potassium 4.4 Chloride 114 H Carbon Dioxide 26.1 Anion Gap 9 BUN 102 H* Creatinine 3.4 H Estim Creat Clear Calc 26.2 L eGFR 22 L BUN/Creatinine Ratio 30 H Glucose 357 H D Calculated Osmolality 342 H Lactic Acid 1.0 Calcium 8.9 Corrected Calcium 9.3 Phosphorus Magnesium 2.8 H Total Bilirubin 0.2 L AST 63 H ALT 195 H Alkaline Phosphatase 630 H D Troponin I < 0.002 B-Natriuretic Peptide < 20 Total Protein 7.3 Albumin 3.5 Globulin 3.8 H Albumin/Globulin Ratio 0.9 L Lipase 24 Procalcitonin 1.67 H Ur Collection Type Clean Catch Urine Color Yellow Urine Clarity Turbid A Urine pH 8.0 H Ur Specific [place] 1.016 Urine Protein 2+ A Urine Glucose (UA) 3+ A Urine Ketones Negative Urine Blood 1+ A Urine Nitrite Positive Urine Bilirubin Negative Urine Urobilinogen (Auto) Negative Ur Leukocyte Esterase Positive Urine RBC 8 H Urine WBC 107 H Ur Squamous Epith Cells 0 Amorphous Crystals Present A Urine Bacteria 1+ A Phenytoin SARS-CoV-2 Ag (Rapid) 04/13/25 04/14/25 04/14/25 22:28 04:42 10:27 WBC 18.7 H RBC 3.12 L Hgb 8.6 L Hct 29.3 L MCV 94 MCH 27.6 MCHC 29.4 L RDW Std Deviation 54.3 H Plt Count 392 Neut % (Auto) 70 Lymph % (Auto) 7 L [place] % (Auto) 6 Eos % (Auto) 15 H Baso % (Auto) 1 Neut # (Auto) 13.1 H Lymph # (Auto) 1.3 [place] # (Auto) 1.2 H Eos # (Auto) 2.8 H Baso # (Auto) 0.1 Immature Gran # (Auto) 0.21 H Absolute Nucleated RBC 0.00 Immature Gran % 1 H Nucleated RBC % 0 PT INR APTT Sodium 154 H Potassium 4.2 Chloride 119 H Carbon Dioxide 25.8 Anion Gap 9 BUN 96 H Creatinine 3.2 H Estim Creat Clear Calc 27.9 L eGFR 24 L BUN/Creatinine Ratio 30 H Glucose 109 H D Calculated Osmolality 336 H Lactic Acid Calcium 9.4 Corrected Calcium 9.7 Phosphorus 4.3 Magnesium 2.5 Total Bilirubin 0.6 AST 45 H ALT 166 H Alkaline Phosphatase 595 H D Troponin I B-Natriuretic Peptide Total Protein 7.3 Albumin 3.6 Globulin 3.7 H Albumin/Globulin Ratio 1.0 L Lipase Procalcitonin Ur Collection Type Urine Color Urine Clarity Urine pH Ur Specific [place] Urine Protein Urine Glucose (UA) Urine Ketones Urine Blood Urine Nitrite Urine Bilirubin Urine Urobilinogen (Auto) Ur Leukocyte Esterase Urine RBC Urine WBC Ur Squamous Epith Cells Amorphous Crystals Urine Bacteria Phenytoin > 40.0 H* SARS-CoV-2 Ag (Rapid) Negative Quality Measures Quality Measures VTE prophylaxis Assessment & Plan Assessment Current Active Medications: Generic Name Dose Route Start Last Admin Trade Name Freq PRN Reason Stop Dose Admin Acetaminophen 325 mg 04/13/25 21:45 Acetaminophen Lala 325 Mg/10 Ml Udc GT 05/13/25 21:44 Q4HR PRN Pain 1-3 Or Fever > 101 Apixaban 5 mg 04/14/25 09:00 04/14/25 10:24 Apixaban 2.5 Mg Tablet GT 05/05/25 08:59 5 mg BID KIT Administration Artificial Tears 1 drop 04/14/25 09:00 04/14/25 10:24 Artificial Tears 225 Drop/15 Ml Btl BOTH EYES 05/14/25 08:59 1 drop BID KIT Administration Baclofen 5 mg 04/13/25 22:00 04/14/25 13:18 Baclofen 10 Mg Tablet GT 05/13/25 21:59 5 mg TID KIT Administration Carbamide Peroxide 5 drop 04/13/25 22:00 04/13/25 23:38 Carbamide Peroxide Otic Lala 15 Ml Btl BOTH EARS 05/13/25 21:59 5 drops Q61D KIT Administration Fludrocortisone Acetate 0.1 mg 04/14/25 09:00 04/14/25 13:23 Fludrocortisone Acetate 0.1 Mg Tablet GT 05/14/25 08:59 0.1 mg DAILY KIT Administration Vancomycin HCl 250 mls @ 120 mls/hr 04/14/25 22:00 Vancomycin/Water 1250 Mg Ivpb IV 04/21/25 21:59 Q24H KIT Meropenem 1,000 mg/ Sodium 50 mls @ 100 mls/hr 04/14/25 21:00 Chloride IV 04/21/25 20:59 Q12HR KIT Lactated Ringer's 1,000 mls @ 100 mls/hr 04/14/25 10:14 04/14/25 12:24 Lactated Ringers IV 05/14/25 10:13 100 mls/hr .Q10H KIT Administration Levetiracetam 1,000 mg 04/13/25 22:00 04/14/25 10:24 Levetiracetam Liqd 500 Mg/5 Ml Udc GT 05/13/25 21:59 1,000 mg BID KIT Administration Lorazepam 2 mg 04/13/25 21:51 Lorazepam 2 Mg/Ml Vial IVP 04/18/25 21:50 Q30M PRN Breakthrough Seizure Midodrine 10 mg 04/13/25 22:45 04/14/25 13:27 Midodrine 5 Mg Tablet GT 05/13/25 22:44 10 mg TID KIT Administration Ondansetron HCl 4 mg 04/13/25 21:42 Ondansetron Inj 2 Mg/Ml Inj 2 Ml IVP 05/13/25 21:41 Q6H PRN NAUSEA OR VOMITING Protocol Pantoprazole Sodium 40 mg 04/14/25 09:00 04/14/25 10:25 Pantoprazole Inj 40 Mg Vial IVP 05/14/25 08:59 40 mg QDAY KIT Administration Pharmacy Consult 1 each 04/14/25 09:00 Vancomycin Pharmacy To Dose 1 Each Each IV 05/14/25 08:59 QDAY PRN RX Sodium Chloride 5 ml 04/13/25 22:00 04/14/25 06:32 Sodium Chloride 0.9% Flush 10 Ml Syringe IVP 05/13/25 21:59 5 ml Q8HR KIT Administration Plan 39-year-old male with a past medical history of 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, status post tracheostomy, mechanical ventilation, PEG tube, suprapubic catheter, right nephrostomy tube due to obstructive uropathy, and bilateral upper extremity DVT, presented to [facility] from in- house subacute for fever will be admitted for IV antibiotics for treatment of ventilator associated pneumonia. #Ventilator associated pneumonia #Urinary tract infection? Patient presenting with fevers noted at subacute facility, trach and PEG and high risk for aspiration secondary to being ventilated In the ED, patient has leukocytosis, elevated Pro-Chuck Chest x-ray shows bibasilar and right middle lobe pneumonia Urinalysis does show signs of infection with positive nitrites, leukocyte Esterase and +1 bacteria, suprapubic catheter Patient has a chronic history of recurring pneumonia showing that Plan: Patient started out on IV Zosyn 4.5 every 8 along with IV Vanco pharmacy to dose Will start Meropenem 1,000 mg IV Q12 hr due to would culture growth of Proteus with multiple resistances. Follow-up on blood, urine, and sputum cultures #Obstructive uropathy #ELDON on CKD Stage IV #hypernatremia Patient has a nephrostomy tube (placed at [facility]) as well as suprapubic catheter Patient had elevated creatinine of 3.2 which is above his baseline of around 1.6. Was Given 1L bolus in ED. Sodium elevated at 154 possibly due to hx of obstructive uropathy in setting of pneumonia vs a low volume picture. Plan: Started 1L LR @ 100mls/hr maintenance and free water flushes, will continue to monitor Renally dose medications Avoid nephrotoxic agents #Decubitus ulcer #History Osteomyelitis History of sacral wound culture grew ESBL Proteus on 01/08/2025 sensitive to Augmentin in the past Plan: Wound culture grew Proteus, will start Meropenem 1,000 mg IV Q12 hr Wound care referral #Seizure, patient history #Anoxic brain injury due to cardiac arrest Phenytoin level elevated >40. Poison control was contacted and recommended to ask lab if a more specific measurement can be done to get a better idea of the blood levels. They also recommended to monitor for respiratory depression, coma, seizures, rash Patient history as stated. Patient is nonverbal at baseline and is a&o x0. Med rec completed Plan: Continue with home medications Continue holding Phenytoin give continued levels after rechecked and still elevated. Continue monitoring for symptoms mentioned above. #History of bilateral upper extremity DVT #History of factor V Leyden deficiency Patient with history of bilateral upper extremity DVT history of factor V Leyden deficiency, was swtiched to Eliquis 5mg GT BID on last discharge Plan: Continue Eliquis 5 mg GT bid #Anemia of chronic disease Patient's hemoglobin was 7.9 No signs of active bleeding. Plan: Continue to monitor #Adrenal insufficiency, suspected Patient takes 0.1 mg fludrocortisone at twice daily at home, suspect due to history of adrenal sufficiency although not clearly documented. Would explain patient's significant hypotension and continued soft blood pressure. Plan: Continuing home med: Fludrocortisone 0.1 mg GT daily Health management: Diet: Jevity Tube Feeds DVT ppx: Eliquis GI ppx: Protonix Lines: PIV, suprapubic catheter, right-sided nephrostomy tube, trach Code status: DNR Plan Discussed with Dr. Agatha Saldivar MD PGY-1 Internal Medicine
[2025-04-14] MEDS: MEROPENEM INJ 1,000 MG in SODIUM CHLORIDE 0.9% (Popper) 50 ML 100 MG IV (21:09)
[2025-04-14] MEDS: COLLAGENASE OINT 30 GM TUBE TOP (21:36)
[2025-04-14] MEDS: SOD HYPOCHLORITE 1/4 STR 473 ML BTL IRRIG (21:40)
[2025-04-14] MEDS: VANCOMYCIN/WATER 1250 MG IVPB 250 ML 120 MG IV (22:33)
[2025-04-15] VITALS (15 sets, daily range): BP systolic 83–104; BP diastolic 55–74; PULSE 95–109; RESP 16–25; TEMP 36.1–37.7; O2SAT 87–99; BMI 27.6
--- NOTE | 2025-04-15 00:17 | PC.NURSE ---
Contacted by Vi from Poison Control requesting the exact phenytoin level result. Informed them that the laboratory was unable to provide an exact value as the level exceeded the upper limit (>40 mcg/mL). Therefore, no numeric value is available at this time. Dr. Aviles notified of Poison Control's request and the current limitation in the lab results. No new orders at this time and Dr. Aviles will F/U with day team.
[2025-04-15] MEDS: MIDODRINE 5 MG TABLET 10 MG GT ×3 (05:03→21:10)
[2025-04-15] MEDS: BACLOFEN 10 MG TABLET 5 MG GT ×3 (05:03→21:10)
[2025-04-15 05:55] LABS: Basophils # (Auto) 0.2 Thou/mm3 (0.0-0.2); Basophils % (Auto) 1 % (0-2.5); Eosinophils # (Auto) 3.1 Thou/mm3 (0.0-0.5); Eosinophils % (Auto) 16 % (0-10); Hematocrit 29.6 % (41.0-53.0); Immature Granulocytes Auto 0.20 Thou/mm3 (0.00-0.00); Lymphocytes # (Auto) 1.6 Thou/mm3 (1.0-4.8); Lymphocytes % (Auto) 8 % (10-50); Mean Corpuscular HGB Conc 29.1 g/dl (31.0-37.0); Mean Corpuscular Hemoglobin 27.8 pg (25.0-35.0); Mean Corpuscular Volume 96 fL (80-100); Monocytes # (Auto) 1.3 Thou/mm3 (0.0-0.8); Monocytes % (Auto) 7 % (0-12); Neutrophils # (Auto) 13.2 Thou/mm3 (1.8-7.7); Neutrophils % (Auto) 68 % (37-80); Nucleated Red Blood Cell # 0.02 Thou/mm3 (0.00-0.00); Nucleated Red Blood Cell % 0 /100 WBC (0); Platelet Count 366 Thou/mm3 (140-440); RDW Standard Deviation 55.7 fL (35.1-43.9); Red Blood Count 3.09 Miln/mm3 (4.50-5.90); White Blood Count 19.6 Thou/mm3 (3.8-10.6)
[2025-04-15 05:59] LABS: Hemoglobin 8.6 g/dL (13.5-16.0)
[2025-04-15 06:35] LABS: Alanine Aminotransferase 126 U/L (10-49); Albumin, Serum 3.5 gm/dL (3.5-5.0); Albumin/Globulin Ratio 0.9 (1.2-2.2); Alkaline Phosphatase 581 U/L (46-116); Anion Gap 12 (7-16); Aspartate Amino Transferase 45 U/L (0-34); BUN/Creatinine Ratio 23 Ratio (12-20); Bilirubin,Total 0.7 mg/dL (0.3-1.2); Blood Urea Nitrogen 78 mg/dL (9-23); Calcium 9.1 mg/dL (8.3-10.6); Calcium (Corrected) 9.5 mg/dL (8.5-10.1); Carbon Dioxide 21.7 mMol/L (20.0-31.0); Chloride 120 mMol/L (98-107); Creatinine (Component) 3.4 mg/dL (0.6-1.3); Estimated Creatinine Clearance 26.2 mL/min (>60); Globulin 3.7 gm/dL (2.3-3.5); Glucose 201 mg/dL (74-106); Osmolality,Calculated 334 (275-295); Potassium 4.7 mMol/L (3.4-5.1); Sodium 154 mMol/L (136-145); Total Protein 7.2 gm/dL (5.7-8.2); eGFR 22 See Note
[2025-04-15] MEDS: MEROPENEM INJ 1,000 MG in SODIUM CHLORIDE 0.9% (Popper) 50 ML 100 MG IV ×2 (08:10→20:28)
[2025-04-15] MEDS: levETIRAcetam LIQD 500 MG/5 ML UDC 1000 MG GT ×2 (08:13→20:31)
[2025-04-15] MEDS: APIXABAN 2.5 MG TABLET 5 MG GT ×2 (08:14→20:31)
[2025-04-15] MEDS: SOD HYPOCHLORITE 1/4 STR 473 ML BTL IRRIG ×2 (08:15→20:32)
[2025-04-15] MEDS: RINGERS LACTATED 1000 ML 1,000 ML 100 ML IV ×2 (08:15→19:11)
[2025-04-15] MEDS: FLUDROCORTISONE ACETATE 0.1 MG TABLET GT (08:15)
[2025-04-15] MEDS: Artificial Tears 225 DROP/15 ML BTL BOTH EYES ×2 (08:15→20:28)
--- NOTE | 2025-04-15 10:03 | XR_ITS ---
Examination: AP chest single view Technique one AP portable semiupright chest single view Date and time: April 15, 2025 1117 hours Comparison April 13, 2025 INDICATIONS: Hypoxia 2 days. FINDINGS: Bibasilar and right middle lobe pneumonia remain Tracheostomy tube tip 6.6 cm above dudley IMPRESSION: No improvement in bibasilar and right middle lobe pneumonia
[2025-04-15 10:30] LABS: Base Excess -1 (-3-3); HCO3 25 mEq/L (20-26); Inspired Oxygen, FIO2 80 %; O2 Saturation 99 % (91-98); PCO2 49 mmHg (32.0-48.0); PO2 120 mmHg (83-108); pH, Arterial 7.32 (7.35-7.45)
[2025-04-15 10:31] LABS: Allen Test Performed/OK; Puncture Site Right Radial
--- NOTE | 2025-04-15 11:40 | PC.SS ---
Patient Arturo Smith is a 39 Year old male admitted for Ventilator -Associated PNA. SS contacted patient's aunt, Dee Smith who reports is patient's surrogate decision maker [phone]. Dee reports patient needs assistance completing all ADL's and is non verbal. She reports when patient is medically cleared he will return back to [facility]. Discharge plan: [facility] Next of kin: aunt Dee Paredes
--- NOTE | 2025-04-15 11:41 | XR_ITS ---
Examination: Retroperitoneal ultrasound, complete Technique: Multiple high resolution grayscale images of the retroperitoneum obtained, including kidneys and bladder. Exam date and time:April 15, 2025 1246 hours INDICATIONS: Acute renal insufficiency on laboratory examination today FINDINGS: Right kidney 10.5 cm renal cortex 1.1 cm Mild right hydronephrosis right nephrostomy tube noted Left kidney 7.1 cm cortex 0.8 cm Mild hydronephrosis Bladder contracted around a Lal catheter No prostatomegaly IMPRESSION: Mild bilateral hydronephrosis
--- NOTE | 2025-04-15 12:00 | PC.SS ---
SS follow up note; Pending Urine and Blood cultures, Patient's white blood counts are elevated. Patient will discharge back to Subacute when medically cleared.
--- NOTE | 2025-04-15 15:35 | ESCONSULT_ITS ---
HPI Data of Consult Consult date: 04/15/25 Requesting Physician: Khari Snider MD Admitting Provider: Bryant Best MD Attending Provider: Khari Snider MD Primary Care Provider: Physician No Primary/Family Consult Narrative Reason for consult: ELDON on CKD IV History of present illness: Mr. Smith is a 39 year old male with a relevant medical history of anoxic brain injury, s/p tracheotomy, mechanical ventilation, and right nephrostomy tube for obstructive uropathy, who presented with a fever. The patient was admitted for use of IV antibiotics in suspicion of ventilator associated pneumonia. Nephrology was consulted due to concerns of ELDON on CKD IV. The patient was admitted with a BUN of 102, Cr 3.4, and eGFR of 22. His baseline BUN hovers around 30 and baseline Cr hovers around 1.6. Unable to speak to patient as the patient was asleep and did not rouse to loud voice. Per chart review, the patient had his nephrostomy tube and suprapubic catheter placed at [facility]. cc:: cc: Khari Snider MD Review of Systems Review of Systems ROS Unobtainable: unobtainable due to mental status and due to endotracheal tube Exam Vital Signs Temp Pulse Resp BP Pulse Ox O2 Del Method O2 Flow Rate 98.4 F 95 18 100/72 98 Mechanical Ventilation 4 04/15/25 12:00 04/15/25 13:34 04/15/25 12:00 04/15/25 13:34 04/15/25 12:00 04/15/25 12:00 04/15/25 08:00 FiO2 70 04/15/25 12:00 Narrative Exam Physical Exam: General: Alert, no acute distress. Skin: Warm, dry, intact, no obvious rash. Head: Normocephalic, atraumatic. Cardiovascular: Regular rate and rhythm, no murmur, +S1/S2. Respiratory: Respirations unlabored. Trach tube in place. Gastrointestinal: Soft, nontender, non-distended. No guarding or rebound tenderness. Extremities: No edema, no cyanosis, no clubbing. Neuro: Nonresponsive to verbal stimuli. Results Labs 04/17/25 02:50 04/17/25 08:05 Labs: Short CBC 04/15/25 Range/Units 05:20 WBC 19.6 H (3.8-10.6) Thou/mm3 Hgb 8.6 L (13.5-16.0) g/dL Hct 29.6 L (41.0-53.0) % Plt Count 366 (140-440) Thou/mm3 BMP 04/15/25 05:20 Sodium 154 H Potassium 4.7 D Chloride 120 H Carbon Dioxide 21.7 BUN 78 H Creatinine 3.4 H Glucose 201 H D Calcium 9.1 Liver Function 04/15/25 Range/Units 05:20 Total Bilirubin 0.7 (0.3-1.2) mg/dL AST 45 H (0-34) U/L ALT 126 H (10-49) U/L Alkaline Phosphatase 581 H (46-116) U/L Albumin 3.5 (3.5-5.0) gm/dL ABG Interpretation ABG results: 04/15/25 10:20 ABG pH 7.32 L ABG pCO2 49 H ABG pO2 120 H ABG HCO3 25 ABG O2 Saturation 99 H ABG Base Excess -1 Quality Measures Quality Measures VTE prophylaxis Medications Home Medications and Allergies Home Medications ?Medication ?Instructions ?Recorded ?Confirmed ?Type Dilantin Cap 600 mg GT BID seizure 04/13/25 History Held on 04/13/25. Instructions: Hold 04/13/25 on Continuing Care Visit #[id number]. Fludrocortisone 0.1 mg GT DAILY 04/15/2511/07 History Non Formulary Medication 250 ea G-tube TID 04/15/25 0 04/13/25 History acetaminophen 325 mg tablet 325 mg G-tube Q6HR PRN Jan n 04/15/25 04/13/25 History albuterol sulfate 2.5 mg/3 mL 2.5 mg INH Q6HRRT PRN SO B or 04/15/25 04/13/25 History (0.083 %) solution for nebulization wheezing artificial 1 drp Both eyes BID 04/15/25 04/13/25 History tears([id number]) 0.1 %-0.3 %-0.2 % eye drops (GenTeal Tears Moderate) baclofen 10 mg tablet 5 mg G-tube TID 04/15/2511/07 History bisacodyl 10 mg rectal suppository 10 mg HI PRN PRN No BM Per Bowel 04/15/25 04/13/25 History (Dulcolax (bisacodyl)) Management Protocol carbamide peroxide 6.5 % ear drops 5 drp otic (ear) Q6 1D 04/15/25 04/13/25 History (Ear Wax Removal Drops) carbamide peroxide 6.5 % ear drops 5 drp otic (ear) Q6 1D 04/15/25 04/13/25 History (Ear Wax Removal Drops) carbamide peroxide 6.5 % ear drops 5 drp otic (ear) Q6 1D 04/15/25 04/13/25 History (Ear Wax Removal Drops) carbamide peroxide 6.5 % ear drops 5 drp otic (ear) Q6 1D 04/15/25 04/13/25 History (Ear Wax Removal Drops) carbamide peroxide 6.5 % ear drops 5 drp otic (ear) Q6 1D 04/15/25 04/13/25 History (Ear Wax Removal Drops) carbamide peroxide 6.5 % ear drops 5 drp otic (ear) Q6 1D 04/15/25 04/13/25 History (Ear Wax Removal Drops) carbamide peroxide 6.5 % ear drops 5 drp otic (ear) Q6 1D 04/15/25 04/13/25 History (Ear Wax Removal Drops) carbamide peroxide 6.5 % ear drops 5 drp otic (ear) Q6 1D 04/15/25 04/13/25 History (Ear Wax Removal Drops) ipratropium 0.5 mg-albuterol 3 mg 3 ml INH Q6HRRT 01/0504/13/25 History (2.5 mg base)/3 mL nebulization soln levetiracetam 100 mg/mL oral 1,000 mg G-tube BID 04/1504/13/25 History solution lorazepam 0.5 mg tablet 0.5 mg G-tube Q6HR PRN anxie ty 04/15/25 04/13/25 History lorazepam 2 mg/mL injection 2 mg IM [id number] PRN Seizur e 04/15/25 04/13/25 History solution Activity magnesium hydroxide 400 mg/5 mL 30 ml G-tube PRN PRN C onstipation 04/15/25 04/13/25 History oral suspension (Milk of Magnesia) metoclopramide HCl 5 mg tablet 5 mg G-tube TID 5 04/13/25 History midodrine 10 mg tablet 10 mg G-tube TID 04/15/25 History [id number]-[id number]-[id number] 1 ea G-tube QDAY 04/15/25 0 04/13/25 History fumarate 7.5 mg-folic acid 400 mcg tablet pantoprazole 40 mg granules 40 mg G-tube QDAY 04/15/25 04/13/25 History delayed-release for susp in packet polyethylene glycol 3350 17 gram 17 g G-tube PRN PRN N o BM Per 04/15/25 04/13/25 History oral powder packet Bowel Management Protocol sodium chloride 0.9 % (flush) 5 ml IVP Q8HR 04/15/25 0 04/13/25 History (Normal Saline Flush 0.9 % injection syringe) sodium phosphates 19 gram-7 133 ml HI PRN PRN No BM Pe r Bowel 04/15/25 04/13/25 History gram/118 mL enema (Fleet Enema) Management Protocol Allergies Allergy/AdvReac Type Severity Reaction Status Date / Time No Known Allergies Allergy Verified 01/11/25 11:40 Visit Medications Acetaminophen (Acetaminophen Lala 325 Mg/10 Ml Udc) 325 mg GT Q4HR PRN PRN Reason: Pain 1-3 Or Fever > 101 Stop: 05/13/25 21:44 Apixaban (Apixaban 2.5 Mg Tablet) 5 mg GT BID [facility] Stop: 05/05/25 08:59 Last Admin: 04/15/25 08:14 Dose: 5 mg Artificial Tears (Artificial Tears 225 Drop/15 Ml Btl) 1 drop BOTH EYES BID KIT Stop: 05/14/25 08:59 Last Admin: 04/15/25 08:15 Dose: 1 drop Baclofen (Baclofen 10 Mg Tablet) 5 mg GT TID KIT Stop: 05/13/25 21:59 Last Admin: 04/15/25 13:34 Dose: 5 mg Carbamide Peroxide (Carbamide Peroxide Otic Lala 15 Ml Btl) 5 drop BOTH EARS Q61D [facility] Stop: 05/13/25 21:59 Last Admin: 04/13/25 23:38 Dose: 5 drops Collagenase (Collagenase Oint 30 Gm Tube) 0 gm TOP HS [facility] Stop: 05/14/25 20:59 Last Admin: 04/14/25 21:36 Dose: 1 applicatio Fludrocortisone Acetate (Fludrocortisone Acetate 0.1 Mg Tablet) 0.1 mg GT DAILY [facility] Stop: 05/14/25 08:59 Last Admin: 04/15/25 08:15 Dose: 0.1 mg Meropenem 1,000 mg/ Sodium (Chloride) 50 mls @ 100 mls/hr IV Q12HR KIT Stop: 04/21/25 20:59 Last Admin: 04/15/25 08:10 Dose: 100 mls/hr Lactated Ringer's (Lactated Ringers) 1,000 mls @ 100 mls/hr IV .Q10H [facility] Stop: 05/14/25 10:13 Last Admin: 04/15/25 08:15 Dose: 100 mls/hr Vancomycin/Sodium Chloride (Vancomycin/Ns 1 Gm Ivpb) 200 mls @ 120 mls/hr IV Q24H [facility]; Protocol Stop: 04/22/25 21:59 Lansoprazole (Lansoprazole 30 Mg Tab.Rap.Dr) 30 mg GT QDAY [facility] Stop: 05/14/25 08:59 Levetiracetam (Levetiracetam Liqd 500 Mg/5 Ml Udc) 1,000 mg GT BID [facility] Stop: 05/13/25 21:59 Last Admin: 04/15/25 08:13 Dose: 1,000 mg Lorazepam (Lorazepam 2 Mg/Ml Vial) 2 mg IVP Q30M PRN PRN Reason: Breakthrough Seizure Stop: 04/18/25 21:50 Midodrine (Midodrine 5 Mg Tablet) 10 mg GT TID [facility] Stop: 05/13/25 22:44 Last Admin: 04/15/25 13:34 Dose: 10 mg Ondansetron HCl (Ondansetron Inj 2 Mg/Ml Inj 2 Ml) 4 mg IVP Q6H PRN; Protocol PRN Reason: NAUSEA OR VOMITING Stop: 05/13/25 21:41 Pharmacy Consult (Vancomycin Pharmacy To Dose 1 Each Each) 1 each IV QDAY PRN PRN Reason: RX Stop: 05/14/25 08:59 Sodium Chloride (Sodium Chloride 0.9% Flush 10 Ml Syringe) 5 ml IVP Q8HR KIT Stop: 05/13/25 21:59 Last Admin: 04/15/25 13:38 Dose: 5 ml Sodium Hypochlorite (Sod Hypochlorite 1/4 Str 473 Ml Btl) 473 ml IRRIG BID KIT Stop: 05/14/25 20:59 Last Admin: 04/15/25 08:15 Dose: 1 applicatio Discontinued Medications Heparin Sodium (Porcine) (Heparin Sod Inj 5000 Unit/Ml Vial) 5,000 unit SC Q12HR KIT Stop: 04/28/25 08:59 Sodium Chloride (Ns) 1,000 mls @ 999 mls/hr IV .Q1H1M ONE Stop: 04/13/25 17:18 Last Infusion: 04/13/25 17:42 Dose: Infused Piperacillin Sod/Tazobactam (Sod 4.5 gm/ Sodium Chloride) 100 mls @ 200 mls/hr IV X1 ONE Stop: 04/13/25 22:29 Last Infusion: 04/13/25 22:40 Dose: Infused Vancomycin/Sodium Chloride (Vancomycin/Ns 1 Gm Ivpb) 200 mls @ 120 mls/hr IV X1 ONE Stop: 04/13/25 23:39 Last Infusion: 04/14/25 00:30 Dose: Infused Vancomycin HCl (Vancomycin/Water 1250 Mg Ivpb) 250 mls @ 120 mls/hr IV Q24H KIT Stop: 04/21/25 21:59 Last Infusion: 04/15/25 00:38 Dose: Infused Piperacillin/Tazobactam/Dextrose (Zosyn) 3.375 gm in 50 mls @ 12.5 mls/hr IV Q8HR KIT Stop: 04/21/25 07:14 Last Admin: 04/14/25 08:03 Dose: 12.5 mls/hr Lorazepam (Lorazepam 2 Mg/Ml Vial) 2 mg IVP X1 ONE Stop: 04/13/25 17:32 Last Admin: 04/13/25 17:41 Dose: 2 mg Non-Formulary Medication (Pantoprazole) 40 mg GT QDAY KIT Stop: 05/14/25 08:59 Pantoprazole Sodium (Pantoprazole Inj 40 Mg Vial) 40 mg IVP QDAY KIT Stop: 05/14/25 08:59 Last Admin: 04/15/25 08:13 Dose: 40 mg Sodium Chloride (Sodium Chloride 0.9% Flush 10 Ml Syringe) 5 ml IVP Q8HR KIT Stop: 05/13/25 21:59 Last Admin: 04/14/25 13:59 Dose: 5 ml Sodium Chloride (Sodium Chloride Rt 10% 15 Ml Nebu) 5 ml INH X1 ONE Stop: 04/14/25 00:21 Last Admin: 04/14/25 01:46 Dose: Not Given Assessment & Plan Plan Mr. Smith is a 39 year old male with a relevant medical history of anoxic brain injury, s/p tracheotomy, mechanical ventilation, and right nephrostomy tube for obstructive uropathy, who presented with a fever. The patient was admitted for use of IV antibiotics in suspicion of ventilator associated pneumonia. Nephrology was consulted due to concerns of ELDON on CKD IV. #ELDON on CKD IV #Obstructive uropathy #Hypernatremia Patient was admitted with BUN of 102, Cr 3.4, and eGFR of 22. Given the patient's prior history of obstructive uropathy, ELDON may be due to ATN 2/2 drops in BP as recorded in EMR prior to admission to [facility]. - Renally adjust medications. - IV fluid resuscitation as tolerated. - Consult Urology for management of nephrostomy tube - Nephrology will continue to follow Patient was discussed with the Nephrology attending, Dr. Duran. Thank you for allowing us to participate in the care of this patient. Salazar Smalls, PGY-1 Attending Provider Attestation/Addendum Pt is seen and examined. labs and investigations are reviewed. Agree with assessment and plan and findings by resident. Kevin Duran MD
[2025-04-15 16:29] LABS: Phenytoin (Dilantin) > 40.0 mcg/mL
[2025-04-15 16:55] LABS: Chloride,Urine Random 50.4 mMol/L (55.0-125.0); Creatinine,Random Urine 31 mg/dL (30-125); Potassium,Urine Random 24 mMol/L (12-62); Sodium,Urine Random 65.5 mMol/L (20.0-110.0)
--- NOTE | 2025-04-15 17:57 | ESPR_ITS ---
<Statement entered by Khari Snider MD - 04/18/25 15:01> I have discussed and was present for the essential components of the history, physical examination, diagnosis, and treatment plan with the resident. I agree with the patient's care as documented by the resident and amended herein by me. Khari Snider MD FACP. <Statement entered by Terrence Lira MD - 04/15/25 18:04> I discussed and supervised with the architect internship physician who took care of this patient. I personally saw and examined the patient. I agree with most of the assessment and plan. Disclaimer: Despite multiple revisions, due to the dictation software being used, the document bellow may not be free of grammatical errors including phonetic/typographic errors. However, this does not deter from our commitment to providing health care in the patient's best interest in mind. Plan of care discussed with attending Physician Dr. Agatha Lira MD PGY-3 Documentation for date of: 04/15/25 Subjective Subjective Interval history: No acute overnight events. Patient has been seen and examined. Patient continues to not be aware/oriented, compared to his base line of non verbal with at least minimal awareness. Patient is periodically being repositioned, per nursing. Exam Vital Signs Temp Pulse Resp BP Pulse Ox O2 Del Method O2 Flow Rate 99 F 101 H 19 100/74 97 Mechanical Ventilation 4 04/15/25 16:00 04/15/25 16:00 04/15/25 16:00 04/15/25 16:00 04/15/25 16:00 04/15/25 16:00 04/15/25 08:00 FiO2 70 04/15/25 15:39 Narrative Exam Physical Exam: GENERAL: Trach & peg HEENT: NC/AT. Dehydrated mucosa. PERRLA/EOMI. CARDIO: Heart RRR, no obvious murmurs, no JVD. PULM: Mechanical breath sounds heard bilaterally GI: Abdomen soft, NT/ND, +BS. URO/[employer] CONSULTANT: +Lal catheter SKIN/MSK/EXT: Sacral wounds Grade III. No discoloration/rashes/edema/amputations. +Pedal pulses present B/L. NEURO: Oriented x0 Objective Labs 04/15/25 05:20 04/15/25 05:20 Labs: Laboratory Results - last 24 hr 04/15/25 04/15/25 04/15/25 05:20 10:20 15:38 WBC 19.6 H RBC 3.09 L Hgb 8.6 L Hct 29.6 L MCV 96 MCH 27.8 MCHC 29.1 L RDW Std Deviation 55.7 H Plt Count 366 Neut % (Auto) 68 Lymph % (Auto) 8 L Glascock % (Auto) 7 Eos % (Auto) 16 H Baso % (Auto) 1 Neut # (Auto) 13.2 H Lymph # (Auto) 1.6 Glascock # (Auto) 1.3 H Eos # (Auto) 3.1 H Baso # (Auto) 0.2 Immature Gran # (Auto) 0.20 H Absolute Nucleated RBC 0.02 H Immature Gran % 1 H Nucleated RBC % 0 Puncture Site Right Radial ABG pH 7.32 L ABG pCO2 49 H ABG pO2 120 H ABG HCO3 25 ABG O2 Saturation 99 H ABG Base Excess -1 FiO2 80 Sodium 154 H Potassium 4.7 D Chloride 120 H Carbon Dioxide 21.7 Anion Gap 12 BUN 78 H Creatinine 3.4 H Estim Creat Clear Calc 26.2 L eGFR 22 L BUN/Creatinine Ratio 23 H Glucose 201 H D Calculated Osmolality 334 H Calcium 9.1 Corrected Calcium 9.5 Total Bilirubin 0.7 AST 45 H ALT 126 H Alkaline Phosphatase 581 H Total Protein 7.2 Albumin 3.5 Globulin 3.7 H Albumin/Globulin Ratio 0.9 L Ur Random Creatinine Ur Random Sodium Ur Random Potassium Ur Random Chloride Phenytoin > 40.0 H* 04/15/25 16:00 WBC RBC Hgb Hct MCV MCH MCHC RDW Std Deviation Plt Count Neut % (Auto) Lymph % (Auto) Glascock % (Auto) Eos % (Auto) Baso % (Auto) Neut # (Auto) Lymph # (Auto) Glascock # (Auto) Eos # (Auto) Baso # (Auto) Immature Gran # (Auto) Absolute Nucleated RBC Immature Gran % Nucleated RBC % Puncture Site ABG pH ABG pCO2 ABG pO2 ABG HCO3 ABG O2 Saturation ABG Base Excess FiO2 Sodium Potassium Chloride Carbon Dioxide Anion Gap BUN Creatinine Estim Creat Clear Calc eGFR BUN/Creatinine Ratio Glucose Calculated Osmolality Calcium Corrected Calcium Total Bilirubin AST ALT Alkaline Phosphatase Total Protein Albumin Globulin Albumin/Globulin Ratio Ur Random Creatinine 31 Ur Random Sodium 65.5 Ur Random Potassium 24 Ur Random Chloride 50.4 L Phenytoin ABG Interpretation ABG results: 04/15/25 10:20 ABG pH 7.32 L ABG pCO2 49 H ABG pO2 120 H ABG HCO3 25 ABG O2 Saturation 99 H ABG Base Excess -1 Quality Measures Quality Measures VTE prophylaxis Assessment & Plan Assessment Current Active Medications: Generic Name Dose Route Start Last Admin Trade Name Freq PRN Reason Stop Dose Admin Acetaminophen 325 mg 04/13/25 21:45 Acetaminophen Lala 325 Mg/10 Ml Udc GT 05/13/25 21:44 Q4HR PRN Pain 1-3 Or Fever > 101 Apixaban 5 mg 04/14/25 09:00 04/15/25 08:14 Apixaban 2.5 Mg Tablet GT 05/05/25 08:59 5 mg BID KIT Administration Artificial Tears 1 drop 04/14/25 09:00 04/15/25 08:15 Artificial Tears 225 Drop/15 Ml Btl BOTH EYES 05/14/25 08:59 1 drop BID KIT Administration Baclofen 5 mg 04/13/25 22:00 04/15/25 13:34 Baclofen 10 Mg Tablet GT 05/13/25 21:59 5 mg TID KIT Administration Carbamide Peroxide 5 drop 04/13/25 22:00 04/13/25 23:38 Carbamide Peroxide Otic Lala 15 Ml Btl BOTH EARS 05/13/25 21:59 5 drops Q61D KIT Administration Collagenase 0 gm 04/14/25 21:00 04/14/25 21:36 Collagenase Oint 30 Gm Tube TOP 05/14/25 20:59 1 applicatio HS KIT Administration Fludrocortisone Acetate 0.1 mg 04/14/25 09:00 04/15/25 08:15 Fludrocortisone Acetate 0.1 Mg Tablet GT 05/14/25 08:59 0.1 mg DAILY KIT Administration Meropenem 1,000 mg/ Sodium 50 mls @ 100 mls/hr 04/14/25 21:00 04/15/25 08:10 Chloride IV 04/21/25 20:59 100 mls/hr Q12HR KIT Administration Lactated Ringer's 1,000 mls @ 100 mls/hr 04/14/25 10:14 04/15/25 08:15 Lactated Ringers IV 05/14/25 10:13 100 mls/hr .Q10H KIT Administration Vancomycin/Sodium Chloride 200 mls @ 120 mls/hr 04/15/25 22:00 Vancomycin/Ns 1 Gm Ivpb IV 04/22/25 21:59 Q24H KIT Protocol Lansoprazole 30 mg 04/16/25 09:00 Lansoprazole 30 Mg Tab.Nancy. GT 05/14/25 08:59 QDAY KIT Levetiracetam 1,000 mg 04/13/25 22:00 04/15/25 08:13 Levetiracetam Liqd 500 Mg/5 Ml Udc GT 05/13/25 21:59 1,000 mg BID KIT Administration Lorazepam 2 mg 04/13/25 21:51 Lorazepam 2 Mg/Ml Vial IVP 04/18/25 21:50 Q30M PRN Breakthrough Seizure Midodrine 10 mg 04/13/25 22:45 04/15/25 13:34 Midodrine 5 Mg Tablet GT 05/13/25 22:44 10 mg TID KIT Administration Ondansetron HCl 4 mg 04/13/25 21:42 Ondansetron Inj 2 Mg/Ml Inj 2 Ml IVP 05/13/25 21:41 Q6H PRN NAUSEA OR VOMITING Protocol Pharmacy Consult 1 each 04/14/25 09:00 Vancomycin Pharmacy To Dose 1 Each Each IV 05/14/25 08:59 QDAY PRN RX Sodium Chloride 5 ml 04/14/25 14:01 04/15/25 13:38 Sodium Chloride 0.9% Flush 10 Ml Syringe IVP 05/13/25 21:59 5 ml Q8HR KIT Administration Sodium Hypochlorite 473 ml 04/14/25 21:00 04/15/25 08:15 Sod Hypochlorite 1/4 Str 473 Ml Btl IRRIG 05/14/25 20:59 1 applicatio BID KIT Administration Plan 39-year-old male with a past medical history of 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, status post tracheostomy, mechanical ventilation, PEG tube, suprapubic catheter, right nephrostomy tube due to obstructive uropathy, and bilateral upper extremity DVT, presented to [facility] from in- house subacute for fever will be admitted for IV antibiotics for treatment of ventilator associated pneumonia. #Ventilator associated pneumonia #Urinary tract infection? Patient presenting with fevers noted at subacute facility, trach and PEG and high risk for aspiration secondary to being ventilated In the ED, patient has leukocytosis, elevated Pro-Chuck Chest x-ray shows bibasilar and right middle lobe pneumonia Urinalysis does show signs of infection with positive nitrites, leukocyte Esterase and +1 bacteria, suprapubic catheter Patient has a chronic history of recurring pneumonia showing that Plan: Patient started out on IV Zosyn 4.5 every 8 along with IV Vanco pharmacy to dose Will start Meropenem 1,000 mg IV Q12 hr due to would culture growth of Proteus with multiple resistances. Blood culture negative, urine culture and sputum cultures pending #Obstructive uropathy #ELDON on CKD Stage IV #hypernatremia Patient has a nephrostomy tube ([facility] at [facility]) as well as suprapubic catheter Patient had elevated creatinine of 3.2 which is above his baseline of around 1.6. Was Given 1L bolus in ED. Sodium elevated at 154 possibly due to hx of obstructive uropathy in setting of pneumonia vs a low volume picture. Plan: Nephrology consulted, appreciate recommendations Continue 1L LR @ 100mls/hr maintenance. Increased free water flushes to 350cc, will continue to monitor Renally dose medications Avoid nephrotoxic agents #Decubitus ulcer #History Osteomyelitis History of sacral wound culture grew ESBL Proteus on 01/08/2025 sensitive to Augmentin in the past Plan: Wound culture grew Proteus, will start Meropenem 1,000 mg IV Q12 hr Wound care referral #Seizure, patient history #Anoxic brain injury due to cardiac arrest Phenytoin level elevated >40. Poison control was contacted and recommended to ask lab if a more specific measurement can be done to get a better idea of the blood levels. They also recommended to monitor for respiratory depression, coma, seizures, rash Patient history as stated. Patient is nonverbal at baseline and is a&o x0. Med rec completed Plan: Continue with home medications Continue holding Phenytoin give continued elevated levels. Continue monitoring for symptoms mentioned above. Per poison control, will check Phenytoin levels BID #History of bilateral upper extremity DVT #History of factor V Leyden deficiency Patient with history of bilateral upper extremity DVT history of factor V Leyden deficiency, was swtiched to Eliquis 5mg GT BID on last discharge Plan: Continue Eliquis 5 mg GT bid #Anemia of chronic disease Patient's hemoglobin was 7.9 No signs of active bleeding. Plan: Continue to monitor #Adrenal insufficiency, suspected Patient takes 0.1 mg fludrocortisone at twice daily at home, suspect due to history of adrenal sufficiency although not clearly documented. Would explain patient's significant hypotension and continued soft blood pressure. Plan: Continuing home med: Fludrocortisone 0.1 mg GT daily Health management: Diet: Jevity Tube Feeds DVT ppx: Eliquis GI ppx: Protonix Lines: PIV, suprapubic catheter, right-sided nephrostomy tube, trach Code status: DNR Plan Discussed with Dr. Agatha Saldivar MD PGY-1 Internal Medicine
[2025-04-15] MEDS: COLLAGENASE OINT 30 GM TUBE TOP (20:28)
[2025-04-15] MEDS: VANCOMYCIN/NS 1 GM IVPB 200 ML IV (21:09)
[2025-04-16] VITALS (14 sets, daily range): BP systolic 90–111; BP diastolic 62–73; PULSE 80–103; RESP 13–24; TEMP 35.9–36.7; O2SAT 95–100; BMI 27.6
[2025-04-16] MEDS: MIDODRINE 5 MG TABLET 10 MG GT ×3 (06:06→21:41)
[2025-04-16] MEDS: RINGERS LACTATED 1000 ML 1,000 ML 100 ML IV (06:06)
[2025-04-16] MEDS: BACLOFEN 10 MG TABLET 5 MG GT ×3 (06:07→21:41)
--- NOTE | 2025-04-16 06:18 | PC.NURSE ---
DR. DANIELSON NOTIFIED OF DILANTIN LEVEL BID ORDER BUT NO TIME ORDER FOR THIS AM, STATED NO NEED TO ADD LEVEL THIS AM AND HE WILL LET THE DAY TIME MD KNOW. INFORMED OF LAST LEVEL DRAWN 04/15 1500. NO NEW ORDER.
[2025-04-16 06:45] LABS: Basophils # (Auto) 0.1 Thou/mm3 (0.0-0.2); Basophils % (Auto) 0 % (0-2.5); Eosinophils # (Auto) 3.1 Thou/mm3 (0.0-0.5); Eosinophils % (Auto) 18 % (0-10); Hematocrit 28.0 % (41.0-53.0); Immature Granulocytes Auto 0.25 Thou/mm3 (0.00-0.00); Lymphocytes # (Auto) 1.5 Thou/mm3 (1.0-4.8); Lymphocytes % (Auto) 8 % (10-50); Mean Corpuscular HGB Conc 28.9 g/dl (31.0-37.0); Mean Corpuscular Hemoglobin 28.2 pg (25.0-35.0); Mean Corpuscular Volume 98 fL (80-100); Monocytes # (Auto) 1.0 Thou/mm3 (0.0-0.8); Monocytes % (Auto) 6 % (0-12); Neutrophils # (Auto) 11.7 Thou/mm3 (1.8-7.7); Neutrophils % (Auto) 67 % (37-80); Nucleated Red Blood Cell # 0.00 Thou/mm3 (0.00-0.00); Nucleated Red Blood Cell % 0 /100 WBC (0); Platelet Count 264 Thou/mm3 (140-440); RDW Standard Deviation 56.3 fL (35.1-43.9); Red Blood Count 2.87 Miln/mm3 (4.50-5.90); White Blood Count 17.6 Thou/mm3 (3.8-10.6)
[2025-04-16 06:46] LABS: Hemoglobin 8.1 g/dL (13.5-16.0)
[2025-04-16 06:52] LABS: Path Review Blood Smear Sent to Pathologist
[2025-04-16 07:17] LABS: Alanine Aminotransferase 94 U/L (10-49); Albumin, Serum 3.3 gm/dL (3.5-5.0); Albumin/Globulin Ratio 0.9 (1.2-2.2); Alkaline Phosphatase 564 U/L (46-116); Anion Gap 14 (7-16); Aspartate Amino Transferase 34 U/L (0-34); BUN/Creatinine Ratio 22 Ratio (12-20); Bilirubin,Total 0.3 mg/dL (0.3-1.2); Blood Urea Nitrogen 71 mg/dL (9-23); Calcium 9.0 mg/dL (8.3-10.6); Calcium (Corrected) 9.6 mg/dL (8.5-10.1); Carbon Dioxide 22.2 mMol/L (20.0-31.0); Chloride 121 mMol/L (98-107); Creatinine (Component) 3.2 mg/dL (0.6-1.3); Estimated Creatinine Clearance 27.9 mL/min (>60); Globulin 3.6 gm/dL (2.3-3.5); Glucose 184 mg/dL (74-106); Osmolality,Calculated 336 (275-295); Potassium 4.3 mMol/L (3.4-5.1); Sodium 157 mMol/L (136-145); Total Protein 6.9 gm/dL (5.7-8.2); eGFR 24 See Note
--- NOTE | 2025-04-16 08:47 | PD.RESPRO ---
Documentation for date of: 04/16/25 Subjective Subjective Interval history: Overnight events: No acute events overnight. Patient was seen and examined at bedside. AM vitals and labs reviewed. BUN 71, Cr 3.2, eGFR 24. The patient appeared to be more awake compared to yesterday, but still not responding to questions or commands. Mechanical ventilation and trach tube in place. Ins/Outs 3770/3400. Review of systems otherwise negative except for what is mentioned above. Exam Vital Signs Temp Pulse Resp BP Pulse Ox O2 Del Method O2 Flow Rate 97.2 F 100 18 111/73 98 Mechanical Ventilation 4 04/16/25 04:00 04/16/25 07:18 04/16/25 04:00 04/16/25 06:06 04/16/25 07:18 04/16/25 04:00 04/16/25 04:00 FiO2 70 04/16/25 07:18 Narrative Exam Physical Exam: General: Alert, no acute distress. Head: Normocephalic, atraumatic. Eye: Normal conjunctiva, PERRL. Cardiovascular: Regular rate and rhythm, no murmur, +S1/S2. Respiratory: Mechanicl breath sounds heard throughout, no crackles, no wheezing. Gastrointestinal: Soft, nontender, non-distended. No guarding or rebound tenderness. Extremities: No edema, no cyanosis, no clubbing. 2+ radial pulse bilaterally, 2+ pedal pulse bilaterally. Neuro: No focal deficits observed. Conversant, moving all extremities. No overt cerebellar signs/incoordination. Psychiatric: Cooperative, appropriate affect. Objective Labs 04/17/25 02:50 04/17/25 08:05 Labs: Laboratory Results - last 24 hr 04/15/25 04/15/25 04/15/25 10:20 15:38 16:00 WBC RBC Hgb Hct MCV MCH MCHC RDW Std Deviation Plt Count Neut % (Auto) Lymph % (Auto) [place] % (Auto) Eos % (Auto) Baso % (Auto) Neut # (Auto) Lymph # (Auto) [place] # (Auto) Eos # (Auto) Baso # (Auto) Immature Gran # (Auto) Absolute Nucleated RBC Immature Gran % Nucleated RBC % Smear Path Review Puncture Site Right Radial ABG pH 7.32 L ABG pCO2 49 H ABG pO2 120 H ABG HCO3 25 ABG O2 Saturation 99 H ABG Base Excess -1 FiO2 80 Sodium Potassium Chloride Carbon Dioxide Anion Gap BUN Creatinine Estim Creat Clear Calc eGFR BUN/Creatinine Ratio Glucose Calculated Osmolality Calcium Corrected Calcium Total Bilirubin AST ALT Alkaline Phosphatase Total Protein Albumin Globulin Albumin/Globulin Ratio Ur Random Creatinine 31 Ur Random Sodium 65.5 Ur Random Potassium 24 Ur Random Chloride 50.4 L Phenytoin > 40.0 H* 04/16/25 04:46 WBC 17.6 H RBC 2.87 L Hgb 8.1 L Hct 28.0 L MCV 98 MCH 28.2 MCHC 28.9 L RDW Std Deviation 56.3 H Plt Count 264 D Neut % (Auto) 67 Lymph % (Auto) 8 L [place] % (Auto) 6 Eos % (Auto) 18 H Baso % (Auto) 0 Neut # (Auto) 11.7 H Lymph # (Auto) 1.5 [place] # (Auto) 1.0 H Eos # (Auto) 3.1 H Baso # (Auto) 0.1 Immature Gran # (Auto) 0.25 H Absolute Nucleated RBC 0.00 Immature Gran % 1 H Nucleated RBC % 0 Smear Path Review Sent to Pathologist Puncture Site ABG pH ABG pCO2 ABG pO2 ABG HCO3 ABG O2 Saturation ABG Base Excess FiO2 Sodium 157 H Potassium 4.3 Chloride 121 H* Carbon Dioxide 22.2 Anion Gap 14 BUN 71 H Creatinine 3.2 H Estim Creat Clear Calc 27.9 L eGFR 24 L BUN/Creatinine Ratio 22 H Glucose 184 H Calculated Osmolality 336 H Calcium 9.0 Corrected Calcium 9.6 Total Bilirubin 0.3 AST 34 ALT 94 H Alkaline Phosphatase 564 H Total Protein 6.9 Albumin 3.3 L Globulin 3.6 H Albumin/Globulin Ratio 0.9 L Ur Random Creatinine Ur Random Sodium Ur Random Potassium Ur Random Chloride Phenytoin ABG Interpretation ABG results: 04/15/25 10:20 ABG pH 7.32 L ABG pCO2 49 H ABG pO2 120 H ABG HCO3 25 ABG O2 Saturation 99 H ABG Base Excess -1 Quality Measures Quality Measures VTE prophylaxis Assessment & Plan Assessment Current Active Medications: Generic Name Dose Route Start Last Admin Trade Name Freq PRN Reason Stop Dose Admin Acetaminophen 325 mg 04/13/25 21:45 Acetaminophen Lala 325 Mg/10 Ml Udc GT 05/13/25 21:44 Q4HR PRN Pain 1-3 Or Fever > 101 Apixaban 5 mg 04/14/25 09:00 04/15/25 20:31 Apixaban 2.5 Mg Tablet GT 05/05/25 08:59 5 mg BID KIT Administration Artificial Tears 1 drop 04/14/25 09:00 04/15/25 20:28 Artificial Tears 225 Drop/15 Ml Btl BOTH EYES 05/14/25 08:59 1 drop BID KIT Administration Baclofen 5 mg 04/13/25 22:00 04/16/25 06:07 Baclofen 10 Mg Tablet GT 05/13/25 21:59 5 mg TID KIT Administration Carbamide Peroxide 5 drop 04/13/25 22:00 04/13/25 23:38 Carbamide Peroxide Otic Lala 15 Ml Btl BOTH EARS 05/13/25 21:59 5 drops Q61D KIT Administration Collagenase 0 gm 04/14/25 21:00 04/15/25 20:28 Collagenase Oint 30 Gm Tube TOP 05/14/25 20:59 1 applicatio HS KIT Administration Fludrocortisone Acetate 0.1 mg 04/14/25 09:00 04/15/25 08:15 Fludrocortisone Acetate 0.1 Mg Tablet GT 05/14/25 08:59 0.1 mg DAILY KIT Administration Meropenem 1,000 mg/ Sodium 50 mls @ 100 mls/hr 04/14/25 21:00 04/15/25 21:00 Chloride IV 04/21/25 20:59 Infused Q12HR KIT Infusion Vancomycin/Sodium Chloride 200 mls @ 120 mls/hr 04/15/25 22:00 04/15/25 22:50 Vancomycin/Ns 1 Gm Ivpb IV 04/22/25 21:59 Infused Q24H KIT Infusion Protocol Lactated Ringer's 1,000 mls @ 120 mls/hr 04/16/25 08:31 Lactated Ringers IV 05/16/25 08:30 .Q8H20M KIT Lansoprazole 30 mg 04/16/25 09:00 Lansoprazole 30 Mg Tab.Rap. GT 05/14/25 08:59 QDAY KIT Levetiracetam 1,000 mg 04/13/25 22:00 04/15/25 20:31 Levetiracetam Liqd 500 Mg/5 Ml Udc GT 05/13/25 21:59 1,000 mg BID KIT Administration Lorazepam 2 mg 04/13/25 21:51 Lorazepam 2 Mg/Ml Vial IVP 04/18/25 21:50 Q30M PRN Breakthrough Seizure Midodrine 10 mg 04/13/25 22:45 04/16/25 06:06 Midodrine 5 Mg Tablet GT 05/13/25 22:44 10 mg TID KIT Administration Ondansetron HCl 4 mg 04/13/25 21:42 Ondansetron Inj 2 Mg/Ml Inj 2 Ml IVP 05/13/25 21:41 Q6H PRN NAUSEA OR VOMITING Protocol Pharmacy Consult 1 each 04/14/25 09:00 Vancomycin Pharmacy To Dose 1 Each Each IV 05/14/25 08:59 QDAY PRN RX Sodium Chloride 5 ml 04/14/25 14:01 04/16/25 06:10 Sodium Chloride 0.9% Flush 10 Ml Syringe IVP 05/13/25 21:59 5 ml Q8HR KIT Administration Sodium Hypochlorite 473 ml 04/14/25 21:00 04/15/25 20:32 Sod Hypochlorite 1/4 Str 473 Ml Btl IRRIG 05/14/25 20:59 1 applicatio BID KIT Administration Plan Mr. Smith is a 39 year old male with a relevant medical history of anoxic brain injury, s/p tracheotomy, mechanical ventilation, and right nephrostomy tube for obstructive uropathy, who presented with a fever. The patient was admitted for use of IV antibiotics in suspicion of ventilator associated pneumonia. Nephrology was consulted due to concerns of ELDON on CKD IV. #ELDON on CKD IV #Obstructive uropathy #Hypernatremia Patient was admitted with BUN of 102, Cr 3.4, and eGFR of 22. Given the patient's prior history of obstructive uropathy, ELDON may be due to ATN 2/2 drops in BP as recorded in EMR prior to admission to [facility]. - Renally adjust medications. - IV fluid resuscitation as tolerated. - Consult Urology for management of nephrostomy tube - Nephrology will continue to follow Patient was discussed with the Nephrology attending, Dr. Duran. Thank you for allowing us to participate in the care of this patient. Salazar Smalls, PGY-1 Attending Provider Attestation/Addendum Pt is seen and examined. labs and investigations are reviewed. Agree with assessment and plan and findings by resident. Kevin Duran MD
[2025-04-16] MEDS: LANSOPRAZOLE 30 MG TAB.RAP.DR GT (09:03)
[2025-04-16] MEDS: APIXABAN 2.5 MG TABLET 5 MG GT ×2 (09:03→21:40)
[2025-04-16] MEDS: levETIRAcetam LIQD 500 MG/5 ML UDC 1000 MG GT ×2 (09:03→21:40)
[2025-04-16] MEDS: MEROPENEM INJ 1,000 MG in SODIUM CHLORIDE 0.9% (Popper) 50 ML 100 MG IV ×2 (09:04→21:40)
[2025-04-16] MEDS: FLUDROCORTISONE ACETATE 0.1 MG TABLET GT (09:04)
[2025-04-16] MEDS: RINGERS LACTATED 1000 ML 1,000 ML 120 ML IV (09:04)
[2025-04-16] MEDS: Artificial Tears 225 DROP/15 ML BTL BOTH EYES ×2 (09:05→21:49)
[2025-04-16] MEDS: SOD HYPOCHLORITE 1/4 STR 473 ML BTL IRRIG ×2 (09:05→21:45)
[2025-04-16 09:33] LABS: B-Type Natriuretic Peptide < 20 pg/mL (0-100)
--- NOTE | 2025-04-16 11:29 | PC.SS ---
Rounding: Pt may need Urology consult, DC plan back to [facility] when stable
[2025-04-16] MEDS: DEXTROSE 5%-WATER 1,000 ML 100 ML IV (12:34)
--- NOTE | 2025-04-16 14:18 | EKG_ITS ---
[facility] Test Date: 2025-04-16 Pat Name: KETTY BATES Department: Room: S276A Gender: Male Technical Training Specialist: JAZMINE : 1985 Requested By: Terrence Lira Order Number: [id number] Reading MD: Terrence Lira Measurements Intervals [place] Rate: 102 P: 50 [place]: 137 QRS: 68 QRSD: 74 T: 74 QT: 345 QTc: 451 Interpretive Statements SINUS TACHYCARDIA INDETERMINATE AXIS LOW QRS VOLTAGE ANTERIOR MYOCARDIAL INFARCTION , OF INDETERMINATE AGE Compared to ECG 04/13/2025 14:36:42 Sinus rhythm no longer present ST (T wave) deviation no longer present Myocardial infarct finding still present /store/S0/[id number]/[id number].pdf
--- NOTE | 2025-04-16 14:19 | PC.NURSE ---
Received phone call from poison control regarding pts Dilantin levels, they stated Dilantin levels need to be drawn BID, last level was drawn 04/15 @1500. Lab was notified and order needs to be changed by MD to show up BID on labs end. They are also requesting for a repeat EKG to be ordered to monitor Dilantin toxicity, Dr. Lira notified. Poison control also mentioned medication pt is taking (Florinef) can cause hypernatremia, they are requesting a body trimmer upholsterer consult to discuss whether medication should be continued or not, Dr. Lira notified and they are consulting with Dr. Duran. Poison control also mentioned Dilantin level needs to be diluted in order to get an accurate level, Tereza in lab was notified and will discuss this with her lead to see how they can proceed with that.
--- NOTE | 2025-04-16 14:37 | PC.NURSE ---
Received phone call from Tereza in lab, they will be able to dilute the Dilantin level manually but it will only be a ballpark number not an exact or accurate number.
[2025-04-16 16:12] LABS: Phenytoin (Dilantin) 31.9 mcg/mL
--- NOTE | 2025-04-16 16:33 | PD.RESPRO ---
Documentation for date of: 04/16/25 Subjective Subjective Interval history: Patient was seen and examined at the bedside. No acute overnight events reported. Patient has spontaneous eye movement however does not track. Labs showed worsening hypernatremia with ELDON. Poison control notified us to perform EKG and continue phenytoin serum levels every 12 hourly. They wanted to monitor with EKG since patient is in vegetative state. CMP was reordered due to worsening of kidney functions.Patient has copious amount of secretions and appeared dehyrdated. Will likely follow-up with serum phenytoin levels every 12 hourly and BMP every 6 hourly. Recent phenytoin level was 31.9.EKG showed sinus tachycardia with QTc 451. Continue water flushes 400 mL every 3 hourly and D5W at 120 cc as water deficit was 3.7 L. 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 dry mucus membrane. EOMI, clear conjunctiva, oropharynx clear. NECK: Supple without lymphadenopathy. No stiffness or restricted ROM. HEART: sinus tacycardia with regular rhythm, normal S1/S2, no m/r/g LUNGS: coarse crackles with copious thick secretions ABDOMEN: Soft, nontender, nondistended with good bowel sounds heard.PEG tube EXTREMITIES: Without cyanosis, clubbing or edema. 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 No discoloration/rashes/edema/amputations. +Pedal pulses present B/L. Objective Labs 04/17/25 02:50 04/17/25 08:05 Labs: Laboratory Results - last 24 hr 04/15/25 04/15/25 04/16/25 15:38 16:00 04:46 WBC 17.6 H RBC 2.87 L Hgb 8.1 L Hct 28.0 L MCV 98 MCH 28.2 MCHC 28.9 L RDW Std Deviation 56.3 H Plt Count 264 D Neut % (Auto) 67 Lymph % (Auto) 8 L [place] % (Auto) 6 Eos % (Auto) 18 H Baso % (Auto) 0 Neut # (Auto) 11.7 H Lymph # (Auto) 1.5 [place] # (Auto) 1.0 H Eos # (Auto) 3.1 H Baso # (Auto) 0.1 Immature Gran # (Auto) 0.25 H Absolute Nucleated RBC 0.00 Immature Gran % 1 H Nucleated RBC % 0 Smear Path Review Sent to Pathologist Sodium 157 H Potassium 4.3 Chloride 121 H* Carbon Dioxide 22.2 Anion Gap 14 BUN 71 H Creatinine 3.2 H Estim Creat Clear Calc 27.9 L eGFR 24 L BUN/Creatinine Ratio 22 H Glucose 184 H Calculated Osmolality 336 H Calcium 9.0 Corrected Calcium 9.6 Total Bilirubin 0.3 AST 34 ALT 94 H Alkaline Phosphatase 564 H B-Natriuretic Peptide < 20 Total Protein 6.9 Albumin 3.3 L Globulin 3.6 H Albumin/Globulin Ratio 0.9 L Ur Random Creatinine 31 Ur Random Sodium 65.5 Ur Random Potassium 24 Ur Random Chloride 50.4 L Phenytoin > 40.0 H* 04/16/25 14:50 WBC RBC Hgb Hct MCV MCH MCHC RDW Std Deviation Plt Count Neut % (Auto) Lymph % (Auto) [place] % (Auto) Eos % (Auto) Baso % (Auto) Neut # (Auto) Lymph # (Auto) [place] # (Auto) Eos # (Auto) Baso # (Auto) Immature Gran # (Auto) Absolute Nucleated RBC Immature Gran % Nucleated RBC % Smear Path Review Sodium Potassium Chloride Carbon Dioxide Anion Gap BUN Creatinine Estim Creat Clear Calc eGFR BUN/Creatinine Ratio Glucose Calculated Osmolality Calcium Corrected Calcium Total Bilirubin AST ALT Alkaline Phosphatase B-Natriuretic Peptide Total Protein Albumin Globulin Albumin/Globulin Ratio Ur Random Creatinine Ur Random Sodium Ur Random Potassium Ur Random Chloride Phenytoin 31.9 H* ABG Interpretation ABG results: 04/15/25 10:20 ABG pH 7.32 L ABG pCO2 49 H ABG pO2 120 H ABG HCO3 25 ABG O2 Saturation 99 H ABG Base Excess -1 Quality Measures Quality Measures VTE prophylaxis Assessment & Plan Assessment Current Active Medications: Generic Name Dose Route Start Last Admin Trade Name Freq PRN Reason Stop Dose Admin Acetaminophen 325 mg 04/13/25 21:45 Acetaminophen Lala 325 Mg/10 Ml Udc GT 05/13/25 21:44 Q4HR PRN Pain 1-3 Or Fever > 101 Apixaban 5 mg 04/14/25 09:00 04/16/25 09:03 Apixaban 2.5 Mg Tablet GT 05/05/25 08:59 5 mg BID KIT Administration Artificial Tears 1 drop 04/14/25 09:00 04/16/25 09:05 Artificial Tears 225 Drop/15 Ml Btl BOTH EYES 05/14/25 08:59 1 drop BID KIT Administration Baclofen 5 mg 04/13/25 22:00 04/16/25 13:21 Baclofen 10 Mg Tablet GT 05/13/25 21:59 5 mg TID KIT Administration Carbamide Peroxide 5 drop 04/13/25 22:00 04/13/25 23:38 Carbamide Peroxide Otic Lala 15 Ml Btl BOTH EARS 05/13/25 21:59 5 drops Q61D KIT Administration Collagenase 0 gm 04/14/25 21:00 04/15/25 20:28 Collagenase Oint 30 Gm Tube TOP 05/14/25 20:59 1 applicatio HS KIT Administration Fludrocortisone Acetate 0.1 mg 04/14/25 09:00 04/16/25 09:04 Fludrocortisone Acetate 0.1 Mg Tablet GT 05/14/25 08:59 0.1 mg DAILY KIT Administration Meropenem 1,000 mg/ Sodium 50 mls @ 100 mls/hr 04/14/25 21:00 04/16/25 09:04 Chloride IV 04/21/25 20:59 100 mls/hr Q12HR KIT Administration Vancomycin/Sodium Chloride 200 mls @ 120 mls/hr 04/15/25 22:00 04/15/25 22:50 Vancomycin/Ns 1 Gm Ivpb IV 04/22/25 21:59 Infused Q24H KIT Infusion Protocol Dextrose 1,000 mls @ 100 mls/hr 04/16/25 10:45 04/16/25 12:34 D5w IV 05/16/25 10:44 100 mls/hr .Q10H KIT Administration Lansoprazole 30 mg 04/16/25 09:00 04/16/25 09:03 Lansoprazole 30 Mg Tab.Rap. GT 05/14/25 08:59 30 mg QDAY KIT Administration Levetiracetam 1,000 mg 04/13/25 22:00 04/16/25 09:03 Levetiracetam Liqd 500 Mg/5 Ml Udc GT 05/13/25 21:59 1,000 mg BID KIT Administration Lorazepam 2 mg 04/13/25 21:51 Lorazepam 2 Mg/Ml Vial IVP 04/18/25 21:50 Q30M PRN Breakthrough Seizure Midodrine 10 mg 04/13/25 22:45 04/16/25 13:21 Midodrine 5 Mg Tablet GT 05/13/25 22:44 10 mg TID KIT Administration Ondansetron HCl 4 mg 04/13/25 21:42 Ondansetron Inj 2 Mg/Ml Inj 2 Ml IVP 05/13/25 21:41 Q6H PRN NAUSEA OR VOMITING Protocol Pharmacy Consult 1 each 04/14/25 09:00 Vancomycin Pharmacy To Dose 1 Each Each IV 05/14/25 08:59 QDAY PRN RX Sodium Chloride 5 ml 04/14/25 14:01 04/16/25 13:30 Sodium Chloride 0.9% Flush 10 Ml Syringe IVP 05/13/25 21:59 5 ml Q8HR KIT Administration Sodium Hypochlorite 473 ml 04/14/25 21:00 04/16/25 09:05 Sod Hypochlorite 1/4 Str 473 Ml Btl IRRIG 05/14/25 20:59 1 applicatio BID KIT Administration Plan This 39-year-old male with a past medical history of 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, status post tracheostomy, mechanical ventilation, PEG tube, suprapubic catheter, right nephrostomy tube due to obstructive uropathy, and bilateral upper extremity DVT, presented to [facility] from in-house subacute for fever will be admitted for IV antibiotics for treatment of ventilator associated pneumonia. #Phenytoin toxicity likely due to ?medication error #Hx of seizure, patient history #Anoxic brain injury post cardiac arrest in chronic vegetative state Phenytoin level elevated >40. Poison control was contacted and recommended to ask lab if a more specific measurement can be done to get a better idea of the blood levels. They also recommended to monitor for respiratory depression, coma, seizures, rash Patient history as stated. Patient is nonverbal at baseline and is a&o x0. Med rec completed Plan: Continue with home medications Continue holding Phenytoin give continued elevated levels. Continue monitoring for symptoms mentioned above. Per poison control, will check Phenytoin levels every 12 hourly Monitoring with EKG, BMP and phenytoin levels #Acute on chronic hypoxic resp failure on mech vent #Ventilator associated pneumonia Patient presenting with fevers noted at subacute facility, trach and PEG and high risk for aspiration secondary to being ventilated In the ED, patient has leukocytosis, elevated Pro-Chuck Chest x-ray shows bibasilar and right middle lobe pneumonia Urinalysis does show signs of infection with positive nitrites, leukocyte Esterase and +1 bacteria, suprapubic catheter Patient has a chronic history of recurring pneumonia showing that Plan: Continue meropenem and vancomycin Sputum culture growing ESBL Proteus mirabilis sensitive to meropenem. MRSA pending. Blood cultures showing no growth. Urine cultures showed no growth. Monitor for fever spikes #ELDON on CKD Stage 3B #Hyperosmolar hypernatremia and hyperchloremia #Hx Obstructive uropathy with neurogenic bladder with Rt nephrostomy tube+ suprapubic cath -Related to phenytoin toxicity vs Medications Patient has a nephrostomy tube (placed at [facility]) as well as suprapubic catheter Patient had elevated creatinine of 3.2 which is above his baseline of around 1.6. Was Given 1L bolus in ED. Sodium elevated at 154 possibly due to hx of obstructive uropathy in setting of pneumonia vs a low volume picture. Water defecit 3.7 L Retroperitoneal ultrasound showed bilateral hydronephrosis. Urologist said that no acute intervention required at this point. Plan: Nephrology consulted, appreciate recommendations Continue D5W at 120 cc/h Increased free water flushes to 350cc every 3 hourly, will continue to monitor Goal of sodium correction 8 to 10 mEq in 24 hours Renally dose medications Avoid nephrotoxic agents #Decubitus ulcer #History Osteomyelitis History of sacral wound culture grew ESBL Proteus on 01/08/2025 sensitive to Augmentin in the past Plan: Wound culture grew Proteus, continue meropenem 1,000 mg IV Q12 hr Wound care referral #History of bilateral upper extremity DVT #History of factor V Leyden deficiency Patient with history of bilateral upper extremity DVT history of factor V Leyden deficiency, was swtiched to Eliquis 5mg GT BID on last discharge Plan: Continue Eliquis 5 mg GT bid #Anemia of chronic disease Patient's hemoglobin was 7.9 No signs of active bleeding. Plan: Continue to monitor #Adrenal insufficiency, suspected Patient takes 0.1 mg fludrocortisone at twice daily at home, suspect due to history of adrenal sufficiency although not clearly documented. Would explain patient's significant hypotension and continued soft blood pressure. Plan: Continuing home med: Fludrocortisone 0.1 mg GT daily Health management: Diet: Jevity Tube Feeds with water flushes DVT ppx: Eliquis 5 mg GT BID GI ppx: Protonix Lines: PIV, suprapubic catheter, right-sided nephrostomy tube, trach Code status: DNR Patient was seen and discussed with attending physician,Dr Myrna Lira MD PGY-3 Attending Provider Attestation/Addendum I, Nuris Norris DO, attest that I was physically present for the purdy portions of the service and evaluated the patient with the resident and I reviewed and discussed the case with the resident and agree with the resident's findings and plans of care as documented above Patient seen and eval this a.m. patient reportedly at baseline tracks with eyes, but currently only blinks spontaneously. Patient appears lethargic. Sodium and chloride uptrending. He continues to have coarse rhonchi and noted to have thick secretions from trach. Phenytoin levels remain elevated. Renal function appears to be improving. Will switch IV fluids from LR to D5 water due to hypernatremia. Will increase free water flushes and check sodium every 6 hours. Phenytoin toxicity likely secondary to acute kidney injury. Patient noted to have bilateral mild hydronephrosis on renal ultrasound. Discussed with urology, this is is a common finding with patient's with suprapubic catheter as well as neurogenic bladder. Patient does have a nephrostomy tube due to previous history of obstructive uropathy per chart review and was done at [facility]. Patient will have to follow-up outpatient to remove the nephrostomy tube. Per poison control, continue to check phenytoin level twice a day and check EKG as patient is in a vegetative state. Continue with IV antibiotics for pneumonia.
[2025-04-16 17:13] LABS: Anion Gap 13 (7-16); BUN/Creatinine Ratio 21 Ratio (12-20); Blood Urea Nitrogen 66 mg/dL (9-23); Calcium 8.6 mg/dL (8.3-10.6); Carbon Dioxide 21.6 mMol/L (20.0-31.0); Chloride 121 mMol/L (98-107); Creatinine (Component) 3.1 mg/dL (0.6-1.3); Estimated Creatinine Clearance 28.8 mL/min (>60); Glucose 172 mg/dL (74-106); Osmolality,Calculated 332 (275-295); Potassium 4.2 mMol/L (3.4-5.1); Sodium 156 mMol/L (136-145); eGFR 25 See Note
[2025-04-16] MEDS: DEXTROSE 5%-WATER 1,000 ML 120 ML IV ×2 (18:32→20:50)
[2025-04-16] MEDS: COLLAGENASE OINT 30 GM TUBE TOP (21:46)
[2025-04-16 22:44] LABS: Anion Gap 10 (7-16); BUN/Creatinine Ratio 23 Ratio (12-20); Blood Urea Nitrogen 67 mg/dL (9-23); Calcium 9.1 mg/dL (8.3-10.6); Carbon Dioxide 25.0 mMol/L (20.0-31.0); Chloride 118 mMol/L (98-107); Creatinine (Component) 2.9 mg/dL (0.6-1.3); Estimated Creatinine Clearance 30.8 mL/min (>60); Glucose 237 mg/dL (74-106); Osmolality,Calculated 330 (275-295); Potassium 4.1 mMol/L (3.4-5.1); Sodium 153 mMol/L (136-145); eGFR 27 See Note
[2025-04-16 23:44] LABS: Vancomycin,Trough 32.6 mcg/mL (5.0-10.0)
[2025-04-17] VITALS (15 sets, daily range): BP systolic 90–113; BP diastolic 62–72; PULSE 94–122; RESP 20–31; TEMP 36.1–36.8; O2SAT 95–100; BMI 27.7
[2025-04-17 03:19] LABS: Basophils # (Auto) 0.1 Thou/mm3 (0.0-0.2); Basophils % (Auto) 0 % (0-2.5); Eosinophils # (Auto) 3.2 Thou/mm3 (0.0-0.5); Eosinophils % (Auto) 18 % (0-10); Hematocrit 29.7 % (41.0-53.0); Immature Granulocytes Auto 0.27 Thou/mm3 (0.00-0.00); Lymphocytes # (Auto) 1.5 Thou/mm3 (1.0-4.8); Lymphocytes % (Auto) 8 % (10-50); Mean Corpuscular HGB Conc 29.0 g/dl (31.0-37.0); Mean Corpuscular Hemoglobin 28.1 pg (25.0-35.0); Mean Corpuscular Volume 97 fL (80-100); Monocytes # (Auto) 1.3 Thou/mm3 (0.0-0.8); Monocytes % (Auto) 7 % (0-12); Neutrophils # (Auto) 11.3 Thou/mm3 (1.8-7.7); Neutrophils % (Auto) 65 % (37-80); Nucleated Red Blood Cell # 0.00 Thou/mm3 (0.00-0.00); Nucleated Red Blood Cell % 0 /100 WBC (0); Platelet Count 321 Thou/mm3 (140-440); RDW Standard Deviation 56.0 fL (35.1-43.9); Red Blood Count 3.06 Miln/mm3 (4.50-5.90); White Blood Count 17.6 Thou/mm3 (3.8-10.6)
[2025-04-17 03:27] LABS: Hemoglobin 8.6 g/dL (13.5-16.0)
[2025-04-17 03:37] LABS: Alanine Aminotransferase 79 U/L (10-49); Albumin, Serum 3.3 gm/dL (3.5-5.0); Albumin/Globulin Ratio 0.9 (1.2-2.2); Alkaline Phosphatase 581 U/L (46-116); Anion Gap 14 (7-16); Aspartate Amino Transferase 28 U/L (0-34); BUN/Creatinine Ratio 23 Ratio (12-20); Bilirubin,Total 0.3 mg/dL (0.3-1.2); Blood Urea Nitrogen 62 mg/dL (9-23); Calcium 8.9 mg/dL (8.3-10.6); Calcium (Corrected) 9.5 mg/dL (8.5-10.1); Carbon Dioxide 24.4 mMol/L (20.0-31.0); Chloride 114 mMol/L (98-107); Creatinine (Component) 2.7 mg/dL (0.6-1.3); Estimated Creatinine Clearance 33.0 mL/min (>60); Globulin 3.7 gm/dL (2.3-3.5); Glucose 185 mg/dL (74-106); Magnesium 1.9 mg/dL (1.6-2.6); Osmolality,Calculated 324 (275-295); Phosphorous 3.1 mg/dL (2.4-5.1); Potassium 3.9 mMol/L (3.4-5.1); Sodium 152 mMol/L (136-145); Total Protein 7.0 gm/dL (5.7-8.2); eGFR 29 See Note
[2025-04-17 03:39] LABS: Phenytoin (Dilantin) 31.0 mcg/mL
[2025-04-17] MEDS: MIDODRINE 5 MG TABLET 10 MG GT ×3 (05:23→21:38)
[2025-04-17] MEDS: BACLOFEN 10 MG TABLET 5 MG GT ×3 (05:24→21:38)
[2025-04-17] MEDS: DEXTROSE 5%-WATER 1,000 ML 120 ML IV ×2 (05:32→15:04)
[2025-04-17 08:39] LABS: Anion Gap 14 (7-16); BUN/Creatinine Ratio 20 Ratio (12-20); Blood Urea Nitrogen 55 mg/dL (9-23); Calcium 8.8 mg/dL (8.3-10.6); Carbon Dioxide 22.6 mMol/L (20.0-31.0); Chloride 112 mMol/L (98-107); Creatinine (Component) 2.7 mg/dL (0.6-1.3); Estimated Creatinine Clearance 33.1 mL/min (>60); Glucose 190 mg/dL (74-106); Osmolality,Calculated 316 (275-295); Potassium 4.5 mMol/L (3.4-5.1); Sodium 149 mMol/L (136-145); eGFR 29 See Note
[2025-04-17] MEDS: Artificial Tears 225 DROP/15 ML BTL BOTH EYES ×2 (09:30→21:41)
[2025-04-17] MEDS: LANSOPRAZOLE 30 MG TAB.RAP.DR GT (09:57)
[2025-04-17] MEDS: levETIRAcetam LIQD 500 MG/5 ML UDC 1000 MG GT ×2 (09:57→21:39)
[2025-04-17] MEDS: APIXABAN 2.5 MG TABLET 5 MG GT ×2 (09:57→21:38)
[2025-04-17] MEDS: FLUDROCORTISONE ACETATE 0.1 MG TABLET GT (09:57)
[2025-04-17] MEDS: MEROPENEM INJ 1,000 MG in SODIUM CHLORIDE 0.9% (Popper) 50 ML 100 MG IV ×2 (09:57→21:38)
[2025-04-17] MEDS: SOD HYPOCHLORITE 1/4 STR 473 ML BTL IRRIG ×2 (11:09→21:40)
[2025-04-17 15:14] LABS: Phenytoin (Dilantin) 24.1 mcg/mL
--- NOTE | 2025-04-17 15:36 | PD.RESPRO ---
Documentation for date of: 04/17/25 Subjective Subjective Interval history: Patient was seen and examined at the bedside. No acute overnight events were reported. Patient's aunt who is patient's family decision-maker was updated regarding patient's current condition. Patient had spontaneous eye opening and appeared better than yesterday. Phenytoin levels are trending down. Will continue with vancomycin and meropenem. White count slightly improved. Hemoglobin stable. Electrolyte panel showed improvement in sodium. Kidney function slightly improved. Sodium at 149 potassium 4.5. Creatinine 2.7. Will continue with antibiotic course. Continue with D5W at 120 cc/h and water flushes. All labs and orders were reviewed. 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 ventilator HEENT: NC, AT. dry mucus membrane. EOMI, clear conjunctiva, oropharynx clear. NECK: Supple without lymphadenopathy. No stiffness or restricted ROM. HEART: sinus tacycardia with regular rhythm, normal S1/S2, no m/r/g LUNGS: coarse crackles with copious thick secretions ABDOMEN: Soft, nontender, nondistended with good bowel sounds heard.PEG tube EXTREMITIES: Without cyanosis, clubbing or edema. 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 ventilator : Rt nephrotosmy tube in place Skin: Sacral wounds Grade III. No discoloration/rashes/edema/amputations. +Pedal pulses present B/L. Objective Labs 04/18/25 02:46 04/18/25 02:46 Labs: Laboratory Results - last 24 hr 04/16/25 04/16/25 04/17/25 14:50 21:48 02:50 WBC 17.6 H RBC 3.06 L Hgb 8.6 L Hct 29.7 L MCV 97 MCH 28.1 MCHC 29.0 L RDW Std Deviation 56.0 H Plt Count 321 D Neut % (Auto) 65 Lymph % (Auto) 8 L [place] % (Auto) 7 Eos % (Auto) 18 H Baso % (Auto) 0 Neut # (Auto) 11.3 H Lymph # (Auto) 1.5 [place] # (Auto) 1.3 H Eos # (Auto) 3.2 H Baso # (Auto) 0.1 Immature Gran # (Auto) 0.27 H Absolute Nucleated RBC 0.00 Immature Gran % 2 H Nucleated RBC % 0 Sodium 156 H 153 H 152 H Potassium 4.2 4.1 3.9 Chloride 121 H* 118 H 114 H Carbon Dioxide 21.6 25.0 24.4 Anion Gap 13 10 14 BUN 66 H 67 H 62 H Creatinine 3.1 H 2.9 H 2.7 H Estim Creat Clear Calc 28.8 L 30.8 L 33.0 L eGFR 25 L 27 L 29 L BUN/Creatinine Ratio 21 H 23 H 23 H Glucose 172 H 237 H D 185 H D Calculated Osmolality 332 H 330 H 324 H Calcium 8.6 9.1 8.9 Corrected Calcium 9.5 Phosphorus 3.1 Magnesium 1.9 Total Bilirubin 0.3 AST 28 ALT 79 H Alkaline Phosphatase 581 H Total Protein 7.0 Albumin 3.3 L Globulin 3.7 H Albumin/Globulin Ratio 0.9 L Vancomycin Trough 32.6 H* Phenytoin 31.9 H* 31.0 H* 04/17/25 04/17/25 08:05 14:43 WBC RBC Hgb Hct MCV MCH MCHC RDW Std Deviation Plt Count Neut % (Auto) Lymph % (Auto) [place] % (Auto) Eos % (Auto) Baso % (Auto) Neut # (Auto) Lymph # (Auto) [place] # (Auto) Eos # (Auto) Baso # (Auto) Immature Gran # (Auto) Absolute Nucleated RBC Immature Gran % Nucleated RBC % Sodium 149 H Potassium 4.5 D Chloride 112 H Carbon Dioxide 22.6 Anion Gap 14 BUN 55 H Creatinine 2.7 H Estim Creat Clear Calc 33.1 L eGFR 29 L BUN/Creatinine Ratio 20 Glucose 190 H Calculated Osmolality 316 H Calcium 8.8 Corrected Calcium Phosphorus Magnesium Total Bilirubin AST ALT Alkaline Phosphatase Total Protein Albumin Globulin Albumin/Globulin Ratio Vancomycin Trough Phenytoin 24.1 H* ABG Interpretation ABG results: 04/15/25 10:20 ABG pH 7.32 L ABG pCO2 49 H ABG pO2 120 H ABG HCO3 25 ABG O2 Saturation 99 H ABG Base Excess -1 Quality Measures Quality Measures VTE prophylaxis (Eliquis 5 mg twice daily) Assessment & Plan Assessment Current Active Medications: Generic Name Dose Route Start Last Admin Trade Name Freq PRN Reason Stop Dose Admin Acetaminophen 325 mg 04/13/25 21:45 Acetaminophen Lala 325 Mg/10 Ml Udc GT 05/13/25 21:44 Q4HR PRN Pain 1-3 Or Fever > 101 Apixaban 5 mg 04/14/25 09:00 04/17/25 09:57 Apixaban 2.5 Mg Tablet GT 05/05/25 08:59 5 mg BID KIT Administration Artificial Tears 1 drop 04/14/25 09:00 04/17/25 09:30 Artificial Tears 225 Drop/15 Ml Btl BOTH EYES 05/14/25 08:59 1 drop BID KIT Administration Baclofen 5 mg 04/13/25 22:00 04/17/25 14:07 Baclofen 10 Mg Tablet 05/13/25 21:59 5 mg TID KIT Administration Carbamide Peroxide 5 drop 04/13/25 22:00 04/13/25 23:38 Carbamide Peroxide Otic Lala 15 Ml Btl BOTH EARS 05/13/25 21:59 5 drops Q61D KIT Administration Collagenase 0 gm 04/14/25 21:00 04/16/25 21:46 Collagenase Oint 30 Gm Tube TOP 05/14/25 20:59 1 applicatio HS KIT Administration Fludrocortisone Acetate 0.1 mg 04/14/25 09:00 04/17/25 09:57 Fludrocortisone Acetate 0.1 Mg Tablet 05/14/25 08:59 0.1 mg DAILY KIT Administration Meropenem 1,000 mg/ Sodium 50 mls @ 100 mls/hr 04/14/25 21:00 04/17/25 09:57 Chloride IV 04/21/25 20:59 100 mls/hr Q12HR KIT Administration Dextrose 1,000 mls @ 120 mls/hr 04/16/25 18:26 04/17/25 15:04 D5w IV 05/16/25 18:25 120 mls/hr .Q8H20M KIT Administration Lansoprazole 30 mg 04/16/25 09:00 04/17/25 09:57 Lansoprazole 30 Mg Tab.Rap. GT 05/14/25 08:59 30 mg QDAY KIT Administration Levetiracetam 1,000 mg 04/13/25 22:00 04/17/25 09:57 Levetiracetam Liqd 500 Mg/5 Ml Udc GT 05/13/25 21:59 1,000 mg BID KIT Administration Lorazepam 2 mg 04/13/25 21:51 Lorazepam 2 Mg/Ml Vial IVP 04/18/25 21:50 Q30M PRN Breakthrough Seizure Midodrine 10 mg 04/13/25 22:45 04/17/25 14:07 Midodrine 5 Mg Tablet GT 05/13/25 22:44 10 mg TID KIT Administration Ondansetron HCl 4 mg 04/13/25 21:42 Ondansetron Inj 2 Mg/Ml Inj 2 Ml IVP 05/13/25 21:41 Q6H PRN NAUSEA OR VOMITING Protocol Sodium Chloride 5 ml 04/14/25 14:01 04/17/25 14:07 Sodium Chloride 0.9% Flush 10 Ml Syringe IVP 05/13/25 21:59 5 ml Q8HR KIT Administration Sodium Hypochlorite 473 ml 04/14/25 21:00 04/17/25 11:09 Sod Hypochlorite 1/4 Str 473 Ml Btl IRRIG 05/14/25 20:59 1 applicatio BID KIT Administration Plan This 39-year-old male with a past medical history of 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, status post tracheostomy, mechanical ventilation, PEG tube, suprapubic catheter, right nephrostomy tube due to obstructive uropathy, and bilateral upper extremity DVT, presented to [facility] from in-house subacute for fever will be admitted for IV antibiotics for treatment of ventilator associated pneumonia. #Phenytoin toxicity likely due to ?medication dosage pb #Hx of seizure, patient history #Anoxic brain injury post cardiac arrest in chronic vegetative state Phenytoin level elevated >40. Poison control was contacted and recommended to ask lab if a more specific measurement can be done to get a better idea of the blood levels. They also recommended to monitor for respiratory depression, coma, seizures, rash Patient history as stated. Patient is nonverbal at baseline and is a&o x0. Plan: Phenytoin at 24.1. Patient appears better than yesterday Continue with home medications Phenytoin levels trending down Per poison control, will check Phenytoin levels every 12 hourly Monitoring with EKG, BMP and phenytoin levels #Acute on chronic hypoxic resp failure on mech vent #Ventilator associated pneumonia Patient presenting with fevers noted at subacute facility, trach and PEG and high risk for aspiration secondary to being ventilated In the ED, patient has leukocytosis, elevated Pro-Chuck Chest x-ray shows bibasilar and right middle lobe pneumonia Urinalysis does show signs of infection with positive nitrites, leukocyte Esterase and +1 bacteria, suprapubic catheter Patient has a chronic history of recurring pneumonia showing that Plan: Continue meropenem and vancomycin Frequent suctioning and chest PT Sputum culture growing ESBL Proteus mirabilis sensitive to meropenem. MRSA pending. Blood cultures showing no growth. Urine cultures showed no growth. Monitor for fever spikes #ELDON on CKD Stage 3B #Hyperosmolar hypernatremia and hyperchloremia #Hx Obstructive uropathy with neurogenic bladder with Rt nephrostomy tube+ suprapubic cath -Related to phenytoin toxicity vs Medications Patient has a nephrostomy tube (placed at [facility]) as well as suprapubic catheter Patient had elevated creatinine of 3.2 which is above his baseline of around 1.6. Was Given 1L bolus in ED. Sodium elevated at 154 possibly due to hx of obstructive uropathy in setting of pneumonia vs a low volume picture. Retroperitoneal ultrasound showed bilateral hydronephrosis. Urologist said that no acute intervention required at this point. Sodium improved 149. Creatinine improved to 1.7. Patient is making adequate urine. Plan: Continue D5W at 120 cc/h Nephrology consulted, appreciate recommendations Continue D5W at 120 cc/h Increased free water flushes to 350cc every 3 hourly, will continue to monitor Goal of sodium correction 8 to 10 mEq in 24 hours Renally dose medications Avoid nephrotoxic agents #Decubitus ulcer #History Osteomyelitis History of sacral wound culture grew ESBL Proteus on 01/08/2025 sensitive to Augmentin in the past Plan: Wound culture grew Proteus, continue meropenem 1,000 mg IV Q12 hr Wound care referral #History of bilateral upper extremity DVT #History of factor V Leyden deficiency Patient with history of bilateral upper extremity DVT history of factor V Leyden deficiency, was swtiched to Eliquis 5mg GT BID on last discharge Plan: Continue Eliquis 5 mg GT bid #Anemia of chronic disease Patient's hemoglobin was 7.9 No signs of active bleeding. Plan: Continue to monitor #Adrenal insufficiency, suspected Patient takes 0.1 mg fludrocortisone at twice daily at home, suspect due to history of adrenal sufficiency although not clearly documented. Would explain patient's significant hypotension and continued soft blood pressure. Plan: Continuing home med: Fludrocortisone 0.1 mg GT daily Health management: Diet: Jevity Tube Feeds with water flushes DVT ppx: Eliquis 5 mg GT BID GI ppx: Protonix Lines: PIV, suprapubic catheter, right-sided nephrostomy tube, trach Code status: DNR Patient was seen and discussed with attending physician,Dr Myrna Lira MD PGY-3 Attending Provider Attestation/Addendum I, Nuris Norris, , attest that I was physically present for the purdy portions of the service and evaluated the patient with the resident and I reviewed and discussed the case with the resident and agree with the resident's findings and plans of care as documented above Patient seen and evaluated this AM. Patient continues to have copious secretions from trach. FiO2 decreased to 60%today. Patient's grandma at bedside states that the patient has been more lethargic for the past 2 weeks. At baseline, he will interact and open his eyes spontaneously. Patient appeared to smile when he saw his grandmother. Hypernatremia has been improving with D5W and free water flushes. WIll continue with current management and sodium checks. Will order chest pT. Renal function slowly improving
[2025-04-17] MEDS: COLLAGENASE OINT 30 GM TUBE TOP (21:40)
--- NOTE | 2025-04-17 23:05 | PC.NURSE ---
ASUNCION FROM POISON CONTROL CALLED FOR UPDATE. PHENYTOIN LEVEL AT 24.1. RECC CONTINUE CURRENT MANAGEMENT AND CONTINUE TO HOLD PHENYTOIN FOR NOW
[2025-04-18] VITALS (13 sets, daily range): BP systolic 97–118; BP diastolic 65–88; PULSE 102–121; RESP 15–27; TEMP 35.6–36.4; O2SAT 95–100; BMI 27.0
[2025-04-18] MEDS: DEXTROSE 5%-WATER 1,000 ML 120 ML IV (00:27)
[2025-04-18 03:08] LABS: Basophils # (Auto) 0.0 Thou/mm3 (0.0-0.2); Basophils % (Auto) 0 % (0-2.5); Eosinophils # (Auto) 2.8 Thou/mm3 (0.0-0.5); Eosinophils % (Auto) 18 % (0-10); Hematocrit 24.7 % (41.0-53.0); Immature Granulocytes Auto 0.27 Thou/mm3 (0.00-0.00); Lymphocytes # (Auto) 1.8 Thou/mm3 (1.0-4.8); Lymphocytes % (Auto) 12 % (10-50); Mean Corpuscular HGB Conc 31.2 g/dl (31.0-37.0); Mean Corpuscular Hemoglobin 28.4 pg (25.0-35.0); Mean Corpuscular Volume 91 fL (80-100); Monocytes # (Auto) 0.9 Thou/mm3 (0.0-0.8); Monocytes % (Auto) 6 % (0-12); Neutrophils # (Auto) 9.4 Thou/mm3 (1.8-7.7); Neutrophils % (Auto) 62 % (37-80); Nucleated Red Blood Cell # 0.00 Thou/mm3 (0.00-0.00); Nucleated Red Blood Cell % 0 /100 WBC (0); Platelet Count 283 Thou/mm3 (140-440); RDW Standard Deviation 51.6 fL (35.1-43.9); Red Blood Count 2.71 Miln/mm3 (4.50-5.90); White Blood Count 15.2 Thou/mm3 (3.8-10.6)
[2025-04-18 03:32] LABS: Alanine Aminotransferase 57 U/L (10-49); Albumin, Serum 3.1 gm/dL (3.5-5.0); Albumin/Globulin Ratio 0.9 (1.2-2.2); Alkaline Phosphatase 520 U/L (46-116); Anion Gap 12 (7-16); Aspartate Amino Transferase 26 U/L (0-34); BUN/Creatinine Ratio 22 Ratio (12-20); Bilirubin,Total 0.3 mg/dL (0.3-1.2); Blood Urea Nitrogen 56 mg/dL (9-23); Calcium 8.5 mg/dL (8.3-10.6); Calcium (Corrected) 9.2 mg/dL (8.5-10.1); Carbon Dioxide 24.7 mMol/L (20.0-31.0); Chloride 106 mMol/L (98-107); Creatinine (Component) 2.5 mg/dL (0.6-1.3); Estimated Creatinine Clearance 35.7 mL/min (>60); Globulin 3.3 gm/dL (2.3-3.5); Glucose 161 mg/dL (74-106); Magnesium 1.8 mg/dL (1.6-2.6); Osmolality,Calculated 303 (275-295); Phenytoin (Dilantin) 20.5 mcg/mL; Phosphorous 3.5 mg/dL (2.4-5.1); Potassium 3.7 mMol/L (3.4-5.1); Sodium 143 mMol/L (136-145); Total Protein 6.4 gm/dL (5.7-8.2); Vancomycin,Random 20.7 mcg/mL; eGFR 32 See Note
[2025-04-18 03:39] LABS: Hemoglobin 7.7 g/dL (13.5-16.0)
[2025-04-18] MEDS: MIDODRINE 5 MG TABLET 10 MG GT ×3 (05:56→21:48)
[2025-04-18] MEDS: BACLOFEN 10 MG TABLET 5 MG GT ×3 (05:56→21:48)
[2025-04-18] MEDS: APIXABAN 2.5 MG TABLET 5 MG GT ×2 (09:11→21:48)
[2025-04-18] MEDS: levETIRAcetam LIQD 500 MG/5 ML UDC 1000 MG GT ×2 (09:11→21:48)
[2025-04-18] MEDS: FLUDROCORTISONE ACETATE 0.1 MG TABLET GT (09:12)
[2025-04-18] MEDS: LANSOPRAZOLE 30 MG TAB.RAP.DR GT (09:12)
[2025-04-18] MEDS: MEROPENEM INJ 1,000 MG in SODIUM CHLORIDE 0.9% (Popper) 50 ML 100 MG IV ×2 (09:16→21:48)
[2025-04-18] MEDS: DEXTROSE 5%-WATER 1,000 ML 60 ML IV (09:16)
[2025-04-18] MEDS: Artificial Tears 225 DROP/15 ML BTL BOTH EYES ×2 (09:17→21:50)
[2025-04-18] MEDS: ALBUTEROL/IPRATROPIUM (Duoneb) RT SOL 3 ML NEBU INH (10:40)
[2025-04-18] MEDS: SOD HYPOCHLORITE 1/4 STR 473 ML BTL IRRIG ×2 (13:30→21:49)
[2025-04-18] MEDS: ACETAMINOPHEN SOL 325 MG/10 ML UDC GT (13:31)
[2025-04-18 15:09] LABS: Phenytoin (Dilantin) 16.8 mcg/mL
--- NOTE | 2025-04-18 15:16 | PD.RESPRO ---
Documentation for date of: 04/18/25 Subjective Subjective Interval history: No overnight events. Patient seen examined at bedside, resting comfortably. Patient opens eyes to uncomfortable stimuli, otherwise poorly responsive. Phenytoin decreasing, potentially restarting phenytoin at appropriate dosage tomorrow. Hyponatremia resolved, reduced free water flushes and IVF. Added DuoNebs and Robitussin. Exam Vital Signs Temp Pulse Resp BP Pulse Ox O2 Del Method O2 Flow Rate 96.1 F L 109 H 17 110/82 100 Mechanical Ventilation 4 04/18/25 12:00 04/18/25 13:30 04/18/25 12:00 04/18/25 13:30 04/18/25 12:00 04/18/25 12:00 04/18/25 12:00 FiO2 60 04/18/25 12:00 Narrative Exam GENERAL APPEARANCE: [facility] is [facility] HEENT: [place], AT. dry mucus membrane. EOMI, clear conjunctiva, oropharynx clear. NECK: Supple without lymphadenopathy. No stiffness or restricted ROM. HEART: sinus tacycardia with regular rhythm, normal S1/S2, no m/r/g LUNGS: coarse crackles with copious thick secretions ABDOMEN: Soft, nontender, nondistended with good bowel sounds heard.PEG tube EXTREMITIES: Without cyanosis, clubbing or edema. NEUROLOGICAL: Patient is trach [facility] : Rt nephrotosmy tube in place Skin: Sacral wounds Grade III. No discoloration/rashes/edema/amputations. +Pedal pulses present B/L. Objective Labs 04/19/25 02:30 04/19/25 02:30 Labs: Laboratory Results - last 24 hr 04/18/25 04/18/25 02:46 14:43 WBC 15.2 H RBC 2.71 L Hgb 7.7 L Hct 24.7 L MCV 91 MCH 28.4 MCHC 31.2 RDW Std Deviation 51.6 H Plt Count 283 D Neut % (Auto) 62 Lymph % (Auto) 12 [place] % (Auto) 6 Eos % (Auto) 18 H Baso % (Auto) 0 Neut # (Auto) 9.4 H Lymph # (Auto) 1.8 [place] # (Auto) 0.9 H Eos # (Auto) 2.8 H Baso # (Auto) 0.0 Immature Gran # (Auto) 0.27 H Absolute Nucleated RBC 0.00 Immature Gran % 2 H Nucleated RBC % 0 Sodium 143 Potassium 3.7 D Chloride 106 Carbon Dioxide 24.7 Anion Gap 12 BUN 56 H Creatinine 2.5 H Estim Creat Clear Calc 35.7 L eGFR 32 L BUN/Creatinine Ratio 22 H Glucose 161 H Calculated Osmolality 303 H Calcium 8.5 Corrected Calcium 9.2 Phosphorus 3.5 Magnesium 1.8 Total Bilirubin 0.3 AST 26 ALT 57 H Alkaline Phosphatase 520 H D Total Protein 6.4 Albumin 3.1 L Globulin 3.3 Albumin/Globulin Ratio 0.9 L Random Vancomycin 20.7 Phenytoin 20.5 H* 16.8 ABG Interpretation ABG results: 04/15/25 10:20 ABG pH 7.32 L ABG pCO2 49 H ABG pO2 120 H ABG HCO3 25 ABG O2 Saturation 99 H ABG Base Excess -1 Quality Measures Quality Measures VTE prophylaxis (Eliquis 5 mg twice daily) Assessment & Plan Assessment Current Active Medications: Generic Name Dose Route Start Last Admin Trade Name Freq PRN Reason Stop Dose Admin Acetaminophen 325 mg 04/13/25 21:45 04/18/25 13:31 Acetaminophen Lala 325 Mg/10 Ml Udc GT 05/13/25 21:44 325 mg Q4HR PRN Administration Pain 1-3 Or Fever > 101 Albuterol/Ipratropium 3 ml 04/18/25 09:53 04/18/25 10:40 Albuterol/Ipratropium (Duoneb) Rt Lala 3 Ml Nebu INH 05/18/25 09:52 3 ml Q2HR PRN Administration SHORTNESS OF BREATH OR WHEEZE Apixaban 5 mg 04/14/25 09:00 04/18/25 09:11 Apixaban 2.5 Mg Tablet GT 05/05/25 08:59 5 mg BID KIT Administration Artificial Tears 1 drop 04/14/25 09:00 04/18/25 09:17 Artificial Tears 225 Drop/15 Ml Btl BOTH EYES 05/14/25 08:59 1 drop BID KIT Administration Baclofen 5 mg 04/13/25 22:00 04/18/25 13:31 Baclofen 10 Mg Tablet GT 05/13/25 21:59 5 mg TID KIT Administration Carbamide Peroxide 5 drop 04/13/25 22:00 04/13/25 23:38 Carbamide Peroxide Otic Lala 15 Ml Btl BOTH EARS 05/13/25 21:59 5 drops Q61D KIT Administration Collagenase 0 gm 04/14/25 21:00 04/17/25 21:40 Collagenase Oint 30 Gm Tube TOP 05/14/25 20:59 1 applicatio HS KIT Administration Fludrocortisone Acetate 0.1 mg 04/14/25 09:00 04/18/25 09:12 Fludrocortisone Acetate 0.1 Mg Tablet 05/14/25 08:59 0.1 mg DAILY KIT Administration Guaifenesin 200 mg 04/18/25 10:32 Guaifenesin Syrup 200 Mg/10 Ml Udc 05/18/25 10:31 QID PRN thickened sputum/COUGH Protocol Meropenem 1,000 mg/ Sodium 50 mls @ 100 mls/hr 04/14/25 21:00 04/18/25 09:16 Chloride IV 04/21/25 20:59 100 mls/hr Q12HR KIT Administration Dextrose 1,000 mls @ 60 mls/hr 04/18/25 08:16 04/18/25 09:16 D5w IV 05/18/25 08:15 60 mls/hr .[id number] KIT Administration Lansoprazole 30 mg 04/16/25 09:00 04/18/25 09:12 Lansoprazole 30 Mg Tab.Rap. 05/14/25 08:59 30 mg QDAY KIT Administration Levetiracetam 1,000 mg 04/13/25 22:00 04/18/25 09:11 [facility] 05/[facility] 21:59 1,000 mg BID KIT Administration Lorazepam 2 mg 04/13/25 21:51 Lorazepam 2 Mg/Ml Vial IVP 04/18/25 21:50 Q30M PRN Breakthrough Seizure Midodrine 10 mg 04/13/25 22:45 04/18/25 13:30 Midodrine 5 Mg Tablet 05/13/25 22:44 10 mg TID KIT Administration Ondansetron HCl 4 mg 04/13/25 21:42 Ondansetron Inj 2 Mg/Ml Inj 2 Ml IVP 05/13/25 21:41 Q6H PRN NAUSEA OR VOMITING Protocol Sodium Chloride 5 ml 04/14/25 14:01 04/18/25 13:33 Sodium Chloride 0.9% Flush 10 Ml Syringe IVP 05/13/25 21:59 5 ml Q8HR KIT Administration Sodium Hypochlorite 473 ml 04/14/25 21:00 04/18/25 13:30 Sod Hypochlorite 1/4 Str 473 Ml Btl IRRIG 05/14/25 20:59 1 applicatio BID KIT Administration Plan This 39-year-old male with a past medical history of 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, status post tracheostomy, mechanical ventilation, PEG tube, suprapubic catheter, right nephrostomy tube due to obstructive uropathy, and bilateral upper extremity DVT, presented to [facility] from in-house subacute for fever will be admitted for IV antibiotics for treatment of ventilator associated pneumonia. #Phenytoin toxicity likely due to ?medication dosage pb #Hx of seizure, patient history #Anoxic brain injury post cardiac arrest in chronic vegetative state Phenytoin level elevated >40. Poison control was contacted and recommended to ask lab if a more specific measurement can be done to get a better idea of the blood levels. They also recommended to monitor for respiratory depression, coma, seizures, rash Patient history as stated. Patient is nonverbal at baseline and is a&o x0. Plan: Phenytoin at 24.1. Patient appears better than yesterday Continue with home medications Phenytoin levels trending down Per poison control, will check Phenytoin levels every 12 hourly Monitoring with EKG, BMP and phenytoin levels #Acute on chronic hypoxic resp failure on mech vent #Ventilator associated pneumonia Patient presenting with fevers noted at subacute facility, trach and PEG and high risk for aspiration secondary to being ventilated In the ED, patient has leukocytosis, elevated Pro-Chuck Chest x-ray shows bibasilar and right middle lobe pneumonia Urinalysis does show signs of infection with positive nitrites, leukocyte Esterase and +1 bacteria, suprapubic catheter Patient has a chronic history of recurring pneumonia showing that Plan: Continue meropenem Frequent suctioning and chest PT Sputum culture growing ESBL Proteus mirabilis sensitive to meropenem. MRSA pending. Blood cultures showing no growth. Urine cultures showed no growth. Monitor for fever spikes Robitussin, DuoNebs as needed #ELDON on CKD Stage 3B #Hyperosmolar hypernatremia and hyperchloremia #Hx Obstructive uropathy with neurogenic bladder with Rt nephrostomy tube+ suprapubic cath -Related to phenytoin toxicity vs Medications Patient has a nephrostomy tube (placed at [facility]) as well as suprapubic catheter Patient had elevated creatinine of 3.2 which is above his baseline of around 1.6. Was Given 1L bolus in ED. Sodium elevated at 154 possibly due to hx of obstructive uropathy in setting of pneumonia vs a low volume picture. Retroperitoneal ultrasound showed bilateral hydronephrosis. Urologist said that no acute intervention required at this point. Sodium improved 149. Creatinine improved to 1.7. Patient is making adequate urine. Sodium improved to 143, reduced IVF and free water flushes. Plan: Continue D5W at 60 cc/h Nephrology consulted, appreciate recommendations Increased free water flushes to 300cc every 4 hours, will continue to monitor Goal of sodium correction 8 to 10 mEq in 24 hours Renally dose medications Avoid nephrotoxic agents #Decubitus ulcer #History Osteomyelitis History of sacral wound culture grew ESBL Proteus on 01/08/2025 sensitive to Augmentin in the past Plan: Wound culture grew Proteus, continue meropenem 1,000 mg IV Q12 hr Wound care referral #History of bilateral upper extremity DVT #History of factor V Leyden deficiency Patient with history of bilateral upper extremity DVT history of factor V Leyden deficiency, was swtiched to Eliquis 5mg GT BID on last discharge Plan: Continue Eliquis 5 mg GT bid #Anemia of chronic disease Patient's hemoglobin was 7.9 No signs of active bleeding. Plan: Continue to monitor #Adrenal insufficiency, suspected Patient takes 0.1 mg fludrocortisone at twice daily at home, suspect due to history of adrenal sufficiency although not clearly documented. Would explain patient's significant hypotension and continued soft blood pressure. Plan: Continuing home med: Fludrocortisone 0.1 mg GT daily Health management: Diet: Jevity Tube Feeds with water flushes DVT ppx: Eliquis 5 mg GT BID GI ppx: Protonix Lines: PIV, suprapubic catheter, right-sided nephrostomy tube, trach Code status: DNR Patient was seen and discussed with attending physician,Dr Myrna Crespo MD PGY-2 Attending Provider Attestation/Addendum I, Nuris Norris DO, attest that I was physically present for the purdy portions of the service and evaluated the patient with the resident and I reviewed and discussed the case with the resident and agree with the resident's findings and plans of care as documented above Patient was seen and eval this a.m. Patient remains at baseline. Phenytoin levels downtrending. Patient has been tachycardic likely due to increased secretions. Will place patient on guaifenesin. Continue with frequent suctioning. Continue with IV meropenem which was complete on 04/20. Hypernatremia has resolved. Will discontinue D5W. Continue follow-up phenytoin levels.
[2025-04-18] MEDS: COLLAGENASE OINT 30 GM TUBE TOP (21:49)
[2025-04-19] VITALS (16 sets, daily range): BP systolic 91–131; BP diastolic 69–94; PULSE 109–134; RESP 22–41; TEMP 36.3–37.3; O2SAT 95–100; BMI 27.0
[2025-04-19] MEDS: DEXTROSE 5%-WATER 1,000 ML 60 ML IV (02:38)
[2025-04-19 02:43] LABS: Basophils # (Auto) 0.1 Thou/mm3 (0.0-0.2); Eosinophils % (Auto) 20 % (0-10); Monocytes % (Auto) 6 % (0-12); Nucleated Red Blood Cell # 0.00 Thou/mm3 (0.00-0.00); Nucleated Red Blood Cell % 0 /100 WBC (0)
[2025-04-19 02:51] LABS: Basophils % (Auto) 1 % (0-2.5); Eosinophils # (Auto) 3.0 Thou/mm3 (0.0-0.5); Hematocrit 26.6 % (41.0-53.0); Immature Granulocytes Auto 0.31 Thou/mm3 (0.00-0.00); Lymphocytes # (Auto) 1.7 Thou/mm3 (1.0-4.8); Lymphocytes % (Auto) 12 % (10-50); Mean Corpuscular HGB Conc 32.3 g/dl (31.0-37.0); Mean Corpuscular Hemoglobin 28.3 pg (25.0-35.0); Mean Corpuscular Volume 88 fL (80-100); Monocytes # (Auto) 0.9 Thou/mm3 (0.0-0.8); Neutrophils # (Auto) 9.0 Thou/mm3 (1.8-7.7); Neutrophils % (Auto) 60 % (37-80); Platelet Count 308 Thou/mm3 (140-440); RDW Standard Deviation 49.1 fL (35.1-43.9); Red Blood Count 3.04 Miln/mm3 (4.50-5.90); White Blood Count 14.9 Thou/mm3 (3.8-10.6)
[2025-04-19 02:52] LABS: Hemoglobin 8.6 g/dL (13.5-16.0)
[2025-04-19 02:58] LABS: Alanine Aminotransferase 58 U/L (10-49); Albumin, Serum 3.2 gm/dL (3.5-5.0); Albumin/Globulin Ratio 0.9 (1.2-2.2); Alkaline Phosphatase 524 U/L (46-116); Anion Gap 11 (7-16); Aspartate Amino Transferase 31 U/L (0-34); BUN/Creatinine Ratio 23 Ratio (12-20); Bilirubin,Total 0.2 mg/dL (0.3-1.2); Blood Urea Nitrogen 55 mg/dL (9-23); Calcium 8.5 mg/dL (8.3-10.6); Calcium (Corrected) 9.1 mg/dL (8.5-10.1); Carbon Dioxide 25.8 mMol/L (20.0-31.0); Chloride 104 mMol/L (98-107); Creatinine (Component) 2.4 mg/dL (0.6-1.3); Estimated Creatinine Clearance 36.8 mL/min (>60); Globulin 3.4 gm/dL (2.3-3.5); Glucose 162 mg/dL (74-106); Magnesium 1.9 mg/dL (1.6-2.6); Osmolality,Calculated 300 (275-295); Phenytoin (Dilantin) 13.5 mcg/mL; Phosphorous 4.3 mg/dL (2.4-5.1); Potassium 4.0 mMol/L (3.4-5.1); Sodium 141 mMol/L (136-145); Total Protein 6.6 gm/dL (5.7-8.2); eGFR 34 See Note
--- NOTE | 2025-04-19 06:09 | XR_ITS ---
Examination: Abdomen AP single view Technique: AP portable supine abdomen, single view Exam date and time: April 19, 2025, 0632 hours INDICATIONS: Distended abdomen FINDINGS: Large amounts of stool throughout the entire colon Gastrostomy tube overlies the air distended stomach Right drainage tube consistent with nephrostomy tube No free air IMPRESSION: Limited study, no diagnostic view of the pelvis Large amounts of stool throughout the colon
[2025-04-19] MEDS: MORPHINE SULF INJ 10 MG/ML VIAL 2 MG IVP (06:11)
[2025-04-19] MEDS: BACLOFEN 10 MG TABLET 5 MG GT ×3 (06:12→21:34)
[2025-04-19] MEDS: MIDODRINE 5 MG TABLET 10 MG GT ×3 (06:12→21:34)
--- NOTE | 2025-04-19 06:19 | PD.RESEVENT ---
Documentation for date of: 04/19/25 Event Note Event Note: 04/19/2025: Rapid response called sometime around 6 AM for patient in room 276, 39-year-old male with tachypnea with a respiratory rate between 40-50. Patient seen and assessed in hospital bed as evidence of abdominal distention and tenderness on examination, patient has high peak pressures on ventilator, tachycardia but saturating well on the ventilator. Per nursing, patient was recently moved and cleaned. Ordered KUB and ABG; moreover, gave 2 mg IV morphine for respiratory distress and pain. Will continue monitor for any acute changes Kit Isabel, DO PGY-2 Internal Medicine - GME
[2025-04-19 07:24] LABS: Base Excess 1 (-3-3); HCO3 26 mEq/L (20-26); Inspired Oxygen, FIO2 50 %; O2 Saturation 96 % (91-98); PCO2 39 mmHg (32.0-48.0); PO2 71 mmHg (83-108); pH, Arterial 7.42 (7.35-7.45)
[2025-04-19 07:28] LABS: Allen Test Performed/OK; Puncture Site Left Brachial
[2025-04-19] MEDS: SOD HYPOCHLORITE 1/4 STR 473 ML BTL IRRIG ×2 (08:37→21:39)
[2025-04-19] MEDS: MEROPENEM INJ 1,000 MG in SODIUM CHLORIDE 0.9% (Popper) 50 ML 100 MG IV ×2 (08:38→21:34)
[2025-04-19] MEDS: levETIRAcetam LIQD 500 MG/5 ML UDC 1000 MG GT ×2 (08:38→21:34)
[2025-04-19] MEDS: APIXABAN 2.5 MG TABLET 5 MG GT ×2 (08:39→21:33)
[2025-04-19] MEDS: FLUDROCORTISONE ACETATE 0.1 MG TABLET GT (08:39)
[2025-04-19] MEDS: LANSOPRAZOLE 30 MG TAB.RAP.DR GT (08:39)
--- NOTE | 2025-04-19 13:58 | XR_ITS ---
Examination: AP chest single view Technique one AP portable semiupright chest single view Date and time: April 19, 2025 1439 hours Comparison April 15, 2025 INDICATIONS: Shortness of breath, chronic FINDINGS: Subsegmental atelectasis right base Pneumonia and atelectasis left base Tracheostomy tube tip 5.8 cm above [place]udley Right internal jugular central line tip satisfactory position IMPRESSION: Atelectasis and/or pneumonia left base
[2025-04-19] MEDS: MORPHINE SULF INJ 10 MG/ML VIAL IVP (14:06)
--- NOTE | 2025-04-19 14:09 | PD.RESPRO ---
Documentation for date of: 04/19/25 Subjective Subjective Interval history: Overnight events: Rapid response around 0600 for respiratory rate 45-50. Patient was seen and examined at bedside. AM vitals and labs reviewed. Patient remains unresponsive on mechanical ventilation w/ trach tube in place. Patient is able to open eyes to auditory stimulation, but quickly closes eyes. Patient does not appear to understand questions being asked. Patient could not follow any commands. Renal lab values continue to slowly improve. BUN 55, creatinine 2.4, and GFR 34. Ins/outs 2830/4700. Review of systems otherwise negative except for what is mentioned above. Exam Vital Signs Temp Pulse Resp BP Pulse Ox O2 Del Method O2 Flow Rate 97.8 F 132 H 26 H 131/78 H 96 Mechanical Ventilation 4 04/19/25 12:00 04/19/25 13:37 04/19/25 12:00 04/19/25 13:37 04/19/25 12:00 04/19/25 12:00 04/19/25 12:00 FiO2 60 04/19/25 12:00 Narrative Exam Physical Exam: General: Sleepy, no acute distress. Skin: Warm, dry, intact. Head: Normocephalic, atraumatic. Cardiovascular: Regular rate and rhythm, no murmur, +S1/S2. Respiratory: Mechanical ventilation sounds on auscultation, respirations unlabored, crackles, no wheezing. Gastrointestinal: Soft, nontender, non-distended. Extremities: No edema, no cyanosis, no clubbing. 2+ radial pulse bilaterally, 2+ pedal pulse bilaterally. Objective Labs 04/24/25 05:51 04/24/25 05:51 Labs: Laboratory Results - last 24 hr 04/18/25 04/19/25 04/19/25 14:43 02:30 07:08 WBC 14.9 H RBC 3.04 L Hgb 8.6 L Hct 26.6 L MCV 88 MCH 28.3 MCHC 32.3 RDW Std Deviation 49.1 H Plt Count 308 Neut % (Auto) 60 Lymph % (Auto) 12 [place] % (Auto) 6 Eos % (Auto) 20 H Baso % (Auto) 1 Neut # (Auto) 9.0 H Lymph # (Auto) 1.7 [place] # (Auto) 0.9 H Eos # (Auto) 3.0 H Baso # (Auto) 0.1 Immature Gran # (Auto) 0.31 H Absolute Nucleated RBC 0.00 Immature Gran % 2 H Nucleated RBC % 0 Puncture Site Left Brachial ABG pH 7.42 ABG pCO2 39 ABG pO2 71 L ABG HCO3 26 ABG O2 Saturation 96 ABG Base Excess 1 FiO2 50 Sodium 141 Potassium 4.0 Chloride 104 Carbon Dioxide 25.8 Anion Gap 11 BUN 55 H Creatinine 2.4 H Estim Creat Clear Calc 36.8 L eGFR 34 L BUN/Creatinine Ratio 23 H Glucose 162 H Calculated Osmolality 300 H Calcium 8.5 Corrected Calcium 9.1 Phosphorus 4.3 Magnesium 1.9 Total Bilirubin 0.2 L AST 31 ALT 58 H Alkaline Phosphatase 524 H Total Protein 6.6 Albumin 3.2 L Globulin 3.4 Albumin/Globulin Ratio 0.9 L Phenytoin 16.8 13.5 ABG Interpretation ABG results: 04/15/25 04/19/25 10:20 07:08 ABG pH 7.32 L 7.42 ABG pCO2 49 H 39 ABG pO2 120 H 71 L ABG HCO3 25 26 ABG O2 Saturation 99 H 96 ABG Base Excess -1 1 Quality Measures Quality Measures VTE prophylaxis (Eliquis 5 mg twice daily) Assessment & Plan Assessment Current Active Medications: Generic Name Dose Route Start Last Admin Trade Name Freq PRN Reason Stop Dose Admin Acetaminophen 325 mg 04/13/25 21:45 04/18/25 13:31 Acetaminophen Lala 325 Mg/10 Ml Udc GT 05/13/25 21:44 325 mg Q4HR PRN Administration Pain 1-3 Or Fever > 101 Albuterol/Ipratropium 3 ml 04/18/25 09:53 04/18/25 10:40 Albuterol/Ipratropium (Duoneb) Rt Lala 3 Ml Nebu INH 05/18/25 09:52 3 ml Q2HR PRN Administration SHORTNESS OF BREATH OR WHEEZE Apixaban 5 mg 04/14/25 09:00 04/19/25 08:39 Apixaban 2.5 Mg Tablet GT 05/05/25 08:59 5 mg BID KIT Administration Artificial Tears 1 drop 04/14/25 09:00 04/19/25 08:39 Artificial Tears 225 Drop/15 Ml Btl BOTH EYES 05/14/25 08:59 Not Given BID KIT Baclofen 5 mg 04/13/25 22:00 04/19/25 13:37 Baclofen 10 Mg Tablet GT 05/13/25 21:59 5 mg TID KIT Administration Bisacodyl 10 mg 04/19/25 08:11 Bisacodyl 10 Mg Supp [place] 05/19/25 08:10 PRN PRN No BM Per Bowel Management Protocol Protocol Carbamide Peroxide 5 drop 04/13/25 22:00 04/13/25 23:38 Carbamide Peroxide Otic Lala 15 Ml Btl BOTH EARS 05/13/25 21:59 5 drops Q61D KIT Administration Collagenase 0 gm 04/14/25 21:00 04/18/25 21:49 Collagenase Oint 30 Gm Tube TOP 05/14/25 20:59 1 applicatio HS KIT Administration Fludrocortisone Acetate 0.1 mg 04/14/25 09:00 04/19/25 08:39 Fludrocortisone Acetate 0.1 Mg Tablet GT 05/14/25 08:59 0.1 mg DAILY KIT Administration Guaifenesin 200 mg 04/18/25 10:32 Guaifenesin Syrup 200 Mg/10 Ml Udc 05/18/25 10:31 QID PRN thickened sputum/COUGH Protocol Meropenem 1,000 mg/ Sodium 50 mls @ 100 mls/hr 04/14/25 21:00 04/19/25 08:38 Chloride IV 04/21/25 20:59 100 mls/hr Q12HR KIT Administration Dextrose 1,000 mls @ 60 mls/hr 04/18/25 08:16 04/19/25 02:38 D5w IV 05/18/25 08:15 60 mls/hr .[id number] KIT Administration Lansoprazole 30 mg 04/16/25 09:00 04/19/25 08:39 Lansoprazole 30 Mg Tab.Rap. GT 05/14/25 08:59 30 mg QDAY KIT Administration Levetiracetam 1,000 mg 04/13/25 22:00 04/19/25 08:38 Levetiracetam Liqd 500 Mg/5 Ml Udc 05/13/25 21:59 1,000 mg BID KIT Administration Midodrine 10 mg 04/13/25 22:45 04/19/25 13:37 Midodrine 5 Mg Tablet GT 05/13/25 22:44 10 mg TID KIT Administration Ondansetron HCl 4 mg 04/13/25 21:42 Ondansetron Inj 2 Mg/Ml Inj 2 Ml IVP 05/13/25 21:41 Q6H PRN NAUSEA OR VOMITING Protocol Polyethylene Glycol 17 gm 04/19/25 10:30 04/19/25 13:36 Polyethylene Glycol 17 Gm Packet GT 05/19/25 10:29 Not Given QDAY KIT Sodium Chloride 5 ml 04/14/25 14:01 04/19/25 14:07 Sodium Chloride 0.9% Flush 10 Ml Syringe IVP 05/13/25 21:59 5 ml Q8HR KIT Administration Sodium Hypochlorite 473 ml 04/14/25 21:00 04/19/25 08:37 Sod Hypochlorite 1/4 Str 473 Ml Btl IRRIG 05/14/25 20:59 1 applicatio BID KIT Administration Sodium Phosphate 133 ml 04/19/25 08:11 Sodium Phos,[place]-Dibasic 133 Ml (Fleet) Enema Btl RC PRN PRN No BM Per Bowel Management Protocol Plan Mr. Smith is a 39 year old male with a relevant medical history of anoxic brain injury, s/p tracheotomy, mechanical ventilation, and right nephrostomy tube for obstructive uropathy, who presented with a fever. The patient was admitted for use of IV antibiotics in suspicion of ventilator associated pneumonia. Nephrology was consulted due to concerns of ELDON on CKD IV. #ELDON on CKD IIIB #Obstructive uropathy #Hypernatremia (resolved) Patient was admitted with BUN of 102, Cr 3.4, and eGFR of 22. Given the patient's prior history of obstructive uropathy, ELDON may be due to ATN 2/2 drops in BP as recorded in EMR prior to admission to [facility]. - Renal function lab values improving over time. - Renally adjust medications. - IV fluid resuscitation as tolerated. - Nephrology will continue to follow Patient was discussed with the Nephrology attending, Dr. Duran. Thank you for allowing us to participate in the care of this patient. Salazar Smalls, PGY-1 Attending Provider Attestation/Addendum Agree with assessment and plan and findings by resident. Kevin Duran MD
[2025-04-19] MEDS: LORazepam 2 MG/ML VIAL IVP (15:15)
--- NOTE | 2025-04-19 15:19 | PC.SS ---
SS follow up note; Possible Discharge back to Subacute tomorrow. Patient is on IV ABX.
--- NOTE | 2025-04-19 15:43 | ESPR_ITS ---
Documentation for date of: 04/19/25 Subjective Subjective Interval history: Rapid response overnight for tachypnea, patient appeared to have abdominal pain with distention, given morphine and KUB ordered. Patient seen and examined at bedside. More alert than previous, able to withdraw from noxious stimuli, eyes open spontaneously. Patient had prolonged period of distress with increased peak pressures and tachypnea. Chest x-ray unremarkable. Previous KUB shows belly full of stool. As needed enemas and scheduled MiraLAX ordered, ordered [facility] which patient takes outpatient. 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 dry mucus membrane. EOMI, clear conjunctiva, oropharynx clear. NECK: Supple without lymphadenopathy. No stiffness or restricted ROM. HEART: sinus tacycardia with regular rhythm, normal S1/S2, no m/r/g LUNGS: coarse rhonchi with copious thick secretions ABDOMEN: Soft, nontender, minimal distention with good bowel sounds heard. PEG tube EXTREMITIES: Without cyanosis, clubbing or edema. 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 No discoloration/rashes/edema/amputations. +Pedal pulses present B/L. Objective Labs 04/20/25 04:56 04/20/25 04:56 Labs: Laboratory Results - last 24 hr 04/19/25 04/19/25 02:30 07:08 WBC 14.9 H RBC 3.04 L Hgb 8.6 L Hct 26.6 L MCV 88 MCH 28.3 MCHC 32.3 RDW Std Deviation 49.1 H Plt Count 308 Neut % (Auto) 60 Lymph % (Auto) 12 [place] % (Auto) 6 Eos % (Auto) 20 H Baso % (Auto) 1 Neut # (Auto) 9.0 H Lymph # (Auto) 1.7 [place] # (Auto) 0.9 H Eos # (Auto) 3.0 H Baso # (Auto) 0.1 Immature Gran # (Auto) 0.31 H Absolute Nucleated RBC 0.00 Immature Gran % 2 H Nucleated RBC % 0 Puncture Site Left Brachial ABG pH 7.42 ABG pCO2 39 ABG pO2 71 L ABG HCO3 26 ABG O2 Saturation 96 ABG Base Excess 1 FiO2 50 Sodium 141 Potassium 4.0 Chloride 104 Carbon Dioxide 25.8 Anion Gap 11 BUN 55 H Creatinine 2.4 H Estim Creat Clear Calc 36.8 L eGFR 34 L BUN/Creatinine Ratio 23 H Glucose 162 H Calculated Osmolality 300 H Calcium 8.5 Corrected Calcium 9.1 Phosphorus 4.3 Magnesium 1.9 Total Bilirubin 0.2 L AST 31 ALT 58 H Alkaline Phosphatase 524 H Total Protein 6.6 Albumin 3.2 L Globulin 3.4 Albumin/Globulin Ratio 0.9 L Phenytoin 13.5 ABG Interpretation ABG results: 04/15/25 04/19/25 10:20 07:08 ABG pH 7.32 L 7.42 ABG pCO2 49 H 39 ABG pO2 120 H 71 L ABG HCO3 25 26 ABG O2 Saturation 99 H 96 ABG Base Excess -1 1 Quality Measures Quality Measures VTE prophylaxis (Eliquis 5 mg twice daily) Assessment & Plan Assessment Current Active Medications: Generic Name Dose Route Start Last Admin Trade Name Freq PRN Reason Stop Dose Admin Acetaminophen 325 mg 04/13/25 21:45 04/18/25 13:31 Acetaminophen Lala 325 Mg/10 Ml Udc GT 05/13/25 21:44 325 mg Q4HR PRN Administration Pain 1-3 Or Fever > 101 Albuterol/Ipratropium 3 ml 04/18/25 09:53 04/18/25 10:40 Albuterol/Ipratropium (Duoneb) Rt Lala 3 Ml Nebu INH 05/18/25 09:52 3 ml Q2HR PRN Administration SHORTNESS OF BREATH OR WHEEZE Apixaban 5 mg 04/14/25 09:00 04/19/25 08:39 Apixaban 2.5 Mg Tablet GT 05/05/25 08:59 5 mg BID KIT Administration Artificial Tears 1 drop 04/14/25 09:00 04/19/25 08:39 Artificial Tears 225 Drop/15 Ml Btl BOTH EYES 05/14/25 08:59 Not Given BID KIT Baclofen 5 mg 04/13/25 22:00 04/19/25 13:37 Baclofen 10 Mg Tablet GT 05/13/25 21:59 5 mg TID KIT Administration Bisacodyl 10 mg 04/19/25 14:32 Bisacodyl 10 Mg Supp [place] 05/19/25 08:10 Q72H PRN CONSTIPATION Protocol Carbamide Peroxide 5 drop 04/13/25 22:00 04/13/25 23:38 Carbamide Peroxide Otic Lala 15 Ml Btl BOTH EARS 05/13/25 21:59 5 drops Q61D KIT Administration Collagenase 0 gm 04/14/25 21:00 04/18/25 21:49 Collagenase Oint 30 Gm Tube TOP 05/14/25 20:59 1 applicatio HS KIT Administration Fludrocortisone Acetate 0.1 mg 04/14/25 09:00 04/19/25 08:39 Fludrocortisone Acetate 0.1 Mg Tablet GT 05/14/25 08:59 0.1 mg DAILY KIT Administration Guaifenesin 200 mg 04/18/25 10:32 Guaifenesin Syrup 200 Mg/10 Ml Udc GT 05/18/25 10:31 QID PRN thickened sputum/COUGH Protocol Meropenem 1,000 mg/ Sodium 50 mls @ 100 mls/hr 04/14/25 21:00 04/19/25 08:38 Chloride IV 04/21/25 20:59 100 mls/hr Q12HR KIT Administration Dextrose 1,000 mls @ 60 mls/hr 04/18/25 08:16 04/19/25 02:38 D5w IV 05/18/25 08:15 60 mls/hr .[id number] KIT Administration Lansoprazole 30 mg 04/16/25 09:00 04/19/25 08:39 Lansoprazole 30 Mg Tab.Rap. GT 05/14/25 08:59 30 mg QDAY KIT Administration Levetiracetam 1,000 mg 04/13/25 22:00 04/19/25 08:38 Levetiracetam Liqd 500 Mg/5 Ml Udc GT 05/13/25 21:59 1,000 mg BID KIT Administration Lorazepam 0.5 mg 04/19/25 14:57 Lorazepam 0.5 Mg Tablet GT 04/24/25 14:56 Q6HR PRN anxiety Midodrine 10 mg 04/13/25 22:45 04/19/25 13:37 Midodrine 5 Mg Tablet GT 05/13/25 22:44 10 mg TID KIT Administration Ondansetron HCl 4 mg 04/13/25 21:42 Ondansetron Inj 2 Mg/Ml Inj 2 Ml IVP 05/13/25 21:41 Q6H PRN NAUSEA OR VOMITING Protocol Phenytoin 600 mg 04/19/25 21:00 Phenytoin 100 Mg/4 Ml Udc GT 05/19/25 20:59 BID KIT Polyethylene Glycol 17 gm 04/19/25 10:30 04/19/25 13:36 Polyethylene Glycol 17 Gm Packet GT 05/19/25 10:29 Not Given QDAY KIT Sodium Chloride 5 ml 04/14/25 14:01 04/19/25 14:07 Sodium Chloride 0.9% Flush 10 Ml Syringe IVP 05/13/25 21:59 5 ml Q8HR KIT Administration Sodium Hypochlorite 473 ml 04/14/25 21:00 04/19/25 08:37 Sod Hypochlorite 1/4 Str 473 Ml Btl IRRIG 05/14/25 20:59 1 applicatio BID KIT Administration Sodium Phosphate 133 ml 04/19/25 08:[address],[place]-Dibasic 133 Ml (Fleet) Enema Btl RC PRN PRN No BM Per Bowel Management Protocol Plan This 39-year-old male with a past medical history of 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, status post tracheostomy, mechanical ventilation, PEG tube, suprapubic catheter, right nephrostomy tube due to obstructive uropathy, and bilateral upper extremity DVT, presented to [facility] from in- house subacute for fever will be admitted for IV antibiotics for treatment of ventilator associated pneumonia. #Phenytoin toxicity likely due to ?medication dosage pb #Hx of seizure, patient history #Anoxic brain injury post cardiac arrest in chronic vegetative state Phenytoin level elevated >40. Poison control was contacted and recommended to ask lab if a more specific measurement can be done to get a better idea of the blood levels. They also recommended to monitor for respiratory depression, coma, seizures, rash Patient history as stated. Patient is nonverbal at baseline and is a&o x0. Phenytoin reached therapeutic range, confirmed with poison control safe to resume at provider discretion. Plan: Continue with home medications Phenytoin 600mg GT BID Monitoring with EKG, BMP and phenytoin levels daily #Acute on chronic hypoxic resp failure on mech vent #Ventilator associated pneumonia Patient presenting with fevers noted at subacute facility, trach and PEG and high risk for aspiration secondary to being ventilated In the ED, patient has leukocytosis, elevated Pro-Chuck Chest x-ray shows bibasilar and right middle lobe pneumonia Urinalysis does show signs of infection with positive nitrites, leukocyte Esterase and +1 bacteria, suprapubic catheter Patient has a chronic history of recurring pneumonia Plan: Continue meropenem Frequent suctioning and chest PT Sputum culture growing ESBL Proteus mirabilis sensitive to meropenem. Blood cultures showing no growth. Urine cultures showed no growth. Monitor for fever spikes Robitussin, DuoNebs as needed #Constipation, suspected ileus Patient had rapid response due to tachypnea, was found to have abdominal distention and tenderness, given morphine and KUB ordered. KUB showed significant stool burden despite patient having regular bowel movements. Plan: As needed Fleet enemas Scheduled MiraLAX Monitor for bowel movements Ativan as needed ordered for agitation/anxiety #ELDON on CKD Stage 3B #Hyperosmolar hypernatremia and hyperchloremia #Hx Obstructive uropathy with neurogenic bladder with Rt nephrostomy tube+ suprapubic cath -Related to phenytoin toxicity vs Medications Patient has a nephrostomy tube (placed at [facility]) as well as suprapubic catheter Patient had elevated creatinine of 3.2 which is above his baseline of around 1.6. Was Given 1L bolus in ED. Sodium elevated at 154 possibly due to hx of obstructive uropathy in setting of pneumonia vs a low volume picture. Retroperitoneal ultrasound showed bilateral hydronephrosis. Urologist said that no acute intervention required at this point. Sodium improved 149. Creatinine improved to 1.7. Patient is making adequate urine. Sodium improved to 143, reduced IVF and free water flushes. Plan: Nephrology consulted, appreciate recommendations Free water flushes to 200cc every 4 hours, will continue to monitor Renally dose medications Avoid nephrotoxic agents #Decubitus ulcer #History Osteomyelitis History of sacral wound culture grew ESBL Proteus on 01/08/2025 sensitive to Augmentin in the past Plan: Wound culture grew Proteus, continue meropenem 1,000 mg IV Q12 hr Wound care referral #History of bilateral upper extremity DVT #History of factor V Leyden deficiency Patient with history of bilateral upper extremity DVT history of factor V Leyden deficiency, was swtiched to Eliquis 5mg GT BID on last discharge Plan: Continue Eliquis 5 mg GT bid #Anemia of chronic disease Patient's hemoglobin was 7.9 No signs of active bleeding. Plan: Continue to monitor #Adrenal insufficiency, suspected Patient takes 0.1 mg fludrocortisone at twice daily at home, suspect due to history of adrenal sufficiency although not clearly documented. Would explain patient's significant hypotension and continued soft blood pressure. Plan: Continuing home med: Fludrocortisone 0.1 mg GT daily Health management: Diet: Jevity Tube Feeds with water flushes DVT ppx: Eliquis 5 mg GT BID GI ppx: Protonix Lines: PIV, suprapubic catheter, right-sided nephrostomy tube, trach Code status: DNR Patient was seen and discussed with attending physician,Dr Myrna Crespo MD PGY-2 Attending Provider Attestation/Addendum I, Nuris Norris DO, attest that I was physically present for the purdy portions of the service and evaluated the patient with the resident and I reviewed and discussed the case with the resident and agree with the resident's findings and plans of care as documented above Patient seen and evaluated this AM. Patient appears to be in some distress with abdominal discomfort. Noted to have stool impaction on KUB. Will give bowel regimen. Tachycardia and tachypnea appears improved with ativan. Phenytoin levels WNL, will restart short acting phenytoin
[2025-04-19 17:36] LABS: Phenytoin (Dilantin) 10.1 mcg/mL
[2025-04-19] MEDS: PHENYTOIN 100 MG/4 ML UDC 600 MG GT (21:33)
[2025-04-19] MEDS: COLLAGENASE OINT 30 GM TUBE TOP (21:54)
[2025-04-19] MEDS: Artificial Tears 225 DROP/15 ML BTL BOTH EYES (21:54)
[2025-04-20] VITALS (14 sets, daily range): BP systolic 86–113; BP diastolic 69–80; PULSE 112–144; RESP 22–47; TEMP 36.1–37.1; O2SAT 93–99; BMI 27.0
[2025-04-20] MEDS: BACLOFEN 10 MG TABLET 5 MG GT ×3 (06:17→21:31)
[2025-04-20] MEDS: MIDODRINE 5 MG TABLET 10 MG GT ×2 (06:17→21:28)
[2025-04-20 06:18] LABS: Basophils # (Auto) 0.1 Thou/mm3 (0.0-0.2); Basophils % (Auto) 1 % (0-2.5); Eosinophils # (Auto) 2.8 Thou/mm3 (0.0-0.5); Eosinophils % (Auto) 18 % (0-10); Hematocrit 30.1 % (41.0-53.0); Hemoglobin 9.5 g/dL (13.5-16.0); Immature Granulocytes Auto 0.16 Thou/mm3 (0.00-0.00); Lymphocytes # (Auto) 1.8 Thou/mm3 (1.0-4.8); Lymphocytes % (Auto) 12 % (10-50); Mean Corpuscular HGB Conc 31.6 g/dl (31.0-37.0); Mean Corpuscular Hemoglobin 28.0 pg (25.0-35.0); Mean Corpuscular Volume 89 fL (80-100); Monocytes # (Auto) 0.7 Thou/mm3 (0.0-0.8); Monocytes % (Auto) 5 % (0-12); Neutrophils # (Auto) 9.6 Thou/mm3 (1.8-7.7); Neutrophils % (Auto) 64 % (37-80); Nucleated Red Blood Cell # 0.00 Thou/mm3 (0.00-0.00); Nucleated Red Blood Cell % 0 /100 WBC (0); Platelet Count 383 Thou/mm3 (140-440); RDW Standard Deviation 48.9 fL (35.1-43.9); Red Blood Count 3.39 Miln/mm3 (4.50-5.90); White Blood Count 15.1 Thou/mm3 (3.8-10.6)
[2025-04-20 06:55] LABS: Alanine Aminotransferase 53 U/L (10-49); Albumin, Serum 3.8 gm/dL (3.5-5.0); Albumin/Globulin Ratio 0.9 (1.2-2.2); Alkaline Phosphatase 589 U/L (46-116); Anion Gap 14 (7-16); Aspartate Amino Transferase 33 U/L (0-34); BUN/Creatinine Ratio 22 Ratio (12-20); Bilirubin,Total 0.2 mg/dL (0.3-1.2); Blood Urea Nitrogen 52 mg/dL (9-23); Calcium 9.1 mg/dL (8.3-10.6); Calcium (Corrected) 9.3 mg/dL (8.5-10.1); Carbon Dioxide 24.8 mMol/L (20.0-31.0); Chloride 106 mMol/L (98-107); Creatinine (Component) 2.4 mg/dL (0.6-1.3); Estimated Creatinine Clearance 36.8 mL/min (>60); Globulin 4.1 gm/dL (2.3-3.5); Glucose 129 mg/dL (74-106); Magnesium 2.0 mg/dL (1.6-2.6); Osmolality,Calculated 304 (275-295); Phenytoin (Dilantin) 9.5 mcg/mL; Phosphorous 4.7 mg/dL (2.4-5.1); Potassium 4.2 mMol/L (3.4-5.1); Sodium 145 mMol/L (136-145); Total Protein 7.9 gm/dL (5.7-8.2); eGFR 34 See Note
[2025-04-20] MEDS: guaiFENesin SYRUP 200 MG/10 ML UDC GT (07:31)
--- NOTE | 2025-04-20 07:51 | XR_ITS ---
Examination: Abdomen sonogram, Limited Date and time of exam: April 20, 2025 0837 hours INDICATIONS: Elevated liver function tests on laboratory examination today Technique: Real-time calvert scale transabdominal sonographic images of the upper abdomen obtained. Findings: Absent gallbladder Normal common bile duct 0.3 cm Pancreas obscured by bowel gas Liver 16.8 cm fatty infiltration Normal hepatopedal portal venous flow Patent IVC IMPRESSION: Mild hepatomegaly with fatty infiltration no focal liver lesions
[2025-04-20] MEDS: FLUDROCORTISONE ACETATE 0.1 MG TABLET GT (08:35)
[2025-04-20] MEDS: PHENYTOIN 100 MG/4 ML UDC 600 MG GT ×2 (08:35→21:26)
[2025-04-20] MEDS: MEROPENEM INJ 1,000 MG in SODIUM CHLORIDE 0.9% (Popper) 50 ML 100 MG IV ×2 (08:35→21:26)
[2025-04-20] MEDS: APIXABAN 2.5 MG TABLET 5 MG GT ×2 (08:35→21:25)
[2025-04-20] MEDS: POLYETHYLENE GLYCOL 17 GM PACKET GT (08:36)
[2025-04-20] MEDS: RINGERS LACTATED 1000 ML 1,000 ML 70 ML IV (08:36)
[2025-04-20] MEDS: levETIRAcetam LIQD 500 MG/5 ML UDC 1000 MG GT ×2 (08:36→21:26)
[2025-04-20] MEDS: LANSOPRAZOLE 30 MG TAB.RAP.DR GT (08:36)
[2025-04-20] MEDS: SOD HYPOCHLORITE 1/4 STR 473 ML BTL IRRIG ×2 (08:37→21:27)
[2025-04-20] MEDS: Artificial Tears 225 DROP/15 ML BTL BOTH EYES ×2 (08:54→21:25)
--- NOTE | 2025-04-20 10:48 | PD.RESPRO ---
Documentation for date of: 04/20/25 Subjective Subjective Interval history: Overnight events: No acute events overnight. Patient was seen and examined at bedside. AM vitals and labs reviewed. BUN 52, creatinine 2.4, and GFR 34. WBC elevated at 15.1. Patient is currently on meropenem. LR was started earlier this morning. Patient remains unresponsive to questioning and minimally responsive to verbal stimulation. Patient unable to follow commands. Trach tube is in place with mechanical ventilation set at PEEP 5.0 and FiO2 40%. Ins/Outs 1830/4450. Review of systems otherwise negative except for what is mentioned above. Exam Vital Signs Temp Pulse Resp BP Pulse Ox O2 Del Method O2 Flow Rate 98.4 F 136 H 34 H 95/78 93 L Mechanical Ventilation 4 04/20/25 08:00 04/20/25 08:00 04/20/25 08:00 04/20/25 08:00 04/20/25 08:00 04/20/25 08:00 04/20/25 08:00 FiO2 40 04/20/25 08:00 Narrative Exam Physical Exam: General: No acute distress. Non-responsive Skin: Warm, dry, intact, no obvious rash. Head: Normocephalic, atraumatic. Eye: Normal conjunctiva, PERRL. Cardiovascular: Unable to appreciate heart sounds over lung sounds. Respiratory: Mechanical lung sounds on auscultation, respirations unlabored, no crackles, no wheezing. Gastrointestinal: Soft, nontender, non-distended. Extremities: No edema, no cyanosis, no clubbing. 2+ radial pulse bilaterally, 2+ pedal pulse bilaterally. Objective Labs 04/24/25 05:51 04/24/25 05:51 Labs: Laboratory Results - last 24 hr 04/19/25 04/20/25 17:10 04:56 WBC 15.1 H RBC 3.39 L Hgb 9.5 L Hct 30.1 L MCV 89 MCH 28.0 MCHC 31.6 RDW Std Deviation 48.9 H Plt Count 383 D Neut % (Auto) 64 Lymph % (Auto) 12 Atkinson % (Auto) 5 Eos % (Auto) 18 H Baso % (Auto) 1 Neut # (Auto) 9.6 H Lymph # (Auto) 1.8 Atkinson # (Auto) 0.7 Eos # (Auto) 2.8 H Baso # (Auto) 0.1 Immature Gran # (Auto) 0.16 H Absolute Nucleated RBC 0.00 Immature Gran % 1 H Nucleated RBC % 0 Sodium 145 Potassium 4.2 Chloride 106 Carbon Dioxide 24.8 Anion Gap 14 BUN 52 H Creatinine 2.4 H Estim Creat Clear Calc 36.8 L eGFR 34 L BUN/Creatinine Ratio 22 H Glucose 129 H Calculated Osmolality 304 H Calcium 9.1 Corrected Calcium 9.3 Phosphorus 4.7 Magnesium 2.0 Total Bilirubin 0.2 L AST 33 ALT 53 H Alkaline Phosphatase 589 H D Total Protein 7.9 Albumin 3.8 D Globulin 4.1 H Albumin/Globulin Ratio 0.9 L Phenytoin 10.1 9.5 ABG Interpretation ABG results: 04/15/25 04/19/25 10:20 07:08 ABG pH 7.32 L 7.42 ABG pCO2 49 H 39 ABG pO2 120 H 71 L ABG HCO3 25 26 ABG O2 Saturation 99 H 96 ABG Base Excess -1 1 Quality Measures Quality Measures VTE prophylaxis (Eliquis 5 mg twice daily) Assessment & Plan Assessment Current Active Medications: Generic Name Dose Route Start Last Admin Trade Name Freq PRN Reason Stop Dose Admin Acetaminophen 325 mg 04/13/25 21:45 04/18/25 13:31 Acetaminophen Lala 325 Mg/10 Ml Udc GT 05/13/25 21:44 325 mg Q4HR PRN Administration Pain 1-3 Or Fever > 101 Albuterol/Ipratropium 3 ml 04/18/25 09:53 04/18/25 10:40 Albuterol/Ipratropium (Duoneb) Rt Lala 3 Ml Nebu INH 05/18/25 09:52 3 ml Q2HR PRN Administration SHORTNESS OF BREATH OR WHEEZE Apixaban 5 mg 04/14/25 09:00 04/20/25 08:35 Apixaban 2.5 Mg Tablet GT 05/05/25 08:59 5 mg BID KIT Administration Artificial Tears 1 drop 04/14/25 09:00 04/20/25 08:54 Artificial Tears 225 Drop/15 Ml Btl BOTH EYES 05/14/25 08:59 1 drop BID KIT Administration Baclofen 5 mg 04/13/25 22:00 04/20/25 06:17 Baclofen 10 Mg Tablet GT 05/13/25 21:59 5 mg TID KIT Administration Bisacodyl 10 mg 04/19/25 14:32 Bisacodyl 10 Mg Supp OR 05/19/25 08:10 Q72H PRN CONSTIPATION Protocol Carbamide Peroxide 5 drop 04/13/25 22:00 04/13/25 23:38 Carbamide Peroxide Otic Lala 15 Ml Btl BOTH EARS 05/13/25 21:59 5 drops Q61D KIT Administration Collagenase 0 gm 04/14/25 21:00 04/19/25 21:54 Collagenase Oint 30 Gm Tube TOP 05/14/25 20:59 1 applicatio HS KIT Administration Fludrocortisone Acetate 0.1 mg 04/14/25 09:00 04/20/25 08:35 Fludrocortisone Acetate 0.1 Mg Tablet GT 05/14/25 08:59 0.1 mg DAILY KIT Administration Guaifenesin 200 mg 04/18/25 10:32 04/20/25 07:31 Guaifenesin Syrup 200 Mg/10 Ml [facility] 05/18/25 10:31 200 mg QID PRN Administration thickened sputum/COUGH Protocol Meropenem 1,000 mg/ Sodium 50 mls @ 100 mls/hr 04/14/25 21:00 04/20/25 08:35 Chloride IV 04/21/25 20:59 100 mls/hr Q12HR KIT Administration Lactated Ringer's 1,000 mls @ 70 mls/hr 04/20/25 07:38 04/20/25 08:36 Lactated Ringers IV 04/20/25 21:55 70 mls/hr .[id number] ONE Administration Lansoprazole 30 mg 04/16/25 09:00 04/20/25 08:36 Lansoprazole 30 Mg Tab.Rap. GT 05/14/25 08:59 30 mg QDAY KIT Administration Levetiracetam 1,000 mg 04/13/25 22:00 04/20/25 08:36 Levetiracetam Liqd 500 Mg/5 Ml Udc 05/13/25 21:59 1,000 mg BID KIT Administration Lorazepam 0.5 mg 04/19/25 14:57 04/20/25 07:27 Lorazepam 0.5 Mg Tablet GT 04/24/25 14:56 0.5 mg Q6HR PRN Administration anxiety Midodrine 10 mg 04/13/25 22:45 04/20/25 06:17 Midodrine 5 Mg Tablet GT 05/13/25 22:44 10 mg TID KIT Administration Ondansetron HCl 4 mg 04/13/25 21:42 Ondansetron Inj 2 Mg/Ml Inj 2 Ml IVP 05/13/25 21:41 Q6H PRN NAUSEA OR VOMITING Protocol Phenytoin 600 mg 04/19/25 21:00 04/20/25 08:35 Phenytoin 100 Mg/4 Ml Udc GT 05/19/25 20:59 600 mg BID KIT Administration Polyethylene Glycol 17 gm 04/19/25 10:30 04/20/25 08:36 Polyethylene Glycol 17 Gm Packet GT 05/19/25 10:29 17 gm QDAY KIT Administration Sodium Chloride 5 ml 04/14/25 14:01 04/20/25 06:26 Sodium Chloride 0.9% Flush 10 Ml Syringe IVP 05/13/25 21:59 5 ml Q8HR KIT Administration Sodium Hypochlorite 473 ml 04/14/25 21:00 04/20/25 08:37 Sod Hypochlorite 1/4 Str 473 Ml Btl IRRIG 05/14/25 20:59 473 applicatio BID KIT Administration Sodium Phosphate 133 ml 04/19/25 08:11 Sodium Phos,Atkinson-Dibasic 133 Ml (Fleet) Enema Btl RC PRN PRN No BM Per Bowel Management Protocol Plan Mr. Smith is a 39 year old male with a relevant medical history of anoxic brain injury, s/p tracheotomy, mechanical ventilation, and right nephrostomy tube for obstructive uropathy, who presented with a fever. The patient was admitted for use of IV antibiotics in suspicion of ventilator associated pneumonia. Nephrology was consulted due to concerns of ELDON on CKD IV. #ELDON on CKD IIIB #Obstructive uropathy #Hypernatremia (resolved) Patient was admitted with BUN of 102, Cr 3.4, and eGFR of 22. Given the patient's prior history of obstructive uropathy, ELDON may be due to ATN 2/2 drops in BP as recorded in EMR prior to admission to [facility]. - Renal function lab values improving over time. - Renally adjust medications. - IV fluid resuscitation as tolerated. - Nephrology will continue to follow Patient was discussed with the Nephrology attending, Dr. Duran. Thank you for allowing us to participate in the care of this patient. Salazar Smalls, PGY-1 Attending Provider Attestation/Addendum Agree with assessment and plan and fingings by resident Kevin Duran MD
--- NOTE | 2025-04-20 12:00 | PC.NURSE ---
Patient becomes tachycardic and tachypneic during any turn. He was suctioned and given ativan but does not help his tachypnea. I spoke with SINGE MACHINE OPERATOR regarding holding off any turns after speaking with Dr. Norris. We attempted to place pillows on both sides to float bottom since patient has extensive wounds, but patient continued to have RR at 30-50. When pt was placed back on supine position he was able to reduce his work of breathing. Dr. norris was made aware of findings and ordered to hold off turns for the remained of the shift.
[2025-04-20] MEDS: LORazepam 2 MG/ML VIAL 1 MG IVP (12:45)
[2025-04-20] MEDS: ALBUTEROL/IPRATROPIUM (Duoneb) RT SOL 3 ML NEBU INH (12:49)
--- NOTE | 2025-04-20 14:34 | ESPR_ITS ---
Documentation for date of: 04/20/25 Subjective Subjective Interval history: No overnight events. Patient seen and examined at bedside, tachycardiac, does not appear distressed. Multiple bowel movements. Receiving bolus of fluid. Continue monitoring pulse, phenytoin levels. Possible DC tomorrow. Exam Vital Signs Temp Pulse Resp BP Pulse Ox O2 Del Method O2 Flow Rate 98.8 F 144 H 47 H 92/71 95 Mechanical Ventilation 4 04/20/25 12:00 04/20/25 12:51 04/20/25 12:51 04/20/25 12:00 04/20/25 12:51 04/20/25 12:00 04/20/25 12:00 FiO2 40 04/20/25 12:51 Narrative Exam GENERAL APPEARANCE: [facility] is [facility] HEENT: NC, AT. dry mucus membrane. EOMI, clear conjunctiva, oropharynx clear. NECK: Supple without lymphadenopathy. No stiffness or restricted ROM. HEART: sinus tacycardia with regular rhythm, normal S1/S2, no m/r/g LUNGS: coarse rhonchi with copious thick secretions ABDOMEN: Soft, nontender, minimal distention with good bowel sounds heard. PEG tube EXTREMITIES: Without cyanosis, clubbing or edema. 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 No discoloration/rashes/edema/amputations. +Pedal pulses present B/L. Objective Labs 04/21/25 04:55 04/21/25 04:55 Labs: Laboratory Results - last 24 hr 04/19/25 04/20/25 17:10 04:56 WBC 15.1 H RBC 3.39 L Hgb 9.5 L Hct 30.1 L MCV 89 MCH 28.0 MCHC 31.6 RDW Std Deviation 48.9 H Plt Count 383 D Neut % (Auto) 64 Lymph % (Auto) 12 Ponce % (Auto) 5 Eos % (Auto) 18 H Baso % (Auto) 1 Neut # (Auto) 9.6 H Lymph # (Auto) 1.8 Ponce # (Auto) 0.7 Eos # (Auto) 2.8 H Baso # (Auto) 0.1 Immature Gran # (Auto) 0.16 H Absolute Nucleated RBC 0.00 Immature Gran % 1 H Nucleated RBC % 0 Sodium 145 Potassium 4.2 Chloride 106 Carbon Dioxide 24.8 Anion Gap 14 BUN 52 H Creatinine 2.4 H Estim Creat Clear Calc 36.8 L eGFR 34 L BUN/Creatinine Ratio 22 H Glucose 129 H Calculated Osmolality 304 H Calcium 9.1 Corrected Calcium 9.3 Phosphorus 4.7 Magnesium 2.0 Total Bilirubin 0.2 L AST 33 ALT 53 H Alkaline Phosphatase 589 H D Total Protein 7.9 Albumin 3.8 D Globulin 4.1 H Albumin/Globulin Ratio 0.9 L Phenytoin 10.1 9.5 ABG Interpretation ABG results: 04/15/25 04/19/25 10:20 07:08 ABG pH 7.32 L 7.42 ABG pCO2 49 H 39 ABG pO2 120 H 71 L ABG HCO3 25 26 ABG O2 Saturation 99 H 96 ABG Base Excess -1 1 Quality Measures Quality Measures VTE prophylaxis (Eliquis 5 mg twice daily) Assessment & Plan Assessment Current Active Medications: Generic Name Dose Route Start Last Admin Trade Name Freq PRN Reason Stop Dose Admin Acetaminophen 325 mg 04/13/25 21:45 04/18/25 13:31 Acetaminophen Lala 325 Mg/10 Ml Udc GT 05/13/25 21:44 325 mg Q4HR PRN Administration Pain 1-3 Or Fever > 101 Albuterol/Ipratropium 3 ml 04/18/25 09:53 04/20/25 12:49 Albuterol/Ipratropium (Duoneb) Rt Lala 3 Ml Nebu INH 05/18/25 09:52 3 ml Q2HR PRN Administration SHORTNESS OF BREATH OR WHEEZE Apixaban 5 mg 04/14/25 09:00 04/20/25 08:35 Apixaban 2.5 Mg Tablet GT 05/05/25 08:59 5 mg BID KIT Administration Artificial Tears 1 drop 04/14/25 09:00 04/20/25 08:54 Artificial Tears 225 Drop/15 Ml Btl BOTH EYES 05/14/25 08:59 1 drop BID KIT Administration Baclofen 5 mg 04/13/25 22:00 04/20/25 06:17 Baclofen 10 Mg Tablet GT 05/13/25 21:59 5 mg TID KIT Administration Bisacodyl 10 mg 04/19/25 14:32 Bisacodyl 10 Mg Supp AL 05/19/25 08:10 Q72H PRN CONSTIPATION Protocol Carbamide Peroxide 5 drop 04/13/25 22:00 04/13/25 23:38 Carbamide Peroxide Otic Lala 15 Ml Btl BOTH EARS 05/13/25 21:59 5 drops Q61D KIT Administration Collagenase 0 gm 04/14/25 21:00 04/19/25 21:54 Collagenase Oint 30 Gm Tube TOP 05/14/25 20:59 1 applicatio HS KIT Administration Fludrocortisone Acetate 0.1 mg 04/14/25 09:00 04/20/25 08:35 Fludrocortisone Acetate 0.1 Mg Tablet 05/14/25 08:59 0.1 mg DAILY KIT Administration Guaifenesin 200 mg 04/18/25 10:32 04/20/25 07:31 Guaifenesin Syrup 200 Mg/10 Ml Udc 05/18/25 10:31 200 mg QID PRN Administration thickened sputum/COUGH Protocol Meropenem 1,000 mg/ Sodium 50 mls @ 100 mls/hr 04/14/25 21:00 04/20/25 08:35 Chloride IV 04/21/25 20:59 100 mls/hr Q12HR KIT Administration Lactated Ringer's 1,000 mls @ 70 mls/hr 04/20/25 07:38 04/20/25 08:36 Lactated Ringers IV 04/20/25 21:55 70 mls/hr .[id number] ONE Administration Lansoprazole 30 mg 04/16/25 09:00 04/20/25 08:36 Lansoprazole 30 Mg Tab.Rap. GT 05/14/25 08:59 30 mg QDAY KIT Administration Levetiracetam 1,000 mg 04/13/25 22:00 04/20/25 08:36 Levetiracetam Liqd 500 Mg/5 Ml Udc 05/13/25 21:59 1,000 mg BID KIT Administration Lorazepam 0.5 mg 04/19/25 14:57 04/20/25 07:27 Lorazepam 0.5 Mg Tablet 04/24/25 14:56 0.5 mg Q6HR PRN Administration anxiety Midodrine 10 mg 04/13/25 22:45 04/20/25 06:17 Midodrine 5 Mg Tablet 05/13/25 22:44 10 mg TID KIT Administration Ondansetron HCl 4 mg 04/13/25 21:42 Ondansetron Inj 2 Mg/Ml Inj 2 Ml IVP 05/13/25 21:41 Q6H PRN NAUSEA OR VOMITING Protocol Phenytoin 600 mg 04/19/25 21:00 04/20/25 08:35 Phenytoin 100 Mg/4 Ml Udc GT 05/19/25 20:59 600 mg BID KIT Administration Polyethylene Glycol 17 gm 04/19/25 10:30 04/20/25 08:36 Polyethylene Glycol 17 Gm Packet GT 05/19/25 10:29 17 gm QDAY KIT Administration Sodium Chloride 5 ml 04/14/25 14:01 04/20/25 06:26 Sodium Chloride 0.9% Flush 10 Ml Syringe IVP 05/13/25 21:59 5 ml Q8HR KIT Administration Sodium Hypochlorite 473 ml 04/14/25 21:00 04/20/25 08:37 Sod Hypochlorite 1/4 Str 473 Ml Btl IRRIG 05/14/25 20:59 473 applicatio BID KIT Administration Sodium Phosphate 133 ml 04/19/25 08:11 Sodium Phos,Ponce-Dibasic 133 Ml (Fleet) Enema Btl RC PRN PRN No BM Per Bowel Management Protocol Plan This 39-year-old male with a past medical history of 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, status post tracheostomy, mechanical ventilation, PEG tube, suprapubic catheter, right nephrostomy tube due to obstructive uropathy, and bilateral upper extremity DVT, presented to [facility] from in- house subacute for fever will be admitted for IV antibiotics for treatment of ventilator associated pneumonia. #Phenytoin toxicity likely due to ?medication dosage pb #Hx of seizure, patient history #Anoxic brain injury post cardiac arrest in chronic vegetative state Phenytoin level elevated >40. Poison control was contacted and recommended to ask lab if a more specific measurement can be done to get a better idea of the blood levels. They also recommended to monitor for respiratory depression, coma, seizures, rash Patient history as stated. Patient is nonverbal at baseline and is a&o x0. Phenytoin reached therapeutic range, confirmed with poison control safe to resume at provider discretion. Plan: Continue with home medications Phenytoin 600mg GT BID Monitoring with EKG, BMP and phenytoin levels daily #Acute on chronic hypoxic resp failure on mech vent #Ventilator associated pneumonia Patient presenting with fevers noted at subacute facility, trach and PEG and high risk for aspiration secondary to being ventilated In the ED, patient has leukocytosis, elevated Pro-Chuck Chest x-ray shows bibasilar and right middle lobe pneumonia Urinalysis does show signs of infection with positive nitrites, leukocyte Esterase and +1 bacteria, suprapubic catheter Patient has a chronic history of recurring pneumonia Plan: Continue meropenem (04/14-04/21) Frequent suctioning and chest PT Sputum culture growing ESBL Proteus mirabilis sensitive to meropenem. Blood cultures showing no growth. Urine cultures showed no growth. Monitor for fever spikes Robitussin, DuoNebs as needed #Constipation, suspected ileus Patient had rapid response due to tachypnea, was found to have abdominal distention and tenderness, given morphine and KUB ordered. KUB showed significant stool burden despite patient having regular bowel movements. Patient had multiple BMs with improvement in abdominal distention and tenderness. Plan: As needed Fleet enemas Scheduled MiraLAX Monitor for bowel movements Ativan as needed ordered for agitation/anxiety #ELDON on CKD Stage 3B #Hyperosmolar hypernatremia and hyperchloremia #Hx Obstructive uropathy with neurogenic bladder with Rt nephrostomy tube+ suprapubic cath -Related to phenytoin toxicity vs Medications Patient has a nephrostomy tube (placed at [facility]) as well as suprapubic catheter Patient had elevated creatinine of 3.2 which is above his baseline of around 1.6. Was Given 1L bolus in ED. Sodium elevated at 154 possibly due to hx of obstructive uropathy in setting of pneumonia vs a low volume picture. Retroperitoneal ultrasound showed bilateral hydronephrosis. Urologist said that no acute intervention required at this point. Sodium improved 149. Creatinine improved to 1.7. Patient is making adequate urine. Sodium improved to 143, reduced IVF and free water flushes. Plan: Nephrology consulted, appreciate recommendations Free water flushes to 300cc every 3 hours, will continue to monitor Renally dose medications Avoid nephrotoxic agents #Decubitus ulcer #History Osteomyelitis History of sacral wound culture grew ESBL Proteus on 01/08/2025 sensitive to Augmentin in the past Plan: Wound culture grew Proteus, continue meropenem 1,000 mg IV Q12 hr (04/14-04/21) Wound care referral #History of bilateral upper extremity DVT #History of factor V Leyden deficiency Patient with history of bilateral upper extremity DVT history of factor V Leyden deficiency, was swtiched to Eliquis 5mg GT BID on last discharge Plan: Continue Eliquis 5 mg GT bid #Anemia of chronic disease Patient's hemoglobin was 7.9 No signs of active bleeding. Plan: Continue to monitor #Adrenal insufficiency, suspected Patient takes 0.1 mg fludrocortisone at twice daily at home, suspect due to history of adrenal sufficiency although not clearly documented. Would explain patient's significant hypotension and continued soft blood pressure. Plan: Continuing home med: Fludrocortisone 0.1 mg GT daily Health management: Diet: Jevity Tube Feeds with water flushes DVT ppx: Eliquis 5 mg GT BID GI ppx: Protonix Lines: PIV, suprapubic catheter, right-sided nephrostomy tube, trach Code status: DNR Patient was seen and discussed with attending physician Dr Myrna Crespo MD PGY-2 Attending Provider Attestation/Addendum I, Nuris Norris DO, attest that I was physically present for the purdy portions of the service and evaluated the patient with the resident and I reviewed and discussed the case with the resident and agree with the resident's findings and plans of care as documented above Patient seen and evaluated this AM. Patient was more agitated and tachycardic after being moved to radiology this AM. Patient improved with ativan. No acute events overnight otherwise. Will continue with IV abx and patient has not had BM. Will order bowel regimen.
[2025-04-20] MEDS: RINGERS LACTATED 1000 ML 1,000 ML 999 ML IV (15:53)
[2025-04-20] MEDS: MORPHINE SULF INJ 10 MG/ML VIAL 2 MG IVP (17:44)
[2025-04-20] MEDS: COLLAGENASE OINT 30 GM TUBE TOP (21:25)
[2025-04-21] VITALS (16 sets, daily range): BP systolic 94–116; BP diastolic 60–79; PULSE 100–135; RESP 19–43; TEMP 36.3–38.4; O2SAT 91–99; BMI 27.0
[2025-04-21] MEDS: MIDODRINE 5 MG TABLET 10 MG GT ×3 (05:27→22:03)
[2025-04-21] MEDS: BACLOFEN 10 MG TABLET 5 MG GT ×3 (05:31→22:03)
[2025-04-21 06:11] LABS: Basophils # (Auto) 0.1 Thou/mm3 (0.0-0.2); Basophils % (Auto) 0 % (0-2.5); Eosinophils # (Auto) 2.4 Thou/mm3 (0.0-0.5); Eosinophils % (Auto) 10 % (0-10); Hematocrit 27.1 % (41.0-53.0); Immature Granulocytes Auto 0.19 Thou/mm3 (0.00-0.00); Lymphocytes # (Auto) 2.0 Thou/mm3 (1.0-4.8); Lymphocytes % (Auto) 8 % (10-50); Mean Corpuscular HGB Conc 30.3 g/dl (31.0-37.0); Mean Corpuscular Hemoglobin 28.0 pg (25.0-35.0); Mean Corpuscular Volume 93 fL (80-100); Monocytes # (Auto) 1.2 Thou/mm3 (0.0-0.8); Monocytes % (Auto) 5 % (0-12); Neutrophils # (Auto) 17.8 Thou/mm3 (1.8-7.7); Neutrophils % (Auto) 75 % (37-80); Nucleated Red Blood Cell # 0.00 Thou/mm3 (0.00-0.00); Nucleated Red Blood Cell % 0 /100 WBC (0); Platelet Count 342 Thou/mm3 (140-440); RDW Standard Deviation 50.9 fL (35.1-43.9); Red Blood Count 2.93 Miln/mm3 (4.50-5.90); White Blood Count 23.6 Thou/mm3 (3.8-10.6)
[2025-04-21 06:12] LABS: Hemoglobin 8.2 g/dL (13.5-16.0)
[2025-04-21 06:32] LABS: Alanine Aminotransferase 86 U/L (10-49); Albumin, Serum 3.3 gm/dL (3.5-5.0); Albumin/Globulin Ratio 1.0 (1.2-2.2); Alkaline Phosphatase 589 U/L (46-116); Anion Gap 15 (7-16); Aspartate Amino Transferase 85 U/L (0-34); BUN/Creatinine Ratio 23 Ratio (12-20); Bilirubin,Total 0.2 mg/dL (0.3-1.2); Blood Urea Nitrogen 50 mg/dL (9-23); Calcium 8.5 mg/dL (8.3-10.6); Calcium (Corrected) 9.1 mg/dL (8.5-10.1); Carbon Dioxide 25.5 mMol/L (20.0-31.0); Chloride 109 mMol/L (98-107); Creatinine (Component) 2.2 mg/dL (0.6-1.3); Estimated Creatinine Clearance 40.2 mL/min (>60); Globulin 3.4 gm/dL (2.3-3.5); Glucose 135 mg/dL (74-106); Magnesium 2.1 mg/dL (1.6-2.6); Osmolality,Calculated 311 (275-295); Phenytoin (Dilantin) 6.3 mcg/mL; Phosphorous 4.2 mg/dL (2.4-5.1); Potassium 3.8 mMol/L (3.4-5.1); Sodium 149 mMol/L (136-145); Total Protein 6.7 gm/dL (5.7-8.2); eGFR 38 See Note
[2025-04-21 08:44] LABS: Base Excess 2 (-3-3); HCO3 27 mEq/L (20-26); Inspired Oxygen, FIO2 50 %; O2 Saturation 98 % (91-98); PCO2 44 mmHg (32.0-48.0); PO2 91 mmHg (83-108); pH, Arterial 7.40 (7.35-7.45)
[2025-04-21 08:53] LABS: Allen Test Not Performed; Puncture Site Left Radial
[2025-04-21] MEDS: POLYETHYLENE GLYCOL 17 GM PACKET GT (09:59)
[2025-04-21] MEDS: APIXABAN 2.5 MG TABLET 5 MG GT ×2 (09:59→20:45)
[2025-04-21] MEDS: LANSOPRAZOLE 30 MG TAB.RAP.DR GT (09:59)
[2025-04-21] MEDS: MEROPENEM INJ 1,000 MG in SODIUM CHLORIDE 0.9% (Popper) 50 ML 100 MG IV (09:59)
[2025-04-21] MEDS: levETIRAcetam LIQD 500 MG/5 ML UDC 1000 MG GT ×2 (10:00→20:46)
[2025-04-21] MEDS: PHENYTOIN 100 MG/4 ML UDC 600 MG GT ×2 (10:00→20:46)
[2025-04-21] MEDS: FLUDROCORTISONE ACETATE 0.1 MG TABLET GT (10:00)
[2025-04-21] MEDS: Artificial Tears 225 DROP/15 ML BTL BOTH EYES ×2 (10:01→20:45)
[2025-04-21] MEDS: SOD HYPOCHLORITE 1/4 STR 473 ML BTL IRRIG ×2 (10:01→20:46)
--- NOTE | 2025-04-21 10:01 | ESCONSULT_ITS ---
<Statement entered by Leydi Rojas MD - 04/22/25 08:19> TOTAL TIME: 45MINUTES ON DIRECT MEDICAL CARE, MANAGEMENT - COORDINATION AND COUNSELING > 50% OF TOTAL TIME I saw and evaluated the patient. I reviewed the resident?s note and agree with findings and plan as documented in the resident?s note. Please perform a workup for tachycardia and tachypnea Mechanical ventilator dynamics appear appropriate at the time of our evaluation No adjustments in settings required and not likely the cause of the patient's new tachypnea and tachycardia Please reconsult for any ICU level of care requirements. HPI Data of Consult Patient: new to practice Consult date: 04/21/25 Requesting Physician: Nuris Norris DO Admitting Provider: Bryant Best MD Attending Provider: Leydi Rojas MD Primary Care Provider: Physician No Primary/Family Consult Narrative Reason for consult: Mechanical ventilator Adjustment History of present illness: Mr. Smith is a 39-year-old male with past medical history of 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, status post tracheostomy, mechanical ventilation, PEG tube, suprapubic catheter, right nephrostomy tube due to obstructive uropathy and bilateral upper extremity DVT who presented to [facility] from [facility] on April 13, 2025 with a chief complaint of fever, was found to have bibasilar and right middle lobe pneumonia and patient was admitted to the hospital for further workup. With the progression of hospitalization patient noted to be tachycardic and tachypneic, there is suspicion of phenytoin toxicity, dose adjusted by primary team. Otherwise patient completed treatment for possible healthcare associated pneumonia on meropenem, ET tube culture from 04/14 did show ESBL sensitive to meropenem. Patient's constipation/suspected ileus resolved, patient had bowel movement yesterday evening patient's ELDON, hypernatremia improved with the progression of hospital course. 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 Pulmonology consulted for elevated peak pressures at time and underlying tachypnea. 04/21/2025: Patient seen and examined at bedside, patient is nonverbal unable to provide history. Discussed with patient's nurse extensively, per nurse patient has elevated peak pressures and tachypnea when patient is moved, patient is tachycardic throughout the whole exam, heart rate sustaining in 150s. Patient's FiO2 50%, down trended to 40, maintain sats greater than 92. Otherwise patient's peak pressures were not elevated at bedside, reviewed mechanical ventilation log patient does have elevated peak pressure noted every 1-2 hours briefly, could be attributed to underlying pain secondary to wounds versus worsening respiratory distress in setting of pneumonia. Patient is on baclofen 5 mg G-tube 3 times daily, Ativan 0.5 GT every 6 hours as needed for anxiety. Noted to have fever, tachycardia and tachypnea earlier this afternoon, will consider sepsis workup with repeating lactate otherwise patient's blood pressure has been stable though he is on scheduled midodrine and fludrocortisone. 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 moist mucus membrane. EOMI, clear conjunctiva, oropharynx clear. NECK: Supple without lymphadenopathy. No stiffness or restricted ROM. HEART: sinus tacycardia with regular rhythm, normal S1/S2, no m/r/g LUNGS: Bilateral minimal crackles noted ABDOMEN: Soft, nontender, nondistended, voluntary guarding. PEG tube EXTREMITIES: Without cyanosis, clubbing or edema. 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 Results Labs 04/22/25 04:45 04/22/25 04:45 Labs: Short CBC 04/21/25 Range/Units 04:55 WBC 23.6 H D (3.8-10.6) Thou/mm3 Hgb 8.2 L (13.5-16.0) g/dL Hct 27.1 L (41.0-53.0) % Plt Count 342 D (140-440) Thou/mm3 BMP 04/21/25 04:55 Sodium 149 H Potassium 3.8 Chloride 109 H Carbon Dioxide 25.5 BUN 50 H Creatinine 2.2 H Glucose 135 H Calcium 8.5 Liver Function 04/21/25 Range/Units 04:55 Total Bilirubin 0.2 L (0.3-1.2) mg/dL AST 85 H (0-34) U/L ALT 86 H (10-49) U/L Alkaline Phosphatase 589 H (46-116) U/L Albumin 3.3 L D (3.5-5.0) gm/dL ABG Interpretation ABG results: 04/15/25 04/19/25 04/21/25 10:20 07:08 08:36 ABG pH 7.32 L 7.42 7.40 ABG pCO2 49 H 39 44 ABG pO2 120 H 71 L 91 D ABG HCO3 25 26 27 H ABG O2 Saturation 99 H 96 98 ABG Base Excess -1 1 2 Quality Measures Quality Measures VTE prophylaxis (Eliquis 5 mg twice daily) Medications Home Medications and Allergies Home Medications ?Medication ?Instructions ?Recorded ?Confirmed ?Type Fludrocortisone 0.1 mg GT DAILY 04/15/2511/07 History Non Formulary Medication 250 ea G-tube TID 04/15/25 0 04/13/25 History acetaminophen 325 mg tablet 325 mg G-tube Q6HR PRN Jan n 04/15/25 04/13/25 History albuterol sulfate 2.5 mg/3 mL 2.5 mg INH Q6HRRT PRN SO B or 04/15/25 04/13/25 History (0.083 %) solution for nebulization wheezing artificial 1 drp Both eyes BID 04/15/25 04/13/25 History tears([id number]-[id number]) 0.1 %-0.3 %-0.2 % eye drops (GenTeal Tears Moderate) baclofen 10 mg tablet 5 mg G-tube TID 04/15/2511/07 History bisacodyl 10 mg rectal suppository 10 mg TN PRN PRN No BM Per Bowel 04/15/25 04/13/25 History (Dulcolax (bisacodyl)) Management Protocol carbamide peroxide 6.5 % ear drops 5 drp otic (ear) Q6 1D 04/15/25 04/13/25 History (Ear Wax Removal Drops) ipratropium 0.5 mg-albuterol 3 mg 3 ml INH Q6HRRT 01/0504/13/25 History (2.5 mg base)/3 mL nebulization soln levetiracetam 100 mg/mL oral 1,000 mg G-tube BID 04/1504/13/25 History solution lorazepam 0.5 mg tablet 0.5 mg G-tube Q6HR PRN anxie ty 04/15/25 04/13/25 History lorazepam 2 mg/mL injection 2 mg IM [id number] PRN Seizur e 04/15/25 04/13/25 History solution Activity magnesium hydroxide 400 mg/5 mL 30 ml G-tube PRN PRN C onstipation 04/15/25 04/13/25 History oral suspension (Milk of Magnesia) metoclopramide HCl 5 mg tablet 5 mg G-tube TID 5 04/13/25 History midodrine 10 mg tablet 10 mg G-tube TID 04/15/25 History spnzsymeneqp-kvikwhhs-xqnj 1 ea G-tube QDAY 04/15/25 0 04/13/25 History fumarate 7.5 mg-folic acid 400 mcg tablet pantoprazole 40 mg granules 40 mg G-tube QDAY 04/15/25 04/13/25 History delayed-release for susp in packet polyethylene glycol 3350 17 gram 17 g G-tube PRN PRN N o BM Per 04/15/25 04/13/25 History oral powder packet Bowel Management Protocol sodium chloride 0.9 % (flush) 5 ml IVP Q8HR 04/15/25 0 04/13/25 History (Normal Saline Flush 0.9 % injection syringe) sodium phosphates 19 gram-7 133 ml TN PRN PRN No BM Pe r Bowel 04/15/25 04/13/25 History gram/118 mL enema (Fleet Enema) Management Protocol Allergies Allergy/AdvReac Type Severity Reaction Status Date / Time No Known Allergies Allergy Verified 01/11/25 11:40 Visit Medications Acetaminophen (Acetaminophen Lala 325 Mg/10 Ml Udc) 325 mg GT Q4HR PRN PRN Reason: Pain 1-3 Or Fever > 101 Stop: 05/13/25 21:44 Last Admin: 04/18/25 13:31 Dose: 325 mg Albuterol/Ipratropium (Albuterol/Ipratropium (Duoneb) Rt Lala 3 Ml Nebu) 3 ml INH Q2HR PRN PRN Reason: SHORTNESS OF BREATH OR WHEEZE Stop: 05/18/25 09:52 Last Admin: 04/20/25 12:49 Dose: 3 ml Apixaban (Apixaban 2.5 Mg Tablet) 5 mg GT BID [facility] Stop: 05/05/25 08:59 Last Admin: 04/20/25 21:25 Dose: 5 mg Artificial Tears (Artificial Tears 225 Drop/15 Ml Btl) 1 drop BOTH EYES BID [facility] Stop: 05/14/25 08:59 Last Admin: 04/20/25 21:25 Dose: 1 drop Baclofen (Baclofen 10 Mg Tablet) 5 mg GT TID [facility] Stop: 05/13/25 21:59 Last Admin: 04/21/25 05:31 Dose: 5 mg Bisacodyl (Bisacodyl 10 Mg Supp) 10 mg TN Q72H PRN; Protocol PRN Reason: CONSTIPATION Stop: 05/19/25 08:10 Carbamide Peroxide (Carbamide Peroxide Otic Lala 15 Ml Btl) 5 drop BOTH EARS Q61D [facility] Stop: 05/13/25 21:59 Last Admin: 04/13/25 23:38 Dose: 5 drops Collagenase (Collagenase Oint 30 Gm Tube) 0 gm TOP HS [facility] Stop: 05/14/25 20:59 Last Admin: 04/20/25 21:25 Dose: 1 applicatio Fludrocortisone Acetate (Fludrocortisone Acetate 0.1 Mg Tablet) 0.1 mg GT DAILY [facility] Stop: 05/14/25 08:59 Last Admin: 04/20/25 08:35 Dose: 0.1 mg Guaifenesin (Guaifenesin Syrup 200 Mg/10 Ml Udc) 200 mg GT QID PRN; Protocol PRN Reason: thickened sputum/COUGH Stop: 05/18/25 10:31 Last Admin: 04/20/25 07:31 Dose: 200 mg Meropenem 1,000 mg/ Sodium (Chloride) 50 mls @ 100 mls/hr IV Q12HR KIT Stop: 04/21/25 20:59 Last Admin: 04/20/25 21:26 Dose: 100 mls/hr Dextrose (D5w) 1,000 mls @ 60 mls/hr IV .[id number] KIT Stop: 04/22/25 00:54 Lansoprazole (Lansoprazole 30 Mg Tab.Rap.) 30 mg GT QDAY [facility] Stop: 05/14/25 08:59 Last Admin: 04/20/25 08:36 Dose: 30 mg Levetiracetam (Levetiracetam Liqd 500 Mg/5 Ml Udc) 1,000 mg GT BID KIT Stop: 05/13/25 21:59 Last Admin: 04/20/25 21:26 Dose: 1,000 mg Lorazepam (Lorazepam 0.5 Mg Tablet) 0.5 mg GT Q6HR PRN PRN Reason: anxiety Stop: 04/24/25 14:56 Last Admin: 04/20/25 07:27 Dose: 0.5 mg Midodrine (Midodrine 5 Mg Tablet) 10 mg GT TID KIT Stop: 05/13/25 22:44 Last Admin: 04/21/25 05:27 Dose: 10 mg Ondansetron HCl (Ondansetron Inj 2 Mg/Ml Inj 2 Ml) 4 mg IVP Q6H PRN; Protocol PRN Reason: NAUSEA OR VOMITING Stop: 05/13/25 21:41 Phenytoin (Phenytoin 100 Mg/4 Ml Udc) 600 mg GT BID [facility] Stop: 05/19/25 20:59 Last Admin: 04/20/25 21:26 Dose: 600 mg Polyethylene Glycol (Polyethylene Glycol 17 Gm Packet) 17 gm GT QDAY KIT Stop: 05/19/25 10:29 Last Admin: 04/20/25 08:36 Dose: 17 gm Sodium Chloride (Sodium Chloride 0.9% Flush 10 Ml Syringe) 5 ml IVP Q8HR KIT Stop: 05/13/25 21:59 Last Admin: 04/21/25 05:27 Dose: 5 ml Sodium Hypochlorite (Sod Hypochlorite 1/4 Str 473 Ml Btl) 473 ml IRRIG BID KIT Stop: 05/14/25 20:59 Last Admin: 04/20/25 21:27 Dose: 1 applicatio Sodium Phosphate (Sodium Phos,Harmon-Dibasic 133 Ml (Fleet) Enema Btl) 133 ml RC PRN PRN; Protocol PRN Reason: No BM Per Bowel Management Protocol Discontinued Medications Bisacodyl (Bisacodyl 10 Mg Supp) 10 mg TN PRN PRN; Protocol PRN Reason: No BM Per Bowel Management Protocol Stop: 05/19/25 08:10 Heparin Sodium (Porcine) (Heparin Sod Inj 5000 Unit/Ml Vial) 5,000 unit SC Q12HR KIT Stop: 04/28/25 08:59 Sodium Chloride (Ns) 1,000 mls @ 999 mls/hr IV .Q1H1M ONE Stop: 04/13/25 17:18 Last Infusion: 04/13/25 17:42 Dose: Infused Piperacillin Sod/Tazobactam (Sod 4.5 gm/ Sodium Chloride) 100 mls @ 200 mls/hr IV X1 ONE Stop: 04/13/25 22:29 Last Infusion: 04/13/25 22:40 Dose: Infused Vancomycin/Sodium Chloride (Vancomycin/Ns 1 Gm Ivpb) 200 mls @ 120 mls/hr IV X1 ONE Stop: 04/13/25 23:39 Last Infusion: 04/14/25 00:30 Dose: Infused Vancomycin HCl (Vancomycin/Water 1250 Mg Ivpb) 250 mls @ 120 mls/hr IV Q24H [facility] Stop: 04/21/25 21:59 Last Infusion: 04/15/25 00:38 Dose: Infused Piperacillin/Tazobactam/Dextrose (Zosyn) 3.375 gm in 50 mls @ 12.5 mls/hr IV Q8HR KIT Stop: 04/21/25 07:14 Last Admin: 04/14/25 08:03 Dose: 12.5 mls/hr Lactated Ringer's (Lactated Ringers) 1,000 mls @ 100 mls/hr IV .Q10H [facility] Stop: 05/14/25 10:13 Last Admin: 04/16/25 06:06 Dose: 100 mls/hr Vancomycin/Sodium Chloride (Vancomycin/Ns 1 Gm Ivpb) 200 mls @ 120 mls/hr IV Q24H KIT; Protocol Stop: 04/22/25 21:59 Last Admin: 04/17/25 00:12 Dose: Not Given Lactated Ringer's (Lactated Ringers) 1,000 mls @ 120 mls/hr IV .Q8H20M [facility] Stop: 05/16/25 08:30 Last Admin: 04/16/25 09:04 Dose: 120 mls/hr Dextrose (D5w) 1,000 mls @ 100 mls/hr IV .Q10H [facility] Stop: 05/16/25 10:44 Last Admin: 04/16/25 12:34 Dose: 100 mls/hr Dextrose (D5w) 1,000 mls @ 120 mls/hr IV .Q8H20M [facility] Stop: 05/16/25 18:25 Last Admin: 04/18/25 00:27 Dose: 120 mls/hr Dextrose (D5w) 1,000 mls @ 60 mls/hr IV .[id number] [facility] Stop: 05/18/25 08:15 Last Admin: 04/19/25 02:38 Dose: 60 mls/hr Lactated Ringer's (Lactated Ringers) 1,000 mls @ 70 mls/hr IV .[id number] [facility] Stop: 04/20/25 21:55 Last Admin: 04/20/25 08:36 Dose: 70 mls/hr Lactated Ringer's (Lactated Ringers) 1,000 mls @ 999 mls/hr IV .Q1H1M ONE Stop: 04/20/25 16:32 Last Admin: 04/20/25 15:53 Dose: 999 mls/hr Lorazepam (Lorazepam 2 Mg/Ml Vial) 2 mg IVP X1 ONE Stop: 04/13/25 17:32 Last Admin: 04/13/25 17:41 Dose: 2 mg Lorazepam (Lorazepam 2 Mg/Ml Vial) 2 mg IVP Q30M PRN PRN Reason: Breakthrough Seizure Stop: 04/18/25 21:50 Lorazepam (Lorazepam 2 Mg/Ml Vial) 2 mg IVP X1 ONE Stop: 04/19/25 14:58 Last Admin: 04/19/25 15:15 Dose: 2 mg Lorazepam (Lorazepam 2 Mg/Ml Vial) 1 mg IVP X1 ONE Stop: 04/20/25 12:41 Last Admin: 04/20/25 12:45 Dose: 1 mg Morphine Sulfate (Morphine Sulf Inj 10 Mg/Ml Vial) 2 mg IVP X1 ONE Stop: 04/19/25 06:10 Last Admin: 04/19/25 06:11 Dose: 2 mg Morphine Sulfate (Morphine Sulf Inj 10 Mg/Ml Vial) 1 mg IVP X1 ONE Stop: 04/19/25 14:03 Last Admin: 04/19/25 14:06 Dose: 1 mg Morphine Sulfate (Morphine Sulf Inj 10 Mg/Ml Vial) 2 mg IVP X1 ONE Stop: 04/20/25 16:54 Last Admin: 04/20/25 17:44 Dose: 2 mg Non-Formulary Medication (Pantoprazole) 40 mg GT QDAY KIT Stop: 05/14/25 08:59 Pantoprazole Sodium (Pantoprazole Inj 40 Mg Vial) 40 mg IVP QDAY KIT Stop: 05/14/25 08:59 Last Admin: 04/15/25 08:13 Dose: 40 mg Pharmacy Consult (Vancomycin Pharmacy To Dose 1 Each Each) 1 each IV QDAY PRN PRN Reason: RX Stop: 05/14/25 08:59 Sodium Chloride (Sodium Chloride 0.9% Flush 10 Ml Syringe) 5 ml IVP Q8HR KIT Stop: 05/13/25 21:59 Last Admin: 04/14/25 13:59 Dose: 5 ml Sodium Chloride (Sodium Chloride Rt 10% 15 Ml Nebu) 5 ml INH X1 ONE Stop: 04/14/25 00:21 Last Admin: 04/14/25 01:46 Dose: Not Given Assessment & Plan Plan Summary: Mr. Smith is a 39-year-old male with past medical history of 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, status post tracheostomy, mechanical ventilation, PEG tube, suprapubic catheter, right nephrostomy tube due to obstructive uropathy and bilateral upper extremity DVT who presented to [facility] from subacute on April 13, 2025 with a chief complaint of fever, was found to have bibasilar and right middle lobe pneumonia and patient was admitted to the hospital for further workup. Pulmonology consulted for tachycardia tachypnea and mechanical ventilation management #Mechanical ventilation management #Acute on chronic respiratory failure #Pneumonia #Tachypnea Patient tachycardic and tachypneic, has elevated peak pressures on mechanical ventilation at times. Pulmonology consulted for recommendations, patient likely has underlying source of sepsis other than pneumonia, has extensive wounds, stage IV sacral ulcer. Patient did have constipation/ileus which resolved yesterday, ELDON is improving, clinically MAP greater than 65 at all times. Patient does have a new fever consider repeating sepsis workup. Low suspicion of mucous plug for now, patient did have thick copious secretions. Chest x-ray reads bilateral lower lung pneumonia, patient did receive treatment on meropenem. -Adjusted FiO2 to 40%, patient satting more than 92 -Repeat cultures considering patient has new onset fevers -Consider sepsis workup, consider repeating lactate and Pro-Chuck. -Will continue to follow, consider ICU upgrade if patient becomes significantly hypotensive -Consider challenging with fluids if needed, no history of heart failure -Continue IV meropenem, considering broadening antibiotic coverage #Phenytoin toxicity #Hx of seizure, patient history #Anoxic brain injury post cardiac arrest in chronic vegetative state #Constipation, suspected ileus #ELDON on CKD Stage 3B #Hyperosmolar hypernatremia and hyperchloremia #Hx Obstructive uropathy with neurogenic bladder with Rt nephrostomy tube+ suprapubic cath #Decubitus ulcer #History Osteomyelitis #History of bilateral upper extremity DVT #History of factor V Leyden deficiency #Anemia of chronic disease #Adrenal insufficiency, suspected - Management as per primary team Case discussed with Attending Dr. Rojas. Ulisses Chambers PGY2 Disclaimer: This note was dictated by speech recognition. Minor errors in concrete floor installer may be present due to voice recognition software.
--- NOTE | 2025-04-21 10:32 | XR_ITS ---
Examination: Abdomen AP single view Technique: AP portable supine abdomen, single view Exam date and time: April 21, 2025 1103 hours INDICATIONS: Abdominal pain today. FINDINGS: Mildly air distended stomach with gastrostomy tube overlying the stomach Right nephrostomy drainage tubes satisfactory position Abundant stool throughout the colon especially rectosigmoid IMPRESSION: Abundant stool throughout the colon especially rectosigmoid
--- NOTE | 2025-04-21 10:32 | XR_ITS ---
Examination: AP chest single view TECHNIQUE: AP portable semiupright chest single view Date and time: April 21, 2025 1108 hours Comparison April 19, 2025 INDICATIONS: Tachypnea today. FINDINGS: Minor prominence left ventricle Pneumonia both lung bases Right internal jugular central line tip SVC No pneumothorax Tracheostomy tube tip 7.4 cm above dudley Moderate vascular congestion IMPRESSION: Bibasilar pneumonia Moderate vascular congestion
--- NOTE | 2025-04-21 12:05 | PC.SS ---
SS follow up note; Patient has been tachycardia, patient will discharge back to [facility] when medically cleared.
[2025-04-21] MEDS: ACETAMINOPHEN SOL 325 MG/10 ML UDC GT (12:55)
--- NOTE | 2025-04-21 14:11 | PD.RESPRO ---
Documentation for date of: 04/21/25 Subjective Subjective Interval history: Overnight events: No acute events overnight. Patient was seen and examined at bedside. AM vitals and labs reviewed. BUN 50, Cr 2.2, and GFR 38. WBC increased to 23.6 from 15.1. Continuing meropenem for ESBL Proteus. Ins/outs 2450/2750. A.m. sodium noted to be 149 which prompted concern for diabetes insipidus as this patient had elevated sodium for several days during his current hospital stay. However, since urine output is below 4 L, we will hold off on treating with desmopressin as it may instead be post ATN diuresis. Today the patient continued to be nonverbal and unresponsive. Patient would periodically open eyes and then closes them, reacts slightly to noise, but has no purposeful movement. Trach tube is still in place with copious secretions. PEEP 5.0 and FiO2 50%. Review of systems otherwise negative except for what is mentioned above. Exam Vital Signs Temp Pulse Resp BP Pulse Ox O2 Del Method O2 Flow Rate 101.2 F H 119 H 43 H 116/75 99 Mechanical Ventilation 4 04/21/25 12:55 04/21/25 13:00 04/21/25 12:00 04/21/25 12:00 04/21/25 13:00 04/21/25 12:00 04/21/25 12:00 FiO2 50 04/21/25 13:00 Narrative Exam Physical Exam: General: Alert, no acute distress. Skin: Warm, dry, intact, no obvious rash. Head: Normocephalic, atraumatic. Eye: Normal conjunctiva, PERRL. Cardiovascular: Unable to appreciate heart sounds over lung sounds. Respiratory: Respirations unlabored, crackles heard on expiration. Extremities: No edema, no cyanosis, no clubbing. 2+ radial pulse bilaterally, 2+ pedall pulse bilaterally. Objective Labs 04/24/25 05:51 04/24/25 05:51 Labs: Laboratory Results - last 24 hr 04/21/25 04/21/25 04:55 08:36 WBC 23.6 H D RBC 2.93 L Hgb 8.2 L Hct 27.1 L MCV 93 MCH 28.0 MCHC 30.3 L RDW Std Deviation 50.9 H Plt Count 342 D Neut % (Auto) 75 Lymph % (Auto) 8 L [place] % (Auto) 5 Eos % (Auto) 10 Baso % (Auto) 0 Neut # (Auto) 17.8 H Lymph # (Auto) 2.0 [place] # (Auto) 1.2 H Eos # (Auto) 2.4 H Baso # (Auto) 0.1 Immature Gran # (Auto) 0.19 H Absolute Nucleated RBC 0.00 Immature Gran % 1 H Nucleated RBC % 0 Puncture Site Left Radial ABG pH 7.40 ABG pCO2 44 ABG pO2 91 D ABG HCO3 27 H ABG O2 Saturation 98 ABG Base Excess 2 FiO2 50 Sodium 149 H Potassium 3.8 Chloride 109 H Carbon Dioxide 25.5 Anion Gap 15 BUN 50 H Creatinine 2.2 H Estim Creat Clear Calc 40.2 L eGFR 38 L BUN/Creatinine Ratio 23 H Glucose 135 H Calculated Osmolality 311 H Calcium 8.5 Corrected Calcium 9.1 Phosphorus 4.2 Magnesium 2.1 Total Bilirubin 0.2 L AST 85 H ALT 86 H Alkaline Phosphatase 589 H Total Protein 6.7 Albumin 3.3 L D Globulin 3.4 Albumin/Globulin Ratio 1.0 L Phenytoin 6.3 ABG Interpretation ABG results: 04/15/25 04/19/25 04/21/25 10:20 07:08 08:36 ABG pH 7.32 L 7.42 7.40 ABG pCO2 49 H 39 44 ABG pO2 120 H 71 L 91 D ABG HCO3 25 26 27 H ABG O2 Saturation 99 H 96 98 ABG Base Excess -1 1 2 Quality Measures Quality Measures VTE prophylaxis (Eliquis 5 mg twice daily) Assessment & Plan Assessment Current Active Medications: Generic Name Dose Route Start Last Admin Trade Name Freq PRN Reason Stop Dose Admin Acetaminophen 325 mg 04/13/25 21:45 04/21/25 12:55 Acetaminophen Lala 325 Mg/10 Ml Udc GT 05/13/25 21:44 325 mg Q4HR PRN Administration Pain 1-3 Or Fever > 101 Albuterol/Ipratropium 3 ml 04/18/25 09:53 04/20/25 12:49 Albuterol/Ipratropium (Duoneb) Rt Lala 3 Ml Nebu INH 05/18/25 09:52 3 ml Q2HR PRN Administration SHORTNESS OF BREATH OR WHEEZE Apixaban 5 mg 04/14/25 09:00 04/21/25 09:59 Apixaban 2.5 Mg Tablet GT 05/05/25 08:59 5 mg BID KIT Administration Artificial Tears 1 drop 04/14/25 09:00 04/21/25 10:01 Artificial Tears 225 Drop/15 Ml Btl BOTH EYES 05/14/25 08:59 1 drop BID KIT Administration Baclofen 5 mg 04/13/25 22:00 04/21/25 05:31 Baclofen 10 Mg Tablet GT 05/13/25 21:59 5 mg TID KIT Administration Bisacodyl 10 mg 04/19/25 14:32 Bisacodyl 10 Mg Supp UT 05/19/25 08:10 Q72H PRN CONSTIPATION Protocol Carbamide Peroxide 5 drop 04/13/25 22:00 04/13/25 23:38 Carbamide Peroxide Otic Lala 15 Ml Btl BOTH EARS 05/13/25 21:59 5 drops Q61D KIT Administration Collagenase 0 gm 04/14/25 21:00 04/20/25 21:25 Collagenase Oint 30 Gm Tube TOP 05/14/25 20:59 1 applicatio HS KIT Administration Fludrocortisone Acetate 0.1 mg 04/14/25 09:00 04/21/25 10:00 Fludrocortisone Acetate 0.1 Mg Tablet GT 05/14/25 08:59 0.1 mg DAILY KIT Administration Guaifenesin 200 mg 04/18/25 10:32 04/20/25 07:31 Guaifenesin Syrup 200 Mg/10 Ml Udc GT 05/18/25 10:31 200 mg QID PRN Administration thickened sputum/COUGH Protocol Meropenem 1,000 mg/ Sodium 50 mls @ 100 mls/hr 04/14/25 21:00 04/21/25 10:29 Chloride IV 04/21/25 20:59 Infused Q12HR KIT Infusion Dextrose 1,000 mls @ 60 mls/hr 04/21/25 08:15 D5w IV 04/22/25 00:54 .[id number] KIT Lansoprazole 30 mg 04/16/25 09:00 04/21/25 09:59 Lansoprazole 30 Mg Tab.Nancy. GT 05/14/25 08:59 30 mg QDAY KIT Administration Levetiracetam 1,000 mg 04/13/25 22:00 04/21/25 10:00 Levetiracetam Liqd 500 Mg/5 Ml Udc GT 05/13/25 21:59 1,000 mg BID KIT Administration Lorazepam 0.5 mg 04/19/25 14:57 04/20/25 07:27 Lorazepam 0.5 Mg Tablet GT 04/24/25 14:56 0.5 mg Q6HR PRN Administration anxiety Midodrine 10 mg 04/13/25 22:45 04/21/25 05:27 Midodrine 5 Mg Tablet GT 05/13/25 22:44 10 mg TID KIT Administration Ondansetron HCl 4 mg 04/13/25 21:42 Ondansetron Inj 2 Mg/Ml Inj 2 Ml IVP 05/13/25 21:41 Q6H PRN NAUSEA OR VOMITING Protocol Phenytoin 600 mg 04/19/25 21:00 04/21/25 10:00 Phenytoin 100 Mg/4 Ml Udc GT 05/19/25 20:59 600 mg BID KIT Administration Polyethylene Glycol 17 gm 04/19/25 10:30 04/21/25 09:59 Polyethylene Glycol 17 Gm Packet GT 05/19/25 10:29 17 gm QDAY KIT Administration Sodium Chloride 5 ml 04/14/25 14:01 04/21/25 05:27 Sodium Chloride 0.9% Flush 10 Ml Syringe IVP 05/13/25 21:59 5 ml Q8HR KIT Administration Sodium Hypochlorite 473 ml 04/14/25 21:00 04/21/25 10:01 Sod Hypochlorite 1/4 Str 473 Ml Btl IRRIG 05/14/25 20:59 1 applicatio BID KIT Administration Sodium Phosphate 133 ml 04/19/25 08:11 Sodium Phos,[place]-Dibasic 133 Ml (Fleet) Enema Btl RC PRN PRN No BM Per Bowel Management Protocol Protocol Plan Mr. Smith is a 39 year old male with a relevant medical history of anoxic brain injury, s/p tracheotomy, mechanical ventilation, and right nephrostomy tube for obstructive uropathy, who presented with a fever. The patient was admitted for use of IV antibiotics in suspicion of ventilator associated pneumonia. Nephrology was consulted due to concerns of ELDON on CKD IV. #ELDON on CKD IIIB #Obstructive uropathy Patient was admitted with BUN of 102, Cr 3.4, and eGFR of 22. Given the patient's prior history of obstructive uropathy, ELDON may be due to ATN 2/2 drops in BP as recorded in EMR prior to admission to [facility]. - Renal function lab values improving over time. - Renally adjust medications. - IV fluid resuscitation as tolerated. - Nephrology will continue to follow #Hypernatremia #Suspected post ATN diuresis Patient was admitted with elevated sodium level of 154. Sodium continued to be elevated but improved with IV hydration. Serum sodium decreased to within normal limits on 04/18/25. Sodium re-elevated on 04/21/25 to 149. Urine output throughout hospital stay ranges from 1400mL to 4700mL, with only 2 days of urine >4L. Currently suspecting post ATN diuresis, a condition where there is marked diuresis during the recovery from damage to the kidneys as it is thought that the recovering renal tubules are less efficient at reabsorbing fluids. Diabetes insipidus can present similarly, but it will have a consistent urine output >4L. - Will hold off on desmopressin for now. - Recommend urine sodium, urine osmolality, and plasma osmolality if concern for diabetes insipidus persists. - Urine osmolality sent out on 04/15/25, results still pending. - Urine sodium 04/15 within normal limits, expected to be low in diabetes insipidus. - Recommend D5W to decrease serum sodium. - IV fluid hydration recommended. Patient was discussed with the Nephrology attending, Dr. Duran. Thank you for allowing us to participate in the care of this patient. Salazar Smalls, PGY-1 Attending Provider Attestation/Addendum Agree with assessment and plan and finding of resident. Kevin Duran MD
--- NOTE | 2025-04-21 16:40 | ESPR_ITS ---
Documentation for date of: 04/21/25 Subjective Subjective Interval history: No overnight events. Pateint seen and examined at bedside. Does not appear to be in pain. Remains tachycardic, tachypneic, new fever this afternoon. Repeat blood cultures, sputum culture ordered. 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 dry mucus membrane. EOMI, clear conjunctiva, oropharynx clear. NECK: Supple without lymphadenopathy. No stiffness or restricted ROM. HEART: sinus tachycardia with regular rhythm, normal S1/S2, no m/r/g LUNGS: coarse rhonchi with copious thick secretions. Tachypnea. ABDOMEN: Soft, nontender, nondistended with good bowel sounds heard. PEG tube EXTREMITIES: Without cyanosis, clubbing or edema. 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 No discoloration/rashes/edema/amputations. +Pedal pulses present B/L. Objective Labs 04/22/25 04:45 04/22/25 04:45 Labs: Laboratory Results - last 24 hr 04/21/25 04/21/25 04:55 08:36 WBC 23.6 H D RBC 2.93 L Hgb 8.2 L Hct 27.1 L MCV 93 MCH 28.0 MCHC 30.3 L RDW Std Deviation 50.9 H Plt Count 342 D Neut % (Auto) 75 Lymph % (Auto) 8 L [place] % (Auto) 5 Eos % (Auto) 10 Baso % (Auto) 0 Neut # (Auto) 17.8 H Lymph # (Auto) 2.0 [place] # (Auto) 1.2 H Eos # (Auto) 2.4 H Baso # (Auto) 0.1 Immature Gran # (Auto) 0.19 H Absolute Nucleated RBC 0.00 Immature Gran % 1 H Nucleated RBC % 0 Puncture Site Left Radial ABG pH 7.40 ABG pCO2 44 ABG pO2 91 D ABG HCO3 27 H ABG O2 Saturation 98 ABG Base Excess 2 FiO2 50 Sodium 149 H Potassium 3.8 Chloride 109 H Carbon Dioxide 25.5 Anion Gap 15 BUN 50 H Creatinine 2.2 H Estim Creat Clear Calc 40.2 L eGFR 38 L BUN/Creatinine Ratio 23 H Glucose 135 H Calculated Osmolality 311 H Calcium 8.5 Corrected Calcium 9.1 Phosphorus 4.2 Magnesium 2.1 Total Bilirubin 0.2 L AST 85 H ALT 86 H Alkaline Phosphatase 589 H Total Protein 6.7 Albumin 3.3 L D Globulin 3.4 Albumin/Globulin Ratio 1.0 L Phenytoin 6.3 ABG Interpretation ABG results: 04/15/25 04/19/25 04/21/25 10:20 07:08 08:36 ABG pH 7.32 L 7.42 7.40 ABG pCO2 49 H 39 44 ABG pO2 120 H 71 L 91 D ABG HCO3 25 26 27 H ABG O2 Saturation 99 H 96 98 ABG Base Excess -1 1 2 Quality Measures Quality Measures VTE prophylaxis (Eliquis 5 mg twice daily) Assessment & Plan Assessment Current Active Medications: Generic Name Dose Route Start Last Admin Trade Name Freq PRN Reason Stop Dose Admin Acetaminophen 325 mg 04/13/25 21:45 04/21/25 12:55 Acetaminophen Lala 325 Mg/10 Ml Udc GT 05/13/25 21:44 325 mg Q4HR PRN Administration Pain 1-3 Or Fever > 101 Albuterol/Ipratropium 3 ml 04/18/25 09:53 04/20/25 12:49 Albuterol/Ipratropium (Duoneb) Rt Lala 3 Ml Nebu INH 05/18/25 09:52 3 ml Q2HR PRN Administration SHORTNESS OF BREATH OR WHEEZE Apixaban 5 mg 04/14/25 09:00 04/21/25 09:59 Apixaban 2.5 Mg Tablet GT 05/05/25 08:59 5 mg BID KIT Administration Artificial Tears 1 drop 04/14/25 09:00 04/21/25 10:01 Artificial Tears 225 Drop/15 Ml Btl BOTH EYES 05/14/25 08:59 1 drop BID KIT Administration Baclofen 5 mg 04/13/25 22:00 04/21/25 14:50 Baclofen 10 Mg Tablet GT 05/13/25 21:59 5 mg TID KIT Administration Bisacodyl 10 mg 04/19/25 14:32 Bisacodyl 10 Mg Supp SD 05/19/25 08:10 Q72H PRN CONSTIPATION Protocol Carbamide Peroxide 5 drop 04/13/25 22:00 04/13/25 23:38 Carbamide Peroxide Otic Lala 15 Ml Btl BOTH EARS 05/13/25 21:59 5 drops Q61D KIT Administration Collagenase 0 gm 04/14/25 21:00 04/20/25 21:25 Collagenase Oint 30 Gm Tube TOP 05/14/25 20:59 1 applicatio HS KIT Administration Fludrocortisone Acetate 0.1 mg 04/14/25 09:00 04/21/25 10:00 Fludrocortisone Acetate 0.1 Mg Tablet 05/14/25 08:59 0.1 mg DAILY KIT Administration Guaifenesin 200 mg 04/18/25 10:32 04/20/25 07:31 Guaifenesin Syrup 200 Mg/10 Ml Udc 05/18/25 10:31 200 mg QID PRN Administration thickened sputum/COUGH Protocol Meropenem 1,000 mg/ Sodium 50 mls @ 100 mls/hr 04/14/25 21:00 04/21/25 10:29 Chloride IV 04/21/25 20:59 Infused Q12HR KIT Infusion Dextrose 1,000 mls @ 60 mls/hr 04/21/25 08:15 D5w IV 04/22/25 00:54 .[id number] KIT Lansoprazole 30 mg 04/16/25 09:00 04/21/25 09:59 Lansoprazole 30 Mg Tab.Rap. GT 05/14/25 08:59 30 mg QDAY KIT Administration Levetiracetam 1,000 mg 04/13/25 22:00 04/21/25 10:00 Levetiracetam Liqd 500 Mg/5 Ml Udc 05/13/25 21:59 1,000 mg BID KIT Administration Lorazepam 0.5 mg 04/19/25 14:57 04/20/25 07:27 Lorazepam 0.5 Mg Tablet GT 04/24/25 14:56 0.5 mg Q6HR PRN Administration anxiety Midodrine 10 mg 04/13/25 22:45 04/21/25 14:50 Midodrine 5 Mg Tablet GT 05/13/25 22:44 10 mg TID KIT Administration Ondansetron HCl 4 mg 04/13/25 21:42 Ondansetron Inj 2 Mg/Ml Inj 2 Ml IVP 05/13/25 21:41 Q6H PRN NAUSEA OR VOMITING Protocol Phenytoin 600 mg 04/19/25 21:00 04/21/25 10:00 Phenytoin 100 Mg/4 Ml Udc GT 05/19/25 20:59 600 mg BID KIT Administration Polyethylene Glycol 17 gm 04/19/25 10:30 04/21/25 09:59 Polyethylene Glycol 17 Gm Packet GT 05/19/25 10:29 17 gm QDAY KIT Administration Sodium Chloride 5 ml 04/14/25 14:01 04/21/25 14:16 Sodium Chloride 0.9% Flush 10 Ml Syringe IVP 05/13/25 21:59 5 ml Q8HR KIT Administration Sodium Hypochlorite 473 ml 04/14/25 21:00 04/21/25 10:01 Sod Hypochlorite 1/4 Str 473 Ml Btl IRRIG 05/14/25 20:59 1 applicatio BID KIT Administration Sodium Phosphate 133 ml 04/19/25 08:11 Sodium Phos,[place]-Dibasic 133 Ml (Fleet) Enema Btl RC PRN PRN No BM Per Bowel Management Protocol Protocol Plan This 39-year-old male with a past medical history of 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, status post tracheostomy, mechanical ventilation, PEG tube, suprapubic catheter, right nephrostomy tube due to obstructive uropathy, and bilateral upper extremity DVT, presented to [facility] from in- house subacute for fever will be admitted for IV antibiotics for treatment of ventilator associated pneumonia. #Acute on chronic hypoxic resp failure on mech vent #Ventilator associated pneumonia #New onset fever Patient presenting with fevers noted at subacute facility, trach and PEG and high risk for aspiration secondary to being ventilated In the ED, patient has leukocytosis, elevated Pro-Chuck Chest x-ray shows bibasilar and right middle lobe pneumonia Urinalysis does show signs of infection with positive nitrites, leukocyte Esterase and +1 bacteria, suprapubic catheter Sputum culture growing ESBL Proteus mirabilis sensitive to meropenem. Blood cultures showing no growth. Urine cultures showed no growth. Patient has a chronic history of recurring pneumonia Patient had new fever with WBC elevation, reordered sputum/blood cultures, extended meropenum Plan: Continue meropenem (04/14-) Gave vancomycin x1, will evaluate tomorrow Frequent suctioning and chest PT Monitor for fever spikes Robitussin, DuoNebs as needed Follow up blood and sputum cultures Followu up lactate and procal #Phenytoin toxicity likely due to ?medication dosage pb #Hx of seizure, patient history #Anoxic brain injury post cardiac arrest in chronic vegetative state Phenytoin level elevated >40. Poison control was contacted and recommended to ask lab if a more specific measurement can be done to get a better idea of the blood levels. They also recommended to monitor for respiratory depression, coma, seizures, rash Patient history as stated. Patient is nonverbal at baseline and is a&o x0. Phenytoin reached therapeutic range, confirmed with poison control safe to resume at provider discretion. Plan: Continue with home medications Phenytoin 600mg GT BID Monitoring with EKG, BMP and phenytoin levels daily #Constipation, suspected ileus Patient had rapid response due to tachypnea, was found to have abdominal distention and tenderness, given morphine and KUB ordered. KUB showed significant stool burden despite patient having regular bowel movements. Patient had multiple BMs with improvement in abdominal distention and tenderness. Plan: As needed Fleet enemas Scheduled MiraLAX Monitor for bowel movements Ativan as needed ordered for agitation/anxiety GLycerine suppository x1 #ELDON on CKD Stage 3B #Hyperosmolar hypernatremia and hyperchloremia #Hx Obstructive uropathy with neurogenic bladder with Rt nephrostomy tube+ suprapubic cath -Related to phenytoin toxicity vs Medications Patient has a nephrostomy tube (placed at [facility]) as well as suprapubic catheter Patient had elevated creatinine of 3.2 which is above his baseline of around 1.6. Was Given 1L bolus in ED. Sodium elevated at 154 possibly due to hx of obstructive uropathy in setting of pneumonia vs a low volume picture. Retroperitoneal ultrasound showed bilateral hydronephrosis. Urologist said that no acute intervention required at this point. Sodium improved 149. Creatinine improved to 1.7. Patient is making adequate urine. Sodium improved to 143, reduced IVF and free water flushes. Plan: Nephrology consulted, appreciate recommendations Free water flushes to 300cc every 3 hours, will continue to monitor Renally dose medications Avoid nephrotoxic agents D5W at 60 ml/hr #Decubitus ulcer #History Osteomyelitis History of sacral wound culture grew ESBL Proteus on 01/08/2025 sensitive to Augmentin in the past Plan: Wound culture grew Proteus, continue meropenem 1,000 mg IV Q12 hr (04/14-04/21) Wound care referral #History of bilateral upper extremity DVT #History of factor V Leyden deficiency Patient with history of bilateral upper extremity DVT history of factor V Leyden deficiency, was swtiched to Eliquis 5mg GT BID on last discharge Plan: Continue Eliquis 5 mg GT bid #Anemia of chronic disease Patient's hemoglobin was 7.9 No signs of active bleeding. Plan: Continue to monitor #Adrenal insufficiency, suspected Patient takes 0.1 mg fludrocortisone at twice daily at home, suspect due to history of adrenal sufficiency although not clearly documented. Would explain patient's significant hypotension and continued soft blood pressure. Plan: Continuing home med: Fludrocortisone 0.1 mg GT daily Health management: Diet: Jevity Tube Feeds with water flushes DVT ppx: Eliquis 5 mg GT BID GI ppx: Protonix Lines: PIV, suprapubic catheter, right-sided nephrostomy tube, trach Code status: DNR Patient was seen and discussed with attending physician Dr Norris. James Crespo MD PGY-2 Attending Provider Attestation/Addendum Serena, Nuris Norris DO, attest that I was physically present for the purdy portions of the service and evaluated the patient with the resident and I reviewed and discussed the case with the resident and agree with the resident's findings and plans of care as documented above Patient seen eval this a.m. He appears more calm this morning. He remains tachycardic. Leukocytosis noted patient had a fever overnight. Chest x-ray showsBibasilar pneumonia and moderate vascular congestion. Abdominal x-ray also shows abundant stool throughout the colon. Gallbladder ultrasound showed mild hepatic megaly with fatty infiltration, no focal liver lesions. Due to will culture sputum and blood due to fevers. Continue with IV antibiotics at this time. Pulmonology consulted for further recommendations for vent management due to patient's agitation at times which is the likely cause of his leukocytosis as well. Patient does not appear to be in any acute distress.
[2025-04-21] MEDS: GLYCERIN, ADULT 1 EA SUPP 1 EACH PR (17:43)
[2025-04-21] MEDS: VANCOMYCIN/NS 1 GM IVPB 200 ML IV (19:22)
[2025-04-21 19:38] LABS: Lactate (Lactic Acid) 1.2 mMol/L (0.4-2.0)
[2025-04-21 20:31] LABS: Procalcitonin 0.81 ng/ml (0.0-0.49)
[2025-04-21] MEDS: COLLAGENASE OINT 30 GM TUBE TOP (20:46)
[2025-04-22] VITALS (15 sets, daily range): BP systolic 101–128; BP diastolic 54–80; PULSE 100–119; RESP 19–36; TEMP 36–36.8; O2SAT 97–99; BMI 27.0
[2025-04-22 02:21] LABS: Influenza A Ag Negative; Influenza B Ag Negative; Respiratory Syncytial Virus Ag Negative (Negative)
[2025-04-22] MEDS: BACLOFEN 10 MG TABLET 5 MG GT ×3 (05:16→21:44)
[2025-04-22] MEDS: MIDODRINE 5 MG TABLET 10 MG GT ×3 (05:16→23:14)
[2025-04-22 06:02] LABS: Basophils # (Auto) 0.1 Thou/mm3 (0.0-0.2); Basophils % (Auto) 0 % (0-2.5); Eosinophils # (Auto) 3.5 Thou/mm3 (0.0-0.5); Eosinophils % (Auto) 17 % (0-10); Hematocrit 24.0 % (41.0-53.0); Immature Granulocytes Auto 0.12 Thou/mm3 (0.00-0.00); Lymphocytes # (Auto) 1.9 Thou/mm3 (1.0-4.8); Lymphocytes % (Auto) 9 % (10-50); Mean Corpuscular HGB Conc 31.3 g/dl (31.0-37.0); Mean Corpuscular Hemoglobin 28.3 pg (25.0-35.0); Mean Corpuscular Volume 91 fL (80-100); Monocytes # (Auto) 1.2 Thou/mm3 (0.0-0.8); Monocytes % (Auto) 6 % (0-12); Neutrophils # (Auto) 13.7 Thou/mm3 (1.8-7.7); Neutrophils % (Auto) 67 % (37-80); Nucleated Red Blood Cell # 0.00 Thou/mm3 (0.00-0.00); Nucleated Red Blood Cell % 0 /100 WBC (0); Platelet Count 358 Thou/mm3 (140-440); RDW Standard Deviation 52.3 fL (35.1-43.9); Red Blood Count 2.65 Miln/mm3 (4.50-5.90); White Blood Count 20.6 Thou/mm3 (3.8-10.6)
[2025-04-22 06:03] LABS: Hemoglobin 7.5 g/dL (13.5-16.0)
[2025-04-22 06:23] LABS: Alanine Aminotransferase 60 U/L (10-49); Albumin, Serum 3.3 gm/dL (3.5-5.0); Albumin/Globulin Ratio 1.0 (1.2-2.2); Alkaline Phosphatase 477 U/L (46-116); Anion Gap 11 (7-16); Aspartate Amino Transferase 36 U/L (0-34); BUN/Creatinine Ratio 24 Ratio (12-20); Bilirubin,Total 0.2 mg/dL (0.3-1.2); Blood Urea Nitrogen 48 mg/dL (9-23); Calcium 8.4 mg/dL (8.3-10.6); Calcium (Corrected) 9.0 mg/dL (8.5-10.1); Carbon Dioxide 26.1 mMol/L (20.0-31.0); Chloride 109 mMol/L (98-107); Creatinine (Component) 2.0 mg/dL (0.6-1.3); Estimated Creatinine Clearance 44.2 mL/min (>60); Globulin 3.4 gm/dL (2.3-3.5); Glucose 146 mg/dL (74-106); Magnesium 2.0 mg/dL (1.6-2.6); Osmolality,Calculated 306 (275-295); Phenytoin (Dilantin) 6.4 mcg/mL; Phosphorous 3.8 mg/dL (2.4-5.1); Potassium 3.8 mMol/L (3.4-5.1); Sodium 146 mMol/L (136-145); Total Protein 6.7 gm/dL (5.7-8.2); eGFR 42 See Note
[2025-04-22] MEDS: PHENYTOIN 100 MG/4 ML UDC 600 MG GT ×2 (09:05→21:53)
[2025-04-22] MEDS: POLYETHYLENE GLYCOL 17 GM PACKET GT (09:06)
[2025-04-22] MEDS: APIXABAN 2.5 MG TABLET 5 MG GT ×2 (09:06→21:43)
[2025-04-22] MEDS: FLUDROCORTISONE ACETATE 0.1 MG TABLET GT (09:06)
[2025-04-22] MEDS: LANSOPRAZOLE 30 MG TAB.RAP.DR GT (09:06)
[2025-04-22] MEDS: levETIRAcetam LIQD 500 MG/5 ML UDC 1000 MG GT ×2 (09:06→21:44)
[2025-04-22] MEDS: DEXTROSE 5%-WATER 500 ML 75 ML IV (09:10)
[2025-04-22] MEDS: Artificial Tears 225 DROP/15 ML BTL BOTH EYES ×2 (09:10→21:47)
--- NOTE | 2025-04-22 09:53 | ESPR_ITS ---
Documentation for date of: 04/22/25 Subjective Subjective Interval history: Overnight events: No acute events overnight. Patient was seen and examined at bedside. AM vitals and labs reviewed. Patient continues to be on D5W. BUN 48, creatinine 2.0, GFR 42. WBC decreased from 23.6 to 20.6 today. Sodium has decreased from 149 to 146. Ins/outs 2438/3780. During today's visit patient continued to be nonverbal and nonresponsive. Trach tube in place with mechanical ventilation setting at PEEP 5.0 and FiO2 40%. Thick secretions noted on trach tube. Review of systems otherwise negative except for what is mentioned above. Exam Vital Signs Temp Pulse Resp BP Pulse Ox O2 Del Method O2 Flow Rate 97.8 F 103 H 19 128/80 99 Mechanical Ventilation 4 04/22/25 08:00 04/22/25 08:00 04/22/25 08:00 04/22/25 08:00 04/22/25 08:00 04/22/25 08:00 04/22/25 08:00 FiO2 50 04/22/25 08:00 Narrative Exam Physical Exam: General: No acute distress. Skin: Warm, dry, intact, no obvious rash. Head: Normocephalic, atraumatic. Eye: Normal conjunctiva, PERRL. Cardiovascular: Regular rate and rhythm, no murmur, +S1/S2. Respiratory: Respirations unlabored. Soft inspiratory wheeze and expiratory crackles noted throughout lung ordonez. Extremities: No edema, no cyanosis, no clubbing. 2+ radial pulse bilaterally, 2+ posterior tibial pulse bilaterally. Objective Labs 04/24/25 05:51 04/24/25 05:51 Labs: Laboratory Results - last 24 hr 04/21/25 04/21/25 04/22/25 19:30 22:11 04:45 WBC 20.6 H RBC 2.65 L Hgb 7.5 L Hct 24.0 L MCV 91 MCH 28.3 MCHC 31.3 RDW Std Deviation 52.3 H Plt Count 358 Neut % (Auto) 67 Lymph % (Auto) 9 L Oliver % (Auto) 6 Eos % (Auto) 17 H Baso % (Auto) 0 Neut # (Auto) 13.7 H Lymph # (Auto) 1.9 Oliver # (Auto) 1.2 H Eos # (Auto) 3.5 H Baso # (Auto) 0.1 Immature Gran # (Auto) 0.12 H Absolute Nucleated RBC 0.00 Immature Gran % 1 H Nucleated RBC % 0 Sodium 146 H Potassium 3.8 Chloride 109 H Carbon Dioxide 26.1 Anion Gap 11 BUN 48 H Creatinine 2.0 H Estim Creat Clear Calc 44.2 L eGFR 42 L BUN/Creatinine Ratio 24 H Glucose 146 H Calculated Osmolality 306 H Lactic Acid 1.2 Calcium 8.4 Corrected Calcium 9.0 Phosphorus 3.8 Magnesium 2.0 Total Bilirubin 0.2 L AST 36 H ALT 60 H Alkaline Phosphatase 477 H D Total Protein 6.7 Albumin 3.3 L Globulin 3.4 Albumin/Globulin Ratio 1.0 L Procalcitonin 0.81 H Phenytoin 6.4 Influenza A (Rapid) Negative Influenza B (Rapid) Negative RSV Rapid Negative ABG Interpretation ABG results: 04/15/25 04/19/25 04/21/25 10:20 07:08 08:36 ABG pH 7.32 L 7.42 7.40 ABG pCO2 49 H 39 44 ABG pO2 120 H 71 L 91 D ABG HCO3 25 26 27 H ABG O2 Saturation 99 H 96 98 ABG Base Excess -1 1 2 Quality Measures Quality Measures VTE prophylaxis (Eliquis 5 mg twice daily) Assessment & Plan Assessment Current Active Medications: Generic Name Dose Route Start Last Admin Trade Name Freq PRN Reason Stop Dose Admin Acetaminophen 325 mg 04/13/25 21:45 04/21/25 12:55 Acetaminophen Lala 325 Mg/10 Ml Udc GT 05/13/25 21:44 325 mg Q4HR PRN Administration Pain 1-3 Or Fever > 101 Albuterol/Ipratropium 3 ml 04/18/25 09:53 04/20/25 12:49 Albuterol/Ipratropium (Duoneb) Rt Lala 3 Ml Nebu INH 05/18/25 09:52 3 ml Q2HR PRN Administration SHORTNESS OF BREATH OR WHEEZE Apixaban 5 mg 04/14/25 09:00 04/22/25 09:06 Apixaban 2.5 Mg Tablet GT 05/05/25 08:59 5 mg BID KIT Administration Artificial Tears 1 drop 04/14/25 09:00 04/22/25 09:10 Artificial Tears 225 Drop/15 Ml Btl BOTH EYES 05/14/25 08:59 1 drop BID KIT Administration Baclofen 5 mg 04/13/25 22:00 04/22/25 05:16 Baclofen 10 Mg Tablet GT 05/13/25 21:59 5 mg TID KIT Administration Bisacodyl 10 mg 04/19/25 14:32 Bisacodyl 10 Mg Supp AK 05/19/25 08:10 Q72H PRN CONSTIPATION Protocol Carbamide Peroxide 5 drop 04/13/25 22:00 04/13/25 23:38 Carbamide Peroxide Otic Lala 15 Ml Btl BOTH EARS 05/13/25 21:59 5 drops Q61D KIT Administration Collagenase 0 gm 04/14/25 21:00 04/21/25 20:46 Collagenase Oint 30 Gm Tube TOP 05/14/25 20:59 1 applicatio HS KIT Administration Fludrocortisone Acetate 0.1 mg 04/14/25 09:00 04/22/25 09:06 Fludrocortisone Acetate 0.1 Mg Tablet GT 05/14/25 08:59 0.1 mg DAILY KIT Administration Guaifenesin 200 mg 04/18/25 10:32 04/20/25 07:31 Guaifenesin Syrup 200 Mg/10 Ml Udc GT 05/18/25 10:31 200 mg QID PRN Administration thickened sputum/COUGH Protocol Dextrose 500 mls @ 75 mls/hr 04/22/25 08:15 04/22/25 09:10 D5w IV 04/22/25 14:54 75 mls/hr .Q6H40M KIT Administration Lansoprazole 30 mg 04/16/25 09:00 04/22/25 09:06 Lansoprazole 30 Mg Tab.Rap. GT 05/14/25 08:59 30 mg QDAY KIT Administration Levetiracetam 1,000 mg 04/13/25 22:00 04/22/25 09:06 Levetiracetam Liqd 500 Mg/5 Ml Udc GT 05/13/25 21:59 1,000 mg BID KIT Administration Lorazepam 0.5 mg 04/19/25 14:57 04/20/25 07:27 Lorazepam 0.5 Mg Tablet GT 04/24/25 14:56 0.5 mg Q6HR PRN Administration anxiety Midodrine 10 mg 04/13/25 22:45 04/22/25 05:16 Midodrine 5 Mg Tablet GT 05/13/25 22:44 10 mg TID KIT Administration Ondansetron HCl 4 mg 04/13/25 21:42 Ondansetron Inj 2 Mg/Ml Inj 2 Ml IVP 05/13/25 21:41 Q6H PRN NAUSEA OR VOMITING Protocol Phenytoin 600 mg 04/19/25 21:00 04/22/25 09:05 Phenytoin 100 Mg/4 Ml Udc GT 05/19/25 20:59 600 mg BID KIT Administration Polyethylene Glycol 17 gm 04/19/25 10:30 04/22/25 09:06 Polyethylene Glycol 17 Gm Packet GT 05/19/25 10:29 17 gm QDAY KIT Administration Sodium Chloride 5 ml 04/14/25 14:01 04/22/25 05:17 Sodium Chloride 0.9% Flush 10 Ml Syringe IVP 05/13/25 21:59 5 ml Q8HR KIT Administration Sodium Hypochlorite 473 ml 04/14/25 21:00 04/21/25 20:46 Sod Hypochlorite 1/4 Str 473 Ml Btl IRRIG 05/14/25 20:59 1 applicatio BID KIT Administration Sodium Phosphate 133 ml 04/19/25 08:11 Sodium Phos,Oliver-Dibasic 133 Ml (Fleet) Enema Btl RC PRN PRN No BM Per Bowel Management Protocol Protocol Plan Mr. Smith is a 39 year old male with a relevant medical history of anoxic brain injury, s/p tracheotomy, mechanical ventilation, and right nephrostomy tube for obstructive uropathy, who presented with a fever. The patient was admitted for use of IV antibiotics in suspicion of ventilator associated pneumonia. Nephrology was consulted due to concerns of ELDON on CKD IV. #ELDON on CKD IIIB #Obstructive uropathy Patient was admitted with BUN of 102, Cr 3.4, and eGFR of 22. Given the patient's prior history of obstructive uropathy, ELDON may be due to ATN 2/2 drops in BP as recorded in EMR prior to admission to [facility]. - Renal function lab values improving over time. - Renally adjust medications. - IV fluid resuscitation as tolerated. - Nephrology will continue to follow #Hypernatremia #Suspected post ATN diuresis Patient was admitted with elevated sodium level of 154. Sodium continued to be elevated but improved with IV hydration. Serum sodium decreased to within normal limits on 04/18/25. Sodium re-elevated on 04/21/25 to 149. Urine output throughout hospital stay ranges from 1400mL to 4700mL, with only 2 days of urine >4L. Currently suspecting post ATN diuresis, a condition where there is marked diuresis during the recovery from damage to the kidneys as it is thought that the recovering renal tubules are less efficient at reabsorbing fluids. Diabetes insipidus can present similarly, but it will have a consistent urine output >4L, low urine sodium, low urine osmolality, and high plasma osmolality. - Will hold off on desmopressin for now. - Recommend urine sodium, urine osmolality, and plasma osmolality if concern for diabetes insipidus persists. - Urine osmolality sent out on 04/15/25, results still pending. - Urine sodium 04/15 within normal limits, expected to be low in diabetes insipidus. - Continue D5W to decrease serum sodium. - Continue 300mL flush Q3hrs with tube feeds for adequate hydration. Patient was discussed with the Nephrology attending, Dr. Duran. Thank you for allowing us to participate in the care of this patient. Salazar Smalls, PGY-1 Attending Provider Attestation/Addendum Agree with assessment and plan and finding of resident. Kevin Duran MD
--- NOTE | 2025-04-22 10:29 | ESPR_ITS ---
<Statement entered by Leydi Rojas MD - 04/23/25 08:10> TOTAL TIME: 45MINUTES ON DIRECT MEDICAL CARE, MANAGEMENT - COORDINATION AND COUNSELING > 50% OF TOTAL TIME I saw and evaluated the patient. I reviewed the resident?s note and agree with findings and plan as documented in the resident?s note. fever noted in absence of clear new infiltrate (note that plain view in patient cxr has very poor sensitivty), given worsening leukocytosis it seems likely that pt has new infx RTI is usually most common in these cases consider avycaz and further ID w/u. monitor for sepsis - track lactic acid as appropriate Documentation for date of: 04/22/25 Subjective Subjective Interval history: Mr. Smith is a 39-year-old male with past medical history of 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, status post tracheostomy, mechanical ventilation, PEG tube, suprapubic catheter, right nephrostomy tube due to obstructive uropathy and bilateral upper extremity DVT who presented to [facility] from [facility] on April 13, 2025 with a chief complaint of fever, was found to have bibasilar and right middle lobe pneumonia and patient was admitted to the hospital for further workup. With the progression of hospitalization patient noted to be tachycardic and tachypneic, there is suspicion of phenytoin toxicity, dose adjusted by primary team. Otherwise patient completed treatment for possible healthcare associated pneumonia on meropenem, ET tube culture from 04/14 did show ESBL sensitive to meropenem. Patient's constipation/suspected ileus resolved, patient had bowel movement yesterday evening patient's ELDON, hypernatremia improved with the progression of hospital course. 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 Pulmonology consulted for elevated peak pressures at time and underlying tachypnea. 04/21/2025: Patient seen and examined at bedside, patient is nonverbal unable to provide history. Discussed with patient's nurse extensively, per nurse patient has elevated peak pressures and tachypnea when patient is moved, patient is tachycardic throughout the whole exam, heart rate sustaining in 150s. Patient's FiO2 50%, down trended to 40, maintain sats greater than 92. Otherwise patient's peak pressures were not elevated at bedside, reviewed mechanical ventilation log patient does have elevated peak pressure noted every 1-2 hours briefly, could be attributed to underlying pain secondary to wounds versus worsening respiratory distress in setting of pneumonia. Patient is on baclofen 5 mg G-tube 3 times daily, Ativan 0.5 GT every 6 hours as needed for anxiety. Noted to have fever, tachycardia and tachypnea earlier this afternoon, will consider sepsis workup with repeating lactate otherwise patient's blood pressure has been stable though he is on scheduled midodrine and fludrocortisone. 04/22/2025: Patient had fever yesterday, continues to remain tachycardic and tachypneic, has elevated peak pressures secondary to underlying infection, lactate negative Pro-Chuck down trended compared to admission though continues to remain elevated, review of chart shows that on 03/30 patient has Pseudomonas aeruginosa which was zavala resistant on sputum cultures, we will recommend starting patient on Avycaz and an infectious disease consult if patient is clinically not improving and remains septic. Otherwise repeat sputum culture and blood cultures remain pending, optimize therapy as needed. 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 moist mucus membrane. EOMI, clear conjunctiva, oropharynx clear. NECK: Supple without lymphadenopathy. No stiffness or restricted ROM. HEART: sinus tacycardia with regular rhythm, normal S1/S2, no m/r/g LUNGS: Bilateral minimal crackles noted ABDOMEN: Soft, nontender, nondistended, voluntary guarding. PEG tube EXTREMITIES: Without cyanosis, clubbing or edema. 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 Objective Labs 04/22/25 04:45 04/22/25 04:45 Labs: Laboratory Results - last 24 hr 04/21/25 04/21/25 04/22/25 19:30 22:11 04:45 WBC 20.6 H RBC 2.65 L Hgb 7.5 L Hct 24.0 L MCV 91 MCH 28.3 MCHC 31.3 RDW Std Deviation 52.3 H Plt Count 358 Neut % (Auto) 67 Lymph % (Auto) 9 L Garrard % (Auto) 6 Eos % (Auto) 17 H Baso % (Auto) 0 Neut # (Auto) 13.7 H Lymph # (Auto) 1.9 Garrard # (Auto) 1.2 H Eos # (Auto) 3.5 H Baso # (Auto) 0.1 Immature Gran # (Auto) 0.12 H Absolute Nucleated RBC 0.00 Immature Gran % 1 H Nucleated RBC % 0 Sodium 146 H Potassium 3.8 Chloride 109 H Carbon Dioxide 26.1 Anion Gap 11 BUN 48 H Creatinine 2.0 H Estim Creat Clear Calc 44.2 L eGFR 42 L BUN/Creatinine Ratio 24 H Glucose 146 H Calculated Osmolality 306 H Lactic Acid 1.2 Calcium 8.4 Corrected Calcium 9.0 Phosphorus 3.8 Magnesium 2.0 Total Bilirubin 0.2 L AST 36 H ALT 60 H Alkaline Phosphatase 477 H D Total Protein 6.7 Albumin 3.3 L Globulin 3.4 Albumin/Globulin Ratio 1.0 L Procalcitonin 0.81 H Phenytoin 6.4 Influenza A (Rapid) Negative Influenza B (Rapid) Negative RSV Rapid Negative ABG Interpretation ABG results: 04/15/25 04/19/25 04/21/25 10:20 07:08 08:36 ABG pH 7.32 L 7.42 7.40 ABG pCO2 49 H 39 44 ABG pO2 120 H 71 L 91 D ABG HCO3 25 26 27 H ABG O2 Saturation 99 H 96 98 ABG Base Excess -1 1 2 Quality Measures Quality Measures VTE prophylaxis (Eliquis 5 mg twice daily) Assessment & Plan Assessment Current Active Medications: Generic Name Dose Route Start Last Admin Trade Name Freq PRN Reason Stop Dose Admin Acetaminophen 325 mg 04/13/25 21:45 04/21/25 12:55 Acetaminophen Lala 325 Mg/10 Ml Udc GT 05/13/25 21:44 325 mg Q4HR PRN Administration Pain 1-3 Or Fever > 101 Albuterol/Ipratropium 3 ml 04/18/25 09:53 04/20/25 12:49 Albuterol/Ipratropium (Duoneb) Rt Lala 3 Ml Nebu INH 05/18/25 09:52 3 ml Q2HR PRN Administration SHORTNESS OF BREATH OR WHEEZE Apixaban 5 mg 04/14/25 09:00 04/22/25 09:06 Apixaban 2.5 Mg Tablet GT 05/05/25 08:59 5 mg BID KIT Administration Artificial Tears 1 drop 04/14/25 09:00 04/22/25 09:10 Artificial Tears 225 Drop/15 Ml Btl BOTH EYES 05/14/25 08:59 1 drop BID KIT Administration Baclofen 5 mg 04/13/25 22:00 04/22/25 05:16 Baclofen 10 Mg Tablet GT 05/13/25 21:59 5 mg TID KIT Administration Bisacodyl 10 mg 04/19/25 14:32 Bisacodyl 10 Mg Supp MD 05/19/25 08:10 Q72H PRN CONSTIPATION Protocol Carbamide Peroxide 5 drop 04/13/25 22:00 04/13/25 23:38 Carbamide Peroxide Otic Lala 15 Ml Btl BOTH EARS 05/13/25 21:59 5 drops Q61D KIT Administration Collagenase 0 gm 04/14/25 21:00 04/21/25 20:46 Collagenase Oint 30 Gm Tube TOP 05/14/25 20:59 1 applicatio HS KIT Administration Fludrocortisone Acetate 0.1 mg 04/14/25 09:00 04/22/25 09:06 Fludrocortisone Acetate 0.1 Mg Tablet GT 05/14/25 08:59 0.1 mg DAILY KIT Administration Guaifenesin 200 mg 04/18/25 10:32 04/20/25 07:31 Guaifenesin Syrup 200 Mg/10 Ml Udc GT 05/18/25 10:31 200 mg QID PRN Administration thickened sputum/COUGH Protocol Dextrose 500 mls @ 75 mls/hr 04/22/25 08:15 04/22/25 09:10 D5w IV 04/22/25 14:54 75 mls/hr .Q6H40M KIT Administration Ceftazidime 2 gm/ Sodium 50 mls @ 100 mls/hr 04/22/25 21:00 Chloride IV 04/29/25 20:59 Q12HR KIT Lansoprazole 30 mg 04/16/25 09:00 04/22/25 09:06 Lansoprazole 30 Mg Tab.Rap. GT 05/14/25 08:59 30 mg QDAY KIT Administration Levetiracetam 1,000 mg 04/13/25 22:00 04/22/25 09:06 Levetiracetam Liqd 500 Mg/5 Ml Ud GT 05/13/25 21:59 1,000 mg BID KIT Administration Lorazepam 0.5 mg 04/19/25 14:57 04/20/25 07:27 Lorazepam 0.5 Mg Tablet GT 04/24/25 14:56 0.5 mg Q6HR PRN Administration anxiety Midodrine 10 mg 04/13/25 22:45 04/22/25 05:16 Midodrine 5 Mg Tablet GT 05/13/25 22:44 10 mg TID KIT Administration Ondansetron HCl 4 mg 04/13/25 21:42 Ondansetron Inj 2 Mg/Ml Inj 2 Ml IVP 05/13/25 21:41 Q6H PRN NAUSEA OR VOMITING Protocol Phenytoin 600 mg 04/19/25 21:00 04/22/25 09:05 Phenytoin 100 Mg/4 Ml Udc GT 05/19/25 20:59 600 mg BID KIT Administration Polyethylene Glycol 17 gm 04/19/25 10:30 04/22/25 09:06 Polyethylene Glycol 17 Gm Packet GT 05/19/25 10:29 17 gm QDAY KIT Administration Sodium Chloride 5 ml 04/14/25 14:01 04/22/25 05:17 Sodium Chloride 0.9% Flush 10 Ml Syringe IVP 05/13/25 21:59 5 ml Q8HR KIT Administration Sodium Hypochlorite 473 ml 04/14/25 21:00 04/21/25 20:46 Sod Hypochlorite 1/4 Str 473 Ml Btl IRRIG 05/14/25 20:59 1 applicatio BID KIT Administration Sodium Phosphate 133 ml 04/19/25 08:11 Sodium Phos,Garrard-Dibasic 133 Ml (Fleet) Enema Btl RC PRN PRN No BM Per Bowel Management Protocol Protocol Plan Summary: Mr. Smith is a 39-year-old male with past medical history of 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, status post tracheostomy, mechanical ventilation, PEG tube, suprapubic catheter, right nephrostomy tube due to obstructive uropathy and bilateral upper extremity DVT who presented to [facility] from subacute on April 13, 2025 with a chief complaint of fever, was found to have bibasilar and right middle lobe pneumonia and patient was admitted to the hospital for further workup. Pulmonology consulted for tachycardia tachypnea and mechanical ventilation management #Mechanical ventilation management #Acute on chronic respiratory failure #Pneumonia #Tachypnea Patient tachycardic and tachypneic, has elevated peak pressures on mechanical ventilation at times. Pulmonology consulted for recommendations, patient likely has underlying source of sepsis other than pneumonia, has extensive wounds, stage IV sacral ulcer. Patient did have constipation/ileus which resolved yesterday, ELDON is improving, clinically MAP greater than 65 at all times. Patient does have a new fever consider repeating sepsis workup. Low suspicion of mucous plug for now, patient did have thick copious secretions. Chest x-ray reads bilateral lower lung pneumonia, patient did receive treatment on meropenem. -Patient has history of Pseudomonas resistant to meropenem on a culture from March, we recommend switching to Avycaz -Recommend infectious disease consult. -Follow repeat cultures considering patient has new onset fevers -Will continue to follow, consider ICU upgrade if patient becomes significantly hypotensive/unstable #Phenytoin toxicity #Hx of seizure, patient history #Anoxic brain injury post cardiac arrest in chronic vegetative state #Constipation, suspected ileus #ELDON on CKD Stage 3B #Hyperosmolar hypernatremia and hyperchloremia #Hx Obstructive uropathy with neurogenic bladder with Rt nephrostomy tube+ suprapubic cath #Decubitus ulcer #History Osteomyelitis #History of bilateral upper extremity DVT #History of factor V Leyden deficiency #Anemia of chronic disease #Adrenal insufficiency, suspected - Management as per primary team Case discussed with Attending Dr. Rojas. Ulisses Chambers PGY2 Disclaimer: This note was dictated by speech recognition. Minor errors in caterpillar driver may be present due to voice recognition software.
[2025-04-22 12:22] LABS: Cocci Serology, IgM Negative (Negative)
[2025-04-22] MEDS: AVIBACTAM IV ×2 (12:24→21:43)
[2025-04-22] MEDS: CEFTAZIDIME IV ×2 (12:24→21:43)
[2025-04-22] MEDS: SODIUM CHLORIDE 0.9% IV ×2 (12:24→21:43)
[2025-04-22] MEDS: SOD HYPOCHLORITE 1/4 STR 473 ML BTL IRRIG ×2 (12:25→21:53)
--- NOTE | 2025-04-22 14:09 | PD.RESPRO ---
Documentation for date of: 04/22/25 Subjective Subjective Interval history: No overnight events. Patient seen and examined at bedside, appears to be comfortable. Respirations 24, heart rate 102, improved from previous days. Antibiotics changed to Avycaz for broader coverage based on previous cultures. Pending repeat cultures. 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 dry mucus membrane. EOMI, clear conjunctiva, oropharynx clear. NECK: Supple without lymphadenopathy. No stiffness or restricted ROM. HEART: sinus tachycardia with regular rhythm, normal S1/S2, no m/r/g LUNGS: coarse rhonchi with copious thick secretions. Tachypnea. ABDOMEN: Soft, nontender, nondistended with good bowel sounds heard. PEG tube EXTREMITIES: Without cyanosis, clubbing or edema. 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 No discoloration/rashes/edema/amputations. +Pedal pulses present B/L. Objective Labs 04/22/25 04:45 04/22/25 04:45 Labs: Laboratory Results - last 24 hr 04/21/25 04/21/25 04/22/25 19:30 22:11 04:45 WBC 20.6 H RBC 2.65 L Hgb 7.5 L Hct 24.0 L MCV 91 MCH 28.3 MCHC 31.3 RDW Std Deviation 52.3 H Plt Count 358 Neut % (Auto) 67 Lymph % (Auto) 9 L [place] % (Auto) 6 Eos % (Auto) 17 H Baso % (Auto) 0 Neut # (Auto) 13.7 H Lymph # (Auto) 1.9 [place] # (Auto) 1.2 H Eos # (Auto) 3.5 H Baso # (Auto) 0.1 Immature Gran # (Auto) 0.12 H Absolute Nucleated RBC 0.00 Immature Gran % 1 H Nucleated RBC % 0 Sodium 146 H Potassium 3.8 Chloride 109 H Carbon Dioxide 26.1 Anion Gap 11 BUN 48 H Creatinine 2.0 H Estim Creat Clear Calc 44.2 L eGFR 42 L BUN/Creatinine Ratio 24 H Glucose 146 H Calculated Osmolality 306 H Lactic Acid 1.2 Calcium 8.4 Corrected Calcium 9.0 Phosphorus 3.8 Magnesium 2.0 Total Bilirubin 0.2 L AST 36 H ALT 60 H Alkaline Phosphatase 477 H D Total Protein 6.7 Albumin 3.3 L Globulin 3.4 Albumin/Globulin Ratio 1.0 L Procalcitonin 0.81 H Phenytoin 6.4 Coccidioides IgM Ab Negative Influenza A (Rapid) Negative Influenza B (Rapid) Negative RSV Rapid Negative ABG Interpretation ABG results: 04/15/25 04/19/25 04/21/25 10:20 07:08 08:36 ABG pH 7.32 L 7.42 7.40 ABG pCO2 49 H 39 44 ABG pO2 120 H 71 L 91 D ABG HCO3 25 26 27 H ABG O2 Saturation 99 H 96 98 ABG Base Excess -1 1 2 Quality Measures Quality Measures VTE prophylaxis (Eliquis 5 mg twice daily) Assessment & Plan Assessment Current Active Medications: Generic Name Dose Route Start Last Admin Trade Name Freq PRN Reason Stop Dose Admin Acetaminophen 325 mg 04/13/25 21:45 04/21/25 12:55 Acetaminophen Lala 325 Mg/10 Ml Udc GT 05/13/25 21:44 325 mg Q4HR PRN Administration Pain 1-3 Or Fever > 101 Albuterol/Ipratropium 3 ml 04/18/25 09:53 04/20/25 12:49 Albuterol/Ipratropium (Duoneb) Rt Lala 3 Ml Nebu INH 05/18/25 09:52 3 ml Q2HR PRN Administration SHORTNESS OF BREATH OR WHEEZE Apixaban 5 mg 04/14/25 09:00 04/22/25 09:06 Apixaban 2.5 Mg Tablet GT 05/05/25 08:59 5 mg BID KIT Administration Artificial Tears 1 drop 04/14/25 09:00 04/22/25 09:10 Artificial Tears 225 Drop/15 Ml Btl BOTH EYES 05/14/25 08:59 1 drop BID KIT Administration Baclofen 5 mg 04/13/25 22:00 04/22/25 05:16 Baclofen 10 Mg Tablet GT 05/13/25 21:59 5 mg TID KIT Administration Bisacodyl 10 mg 04/19/25 14:32 Bisacodyl 10 Mg Supp NM 05/19/25 08:10 Q72H PRN CONSTIPATION Protocol Carbamide Peroxide 5 drop 04/13/25 22:00 04/13/25 23:38 Carbamide Peroxide Otic Lala 15 Ml Btl BOTH EARS 05/13/25 21:59 5 drops Q61D KIT Administration Collagenase 0 gm 04/14/25 21:00 04/21/25 20:46 Collagenase Oint 30 Gm Tube TOP 05/14/25 20:59 1 applicatio HS KIT Administration Fludrocortisone Acetate 0.1 mg 04/14/25 09:00 04/22/25 09:06 Fludrocortisone Acetate 0.1 Mg Tablet GT 05/14/25 08:59 0.1 mg DAILY KIT Administration Guaifenesin 200 mg 04/18/25 10:32 04/20/25 07:31 Guaifenesin Syrup 200 Mg/10 Ml Udc 05/18/25 10:31 200 mg QID PRN Administration thickened sputum/COUGH Protocol Dextrose 500 mls @ 75 mls/hr 04/22/25 08:15 04/22/25 09:10 D5w IV 04/22/25 14:54 75 mls/hr .Q6H40M KIT Administration Ceftazidime/Avibactam 2.5 gm/ 100 mls @ 50 mls/hr 04/22/25 12:15 04/22/25 12:24 Sodium Chloride IV 04/29/25 12:14 50 mls/hr Q12HR KIT Administration Lansoprazole 30 mg 04/16/25 09:00 04/22/25 09:06 Lansoprazole 30 Mg Tab.Rap. GT 05/14/25 08:59 30 mg QDAY KIT Administration Levetiracetam 1,000 mg 04/13/25 22:00 04/22/25 09:06 Levetiracetam Liqd 500 Mg/5 Ml Udc 05/13/25 21:59 1,000 mg BID KIT Administration Lorazepam 0.5 mg 04/19/25 14:57 04/20/25 07:27 Lorazepam 0.5 Mg Tablet GT 04/24/25 14:56 0.5 mg Q6HR PRN Administration anxiety Midodrine 10 mg 04/13/25 22:45 04/22/25 05:16 Midodrine 5 Mg Tablet GT 05/13/25 22:44 10 mg TID KIT Administration Ondansetron HCl 4 mg 04/13/25 21:42 Ondansetron Inj 2 Mg/Ml Inj 2 Ml IVP 05/13/25 21:41 Q6H PRN NAUSEA OR VOMITING Protocol Phenytoin 600 mg 04/19/25 21:00 04/22/25 09:05 Phenytoin 100 Mg/4 Ml Udc GT 05/19/25 20:59 600 mg BID KIT Administration Polyethylene Glycol 17 gm 04/19/25 10:30 04/22/25 09:06 Polyethylene Glycol 17 Gm Packet GT 05/19/25 10:29 17 gm QDAY KIT Administration Sodium Chloride 5 ml 04/14/25 14:01 04/22/25 05:17 Sodium Chloride 0.9% Flush 10 Ml Syringe IVP 05/13/25 21:59 5 ml Q8HR KIT Administration Sodium Hypochlorite 473 ml 04/14/25 21:00 04/22/25 12:25 Sod Hypochlorite 1/4 Str 473 Ml Btl IRRIG 05/14/25 20:59 1 applicatio BID KIT Administration Sodium Phosphate 133 ml 04/19/25 08:11 Sodium Phos,[place]hel[place]-Dibasic 133 Ml (Fleet) Enema Btl RC PRN PRN No BM Per Bowel Management Protocol Protocol Plan This 39-year-old male with a past medical history of 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, status post tracheostomy, mechanical ventilation, PEG tube, suprapubic catheter, right nephrostomy tube due to obstructive uropathy, and bilateral upper extremity DVT, presented to [facility] from in-house subacute for fever will be admitted for IV antibiotics for treatment of ventilator associated pneumonia. #Acute on chronic hypoxic resp failure on mech vent #Ventilator associated pneumonia #New onset fever Patient presenting with fevers noted at subacute facility, trach and PEG and high risk for aspiration secondary to being ventilated In the ED, patient has leukocytosis, elevated Pro-Chuck Chest x-ray shows bibasilar and right middle lobe pneumonia Urinalysis does show signs of infection with positive nitrites, leukocyte Esterase and +1 bacteria, suprapubic catheter Sputum culture growing ESBL Proteus mirabilis sensitive to meropenem. Blood cultures showing no growth. Urine cultures showed no growth. Patient has a chronic history of recurring pneumonia Patient had new fever with WBC elevation, reordered sputum/blood cultures, extended meropenum Changed antibiotics to Avycaz with ICU guidance, based on previous cultures. Procal trending down, lactate negative. Plan: Avycaz 2.5gm IV q12hr Frequent suctioning and chest PT Monitor for fever spikes Robitussin, DuoNebs as needed Follow up blood and sputum cultures #Phenytoin toxicity likely due to ?medication dosage pb #Hx of seizure, patient history #Anoxic brain injury post cardiac arrest in chronic vegetative state Phenytoin level elevated >40. Poison control was contacted and recommended to ask lab if a more specific measurement can be done to get a better idea of the blood levels. They also recommended to monitor for respiratory depression, coma, seizures, rash Patient history as stated. Patient is nonverbal at baseline and is a&o x0. Phenytoin reached therapeutic range, confirmed with poison control safe to resume at provider discretion. Plan: Continue with home medications Phenytoin 600mg GT BID Monitoring with BMP and phenytoin levels daily #Constipation, suspected ileus Patient had rapid response due to tachypnea, was found to have abdominal distention and tenderness, given morphine and KUB ordered. KUB showed significant stool burden despite patient having regular bowel movements. Patient had multiple BMs with improvement in abdominal distention and tenderness. Plan: As needed Fleet enemas Scheduled MiraLAX Monitor for bowel movements Ativan as needed ordered for agitation/anxiety #ELDON on CKD Stage 3B #Hyperosmolar hypernatremia and hyperchloremia #Hx Obstructive uropathy with neurogenic bladder with Rt nephrostomy tube+ suprapubic cath -Related to phenytoin toxicity vs Medications Patient has a nephrostomy tube (placed at [facility]) as well as suprapubic catheter Patient had elevated creatinine of 3.2 which is above his baseline of around 1.6. Was Given 1L bolus in ED. Sodium elevated at 154 possibly due to hx of obstructive uropathy in setting of pneumonia vs a low volume picture. Retroperitoneal ultrasound showed bilateral hydronephrosis. Urologist said that no acute intervention required at this point. Sodium improved 149. Creatinine improved to 1.7. Patient is making adequate urine. Sodium improved to 143, reduced IVF and free water flushes. Plan: Nephrology consulted, appreciate recommendations Free water flushes to 300cc every 3 hours, will continue to monitor Renally dose medications Avoid nephrotoxic agents D5W at 75 ml/hr #Decubitus ulcer #History Osteomyelitis History of sacral wound culture grew ESBL Proteus on 01/08/2025 sensitive to Augmentin in the past Plan: Wound culture grew Proteus, continue meropenem 1,000 mg IV Q12 hr (04/14-04/21) Wound care referral #History of bilateral upper extremity DVT #History of factor V Leyden deficiency Patient with history of bilateral upper extremity DVT history of factor V Leyden deficiency, was swtiched to Eliquis 5mg GT BID on last discharge Plan: Continue Eliquis 5 mg GT bid #Anemia of chronic disease Patient's hemoglobin was 7.9 No signs of active bleeding. Plan: Continue to monitor #Adrenal insufficiency, suspected Patient takes 0.1 mg fludrocortisone at twice daily at home, suspect due to history of adrenal sufficiency although not clearly documented. Would explain patient's significant hypotension and continued soft blood pressure. Plan: Continuing home med: Fludrocortisone 0.1 mg GT daily Health management: Diet: Jevity Tube Feeds with water flushes DVT ppx: Eliquis 5 mg GT BID GI ppx: Protonix Lines: PIV, suprapubic catheter, right-sided nephrostomy tube, trach Code status: DNR Patient was seen and discussed with attending physician Dr Norris. James Crespo MD PGY-2 Attending Provider Attestation/Addendum I, Nuris Norris DO, attest that I was physically present for the purdy portions of the service and evaluated the patient with the resident and I reviewed and discussed the case with the resident and agree with the resident's findings and plans of care as documented above Patient seen and evaluated this a.m. No acute events overnight. Patient appears to be much more comfortable today. Mild tachycardia noted, but improved. Pulmonology recommends switching antibiotics to ceftazidime/avibactam based off of previous cultures. Will follow-up with repeat cultures as patient continues to have fevers.
[2025-04-22] MEDS: COLLAGENASE OINT 30 GM TUBE TOP (21:47)
[2025-04-23] VITALS (13 sets, daily range): BP systolic 89–116; BP diastolic 62–87; PULSE 95–117; RESP 20–32; TEMP 36.1–36.5; O2SAT 95–100; BMI 27.0
[2025-04-23] MEDS: MIDODRINE 5 MG TABLET 10 MG GT ×3 (05:42→21:25)
[2025-04-23] MEDS: BACLOFEN 10 MG TABLET 5 MG GT ×3 (05:43→21:25)
[2025-04-23 06:32] LABS: Basophils # (Auto) 0.1 Thou/mm3 (0.0-0.2); Basophils % (Auto) 1 % (0-2.5); Eosinophils # (Auto) 3.8 Thou/mm3 (0.0-0.5); Eosinophils % (Auto) 23 % (0-10); Hematocrit 25.1 % (41.0-53.0); Immature Granulocytes Auto 0.09 Thou/mm3 (0.00-0.00); Lymphocytes # (Auto) 1.6 Thou/mm3 (1.0-4.8); Lymphocytes % (Auto) 10 % (10-50); Mean Corpuscular HGB Conc 31.1 g/dl (31.0-37.0); Mean Corpuscular Hemoglobin 28.9 pg (25.0-35.0); Mean Corpuscular Volume 93 fL (80-100); Monocytes # (Auto) 1.0 Thou/mm3 (0.0-0.8); Monocytes % (Auto) 6 % (0-12); Neutrophils # (Auto) 10.0 Thou/mm3 (1.8-7.7); Neutrophils % (Auto) 60 % (37-80); Nucleated Red Blood Cell # 0.00 Thou/mm3 (0.00-0.00); Nucleated Red Blood Cell % 0 /100 WBC (0); Platelet Count 437 Thou/mm3 (140-440); RDW Standard Deviation 52.5 fL (35.1-43.9); Red Blood Count 2.70 Miln/mm3 (4.50-5.90); White Blood Count 16.6 Thou/mm3 (3.8-10.6)
[2025-04-23 06:33] LABS: Osmolality, Urine* 433 mOsm/kg (50-1200)
[2025-04-23 06:41] LABS: Hemoglobin 7.8 g/dL (13.5-16.0)
[2025-04-23 06:56] LABS: Gamma Glutamyl Transpeptidase* 492 U/L (3-95)
[2025-04-23 07:13] LABS: Alanine Aminotransferase 66 U/L (10-49); Albumin, Serum 3.4 gm/dL (3.5-5.0); Albumin/Globulin Ratio 0.9 (1.2-2.2); Alkaline Phosphatase 433 U/L (46-116); Anion Gap 13 (7-16); Aspartate Amino Transferase 46 U/L (0-34); BUN/Creatinine Ratio 28 Ratio (12-20); Bilirubin,Total 0.2 mg/dL (0.3-1.2); Blood Urea Nitrogen 51 mg/dL (9-23); Calcium 8.8 mg/dL (8.3-10.6); Calcium (Corrected) 9.3 mg/dL (8.5-10.1); Carbon Dioxide 26.8 mMol/L (20.0-31.0); Chloride 107 mMol/L (98-107); Creatinine (Component) 1.8 mg/dL (0.6-1.3); Estimated Creatinine Clearance 49.1 mL/min (>60); Globulin 3.6 gm/dL (2.3-3.5); Glucose 109 mg/dL (74-106); Magnesium 1.9 mg/dL (1.6-2.6); Osmolality,Calculated 307 (275-295); Phenytoin (Dilantin) 6.6 mcg/mL; Phosphorous 3.6 mg/dL (2.4-5.1); Potassium 4.0 mMol/L (3.4-5.1); Sodium 147 mMol/L (136-145); Total Protein 7.0 gm/dL (5.7-8.2); eGFR 48 See Note
[2025-04-23] MEDS: APIXABAN 2.5 MG TABLET 5 MG GT ×2 (10:15→21:25)
[2025-04-23] MEDS: levETIRAcetam LIQD 500 MG/5 ML UDC 1000 MG GT ×2 (10:15→21:25)
[2025-04-23] MEDS: SODIUM CHLORIDE 0.9% IV ×2 (10:15→21:22)
[2025-04-23] MEDS: PHENYTOIN 100 MG/4 ML UDC 600 MG GT ×2 (10:15→21:23)
[2025-04-23] MEDS: AVIBACTAM IV ×2 (10:15→21:22)
[2025-04-23] MEDS: CEFTAZIDIME IV ×2 (10:15→21:22)
[2025-04-23] MEDS: POLYETHYLENE GLYCOL 17 GM PACKET GT (10:23)
[2025-04-23] MEDS: FLUDROCORTISONE ACETATE 0.1 MG TABLET GT (10:23)
[2025-04-23] MEDS: Artificial Tears 225 DROP/15 ML BTL BOTH EYES ×2 (10:24→21:27)
[2025-04-23] MEDS: LANSOPRAZOLE 30 MG TAB.RAP.DR GT (10:24)
[2025-04-23] MEDS: SOD HYPOCHLORITE 1/4 STR 473 ML BTL IRRIG ×2 (10:25→21:24)
[2025-04-23] MEDS: DEXTROSE 5%-WATER 500 ML 70 ML IV ×2 (12:41→18:25)
[2025-04-23 13:21] LABS: Cocci Serology, IgG Negative (Negative)
--- NOTE | 2025-04-23 14:21 | ESPR_ITS ---
Documentation for date of: 04/23/25 Subjective Subjective Interval history: Overnight events: No acute events overnight. Patient was seen and examined at bedside. AM vitals and labs reviewed. BUN 51, creatinine 1.8, GFR 48, and sodium 147. WBC 16.6. Ins/outs 2308/3475. Urine osmolality collected from 04/15 resulted today as 433. Calculated serum osmolality 307. D5W discontinued. No change in patient's status as compared to yesterday. Patient is still nonverbal and does not respond to commands or questioning. Trach tube still in place with mechanical ventilation. Review of systems otherwise negative except for what is mentioned above. Exam Vital Signs Temp Pulse Resp BP Pulse Ox O2 Del Method O2 Flow Rate 97.2 F 113 H 27 H 116/87 H 95 Mechanical Ventilation 45 04/23/25 12:00 04/23/25 12:00 04/23/25 12:00 04/23/25 12:00 04/23/25 12:00 04/23/25 12:00 04/23/25 12:00 FiO2 40 04/23/25 12:00 Narrative Exam Physical Exam: General: No acute distress. Skin: Warm, dry, intact, no obvious rash. Head: Normocephalic, atraumatic. Eye: Normal conjunctiva, PERRL. Extremities: No edema, no cyanosis, no clubbing. 2+ radial pulse bilaterally, 2+ pedal pulse bilaterally. Objective Labs 04/24/25 05:51 04/24/25 05:51 Labs: Laboratory Results - last 24 hr 04/15/25 04/20/25 04/22/25 16:00 04:56 04:45 WBC RBC Hgb Hct MCV MCH MCHC RDW Std Deviation Plt Count Neut % (Auto) Lymph % (Auto) [place] % (Auto) Eos % (Auto) Baso % (Auto) Neut # (Auto) Lymph # (Auto) [place] # (Auto) Eos # (Auto) Baso # (Auto) Immature Gran # (Auto) Absolute Nucleated RBC Immature Gran % Nucleated RBC % Sodium Potassium Chloride Carbon Dioxide Anion Gap BUN Creatinine Estim Creat Clear Calc eGFR BUN/Creatinine Ratio Glucose Calculated Osmolality Calcium Corrected Calcium Phosphorus Magnesium Total Bilirubin GGT 492 H AST ALT Alkaline Phosphatase Total Protein Albumin Globulin Albumin/Globulin Ratio Urine Osmolality 433 Phenytoin Coccidioides IgG Ab Negative 04/23/25 05:57 WBC 16.6 H RBC 2.70 L Hgb 7.8 L Hct 25.1 L MCV 93 MCH 28.9 MCHC 31.1 RDW Std Deviation 52.5 H Plt Count 437 D Neut % (Auto) 60 Lymph % (Auto) 10 [place] % (Auto) 6 Eos % (Auto) 23 H Baso % (Auto) 1 Neut # (Auto) 10.0 H Lymph # (Auto) 1.6 [place] # (Auto) 1.0 H Eos # (Auto) 3.8 H Baso # (Auto) 0.1 Immature Gran # (Auto) 0.09 H Absolute Nucleated RBC 0.00 Immature Gran % 1 H Nucleated RBC % 0 Sodium 147 H Potassium 4.0 Chloride 107 Carbon Dioxide 26.8 Anion Gap 13 BUN 51 H Creatinine 1.8 H Estim Creat Clear Calc 49.1 L eGFR 48 L BUN/Creatinine Ratio 28 H Glucose 109 H Calculated Osmolality 307 H Calcium 8.8 Corrected Calcium 9.3 Phosphorus 3.6 Magnesium 1.9 Total Bilirubin 0.2 L GGT AST 46 H ALT 66 H Alkaline Phosphatase 433 H D Total Protein 7.0 Albumin 3.4 L Globulin 3.6 H Albumin/Globulin Ratio 0.9 L Urine Osmolality Phenytoin 6.6 Coccidioides IgG Ab ABG Interpretation ABG results: 04/15/25 04/19/25 04/21/25 10:20 07:08 08:36 ABG pH 7.32 L 7.42 7.40 ABG pCO2 49 H 39 44 ABG pO2 120 H 71 L 91 D ABG HCO3 25 26 27 H ABG O2 Saturation 99 H 96 98 ABG Base Excess -1 1 2 Quality Measures Quality Measures VTE prophylaxis (Eliquis 5 mg twice daily) Assessment & Plan Assessment Current Active Medications: Generic Name Dose Route Start Last Admin Trade Name Freq PRN Reason Stop Dose Admin Acetaminophen 325 mg 04/13/25 21:45 04/21/25 12:55 Acetaminophen Lala 325 Mg/10 Ml Udc GT 05/13/25 21:44 325 mg Q4HR PRN Administration Pain 1-3 Or Fever > 101 Albuterol/Ipratropium 3 ml 04/18/25 09:53 04/20/25 12:49 Albuterol/Ipratropium (Duoneb) Rt Lala 3 Ml Nebu INH 05/18/25 09:52 3 ml Q2HR PRN Administration SHORTNESS OF BREATH OR WHEEZE Apixaban 5 mg 04/14/25 09:00 04/23/25 10:15 Apixaban 2.5 Mg Tablet GT 05/05/25 08:59 5 mg BID KIT Administration Artificial Tears 1 drop 04/14/25 09:00 04/23/25 10:24 Artificial Tears 225 Drop/15 Ml Btl BOTH EYES 05/14/25 08:59 1 drop BID KIT Administration Baclofen 5 mg 04/13/25 22:00 04/23/25 05:43 Baclofen 10 Mg Tablet GT 05/13/25 21:59 5 mg TID KIT Administration Bisacodyl 10 mg 04/19/25 14:32 Bisacodyl 10 Mg Supp MI 05/19/25 08:10 Q72H PRN CONSTIPATION Protocol Carbamide Peroxide 5 drop 04/13/25 22:00 04/13/25 23:38 Carbamide Peroxide Otic Lala 15 Ml Btl BOTH EARS 05/13/25 21:59 5 drops Q61D KIT Administration Collagenase 0 gm 04/14/25 21:00 04/22/25 21:47 Collagenase Oint 30 Gm Tube TOP 05/14/25 20:59 1 applicatio HS KIT Administration Fludrocortisone Acetate 0.1 mg 04/14/25 09:00 04/23/25 10:23 Fludrocortisone Acetate 0.1 Mg Tablet GT 05/14/25 08:59 0.1 mg DAILY KIT Administration Guaifenesin 200 mg 04/18/25 10:32 04/20/25 07:31 Guaifenesin Syrup 200 Mg/10 Ml Udc GT 05/18/25 10:31 200 mg QID PRN Administration thickened sputum/COUGH Protocol Ceftazidime/Avibactam 2.5 gm/ 100 mls @ 50 mls/hr 04/22/25 12:15 04/23/25 10:15 Sodium Chloride IV 04/29/25 12:14 50 mls/hr Q12HR KIT Administration Dextrose 500 mls @ 70 mls/hr 04/23/25 07:45 04/23/25 12:41 D5w IV 04/23/25 22:02 70 mls/hr .Q7H9M KIT Administration Lansoprazole 30 mg 04/16/25 09:00 04/23/25 10:24 Lansoprazole 30 Mg Tab.Rap. GT 05/14/25 08:59 30 mg QDAY KIT Administration Levetiracetam 1,000 mg 04/13/25 22:00 04/23/25 10:15 Levetiracetam Liqd 500 Mg/[facility]l [facility] 05/13/25 21:59 1,000 mg BID KIT Administration Lorazepam 0.5 mg 04/19/25 14:57 04/20/25 07:27 Lorazepam 0.5 Mg Tablet 04/24/25 14:56 0.5 mg Q6HR PRN Administration anxiety Midodrine 10 mg 04/13/25 22:45 04/23/25 05:42 Midodrine 5 Mg Tablet 05/13/25 22:44 10 mg TID KIT Administration Ondansetron HCl 4 mg 04/13/25 21:42 Ondansetron Inj 2 Mg/Ml Inj 2 Ml IVP 05/13/25 21:41 Q6H PRN NAUSEA OR VOMITING Protocol Phenytoin 600 mg 04/19/25 21:00 04/23/25 10:15 Phenytoin 100 Mg/4 Ml [facility] 05/19/25 20:59 600 mg BID KIT Administration Polyethylene Glycol 17 gm 04/19/25 10:30 04/23/25 10:23 Polyethylene Glycol 17 Gm Packet 05/19/25 10:29 17 gm QDAY KIT Administration Sodium Chloride 5 ml 04/14/25 14:01 04/23/25 05:43 Sodium Chloride 0.9% Flush 10 Ml Syringe IVP 05/13/25 21:59 5 ml Q8HR KIT Administration Sodium Hypochlorite 473 ml 04/14/25 21:00 04/23/25 10:25 Sod Hypochlorite 1/4 Str 473 Ml Btl IRRIG 05/14/25 20:59 1 applicatio BID KIT Administration Sodium Phosphate 133 ml 04/19/25 08:11 Sodium Phos,[place]-Dibasic 133 Ml (Fleet) Enema Btl RC PRN PRN No BM Per Bowel Management Protocol Protocol Plan Mr. Smith is a 39 year old male with a relevant medical history of anoxic brain injury, s/p tracheotomy, mechanical ventilation, and right nephrostomy tube for obstructive uropathy, who presented with a fever. The patient was admitted for use of IV antibiotics in suspicion of ventilator associated pneumonia. Nephrology was consulted due to concerns of ELDON on CKD IV. #ELDON on CKD IIIB #Obstructive uropathy Patient was admitted with BUN of 102, Cr 3.4, and eGFR of 22. Given the patient's prior history of obstructive uropathy, ELDON may be due to ATN 2/2 drops in BP as recorded in EMR prior to admission to [facility]. - Renal function lab values improving over time. - Renally adjust medications. - IV fluid resuscitation as tolerated. - Nephrology will continue to follow #Hypernatremia #Suspected post ATN diuresis Patient was admitted with elevated sodium level of 154. Sodium continued to be elevated but improved with IV hydration. Serum sodium decreased to within normal limits on 04/18/25. Sodium re-elevated on 04/21/25 to 149. Urine output throughout hospital stay ranges from 1400mL to 4700mL, with only 2 days of urine >4L. Currently suspecting post ATN diuresis, a condition where there is marked diuresis during the recovery from damage to the kidneys as it is thought that the recovering renal tubules are less efficient at reabsorbing fluids. Diabetes insipidus can present similarly, but it will have a consistent urine output >4L, low urine sodium, low urine osmolality, and high plasma osmolality. Current suspicion for diabetes insipidus low based on clinical picture. - Will hold off on desmopressin for now. - Recommend urine sodium, urine osmolality, and plasma osmolality if concern for diabetes insipidus persists. - Urine osmolality sent out on 04/15/25 resulted as 433. - Urine osmolality expected to be less than serum osmolality in diabetes insipidus. - Urine sodium 04/15 within normal limits, expected to be low in diabetes insipidus. - Increase 300mL flush Q3hrs to 400mL flushes with tube feeds for adequate hydration. Patient was discussed with the Nephrology attending, Dr. Duran. Thank you for allowing us to participate in the care of this patient. Salazar Smalls, PGY-1 Attending Provider Attestation/Addendum Agree with assessment and plan and finding of resident. Kevin Duran MD
--- NOTE | 2025-04-23 14:40 | ESPR_ITS ---
<Statement entered by James Crespo MD - 04/23/25 15:46> Patient seen and examined at bedside, no acute overnight events. I discussed and supervised with the internist physician who took care of this patient. I personally saw and examined the patient. I agree with most of the assessment and plan. Patient closer to baseline, less tachypneic and tachycardic. No new fevers. Continuing Avycaz. Continuing IV fluids for hypernatremia, increased free water flushes per nephrology consult. Continue phenytoin. Plan of care discussed with attending Dr. Olivo. James Crespo MD PGY-2 Documentation for date of: 04/23/25 Subjective Subjective Interval history: No acute overnight events reported. The patient remained stable on the ventilator with no new fever spikes. PEG feeds were tolerated well. No new wound concerns noted. 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 dry mucus membrane. EOMI, clear conjunctiva, oropharynx clear. NECK: Supple without lymphadenopathy. No stiffness or restricted ROM. HEART: sinus tachycardia with regular rhythm, normal S1/S2, no m/r/g LUNGS: coarse rhonchi with copious thick secretions. Tachypnea. ABDOMEN: Soft, nontender, nondistended with good bowel sounds heard. PEG tube EXTREMITIES: Without cyanosis, clubbing or edema. NEUROLOGICAL: [facility] Rt nephrotosmy tube in place Skin: Sacral wounds Grade III. No discoloration/rashes/edema/amputations. +Pedal pulses present B/L. Objective Labs 04/23/25 05:57 04/23/25 05:57 Labs: Laboratory Results - last 24 hr 04/15/25 04/20/25 04/22/25 16:00 04:56 04:45 WBC RBC Hgb Hct MCV MCH MCHC RDW Std Deviation Plt Count Neut % (Auto) Lymph % (Auto) Mccracken % (Auto) Eos % (Auto) Baso % (Auto) Neut # (Auto) Lymph # (Auto) Mccracken # (Auto) Eos # (Auto) Baso # (Auto) Immature Gran # (Auto) Absolute Nucleated RBC Immature Gran % Nucleated RBC % Sodium Potassium Chloride Carbon Dioxide Anion Gap BUN Creatinine Estim Creat Clear Calc eGFR BUN/Creatinine Ratio Glucose Calculated Osmolality Calcium Corrected Calcium Phosphorus Magnesium Total Bilirubin GGT 492 H AST ALT Alkaline Phosphatase Total Protein Albumin Globulin Albumin/Globulin Ratio Urine Osmolality 433 Phenytoin Coccidioides IgG Ab Negative 04/23/25 05:57 WBC 16.6 H RBC 2.70 L Hgb 7.8 L Hct 25.1 L MCV 93 MCH 28.9 MCHC 31.1 RDW Std Deviation 52.5 H Plt Count 437 D Neut % (Auto) 60 Lymph % (Auto) 10 Mccracken % (Auto) 6 Eos % (Auto) 23 H Baso % (Auto) 1 Neut # (Auto) 10.0 H Lymph # (Auto) 1.6 Mccracken # (Auto) 1.0 H Eos # (Auto) 3.8 H Baso # (Auto) 0.1 Immature Gran # (Auto) 0.09 H Absolute Nucleated RBC 0.00 Immature Gran % 1 H Nucleated RBC % 0 Sodium 147 H Potassium 4.0 Chloride 107 Carbon Dioxide 26.8 Anion Gap 13 BUN 51 H Creatinine 1.8 H Estim Creat Clear Calc 49.1 L eGFR 48 L BUN/Creatinine Ratio 28 H Glucose 109 H Calculated Osmolality 307 H Calcium 8.8 Corrected Calcium 9.3 Phosphorus 3.6 Magnesium 1.9 Total Bilirubin 0.2 L GGT AST 46 H ALT 66 H Alkaline Phosphatase 433 H D Total Protein 7.0 Albumin 3.4 L Globulin 3.6 H Albumin/Globulin Ratio 0.9 L Urine Osmolality Phenytoin 6.6 Coccidioides IgG Ab ABG Interpretation ABG results: 04/15/25 04/19/25 04/21/25 10:20 07:08 08:36 ABG pH 7.32 L 7.42 7.40 ABG pCO2 49 H 39 44 ABG pO2 120 H 71 L 91 D ABG HCO3 25 26 27 H ABG O2 Saturation 99 H 96 98 ABG Base Excess -1 1 2 Quality Measures Quality Measures VTE prophylaxis (Eliquis 5 mg twice daily) Assessment & Plan Assessment Current Active Medications: Generic Name Dose Route Start Last Admin Trade Name Freq PRN Reason Stop Dose Admin Acetaminophen 325 mg 04/13/25 21:45 04/21/25 12:55 Acetaminophen Lala 325 Mg/10 Ml Udc GT 05/13/25 21:44 325 mg Q4HR PRN Administration Pain 1-3 Or Fever > 101 Albuterol/Ipratropium 3 ml 04/18/25 09:53 04/20/25 12:49 Albuterol/Ipratropium (Duoneb) Rt Lala 3 Ml Nebu INH 05/18/25 09:52 3 ml Q2HR PRN Administration SHORTNESS OF BREATH OR WHEEZE Apixaban 5 mg 04/14/25 09:00 04/23/25 10:15 Apixaban 2.5 Mg Tablet GT 05/05/25 08:59 5 mg BID KIT Administration Artificial Tears 1 drop 04/14/25 09:00 04/23/25 10:24 Artificial Tears 225 Drop/15 Ml Btl BOTH EYES 05/14/25 08:59 1 drop BID KIT Administration Baclofen 5 mg 04/13/25 22:00 04/23/25 14:07 Baclofen 10 Mg Tablet GT 05/13/25 21:59 5 mg TID KIT Administration Bisacodyl 10 mg 04/19/25 14:32 Bisacodyl 10 Mg Supp NV 05/19/25 08:10 Q72H PRN CONSTIPATION Protocol Carbamide Peroxide 5 drop 04/13/25 22:00 04/13/25 23:38 Carbamide Peroxide Otic Lala 15 Ml Btl BOTH EARS 05/13/25 21:59 5 drops Q61D KIT Administration Collagenase 0 gm 04/14/25 21:00 04/22/25 21:47 Collagenase Oint 30 Gm Tube TOP 05/14/25 20:59 1 applicatio HS KIT Administration Fludrocortisone Acetate 0.1 mg 04/14/25 09:00 04/23/25 10:23 Fludrocortisone Acetate 0.1 Mg Tablet GT 05/14/25 08:59 0.1 mg DAILY KIT Administration Guaifenesin 200 mg 04/18/25 10:32 04/20/25 07:31 [facility]in [facility]25 10:31 200 mg QID PRN Administration thickened sputum/COUGH Protocol Ceftazidime/Avibactam 2.5 gm/ 100 mls @ 50 mls/hr 04/22/25 12:15 04/23/25 10:15 Sodium Chloride IV 04/29/25 12:14 50 mls/hr Q12HR KIT Administration Dextrose 500 mls @ 70 mls/hr 04/23/25 07:45 04/23/25 12:41 D5w IV 04/23/25 22:02 70 mls/hr .Q7H9M KIT Administration Lansoprazole 30 mg 04/16/25 09:00 04/23/25 10:24 Lansoprazole 30 Mg Tab.Rap. 05/14/25 08:59 30 mg QDAY KIT Administration Levetiracetam 1,000 mg 04/13/25 22:00 04/23/25 10:15 Levetiracetam Liqd 500 Mg/5 Ml [facility] 05/13/25 21:59 1,000 mg BID KIT Administration Lorazepam 0.5 mg 04/19/25 14:57 04/20/25 07:27 Lorazepam 0.5 Mg Tablet 04/24/25 14:56 0.5 mg Q6HR PRN Administration anxiety Midodrine 10 mg 04/13/25 22:45 04/23/25 14:25 Midodrine 5 Mg Tablet 05/13/25 22:44 10 mg TID KIT Administration Ondansetron HCl 4 mg 04/13/25 21:42 Ondansetron Inj 2 Mg/Ml Inj 2 Ml IVP 05/13/25 21:41 Q6H PRN NAUSEA OR VOMITING Protocol Phenytoin 600 mg 04/19/25 21:00 04/23/25 10:15 Phenytoin 100 Mg/4 Ml Udc 05/19/25 20:59 600 mg BID KIT Administration Polyethylene Glycol 17 gm 04/19/25 10:30 04/23/25 10:23 Polyethylene Glycol 17 Gm Packet 05/19/25 10:29 17 gm QDAY KIT Administration Sodium Chloride 5 ml 04/14/25 14:01 04/23/25 14:08 Sodium Chloride 0.9% Flush 10 Ml Syringe IVP 05/13/25 21:59 5 ml Q8HR KIT Administration Sodium Hypochlorite 473 ml 04/14/25 21:00 04/23/25 10:25 Sod Hypochlorite 1/4 Str 473 Ml Btl IRRIG 05/14/25 20:59 1 applicatio BID KIT Administration Sodium Phosphate 133 ml 04/19/25 08:11 Sodium Phos,Mccracken-Dibasic 133 Ml (Fleet) Enema Btl RC PRN PRN No BM Per Bowel Management Protocol Protocol Plan This 39-year-old male with a past medical history of 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, status post tracheostomy, mechanical ventilation, PEG tube, suprapubic catheter, right nephrostomy tube due to obstructive uropathy, and bilateral upper extremity DVT, presented to [facility] from in- house subacute for fever will be admitted for IV antibiotics for treatment of ventilator associated pneumonia. #Acute on chronic hypoxic resp failure on mech vent #Ventilator associated pneumonia #New onset fever Patient presenting with fevers noted at subacute facility, trach and PEG and high risk for aspiration secondary to being ventilated In the ED, patient has leukocytosis, elevated Pro-Chuck Chest x-ray shows bibasilar and right middle lobe pneumonia Urinalysis does show signs of infection with positive nitrites, leukocyte Esterase and +1 bacteria, suprapubic catheter Sputum culture growing ESBL Proteus mirabilis sensitive to meropenem. Blood cultures showing no growth. Urine cultures showed no growth. Patient has a chronic history of recurring pneumonia Patient had new fever with WBC elevation, reordered sputum/blood cultures, extended meropenum Changed antibiotics to Avycaz with ICU guidance, based on previous cultures. Procal trending down, lactate negative. Plan: Avycaz 2.5gm IV q12hr Frequent suctioning and chest PT Monitor for fever spikes Robitussin, DuoNebs as needed Follow up blood and sputum cultures #Phenytoin toxicity likely due to ?medication dosage pb #Hx of seizure, patient history #Anoxic brain injury post cardiac arrest in chronic vegetative state Phenytoin level elevated >40. Poison control was contacted and recommended to ask lab if a more specific measurement can be done to get a better idea of the blood levels. They also recommended to monitor for respiratory depression, coma, seizures, rash Patient history as stated. Patient is nonverbal at baseline and is a&o x0. Phenytoin reached therapeutic range, confirmed with poison control safe to resume at provider discretion. Plan: Continue with home medications Phenytoin 600mg GT BID Monitoring with BMP and phenytoin levels daily #Constipation, suspected ileus Patient had rapid response due to tachypnea, was found to have abdominal distention and tenderness, given morphine and KUB ordered. KUB showed significant stool burden despite patient having regular bowel movements. Patient had multiple BMs with improvement in abdominal distention and tenderness. Plan: As needed Fleet enemas Scheduled MiraLAX Monitor for bowel movements Ativan as needed ordered for agitation/anxiety #ELDON on CKD Stage 3B #Hyperosmolar hypernatremia and hyperchloremia #Hx Obstructive uropathy with neurogenic bladder with Rt nephrostomy tube+ suprapubic cath -Related to phenytoin toxicity vs Medications Patient has a nephrostomy tube (placed at [facility]) as well as suprapubic catheter Patient had elevated creatinine of 3.2 which is above his baseline of around 1.6. Was Given 1L bolus in ED. Sodium elevated at 154 possibly due to hx of obstructive uropathy in setting of pneumonia vs a low volume picture. Retroperitoneal ultrasound showed bilateral hydronephrosis. Urologist said that no acute intervention required at this point. Sodium improved 149. Creatinine improved to 1.7. Patient is making adequate urine. Sodium improved to 143, reduced IVF and free water flushes. Plan: Nephrology consulted, appreciate recommendations Increase free water flushes from 300 cc to 400 cc every 3 hours, will continue to monitor Renally dose medications Avoid nephrotoxic agents D5W at 75 ml/hr #Decubitus ulcer #History Osteomyelitis History of sacral wound culture grew ESBL Proteus on 01/08/2025 sensitive to Augmentin in the past Plan: Wound culture grew Proteus, continue meropenem 1,000 mg IV Q12 hr (04/14-04/21) Wound care referral #History of bilateral upper extremity DVT #History of factor V Leyden deficiency Patient with history of bilateral upper extremity DVT history of factor V Leyden deficiency, was swtiched to Eliquis 5mg GT BID on last discharge Plan: Continue Eliquis 5 mg GT bid #Anemia of chronic disease Patient's hemoglobin was 7.9 No signs of active bleeding. Plan: Continue to monitor #Adrenal insufficiency, suspected Patient takes 0.1 mg fludrocortisone at twice daily at home, suspect due to history of adrenal sufficiency although not clearly documented. Would explain patient's significant hypotension and continued soft blood pressure. Plan: Continuing home med: Fludrocortisone 0.1 mg GT daily Health management: Diet: Jevity Tube Feeds with water flushes DVT ppx: Eliquis 5 mg GT BID GI ppx: Protonix Lines: PIV, suprapubic catheter, right-sided nephrostomy tube, trach Code status: DNR Attending Provider Attestation/Addendum I attest that I was physically present for the evaluation, physical examination, lab and imaging review of the patient with the residents. I discussed the case with the residents and agree with the findings and plans of care as documented above. At bedside, patient appears comfortable, saturating well on mechanical ventilator. Does not have any new fever spikes. Continues to be on IV Avycaz. Sodium level is 147 today, we will continue with IV fluid and free water flushes as recommended by nephrology. Hemoglobin is stable at 7.8. WBC is downtrending. Continues to be on phenytoin, has not received therapeutic goal yet. Carin Olivo MD
--- NOTE | 2025-04-23 15:24 | PC.SS ---
Rounding: Pending cultures, will return to [facility] at the time of DC
[2025-04-23] MEDS: COLLAGENASE OINT 30 GM TUBE TOP (21:24)
[2025-04-24] VITALS (17 sets, daily range): BP systolic 97–160; BP diastolic 64–102; PULSE 11–117; RESP 16–38; TEMP 36.1–36.4; O2SAT 97–100; BMI 27.0
[2025-04-24] MEDS: BACLOFEN 10 MG TABLET 5 MG GT ×3 (06:06→21:55)
[2025-04-24] MEDS: MIDODRINE 5 MG TABLET 10 MG GT ×3 (06:07→21:56)
[2025-04-24 06:12] LABS: Basophils # (Auto) 0.1 Thou/mm3 (0.0-0.2); Basophils % (Auto) 1 % (0-2.5); Eosinophils # (Auto) 5.0 Thou/mm3 (0.0-0.5); Eosinophils % (Auto) 29 % (0-10); Hematocrit 25.3 % (41.0-53.0); Immature Granulocytes Auto 0.10 Thou/mm3 (0.00-0.00); Lymphocytes # (Auto) 1.9 Thou/mm3 (1.0-4.8); Lymphocytes % (Auto) 11 % (10-50); Mean Corpuscular HGB Conc 30.8 g/dl (31.0-37.0); Mean Corpuscular Hemoglobin 28.0 pg (25.0-35.0); Mean Corpuscular Volume 91 fL (80-100); Monocytes # (Auto) 1.1 Thou/mm3 (0.0-0.8); Monocytes % (Auto) 6 % (0-12); Neutrophils # (Auto) 9.0 Thou/mm3 (1.8-7.7); Neutrophils % (Auto) 52 % (37-80); Nucleated Red Blood Cell # 0.00 Thou/mm3 (0.00-0.00); Nucleated Red Blood Cell % 0 /100 WBC (0); Platelet Count 505 Thou/mm3 (140-440); RDW Standard Deviation 55.2 fL (35.1-43.9); Red Blood Count 2.79 Miln/mm3 (4.50-5.90); White Blood Count 17.2 Thou/mm3 (3.8-10.6)
[2025-04-24 06:19] LABS: Hemoglobin 7.8 g/dL (13.5-16.0)
[2025-04-24 06:38] LABS: Alanine Aminotransferase 84 U/L (10-49); Albumin, Serum 3.7 gm/dL (3.5-5.0); Albumin/Globulin Ratio 1.0 (1.2-2.2); Alkaline Phosphatase 430 U/L (46-116); Anion Gap 13 (7-16); Aspartate Amino Transferase 51 U/L (0-34); BUN/Creatinine Ratio 28 Ratio (12-20); Bilirubin,Total 0.2 mg/dL (0.3-1.2); Blood Urea Nitrogen 48 mg/dL (9-23); Calcium 8.9 mg/dL (8.3-10.6); Calcium (Corrected) 9.1 mg/dL (8.5-10.1); Carbon Dioxide 26.8 mMol/L (20.0-31.0); Chloride 103 mMol/L (98-107); Creatinine (Component) 1.7 mg/dL (0.6-1.3); Estimated Creatinine Clearance 52.0 mL/min (>60); Globulin 3.6 gm/dL (2.3-3.5); Glucose 130 mg/dL (74-106); Magnesium 2.4 mg/dL (1.6-2.6); Osmolality,Calculated 299 (275-295); Phenytoin (Dilantin) 7.1 mcg/mL; Phosphorous 3.7 mg/dL (2.4-5.1); Potassium 4.0 mMol/L (3.4-5.1); Sodium 143 mMol/L (136-145); Total Protein 7.3 gm/dL (5.7-8.2); eGFR 51 See Note
[2025-04-24] MEDS: AVIBACTAM IV ×2 (09:15→21:58)
[2025-04-24] MEDS: FLUDROCORTISONE ACETATE 0.1 MG TABLET GT (09:15)
[2025-04-24] MEDS: DEXTROSE 5%-LACTATED RINGERS 1,000 ML 70 ML IV (09:15)
[2025-04-24] MEDS: CEFTAZIDIME IV ×2 (09:15→21:58)
[2025-04-24] MEDS: LANSOPRAZOLE 30 MG TAB.RAP.DR GT (09:15)
[2025-04-24] MEDS: guaiFENesin SYRUP 200 MG/10 ML UDC GT ×2 (09:15→14:28)
[2025-04-24] MEDS: PHENYTOIN 100 MG/4 ML UDC 600 MG GT ×2 (09:15→21:55)
[2025-04-24] MEDS: levETIRAcetam LIQD 500 MG/5 ML UDC 1000 MG GT ×2 (09:15→21:58)
[2025-04-24] MEDS: SODIUM CHLORIDE 0.9% IV ×2 (09:15→21:58)
[2025-04-24] MEDS: APIXABAN 2.5 MG TABLET 5 MG GT ×2 (09:15→21:57)
[2025-04-24] MEDS: POLYETHYLENE GLYCOL 17 GM PACKET GT (09:16)
[2025-04-24] MEDS: Artificial Tears 225 DROP/15 ML BTL BOTH EYES ×2 (09:16→21:57)
[2025-04-24] MEDS: SOD HYPOCHLORITE 1/4 STR 473 ML BTL IRRIG ×2 (09:19→21:58)
[2025-04-24] MEDS: MORPHINE SULF INJ 10 MG/ML VIAL 2 MG IVP (12:49)
--- NOTE | 2025-04-24 13:03 | XR_ITS ---
Examination: AP chest single view Technique one AP portable semiupright chest single view Date and time: April 24, 2025 1314 hrs. Comparison April 21, 2025 Indications: Difficulty breathing today. Findings: Tracheostomy tube tip 7 cm above dudley Bilateral subtle perihilar pneumonia Mild prominence of ventricle Right internal jugular central line tip satisfactory position Impression: Mild bilateral perihilar pneumonia.
[2025-04-24 15:20] LABS: Path Review Blood Smear Sent to Pathologist
--- NOTE | 2025-04-24 17:16 | PD.RESPRO ---
Documentation for date of: 04/24/25 Subjective Subjective Interval history: No overnight events. Patient seen and examined at bedside. Patient experienced notable agitation throughout the day, grimacing, flexing legs, overbreathing the vent with high peak pressures. In between these bouts of agitation, patient resting comfortably, with regular heart rate and rhythm, regular respirations. Scheduled Ativan by G-tube, as needed morphine. Sputum cultures grew Proteus and Pseudomonas, continuing current antibiotics. Patient remains afebrile. Given patient's poor functional status, continued agitation/distress, plan for goals of care conversation with family. 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 Appears intermittently agitated/distressed. HEENT: NC, AT. dry mucus membrane. EOMI, clear conjunctiva, oropharynx clear. NECK: Supple without lymphadenopathy. No stiffness or restricted ROM. HEART: sinus tachycardia with regular rhythm, normal S1/S2, no m/r/g LUNGS: coarse rhonchi with copious thick secretions. Tachypnea. ABDOMEN: Soft, nontender, nondistended with good bowel sounds heard. PEG tube EXTREMITIES: Without cyanosis, clubbing or edema. 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 No discoloration/rashes/edema/amputations. +Pedal pulses present B/L. Objective Labs 04/25/25 08:10 04/25/25 08:10 Labs: Laboratory Results - last 24 hr 04/24/25 05:51 WBC 17.2 H RBC 2.79 L Hgb 7.8 L Hct 25.3 L MCV 91 MCH 28.0 MCHC 30.8 L RDW Std Deviation 55.2 H Plt Count 505 H D Neut % (Auto) 52 Lymph % (Auto) 11 Elbert % (Auto) 6 Eos % (Auto) 29 H Baso % (Auto) 1 Neut # (Auto) 9.0 H Lymph # (Auto) 1.9 [place]bert # (Auto) 1.1 H Eos # (Auto) 5.0 H Baso # (Auto) 0.1 Immature Gran # (Auto) 0.10 H Absolute Nucleated RBC 0.00 Immature Gran % 1 H Nucleated RBC % 0 Smear Path Review Sent to Pathologist Sodium 143 Potassium 4.0 Chloride 103 Carbon Dioxide 26.8 Anion Gap 13 BUN 48 H Creatinine 1.7 H Estim Creat Clear Calc 52.0 L eGFR 51 L BUN/Creatinine Ratio 28 H Glucose 130 H Calculated Osmolality 299 H Calcium 8.9 Corrected Calcium 9.1 Phosphorus 3.7 Magnesium 2.4 Total Bilirubin 0.2 L AST 51 H ALT 84 H Alkaline Phosphatase 430 H Total Protein 7.3 Albumin 3.7 Globulin 3.6 H Albumin/Globulin Ratio 1.0 L Phenytoin 7.1 ABG Interpretation ABG results: 04/15/25 04/19/25 04/21/25 10:20 07:08 08:36 ABG pH 7.32 L 7.42 7.40 ABG pCO2 49 H 39 44 ABG pO2 120 H 71 L 91 D ABG HCO3 25 26 27 H ABG O2 Saturation 99 H 96 98 ABG Base Excess -1 1 2 Quality Measures Quality Measures VTE prophylaxis Assessment & Plan Assessment Current Active Medications: Generic Name Dose Route Start Last Admin Trade Name Freq PRN Reason Stop Dose Admin Acetaminophen 325 mg 04/13/25 21:45 04/21/25 12:55 Acetaminophen Lala 325 Mg/10 Ml Udc GT 05/13/25 21:44 325 mg Q4HR PRN Administration Pain 1-3 Or Fever > 101 Albuterol/Ipratropium 3 ml 04/18/25 09:53 04/20/25 12:49 Albuterol/Ipratropium (Duoneb) Rt Lala 3 Ml Nebu INH 05/18/25 09:52 3 ml Q2HR PRN Administration SHORTNESS OF BREATH OR WHEEZE Apixaban 5 mg 04/14/25 09:00 04/24/25 09:15 Apixaban 2.5 Mg Tablet GT 05/05/25 08:59 5 mg BID KIT Administration Artificial Tears 1 drop 04/14/25 09:00 04/24/25 09:16 Artificial Tears 225 Drop/15 Ml Btl BOTH EYES 05/14/25 08:59 1 drop BID KIT Administration Baclofen 5 mg 04/13/25 22:00 04/24/25 14:26 Baclofen 10 Mg Tablet GT 05/13/25 21:59 5 mg TID KIT Administration Bisacodyl 10 mg 04/19/25 14:32 Bisacodyl 10 Mg Supp SD 05/19/25 08:10 Q72H PRN CONSTIPATION Protocol Carbamide Peroxide 5 drop 04/13/25 22:00 04/13/25 23:38 Carbamide Peroxide Otic Lala 15 Ml Btl BOTH EARS 05/13/25 21:59 5 drops Q61D KIT Administration Collagenase 0 gm 04/14/25 21:00 04/23/25 21:24 Collagenase Oint 30 Gm Tube TOP 05/14/25 20:59 1 applicatio HS KIT Administration Fludrocortisone Acetate 0.1 mg 04/14/25 09:00 04/24/25 09:15 Fludrocortisone Acetate 0.1 Mg Tablet GT 05/14/25 08:59 0.1 mg DAILY KIT Administration Guaifenesin 200 mg 04/18/25 10:32 04/24/25 14:28 Guaifenesin Syrup 200 Mg[facility] 05/18/25 10:31 200 mg QID PRN Administration thickened sputum/COUGH Protocol Ceftazidime/Avibactam 2.5 gm/ 100 mls @ 50 mls/hr 04/22/25 12:15 04/24/25 09:15 Sodium Chloride IV 04/29/25 12:14 50 mls/hr Q12HR KIT Administration Dextrose/Lactated Ringer's 1,000 mls @ 70 mls/hr 04/24/25 07:45 04/24/25 09:15 D5-Lr IV 04/25/25 12:19 70 mls/hr .[id number] KIT Administration Lansoprazole 30 mg 04/16/25 09:00 04/24/25 09:15 Lansoprazole 30 Mg Tab.Rap GT 05/14/25 08:59 30 mg QDAY KIT Administration Levetiracetam 1,000 mg 04/13/25 22:00 04/24/25 09:15 Levetiracetam Liqd 500 Mg/5 Ml Udc 05/13/25 21:59 1,000 mg BID KIT Administration Midodrine 10 mg 04/13/25 22:45 04/24/25 14:28 Midodrine 5 Mg Tablet GT 05/13/25 22:44 10 mg TID KIT Administration Morphine Sulfate 2 mg 04/24/25 13:04 Morphine Sulf Inj 10 Mg/Ml Vial IVP 04/29/25 13:03 Q4HR PRN Pain 4-10 or agitation Ondansetron HCl 4 mg 04/13/25 21:42 Ondansetron Inj 2 Mg/Ml Inj 2 Ml IVP 05/13/25 21:41 Q6H PRN NAUSEA OR VOMITING Protocol Phenytoin 600 mg 04/19/25 21:00 04/24/25 09:15 Phenytoin 100 Mg/4 Ml Udc GT 05/19/25 20:59 600 mg BID KIT Administration Polyethylene Glycol 17 gm 04/19/25 10:30 04/24/25 09:16 Polyethylene Glycol 17 Gm Packet GT 05/19/25 10:29 17 gm QDAY KIT Administration Sodium Chloride 5 ml 04/14/25 14:01 04/24/25 14:40 Sodium Chloride 0.9% Flush 10 Ml Syringe IVP 05/13/25 21:59 5 ml Q8HR KIT Administration Sodium Hypochlorite 473 ml 04/14/25 21:00 04/24/25 09:19 Sod Hypochlorite 1/4 Str 473 Ml Btl IRRIG 05/14/25 20:59 1 applicatio BID KIT Administration Sodium Phosphate 133 ml 04/19/25 08:11 Sodium Phos,Elbert-Dibasic 133 Ml (Fleet) Enema Btl RC PRN PRN No BM Per Bowel Management Protocol Protocol Plan This 39-year-old male with a past medical history of 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, status post tracheostomy, mechanical ventilation, PEG tube, suprapubic catheter, right nephrostomy tube due to obstructive uropathy, and bilateral upper extremity DVT, presented to [facility] from in-house subacute for fever will be admitted for IV antibiotics for treatment of ventilator associated pneumonia. #Acute on chronic hypoxic resp failure on mech vent #Ventilator associated pneumonia #New onset fever Patient presenting with fevers noted at subacute facility, trach and PEG and high risk for aspiration secondary to being ventilated In the ED, patient has leukocytosis, elevated Pro-Chuck Chest x-ray shows bibasilar and right middle lobe pneumonia Urinalysis does show signs of infection with positive nitrites, leukocyte Esterase and +1 bacteria, suprapubic catheter Sputum culture growing ESBL Proteus mirabilis sensitive to meropenem. Blood cultures showing no growth. Urine cultures showed no growth. Patient has a chronic history of recurring pneumonia Patient had new fever with WBC elevation, reordered sputum/blood cultures, extended meropenum Changed antibiotics to Avycaz with ICU guidance, based on previous cultures. Procal trending down, lactate negative. Blood cultures negative, sputum culture grew Pseudomonas and Proteus. Plan: Avycaz 2.5gm IV q12hr Frequent suctioning and chest PT Monitor for fever spikes Robitussin, DuoNebs as needed #Phenytoin toxicity likely due to ?medication dosage pb #Hx of seizure, patient history #Anoxic brain injury post cardiac arrest in chronic vegetative state Phenytoin level elevated >40. Poison control was contacted and recommended to ask lab if a more specific measurement can be done to get a better idea of the blood levels. They also recommended to monitor for respiratory depression, coma, seizures, rash Patient history as stated. Patient is nonverbal at baseline and is a&o x0. Phenytoin reached therapeutic range, confirmed with poison control safe to resume at provider discretion. Plan: Continue with home medications Phenytoin 600mg GT BID Monitoring with BMP and phenytoin levels daily #Constipation, suspected ileus Patient had rapid response due to tachypnea, was found to have abdominal distention and tenderness, given morphine and KUB ordered. KUB showed significant stool burden despite patient having regular bowel movements. Patient had multiple BMs with improvement in abdominal distention and tenderness. Plan: As needed Fleet enemas Scheduled MiraLAX Monitor for bowel movements Ativan 0.5 mg GT every 6 hour #ELDON on CKD Stage 3B #Hyperosmolar hypernatremia and hyperchloremia #Hx Obstructive uropathy with neurogenic bladder with Rt nephrostomy tube+ suprapubic cath -Related to phenytoin toxicity vs Medications Patient has a nephrostomy tube ([facility] at [facility]) as well as suprapubic catheter Patient had elevated creatinine of 3.2 which is above his baseline of around 1.6. Was Given 1L bolus in ED. Sodium elevated at 154 possibly due to hx of obstructive uropathy in setting of pneumonia vs a low volume picture. Retroperitoneal ultrasound showed bilateral hydronephrosis. Urologist said that no acute intervention required at this point. Sodium improved 149. Creatinine improved to 1.7. Patient is making adequate urine. Sodium improved to 143, reduced IVF and free water flushes. Plan: Nephrology consulted, appreciate recommendations Increase free water flushes from 300 cc to 400 cc every 3 hours, will continue to monitor Renally dose medications Avoid nephrotoxic agents D5W at 70 ml/hr #Decubitus ulcer #History Osteomyelitis History of sacral wound culture grew ESBL Proteus on 01/08/2025 sensitive to Augmentin in the past Plan: Wound culture grew Proteus, continue meropenem 1,000 mg IV Q12 hr (04/14-04/21) Wound care referral #History of bilateral upper extremity DVT #History of factor V Leyden deficiency Patient with history of bilateral upper extremity DVT history of factor V Leyden deficiency, was swtiched to Eliquis 5mg GT BID on last discharge Plan: Continue Eliquis 5 mg GT bid #Anemia of chronic disease Patient's hemoglobin was 7.9 No signs of active bleeding. Plan: Continue to monitor #Adrenal insufficiency, suspected Patient takes 0.1 mg fludrocortisone at twice daily at home, suspect due to history of adrenal sufficiency although not clearly documented. Would explain patient's significant hypotension and continued soft blood pressure. Plan: Continuing home med: Fludrocortisone 0.1 mg GT daily Health management: Diet: Jevity Tube Feeds with water flushes DVT ppx: Eliquis 5 mg GT BID GI ppx: Protonix Lines: PIV, suprapubic catheter, right-sided nephrostomy tube, trach Code status: DNR Plan of care discussed with attending Dr. Olivo. James Crespo MD PGY?2 Attending Provider Attestation/Addendum I attest that I was physically present for the evaluation, physical examination, lab and imaging review of the patient with the residents. I discussed the case with the residents and agree with the findings and plans of care as documented above. At bedside today, patient appears comfortable. But had episodes of agitation, on and off throughout the day. Added Ativan as needed. Continues to be on IV antibiotics for acute on chronic hypoxic respiratory failure and ventilator associated pneumonia. Continues to be on phenytoin, has not reached therapeutic goals yet. Continues to be on free water flushes and D5W for hypernatremia. Kidney function have been improving. Carin Olivo MD
--- NOTE | 2025-04-24 17:17 | PD.NEPHPROG ---
Documentation for date of: 04/24/25 Subjective Subjective Interval history: Pt is seen and examined no overnight events Exam Vital Signs Temp Pulse Resp BP Pulse Ox O2 Del Method O2 Flow Rate 97.3 F 98 29 H 102/67 97 Mechanical Ventilation 40 04/24/25 12:00 04/24/25 14:28 04/24/25 12:00 04/24/25 14:28 04/24/25 12:20 04/24/25 12:00 04/24/25 12:00 FiO2 40 04/24/25 12:20 Narrative Exam eneral: No acute distress. Non-responsive Skin: Warm, dry, intact, no obvious rash. Head: Normocephalic, atraumatic. Eye: Normal conjunctiva, PERRL. Cardiovascular: Unable to appreciate heart sounds over lung sounds. Respiratory: Mechanical lung sounds on auscultation, respirations unlabored, no crackles, no wheezing. Gastrointestinal: Soft, nontender, non-distended. Extremities: No edema, no cyanosis, no clubbing. 2+ radial pulse bilaterally, 2+ pedal pulse bilaterally. Objective Labs 04/24/25 05:51 04/24/25 05:51 Labs: Laboratory Results - last 24 hr 04/24/25 05:51 WBC 17.2 H RBC 2.79 L Hgb 7.8 L Hct 25.3 L MCV 91 MCH 28.0 MCHC 30.8 L RDW Std Deviation 55.2 H Plt Count 505 H D Neut % (Auto) 52 Lymph % (Auto) 11 [place] % (Auto) 6 Eos % (Auto) 29 H Baso % (Auto) 1 Neut # (Auto) 9.0 H Lymph # (Auto) 1.9 [place] # (Auto) 1.1 H Eos # (Auto) 5.0 H Baso # (Auto) 0.1 Immature Gran # (Auto) 0.10 H Absolute Nucleated RBC 0.00 Immature Gran % 1 H Nucleated RBC % 0 Smear Path Review Sent to Pathologist Sodium 143 Potassium 4.0 Chloride 103 Carbon Dioxide 26.8 Anion Gap 13 BUN 48 H Creatinine 1.7 H Estim Creat Clear Calc 52.0 L eGFR 51 L BUN/Creatinine Ratio 28 H Glucose 130 H Calculated Osmolality 299 H Calcium 8.9 Corrected Calcium 9.1 Phosphorus 3.7 Magnesium 2.4 Total Bilirubin 0.2 L AST 51 H ALT 84 H Alkaline Phosphatase 430 H Total Protein 7.3 Albumin 3.7 Globulin 3.6 H Albumin/Globulin Ratio 1.0 L Phenytoin 7.1 ABG Interpretation ABG results: 04/15/25 04/19/25 04/21/25 10:20 07:08 08:36 ABG pH 7.32 L 7.42 7.40 ABG pCO2 49 H 39 44 ABG pO2 120 H 71 L 91 D ABG HCO3 25 26 27 H ABG O2 Saturation 99 H 96 98 ABG Base Excess -1 1 2 Assessment & Plan Assessment and plan (1) Acute kidney failure: Status: Acute Assessment and plan: Creat is improving and is decreased to 1.7 Na level is improving c/w supportive care (2) Ureteric obstruction: Status: Chronic
[2025-04-24] MEDS: MORPHINE SULF INJ 10 MG/ML VIAL IVP (17:29)
[2025-04-24 21:31] LABS: Sodium 140 mMol/L (136-145)
[2025-04-24] MEDS: COLLAGENASE OINT 30 GM TUBE TOP (21:57)
[2025-04-25] VITALS (14 sets, daily range): BP systolic 88–120; BP diastolic 62–80; PULSE 75–117; RESP 17–26; TEMP 36–36.3; O2SAT 97–100; BMI 27.0
[2025-04-25] MEDS: DEXTROSE 5%-LACTATED RINGERS 1,000 ML 50 ML IV (02:20)
[2025-04-25 04:05] LABS: Sodium 139 mMol/L (136-145)
[2025-04-25] MEDS: MIDODRINE 5 MG TABLET 10 MG GT ×3 (06:14→22:30)
[2025-04-25] MEDS: BACLOFEN 10 MG TABLET 5 MG GT ×3 (06:15→22:33)
--- NOTE | 2025-04-25 07:50 | ESPR_ITS ---
Documentation for date of: 04/25/25 Subjective Subjective Interval history: No acute overnight events. Patient had some agitation overnight and was given Ativan with good effect. He remains stable on the ventilator without new issues. His aunt (Next of kin) was at bedside and was updated on his condition. She confirmed that the family wishes to continue full treatment at this time. Patient may be discharged back to the subacute care as early as tomorrow. 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 ventilator. Appears intermittently agitated/distressed. HEENT: NC, AT. dry mucus membrane. EOMI, clear conjunctiva, oropharynx clear. NECK: Supple without lymphadenopathy. No stiffness or restricted ROM. HEART: sinus tachycardia with regular rhythm, normal S1/S2, no m/r/g LUNGS: coarse rhonchi with copious thick secretions. ABDOMEN: Soft, nontender, nondistended with good bowel sounds heard. PEG tube EXTREMITIES: Without cyanosis, clubbing or edema. 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 ventilator : Rt nephrotosmy tube in place Skin: Rash on the UE. Sacral wounds Grade III. No discoloration/edema/amputations. +Pedal pulses present B/L. Objective Labs 04/25/25 08:10 04/25/25 08:10 Labs: Laboratory Results - last 24 hr 04/24/25 04/24/25 04/25/25 05:51 20:45 02:55 Smear Path Review Sent to Pathologist Sodium 140 139 ABG Interpretation ABG results: 04/15/25 04/19/25 04/21/25 10:20 07:08 08:36 ABG pH 7.32 L 7.42 7.40 ABG pCO2 49 H 39 44 ABG pO2 120 H 71 L 91 D ABG HCO3 25 26 27 H ABG O2 Saturation 99 H 96 98 ABG Base Excess -1 1 2 Quality Measures Quality Measures VTE prophylaxis Assessment & Plan Assessment Current Active Medications: Generic Name Dose Route Start Last Admin Trade Name Freq PRN Reason Stop Dose Admin Acetaminophen 325 mg 04/13/25 21:45 04/21/25 12:55 Acetaminophen Lala 325 Mg/10 Ml Udc GT 05/13/25 21:44 325 mg Q4HR PRN Administration Pain 1-3 Or Fever > 101 Albuterol/Ipratropium 3 ml 04/18/25 09:53 04/20/25 12:49 Albuterol/Ipratropium (Duoneb) Rt Lala 3 Ml Nebu INH 05/18/25 09:52 3 ml Q2HR PRN Administration SHORTNESS OF BREATH OR WHEEZE Apixaban 5 mg 04/14/25 09:00 04/24/25 21:57 Apixaban 2.5 Mg Tablet GT 05/05/25 08:59 5 mg BID KIT Administration Artificial Tears 1 drop 04/14/25 09:00 04/24/25 21:57 Artificial Tears 225 Drop/15 Ml Btl BOTH EYES 05/14/25 08:59 1 drop BID KIT Administration Baclofen 5 mg 04/13/25 22:00 04/25/25 06:15 Baclofen 10 Mg Tablet GT 05/13/25 21:59 5 mg TID KIT Administration Bisacodyl 10 mg 04/19/25 14:32 Bisacodyl 10 Mg Supp [place] 05/19/25 08:10 Q72H PRN CONSTIPATION Protocol Carbamide Peroxide 5 drop 04/13/25 22:00 04/13/25 23:38 Carbamide Peroxide Otic Lala 15 Ml Btl BOTH EARS 05/13/25 21:59 5 drops Q61D KIT Administration Collagenase 0 gm 04/14/25 21:00 04/24/25 21:57 Collagenase Oint 30 Gm Tube TOP 05/14/25 20:59 1 applicatio HS KIT Administration Fludrocortisone Acetate 0.1 mg 04/14/25 09:00 04/24/25 09:15 Fludrocortisone Acetate 0.1 Mg Tablet GT 05/14/25 08:59 0.1 mg DAILY KIT Administration Guaifenesin 200 mg 04/18/25 10:32 04/24/25 14:28 Guaifenesin Syrup 200 Mg/10 Ml Udc GT 05/18/25 10:31 200 mg QID PRN Administration thickened sputum/COUGH Protocol Ceftazidime/Avibactam 2.5 gm/ 100 mls @ 50 mls/hr 04/22/25 12:15 04/24/25 21:58 Sodium Chloride IV 04/29/25 12:14 50 mls/hr Q12HR KIT Administration Dextrose/Lactated Ringer's 1,000 mls @ 50 mls/hr 04/24/25 21:44 04/25/25 02:20 D5-Lr IV 04/26/25 13:43 50 mls/hr .Q20H KIT Administration Lansoprazole 30 mg 04/16/25 09:00 04/24/25 09:15 Lansoprazole 30 Mg Tab.Nancy. GT 05/14/25 08:59 30 mg QDAY KIT Administration Levetiracetam 1,000 mg 04/13/25 22:00 04/24/25 21:58 [facility] 05/[facility] 21:59 1,000 mg BID KIT Administration Lorazepam 0.5 mg 04/24/25 18:00 04/25/25 06:15 Lorazepam 0.5 Mg Tablet 04/29/25 17:59 0.5 mg Q6HR KIT Administration Midodrine 10 mg 04/13/25 22:45 04/25/25 06:14 Midodrine 5 Mg Tablet 05/13/25 22:44 10 mg TID KIT Administration Morphine Sulfate 2 mg 04/24/25 13:04 Morphine Sulf Inj 10 Mg/Ml Vial IVP 04/29/25 13:03 Q4HR PRN Pain 4-10 or agitation Ondansetron HCl 4 mg 04/13/25 21:42 Ondansetron Inj 2 Mg/Ml Inj 2 Ml IVP 05/13/25 21:41 Q6H PRN NAUSEA OR VOMITING Protocol Phenytoin 600 mg 04/19/25 21:00 04/24/25 21:55 Phenytoin 100 Mg/4 Ml Udc 05/19/25 20:59 600 mg BID KIT Administration Polyethylene Glycol 17 gm 04/19/25 10:30 04/24/25 09:16 Polyethylene Glycol 17 Gm Packet GT 05/19/25 10:29 17 gm QDAY KIT Administration Sodium Chloride 5 ml 04/14/25 14:01 07/13/25 06:15 Sodium Chloride 0.9% Flush 10 Ml Syringe IVP 05/13/25 21:59 5 ml Q8HR KIT Administration Sodium Hypochlorite 473 ml 04/14/25 21:00 04/24/25 21:58 Sod Hypochlorite 1/4 Str 473 Ml Btl IRRIG 05/14/25 20:59 1 applicatio BID KIT Administration Sodium Phosphate 133 ml 04/19/25 08:11 Sodium Phos,Beckham-Dibasic 133 Ml (Fleet) Enema Btl RC PRN PRN No BM Per Bowel Management Protocol Protocol Plan This 39-year-old male with a past medical history of 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, status post tracheostomy, mechanical ventilation, PEG tube, suprapubic catheter, right nephrostomy tube due to obstructive uropathy, and bilateral upper extremity DVT, presented to [facility] from in- house subacute for fever will be admitted for IV antibiotics for treatment of ventilator associated pneumonia. #Acute on chronic hypoxic resp failure on mech vent #Ventilator associated pneumonia #New onset fever Patient presenting with fevers noted at subacute facility, trach and PEG and high risk for aspiration secondary to being ventilated In the ED, patient has leukocytosis, elevated Pro-Chuck Chest x-ray shows bibasilar and right middle lobe pneumonia Urinalysis does show signs of infection with positive nitrites, leukocyte Esterase and +1 bacteria, suprapubic catheter Sputum culture growing ESBL Proteus mirabilis sensitive to meropenem. Blood cultures showing no growth. Urine cultures showed no growth. Patient has a chronic history of recurring pneumonia Patient had new fever with WBC elevation, reordered sputum/blood cultures, extended meropenum Changed antibiotics to Avycaz with ICU guidance, based on previous cultures. Procal trending down, lactate negative. Blood cultures negative, sputum culture grew Pseudomonas and Proteus. Plan: Avycaz 2.5gm IV q12hr Frequent suctioning and chest PT Monitor for fever spikes Robitussin, DuoNebs as needed #Phenytoin toxicity likely due to ?medication dosage pb #Hx of seizure, patient history #Anoxic brain injury post cardiac arrest in chronic vegetative state Phenytoin level elevated >40. Poison control was contacted and recommended to ask lab if a more specific measurement can be done to get a better idea of the blood levels. They also recommended to monitor for respiratory depression, coma, seizures, rash Patient history as stated. Patient is nonverbal at baseline and is a&o x0. Phenytoin reached therapeutic range, confirmed with poison control safe to resume at provider discretion. Plan: Continue with home medications Phenytoin 600mg GT BID Monitoring with BMP and phenytoin levels daily #Constipation, suspected ileus Patient had rapid response due to tachypnea, was found to have abdominal distention and tenderness, given morphine and KUB ordered. KUB showed significant stool burden despite patient having regular bowel movements. Patient had multiple BMs with improvement in abdominal distention and tenderness. Plan: As needed Fleet enemas Scheduled MiraLAX Monitor for bowel movements Ativan 0.5 mg GT every 6 hour #ELDON on CKD Stage 3B #Hyperosmolar hypernatremia and hyperchloremia #Hx Obstructive uropathy with neurogenic bladder with Rt nephrostomy tube+ suprapubic cath -Related to phenytoin toxicity vs Medications Patient has a nephrostomy tube (placed at [facility]) as well as suprapubic catheter Patient had elevated creatinine of 3.2 which is above his baseline of around 1.6. Was Given 1L bolus in ED. Sodium elevated at 154 possibly due to hx of obstructive uropathy in setting of pneumonia vs a low volume picture. Retroperitoneal ultrasound showed bilateral hydronephrosis. Urologist said that no acute intervention required at this point. Sodium improved 149. Creatinine improved to 1.7. Patient is making adequate urine. Sodium improved to 143, reduced IVF and free water flushes. Plan: Nephrology consulted, appreciate recommendations Increase free water flushes from 300 cc to 400 cc every 3 hours, will continue to monitor Renally dose medications Avoid nephrotoxic agents D5W at 70 ml/hr #Decubitus ulcer #History Osteomyelitis History of sacral wound culture grew ESBL Proteus on 01/08/2025 sensitive to Augmentin in the past Plan: Wound culture grew Proteus, continue meropenem 1,000 mg IV Q12 hr (04/14-04/21) Wound care referral #History of bilateral upper extremity DVT #History of factor V Leyden deficiency Patient with history of bilateral upper extremity DVT history of factor V Leyden deficiency, was swtiched to Eliquis 5mg GT BID on last discharge Plan: Continue Eliquis 5 mg GT bid #Anemia of chronic disease Patient's hemoglobin was 7.9 No signs of active bleeding. Plan: Continue to monitor #Adrenal insufficiency, suspected Patient takes 0.1 mg fludrocortisone at twice daily at home, suspect due to history of adrenal sufficiency although not clearly documented. Would explain patient's significant hypotension and continued soft blood pressure. Plan: Continuing home med: Fludrocortisone 0.1 mg GT daily Health management: Diet: Jevity Tube Feeds with water flushes DVT ppx: Eliquis 5 mg GT BID GI ppx: Protonix Lines: PIV, suprapubic catheter, right-sided nephrostomy tube, trach Code status: DNR ----- Plan discussed with attending physician Dr. Geovani Truong MD PGY-1 Internal Medicine Attending Provider Attestation/Addendum I attest that I was physically present for the evaluation, physical examination, lab and imaging review of the patient with the residents. I discussed the case with the residents and agree with the findings and plans of care as documented above. At bedside today, patient appears comfortable but has been agitated overnight. Agitation has been well-controlled with Ativan as needed. Has been stable on mechanical ventilator, saturating well. Family at bedside updated about his current condition and further management plans. With ongoing agitation, we will obtain head CT to rule out any new pathology. Blood culture from 04/21/2025 has been negative. If remains stable, we will plan for discharge tomorrow. Carin Olivo MD
[2025-04-25 08:50] LABS: Basophils # (Auto) 0.1 Thou/mm3 (0.0-0.2); Basophils % (Auto) 1 % (0-2.5); Eosinophils # (Auto) 5.0 Thou/mm3 (0.0-0.5); Eosinophils % (Auto) 32 % (0-10); Hematocrit 26.4 % (41.0-53.0); Immature Granulocytes Auto 0.11 Thou/mm3 (0.00-0.00); Lymphocytes # (Auto) 1.8 Thou/mm3 (1.0-4.8); Lymphocytes % (Auto) 12 % (10-50); Mean Corpuscular HGB Conc 29.9 g/dl (31.0-37.0); Mean Corpuscular Hemoglobin 28.1 pg (25.0-35.0); Mean Corpuscular Volume 94 fL (80-100); Monocytes # (Auto) 1.3 Thou/mm3 (0.0-0.8); Monocytes % (Auto) 8 % (0-12); Neutrophils # (Auto) 7.3 Thou/mm3 (1.8-7.7); Neutrophils % (Auto) 47 % (37-80); Nucleated Red Blood Cell # 0.00 Thou/mm3 (0.00-0.00); Nucleated Red Blood Cell % 0 /100 WBC (0); Platelet Count 518 Thou/mm3 (140-440); RDW Standard Deviation 57.7 fL (35.1-43.9); Red Blood Count 2.81 Miln/mm3 (4.50-5.90); White Blood Count 15.6 Thou/mm3 (3.8-10.6)
[2025-04-25 08:53] LABS: Hemoglobin 7.9 g/dL (13.5-16.0)
[2025-04-25 09:12] LABS: Alanine Aminotransferase 61 U/L (10-49); Albumin, Serum 3.5 gm/dL (3.5-5.0); Albumin/Globulin Ratio 1.0 (1.2-2.2); Alkaline Phosphatase 396 U/L (46-116); Anion Gap 11 (7-16); Aspartate Amino Transferase 30 U/L (0-34); BUN/Creatinine Ratio 28 Ratio (12-20); Bilirubin,Total 0.2 mg/dL (0.3-1.2); Blood Urea Nitrogen 51 mg/dL (9-23); Calcium 9.0 mg/dL (8.3-10.6); Calcium (Corrected) 9.4 mg/dL (8.5-10.1); Carbon Dioxide 27.8 mMol/L (20.0-31.0); Chloride 106 mMol/L (98-107); Creatinine (Component) 1.8 mg/dL (0.6-1.3); Estimated Creatinine Clearance 49.1 mL/min (>60); Globulin 3.5 gm/dL (2.3-3.5); Glucose 116 mg/dL (74-106); Magnesium 2.0 mg/dL (1.6-2.6); Osmolality,Calculated 303 (275-295); Phosphorous 4.0 mg/dL (2.4-5.1); Potassium 4.7 mMol/L (3.4-5.1); Sodium 145 mMol/L (136-145); Total Protein 7.0 gm/dL (5.7-8.2); eGFR 48 See Note
[2025-04-25] MEDS: AVIBACTAM IV ×2 (09:31→22:48)
[2025-04-25] MEDS: Artificial Tears 225 DROP/15 ML BTL BOTH EYES ×2 (09:31→22:49)
[2025-04-25] MEDS: SOD HYPOCHLORITE 1/4 STR 473 ML BTL IRRIG ×2 (09:31→22:33)
[2025-04-25] MEDS: SODIUM CHLORIDE 0.9% IV ×2 (09:31→22:48)
[2025-04-25] MEDS: CEFTAZIDIME IV ×2 (09:31→22:48)
[2025-04-25] MEDS: levETIRAcetam LIQD 500 MG/5 ML UDC 1000 MG GT ×2 (09:32→22:29)
[2025-04-25] MEDS: POLYETHYLENE GLYCOL 17 GM PACKET GT (09:32)
[2025-04-25] MEDS: guaiFENesin SYRUP 200 MG/10 ML UDC GT ×2 (09:33→17:27)
[2025-04-25] MEDS: LANSOPRAZOLE 30 MG TAB.RAP.DR GT (09:33)
[2025-04-25] MEDS: APIXABAN 2.5 MG TABLET 5 MG GT ×2 (09:33→22:30)
[2025-04-25] MEDS: FLUDROCORTISONE ACETATE 0.1 MG TABLET GT (09:34)
--- NOTE | 2025-04-25 10:18 | XR_ITS ---
Examination: CT brain head without contrast. 2-D sagittal coronal reconstructions Date and time of exam:April 25, 2025, 1609 hrs. Indications: History brain injury, altered mental status today CTDI: vol (mGy):51.7 DLP: (mGycm):1147 Technique: Multiple CT axial sections of the brain have been obtained, 5 mm slice thickness. Contrast has not been administered. 2-D sagittal, coronal reconstructions have been obtained Low dose protocols were performed. One or more of the following dose reduction techniques were used; automated exposure control, adjustment of the mA and/or KV according to patient size, use of iterative reconstruction technique. Findings: Significant ventricular enlargement Prominent atrophy No acute hemorrhage No midline shift Bilateral chronic mastoiditis Significant left ethmoid sinusitis Impression: Significant ventricular enlargement. Prominent atrophy. No acute hemorrhage or mass effect. Brain MRI follow-up would best assess for ischemic or anoxic change
[2025-04-25] MEDS: MORPHINE SULF INJ 10 MG/ML VIAL 2 MG IVP ×2 (10:19→14:28)
[2025-04-25] MEDS: PHENYTOIN 100 MG CAPSR 600 MG PO ×2 (10:19→22:29)
[2025-04-25] MEDS: COLLAGENASE OINT 30 GM TUBE TOP (22:33)
[2025-04-26] VITALS: BP 97/73; PULSE 102; PULSE 110; RESP 17; TEMP 36.9; O2SAT 95
[2025-04-26] MEDS: MORPHINE SULF INJ 10 MG/ML VIAL 2 MG IVP (03:41)
[2025-04-26 04:00] VITALS: BP 83/63; PULSE 102; PULSE 106; RESP 18; TEMP 35.9; O2SAT 100
[2025-04-26 05:05] VITALS: BP 83/63; PULSE 102
[2025-04-26] MEDS: MIDODRINE 5 MG TABLET 10 MG GT (05:05)
[2025-04-26] MEDS: BACLOFEN 10 MG TABLET 5 MG GT (05:08)
[2025-04-26 06:00] VITALS: BMI 25.9
[2025-04-26 06:15] LABS: Basophils # (Auto) 0.1 Thou/mm3 (0.0-0.2); Basophils % (Auto) 1 % (0-2.5); Eosinophils # (Auto) 4.9 Thou/mm3 (0.0-0.5); Eosinophils % (Auto) 32 % (0-10); Hematocrit 26.5 % (41.0-53.0); Immature Granulocytes Auto 0.10 Thou/mm3 (0.00-0.00); Lymphocytes # (Auto) 1.5 Thou/mm3 (1.0-4.8); Lymphocytes % (Auto) 10 % (10-50); Mean Corpuscular HGB Conc 30.6 g/dl (31.0-37.0); Mean Corpuscular Hemoglobin 28.7 pg (25.0-35.0); Mean Corpuscular Volume 94 fL (80-100); Monocytes # (Auto) 1.2 Thou/mm3 (0.0-0.8); Monocytes % (Auto) 8 % (0-12); Neutrophils # (Auto) 7.4 Thou/mm3 (1.8-7.7); Neutrophils % (Auto) 49 % (37-80); Nucleated Red Blood Cell # 0.00 Thou/mm3 (0.00-0.00); Nucleated Red Blood Cell % 0 /100 WBC (0); Platelet Count 526 Thou/mm3 (140-440); RDW Standard Deviation 58.4 fL (35.1-43.9); Red Blood Count 2.82 Miln/mm3 (4.50-5.90); White Blood Count 15.1 Thou/mm3 (3.8-10.6)
[2025-04-26 06:27] LABS: Hemoglobin 8.1 g/dL (13.5-16.0)
[2025-04-26 06:36] LABS: Alanine Aminotransferase 53 U/L (10-49); Albumin, Serum 3.5 gm/dL (3.5-5.0); Albumin/Globulin Ratio 1.1 (1.2-2.2); Alkaline Phosphatase 398 U/L (46-116); Anion Gap 11 (7-16); Aspartate Amino Transferase 27 U/L (0-34); BUN/Creatinine Ratio 29 Ratio (12-20); Bilirubin,Total 0.2 mg/dL (0.3-1.2); Blood Urea Nitrogen 52 mg/dL (9-23); Calcium 8.8 mg/dL (8.3-10.6); Calcium (Corrected) 9.2 mg/dL (8.5-10.1); Carbon Dioxide 27.9 mMol/L (20.0-31.0); Chloride 107 mMol/L (98-107); Creatinine (Component) 1.8 mg/dL (0.6-1.3); Estimated Creatinine Clearance 45.2 mL/min (>60); Globulin 3.2 gm/dL (2.3-3.5); Glucose 132 mg/dL (74-106); Magnesium 2.0 mg/dL (1.6-2.6); Osmolality,Calculated 306 (275-295); Phenytoin (Dilantin) 14.0 mcg/mL; Phosphorous 3.3 mg/dL (2.4-5.1); Potassium 4.2 mMol/L (3.4-5.1); Sodium 146 mMol/L (136-145); Total Protein 6.7 gm/dL (5.7-8.2); eGFR 48 See Note
[2025-04-26 06:39] VITALS: PULSE 100; RESP 22; RESP 24; O2SAT 100
[2025-04-26 08:00] VITALS: BP 93/68; PULSE 112; PULSE 97; RESP 16; RESP 20; TEMP 36; O2SAT 100
[2025-04-26] MEDS: Artificial Tears 225 DROP/15 ML BTL BOTH EYES (08:35)
[2025-04-26] MEDS: LANSOPRAZOLE 30 MG TAB.RAP.DR GT (08:35)
[2025-04-26] MEDS: levETIRAcetam LIQD 500 MG/5 ML UDC 1000 MG GT (08:35)
[2025-04-26] MEDS: POLYETHYLENE GLYCOL 17 GM PACKET GT (08:35)
[2025-04-26] MEDS: guaiFENesin SYRUP 200 MG/10 ML UDC GT (08:35)
[2025-04-26] MEDS: FLUDROCORTISONE ACETATE 0.1 MG TABLET GT (08:35)
[2025-04-26] MEDS: APIXABAN 2.5 MG TABLET 5 MG GT (08:35)
[2025-04-26] MEDS: RINGERS LACTATED 1000 ML 1,000 ML 999 ML IV (08:35)
[2025-04-26] MEDS: AVIBACTAM IV (08:36)
[2025-04-26] MEDS: CEFTAZIDIME IV (08:36)
[2025-04-26] MEDS: SODIUM CHLORIDE 0.9% IV (08:36)
[2025-04-26] MEDS: SOD HYPOCHLORITE 1/4 STR 473 ML BTL IRRIG (08:37)
[2025-04-26 09:23] LABS: Phenytoin (Dilantin) 11.9 mcg/mL
--- NOTE | 2025-04-26 10:25 | ESPR_ITS ---
Documentation for date of: 04/26/25 Subjective Subjective Interval history: Overnight events: No acute events. Patient was seen and examined at bedside. AM vitals and labs reviewed. WBC 15.1, sodium 146, BUN 52, creatinine 1.8, GFR 48. Ins/outs 2550/3450. CT head was ordered yesterday for altered mental status, which showed significant ventricular enlargement, prominent atrophy, no acute hemorrhage or mass effect, and noted brain MRI follow-up with best assess for ischemic or anoxic changes. Patient is currently on Ceftazidime for PNA. The patient is pending discharge to subacute care, possibly today. Will recommend continuing water flushes with discharge. During today's visit, the patient continued to be nonresponsive. Patient is minimally arousable to auditory stimulus. Trach tube in place with mechanical ventilation at PEEP 5.0 and FiO2 35%. Review of systems otherwise negative except for what is mentioned above. Exam Vital Signs Temp Pulse Resp BP Pulse Ox O2 Del Method O2 Flow Rate 96.8 F 97 16 93/68 100 Mechanical Ventilation 40 04/26/25 08:00 04/26/25 08:00 04/26/25 08:00 04/26/25 08:00 04/26/25 08:00 04/26/25 04:00 04/26/25 04:00 FiO2 35 04/26/25 06:39 Narrative Exam Physical Exam: General: No acute distress. Skin: Warm, dry, intact, no obvious rash. Head: Normocephalic, atraumatic. Eye: Normal conjunctiva, PERRL. Cardiovascular: Regular rate and rhythm, no murmur, +S1/S2. Respiratory: Lungs are clear to auscultation, respirations unlabored, no crackles, no wheezing. Extremities: No edema, no cyanosis, no clubbing. 2+ radial pulse bilaterally, 2+ pedal pulse bilaterally. Objective Labs 04/26/25 05:43 04/26/25 05:43 Labs: Laboratory Results - last 24 hr 04/26/25 04/26/25 05:43 08:47 WBC 15.1 H RBC 2.82 L Hgb 8.1 L Hct 26.5 L MCV 94 MCH 28.7 MCHC 30.6 L RDW Std Deviation 58.4 H Plt Count 526 H Neut % (Auto) 49 Lymph % (Auto) 10 [place] % (Auto) 8 Eos % (Auto) 32 H Baso % (Auto) 1 Neut # (Auto) 7.4 Lymph # (Auto) 1.5 [place] # (Auto) 1.2 H Eos # (Auto) 4.9 H Baso # (Auto) 0.1 Immature Gran # (Auto) 0.10 H Absolute Nucleated RBC 0.00 Immature Gran % 1 H Nucleated RBC % 0 Sodium 146 H Potassium 4.2 D Chloride 107 Carbon Dioxide 27.9 Anion Gap 11 BUN 52 H Creatinine 1.8 H Estim Creat Clear Calc 45.2 L eGFR 48 L BUN/Creatinine Ratio 29 H Glucose 132 H Calculated Osmolality 306 H Calcium 8.8 Corrected Calcium 9.2 Phosphorus 3.3 Magnesium 2.0 Total Bilirubin 0.2 L AST 27 ALT 53 H Alkaline Phosphatase 398 H Total Protein 6.7 Albumin 3.5 Globulin 3.2 Albumin/Globulin Ratio 1.1 L Phenytoin 14.0 11.9 ABG Interpretation ABG results: 04/15/25 04/19/25 04/21/25 10:20 07:08 08:36 ABG pH 7.32 L 7.42 7.40 ABG pCO2 49 H 39 44 ABG pO2 120 H 71 L 91 D ABG HCO3 25 26 27 H ABG O2 Saturation 99 H 96 98 ABG Base Excess -1 1 2 Quality Measures Quality Measures VTE prophylaxis Assessment & Plan Assessment Current Active Medications: Generic Name Dose Route Start Last Admin Trade Name Freq PRN Reason Stop Dose Admin Acetaminophen 325 mg 04/13/25 21:45 04/21/25 12:55 Acetaminophen Lala 325 Mg/10 Ml Udc GT 05/13/25 21:44 325 mg Q4HR PRN Administration Pain 1-3 Or Fever > 101 Albuterol/Ipratropium 3 ml 04/18/25 09:53 04/20/25 12:49 Albuterol/Ipratropium (Duoneb) Rt Lala 3 Ml Nebu INH 05/18/25 09:52 3 ml Q2HR PRN Administration SHORTNESS OF BREATH OR WHEEZE Apixaban 5 mg 04/14/25 09:00 04/26/25 08:35 Apixaban 2.5 Mg Tablet GT 05/05/25 08:59 5 mg BID KIT Administration Artificial Tears 1 drop 04/14/25 09:00 04/26/25 08:35 Artificial Tears 225 Drop/15 Ml Btl BOTH EYES 05/14/25 08:59 1 drop BID KIT Administration Baclofen 5 mg 04/13/25 22:00 04/26/25 05:08 Baclofen 10 Mg Tablet GT 05/13/25 21:59 5 mg TID KIT Administration Bisacodyl 10 mg 04/19/25 14:32 Bisacodyl 10 Mg Supp WI 05/19/25 08:10 Q72H PRN CONSTIPATION Protocol Carbamide Peroxide 5 drop 04/13/25 22:00 04/13/25 23:38 Carbamide Peroxide Otic Lala 15 Ml Btl BOTH EARS 05/13/25 21:59 5 drops Q61D KIT Administration Collagenase 0 gm 04/14/25 21:00 04/25/25 22:33 Collagenase Oint 30 Gm Tube TOP 05/14/25 20:59 1 applicatio HS KIT Administration Fludrocortisone Acetate 0.1 mg 04/14/25 09:00 04/26/25 08:35 Fludrocortisone Acetate 0.1 Mg Tablet GT 05/14/25 08:59 0.1 mg DAILY KIT Administration Guaifenesin 200 mg 04/18/25 10:32 04/26/25 08:35 Guaifenesin Syrup 200 Mg/10 Ml Udc GT 05/18/25 10:31 200 mg QID PRN Administration thickened sputum/COUGH Protocol Ceftazidime/Avibactam 2.5 gm/ 100 mls @ 50 mls/hr 04/22/25 12:15 04/26/25 08:36 Sodium Chloride IV 04/29/25 12:14 50 mls/hr Q12HR KIT Administration Lansoprazole 30 mg 04/16/25 09:00 04/26/25 08:35 Lansoprazole 30 Mg Tab.Rap.Dr GT 05/14/25 08:59 30 mg QDAY KIT Administration Levetiracetam 1,000 mg 04/13/25 22:00 04/26/25 08:35 Levetiracetam Liqd 500 Mg/5 Ml Udc GT 05/13/25 21:59 1,000 mg BID KIT Administration Lorazepam 0.5 mg 04/24/25 18:00 04/26/25 05:05 Lorazepam 0.5 Mg Tablet GT 04/29/25 17:59 0.5 mg Q6HR KIT Administration Midodrine 10 mg 04/13/25 22:45 04/26/25 05:05 Midodrine 5 Mg Tablet GT 05/13/25 22:44 10 mg TID KIT Administration Morphine Sulfate 2 mg 04/25/25 13:50 04/26/25 03:41 Morphine Sulf Inj 10 Mg/Ml Vial IVP 04/29/25 13:03 2 mg Q4HR PRN Administration Pain 7-10 Ondansetron HCl 4 mg 04/13/25 21:42 Ondansetron Inj 2 Mg/Ml Inj 2 Ml IVP 05/13/25 21:41 Q6H PRN NAUSEA OR VOMITING Protocol Phenytoin 600 mg 04/19/25 21:00 04/25/25 10:17 Phenytoin 100 Mg/4 Ml Udc GT 05/19/25 20:59 Not Given BID KIT Phenytoin 600 mg 04/26/25 09:45 Phenytoin 100 Mg Capsr PO 04/26/25 21:01 BID KIT Polyethylene Glycol 17 gm 04/19/25 10:30 04/26/25 08:35 Polyethylene Glycol 17 Gm Packet GT 05/19/25 10:29 17 gm QDAY KIT Administration Sodium Chloride 5 ml 04/14/25 14:01 04/26/25 05:13 Sodium Chloride 0.9% Flush 10 Ml Syringe IVP 05/13/25 21:59 5 ml Q8HR KIT Administration Sodium Hypochlorite 473 ml 04/14/25 21:00 04/26/25 08:37 Sod Hypochlorite 1/4 Str 473 Ml Btl IRRIG 05/14/25 20:59 1 applicatio BID KIT Administration Sodium Phosphate 133 ml 04/19/25 08:11 Sodium Phos,[place]-Dibasic 133 Ml (Fleet) Enema Btl RC PRN PRN No BM Per Bowel Management Protocol Protocol Tramadol HCl 50 mg 04/25/25 13:45 Tramadol Hcl 50 Mg Tablet PO 04/30/25 13:44 Q6HR PRN PAIN 4-6 Plan Mr. Smith is a 39 year old male with a relevant medical history of anoxic brain injury, s/p tracheotomy, mechanical ventilation, and right nephrostomy tube for obstructive uropathy, who presented with a fever. The patient was admitted for use of IV antibiotics in suspicion of ventilator associated pneumonia. Nephrology was consulted due to concerns of ELDON on CKD IV. Pending discharge to subacute care on 04/26. #ELDON on CKD IIIB #Obstructive uropathy Patient was admitted with BUN of 102, Cr 3.4, and eGFR of 22. Given the patient's prior history of obstructive uropathy, ELDON may be due to ATN 2/2 drops in BP as recorded in EMR prior to admission to [facility]. - Renal function lab values improving over time. - Renally adjust medications. - IV fluid resuscitation as tolerated. #Hypernatremia #Suspected post ATN diuresis Patient was admitted with elevated sodium level of 154. Sodium continued to be elevated but improved with IV hydration. Serum sodium decreased to within normal limits on 04/18/25. Sodium re-elevated on 04/21/25 to 149. Urine output throughout hospital stay ranges from 1400mL to 4700mL, with only 2 days of urine >4L. Currently suspecting post ATN diuresis, a condition where there is marked diuresis during the recovery from damage to the kidneys as it is thought that the recovering renal tubules are less efficient at reabsorbing fluids. Diabetes insipidus can present similarly, but it will have a consistent urine output >4L, low urine sodium, low urine osmolality, and high plasma osmolality. Current suspicion for diabetes insipidus low based on clinical picture. - Will hold off on desmopressin for now. - Recommend urine sodium, urine osmolality, and plasma osmolality if concern for diabetes insipidus persists. - Urine osmolality sent out on 04/15/25 resulted as 433. - Urine osmolality expected to be less than serum osmolality in diabetes insipidus. - Urine sodium 04/15 within normal limits, expected to be low in diabetes insipidus. - Continue 400mL flushes with tube feeds for adequate hydration. Patient was discussed with the Nephrology attending, Dr. Duran. Thank you for allowing us to participate in the care of this patient. Salazar Smalls, PGY-1 Attending Provider Attestation/Addendum with assessment and plan and finding of resident. Seen and examined. Labs are reviewed Kevin Duran MD
--- NOTE | 2025-04-26 10:33 | PC.SS ---
SS spoke to Sridevi with [facility], new PASRR needed due to being a new admit.
--- NOTE | 2025-04-26 10:45 | PC.SS ---
File exchanged PASRR to MARY MAJOR
[2025-04-26] MEDS: PHENYTOIN 100 MG CAPSR 600 MG PO (11:03)
--- NOTE | 2025-04-26 11:14 | PC.SS ---
SS spoke to pt Aunt Dee to inform her of pt DC back to [facility] today. SS spoke to GERMAIN Vera and informed her of file exchange PASRR. SS updated, internal grinding machine operatorClaudia of pt packet prepared for transport back to [facility]. Per Claudia, she will arrange with RT and RN to get pt down there.
[2025-04-26 12:00] VITALS: PULSE 115
--- NOTE | 2025-04-26 12:58 | PC.NURSE ---
Report given to АЛЕКСАНДР Larson in [facility]. PT transported with RT via bed. PT family updated with move. Packet given to АЛЕКСАНДР
== END 2025-04-26 12:22 | disposition skilled nursing facility (03) | DRG 207 ==
LOC: SERX 15:13 → SERHOLD 22:08 → S2NX 04-14 11:11
PROVIDERS: Student in an Organized Health Care Education/Training Program; Admitting Provider Internal Medicine; Emergency Provider Emergency Medicine; Visit Provider Student in an Organized Health Care Education/Training Program
DX: J95.851 Ventilator associated pneumonia (principal); J96.21 Acute and chronic respiratory failure with hypoxia; N18.4 Chronic kidney disease, stage 4 (severe); N17.9 Acute kidney failure, unspecified; E27.40 Unspecified adrenocortical insufficiency; D68.51 Activated protein C resistance; E87.1 Hypo-osmolality and hyponatremia; G93.1 Anoxic brain damage, not elsewhere classified; N13.1 Hydronephrosis with ureteral stricture, not elsewhere classified; R40.3 Persistent vegetative state; Z93.1 Gastrostomy status; Z93.0 Tracheostomy status; Z93.6 Other artificial openings of urinary tract status; Y84.8 Other medical procedures as the cause of abnormal reaction of the patient, or of later complication, without mention of misadventure at the time of the procedure; N13.9 Obstructive and reflux uropathy, unspecified; D63.1 Anemia in chronic kidney disease; L89.159 Pressure ulcer of sacral region, unspecified stage; Z86.718 Personal history of other venous thrombosis and embolism; Z66 Do not resuscitate; R56.9 Unspecified convulsions; B96.4 Proteus (mirabilis) (morganii) as the cause of diseases classified elsewhere; E87.8 Other disorders of electrolyte and fluid balance, not elsewhere classified; K56.41 Fecal impaction; N31.9 Neuromuscular dysfunction of bladder, unspecified; L98.429 Non-pressure chronic ulcer of back with unspecified severity; Z79.01 Long term (current) use of anticoagulants; Z79.52 Long term (current) use of systemic steroids
CPT/HCPCS: 36415; 36600; 70450; 71045; 74018; 76705; 76770; 80048; 80053; 80185; 80202; 81001; 82436; 82570; 82803; 82977; 83605; 83690; 83735; 83880; 83935; 84100; 84133; 84145; 84295; 84300; 84484; 85025; 85610; 85730; 86331; 86635; 87040; 87077; 87081; 87086; 87186; 87205; 87502; 87634; 87811; 93005; 94003; 94640; 94667; 96361; 96365; 96366; 96367; 96375; 99285; A4216; A4314; A9270; J0714; J1200; J2060; J2185; J2270; J2470; J2543; J3372; J3373; J7030; J7050; J7060; J7070; J7120; J7121

== ENCOUNTER 2025-07-08 12:00 | Inpatient (IN) | payer MEDICARE, MEDICAID, SELFPAY ==
[2025-07-08] VITALS (15 sets, daily range): BP systolic 77–132; BP diastolic 54–85; PULSE 104–124; RESP 23–46; TEMP 36.3–38.5; O2SAT 97–100; BMI 25.0
--- NOTE | 2025-07-08 12:30 | PC.NURSE ---
pt sent over with subacute unit due to fever since last night, even after Tylenol given, pt was also started on Rocephin iv yesterday. pt was given Tylenol at 9 and pt temp still 101.3 at 1045. pt breathing also labored even on vent/trach. blood culture and labs done yesterday as well. pt is nonverbal and contracted all extremities. pt placed on monitor and rectal temp prob placed and temp is 101.1, Hr 122bpm, and resp rate 40, sepsis called.
--- NOTE | 2025-07-08 12:32 | PC.NURSE ---
placed pt on waffle mattress due to stage 4 decubitis ulcers to bilateral hips and coccyx area per subacute unit.
--- NOTE | 2025-07-08 12:45 | PC.NURSE ---
md aware of high temp and increased wob. pending orders.
--- NOTE | 2025-07-08 12:50 | EKG_ITS ---
[facility] Test Date: 2025-07-08 Pat Name: KETTY BATES Department: Room: - Gender: Male Experience Planning Strategist: : 1985 Requested By: Marsha Fulton Order Number: [id number] Reading MD: Marsha Fulton Measurements Intervals [place] Rate: 120 P: 80 LA: 137 QRS: 92 QRSD: 70 T: 77 QT: 303 QTc: 429 Interpretive Statements SINUS TACHYCARDIA BORDERLINE RIGHT AXIS DEVIATION [QRS AXIS > 90] LOW QRS VOLTAGE IN PRECORDIAL LEADS [QRS DEFLECTION < 1.0 mV IN CHEST LEADS] ANTEROSEPTAL MYOCARDIAL INFARCTION , OF INDETERMINATE AGE [40+ ms Q WAVE IN V1-V4] Compared to ECG 04/16/2025 14:54:25 Indeterminate axis no longer present Myocardial infarct finding still present /store/S0/[id number]
[2025-07-08 13:09] LABS: Collection Type, Urine Catheter; Lactate (Lactic Acid) 1.7 mMol/L (0.4-2.0); Squamous Epithelial Cell,Urine 0 /hpf (0-5)
--- NOTE | 2025-07-08 13:09 | PD.EDFEVER ---
ED Fever RME/HPI General Chief Complaint: Fever Stated Complaint: TRANSFER FROM SUBACUTE Time Seen by Provider: 07/08/25 12:02 Arrival date/time: 07/08/25 12:00 Limitations: other (patient baseline aphasia, doesnt follow commands 2/2 prior anoxic brain injury ) RME / HPI RME / HPI Narrative: 39 year old male with history of 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, s/p tracheostomy with mechanical ventilation dependance, s/p PEG tube, s/p suprapubic catheter, right nephrostomy tube due to obstructive uropathy, bilateral upper extremity DVT, Factor V Leiden deficiency presents to the ED from the subacute unit within this facility for evaluation of persistent fevers that began yesterday. Per RN, patient received a dose of IV Rocephin yesterday. Noted temperature this morning to be 101.2F given Tylenol, and advised to bring to the ED for further evalation and treatment. Related Data Previous Rx's ?Medication ?Instructions ?Recorded Fludrocortisone 0.1 mg G-tube DAILY 30 days 06/01/25 Non Formulary Medication 2 ea G-tube BID PRN Pain 30 days 06/01/25 Non Formulary Medication 250 ea G-tube BID PRN Hiccups 30 06/01/25 days acetaminophen 325 mg tablet 650 mg (2 x 325 mg) G-tube Q6HR 06/01/25 PRN Pain 30 days #2 tabs ascorbic acid (vitamin C) 500 mg 500 mg G-tube BID 384 days #385 06/01/25 tablet tabs baclofen 10 mg tablet 5 mg (1/2 x 10 mg) G-tube TID 30 06/01/25 days #192 tabs lansoprazole 30 mg capsule,delayed 30 mg G-tube QDAY GERD 30 days 06/01/25 release #383 caps levetiracetam 100 mg/mL oral 1,000 mg (10 mL) G-tube BID 30 06/01/25 solution days #4,130 mL metoclopramide HCl 5 mg tablet 5 mg G-tube TID 30 days #384 tabs 06/01/25 midodrine 10 mg tablet 10 mg G-tube TID 30 days #384 tabs 06/01/25 [id number] 1 ea G-tube QDAY 30 days #383 tabs 06/01/25 fumarate 7.5 mg-folic acid 400 mcg tablet phenytoin 50 mg chewable tablet 300 mg (6 x 50 mg) G-tube DAILY 1 06/01/25 day #2,370 tabs lorazepam 0.5 mg tablet 0.5 mg G-tube Q6HR PRN Increased 06/26/25 RR 365 days #7 tabs lorazepam 2 mg/mL injection 2 mg IM [id number] PRN Seizure 06/26/25 solution Activity 365 days #1 mL apixaban 5 mg tablet (Eliquis) 5 mg G-tube BID anticoagulant 412 07/10/25 days #413 tabs piperacillin-tazobactam 3.375 gram 3.375 g IV Q6H 10 days 07/10/25 intravenous solution albuterol sulfate 2.5 mg/3 mL 2.5 mg (3 mL) INH Q4HRRT PRN SOB 07/11/25 (0.083 %) solution for nebulization or wheezing 30 days #180 mL bisacodyl 10 mg rectal suppository 10 mg MD PRN PRN No BM Per Bowel 07/11/25 (Dulcolax (bisacodyl)) Management Protocol 30 days #100 ea ipratropium 0.5 mg-albuterol 3 mg 3 ml INH Q6HRRT 30 days #90 mL 07/11/25 (2.5 mg base)/3 mL nebulization soln magnesium hydroxide 400 mg/5 mL 30 ml G-tube PRN PRN Constipation 07/11/25 oral suspension (Milk of Magnesia) 30 days #3,000 mL polyethylene glycol 3350 17 gram 17 g G-tube PRN PRN No BM Per 07/11/25 oral powder packet Bowel Management Protocol 30 days #30 ea sodium phosphates 19 gram-7 133 ml MD PRN PRN No BM Per Bowel 07/11/25 gram/118 mL enema (Fleet Enema) Management Protocol 30 days #532 mL Piperacill/Tazobactam 3.375 mg 100 mls/hr IV Q6HR 9 days #31 ea 07/13/25 [Zosyn 3.375 mg] 3.375 gm artificial 1 drp Both eyes BID 30 days #15 mL 07/13/25 tears([id number]-ioerigo) 0.1 %-0.3 %-0.2 % eye drops (GenTeal Tears Moderate) carbamide peroxide 6.5 % ear drops 5 drp otic (ear) Q61D 281 days #15 07/13/25 (Ear Wax Removal Drops) mL carbamide peroxide 6.5 % ear drops 5 drp otic (ear) Q61D 281 days #15 07/13/25 (Ear Wax Removal Drops) mL carbamide peroxide 6.5 % ear drops 5 drp otic (ear) Q61D 282 days #15 07/13/25 (Ear Wax Removal Drops) mL carbamide peroxide 6.5 % ear drops 5 drp otic (ear) Q61D 282 days #15 07/13/25 (Ear Wax Removal Drops) mL carbamide peroxide 6.5 % ear drops 5 drp otic (ear) Q61D 283 days #15 07/13/25 (Ear Wax Removal Drops) mL carbamide peroxide 6.5 % ear drops 5 drp otic (ear) Q61D 283 days #15 07/13/25 (Ear Wax Removal Drops) mL carbamide peroxide 6.5 % ear drops 5 drp otic (ear) Q61D 284 days #15 07/13/25 (Ear Wax Removal Drops) mL carbamide peroxide 6.5 % ear drops 5 drp otic (ear) Q61D 284 days #07/13/25 (Ear Wax Removal Drops) mL Allergies Allergy/AdvReac Type Severity Reaction Status Date / Time No Known Allergies Allergy Verified 07/08/25 12:29 Review of Systems Review of Systems ROS Unobtainable: unobtainable due to medical condition Past Medical History Past Medical History NEUROLOGIC: Positive Neurological Disorders (ANOXIC BRAIN DAMAGE) and Seizures CARDIAC: Positive Cardiac Disorders (heart failure), Deep Vein Thrombosis (BILATERAL UPPER EXREMITIES) and Hypertension GASTROINTESTINAL: Positive Gastrointestinal Disorders (UMBILICAL HERNIA) and Gastroesophageal Reflux Disease GENITOURINARY: Positive Renal Disease Surgical History SURGICAL: Positive Gastrostomy Social History SMOKING STATUS: Never smoker SECOND HAND EXPOSURE: No Physical Exam General Limitations: other (patient baseline aphasia, doesnt follow commands 2/2 prior anoxic brain injury ) General appearance: alert and other (Chronically ill appearing with acute decompensation ) Head Head exam: atraumatic Eye Eye exam: Present normal appearance, PERRL and EOMI ENT ENT exam: Present normal exam, normal oropharynx and mucous membranes moist Neck Neck exam: Present other (s/p tracheostomy ) Chest Chest inspection: Present normal inspection and symmetric chest wall rise Respiratory Respiratory exam: Present other (coarse breath sounds b/l ) Cardiovascular Cardiovascular exam: Present normal rhythm, tachycardia and normal heart sounds Abdominal Exam Abdominal exam: Present soft and other (PEG tube in place ); Absent distention, tenderness or guarding Extremities Exam Extremities exam: Present other (contracture of extremities) Neurological Exam Neurological exam: Present other (Nonverbal at baseline , does not move extremities ) Skin Skin exam: Present warm, dry, intact, normal color and diaphoresis ED Exam General Limitations: Present other (patient baseline aphasia, doesnt follow commands 2/2 prior anoxic brain injury ) General appearance: Present alert and other (Chronically ill appearing with acute decompensation ) Head Head exam: Present atraumatic Eye Eye exam: Present normal appearance, PERRL and EOMI ENT ENT exam: Present normal exam, normal oropharynx and mucous membranes moist Neck Neck exam: Present other (s/p tracheostomy ) Chest Chest inspection: Present normal inspection and symmetric chest wall rise Respiratory Respiratory exam: Present other (coarse breath sounds b/l ) Cardiovascular Cardiovascular exam: Present normal rhythm, tachycardia and normal heart sounds Abdominal Exam Abdominal exam: Present soft and other (PEG tube in place ); Absent distention, tenderness or guarding Extremities Exam Extremities exam: Present other (contracture of extremities) Neurological Exam Neurological exam: Present other (Nonverbal at baseline , does not move extremities ) Skin Skin exam: Present warm, dry, intact, normal color and diaphoresis Course Quality Measures Current suspected stage: sepsis Possible source: pulmonary Blood cultures ordered: completed in ED Antibiotic ordered: Yes Pertinent labs: 07/08/25 12:40 Lactic Acid 1.7 mMol/L (0.4-2.0) Procalcitonin 1.53 H ng/ml (0.0-0.49) sepsis Orders Category Date Time Status Bedside COVID-19 Antigen Test NOW Care 07/08/25 14:53 Completed Engine Repairer Production Q4H Care 07/08/25 12:50 Completed Continuous Pulse Oximetry STAT Care 07/08/25 12:50 Completed EKG (ED ONLY) *Do not use* NOW Care 07/08/25 12:50 Completed Insert IV NOW Care 07/08/25 12:50 Completed NPO STAT Care 07/08/25 12:50 Completed Strict Intake and Output Routine Care 07/08/25 12:50 Ordered EKG (ED Only) Stat Exams 07/08/25 12:50 Draft XR chest 1V Stat Exams 07/08/25 13:55 Completed Arterial Blood Gas Stat Lab 07/08/25 13:30 Completed B-Type Natriuretic Peptide Stat Lab 07/08/25 12:40 Completed Blood Culture (Lab) Stat Lab 07/08/25 15:03 Results CBC Stat Lab 07/08/25 12:40 Completed Comprehensive Metabolic Panel Stat Lab 07/08/25 12:40 Completed Influenza A & B Rapid Panel Stat Lab 07/08/25 15:35 Completed LDH (Lactate Dehydrogenase) Stat Lab 07/08/25 12:40 Completed Lactate (Lactic Acid) Stat Lab 07/08/25 12:40 Completed Lipase Stat Lab 07/08/25 12:40 Completed Magnesium Stat Lab 07/08/25 12:40 Completed Partial Thromboplastin Time Stat Lab 07/08/25 12:40 Completed Phosphorous Stat Lab 07/08/25 12:40 Completed Procalcitonin Stat Lab 07/08/25 12:40 Completed Prothrombin Time with INR Stat Lab 07/08/25 12:40 Completed Troponin I Stat Lab 07/08/25 12:40 Completed Urinalysis, C/S if Indicated Stat Lab 07/08/25 12:40 Completed Acetaminophen Ivpb [Ofirmev Inj] Med 07/08/25 14:52 Discontinued 1,000 mg in 100 ml IV STAT Piper/Tazo Inj [Zosyn Inj] 4.5 gm Med 07/08/25 14:53 Discontinued Sodium Chloride 0.9% (Pop) [NS 0.9% mini bag] 100 ml IV STAT Ringers Lactated 1000 ml [Lactated Ringers] 1,000 ml Med 07/08/25 14:53 Discontinued IV 999 mls/hr Vancomycin Pharmacy to Dose Med 07/08/25 14:53 Discontinued 1 each IV STAT PRN Vancomycin/Ns 1 gm Ivpb 200 ml Med 07/08/25 15:00 Discontinued IV X1 Oxygen Delivery NOW RT 07/08/25 12:50 Completed Vital Signs Vital signs: Vital Signs Pulse Rate 121 H 07/08/25 12:01 Pulse Oximetry (%) 97 07/08/25 12:01 Fever MDM Narrative MDM Narrative:: Patient is a 39-year-old male is in the emergency department sent over from [facility] for persistent fevers for over a day. Vital signs and exam as listed. Patient presented with meeting sepsis criteria. Ordered sepsis order set. Concern for pneumonia, urinary tract infection among others. Patient is behaving at his baseline less likely meningitis encephalitis acute space-occupying injury. Labs with evidence of leukocytosis 24.6, hemoglobin is 10, this is at patient's baseline. VBG pH is 7.4, no acute electrolyte abnormalities. Patient creatinine is 2.1, this is the patient's baseline. Lactic acid normal. No transaminitis troponin elevated BNP normal. Procalcitonin is 1.53. Blood cultures and antibiotics were given. Patient is leukoesterase positive no bacteria. Chest x-ray with evidence of pneumonia. Patient has remained hemodynamically stable not distressed will discharge back to [facility] with management of pneumonia. Likely ventilator associated pneumonia 15:00p I spoke with patients PCP Dr. Silverio who recommended admission. Post sepsis intervention reassessment, patient HD stable, no increased vent settings, warm extremities 15:03p I spoke with hospitalist team C regarding admission. Patient data External records reviewed:: [facility] previous records Clinical information provided by:: patient Social determinants that could affect healthcare access:: mental health Patient has the following chronic illnesses:: See MDM How is presenting disease/condition affected by chronic disease/condition?: exacerbated by Evaluation data The following diagnostics were reviewed and interpreted by me:: lab results, radiology exam(s) and EKG tracing(s) Lab and/or radiology exams considered but not ordered:: None Interpretation Summary: See MDM Medications / Prescriptions Medications or Prescriptions considered but not ordered:: None Medication administrations:: Medication Administration History Discontinued Medications Acetaminophen (Acetaminophen 325 Mg Tablet) 1,000 mg PO Q6H PRN PRN Reason: Fever >99 Stop: 08/07/25 17:02 Acetaminophen (Acetaminophen 500 Mg Tablet) 1,000 mg PO Q6H PRN PRN Reason: Fever >99 Stop: 08/07/25 17:02 Apixaban (Apixaban 2.5 Mg Tablet) 5 mg GT BID [facility] Stop: 07/29/25 20:59 Last Admin: 07/10/25 09:17 Dose: 5 mg Documented By: Admin: 07/09/25 21:09 Dose: 5 mg Documented By: Admin: 07/09/25 08:46 Dose: 5 mg Documented By: Admin: 07/08/25 21:23 Dose: 5 mg Documented By: FLORENTINO Baclofen (Baclofen 10 Mg Tablet) 5 mg GT TID KIT Stop: 08/09/25 13:59 Fludrocortisone Acetate (Fludrocortisone Acetate 0.1 Mg Tablet) 0.1 mg GT DAILY KIT Stop: 08/08/25 08:59 Last Admin: 07/10/25 09:17 Dose: 0.1 mg Documented By: Admin: 07/09/25 08:46 Dose: 0.1 mg Documented By: BALDEMAR Acetaminophen (Ofirmev Inj) 1,000 mg in 100 mls @ 250 mls/hr IV STAT STA Stop: 07/08/25 15:15 Last Infusion: 07/08/25 16:05 Dose: Infused Documented By: Admin: 07/08/25 15:04 Dose: 250 mls/hr Documented By: JADA Piperacillin Sod/Tazobactam (Sod 4.5 gm/ Sodium Chloride) 100 mls @ 200 mls/hr IV STAT STA; Protocol Stop: 07/08/25 15:22 Last Infusion: 07/08/25 16:05 Dose: Infused Documented By: Admin: 07/08/25 15:06 Dose: 200 mls/hr Documented By: JADA Lactated Ringer's (Lactated Ringers) 1,000 mls @ 999 mls/hr IV .Q1H1M ONE Stop: 07/08/25 15:53 Last Infusion: 07/08/25 16:07 Dose: Infused Documented By: Admin: 07/08/25 15:06 Dose: 999 mls/hr Documented By: JADA Vancomycin/Sodium Chloride (Vancomycin/Ns 1 Gm Ivpb) 200 mls @ 120 mls/hr IV X1 ONE Stop: 07/08/25 16:39 Last Infusion: 07/08/25 18:57 Dose: Infused Documented By: Admin: 07/08/25 16:55 Dose: 120 mls/hr Documented By: MAGEN Lactated Ringer's (Lactated Ringers) 1,000 mls @ 999 mls/hr IV .Q1H1M ONE Stop: 07/08/25 18:07 Last Infusion: 07/08/25 18:28 Dose: Infused Documented By: Admin: 07/08/25 17:13 Dose: 999 mls/hr Documented By: MAGEN Doxycycline Hyclate 100 mg/ (Sodium Chloride) 100 mls @ 100 mls/hr IV BID KIT Stop: 07/15/25 20:59 Last Admin: 07/10/25 09:17 Dose: 100 mls/hr Documented By: Infusion: 07/09/25 21:34 Dose: Infused Documented By: Admin: 07/09/25 20:34 Dose: 100 mls/hr Documented By: Infusion: 07/09/25 09:46 Dose: Infused Documented By: Admin: 07/09/25 08:46 Dose: 100 mls/hr Documented By: Infusion: 07/08/25 23:56 Dose: Infused Documented By: Admin: 07/08/25 22:56 Dose: 100 mls/hr Documented By: JUSTICE Piperacillin/Tazobactam/Dextrose (Zosyn) 3.375 gm in 50 mls @ 12.5 mls/hr IV Q8HR KIT; Protocol Stop: 07/15/25 21:59 Piperacillin/Tazobactam/Dextrose (Zosyn) 3.375 gm in 50 mls @ 12.5 mls/hr IV Q6HR KIT; Protocol Stop: 07/16/25 00:00 Last Admin: 07/10/25 05:27 Dose: 12.5 mls/hr Documented By: Infusion: 07/10/25 03:17 Dose: Infused Documented By: Admin: 07/09/25 23:17 Dose: 12.5 mls/hr Documented By: Infusion: 07/09/25 21:08 Dose: Infused Documented By: Admin: 07/09/25 17:08 Dose: 12.5 mls/hr Documented By: Infusion: 07/09/25 16:24 Dose: Infused Documented By: Admin: 07/09/25 12:24 Dose: 12.5 mls/hr Documented By: Infusion: 07/09/25 09:13 Dose: Infused Documented By: Admin: 07/09/25 05:13 Dose: 12.5 mls/hr Documented By: Infusion: 07/09/25 04:36 Dose: Infused Documented By: Admin: 07/09/25 00:36 Dose: 12.5 mls/hr Documented By: SS Vancomycin/Sodium Chloride (Vancomycin/Ns 500 Mg Ivpb) 100 mls @ 120 mls/hr IV X1 ONE Stop: 07/09/25 10:49 Last Admin: 07/09/25 10:22 Dose: 120 mls/hr Documented By: BALDEMAR Vancomycin/Sodium Chloride (Vancomycin/Ns 500 Mg Ivpb) 100 mls @ 120 mls/hr IV QDAY@1000 KIT Stop: 07/17/25 09:59 Last Admin: 07/10/25 09:22 Dose: 120 mls/hr Documented By: BALDEMAR Lansoprazole (Lansoprazole 30 Mg Tab.Rap.) 30 mg GT QDAY KIT Stop: 08/08/25 08:59 Last Admin: 07/10/25 09:17 Dose: 30 mg Documented By: Admin: 07/09/25 08:45 Dose: 30 mg Documented By: BALDEMAR Levetiracetam (Levetiracetam Liqd 500 Mg/5 Ml Udc) 1,000 mg GT BID KIT Stop: 08/07/25 20:59 Last Admin: 07/10/25 09:17 Dose: 1,000 mg Documented By: Admin: 07/09/25 21:09 Dose: 1,000 mg Documented By: Admin: 07/09/25 08:45 Dose: 1,000 mg Documented By: Admin: 07/08/25 22:56 Dose: 1,000 mg Documented By: JUSTICE Lorazepam (Lorazepam 0.5 Mg Tablet) 0.5 mg GT Q6HR PRN PRN Reason: Increased RR Stop: 07/15/25 10:27 Metoclopramide HCl (Metoclopramide 5 Mg Tablet) 5 mg GT TID KIT Stop: 08/07/25 21:59 Last Admin: 07/10/25 05:28 Dose: 5 mg Documented By: Admin: 07/09/25 21:09 Dose: 5 mg Documented By: Admin: 07/09/25 13:34 Dose: 5 mg Documented By: Admin: 07/09/25 05:13 Dose: 5 mg Documented By: Admin: 07/08/25 22:57 Dose: 5 mg Documented By: JUSTICE Midodrine (Midodrine 5 Mg Tablet) 10 mg GT TID KIT Stop: 08/07/25 21:59 Last Admin: 07/10/25 05:28 Dose: 10 mg Documented By: Admin: 07/09/25 21:12 Dose: 10 mg Documented By: Admin: 07/09/25 13:41 Dose: 10 mg Documented By: Admin: 07/09/25 05:12 Dose: 10 mg Documented By: Admin: 07/09/25 00:33 Dose: 10 mg Documented By: JUSTICE Pantoprazole Sodium (Pantoprazole Inj 40 Mg Vial) 40 mg IVP QDAY KIT Stop: 08/08/25 08:59 Last Admin: 07/10/25 09:27 Dose: 40 mg Documented By: Admin: 07/09/25 08:46 Dose: 40 mg Documented By: BALDEMAR Pharmacy Consult (Vancomycin Pharmacy To Dose 1 Each Each) 1 each IV STAT PRN PRN Reason: CONSULT Stop: 08/07/25 14:52 Pharmacy Consult (Pharmacy Renal Dose Adjustment 1 Ea) 1 each XX PRN PRN PRN Reason: CONSULT Stop: 08/07/25 19:15 Phenytoin (Phenytoin 50 Mg Tab Chew) 300 mg GT DAILY KIT Stop: 08/08/25 08:59 Last Admin: 07/10/25 09:20 Dose: 300 mg Documented By: Admin: 07/09/25 09:32 Dose: 300 mg Documented By: BALDEMAR Polyethylene Glycol (Polyethylene Glycol 17 Gm Packet) 17 gm GT QDAY PRN PRN Reason: No BM Per Bowel Management Pro Stop: 08/07/25 19:12 Sodium Chloride (Sodium Chloride Rt 10% 15 Ml Nebu) 5 ml INH X1 ONE Stop: 07/08/25 20:30 Last Admin: 07/09/25 02:13 Dose: Not Given Documented By: PAR Non-Admin Reason: Other, see note See above Consultations Consultation(s) initiated? (list below): No Diagnosis Fever Differential Diagnosis: other (See MDM ) Most likely diagnosis given after review of the tests above:: Pneumonia Admission Indicated Admission indicated?: indicated Admission Request Was there a request for admission?: Yes Admission Attestation Admission request attestation: Discussed case with Hospitalist service regarding admission. Discussed patients ED course, exam findings, labs, and radiology results. The Hospitalist [agrees] to accept the patient for admission. Disposition Plan Disposition Plan: Admit Critical Care Time Critical Care Time Critical Care Time: Yes Total Critical Care Time (min.): 35 Attestation: The high probability of sudden, clinically significant deterioration in the patient's condition required the highest level of my preparedness to intervene urgently. The services I provided to this patient were to treat and/or prevent clinically significant deterioration. Services included the following: chart data review, reviewing nursing notes and/or old charts, documentation time, sql server consultant collaboration regarding findings and treatment options, medication orders and management, direct patient care, vital sign assessments and ordering, interpreting and reviewing diagnostic studies and lab tests. Aggregate critical care time includes only time during which I was engaged in work directly related to the patient's care, as described above, whether at bedside or elsewhere in the Emergency Department. It did not include time spent performing other reported procedures or the services of residents, students, nurses or physician assistants. Discharge Plan Plan Patient Disposition: Admit Acute Care w/in Hospital Patient condition on transfer: Stable Problem List Clinical Impression: Pneumonia Patient/Caregiver Discharge Instructions Discharge Activity: resume usual activities
[2025-07-08 13:10] LABS: Basophils # (Auto) 0.1 Thou/mm3 (0.0-0.2); Basophils % (Auto) 0 % (0-2.5); Eosinophils # (Auto) 0.7 Thou/mm3 (0.0-0.5); Eosinophils % (Auto) 3 % (0-10); Hematocrit 33.1 % (41.0-53.0); Hemoglobin 10.0 g/dL (13.5-16.0); Immature Granulocytes Auto 0.14 Thou/mm3 (0.00-0.00); Lymphocytes # (Auto) 1.0 Thou/mm3 (1.0-4.8); Lymphocytes % (Auto) 4 % (10-50); Mean Corpuscular HGB Conc 30.2 g/dl (31.0-37.0); Mean Corpuscular Hemoglobin 28.2 pg (25.0-35.0); Mean Corpuscular Volume 94 fL (80-100); Monocytes # (Auto) 0.9 Thou/mm3 (0.0-0.8); Monocytes % (Auto) 4 % (0-12); Neutrophils # (Auto) 21.9 Thou/mm3 (1.8-7.7); Neutrophils % (Auto) 89 % (37-80); Nucleated Red Blood Cell # 0.00 Thou/mm3 (0.00-0.00); Nucleated Red Blood Cell % 0 /100 WBC (0); Platelet Count 308 Thou/mm3 (140-440); RDW Standard Deviation 52.5 fL (35.1-43.9); Red Blood Count 3.54 Miln/mm3 (4.50-5.90); White Blood Count 24.6 Thou/mm3 (3.8-10.6)
[2025-07-08 13:12] LABS: Bilirubin,Urine Negative (Negative); Blood,Urine 2+ (Negative); Color,Urine Yellow (Lt Yel-Yel); Culture Indicated,Urine Not Indicated; Glucose, Urine Negative (Negative); Ketones,Urine Negative (Negative); Leukocyte Esterase,Urine Positive (Negative); Nitrite,Urine Negative (Negative); PH,Urine 8.0 (5.0-7.0); Protein,Urine 2+ (Neg - Trace); RBC,Urine < 1 /hpf (0-3); Specific Gravity,Urine 1.016 (1.001-1.035); Urobilinogen,Urine Negative mg/dL (0.0-1.0); WBC,Urine 2 /hpf (0-5)
[2025-07-08 13:21] LABS: Clarity,Urine Cloudy (Clear/Hazy)
[2025-07-08 13:25] LABS: INR 1.1 (0.9-1.3); Partial Thromboplastin Time 33.6 Seconds (22.0-36.0); Prothrombin Time 11.9 Seconds (9.0-12.2)
[2025-07-08 13:37] LABS: Base Excess 3 (-3-3); HCO3 28 mEq/L (20-26); Inspired Oxygen, FIO2 35 %; O2 Saturation 98 % (91-98); PCO2 45 mmHg (32.0-48.0); PO2 86 mmHg (83-108); pH, Arterial 7.40 (7.35-7.45)
[2025-07-08 13:38] LABS: B-Type Natriuretic Peptide 36 pg/mL (0-100)
[2025-07-08 13:38] LABS: Allen Test Performed/OK; Puncture Site Right Radial
[2025-07-08 13:44] LABS: Alanine Aminotransferase 47 U/L (10-49); Albumin, Serum 4.1 gm/dL (3.5-5.0); Albumin/Globulin Ratio 1.2 (1.2-2.2); Alkaline Phosphatase 210 U/L (46-116); Anion Gap 12 (7-16); Aspartate Amino Transferase 26 U/L (0-34); BUN/Creatinine Ratio 25 Ratio (12-20); Bilirubin,Total < 0.2 mg/dL (0.3-1.2); Blood Urea Nitrogen 52 mg/dL (9-23); Calcium 9.1 mg/dL (8.3-10.6); Calcium (Corrected) 9.1 mg/dL (8.5-10.1); Carbon Dioxide 28.4 mMol/L (20.0-31.0); Chloride 105 mMol/L (98-107); Creatinine (Component) 2.1 mg/dL (0.6-1.3); Estimated Creatinine Clearance 29.7 mL/min (>60); Globulin 3.5 gm/dL (2.3-3.5); Glucose 116 mg/dL (74-106); LDH (Lactate Dehydrogenase) 190 U/L (120-246); Lipase 22 U/L (12-53); Magnesium 2.4 mg/dL (1.6-2.6); Osmolality,Calculated 303 (275-295); Phosphorous 3.3 mg/dL (2.4-5.1); Potassium 4.5 mMol/L (3.4-5.1); Procalcitonin 1.53 ng/ml (0.0-0.49); Sodium 145 mMol/L (136-145); Total Protein 7.6 gm/dL (5.7-8.2); Troponin I < 0.002 ng/mL (0.0-0.045); eGFR 40 See Note
--- NOTE | 2025-07-08 13:55 | XR_ITS ---
Examination: AP chest single view Technique one AP mobile semiupright chest single view Date and time: July 08, 2025, 1352 hours, comparison April 24, 2025 INDICATIONS: Interval significant right upper lobe pneumonia Normal heart size Endotracheal tube tip 6.6 cm above dudley IMPRESSION: Significant right upper lobe pneumonia
[2025-07-08] MEDS: ACETAMINOPHEN IVPB 1,000 MG/100 ML VIAL 250 MG IV (15:04)
[2025-07-08] MEDS: RINGERS LACTATED 1000 ML 1,000 ML 999 ML IV ×2 (15:06→17:13)
[2025-07-08] MEDS: PIPER/TAZO INJ 4.5 GM in SODIUM CHLORIDE 0.9% (POP) 100 ML IV (15:06)
[2025-07-08 16:15] LABS: Influenza A Ag Negative; Influenza B Ag Negative
[2025-07-08] MEDS: VANCOMYCIN/NS 1 GM IVPB 200 ML IV (16:55)
--- NOTE | 2025-07-08 19:45 | ESHP_ITS ---
<Statement entered by Armando Waite MD - 07/08/25 22:48> Note reviewed and agree with care plan as documented. Please refer to the note below for further details. Plan discussed with attending physician Dr. Geovani Waite MD PGY-2 Internal Medicine Documentation for date of: 07/08/25 HPI History of Present Illness History of present illness: 39-year-old male with past medical history of 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, status post tracheostomy, mechanical ventilation, PEG tube, suprapubic catheter, right nephrostomy tube due to obstructive uropathy, factor V Leyden deficiency, and bilateral upper extremity DVT, presented to the ED from a subacute facility for the evaluation of persistent fevers that had begun since the day before. Patient received a dose of IV Rocephin yesterday. Temperature this morning was 101.2F, given Tylenol. History unable to be obtained as the patient's status as noted above. ED Course: Vitals showed T101.1F, HR 124, RR 38, BP 132/73, O2 97% on mechanical ventilation. Labs showed leukocytosis 24.6, Hgb 10, VBG pH 7.4. CR 2.1 at baseline. Pro-Chuck 1.53. LA normal, no transaminitis. UA positive for leukoesterase, no bacteria. Blood pressure went down with the lowest of 77/58 at 5 PM 07/08. Patient status post 2 L of LR in the ED, which stabilized BP to 97/74 Chest x-ray showed significant right upper lobe pneumonia. Meds: [see Medication List]. Allergy: [none] PMHx: Anoxic brain injury, obstructive uropathy, factor V Leyden deficiency, bilateral upper extremity DVT PSHx: Gastrostomy, tracheostomy, nephrostomy, suprapubic catheter placement Fam Hx: [non-contributory] Soc Hx: [Denies smoking or using tobacco products]. [Denies drinking alcohol]. [Denies using marijuana, or illicit drugs]. Patient is being admitted for inpatient management of pneumonia. Exam Vital Signs Temp Pulse Resp BP Pulse Ox O2 Del Method FiO2 98.8 F 104 H 26 H 97/74 100 Trach Collar 35 07/08/25 18:38 07/08/25 18:38 07/08/25 18:38 07/08/25 18:38 07/08/25 18:38 07/08/25 18:38 07/08/25 18:38 Narrative Exam GENERAL: Trach & peg. Intense contractions especially in lower extremities. HEENT: NC/AT. Moist mucosa. PERRLA/EOMI. CARDIO: Heart RRR, no obvious murmurs, no JVD. PULM: Mechanical breath sounds heard bilaterally GI: Abdomen soft, NT/ND, +BS. URO/BARRER AND TACKER: +Lal catheter SKIN/MSK/EXT: No discoloration/rashes/edema/amputations. +Pedal pulses present B/L. NEURO: Oriented x0 Results: Labs 07/09/25 06:23 07/09/25 06:23 Labs: Short CBC 07/08/25 Range/Units 12:40 WBC 24.6 H (3.8-10.6) Thou/mm3 Hgb 10.0 L (13.5-16.0) g/dL Hct 33.1 L (41.0-53.0) % Plt Count 308 (140-440) Thou/mm3 BMP 07/08/25 12:40 Sodium 145 Potassium 4.5 Chloride 105 Carbon Dioxide 28.4 BUN 52 H Creatinine 2.1 H Glucose 116 H Calcium 9.1 Cardiac Enzymes 07/08/25 Range/Units 12:40 Troponin I < 0.002 (0.0-0.045) ng/mL Liver Function 07/08/25 Range/Units 12:40 Total Bilirubin < 0.2 L (0.3-1.2) mg/dL AST 26 (0-34) U/L ALT 47 (10-49) U/L Alkaline Phosphatase 210 H (46-116) U/L Albumin 4.1 (3.5-5.0) gm/dL Urine 07/08/25 Range/Units 12:40 Urine Color Yellow (Lt Yel-Yel) Urine Clarity Cloudy A (Clear/Hazy) Urine pH 8.0 H (5.0-7.0) Ur Specific [place] 1.016 (1.001-1.035) Urine Protein 2+ A (Neg - Trace) Urine Glucose (UA) Negative (Negative) ABG Interpretation ABG results: 07/08/25 13:30 ABG pH 7.40 ABG pCO2 45 ABG pO2 86 ABG HCO3 28 H ABG O2 Saturation 98 ABG Base Excess 3 Quality Measures Quality Measures sepsis Current suspected stage: ruled out Possible source: pulmonary Blood cultures ordered: completed in ED Antibiotic ordered: Yes Medications Home Medications and Allergies Allergies Allergy/AdvReac Type Severity Reaction Status Date / Time No Known Allergies Allergy Verified 07/08/25 12:29 Visit Medications Acetaminophen (Acetaminophen 325 Mg Tablet) 1,000 mg PO Q6H PRN PRN Reason: Fever >99 Stop: 08/07/25 17:02 Apixaban (Apixaban 2.5 Mg Tablet) 5 mg GT BID KIT Stop: 07/29/25 20:59 Fludrocortisone Acetate (Fludrocortisone Acetate 0.1 Mg Tablet) 0.1 mg GT DAILY KIT Stop: 08/08/25 08:59 Doxycycline Hyclate 100 mg/ (Sodium Chloride) 100 mls @ 100 mls/hr IV BID KIT Stop: 07/15/25 20:59 Piperacillin/Tazobactam/Dextrose (Zosyn) 3.375 gm in 50 mls @ 12.5 mls/hr IV Q8HR KIT; Protocol Stop: 07/15/25 21:59 Lansoprazole (Lansoprazole 30 Mg Tab.Rap.Dr) 30 mg GT QDAY KIT Stop: 08/08/25 08:59 Levetiracetam (Levetiracetam Liqd 500 Mg/5 Ml Udc) 1,000 mg GT BID KIT Stop: 08/07/25 20:59 Metoclopramide HCl (Metoclopramide 5 Mg Tablet) 5 mg GT TID KIT Stop: 08/07/25 21:59 Midodrine (Midodrine 5 Mg Tablet) 10 mg GT TID KIT Stop: 08/07/25 21:59 Pantoprazole Sodium (Pantoprazole Inj 40 Mg Vial) 40 mg IVP QDAY KIT Stop: 08/08/25 08:59 Pharmacy Consult (Vancomycin Pharmacy To Dose 1 Each Each) 1 each IV STAT PRN PRN Reason: CONSULT Stop: 08/07/25 14:52 Pharmacy Consult (Pharmacy Renal Dose Adjustment 1 Ea) 1 each XX PRN PRN PRN Reason: CONSULT Stop: 08/07/25 19:15 Phenytoin (Phenytoin 50 Mg Tab Chew) 300 mg GT DAILY KIT Stop: 08/08/25 08:59 Polyethylene Glycol (Polyethylene Glycol 17 Gm Packet) 17 gm GT QDAY PRN PRN Reason: No BM Per Bowel Management Pro Stop: 08/07/25 19:12 Discontinued Medications Acetaminophen (Ofirmev Inj) 1,000 mg in 100 mls @ 250 mls/hr IV STAT STA Stop: 07/08/25 15:15 Last Infusion: 07/08/25 16:05 Dose: Infused Piperacillin Sod/Tazobactam (Sod 4.5 gm/ Sodium Chloride) 100 mls @ 200 mls/hr IV STAT STA; Protocol Stop: 07/08/25 15:22 Last Infusion: 07/08/25 16:05 Dose: Infused Lactated Ringer's (Lactated Ringers) 1,000 mls @ 999 mls/hr IV .Q1H1M ONE Stop: 07/08/25 15:53 Last Infusion: 07/08/25 16:07 Dose: Infused Vancomycin/Sodium Chloride (Vancomycin/Ns 1 Gm Ivpb) 200 mls @ 120 mls/hr IV X1 ONE Stop: 07/08/25 16:39 Last Infusion: 07/08/25 18:57 Dose: Infused Lactated Ringer's (Lactated Ringers) 1,000 mls @ 999 mls/hr IV .Q1H1M ONE Stop: 07/08/25 18:07 Last Infusion: 07/08/25 18:28 Dose: Infused Assessment & Plan Plan 39-year-old male with a past medical history of 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, status post tracheostomy, mechanical ventilation, PEG tube, suprapubic catheter, right nephrostomy tube due to obstructive uropathy, and factor V Leyden deficiency, , and bilateral upper extremity DVT, presented to [facility] from a subacute facility for persistent fevers for 24h. He is being admitted for inpatient IV antibiotics for treatment of ventilator associated pneumonia. #Ventilator associated pneumonia Patient presenting with fevers noted at subacute facility, trach and PEG, and is at high risk for aspiration due being ventilated. In the ED, patient had leukocytosis 24.6, elevated Pro-calcitonin 1.53. Pt received 2L of bolus LR in ED as BP trended down to 77/58 in ED, and MAP stablized subsequently. Chest x-ray shows significant Rt upper lobe pneumonia Clinical picture meets 4/4 SIRS criteria at presentation: T 101.1 (>100.9 or <96.8F), RR 38(>20/min), HR 26 (>90/min), WBC 24.6 (>12 or <4K or Bands >10%). No other evidence of end organ damage noted, but likely repiratory distress [facility]. Plan: Started patient on IV Zosyn 3.375g every 6h along with IV doxycyclin 100mg bid midodrine GT 10mg TID Follow-up on blood culture Sputum cultures ordered #Obstructive uropathy #CKD Stage IIIb Creatinine 2.1, baseline 1.8-2.0, BUN 52, eGFR 40 Patient has a nephrostomy tube (placed at [facility]) as well as suprapubic catheter Urinalysis positive for leukocyte esterase only, without nitrite, or bacteria present Recieved 2L bolus LR in ED Plan: Renally dose medications Avoid nephrotoxic agents Avoid overdiuresis #Seizure, patient history #Anoxic brain injury due to cardiac arrest Patient is nonverbal at baseline. Plan: Continue with home medications: Phenytoin GTE 300 mg daily Keppra 1000 mg GT twice daily Monitor Phenytoin level #History of bilateral upper extremity DVT #History of factor V Leyden deficiency Continue Eliquis 5 mg GT bid #Anemia of chronic disease Patient's hemoglobin was 10 No signs of active bleeding. Plan: Continue to monitor #Adrenal insufficiency, suspected Patient takes 0.1 mg fludrocortisone at twice daily at home, suspect due to history of adrenal insufficiency although not clearly documented. Would explain patient's significant hypotension and continued soft blood pressure. Plan: Resume home meds: Fludrocortisone 0.1 mg GT twice daily Health management: Diet: Tube feeds, pending diet eval DVT ppx: Eliquis GI ppx: Protonix Lines: PIV, suprapubic catheter, right-sided nephrostomy tube, trach Code status: DNR This case was discussed with my attending physician, Dr. Olivo, and senior resident, Dr Mariann Aviles. Nery Colunga, DO PGY I Attending Provider Attestation/Addendum I attest that I was physically present for the evaluation, physical examination, lab and imaging review of the patient with the residents. I discussed the case with the residents and agree with the findings and plans of care as documented above. After examination of the patient and review of the clinical data I feel that this patient needs admission to the hospital for further treatment/evaluation. Carin Olivo MD
[2025-07-08] MEDS: APIXABAN 2.5 MG TABLET 5 MG GT (21:23)
[2025-07-08] MEDS: levETIRAcetam LIQD 500 MG/5 ML UDC 1000 MG GT (22:56)
[2025-07-08] MEDS: DOXYCYCLINE INJ 100 MG in SODIUM CHLORIDE 0.9% (POP) 100 ML IV (22:56)
[2025-07-08] MEDS: METOCLOPRAMIDE 5 MG TABLET GT (22:57)
[2025-07-09] VITALS (14 sets, daily range): BP systolic 92–109; BP diastolic 62–72; PULSE 78–127; RESP 19–31; TEMP 36.3–37.8; O2SAT 97–100; BMI 31.1; BMI 31.2
[2025-07-09] MEDS: MIDODRINE 5 MG TABLET 10 MG GT ×4 (00:33→21:12)
[2025-07-09] MEDS: PIPER/TAZO 3.375 GM PREMIX 3.375 GM/50 ML BAG IV ×5 (00:36→23:17)
[2025-07-09] MEDS: METOCLOPRAMIDE 5 MG TABLET GT ×3 (05:13→21:09)
[2025-07-09 07:02] LABS: Basophils # (Auto) 0.1 Thou/mm3 (0.0-0.2); Basophils % (Auto) 1 % (0-2.5); Eosinophils # (Auto) 2.0 Thou/mm3 (0.0-0.5); Eosinophils % (Auto) 9 % (0-10); Hematocrit 27.5 % (41.0-53.0); Immature Granulocytes Auto 0.10 Thou/mm3 (0.00-0.00); Lymphocytes # (Auto) 1.1 Thou/mm3 (1.0-4.8); Lymphocytes % (Auto) 5 % (10-50); Mean Corpuscular HGB Conc 29.8 g/dl (31.0-37.0); Mean Corpuscular Hemoglobin 28.1 pg (25.0-35.0); Mean Corpuscular Volume 94 fL (80-100); Monocytes # (Auto) 1.3 Thou/mm3 (0.0-0.8); Monocytes % (Auto) 6 % (0-12); Neutrophils # (Auto) 16.6 Thou/mm3 (1.8-7.7); Neutrophils % (Auto) 78 % (37-80); Nucleated Red Blood Cell # 0.00 Thou/mm3 (0.00-0.00); Nucleated Red Blood Cell % 0 /100 WBC (0); Platelet Count 305 Thou/mm3 (140-440); RDW Standard Deviation 52.7 fL (35.1-43.9); Red Blood Count 2.92 Miln/mm3 (4.50-5.90); White Blood Count 21.2 Thou/mm3 (3.8-10.6)
[2025-07-09 07:03] LABS: Hemoglobin 8.2 g/dL (13.5-16.0)
[2025-07-09 07:34] LABS: Alanine Aminotransferase 29 U/L (10-49); Albumin, Serum 3.6 gm/dL (3.5-5.0); Albumin/Globulin Ratio 1.1 (1.2-2.2); Alkaline Phosphatase 174 U/L (46-116); Anion Gap 13 (7-16); Aspartate Amino Transferase 15 U/L (0-34); BUN/Creatinine Ratio 19 Ratio (12-20); Bilirubin,Total 0.2 mg/dL (0.3-1.2); Blood Urea Nitrogen 45 mg/dL (9-23); Calcium 9.3 mg/dL (8.3-10.6); Calcium (Corrected) 9.6 mg/dL (8.5-10.1); Carbon Dioxide 27.2 mMol/L (20.0-31.0); Cardiac Risk Estimate 3.3 RATIO (4.0-6.7); Chloride 110 mMol/L (98-107); Cholesterol 103 mg/dL (132-200); Creatinine (Component) 2.4 mg/dL (0.6-1.3); Estimated Creatinine Clearance 31.1 mL/min (>60); Globulin 3.4 gm/dL (2.3-3.5); Glucose 85 mg/dL (74-106); HDL Cholesterol 31 mg/dL (40-60); LDL Cholesterol,Calculated 52 mg/dL (0-130); Magnesium 2.6 mg/dL (1.6-2.6); Osmolality,Calculated 308 (275-295); Phosphorous 3.3 mg/dL (2.4-5.1); Potassium 4.1 mMol/L (3.4-5.1); Sodium 150 mMol/L (136-145); Total Protein 7.0 gm/dL (5.7-8.2); Triglycerides 101 mg/dL (30-150); Vancomycin,Random 17.5 mcg/mL; eGFR 34 See Note
--- NOTE | 2025-07-09 08:14 | ESPR_ITS ---
Documentation for date of: 07/09/25 Subjective Subjective Interval history: No acute overnight events. Seen and examined at bedside. Wound nurse present and states that he has stage IV ischial ulcers but did not appear to be infected/contributing to patient's clinical picture. Vital signs show a pulse of 102, respiratory rate of 24 but has been remained afebrile since yesterday. CBC shows improving leukocytosis, hemoglobin dropped from 10 to 8.2 without evidence of bleeding. Sodium increased from 145 to 150 but started tube feedings with water flushes. Creatinine also increased but anticipate improvement after feeding. Sputum and urine cultures showing GNR, pending finalization of cultures. Exam Vital Signs Temp Pulse Resp BP Pulse Ox O2 Del Method FiO2 98.1 F 104 H 22 H 92/63 99 Trach Collar 35 07/09/25 08:00 07/09/25 08:00 07/09/25 08:00 07/09/25 08:00 07/09/25 08:00 07/09/25 08:00 07/09/25 06:45 Narrative Exam GENERAL: Trach & peg. Intense contractions especially in lower extremities. HEENT: NC/AT. Moist mucosa. PERRLA/EOMI. CARDIO: Heart RRR, no obvious murmurs, no JVD. PULM: Mechanical breath sounds heard bilaterally GI: Abdomen soft, NT/ND, +BS. 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 +Pedal pulses present B/L. NEURO: Oriented x0 Objective Labs 07/10/25 05:32 07/10/25 05:32 Labs: Laboratory Results - last 24 hr 07/08/25 07/08/25 07/08/25 12:40 13:30 15:35 WBC 24.6 H RBC 3.54 L Hgb 10.0 L Hct 33.1 L MCV 94 MCH 28.2 MCHC 30.2 L RDW Std Deviation 52.5 H Plt Count 308 Neut % (Auto) 89 H Lymph % (Auto) 4 L [place] % (Auto) 4 Eos % (Auto) 3 Baso % (Auto) 0 Neut # (Auto) 21.9 H Lymph # (Auto) 1.0 [place] # (Auto) 0.9 H Eos # (Auto) 0.7 H Baso # (Auto) 0.1 Immature Gran # (Auto) 0.14 H Absolute Nucleated RBC 0.00 Immature Gran % 1 H Nucleated RBC % 0 PT 11.9 INR 1.1 APTT 33.6 Puncture Site Right Radial ABG pH 7.40 ABG pCO2 45 ABG pO2 86 ABG HCO3 28 H ABG O2 Saturation 98 ABG Base Excess 3 FiO2 35 Sodium 145 Potassium 4.5 Chloride 105 Carbon Dioxide 28.4 Anion Gap 12 BUN 52 H Creatinine 2.1 H Estim Creat Clear Calc 29.7 L eGFR 40 L BUN/Creatinine Ratio 25 H Glucose 116 H Calculated Osmolality 303 H Lactic Acid 1.7 Calcium 9.1 Corrected Calcium 9.1 Phosphorus 3.3 Magnesium 2.4 Total Bilirubin < 0.2 L AST 26 ALT 47 Alkaline Phosphatase 210 H Lactate Dehydrogenase 190 Troponin I < 0.002 B-Natriuretic Peptide 36 Total Protein 7.6 Albumin 4.1 Globulin 3.5 Albumin/Globulin Ratio 1.2 Triglycerides Cholesterol LDL Cholesterol, Calc HDL Cholesterol Cholesterol/HDL Ratio Lipase 22 Procalcitonin 1.53 H Ur Collection Type Catheter Urine Color Yellow Urine Clarity Cloudy A Urine pH 8.0 H Ur Specific [place] 1.016 Urine Protein 2+ A Urine Glucose (UA) Negative Urine Ketones Negative Urine Blood 2+ A Urine Nitrite Negative Urine Bilirubin Negative Urine Urobilinogen (Auto) Negative Ur Leukocyte Esterase Positive Urine RBC < 1 Urine WBC 2 Ur Squamous Epith Cells 0 Urine Bacteria None Ur Culture Indicated? Not Indicated Random Vancomycin Influenza A (Rapid) Negative Influenza B (Rapid) Negative 07/09/25 06:23 WBC 21.2 H RBC 2.92 L Hgb 8.2 L Hct 27.5 L MCV 94 MCH 28.1 MCHC 29.8 L RDW Std Deviation 52.7 H Plt Count 305 Neut % (Auto) 78 Lymph % (Auto) 5 L [place] % (Auto) 6 Eos % (Auto) 9 Baso % (Auto) 1 Neut # (Auto) 16.6 H Lymph # (Auto) 1.1 [place] # (Auto) 1.3 H Eos # (Auto) 2.0 H Baso # (Auto) 0.1 Immature Gran # (Auto) 0.10 H Absolute Nucleated RBC 0.00 Immature Gran % 1 H Nucleated RBC % 0 PT INR APTT Puncture Site ABG pH ABG pCO2 ABG pO2 ABG HCO3 ABG O2 Saturation ABG Base Excess FiO2 Sodium 150 H Potassium 4.1 Chloride 110 H Carbon Dioxide 27.2 Anion Gap 13 BUN 45 H Creatinine 2.4 H Estim Creat Clear Calc 31.1 L eGFR 34 L BUN/Creatinine Ratio 19 Glucose 85 Calculated Osmolality 308 H Lactic Acid Calcium 9.3 Corrected Calcium 9.6 Phosphorus 3.3 Magnesium 2.6 Total Bilirubin 0.2 L AST 15 ALT 29 Alkaline Phosphatase 174 H D Lactate Dehydrogenase Troponin I B-Natriuretic Peptide Total Protein 7.0 Albumin 3.6 D Globulin 3.4 Albumin/Globulin Ratio 1.1 L Triglycerides 101 Cholesterol 103 L LDL Cholesterol, Calc 52 HDL Cholesterol 31 L Cholesterol/HDL Ratio 3.3 L Lipase Procalcitonin Ur Collection Type Urine Color Urine Clarity Urine pH Ur Specific [place] Urine Protein Urine Glucose (UA) Urine Ketones Urine Blood Urine Nitrite Urine Bilirubin Urine Urobilinogen (Auto) Ur Leukocyte Esterase Urine RBC Urine WBC Ur Squamous Epith Cells Urine Bacteria Ur Culture Indicated? Random Vancomycin 17.5 Influenza A (Rapid) Influenza B (Rapid) ABG Interpretation ABG results: 07/08/25 13:30 ABG pH 7.40 ABG pCO2 45 ABG pO2 86 ABG HCO3 28 H ABG O2 Saturation 98 ABG Base Excess 3 Quality Measures Quality Measures sepsis Current suspected stage: ruled out Possible source: pulmonary Blood cultures ordered: completed in ED Antibiotic ordered: Yes Assessment & Plan Assessment Current Active Medications: Generic Name Dose Route Start Last Admin Trade Name Freq PRN Reason Stop Dose Admin Acetaminophen 1,000 mg 07/09/25 08:08 Acetaminophen 500 Mg Tablet PO 08/07/25 17:02 Q6H PRN Fever >99 Apixaban 5 mg 07/08/25 21:00 07/08/25 21:23 Apixaban 2.5 Mg Tablet GT 07/29/25 20:59 5 mg BID KIT Administration Fludrocortisone Acetate 0.1 mg 07/09/25 09:00 Fludrocortisone Acetate 0.1 Mg Tablet GT 08/08/25 08:59 DAILY KIT Doxycycline Hyclate 100 mg/ 100 mls @ 100 mls/hr 07/08/25 21:00 07/08/25 22:56 Sodium Chloride IV 07/15/25 20:59 100 mls/hr BID KIT Administration Piperacillin/Tazobactam/Dextrose 3.375 gm in 50 mls @ 12.5 mls/hr 07/09/25 00:00 07/09/25 05:13 Zosyn IV 07/16/25 00:00 12.5 mls/hr Q6HR KIT Administration Protocol Vancomycin/Sodium Chloride 100 mls @ 120 mls/hr 07/09/25 10:00 Vancomycin/Ns 500 Mg Ivpb IV 07/09/25 10:49 X1 ONE Lansoprazole 30 mg 07/09/25 09:00 Lansoprazole 30 Mg Tab.Rap. GT 08/08/25 08:59 QDAY KIT Levetiracetam 1,000 mg 07/08/25 21:00 07/08/25 22:56 Levetiracetam Liqd 500 Mg/5 Ml Udc GT 08/07/25 20:59 1,000 mg BID KIT Administration Metoclopramide HCl 5 mg 07/08/25 22:00 07/09/25 05:13 Metoclopramide 5 Mg Tablet GT 08/07/25 21:59 5 mg TID KIT Administration Midodrine 10 mg 07/08/25 22:00 07/09/25 05:12 Midodrine 5 Mg Tablet GT 08/07/25 21:59 10 mg TID KIT Administration Pantoprazole Sodium 40 mg 07/09/25 09:00 Pantoprazole Inj 40 Mg Vial IVP 08/08/25 08:59 QDAY KIT Pharmacy Consult 1 each 07/08/25 14:53 Vancomycin Pharmacy To Dose 1 Each Each IV 08/07/25 14:52 STAT PRN CONSULT Pharmacy Consult 1 each 07/08/25 19:16 Pharmacy Renal Dose Adjustment 1 Ea XX 08/07/25 19:15 PRN PRN CONSULT Phenytoin 300 mg 07/09/25 09:00 Phenytoin 50 Mg Tab Chew GT 08/08/25 08:59 DAILY KIT Polyethylene Glycol 17 gm 07/08/25 19:13 Polyethylene Glycol 17 Gm Packet GT 08/07/25 19:12 QDAY PRN No BM Per Bowel Management Pro Plan 39-year-old male with a past medical history of 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, status post tracheostomy, mechanical ventilation, PEG tube, suprapubic catheter, right nephrostomy tube due to obstructive uropathy, and factor V Leyden deficiency, , and bilateral upper extremity DVT, presented to [facility] from a subacute facility for persistent fevers for 24h. He is being admitted for inpatient IV antibiotics for treatment of ventilator associated pneumonia. #Ventilator associated pneumonia Patient presenting with fevers noted at subacute facility, trach and PEG, and is at high risk for aspiration due being ventilated. In the ED, patient had leukocytosis 24.6, elevated Pro-calcitonin 1.53. Pt received 2L of bolus LR in ED as BP trended down to 77/58 in ED, and MAP stablized subsequently. Chest x-ray shows significant Rt upper lobe pneumonia Clinical picture meets 4/4 SIRS criteria at presentation: T 101.1 (>100.9 or <96.8F), RR 38(>20/min), HR 26 (>90/min), WBC 24.6 (>12 or <4K or Bands >10%). No other evidence of end organ damage noted, but likely repiratory distress masked by mech ventelation. ? Zosyn 3.375g every 6h ? Doxycyclin 100mg bid ? midodrine GT 10mg TID ? Follow-up on blood culture ? Sputum cultures ordered #Obstructive uropathy #CKD Stage IIIb Creatinine 2.1, baseline 1.8-2.0, BUN 52, eGFR 40 Patient has a nephrostomy tube (placed at [facility]) as well as suprapubic catheter Urinalysis positive for leukocyte esterase only, without nitrite, or bacteria present Recieved 2L bolus LR in ED ? Renally dose medications ? Avoid nephrotoxic agents ? Avoid overdiuresis #Seizure, patient history #Anoxic brain injury due to cardiac arrest Patient is nonverbal at baseline. ? Phenytoin GTE 300 mg daily ? Keppra 1000 mg GT twice daily ? Monitor Phenytoin level #History of bilateral upper extremity DVT #History of factor V Leyden deficiency ? Continue Eliquis 5 mg GT bid #Anemia of chronic disease Patient's hemoglobin was 10 No signs of active bleeding. ? Continue to monitor #Adrenal insufficiency, suspected Patient takes 0.1 mg fludrocortisone at twice daily at home, suspect due to history of adrenal insufficiency although not clearly documented. Would explain patient's significant hypotension and continued soft blood pressure. ? Resume home meds: Fludrocortisone 0.1 mg GT twice daily Health management: Disposition: IV antibiotics for pneumonia and UTI Diet: resumed tube feeds DVT ppx: Eliquis GI ppx: Protonix Lines: PIV, suprapubic catheter, right-sided nephrostomy tube, trach Code status: DNR ----- Note reviewed and agree with care plan as documented. Please refer to the note below for further details. Plan discussed with attending physician Dr. Geovani Waite MD PGY-2 Internal Medicine Attending Provider Attestation/Addendum I attest that I was physically present for the evaluation, physical examination, lab and imaging review of the patient with the residents. I discussed the case with the residents and agree with the findings and plans of care as documented above. Carin Olivo MD
[2025-07-09] MEDS: levETIRAcetam LIQD 500 MG/5 ML UDC 1000 MG GT ×2 (08:45→21:09)
[2025-07-09] MEDS: LANSOPRAZOLE 30 MG TAB.RAP.DR GT (08:45)
[2025-07-09] MEDS: APIXABAN 2.5 MG TABLET 5 MG GT ×2 (08:46→21:09)
[2025-07-09] MEDS: FLUDROCORTISONE ACETATE 0.1 MG TABLET GT (08:46)
[2025-07-09] MEDS: DOXYCYCLINE INJ 100 MG in SODIUM CHLORIDE 0.9% (POP) 100 ML IV ×2 (08:46→20:34)
[2025-07-09] MEDS: PHENYTOIN 50 MG 300 MG GT (09:32)
--- NOTE | 2025-07-09 09:54 | PC.NURSE ---
attempted to start IV x2 unable. Will follow up
--- NOTE | 2025-07-09 10:03 | PC.SS ---
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 Patient is on a vent/trache/peg. Admitted for pneumonia. Patient's aunt, Dee, is the medical decision maker. D/c plan is for patient to return to our subacute. Alt medical decision maker: Deeadelaida Smith, aunt,
[2025-07-09] MEDS: VANCOMYCIN/NS 500 MG IVPB 100 ML 120 MG IV (10:22)
--- NOTE | 2025-07-09 10:30 | PC.DIETICIAN ---
Dietitian recommendation: When medically feasible, start Jevity 1.5 @ 20ml/hr, increase as tolerated by 10ml/hr Q 8hrs to goal of 60ml/hrx 20hrs, Hold 1 hr before and after Phenytoin. Provides: 1200ml total vol, 1800kcal, 77g protein. If no IVF, give water flushes of 300ml Q 4hrs or per MD (Hypernatremia) Add 30ml Prostat BID, mix with water Thank you
--- NOTE | 2025-07-09 10:50 | CHAP ---
Patient was visited by the Spiritual Care Volunteer who prayed for them silently. (Volunteer was in the hospital from C 9:30-10:50)
[2025-07-10] VITALS (8 sets, daily range): BP systolic 100–105; BP diastolic 38–70; PULSE 76–101; RESP 20–28; TEMP 36.1–36.3; O2SAT 97–100
[2025-07-10] MEDS: PIPER/TAZO 3.375 GM PREMIX 3.375 GM/50 ML BAG IV (05:27)
[2025-07-10] MEDS: METOCLOPRAMIDE 5 MG TABLET GT (05:28)
[2025-07-10] MEDS: MIDODRINE 5 MG TABLET 10 MG GT (05:28)
[2025-07-10 06:12] LABS: Basophils # (Auto) 0.1 Thou/mm3 (0.0-0.2); Basophils % (Auto) 1 % (0-2.5); Eosinophils # (Auto) 2.7 Thou/mm3 (0.0-0.5); Eosinophils % (Auto) 19 % (0-10); Hematocrit 26.8 % (41.0-53.0); Hemoglobin 8.0 g/dL (13.5-16.0); Immature Granulocytes Auto 0.05 Thou/mm3 (0.00-0.00); Lymphocytes # (Auto) 1.0 Thou/mm3 (1.0-4.8); Lymphocytes % (Auto) 7 % (10-50); Mean Corpuscular HGB Conc 29.9 g/dl (31.0-37.0); Mean Corpuscular Hemoglobin 28.2 pg (25.0-35.0); Mean Corpuscular Volume 94 fL (80-100); Monocytes # (Auto) 0.9 Thou/mm3 (0.0-0.8); Monocytes % (Auto) 6 % (0-12); Neutrophils # (Auto) 9.4 Thou/mm3 (1.8-7.7); Neutrophils % (Auto) 66 % (37-80); Nucleated Red Blood Cell # 0.00 Thou/mm3 (0.00-0.00); Nucleated Red Blood Cell % 0 /100 WBC (0); Platelet Count 295 Thou/mm3 (140-440); RDW Standard Deviation 51.8 fL (35.1-43.9); Red Blood Count 2.84 Miln/mm3 (4.50-5.90); White Blood Count 14.1 Thou/mm3 (3.8-10.6)
[2025-07-10 06:36] LABS: Alanine Aminotransferase 25 U/L (10-49); Albumin, Serum 3.9 gm/dL (3.5-5.0); Albumin/Globulin Ratio 1.1 (1.2-2.2); Alkaline Phosphatase 154 U/L (46-116); Anion Gap 9 (7-16); Aspartate Amino Transferase 17 U/L (0-34); BUN/Creatinine Ratio 13 Ratio (12-20); Bilirubin,Total < 0.2 mg/dL (0.3-1.2); Blood Urea Nitrogen 32 mg/dL (9-23); Calcium 9.5 mg/dL (8.3-10.6); Calcium (Corrected) 9.6 mg/dL (8.5-10.1); Carbon Dioxide 26.5 mMol/L (20.0-31.0); Chloride 111 mMol/L (98-107); Creatinine (Component) 2.4 mg/dL (0.6-1.3); Estimated Creatinine Clearance 29.5 mL/min (>60); Globulin 3.5 gm/dL (2.3-3.5); Glucose 113 mg/dL (74-106); Magnesium 2.5 mg/dL (1.6-2.6); Osmolality,Calculated 298 (275-295); Phosphorous 3.3 mg/dL (2.4-5.1); Potassium 3.9 mMol/L (3.4-5.1); Sodium 146 mMol/L (136-145); Total Protein 7.4 gm/dL (5.7-8.2); Vancomycin,Random 12.5 mcg/mL; eGFR 34 See Note
[2025-07-10] MEDS: APIXABAN 2.5 MG TABLET 5 MG GT (09:17)
[2025-07-10] MEDS: LANSOPRAZOLE 30 MG TAB.RAP.DR GT (09:17)
[2025-07-10] MEDS: FLUDROCORTISONE ACETATE 0.1 MG TABLET GT (09:17)
[2025-07-10] MEDS: DOXYCYCLINE INJ 100 MG in SODIUM CHLORIDE 0.9% (POP) 100 ML IV (09:17)
[2025-07-10] MEDS: levETIRAcetam LIQD 500 MG/5 ML UDC 1000 MG GT (09:17)
[2025-07-10] MEDS: PHENYTOIN 50 MG 300 MG GT (09:20)
[2025-07-10] MEDS: VANCOMYCIN/NS 500 MG IVPB 100 ML 120 MG IV (09:22)
--- NOTE | 2025-07-10 13:37 | ESDS_ITS ---
<Statement entered by Uzair Choe MD - 07/11/25 07:22> Patient was examined with the team including attending physician. Note reviewed, I agree with the discharge plan as documented. - Uzair Choe MD PGY 3 Disclaimer: The document may contain phonetic/typographic errors due to voice recognition software. Planned Discharge Date 07/10/25 DS: Providers Provider Date of admission: 07/08/25 16:54 Primary care physician: Gerri Bentely MD Admitting Provider: Carin Olivo MD Attending Provider on Admission: Carin Olivo MD Consults: 07/08/25 19:15 Referral Wound Care Routine Comment: 07/09/25 04:26 Referral Nutritional Services Routine Comment: Attending Provider on DC: Carin Olivo MD Discharging Provider: Nery Colunga DO DS: Diagnosis Problem List Completed Was Problem List Reviewed/Reconciled?: Yes Hospital Course Hospital Course Hospital course: 39-year-old male with a past medical history of 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, status post tracheostomy, mechanical ventilation, PEG tube, suprapubic catheter, right nephrostomy tube due to obstructive uropathy, and factor V Leyden deficiency, , and bilateral upper extremity DVT, presented to the ED on 07/08/2025 from a subacute facility for persistent fevers 101.1 for 24h. Chest x-ray showed significant Rt upper lobe pneumonia. He was admitted for inpatient IV antibiotics for treatment of ventilator associated pneumonia. Clinical picture met 4/4 SIRS criteria at presentation: T 101.1 (>100.9 or <96.8F), RR 38(>20/min), HR 26 (>90/min), WBC 24.6 (>12 or <4K or Bands >10%). Pt received 2L of bolus LR as BP was labile with a low of 77/58 in ED, and MAP stablized subsequently with addition of midodrine 10mg TID. Empiric antibiotic treatment with Zosyn 3.375g and doxycycline 100mg bid daily started on 07/08. Pt was found to have stage IV ischial ulcers which did not appear to be infected. Fever subsided and patient remained afebrile. RR, and leukocytosis improved. FiO2 35. Sodium increased to 150 and creatinine elevated, started tube feedings with water flushes.? While B ctx were negative for growth, sputum and urine cultures grew GNR, which speciated to Proteus susceptible to Zosyn which patient will complete 10 day course of as outpatient. At the time of discharge, patient is medically stable and deemed safe to return to his/her previous state of living. Admission Diagnoses: #Ventilator associated pneumonia #Obstructive uropathy #CKD stage IIIb # Seizure #Anoxic brain injury due to cardiac arrest #History of bilateral upper extremity DVT #History of factor V Leyden deficiency #Anemia of chronic disease #Adrenal insufficiency Discharge Instructions: * Follow-up with PCP within 1-2 weeks of discharge. * Continue IV Zosyn 3.375 every 6 hours for 10 more days, as your sputum and urine cultures were positive for Proteus growth. * Continue to take baclofen 10mg three times daily for pain. Take lorazepam 0.5mg every 6 hours for elevated respiratory rate or for anxiety. * You may follow-up with one of our residents doctor with the [facility] at the address below. * Continue taking medications as prescribed below. * Return to Emergency Room if symptoms persist, worsen, or new symptoms develop. [facility] [address] [place] [address] Status at Discharge Cognitive/behavioral status at discharge: stable Functional status at discharge: independent ambulation Overall status at discharge: patient is back to baseline Time Spent with Patient Time attestation: Total time spent providing and/or coordinating discharge services: 39 min Time spent: Greater than 30 minutes Exam Vital Signs Temp Pulse Resp BP Pulse Ox O2 Del Method FiO2 97.2 F 84 28 H 100/62 100 Mechanical Ventilation 35 07/10/25 11:55 07/10/25 11:55 07/10/25 11:55 07/10/25 11:55 07/10/25 11:55 07/10/25 11:55 07/10/25 08:00 Narrative Exam BP 100/70, respirations 20, temp 97, O2 saturation 98% on mechanical ventilation GENERAL: Trach & peg. Intense contractions especially in lower extremities. HEENT: NC/AT. Moist mucosa. PERRLA/EOMI. CARDIO: Heart RRR, no obvious murmurs, no JVD. PULM: Mechanical breath sounds heard bilaterally GI: Abdomen soft, NT/ND, +BS. URO/STITCHER STANDARD MACHINE: +Lal catheter SKIN/MSK/EXT: No discoloration/rashes/edema/amputations. +Pedal pulses present B/L. Stage IV ischial sacral ulcers, non infected and non purulent. NEURO: Oriented x0 Discharge Plan Plan Patient Disposition: Xfer Assisted Acute Patient condition on transfer: Stable Care Plan Goals: * Follow-up with PCP within 1-2 weeks of discharge. * Continue IV Zosyn 3.375 every 6 hours for 10 more days, as your sputum and urine cultures were positive for Proteus growth. * Continue to take baclofen 10mg three times daily for pain. Take lorazepam 0.5mg every 6 hours for elevated respiratory rate or for anxiety. * You may follow-up with one of our residents doctor with the [facility] at the address below. * Continue taking medications as prescribed below. * Return to Emergency Room if symptoms persist, worsen, or new symptoms develop. [facility] [address] [place] [address] Prescriptions/Referrals Prescriptions/Med Rec: New piperacillin-tazobactam 3.375 gram recon soln 3.375 g IV Q6H 10 Days Continued acetaminophen 325 mg tablet 650 mg G-tube Q6HR PRN (Reason: Pain) 383 Days Qty: 2 0RF phenytoin 50 mg tablet,chewable 300 mg G-tube DAILY 395 Days Qty: 2370 12RF Label Comments: Hazardous- Dispose of Properly *HOLD TUBE FEED FOR 1 HOUR BEFORE AND AFTER ADMINISTRATION OF MEDICATION. metoclopramide HCl 5 mg tablet 5 mg G-tube TID 384 Days Qty: 384 0RF ascorbic acid (vitamin C) 500 mg tablet 500 mg G-tube BID 384 Days Qty: 385 0RF baclofen 10 mg tablet 5 mg G-tube TID 384 Days Qty: 192 0RF lansoprazole 30 mg capsule,delayed release(DR/EC) 30 mg G-tube QDAY 383 Days Qty: 383 0RF midodrine 10 mg tablet 10 mg G-tube TID 384 Days Qty: 384 0RF Rx Instructions: hold if SBP >120 levetiracetam 100 mg/mL solution 1,000 mg G-tube BID 383 Days Qty: 4130 0RF Rx Instructions: give 1,000 mg (10 ml) for Seizure [id number] fum-folic ac 7.5 mg iron-400 mcg tablet 1 ea G-tube QDAY 383 Days Qty: 383 0RF Fludrocortisone 0.1 mg G-tube DAILY 383 Days 0RF Non Formulary Medication 250 ea G-tube BID PRN (Reason: Hiccups) 383 Days 0RF Label Comments: Gabapentin solution Rx Instructions: 250mg/5ml- give 5ml PGT for hiccups Non Formulary Medication 2 ea G-tube BID PRN (Reason: Pain) 383 Days 0RF Label Comments: MEDICATION NOT ON FORMULARY: Morphine Sulfate solution 4mg/ml DRUG NAME HERE: Morphine Sulfate DIRECTIONS FOR USE HERE: Morphine Sulfate 2mg/0.5ml Rx Instructions: Give 2mg/0.5ml PGT 30 minutes prior to pressure ulcer treatments 1x/shift (BID-PRN) Ear Wax Removal Drops 6.5 % drops 5 drp otic (ear) Q61D 344 Days Qty: 15 11RF Label Comments: 5 drops per ear at first med pass of shift. Then irrigate ears with NS at next med pass of each shift x 4 days for wax build up. lorazepam 0.5 mg tablet 0.5 mg G-tube Q6HR PRN (Reason: Increased RR) 383 Days Qty: 7 0RF lorazepam 2 mg/mL solution 2 mg IM [id number] PRN (Reason: Seizure Activity) 413 Days Qty: 1 0RF Rx Instructions: Give 2mg (1ml) IM for seizure activity, if seizure persists, administer second dose of Ativan (within 3 minutes)2mg. if medication not effective, send resident to ED for further evaluation and notify MD. Discontinued Ear Wax Removal Drops 6.5 % drops 5 drp otic (ear) Q61D 345 Days Qty: 15 11RF Label Comments: 5 drops per ear at first med pass of shift. Then irrigate ears with NS at next med pass of each shift x 4 days for wax build up. Ear Wax Removal Drops 6.5 % drops 5 drp otic (ear) Q61D 345 Days Qty: 15 11RF Rx Instructions: 5 drops per ear at first med pass of shift. Then irrigate ears with NS at next med pass of each shift x 4 days for wax build up. *Start on the of the month, every two months. Ear Wax Removal Drops 6.5 % drops 5 drp otic (ear) Q61D 344 Days Qty: 15 11RF Rx Instructions: 5 drops per ear at first med pass of shift. Then irrigate ears with NS at next med pass of each shift x 4 days for wax build up. *Start on the of the month, every two months. Ear Wax Removal Drops 6.5 % drops 5 drp otic (ear) Q61D 343 Days Qty: 15 11RF Label Comments: 5 drops per ear at first med pass of shift. Then irrigate ears with NS at next med pass of each shift x 4 days for wax build up. Ear Wax Removal Drops 6.5 % drops 5 drp otic (ear) Q61D 343 Days Qty: 15 11RF Rx Instructions: 5 drops per ear at first med pass of shift. Then irrigate ears with NS at next med pass of each shift x 4 days for wax build up. *Start on the 20th of the month, every two months. Ear Wax Removal Drops 6.5 % drops 5 drp otic (ear) Q61D 342 Days Qty: 15 11RF Label Comments: 5 drops per ear at first med pass of shift. Then irrigate ears with NS at next med pass of each shift x 4 days for wax build up. Ear Wax Removal Drops 6.5 % drops 5 drp otic (ear) Q61D 342 Days Qty: 15 11RF Label Comments: 5 drops per ear at first med pass of shift. Then irrigate ears with NS at next med pass of each shift x 4 days for wax build up. ceftriaxone 1 gram recon soln 1 g IV 2100 5 Days 0RF Label Comments: X5 days, pending all cultures, re-eval with once cultures come back acetaminophen 325 mg tablet 650 mg G-tube Q4HR PRN (Reason: Fever > 100.4) 7 Days 0RF No Action Eliquis 5 mg tablet 5 mg G-tube BID 413 Days Qty: 413 0RF Label Comments: Blood thinner Piperacill/Tazobactam 3.375 mg [Zosyn 3.375 mg] 3.375 GM SODIUM CHLORIDE 0.9% (Popper) [Ns 0.9% (P)] 50 ML 100 mls/hr IV Q6HR Reason for use: for UTI/PNA Ordered By: Yovany Silverio MD Last Taken: Unknown ipratropium-albuterol 0.5 mg-3 mg(2.5 mg base)/3 mL solution for nebulization 3 ml INH Q6HRRT 412 Days Qty: 90 0RF albuterol sulfate 2.5 mg /3 mL (0.083 %) solution for nebulization 2.5 mg INH Q4HRRT PRN (Reason: SOB or wheezing) 383 Days Qty: 180 0RF polyethylene glycol 3350 17 gram powder in packet 17 g G-tube PRN PRN (Reason: No BM Per Bowel Management Protocol) 384 Days Qty: 30 0RF Rx Instructions: Mix with 4oz of water before giving. Hold tube feeding for 30 minutes after administration. Notify provider if no results from Miralax. magnesium hydroxide [Milk of Magnesia] 400 mg/5 mL suspension 30 ml G-tube PRN PRN (Reason: Constipation) 383 Days Qty: 3000 0RF Rx Instructions: CONC: 400MG/5ML bisacodyl [Dulcolax (bisacodyl)] 10 mg suppository 10 mg RI PRN PRN (Reason: No BM Per Bowel Management Protocol) 383 Days Qty: 100 0RF Rx Instructions: Administer as needed on 6th shift, if MOM ineffective. Fleet Enema 19-7 gram/118 mL enema 133 ml RI PRN PRN (Reason: No BM Per Bowel Management Protocol) 412 Days Qty: 532 0RF artificial tear([id number]) [GenTeal Tears Moderate] 0.1-0.3-0.2 % drops 1 drp Both eyes BID 336 Days 0RF Rx Instructions: FOR DRYNESS Referrals: Gerri Bentley MD [Primary Care Provider] Patient/Caregiver Discharge Instructions Discharge Activity: resume usual activities Print Language: Ug[place] Stand Alone Forms: Vanessa Award Info., Patient Portal Info Letter Discharge Order Discharge Orders: Discharge (Routine); Ordered 07/10/25 Ordered By: Uzair Choe Quality Discharge Quality Measures VTE prophylaxis Attestestation Attestation I attest that I was physically present for the evaluation, physical examination, lab and imaging review of the patient with the residents. I discussed the case with the residents and agree with the findings and plans of care as documented above. Carin Olivo MD
== END 2025-07-10 11:54 | DRG 206 ==
LOC: SERX 17:17 → SERHOLD 17:49 → S2NX 22:11
PROVIDERS: Admitting Provider Student in an Organized Health Care Education/Training Program; Emergency Provider Emergency Medicine; PCP Hospitalist; Visit Provider Student in an Organized Health Care Education/Training Program
DX: J95.851 Ventilator associated pneumonia (principal); G93.1 Anoxic brain damage, not elsewhere classified; E27.40 Unspecified adrenocortical insufficiency; Z86.718 Personal history of other venous thrombosis and embolism; Z93.1 Gastrostomy status; Z93.0 Tracheostomy status; Z93.6 Other artificial openings of urinary tract status; N13.9 Obstructive and reflux uropathy, unspecified; N18.32 Chronic kidney disease, stage 3b; D63.1 Anemia in chronic kidney disease; Z79.01 Long term (current) use of anticoagulants; I95.9 Hypotension, unspecified; Z66 Do not resuscitate; L98.419 Non-pressure chronic ulcer of buttock with unspecified severity; Z79.52 Long term (current) use of systemic steroids; Z79.899 Other long term (current) drug therapy; Y84.8 Other medical procedures as the cause of abnormal reaction of the patient, or of later complication, without mention of misadventure at the time of the procedure
CPT/HCPCS: 36415; 36600; 71045; 80053; 80061; 80202; 81001; 82803; 83605; 83615; 83690; 83735; 83880; 84100; 84145; 84484; 85025; 85610; 85730; 87040; 87205; 87502; 87811; 93005; 94003; 96365; 96366; 96375; 99285; J0131; J2470; J2543; J3373; J3490; J7120; A9270